=== PATIENT | male | born 1950 | race Caucasian/White ===

== ENCOUNTER → 2017-01-29 | Outpatient (CLI) | payer MEDICARE, OTHER ==
[~2017-01-29] MED LIST: AMOX1TAB10 PO; ASPI325T32 PO; ATOR80TA75 PO; DOCU-144 PO; GLIP-95 PO; HYDR-3498 PO; HYDR-906 PO; IBUP-1542 PO; LANT3I SC; LEVEM SC; LISI40TA9 PO; METF1000 PO; METF500T4 PO; NOVO3I SC
== END | disposition home or self-care (01) ==
LOC: DIB 10:57 → MERGE 10:57
PROVIDERS: ATTEND Family Medicine
DX: Z02.9 Encounter for administrative examinations, unspecified (principal)

== ENCOUNTER 2017-02-08 16:17 | Emergency (ER) | payer MEDICARE, OTHER ==
[~2017-02-08] VITALS: Wt 69.0 kg
[~2017-02-08 16:17] MED LIST changes: -AMOX1TAB10 PO; -HYDR-906 PO; -IBUP-1542 PO; -LEVEM SC
--- NOTE | 2017-02-08 17:06 | ERA ---
ER Documentation Chief Complaint Date/Time DATE: 02/08/17 TIME: 17:05 Chief Complaint PT HAVING PROBLEM SWALLOWING, SENT PER PMD FOR EVAL FOR ANGIOEDEMA, -SOB HPI The patient is a 66-year-old male, presenting to the ER because of sore throat after vomiting around 1 PM, initially food then mucus. He was sent to the ER by his physician because of swollen uvula. He was well prior to this incident. He denies fever, syncope, near syncope, neck pain, chest pain, dyspnea, abdominal pain, vomiting, dysuria, diarrhea. He does not smoke, drink Past medical history: Diabetes mellitus, hypertension, dyslipidemia, history of cerebellar infarct Past surgical history: Left shoulder arthroscopy, left great toe amputation ROS All systems reviewed and are negative except as per history of present illness. Medications Home Meds Active Scripts Hydrocodone/Acetaminophen (Printer 5-325 Tablet) 1 Each Tablet, 1 TAB PO Q6H Y for PAIN, #10 TAB Prov:JOSE GIL MD 02/08/17 Ibuprofen* (Motrin*) 600 Mg Tab, 600 MG PO Q6H Y for PAIN AND OR ELEVATED TEMP, #30 TAB Prov:JOSE GIL MD 02/08/17 Amoxicillin/Potassium Clav (Amox-Clav 875-125 mg Tablet) 875-125 mg Tab, 1 TAB PO BID for 10 Days, #20 TAB Prov:JOSE GIL MD 02/08/17 Atorvastatin* (Atorvastatin*) 80 Mg Tablet, 80 MG PO HS, #60 TAB 1 Refill Prov:KEVIN HAAS 01/09/17 Lisinopril* (Lisinopril*) 40 Mg Tablet, 40 MG PO DAILY, #60 TAB Prov:KEVIN HAAS 01/09/17 Reported Medications Metformin* (Glucophage*) 500 Mg Tab, 500 MG PO WITH BREAKFAST, #30 TAB 02/08/17 Insulin Detemir (Levemir) 100 Unit/1 Ml Vial, 15 UNIT SC QPM, VIAL 02/08/17 Discontinued Reported Medications Glipizide* (Glipizide*) 10 Mg Tablet, 10 MG PO BID, TAB 06/21/15 Metformin* (Glucophage*) 500 Mg Tab, 500 MG PO BID, TAB 06/21/15 Discontinued Scripts Aspirin (Aspir-Tia) 325 Mg Tablet.dr, 325 MG PO DAILY, #90 3 Refills Prov:KEVIN HAAS 01/09/17 Insulin Glargine* (Lantus*) 100 Unit/Ml Soln, 14 UNIT SC DAILY@20, #1 VIAL 1 Refill Prov:KEVIN HAAS 01/09/17 Insulin Aspart* (Novolog Insulin Pen*) 100 Unit/Ml Soln, 7 UNIT SC WITH MEALS, # 1 VIAL 1 Refill Prov:KEVIN HAAS 01/09/17 Metformin Hcl* (Metformin Hcl*) 1,000 Mg Tablet, 1000 MG PO WITH BREAKFAST DINNE , #60 TAB 3 Refills Prov:KEVIN HAAS 01/09/17 Hydrocodone Bit-Acetaminophen* (Printer*) 5-325 Mg Tab, 1 TAB PO Q4H Y for PAIN LEVEL 6-10 for 7 Days, TAB Prov:MYNOR RANGEL MD 06/26/15 Docusate Sodium* (Colace*) 100 Mg Cap, 100 MG PO BID Y for CONSTIPATION for 30 Days, TAB Prov:MYNOR RANGEL MD 06/26/15 Allergies Allergies: Coded Allergies: No Known Allergy (Unverified , 02/08/17) PMhx/Soc History of Surgery: Yes (LEFT SHOULDER SURGERY 50 YEARS AGO) Anesthesia Reaction: No Hx Neurological Disorder: No Hx Respiratory Disorders: No Hx Cardiac Disorders: Yes (htn) Hx Psychiatric Problems: No Hx Miscellaneous Medical Probl: Yes (DM2, HTN, dyslipidemia. ) Hx Alcohol Use: No Hx Substance Use: No Hx Tobacco Use: No Physical Exam Vitals Vital Signs Date Time Temp Pulse Resp B/P Pulse Ox O2 Delivery O2 Flow Rate FiO2 02/08/17 16:21 96.7 81 17 176/84 98 Physical Exam Const: No acute distress. Head: Atraumatic. Eyes: Normal Conjunctiva. ENT: Normal External Ears, Nose and Mouth. Edematous uvula, no exudate Neck: Full range of motion. No meningismus. Resp: Clear to auscultation bilaterally. Cardio: Regular rate and rhythm, no murmurs. Abd: Soft, non distended, normal bowel sounds, non tender. Skin: No petechiae or rashes. Back: No midline or flank tenderness. Ext: No cyanosis, or edema. Neur: Awake and alert. No focal deficit Psych: Normal Mood and Affect. Result Diagram: 02/08/17 1737 02/08/17 1737 Results 24 hrs Laboratory Tests Test 02/08/17 17:37 White Blood Count 8.010^3/ul Red Blood Count 4.2610^6/ul Hemoglobin 13.1g/dl Hematocrit 38.3% Mean Corpuscular Volume 89.9fl Mean Corpuscular Hemoglobin 30.8pg Mean Corpuscular Hemoglobin Concent 34.2g/dl Red Cell Distribution Width 12.2% Platelet Count 38853^3/UL Mean Platelet Volume 10.4fl Neutrophils % 70.2% Lymphocytes % 21.0% Monocytes % 6.8% Eosinophils % 1.4% Basophils % 0.5% Nucleated Red Blood Cells % 0.0/100WBC Neutrophils # 5.610^3/ul Lymphocytes # 1.710^3/ul Monocytes # 0.510^3/ul Eosinophils # 0.110^3/ul Basophils # 0.010^3/ul Nucleated Red Blood Cells # 0.010^3/ul Prothrombin Time 13.1Sec Prothrombin Time Ratio 1.0 INR International Normalized Ratio 0.99 Activated Partial Thromboplast Time 34.7Sec Sodium Level 137mmol/L Potassium Level 4.5mmol/L Chloride Level 102mmol/L Carbon Dioxide Level 28mmol/L Anion Gap 12 Blood Urea Nitrogen 23mg/dl Creatinine 0.97mg/dl Glucose Level 165mg/dl Calcium Level 9.4mg/dl Current Medications Medications (Trade) Dose Ordered Sig/Agustin Route PRN Reason Start Time Stop Time Status Last Admin Dose Admin Morphine Sulfate (morphine) 2 mg ONCE ONCE IV 02/08/17 18:00 02/08/17 18:01 DC 02/08/17 17:52 Ondansetron HCl (Zofran Inj) 4 mg ONCE STAT IV 02/08/17 17:38 02/08/17 17:39 DC 02/08/17 17:52 IV Flush 10 ml 10 ml STK-MED ONCE .ROUTE 02/08/17 18:39 02/08/17 18:40 DC 02/08/17 18:55 Sodium Chloride (NS) 100 ml @ ud STK-MED ONCE .ROUTE 02/08/17 18:39 02/08/17 18:40 DC 02/08/17 18:55 Iohexol (Omnipaque 300mg/ ml) 150 ml STK-MED ONCE .ROUTE 02/08/17 18:40 02/08/17 18:41 DC 02/08/17 18:55 Procedures/MDM [place] [id number] Radiology Main Line: [phone] DIAGNOSTIC IMAGING REPORT Patient: ITALO BILLY : 1950 Age: 66 Sex: M MR #: [id number] DOS: 02/08/17 172 Ordering MD: JOSE GIL MD Location: E/R Room/Bed: PROCEDURE: Soft tissue of the neck CLINICAL INDICATION: Rule out epiglottitis/uvulitis TECHNIQUE: AP and lateral soft tissue views of the neck were performed. COMPARISON: None FINDINGS: The epiglottis is unremarkable. There is appearance of mild prominence of the uvula/pharyngeal tonsils. The visualized soft tissues of the neck are otherwise unremarkable. Degenerative disk space narrowing and vertebral body osteophyte formation at C5-6. IMPRESSION: Mild prominence of the uvula/pharyngeal tonsils. RPTAT: HJES .Alfred Aaron MD, MD Date Time Electronically viewed and signed by .Alfred Aaron MD, MD on 02/08/2017 19:25 .S/ CC: JOSE GIL MD [place] [id number] Radiology Main Line: [phone] DIAGNOSTIC IMAGING REPORT Patient: ITALO BILLY : 1950 Age: 66 Sex: M MR #: [id number] DOS: 02/08/171725 Ordering MD: JOSE GIL MD Location: E/R Room/Bed: PROCEDURE: CT soft tissue neck with contrast. CLINICAL INDICATION: Uveitis / epiglottitis. TECHNIQUE: The study was performed utilizing a high-resolution multidetector CT scanner. Direct thin section helically acquired axial sections were obtained through the neck after the uneventful intravenous administration of 80 cc of Omnipaque-300. Coronal and sagittal reformations were obtained. The images were reviewed on a PACS workstation. The total CTDIvol is 8.69 mGy and the DLP is 212 mGy-cm. One or more of the following dose reduction techniques were used: - Automated exposure control. - Adjustment of the mA and/or kV according to patient size. Use of iterative reconstruction technique. COMPARISON: No prior studies are available for comparison. FINDINGS: The visible portions of the globes are unremarkable. The visible portions of the brain parenchyma are normal. The mastoid air cells and internal auditory canals are normal. The mandible is normal. There are degenerative osteophytes in the cervical spine. No acute bony fracture or bone metastasis is identified. The pulmonary vasculature and lung jerez are normal. No enlarged superior mediastinal or supraclavicular lymph nodes are identified. The thyroid gland trachea are normal. The vocal cords are normal. The piriform sinuses, epiglottis and glossoepiglottic folds are normal. The intrinsic musculature of the tongue is normal. The submandibular glands are unremarkable. There are small submandibular lymph nodes. The uvula is unremarkable. No enlarged cervical lymph nodes are identified. The nasal turbinates and nasal septum are normal. The pterygoid plates are normal. The great vessels of the superior mediastinum are normal. There is a dominant left vertebral artery and nondominant right vertebral artery. The common carotid arteries, internal and external branches of the common carotid arteries are normal except for some calcific plaquing along the medial wall of the right carotid bulb. IMPRESSION: 1. Atherosclerotic plaquing along the medial wall of the right carotid bulb. 2. No evidence of inflammation of the uvula or epiglottis. 3. Osteoarthritis of the cervical spine. 3. No soft tissue abscess is identified. RPTAT:AAJJ Physician Kaila Date Time Electronically viewed and signed by Physician Kaila on 02/08/2017 19:34 JM/ CC: JOSE GIL MD MEDICAL MAKING DECISION: The patient is a 66-year-old male, presenting to the ER because of acute uvulitis. He was treated with morphine 2 mg IV for pain, Zofran 4 mg IV for nausea with good response. The differential diagnoses considered include but are not limited to tonsillitis , pharyngeal abscess, pharyngeal cellulitis, epiglottitis, angioedema Departure Diagnosis: Primary Impression: Uvulitis Additional Impression: Anemia Condition: Good Comments He was discharged with Augmentin, Printer, Motrin I discussed the findings with the patient. I advised the patient to follow-up with the primary physician in about 1-2 days, sooner if needed and return if any concern. JOSE GIL MD February 08, 2017 17:06
[2017-02-08] MEDS ORDERED: ONDANSETRON 4 MG INJ IV STA (17:38)
[2017-02-08 17:49] LABS: ADD SCAN DIFF NO
[2017-02-08 17:51] LABS: BASOPHILS % 0.5 % (0.0-2.0); EOSINOPHILS # 0.1 10^3/ul (0.0-0.5); EOSINOPHILS % 1.4 % (0.0-7.0); HEMATOCRIT 38.3 % (42.0-52.0); HEMOGLOBIN 13.1 g/dl (14.0-18.0); LYMPHOCYTES # 1.7 10^3/ul (0.8-2.9); MEAN CORPUSCULAR HEMOGLOBIN 30.8 pg (29.0-33.0); MEAN CORPUSCULAR HGB CONC 34.2 g/dl (32.0-37.0); MEAN CORPUSCULAR VOLUME 89.9 fl (82.0-101.0); MEAN PLATELET VOLUME 10.4 fl (7.4-10.4); MONOCYTE # 0.5 10^3/ul (0.3-0.9); MONOCYTES % 6.8 % (0.0-11.0); NEUTROPHIL # 5.6 10^3/ul (1.6-7.5); NEUTROPHILS % 70.2 % (39.0-77.0); PLATELET COUNT 275 10^3/UL (140-415); RED BLOOD COUNT 4.26 10^6/ul (4.70-6.10); RED CELL DISTRIBUTION WIDTH 12.2 % (11.5-14.5)
[2017-02-08] MEDS ORDERED: morphine 2 MG INJ IV ONE (18:00)
[2017-02-08 18:07] LABS: INR 0.99; PROTIME 13.1 Sec (12.2-14.2)
[2017-02-08 18:08] LABS: PARTIAL THROMBOPLASTIN TIME 34.7 Sec (25.0-35.0)
[2017-02-08 18:11] LABS: CALCIUM 9.4 mg/dl (8.4-10.2); CREATININE 0.97 mg/dl (0.61-1.24); POTASSIUM 4.5 mmol/L (3.5-5.1)
[2017-02-08] MEDS ORDERED: LEVEM SC (18:39)
[2017-02-08] MEDS ORDERED: SOD CHLORIDE 0.9% 100 ML ONE (18:39)
[2017-02-08] MEDS ORDERED: IOHEXOL 300MG/ML 150 ML BTL ONE (18:40)
[2017-02-08] MEDS ORDERED: METF500T4 PO (18:41)
--- NOTE | 2017-02-08 19:26 | RADRPT ---
PROCEDURE: Soft tissue of the neck CLINICAL INDICATION: Rule out epiglottitis/uvulitis TECHNIQUE: AP and lateral soft tissue views of the neck were performed. COMPARISON: None FINDINGS: The epiglottis is unremarkable. There is appearance of mild prominence of the uvula/pharyngeal tons ils. The visualized soft tissues of the neck are otherwise unremarkable. Degenerative disk space na rrowing and vertebral body osteophyte formation at C5-6. IMPRESSION: Mild prominence of the uvula/pharyngeal tonsils. RPTAT: HJES .Alfred Aaron MD, MD Date Time Electronically viewed and signed by .Alfred Aaron MD, on 02/08/2017 19:25 .S/
--- NOTE | 2017-02-08 19:35 | RADRPT ---
PROCEDURE: CT soft tissue neck with contrast. CLINICAL INDICATION: Uveitis / epiglottitis. TECHNIQUE: The study was performed utilizing a high-resolution multidetector CT scanner. Direct th in section helically acquired axial sections were obtained through the neck after the uneventful int ravenous administration of 80 cc of Omnipaque-300. Coronal and sagittal reformations were obtained. The images were reviewed on a PACS workstation. The total CTDIvol is 8.69 mGy and the DLP is 212 mGy -cm. One or more of the following dose reduction techniques were used: - Automated exposure control. - Adjustment of the mA and/or kV according to patient size. Use of iterative reconstruction technique. COMPARISON: No prior studies are available for comparison. FINDINGS: The visible portions of the globes are unremarkable. The visible portions of the brain parenchyma a re normal. The mastoid air cells and internal auditory canals are normal. The mandible is normal. There are degenerative osteophytes in the cervical spine. No acute bony fracture or bone metastasi s is identified. The pulmonary vasculature and lung jerez are normal. No enlarged superior mediastinal or supraclav icular lymph nodes are identified. The thyroid gland trachea are normal. The vocal cords are normal. The piriform sinuses, epiglottis and glossoepiglottic folds are normal. The intrinsic musculature of the tongue is normal. The submandibular glands are unremarkable. There are small submandibular lymph nodes. The uvula is unremarkable. No enlarged cervical lymph nodes are identified. The nasal turbinates and nasal septum are normal. The pterygoid plates are normal. The great vessels of the superior mediastinum are normal. There is a dominant left vertebral artery and nondominant right vertebral artery. The common carotid arteries, internal and external branche s of the common carotid arteries are normal except for some calcific plaquing along the medial wall of the right carotid bulb. IMPRESSION: 1. Atherosclerotic plaquing along the medial wall of the right carotid bulb. 2. No evidence of inflammation of the uvula or epiglottis. 3. Osteoarthritis of the cervical spine. 3. No soft tissue abscess is identified. RPTAT:AAJJ Rudolph Francia, Physician Date Time Electronically viewed and signed by Rudolph Feldman Physician on 02/08/2017 19:34 JM/
[2017-02-08] MEDS ORDERED: AMOX1TAB10 PO (19:57)
[2017-02-08] MEDS ORDERED: HYDR-906 PO (19:58)
[2017-02-08] MEDS ORDERED: IBUP-1542 PO (19:58)
[2017-02-08 20:13] VITALS: BP 166/75; PULSE 72; RESP 17; TEMP 98
== END 2017-02-08 20:15 | disposition home or self-care (01) ==
LOC: E/R 16:17
DX: K12.2 Cellulitis and abscess of mouth (principal); D64.9 Anemia, unspecified; E11.9 Type 2 diabetes mellitus without complications; I10 Essential (primary) hypertension; Z79.4 Long term (current) use of insulin; Z79.82 Long term (current) use of aspirin; Z79.84 Long term (current) use of oral hypoglycemic drugs
CPT/HCPCS: 36415; 70360; 70491; 80048; 85025; 85610; 85730; 96374; 96375; 99285; J2270; J2405; Q9967

== ENCOUNTER 2018-01-06 23:39 | Inpatient (IN) | END 2018-01-15 17:40 | disposition home or self-care (01) | DRG 854 ==

== ENCOUNTER 2018-02-12 09:32 | Day surgery (SDC) | END 2018-02-12 17:43 | disposition home or self-care (01) ==

== ENCOUNTER 2018-02-13 05:24 | Day surgery (SDC) | END 2018-02-13 10:15 | disposition home or self-care (01) ==

== ENCOUNTER → 2018-11-10 | Outpatient (CLI) | payer MEDICARE, OTHER ==
[~2018-11-10] MED LIST changes: +AMLO5TAB4 PO; -ASPI325T32 PO; -ATOR80TA75 PO; -DOCU-144 PO; -GLIP-95 PO; -HYDR-3498 PO; +INSU100I27 SQ; -LANT3I SC; +LEVO500T48 PO; -LISI40TA9 PO; -METF1000 PO; -METF500T4 PO; -NOVO3I SC
== END | disposition home or self-care (01) ==
LOC: U/S 14:51
PROVIDERS: ATTEND Internal Medicine
DX: N28.9 Disorder of kidney and ureter, unspecified (principal)
CPT/HCPCS: 76775

== ENCOUNTER 2019-01-29 07:50 | Inpatient (IN) | payer MEDICARE, OTHER ==
[~2019-01-29] VITALS: Ht 170.2 cm; Wt 68.0 kg
[2019-01-29] VITALS (9 sets, daily range): BP systolic 149–220; BP diastolic 66–107; PULSE 72–88; RESP 16–22; Ht 170.2 cm; Wt 68.0 kg
[2019-01-29] MEDS ORDERED: SOD CHLORIDE 0.9% 1,000 ML IV STA (08:12)
[2019-01-29] MEDS ORDERED: ONDANSETRON 4 MG INJ IV STA (08:12)
[2019-01-29] MEDS ORDERED: LIDOCAINE/MYLANTA 40 ML BTL PO STA (08:25)
[2019-01-29] MEDS ORDERED: BELLADONNA/PHENOBARBITAL TAB PO STA (08:25)
[2019-01-29] MEDS ORDERED: ASPIRIN 325 MG TAB PO STA (09:23)
[2019-01-29] MEDS ORDERED: ONDANSETRON 4 MG INJ IV PRN ×2 (09:30→14:00)
[2019-01-29] MEDS ORDERED: ACETAMINOPHEN 325 MG TAB PO PRN ×2 (09:30→13:30)
--- NOTE | 2019-01-29 10:52 | ERD ---
ER Documentation Chief Complaint Chief Complaint PROGRESSIVE LOSS OF APPETITE AND DIFFICULTY SWALLOWING. HPI This is a 68-year-old male with history of hypertension, insulin-dependent diabetes mellitus and difficulty swallowing. The patient indicates that the difficulty swelling has been present for over 6 months. He has been seen by his primary care physician who prescribed glycopyrrolate 1 mg tablet. However he indicated this did not improve his symptoms. Therefore his primary care physician Dr. tMz referred him to an ENT specialist to put him on clotrimazole 10 mg tablets. The patient indicates however that this has not improved his symptoms. He complains of a mild retrosternal burning pain. Is worse at night when he lies down. He also complains of pain in his right calf. The pain in his right calf is been present for several months. Vascular studies were performed by his primary care physician and found to be negative for deep vein thrombosis. The patient denies any chest pain or pressure. He has no shortness of breath at rest or exertion. He also has a known history of chronic kidney disease not on dialysis. ROS All systems reviewed and are negative except as per history of present illness. Medications Home Meds Reported Medications Levofloxacin* (Levaquin*) 500 Mg Tablet, 500 MG PO DAILY, TAB STARTED 02-04-18 FOR 10 DAYS 02/12/18 Amlodipine Besylate* (Norvasc*) 5 Mg Tablet, 5 MG PO DAILY, TAB 02/12/18 Insulin Detemir (Levemir Flextouch) 100 Unit/1 Ml Insuln.pen, 0 SQ QAM SLIDING SCALE 02/12/18 Allergies Allergies: Coded Allergies: No Known Allergy (Unverified , 02/12/18) PMhx/Soc History of Surgery: Yes (L ELBOW ORIF, 5TH METATARSAL R FOOT AMPUTATION, ATERIOGRAM R LEG) Anesthesia Reaction: No Hx Neurological Disorder: No Hx Respiratory Disorders: No Hx Cardiac Disorders: Yes (HTN,PVD) Hx Psychiatric Problems: No Hx Miscellaneous Medical Probl: No Hx Alcohol Use: No Hx Substance Use: No Hx Tobacco Use: No Smoking Status: Former smoker Physical Exam Vitals Vital Signs Date Temp Pulse Resp B/P (MAP) Pulse Ox O2 O2 Flow FiO2 Time Delivery Rate 01/29/19 Nasal 2 08:35 Cannula 01/29/19 97.5 89 17 196/118 99 08:08 (144) Physical Exam Constitutional:Well-developed. Well-nourished. HEENT:Normocephalic. Atraumatic.Pupils were equal round reactive to light. Moist mucous membranes.No tonsillar exudates. Neck: No nuchal rigidity. No lymphadenopathy. No posterior cervical spine tenderness or step-offs. Respiratory: Not using accessory muscles of respiration.Lungs were clear to auscultation bilaterally. No rhonchi. No rales. No wheezing. Cardiovascular: Regular rate regular rhythm.No murmurs. No rubs were appreciated.S1, S2 normal. Distal pulses are palpable 2+ bilaterally. GI: Abdomen was soft. Nontender. Non Distended. No pulsatile abdominal masses or bruits. No rebound. No guarding. Bowel sounds were present and normal. Muscle skeletal: Full range of motion of both the upper and lower extremities bilaterally.Normal muscle tone.tenderness of the right calf with negative Homans sign. No asymmetrical swelling of the bilateral calves. Skin: No petechia, no purpura. No lesions on the palms or the soles of the feet. No maculopapular rash. NEURO: Patient was alert, awake, orientated x3.No facial droop. Gait observed and normal with no ataxia.Speech had regular rate and rhythm. No focal ne urological deficits. Result Diagram: 01/29/19 0834 01/29/19 0834 Results 24 hrs Laboratory Tests Test 01/29/19 08:33 01/29/19 08:34 Prothrombin Time 13.7 Sec Prothrombin Time Ratio 1.1 INR International Normalized Ratio 1.04 Activated Partial Thromboplast Time 40.0 Sec White Blood Count 7.9 10^3/ul Red Blood Count 3.79 10^6/ul Hemoglobin 11.5 g/dl Hematocrit 33.6 % Mean Corpuscular Volume 88.7 fl Mean Corpuscular Hemoglobin 30.3 pg Mean Corpuscular Hemoglobin Concent 34.2 g/dl Red Cell Distribution Width 12.1 % Platelet Count 386 10^3/UL Mean Platelet Volume 9.6 fl Immature Granulocytes % 1.000 % Neutrophils % 67.1 % Lymphocytes % 19.2 % Monocytes % 8.0 % Eosinophils % 4.1 % Basophils % 0.6 % Nucleated Red Blood Cells % 0.0 /100WBC Immature Granulocytes # 0.080 10^3/ul Neutrophils # 5.3 10^3/ul Lymphocytes # 1.5 10^3/ul Monocytes # 0.6 10^3/ul Eosinophils # 0.3 10^3/ul Basophils # 0.1 10^3/ul Nucleated Red Blood Cells # 0.0 10^3/ul Sodium Level 138 mmol/L Potassium Level 4.8 mmol/L Chloride Level 106 mmol/L Carbon Dioxide Level 22 mmol/L Anion Gap 10 Blood Urea Nitrogen 42 mg/dl Creatinine 3.25 mg/dl Est Glomerular Filtrat Rate mL/min 19 mL/min Glucose Level 179 mg/dl Calcium Level 9.5 mg/dl Total Bilirubin 0.4 mg/dl Direct Bilirubin 0.00 mg/dl Indirect Bilirubin 0.4 mg/dl Aspartate Amino Transf (AST/SGOT) 15 IU/L Alanine Aminotransferase (ALT/SGPT) < 6 IU/L Alkaline Phosphatase 95 IU/L Creatine Kinase 58 IU/L Creatine Kinase Index 1.7 Creatinine Kinase MB (Mass) 0.96 ng/ml Troponin I 0.370 ng/ml B-Type Natriuretic Peptide 2650 PG/ML Total Protein 7.6 g/dl Albumin 3.8 g/dl Globulin 3.80 g/dl Albumin/Globulin Ratio 1.00 Lipase 97 U/L Current Medications Medications Dose Sig/Agustin Start Time Status Last (Trade) Ordered Route PRN Stop Time Admin Dose Reason Admin Sodium 1,000 ml @ Q1H STAT 01/29/19 DC 01/29/19 Chloride 1,000 mls/hr IV 08:12 08:40 01/29/19 09:11 Ondansetron 4 mg ONCE STAT 01/29/19 DC 01/29/19 HCl (Zofran IV 08:12 08:40 Inj) 01/29/19 08:13 40 ml ONCE STAT 01/29/19 DC 01/29/19 Miscellaneous PO 08:25 08:40 Medication 01/29/19 08:28 (Gi Cocktail (2)) Belladonna/ 2 tab ONCE STAT 01/29/19 DC 01/29/19 Phenobarbital PO 08:25 08:40 () 01/29/19 08:28 Aspirin 325 mg ONCE STAT 01/29/19 DC 01/29/19 (Aspirin) PO 09:23 09:29 01/29/19 09:24 Ondansetron 4 mg ER BRIDGE 01/29/19 HCl (Zofran PRN IV 09:30 Inj) NAUSEA/VOMITI 01/30/19 09:29 NG 650 mg ER BRIDGE 01/29/19 Acetaminophen PRN PO 09:30 (Tylenol .MILD PAIN 01/30/19 09:29 Tab) 1-3 OR TEMP Procedures/MDM This is 68-year-old male that presented to the emergency department difficulty swallowing decreased appetite for the past 4 days. He did show signs of clinical dehydration therefore was placed on a digital sales planner and given IV normal saline. The patient's troponin was elevated. The patient however has acute on chronic kidney injury. The patient will be admitted to the hospital to undergo serial twelve-lead EKG tracings and cardiac enzymes. He was given aspirin in the emergency department. Dr. Richard, kindly stated he will evaluate the patient. I have ordered an echocardiogram. I spoke with his PCP Dr. Mtz who will be the admitting physician. 12 Lead EKG tracing ordered and reviewed by myself showed: Normal sinus rhythm of 89 bpm and no arrhythmia. OH interval normal. QRS duration normal. No ST segment elevation No ST segment depression. No changes consistent with acute ischemia. Regarding the patient's difficulty in swallowing, the patient had no focal n eurological deficits. There is no saliva present within the oropharynx or pooling of secretions within the oropharynx. No stridor. This is been present for over 6 months. Chest radiograph reviewed by myself showed no cardiomegaly there is no evidence of tracheal deviation. Departure Diagnosis: Primary Impression: Non-STEMI (non-ST elevated myocardial infarction) Additional Impression: Kidney injury Encounter type: subsequent encounter Laterality: unspecified laterality Qualified Codes: S37.009D - Unspecified injury of unspecified kidney, subsequent encounter Condition: Serious WANDY SANTIAGO MD January 29, 2019 10:52
[2019-01-29] MEDS ORDERED: DULA1.5P SQ (10:54)
[2019-01-29] MEDS ORDERED: ATOR40TA68 PO (10:55)
[2019-01-29] MEDS ORDERED: ERGO500013 PO (10:55)
[2019-01-29] MEDS ORDERED: METO-336 PO (10:56)
[2019-01-29] MEDS ORDERED: AMLO5TAB4 PO (10:56)
[2019-01-29] MEDS ORDERED: RANI150T5 PO (10:57)
[2019-01-29] MEDS ORDERED: GLYC1TAB PO (10:57)
[2019-01-29] MEDS ORDERED: METOPROLOL (XL) 100 MG TAB PO SCH ×2 (13:00→21:00)
[2019-01-29] MEDS ORDERED: NON-FORMULARY/PATIENT OWN MED (Dulaglutide (Trulicity) 1.5 MG) SQ SCH (13:00)
[2019-01-29] MEDS ORDERED: AMLODIPINE 5 MG TAB PO SCH (13:00)
[2019-01-29] MEDS ORDERED: GLUCOSE GEL 15 GRAM TUBE BUCCAL PRN (13:30)
[2019-01-29] MEDS ORDERED: GLUCAGON 1 MG INJ IM PRN (13:30)
[2019-01-29] MEDS ORDERED: NACL 0.9% 3 ML SYG IV SCH ×3 (13:30)
[2019-01-29] MEDS ORDERED: DEXTROSE 50% 50 ML SYRINGE IV PRN ×2 (13:30)
[2019-01-29] MEDS ORDERED: GLUCOSE GEL 15 GRAM TUBE PO PRN ×2 (13:30)
--- NOTE | 2019-01-29 13:46 | HP ---
Date/Time of Note Date/Time of Note DATE: 01/29/19 TIME: 13:33 Assessment/Plan VTE Prophylaxis SCD applied (from Nsg): Yes Pharmacological prophylaxis: heparin Lines/Catheters IV Catheter Type (from Nrsg): Saline Lock Assessment/Plan Problems: (1) Non-STEMI (non-ST elevated myocardial infarction) Status: Acute Comment: Likely elevated due to CKD but pt. may have small, subendocardial leak due to dehydration. Defer to cardiology consult. (2) Disturbance of salivary secretion Status: Chronic Comment: Suspect this is in response to nausea. Will give protonix 40 mg bid, reglan 5 mg qac, and ondansetron 4 mg IV prn. Monitor. Pt. reassured he has no evidence of a salivary problem found by either myself or ENT. (3) Pain of right leg Status: Acute Comment: Check arterial duplex BLE. May need to return to vascular surgery service. (4) Type 2 diabetes mellitus with diabetic chronic kidney disease Status: Chronic Comment: Pt. on trulicity 1.5 mg weekly. Will cont. this but may be causing pt.'s nausea and other symptoms. Check glucose qac/qhs and give correctional insulin as needed. (5) Kidney injury Status: Acute Comment: Cr slightly above baseline. Will hydrate w/ 75 mL/hr NS and monitor. Qualifiers: Encounter type: subsequent encounter Laterality: unspecified laterality Qualified Codes: S37.009D - Unspecified injury of unspecified kidney, subsequent encounter (6) Chronic kidney disease, stage IV (severe) Status: Chronic Comment: Baseline Cr 2.5-3.0 (7) Hyperlipidemia Status: Chronic Comment: Has been started on atorvastatin for outpt. LDL 189. However, not on his med list. Will initiate 40 mg daily here. (8) Essential (primary) hypertension Status: Chronic Comment: BP elevated. Resume home meds of metoprolol and amlodipine and monitor. (9) Vitamin D deficiency Status: Chronic Comment: Cont. VitD 50,000 units weekly Result Diagram: 01/29/19 0834 01/29/19 0834 Results 24hrs Laboratory Tests Test 01/29/19 08:33 01/29/19 08:34 01/29/19 12:50 Prothrombin Time 13.7 Prothrombin Time Ratio 1.1 INR International Normalized Ratio 1.04 Activated Partial Thromboplast Time 40.0 H White Blood Count 7.9 Red Blood Count 3.79 L Hemoglobin 11.5 L Hematocrit 33.6 L Mean Corpuscular Volume 88.7 Mean Corpuscular Hemoglobin 30.3 Mean Corpuscular Hemoglobin Concent 34.2 Red Cell Distribution Width 12.1 Platelet Count 386 Mean Platelet Volume 9.6 Immature Granulocytes % 1.000 H Neutrophils % 67.1 Lymphocytes % 19.2 Monocytes % 8.0 Eosinophils % 4.1 Basophils % 0.6 Nucleated Red Blood Cells % 0.0 Immature Granulocytes # 0.080 H Neutrophils # 5.3 Lymphocytes # 1.5 Monocytes # 0.6 Eosinophils # 0.3 Basophils # 0.1 Nucleated Red Blood Cells # 0.0 Sodium Level 138 Potassium Level 4.8 Chloride Level 106 Carbon Dioxide Level 22 Anion Gap 10 Blood Urea Nitrogen 42 H Creatinine 3.25 H Est Glomerular Filtrat Rate mL/min 19 L Glucose Level 179 Calcium Level 9.5 Total Bilirubin 0.4 Direct Bilirubin 0.00 Indirect Bilirubin 0.4 Aspartate Amino Transf (AST/SGOT) 15 Alanine Aminotransferase (ALT/SGPT) < 6 L Alkaline Phosphatase 95 Creatine Kinase 58 Creatine Kinase Index 1.7 Creatinine Kinase MB (Mass) 0.96 Troponin I 0.370 *H B-Type Natriuretic Peptide 2650 H Total Protein 7.6 Albumin 3.8 Globulin 3.80 H Albumin/Globulin Ratio 1.00 Lipase 97 Bedside Glucose 99 HPI/ROS Admit Date/Time Admit Date/Time January 29, 2019 at 10:16 Hx of Present Illness 68 y/o H M relatively new to my practice for last 4 m. Pt. w/ h/o T2DM, PVD s/p toe amputations, HTN, recently discovered to have later-stage CKD, and hyperlipidemia. Pt. w/ chronic complaints of increased salivary production. Has been given trial of glycopyrrolate which was not effective and referred to ENT who treated w/ clotrimazole lozenges which was marginally effective. Pt. reports that for last 3 days has been unable to sleep due to increased salivary production which he associates w/ nausea and vomiting of stomach acid. No appetite. Pt. also c/o RLE pain although had already been ruled out for DVT. Came to ER early this am due to 3rd night of no sleep due to his symptoms. In ER had elevated BP but was found to have elevated troponin at 0.37. Admitted for r/o NSTEMI. ROS Constitutional: no complaints, nausea Eyes: no complaints ENT: other (increased salivary production) Respiratory: no complaints Cardiovascular: no complaints Gastrointestinal: decreased appetite, nausea, vomiting Genitourinary: no complaints Musculoskeletal: bone/joint pain (R calf) Neurologic: no complaints PMH/Family/Social Past Medical History Medical History: diabetes, high cholesterol, hypertension, renal disease, other (PVD) Medications Current Medications Amlodipine Besylate (Norvasc) 5 mg DAILY PO ; Start 01/29/19 at 13:00 Atorvastatin Calcium (Lipitor) 40 mg QHS PO ; Start 01/29/19 at 21:00 Ergocalciferol (Drisdol) 50,000 unit We@0900 PO ; Start 02/04/19 at 09:00 Glycopyrrolate (Robinul) 1 mg BID PO ; Start 01/29/19 at 13:00 Metoprolol Succinate (Toprol Xl) 100 mg DAILY PO ; Start 01/29/19 at 13:00 Ranitidine HCl (Zantac) 150 mg Q12 PO ; Start 01/29/19 at 21:00 Miscellaneous Information 1.5 mg Q SUN SQ ; Start 01/29/19 at 13:00; Status UNV IV Flush (NS 3 ml) 3 ml PER PROTOCOL IV ; Start 01/29/19 at 13:30 Acetaminophen (Tylenol Tab) 650 mg Q6H PRN PO .PAIN 1-3 OR TEMP; Start 01/29/19 at 13:30 Heparin Sodium (Porcine) (Heparin (5000 Units/1ml)) 5,000 unit Q12 SC ; Start 01/29/19 at 21:00 Insulin Aspart (Novolog Insulin Pen) NOVOLOG *MILD* ALGORITHM WITH MEALS BEDTIME SC ; Start 01/29/19 at 17:55 Sodium Chloride 1,000 ml @ 75 mls/hr [id number] IV ; Start 01/29/19 at 13:30 Miscellaneous Information 1 ea NOTE XX ; Start 01/29/19 at 13:30 Glucose (Glutose) 15 gm Q15M PRN PO DECREASED GLUCOSE; Start 01/29/19 at 13:30 Glucose (Glutose) 22.5 gm Q15M PRN PO DECREASED GLUCOSE; Start 01/29/19 at 13:30 Dextrose (D50w Syringe) 25 ml Q15M PRN IV DECREASED GLUCOSE; Start 01/29/19 at 13:30 Dextrose (D50w Syringe) 50 ml Q15M PRN IV DECREASED GLUCOSE; Start 01/29/19 at 13:30 Glucagon (Glucagen) 1 mg Q15M PRN IM DECREASED GLUCOSE; Start 01/29/19 at 13:30 Glucose (Glutose) 15 gm Q15M PRN BUCCAL DECREASED GLUCOSE; Start 01/29/19 at 13:30 Coded Allergies: No Known Allergy (Unverified , 01/29/19) Past Surgical History Past Surgical Hx: other (toe amp, R forearm ORIF) Family History Significant Family History: cancer (pharynx), diabetes (brother), other (PUD in mother) Social History b. 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 ago) Drug Use: none Exam/Review of Systems Vital Signs Vitals VS - Last 72 Hours, by Label Date Temp Pulse Resp B/P (MAP) Pulse Ox O2 O2 Flow FiO2 Time Delivery Rate 01/29/19 85 12:03 01/29/19 97.8 88 18 198/95 96 Room Air 11:50 (129) 01/29/19 84 18 178/76 100 Room Air 10:51 (110) 01/29/19 Nasal 2 08:35 Cannula 01/29/19 97.5 89 17 196/118 99 08:08 (144) Vital Signs Date Temp Pulse Resp B/P (MAP) Pulse Ox O2 O2 Flow FiO2 Time Delivery Rate 01/29/19 85 12:03 01/29/19 97.8 18 198/95 96 Room Air 11:50 (129) 01/29/19 2 08:35 Exam Constitutional: alert, oriented, well developed Psych: no complaints, nl mood/affect Eyes: nl conjunctiva, EOMI, nl lids, nl sclera, PERRL ENMT: nl external ears & nose, mucosa pink and moist Neck: supple, non-tender; No bruits, No masses, No thyromegaly Respiratory: clear to auscultation, normal air movement Cardiovascular: regular rate and rhythm, nl pulses; No edema, No murmurs/extra sounds, No rub Gastrointestinal: soft, nl liver, spleen, non-tender, bowel sounds; No mass, No rebound or guarding Musculoskeletal: nl extremities to inspection Extremities: normal pulses; No cyanosis, No clubbing, No edema Neurological: HAND SOLE SEWER II-XII intact, nl mental status, nl speech, nl strength JOSE PARRY MD January 29, 2019 13:44
[2019-01-29] MEDS: GLYCOPYRROLATE 1 MG TAB PO SCH ×2 (14:24→21:06)
[2019-01-29] MEDS: SOD CHLORIDE 0.9% 1,000 ML IV SCH (14:27)
--- NOTE | 2019-01-29 14:58 | RADRPT ---
Echocardiogram Report Patient Name: Wilda BEARnt ID: [id number] : [id number] (68y 9m)Study Date: 01/29/2019 10:51:10 AM Gender: Carmelocession #: [id number] Tech: LE Location: [facility] Ref.Physician: WANDY SANTIAGO Height(Cm): BSA: Weight(Kg): Quality: GoodOrder Physician: WANDY SANTIAGO Account #: Procedures: Echocardiographic Report: Transthoracic echocardiogram with complete 2D, M-Mode, and doppler examination. Indications: NSTEMI. Measurements: 2D/M Mode Doppler Measurement Value Normal Range Measurement Value Normal Range LVIDd 2D 4.1 [ 4.2 - 5.8 ] cm AV Mean Vicente 0.7 [ 70.0 - 90.0 ] cm/sec LVIDs 2D 2.8 [ 2.5 - 4.0 ] cm AV Mean PG 2.0 [ 2.0 - 4.0 ] mmHg LVPWd 2D 1.1 [ 0.6 - 1.0 ] cm AV Peak Vicente 1.0 [ 100.0 - 170.0 ] cm/sec IVSd 2D 1.1 [ 0.6 - 1.0 ] cm AV Peak PG 4.0 [ 2.0 - 9.0 ] mmHg EDV 2D 73.8 [ 62.0 - 150.0 ] ml AV VTI 21.3 cm ESV 2D 29.8 [ 21.0 - 61.0 ] ml AI Peak PG 61.0 mmHg EF 2D 59.6 [ 52.0 - 72.0 ] percent AI Peak Vicente 3.9 cm/sec LVOT Diam 2.0 [ 2.3 - 2.9 ] cm AI PHT 310.0 msec LVOT Peak Vicente 0.8 [ 70.0 - 110.0 ] cm/sec LVOT Peak PG 3.0 [ 2.0 - 6.0 ] mmHg MV E Peak Vicente 0.7 [ 60.0 - 130.0 ] cm/sec MV A Peak Vicente 1.2 [ 100.0 - 120.0 ] cm/sec MV E/A 0.6 [ 0.8 - 1.5 ] ratio MV Decel Time 261 [ 104 - 258 ] msec Lat E` Vicente 0.1 [ 10.0 - 15.0 ] cm/sec Lateral E/E` 13.9 [ 1.0 - 2.0 ] ratio Med E` Vicente 0.0 cm/sec MV E/A 0.6 [ 0.8 - 1.5 ] ratio TR Peak Vicente 2.6 [ 100.0 - 280.0 ] cm/sec TR Peak PG 27.0 mmHg PV Peak Vicente 0.9 [ 40.0 - 80.0 ] cm/sec PV Peak PG 3.0 mmHg Findings: Left Ventricle: Normal left ventricular systolic function. Normal left ventricular cavity size. Mild concentric left ventricular hypertrophy. Ejection fraction is visually estimated at 60 %. Tissue Doppler/Mitral Doppler indices are consistent with impaired relaxation (Stage I diastolic dysfunction). Right Ventricle: Normal right ventricular size. Normal right ventricular systolic function. Left Atrium: The left atrium is normal in size. Right Atrium: The right atrium is normal in size. Mitral Valve: Mild mitral annular calcification. Mild mitral valve regurgitation. Aortic Valve: Normal appearance of the aortic valve. No hemodynamically significant aortic stenosis by doppler. Mild aortic valve regurgitation. Tricuspid Valve: Normal appearance of the tricuspid valve. Estimated peak PA systolic pressure 30 mmHg. There is mild tricuspid regurgitation. Pulmonic Valve: Pulmonic valve not well visualized. No evidence of pulmonic regurgitation. Pericardium: Normal pericardium with no significant pericardial effusion. Aorta: Normal aortic root. IVC: Normal size and normal respiratory collapse consistent with normal right atrial pressure. Conclusions: Normal left ventricular systolic function. Normal left ventricular cavity size. Mild concentric left ventricular hypertrophy. Ejection fraction is visually estimated at 60 %. Tissue Doppler/Mitral Doppler indices are consistent with impaired relaxation (Stage I diastolic dysfunction). Normal right ventricular size. Normal right ventricular systolic function. The left atrium is normal in size. The right atrium is normal in size. Mild mitral valve regurgitation. No hemodynamically significant aortic stenosis by doppler. Mild aortic valve regurgitation. There is mild tricuspid regurgitation. Normal pericardium with no significant pericardial effusion. Electronically Signed By: Michele Richard 2019-01-29 14:57:29 PDT
--- NOTE | 2019-01-29 16:04 | CONS ---
Assessment/Plan Assessment/Plan Hospital Course (Demo Recall) Hypertension urgency Mildly elevated troponin Acute kidney injury with history of chronic kidney disease Preserved left ventricular ejection fraction Mitral, aortic and tricuspid valve regurgitation Diabetes Peripheral arterial disease Patient presented with symptoms of increased saliva production over the past few months and incidentally found to have elevated blood pressure and elevated t roponin. Blood pressure in the emergency was above 190 systolic, current blood pressure is 216 systolic Denies any symptoms of chest pain or shortness of breath. Elevated troponin likely secondary to hypertension urgency as well as poor renal function/clearance Echocardiogram with preserved left ventricular ejection fraction. Will check serial cardiac enzymes Agree with IV fluid hydration Norvasc has been increased to twice daily. Change Toprol-XL to carvedilol for better blood pressure control. Would add hydralazine as needed. Would add aspirin, continue statin therapy Consultation Date/Type/Reason Admit Date/Time January 29, 2019 at 10:16 Type of Consult Cardiology Reason for Consultation Elevated troponin Date/Time of Note DATE: 01/29/19 TIME: 15:55 Hx of Present Illness This is a 68-year-old male with past medical history of diabetes, hypertension, peripheral arterial disease, chronic kidney disease who presents emergency room with symptoms of increased salivary production. This has been going on for a number of months now and etiology still unclear. On routine laboratory studies, patient found to have elevated troponin and for this reason cardiology c onsultation was requested. Patient denies any symptoms of chest pain, shortness of breath, palpitations or dizziness. Complains of decreased p.o. intake because of his salivary problems. Also for discussion, he does tell me his blood pressure has not been well controlled. Blood pressure in the emergency room was 196/118, current blood pressure while I am examining him is systolic of 216. Denies any abdominal pain currently, cough. 12 point review of systems was performed with all pertinent positives and negatives mentioned above and all else is negative Past Medical History Peripheral arterial disease Medical History: diabetes, hypertension, renal disease Home Meds Reported Medications Glycopyrrolate* (Glycopyrrolate*) 1 Mg Tablet, 1 MG PO BID, TAB 01/29/19 Ranitidine Hcl* (Ranitidine Hcl*) 150 Mg Tablet, 150 MG PO Q12, #60 TAB 01/29/19 Amlodipine Besylate* (Norvasc*) 5 Mg Tablet, 5 MG PO DAILY, TAB 01/29/19 Metoprolol Succinate* (Toprol XL*) 100 Mg Tab.sr.24h, 100 MG PO DAILY, #30 TAB 01/29/19 Ergocalciferol (Vitamin D2) (VITAMIN D2) 50,000 Unit Capsule, 95583 UNIT PO Q FRI, CAP 01/29/19 Atorvastatin* (Atorvastatin*) 40 Mg Tablet, 40 MG PO QHS, #30 TAB 01/29/19 Dulaglutide (Trulicity) 1.5 Mg/0.5 Ml Pen.injctr, 1.5 MG SQ Q SUN 01/29/19 Discontinued Reported Medications Levofloxacin* (Levaquin*) 500 Mg Tablet, 500 MG PO DAILY, TAB STARTED 02-04-18 FOR 10 DAYS 02/12/18 Amlodipine Besylate* (Norvasc*) 5 Mg Tablet, 5 MG PO DAILY, TAB 02/12/18 Insulin Detemir (Levemir Flextouch) 100 Unit/1 Ml Insuln.pen, 0 SQ QAM SLIDING SCALE 02/12/18 Medications Current Medications Atorvastatin Calcium (Lipitor) 40 mg QHS PO ; Start 01/29/19 at 21:00 Ergocalciferol (Drisdol) 50,000 unit We@0900 PO ; Start 02/04/19 at 09:00 Glycopyrrolate (Robinul) 1 mg BID PO Last administered on 01/29/19at 14:24; Admin Dose 1 MG; Start 01/29/19 at 13:00 Ranitidine HCl (Zantac) 150 mg Q12 PO ; Start 01/29/19 at 21:00 Miscellaneous Information 1.5 mg Q SUN SQ ; Start 01/29/19 at 13:00; Status UNV IV Flush (NS 3 ml) 3 ml PER PROTOCOL IV ; Start 01/29/19 at 13:30 Acetaminophen (Tylenol Tab) 650 mg Q6H PRN PO .PAIN 1-3 OR TEMP; Start 01/29/19 at 13:30 Heparin Sodium (Porcine) (Heparin (5000 Units/1ml)) 5,000 unit Q12 SC ; Start 01/29/19 at 21:00 Insulin Aspart (Novolog Insulin Pen) NOVOLOG *MILD* ALGORITHM WITH MEALS BEDTIME SC ; Start 01/29/19 at 17:55 Sodium Chloride 1,000 ml @ 75 mls/hr [id number] IV Last administered on 01/29/19at 14:27; Admin Dose 75 MLS/HR; Start 01/29/19 at 13:30 Miscellaneous Information 1 ea NOTE XX ; Start 01/29/19 at 13:30 Glucose (Glutose) 15 gm Q15M PRN PO DECREASED GLUCOSE; Start 01/29/19 at 13:30 Glucose (Glutose) 22.5 gm Q15M PRN PO DECREASED GLUCOSE; Start 01/29/19 at 13:30 Dextrose (D50w Syringe) 25 ml Q15M PRN IV DECREASED GLUCOSE; Start 01/29/19 at 13:30 Dextrose (D50w Syringe) 50 ml Q15M PRN IV DECREASED GLUCOSE; Start 01/29/19 at 13:30 Glucagon (Glucagen) 1 mg Q15M PRN IM DECREASED GLUCOSE; Start 01/29/19 at 13:30 Glucose (Glutose) 15 gm Q15M PRN BUCCAL DECREASED GLUCOSE; Start 01/29/19 at 13:30 Metoclopramide HCl (Reglan) 5 mg AC BREAKFAST DINNER PO ; Start 01/29/19 at 17:25 Ondansetron HCl (Zofran Inj) 4 mg Q4H PRN IV NAUSEA AND/OR VOMITING; Start 01/29/19 at 14:00 Pantoprazole (Protonix Tab) 40 mg BID@06,18 PO ; Start 01/29/19 at 18:00 Atorvastatin Calcium (Lipitor) 40 mg HS PO ; Start 01/29/19 at 21:00 Amlodipine Besylate (Norvasc) 5 mg BID PO ; Start 01/29/19 at 21:00 Metoprolol Succinate (Toprol Xl) 50 mg BID PO ; Start 01/29/19 at 21:00 Allergies: Coded Allergies: No Known Allergy (Unverified , 01/29/19) Past Surgical History Past Surgical Hx: other (toe amp, R forearm ORIF) Family History Significant Family History: no pertinent family hx Social History 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 ago) Drug Use: none Exam/Review of Systems Vital Signs Vitals Vital Signs Date Temp Pulse Resp B/P (MAP) Pulse Ox O2 O2 Flow FiO2 Time Delivery Rate 01/29/19 98.0 78 22 96 Room Air 15:13 01/29/19 2 08:35 Exam Constitutional: alert, oriented (No apparent distress, no dyspnea with speaking, family at bedside) Head: normocephalic Respiratory: other (Coarse breath sounds bilaterally, no wheezing) Cardiovascular: regular rate and rhythm, systolic murmur (S1-S2 heard) Gastrointestinal: soft, non-tender, bowel sounds Extremities: other (No significant edema) Labs Result Diagram: 01/29/19 0834 01/29/19 0834 Results 24hrs Laboratory Tests Test 01/29/19 08:33 01/29/19 08:34 01/29/19 12:50 Prothrombin Time 13.7 Prothrombin Time Ratio 1.1 INR International Normalized Ratio 1.04 Activated Partial Thromboplast Time 40.0 H White Blood Count 7.9 Red Blood Count 3.79 L Hemoglobin 11.5 L Hematocrit 33.6 L Mean Corpuscular Volume 88.7 Mean Corpuscular Hemoglobin 30.3 Mean Corpuscular Hemoglobin Concent 34.2 Red Cell Distribution Width 12.1 Platelet Count 386 Mean Platelet Volume 9.6 Immature Granulocytes % 1.000 H Neutrophils % 67.1 Lymphocytes % 19.2 Monocytes % 8.0 Eosinophils % 4.1 Basophils % 0.6 Nucleated Red Blood Cells % 0.0 Immature Granulocytes # 0.080 H Neutrophils # 5.3 Lymphocytes # 1.5 Monocytes # 0.6 Eosinophils # 0.3 Basophils # 0.1 Nucleated Red Blood Cells # 0.0 Sodium Level 138 Potassium Level 4.8 Chloride Level 106 Carbon Dioxide Level 22 Anion Gap 10 Blood Urea Nitrogen 42 H Creatinine 3.25 H Est Glomerular Filtrat Rate mL/min 19 L Glucose Level 179 Calcium Level 9.5 Total Bilirubin 0.4 Direct Bilirubin 0.00 Indirect Bilirubin 0.4 Aspartate Amino Transf (AST/SGOT) 15 Alanine Aminotransferase (ALT/SGPT) < 6 L Alkaline Phosphatase 95 Creatine Kinase 58 Creatine Kinase Index 1.7 Creatinine Kinase MB (Mass) 0.96 Troponin I 0.370 *H B-Type Natriuretic Peptide 2650 H Total Protein 7.6 Albumin 3.8 Globulin 3.80 H Albumin/Globulin Ratio 1.00 Lipase 97 Bedside Glucose 99 Imaging Imaging ECG sinus rhythm, normal QRS duration, nonspecific ST abnormalities Medications Medications Current Medications Atorvastatin Calcium (Lipitor) 40 mg QHS PO ; Start 01/29/19 at 21:00 Ergocalciferol (Drisdol) 50,000 unit We@0900 PO ; Start 02/04/19 at 09:00 Glycopyrrolate (Robinul) 1 mg BID PO Last administered on 01/29/19at 14:24; Admin Dose 1 MG; Start 01/29/19 at 13:00 Ranitidine HCl (Zantac) 150 mg Q12 PO ; Start 01/29/19 at 21:00 Miscellaneous Information 1.5 mg Q SUN SQ ; Start 01/29/19 at 13:00; Status UNV IV Flush (NS 3 ml) 3 ml PER PROTOCOL IV ; Start 01/29/19 at 13:30 Acetaminophen (Tylenol Tab) 650 mg Q6H PRN PO .PAIN 1-3 OR TEMP; Start 01/29/19 at 13:30 Heparin Sodium (Porcine) (Heparin (5000 Units/1ml)) 5,000 unit Q12 SC ; Start 01/29/19 at 21:00 Insulin Aspart (Novolog Insulin Pen) NOVOLOG *MILD* ALGORITHM WITH MEALS BEDTIME SC ; Start 01/29/19 at 17:55 Sodium Chloride 1,000 ml @ 75 mls/hr [id number] IV Last administered on 01/29/19at 14:27; Admin Dose 75 MLS/HR; Start 01/29/19 at 13:30 Miscellaneous Information 1 ea NOTE XX ; Start 01/29/19 at 13:30 Glucose (Glutose) 15 gm Q15M PRN PO DECREASED GLUCOSE; Start 01/29/19 at 13:30 Glucose (Glutose) 22.5 gm Q15M PRN PO DECREASED GLUCOSE; Start 01/29/19 at 13:30 Dextrose (D50w Syringe) 25 ml Q15M PRN IV DECREASED GLUCOSE; Start 01/29/19 at 13:30 Dextrose (D50w Syringe) 50 ml Q15M PRN IV DECREASED GLUCOSE; Start 01/29/19 at 13:30 Glucagon (Glucagen) 1 mg Q15M PRN IM DECREASED GLUCOSE; Start 01/29/19 at 13:30 Glucose (Glutose) 15 gm Q15M PRN BUCCAL DECREASED GLUCOSE; Start 01/29/19 at 13:30 Metoclopramide HCl (Reglan) 5 mg AC BREAKFAST DINNER PO ; Start 01/29/19 at 17:25 Ondansetron HCl (Zofran Inj) 4 mg Q4H PRN IV NAUSEA AND/OR VOMITING; Start 01/29/19 at 14:00 Pantoprazole (Protonix Tab) 40 mg BID@06,18 PO ; Start 01/29/19 at 18:00 Atorvastatin Calcium (Lipitor) 40 mg HS PO ; Start 01/29/19 at 21:00 Amlodipine Besylate (Norvasc) 5 mg BID PO ; Start 01/29/19 at 21:00 Metoprolol Succinate (Toprol Xl) 50 mg BID PO ; Start 01/29/19 at 21:00 Michele Richard DO January 29, 2019 16:04
[2019-01-29] MEDS ORDERED: hydrALAzine 20 MG INJ IV PRN ×2 (16:30→19:00)
[2019-01-29] MEDS: INSULIN ASPART [NOVOLOG] 3 ML PEN SC SCH ×2 (17:02→21:00)
[2019-01-29] MEDS: PANTOPRAZOLE (EC) 40 MG TAB PO SCH (17:32)
[2019-01-29] MEDS: METOCLOPRAMIDE 5 MG TAB PO SCH (17:32)
[2019-01-29] MEDS ORDERED: hydrALAzine 20 MG INJ IV ONE (19:00)
--- NOTE | 2019-01-29 19:42 | CONS ---
DATE OF ADMISSION: 01/29/2019 DATE OF CONSULTATION: 01/29/2019 Thank you very much for allowing me to evaluate this 68-year-old male admitted to the hospital with n ausea, increased salivation, reduced appetite, known chronic renal insufficiency and elevated troponi n. HISTORICAL EVENTS: As you well know, this patient was admitted via the ER when he presented with dif ficulty swallowing with the accumulation of marked saliva in his mouth, inability to eat "normally" f or the last several days, dry heaving and nausea. Accompanying the latter was an elevated troponin a nd because of this, hospitalization was thought needed. It was noted that his renal function had mil dly worsened in addition. Closer questioning reveals no substernal chest pain, orthopnea, PND, radia ting neck, arm or jaw discomfort. He denies any abdominal pain. He has no symptoms of GI bleeding. Denies dysuria, hematuria, difficulty starting his urinary stream. He also complains of significant cramping involving the right leg when attempting to walk. PAST MEDICAL HISTORY: Includes: 1. Known chronic renal insufficiency with baseline creatinine ranging between 2.7 and 3. I evaluate d him in October of this year, at which time on 11/10/2018, his creatinine was 2.96, both renal ultr asound and postvoid bladder ultrasound revealed no abnormalities. His protein to creatinine ratio wa s 7.55, all consistent with diabetic glomerulosclerosis. 2. Hypertension. 3. History of diabetes. 4. Prior toe amputations and evidence of vascular disease with reduced blood flow to the left lower extremity. 5. Hyperlipidemia. MEDICATIONS: Prior to admission: 1. Amlodipine 5 mg per day. 2. Atorvastatin 40 per day. 3. Ergocalciferol 50,000 units a week. 4. Robinul 1 mg b.i.d. 5. Toprol 100 mg per day. 6. Zantac 150 q.12. 7. Heparin 5000 units q.12. ALLERGIES: NONE. FAMILY HISTORY: Positive for pharyngeal cancer, peptic ulcer disease and diabetes. SOCIAL HISTORY: Former smoker, history of prior large quantity alcohol intake. PHYSICAL EXAMINATION: VITAL SIGNS: BP 178/76, pulse was 100, respirations were 18. He was afebrile. EYES: Extraocular muscles were full. NOSE, MOUTH, AND THROAT: Normal. NECK: Supple. There was no jugular venous distention, thyroid enlargement or adenopathy. Carotids 2+, no bruits. LUNGS: Clear. HEART: Rhythm regular, no murmur. No third or fourth sound. ABDOMEN: Nontender. Liver and spleen were not palpable. No mass or tenderness were noted. EXTREMITIES: No edema. Reduced pulses involving the left lower extremity. Popliteal and dorsalis p aylin were present on the right. LABORATORY AND DIAGNOSTIC STUDIES: Hematocrit 33.6, white count was normal, and platelet count was n ormal on admission. Sodium 138, potassium 4.8, chloride 106, CO2 22, BUN 42, creatinine 3.25. Tropo taylor was 0.375. IMPRESSION: 1. Known chronic renal insufficiency secondary to diabetic glomerulosclerosis with now acute renal f ailure, mild, secondary to volume contraction. 2. Increased salivation, nausea and reduced appetite. Suggest possible reflux and/or peptic ulcer d isease. Doubt atypical presentation of coronary insufficiency. 3. By exam, reduced blood flow to the left lower extremity, although he is symptomatic involving the right, you are obtaining vascular eval. 4. Diabetes of longstanding duration, on insulin. Volume expansion has already been started with is otonic saline. We will follow with you. Dictated By: DOT ASHLEY MD MR/VIOLET Conf#: [id number] DID#: [id number] CC: JOSE PARRY MD;*End*
[2019-01-29] MEDS ORDERED: ATORVASTATIN 40 MG TAB PO SCH (21:00)
[2019-01-29] MEDS: ATORVASTATIN 40 MG TAB PO SCH (21:06)
[2019-01-29] MEDS: AMLODIPINE 5 MG TAB PO SCH (21:07)
[2019-01-29] MEDS: HEPARIN 5,000 UNIT/1 ML VIAL SC SCH (21:09)
[2019-01-29] MEDS: RANITIDINE 150 MG TAB PO SCH (21:11)
[2019-01-30] VITALS (11 sets, daily range): BP systolic 102–162; BP diastolic 55–86; PULSE 72–80; RESP 18–22
[2019-01-30] MEDS: SOD CHLORIDE 0.9% 1,000 ML IV SCH ×2 (02:50→20:57)
[2019-01-30] MEDS: PANTOPRAZOLE (EC) 40 MG TAB PO SCH ×2 (06:35→17:25)
[2019-01-30] MEDS: INSULIN ASPART [NOVOLOG] 3 ML PEN SC SCH ×4 (07:55→21:00)
[2019-01-30] MEDS: METOCLOPRAMIDE 5 MG TAB PO SCH ×2 (07:59→17:24)
--- NOTE | 2019-01-30 08:23 | CONS ---
Assessment/Plan Assessment/Plan Assessment/Plan 1. Mild acute renal failure prob sec to ATN (marked fluctuations in BP), will still gently vol expand. 2. Increased proteinuria despite reduced gfr is curious, still prob sec to diabetic glomerulosclerosis but will pursue other causes. 3. Path gi sxs improved, modify protonix and H2 jillian, consider endoscopy. 4. BP controlled, cardiol comments reviewed. 5. Vasc studies noted, will need vascular follow up. Consultation Date/Type/Reason Admit Date/Time January 29, 2019 at 10:16 Type of Consult Nephrology Date/Time of Note DATE: 01/30/19 TIME: 08:16 Respiratory: No cough, No shortness of breath Cardiovascular: No no complaints, No chest pain Gastrointestinal: other ("increased saliva" is now better); No pain, No decreased appetite, No vomiting Genitourinary: no complaints Musculoskeletal: no complaints Exam/Review of Systems Vital Signs Vitals Vital Signs Date Temp Pulse Resp B/P (MAP) Pulse Ox O2 O2 Flow FiO2 Time Delivery Rate 01/30/19 76 08:04 01/30/19 98.4 22 129/86 96 Nasal 07:32 (100) Cannula 01/30/19 2.0 04:30 Intake and Output 01/29/19 01/29/19 01/30/19 1515:00 23:00 07:00 IntakeIntake Total 620 ml 400 ml BalanceBalance 620 ml 400 ml Exam Neck: No jvd Respiratory: clear to auscultation Cardiovascular: regular rate and rhythm Gastrointestinal: soft Extremities: No edema Labs Result Diagram: 01/30/19 0549 01/30/19 0549 Results 24hrs Laboratory Tests Test 01/29/19 08:33 01/29/19 08:34 01/29/19 12:50 01/29/19 15:29 Prothrombin Time 13.7 Prothrombin Time 1.1 Ratio INR International 1.04 Normalized Ratio Activated 40.0 H Partial Thromboplast Time White Blood Count 7.9 Red Blood Count 3.79 L Hemoglobin 11.5 L Hematocrit 33.6 L Mean Corpuscular 88.7 Volume Mean Corpuscular 30.3 Hemoglobin Mean Corpuscular 34.2 Hemoglobin Concent Red Cell 12.1 Distribution Width Platelet Count 386 Mean Platelet Volume 9.6 Immature 1.000 H Granulocytes % Neutrophils % 67.1 Lymphocytes % 19.2 Monocytes % 8.0 Eosinophils % 4.1 Basophils % 0.6 Nucleated Red Blood 0.0 Cells % Immature 0.080 H Granulocytes # Neutrophils # 5.3 Lymphocytes # 1.5 Monocytes # 0.6 Eosinophils # 0.3 Basophils # 0.1 Nucleated Red Blood 0.0 Cells # Sodium Level 138 Potassium Level 4.8 Chloride Level 106 Carbon Dioxide Level 22 Anion Gap 10 Blood Urea Nitrogen 42 H Creatinine 3.25 H Est Glomerular 19 L Filtrat Rate mL/min Glucose Level 179 Calcium Level 9.5 Total Bilirubin 0.4 Direct Bilirubin 0.00 Indirect Bilirubin 0.4 Aspartate Amino 15 Transf (AST/SGOT) Alanine < 6 L Aminotransferase (AL T/SGPT) Alkaline Phosphatase 95 Creatine Kinase 58 50 Creatine Kinase 1.7 1.7 Index Creatinine Kinase MB 0.96 0.84 (Mass) Troponin I 0.370 *H 0.263 *H B-Type Natriuretic 2650 H Peptide Total Protein 7.6 Albumin 3.8 Globulin 3.80 H Albumin/Globulin 1.00 Ratio Lipase 97 Bedside Glucose 99 Test 01/29/19 16:30 01/29/19 17:01 01/29/19 21:05 01/30/19 05:49 Urine Color STRAW Urine Clarity CLEAR Urine pH 7.0 Urine Specific 1.010 [place] Urine Ketones NEGATIVE Urine Nitrite NEGATIVE Urine Bilirubin NEGATIVE Urine Urobilinogen NEGATIVE Urine Leukocyte NEGATIVE Esterase Urine Microscopic 11 H RBC Urine Microscopic 1 WBC Urine Hemoglobin NEGATIVE Urine Random 35.44 Creatinine Urine 15.63 Protein/Creatinine Ratio Urine Glucose 1+ H Urine Total Protein 554.0 H Bedside Glucose 118 146 White Blood Count 7.3 Red Blood Count 3.22 L Hemoglobin 9.8 L Hematocrit 29.2 L Mean Corpuscular 90.7 Volume Mean Corpuscular 30.4 Hemoglobin Mean Corpuscular 33.6 Hemoglobin Concent Red Cell 12.2 Distribution Width Platelet Count 329 Mean Platelet Volume 9.6 Immature 0.800 H Granulocytes % Neutrophils % 56.5 Lymphocytes % 25.2 Monocytes % 10.6 Eosinophils % 6.3 Basophils % 0.6 Nucleated Red Blood 0.0 Cells % Immature 0.060 H Granulocytes # Neutrophils # 4.1 Lymphocytes # 1.8 Monocytes # 0.8 Eosinophils # 0.5 Basophils # 0.0 Nucleated Red Blood 0.0 Cells # Sodium Level 137 Potassium Level 5.4 H Chloride Level 110 Carbon Dioxide Level 23 Anion Gap 4 L Blood Urea Nitrogen 50 H Creatinine 3.57 H Est Glomerular 17 L Filtrat Rate mL/min Glucose Level 95 # Hemoglobin A1c 6.0 H Calcium Level 8.6 Phosphorus Level 5.7 H Magnesium Level 2.4 Total Bilirubin 0.2 Direct Bilirubin 0.00 Indirect Bilirubin 0.2 Aspartate Amino 13 L Transf (AST/SGOT) Alanine 14 Aminotransferase (AL T/SGPT) Alkaline Phosphatase 77 Total Protein 6.1 # Albumin 2.9 L Globulin 3.20 Albumin/Globulin 0.90 Ratio Test 01/30/19 07:58 Bedside Glucose 94 Medications Medications Current Medications Ergocalciferol (Drisdol) 50,000 unit We@0900 PO ; Start 02/04/19 at 09:00 Glycopyrrolate (Robinul) 1 mg BID PO Last administered on 01/29/19at 21:06; Admin Dose 1 MG; Start 01/29/19 at 13:00 Ranitidine HCl (Zantac) 150 mg Q12 PO Last administered on 01/29/19at 21:11; Ad min Dose 150 MG; Start 01/29/19 at 21:00 Miscellaneous Information 1.5 mg Q SUN SQ ; Start 01/29/19 at 13:00; Status UNV IV Flush (NS 3 ml) 3 ml PER PROTOCOL IV ; Start 01/29/19 at 13:30 Acetaminophen (Tylenol Tab) 650 mg Q6H PRN PO .PAIN 1-3 OR TEMP; Start 01/29/19 at 13:30 Heparin Sodium (Porcine) (Heparin (5000 Units/1ml)) 5,000 unit Q12 SC Last administered on 01/29/19at 21:09; Admin Dose 5,000 UNIT; Start 01/29/19 at 21:00 Insulin Aspart (Novolog Insulin Pen) NOVOLOG *MILD* ALGORITHM WITH MEALS BEDTIME SC ; Start 01/29/19 at 17:55 Sodium Chloride 1,000 ml @ 75 mls/hr [id number] IV Last administered on 01/29/19at 14:27; Admin Dose 75 MLS/HR; Start 01/29/19 at 13:30 Miscellaneous Information 1 ea NOTE XX ; Start 01/29/19 at 13:30 Glucose (Glutose) 15 gm Q15M PRN PO DECREASED GLUCOSE; Start 01/29/19 at 13:30 Glucose (Glutose) 22.5 gm Q15M PRN PO DECREASED GLUCOSE; Start 01/29/19 at 13:30 Dextrose (D50w Syringe) 25 ml Q15M PRN IV DECREASED GLUCOSE; Start 01/29/19 at 13:30 Dextrose (D50w Syringe) 50 ml Q15M PRN IV DECREASED GLUCOSE; Start 01/29/19 at 13:30 Glucagon (Glucagen) 1 mg Q15M PRN IM DECREASED GLUCOSE; Start 01/29/19 at 13:30 Glucose (Glutose) 15 gm Q15M PRN BUCCAL DECREASED GLUCOSE; Start 01/29/19 at 13:30 Metoclopramide HCl (Reglan) 5 mg AC BREAKFAST DINNER PO Last administered on 01/30/19at 07:59; Admin Dose 5 MG; Start 01/29/19 at 17:25 Ondansetron HCl (Zofran Inj) 4 mg Q4H PRN IV NAUSEA AND/OR VOMITING; Start 01/29/19 at 14:00 Pantoprazole (Protonix Tab) 40 mg BID@,18 PO Last administered on 01/30/19at 06:35; Admin Dose 40 MG; Start 01/29/19 at 18:00 Atorvastatin Calcium (Lipitor) 40 mg HS PO Last administered on 01/29/19at 21:06; Admin Dose 40 MG; Start 01/29/19 at 21:00 Amlodipine Besylate (Norvasc) 5 mg BID PO Last administered on 01/29/19at 21:07; Admin Dose 5 MG; Start 01/29/19 at 21:00 Carvedilol (Coreg) 6.25 mg BID PO Last administered on 01/29/19at 21:07; Admin Dose 6.25 MG; Start 01/29/19 at 21:00 Aspirin (Aspirin) 81 mg DAILY PO ; Start 01/30/19 at 09:00 Hydralazine HCl (Apresoline) 20 mg Q6 PRN IV SBP>170; Start 01/29/19 at 19:00 DOT ASHLEY MD January 30, 2019 08:23
[2019-01-30] MEDS: RANITIDINE 150 MG TAB PO SCH ×2 (08:25→20:57)
[2019-01-30] MEDS: ASPIRIN 81 MG TAB PO SCH (08:25)
[2019-01-30] MEDS: GLYCOPYRROLATE 1 MG TAB PO SCH ×2 (08:25→20:57)
[2019-01-30] MEDS: AMLODIPINE 5 MG TAB PO SCH ×2 (08:25→20:57)
[2019-01-30] MEDS: HEPARIN 5,000 UNIT/1 ML VIAL SC SCH ×2 (08:40→21:05)
--- NOTE | 2019-01-30 11:56 | CONS ---
Assessment/Plan Assessment/Plan Hospital Course (Demo Recall) Hypertension urgency-resolved Mildly elevated troponin-trending down Acute kidney injury with history of chronic kidney disease Preserved left ventricular ejection fraction Mitral, aortic and tricuspid valve regurgitation Diabetes Peripheral arterial disease Patient presented with symptoms of increased saliva production over the past few months and incidentally found to have elevated blood pressure and elevated troponin. Blood pressure in the emergency was above 190 systolic and on the t elemetry floor systolic 216. Denies any symptoms of chest pain or shortness of breath. Elevated troponin likely secondary to hypertension urgency as well as poor renal function/clearance, and troponins are trending down Echocardiogram with preserved left ventricular ejection fraction. Blood pressure trend overall improved on current medication regimen. Patient required IV hydralazine only once yesterday. Continue aspirin and statin therapy if no contraindication No further inpatient cardiac work-up needed at the current time Consultation Date/Type/Reason Admit Date/Time January 29, 2019 at 10:16 Initial Consult Date Type of Consult Cardiology Date/Time of Note DATE: 01/30/19 TIME: 11:54 24 HR Interval Summary Free Text/Dictation Feels much better. Denies any symptoms of chest pain, shortness of breath or dizziness Exam/Review of Systems Vital Signs Vitals Vital Signs Date Temp Pulse Resp B/P (MAP) Pulse Ox O2 O2 Flow FiO2 Time Delivery Rate 01/30/19 98.0 76 22 132/64 96 Nasal 11:45 (86) Cannula 01/30/19 2.0 09:56 Intake and Output 01/29/19 01/29/19 01/30/19 1515:00 23:00 07:00 IntakeIntake Total 620 ml 400 ml BalanceBalance 620 ml 400 ml Exam Constitutional: alert, oriented (No apparent distress) Head: normocephalic Respiratory: other (Coarse breath sounds bilaterally, no wheezing) Cardiovascular: regular rate and rhythm (S1-S2 heard) Gastrointestinal: soft, non-tender, bowel sounds Extremities: edema (Trace) Labs Result Diagram: 01/30/19 0549 01/30/19 0549 Results 24hrs Laboratory Tests Test 01/29/19 12:50 01/29/19 15:29 01/29/19 16:30 01/29/19 17:01 Bedside Glucose 99 118 Creatine Kinase 50 Creatine Kinase 1.7 Index Creatinine Kinase MB 0.84 (Mass) Troponin I 0.263 *H Urine Color STRAW Urine Clarity CLEAR Urine pH 7.0 Urine Specific 1.010 [place] Urine Ketones NEGATIVE Urine Nitrite NEGATIVE Urine Bilirubin NEGATIVE Urine Urobilinogen NEGATIVE Urine Leukocyte NEGATIVE Esterase Urine Microscopic 11 H RBC Urine Microscopic 1 WBC Urine Hemoglobin NEGATIVE Urine Random 35.44 Creatinine Urine 15.63 Protein/Creatinine Ratio Urine Glucose 1+ H Urine Total Protein 554.0 H Test 01/29/19 21:05 01/30/19 05:49 01/30/19 07:58 Bedside Glucose 146 94 White Blood Count 7.3 Red Blood Count 3.22 L Hemoglobin 9.8 L Hematocrit 29.2 L Mean Corpuscular 90.7 Volume Mean Corpuscular 30.4 Hemoglobin Mean Corpuscular 33.6 Hemoglobin Concent Red Cell 12.2 Distribution Width Platelet Count 329 Mean Platelet Volume 9.6 Immature 0.800 H Granulocytes % Neutrophils % 56.5 Lymphocytes % 25.2 Monocytes % 10.6 Eosinophils % 6.3 Basophils % 0.6 Nucleated Red Blood 0.0 Cells % Immature 0.060 H Granulocytes # Neutrophils # 4.1 Lymphocytes # 1.8 Monocytes # 0.8 Eosinophils # 0.5 Basophils # 0.0 Nucleated Red Blood 0.0 Cells # Sodium Level 137 Potassium Level 5.4 H Chloride Level 110 Carbon Dioxide Level 23 Anion Gap 4 L Blood Urea Nitrogen 50 H Creatinine 3.57 H Est Glomerular 17 L Filtrat Rate mL/min Glucose Level 95 # Hemoglobin A1c 6.0 H Calcium Level 8.6 Phosphorus Level 5.7 H Magnesium Level 2.4 Total Bilirubin 0.2 Direct Bilirubin 0.00 Indirect Bilirubin 0.2 Aspartate Amino 13 L Transf (AST/SGOT) Alanine 14 Aminotransferase (AL T/SGPT) Alkaline Phosphatase 77 Total Protein 6.1 # Albumin 2.9 L Globulin 3.20 Albumin/Globulin 0.90 Ratio Medications Medications Current Medications Ergocalciferol (Drisdol) 50,000 unit We@0900 PO ; Start 02/04/19 at 09:00 Glycopyrrolate (Robinul) 1 mg BID PO Last administered on 01/30/19at 08:25; Admin Dose 1 MG; Start 01/29/19 at 13:00 Ranitidine HCl (Zantac) 150 mg Q12 PO Last administered on 01/30/19at 08:25; Admin Dose 150 MG; Start 01/29/19 at 21:00 Miscellaneous Information 1.5 mg Q SUN SQ ; Start 01/29/19 at 13:00; Status UNV IV Flush (NS 3 ml) 3 ml PER PROTOCOL IV ; Start 01/29/19 at 13:30 Acetaminophen (Tylenol Tab) 650 mg Q6H PRN PO .PAIN 1-3 OR TEMP; Start 01/29/19 at 13:30 Heparin Sodium (Porcine) (Heparin (5000 Units/1ml)) 5,000 unit Q12 SC Last administered on 01/30/19at 08:40; Admin Dose 5,000 UNIT; Start 01/29/19 at 21:00 Insulin Aspart (Novolog Insulin Pen) NOVOLOG *MILD* ALGORITHM WITH MEALS BEDTIME SC ; Start 01/29/19 at 17:55 Sodium Chloride 1,000 ml @ 50 mls/hr Q20H IV Last administered on 01/29/19at 14:27; Admin Dose 75 MLS/HR; Start 01/29/19 at 13:30 Miscellaneous Information 1 ea NOTE XX ; Start 01/29/19 at 13:30 Glucose (Glutose) 15 gm Q15M PRN PO DECREASED GLUCOSE; Start 01/29/19 at 13:30 Glucose (Glutose) 22.5 gm Q15M PRN PO DECREASED GLUCOSE; Start 01/29/19 at 13:30 Dextrose (D50w Syringe) 25 ml Q15M PRN IV DECREASED GLUCOSE; Start 01/29/19 at 13:30 Dextrose (D50w Syringe) 50 ml Q15M PRN IV DECREASED GLUCOSE; Start 01/29/19 at 13:30 Glucagon (Glucagen) 1 mg Q15M PRN IM DECREASED GLUCOSE; Start 01/29/19 at 13:30 Glucose (Glutose) 15 gm Q15M PRN BUCCAL DECREASED GLUCOSE; Start 01/29/19 at 13 :30 Metoclopramide HCl (Reglan) 5 mg AC BREAKFAST DINNER PO Last administered on 01/30/19at 07:59; Admin Dose 5 MG; Start 01/29/19 at 17:25 Ondansetron HCl (Zofran Inj) 4 mg Q4H PRN IV NAUSEA AND/OR VOMITING; Start 01/29/19 at 14:00 Pantoprazole (Protonix Tab) 40 mg BID@06,18 PO Last administered on 01/30/19at 06:35; Admin Dose 40 MG; Start 01/29/19 at 18:00 Atorvastatin Calcium (Lipitor) 40 mg HS PO Last administered on 01/29/19at 21:06; Admin Dose 40 MG; Start 01/29/19 at 21:00 Amlodipine Besylate (Norvasc) 5 mg BID PO Last administered on 01/30/19at 08:25; Admin Dose 5 MG; Start 01/29/19 at 21:00 Carvedilol (Coreg) 6.25 mg BID PO Last administered on 01/30/19at 08:25; Admin Dose 6.25 MG; Start 01/29/19 at 21:00 Aspirin (Aspirin) 81 mg DAILY PO Last administered on 01/30/19at 08:25; Admin Dose 81 MG; Start 01/30/19 at 09:00 Hydralazine HCl (Apresoline) 20 mg Q6 PRN IV SBP>170; Start 01/29/19 at 19:00 Michele Richard DO January 30, 2019 11:56
--- NOTE | 2019-01-30 14:30 | RADRPT ---
Vent Rate: 89 bpm RR Interval: 0 msec [place] Interval: 164 msec QRS Duration: 84 msec QT Interval: 366 msec QTC Interval: 445 msec P-R-T [place]: 77 - 80 - 92 degrees Normal sinus rhythm Normal ECG Electronically Signed By: [facility]
--- NOTE | 2019-01-30 15:09 | CONS ---
DATE OF ADMISSION: 01/29/2019 DATE OF CONSULTATION: 01/30/2019 TYPE OF CONSULTATION: Vascular. REFERRING PHYSICIAN: Michele Mtz MD REASON FOR CONSULTATION: Right calf fairly severe claudication. HISTORY OF PRESENT ILLNESS: This is a 68-year-old long-term diabetic gentleman. He has fairly sever e chronic kidney disease. Baseline creatinine is in the 3 to 4 range. He has a long history of doreen pheral arterial disease. I did a right popliteal angioplasty several years ago. He had gangrene of the foot. He ended up having an amputation of the 4th and 5th toes, remains well healed. I saw him back 3 or 4 months ago. He had surveillance arterial duplex study at that time and he had a severe s tenosis in the popliteal, recurrent stenosis. He was not symptomatic and I did actually talk to him about doing re-angioplasty of it, but his creatinine had bumped up to the 3 to 4 range and he was not symptomatic, so I decided not to proceed. He was admitted last few days ago basically with hyper-sa livation and maybe some chest pain, but mainly came in because he was salivating and coughing up mucu s and has strange current nonspecific complaints. He also told Dr. Mtz that he is having trouble walking. He says about 2 weeks ago he developed severe calf pain in the right leg which is acute in onset and fairly severe and constant. It has gone away. The calf pain is resolved at least at rest , but he now has about 1/2 block claudication. He is not able to walk any further than half a block. He has no rest pain in the foot. He has normal sensation. He has chronically decreased sensation, maybe a little bit of numbness. It is not clear if it is neuropathy or ischemia, but he can move al l the toes and he can feel it when you touch him. He has been evaluated while he is here for cardiac issues. Dr. Richard saw him and his blood pressure is better controlled. He has been cleared basica lly from a cardiac standpoint for any type of acute event. Dr. Ashley saw him and his kidney functio n is stable, although poor. PAST MEDICAL HISTORY: Significant for diabetes, hypertension, chronic kidney disease, peripheral art erial disease. He had bilateral foot surgeries. He had 1st toe amputated on the left and 4th and 5t h on the right. He has claudication on the right at 1/2 block much further distances. MEDICATIONS: Consist of: 1. Norvasc. 2. Lipitor. 3. Drisdol. 4. Robinul. 5. Toprol-XL. 6. Zantac. 7. Tylenol. 8. Subcutaneous heparin. 9. NovoLog. ALLERGIES: HE HAS NO KNOWN DRUG ALLERGIES. SOCIAL HISTORY: He is a former smoker. He quit about 25 years ago. He is a previous heavy drinker. He stopped many years ago. He is originally from [place]. 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 He is marri ed. His lives with him. He has 3 children. REVIEW OF SYSTEMS: He denies any chest pain or shortness of breath. No nausea, vomiting, diarrhea. His main complaint when he came in was hyper-salivation and coughing up mucus. It seems to have imp roved but not resolved. He also complains 1/2 block right calf claudication. No rest pain in the fo ot. PHYSICAL EXAMINATION: GENERAL: He is an elderly gentleman. He is in no acute distress. VITAL SIGNS: He has been afebrile. His blood pressure is 132/64, heart rate 76, respiratory rate is 22. He is 96% sat on 2-liter nasal cannula. PERIPHERAL VASCULAR: He has 2+ radial and carotid and brachial pulses bilaterally. LUNGS: Clear. HEART: Regular rate and rhythm. ABDOMEN: Soft, nontender, nondistended. EXTREMITIES: He has 2+ femoral pulses bilaterally. I cannot feel popliteal pulses in either lower e xtremity. There is no DP or PT pulse on the right. There is no palpable pedal pulse on the left eit her. The feet are cool, but they are not discolored or mottled. The amputation sites in both feet a re well healed. DIAGNOSTIC DATA: He had arterial and venous studies done when he came in. The venous study shows no DVT. Arterial study shows pretty severe ischemia in both lower extremities with the right popliteal artery occlusion and monophasic tibial flow on the left. The popliteal artery is very low velocity and transitions from biphasic to monophasic in the tibials, suggesting there is severe left distal SF A or popliteal stenosis or occlusion as well. When I last saw him several months ago, the right popl iteal artery had a severe stenosis, but it was not occluded, so he has gone on to occlude a right pop liteal artery since I last saw him. LABORATORY DATA: Again, his renal function is impaired. His creatinine is 3.6 today, but it has bee n between 3 and 4 over the last 6 months or so. IMPRESSION: Right leg severe claudication with recent popliteal artery occlusion. He does not have limb threatening ischemia at present although his claudication is fairly severe. He denies any rest pain and his previous amputation site remains well healed. I had a long talk with him. His kidney f unction is poor, so I recommended doing CO2 angiogram to see if there is something I can do percutane ously that might benefit him and if not, potentially might need a bypass. I discussed that with him. I have him scheduled for a CO2 angiogram first thing Saturday morning 7:30. It could be done as an o utpatient if he is discharged over the weekend. That is fine and I gave him my card and told him to come see him in the office on Saturday if goes home over the weekend. Dictated By: WALTER RICHTER/VIOLET Conf#: [id number] DID#: [id number] CC: MICHELE MTZ MD; DOT ASHLEY MD; MICHELE RICHARD DO;*[facility]*
--- NOTE | 2019-01-30 18:16 | PN ---
Date/Time of Note Date/Time of Note DATE: 01/30/19 TIME: 18:08 Assessment/Plan VTE Prophylaxis Risk score (from Ns)>0 risk: 3 SCD applied (from Ns): Yes Pharmacological prophylaxis: heparin Lines/Catheters IV Catheter Type [facility]from [facility] Saline Lock Assessment/Plan Problems: (1) Non-STEMI (non-ST elevated myocardial infarction) Status: Resolved Comment: Per cardiology, trop elevation due to hypertensive urgency w/ poor renal clearance. EF NL. No further cardiac intervention (2) Kidney injury Status: Acute Comment: Slightly worse today. Nephrology following. Gentle hydration. Try to optimize renal function before CO2 angiogram next week. Qualifiers: Encounter type: subsequent encounter Laterality: unspecified laterality Q ualified Codes: S37.009D - Unspecified injury of unspecified kidney, subsequent encounter (3) Essential (primary) hypertension Status: Chronic Comment: Controlled w/ med adjustment. BP now NL. Cont. amlodipine 5 mg bid, carvedilol 6.25 mg bid. Hydralazine prn and monitor BP. (4) Pain of right leg Status: Acute Comment: Per vascular surgery due to complete occlusion of R popliteal artery. (5) Peripheral vascular disease of lower extremity Status: Chronic Comment: Per vascular surgery, CO2 angiogram in 72 hours. May need further intervention. (6) Disturbance of salivary secretion Status: Chronic Comment: Improved w/ addition of reglan and protonix. (7) Chronic kidney disease, stage IV (severe) Status: Chronic Comment: Less than optimal. Defer to nephrology to attempt to return creatinine to pt.'s baseline. (8) Type 2 diabetes mellitus with diabetic peripheral angiopathy without gangrene Status: Chronic Comment: Excellent glycemic control. Cont. trulicity weekly. Qualifiers: Diabetes mellitus prison insulin use: without prison use Qualified Codes: E11.51 - Type 2 diabetes mellitus with diabetic peripheral angiopathy without gangrene (9) Hyperlipidemia Status: Chronic Comment: Cont. statin. Result Diagram: 01/30/19 0549 01/30/19 1250 Results 24hrs Laboratory Tests Test 01/29/19 21:05 01/30/19 05:49 01/30/19 07:58 01/30/19 11:58 Bedside Glucose 146 94 124 White Blood Count 7.3 Red Blood Count 3.22 L Hemoglobin 9.8 L Hematocrit 29.2 L Mean Corpuscular 90.7 Volume Mean Corpuscular 30.4 Hemoglobin Mean Corpuscular 33.6 Hemoglobin Concent Red Cell 12.2 Distribution Width Platelet Count 329 Mean Platelet Volume 9.6 Immature 0.800 H Granulocytes % Neutrophils % 56.5 Lymphocytes % 25.2 Monocytes % 10.6 Eosinophils % 6.3 Basophils % 0.6 Nucleated Red Blood 0.0 Cells % Immature 0.060 H Granulocytes # Neutrophils # 4.1 Lymphocytes # 1.8 Monocytes # 0.8 Eosinophils # 0.5 Basophils # 0.0 Nucleated Red Blood 0.0 Cells # Sodium Level 137 Potassium Level 5.4 H Chloride Level 110 Carbon Dioxide Level 23 Anion Gap 4 L Blood Urea Nitrogen 50 H Creatinine 3.57 H Est Glomerular 17 L Filtrat Rate mL/min Glucose Level 95 # Hemoglobin A1c 6.0 H Calcium Level 8.6 Phosphorus Level 5.7 H Magnesium Level 2.4 Total Bilirubin 0.2 Direct Bilirubin 0.00 Indirect Bilirubin 0.2 Aspartate Amino 13 L Transf (AST/SGOT) Alanine 14 Aminotransferase (AL T/SGPT) Alkaline Phosphatase 77 Total Protein 6.1 # Albumin 2.9 L Globulin 3.20 Albumin/Globulin 0.90 Ratio Test 01/30/19 12:50 01/30/19 17:18 01/30/19 17:27 Potassium Level 4.6 Urine Random Sodium 21 L Bedside Glucose 107 Subjective 24 Hr Interval Summary Constitutional: no complaints, improved (feels much better; able to sleep last night, able to eat today) ENT: No other (increased salivary production has stopped) Respiratory: no complaints Cardiovascular: no complaints Gastrointestinal: no complaints; No decreased appetite, No nausea, No vomiting Genitourinary: no complaints Musculoskeletal: bone/joint pain (RLE pain, managed) Neurologic: no complaints Exam/Review of Systems Exam Vitals VS - Last 72 Hours, by Label Date Temp Pulse Resp B/P (MAP) Pulse Ox O2 O2 Flow FiO2 Time Delivery Rate 01/30/19 80 16:11 01/30/19 98.6 79 20 119/57 96 Room Air 15:23 (77) 01/30/19 76 12:02 01/30/19 98.0 76 22 132/64 96 Nasal 11:45 (86) Cannula 01/30/19 Nasal 2.0 09:56 Cannula 01/30/19 76 08:04 01/30/19 98.4 78 22 129/86 96 Nasal 07:32 (100) Cannula 01/30/19 98.2 75 18 133/66 98 Nasal 2.0 04:30 (88) Cannula 01/30/19 73 04:00 01/30/19 75 00:00 01/30/19 98.5 72 18 102/55 98 00:00 (71) 01/29/19 97.5 79 20 149/66 100 20:00 (93) 01/29/19 80 20:00 01/29/19 Nasal 2.0 20:00 Cannula 01/29/19 78 182/86 19:00 (118) 01/29/19 76 16 176/85 Nasal 2.0 18:19 (115) Cannula 01/29/19 73 220/107 17:26 (144) 01/29/19 72 217/100 17:15 (139) 01/29/19 74 16:10 01/29/19 98.0 78 22 219/98 96 Room Air 15:13 (138) 01/29/19 85 12:03 01/29/19 97.8 88 18 198/95 96 Room Air 11:50 (129) 01/29/19 84 18 178/76 100 Room Air 10:51 (110) 01/29/19 Nasal 2 08:35 Cannula 01/29/19 97.5 89 17 196/118 99 08:08 (144) VS - Last 72 Hours, by Label Date Temp Pulse Resp B/P (MAP) Pulse Ox O2 O2 Flow FiO2 Time Delivery Rate 01/30/19 80 16:11 01/30/19 98.6 79 20 119/57 96 Room Air 15:23 (77) 01/30/19 76 12:02 01/30/19 98.0 76 22 132/64 96 Nasal 11:45 (86) Cannula 01/30/19 Nasal 2.0 09:56 Cannula 01/30/19 76 08:04 01/30/19 98.4 78 22 129/86 96 Nasal 07:32 (100) Cannula 01/30/19 98.2 75 18 133/66 98 Nasal 2.0 04:30 (88) Cannula 01/30/19 73 04:00 01/30/19 75 00:00 01/30/19 98.5 72 18 102/55 98 00:00 (71) 01/29/19 97.5 79 20 149/66 100 20:00 (93) 01/29/19 80 20:00 01/29/19 Nasal 2.0 20:00 Cannula 01/29/19 78 182/86 19:00 (118) 01/29/19 76 16 176/85 Nasal 2.0 18:19 (115) Cannula 01/29/19 73 220/107 17:26 (144) 01/29/19 72 217/100 17:15 (139) 01/29/19 74 16:10 01/29/19 98.0 78 22 219/98 96 Room Air 15:13 (138) 01/29/19 85 12:03 01/29/19 97.8 88 18 198/95 96 Room Air 11:50 (129) 01/29/19 84 18 178/76 100 Room Air 10:51 (110) 01/29/19 Nasal 2 08:35 Cannula 01/29/19 97.5 89 17 196/118 99 08:08 (144) Vital Signs Date Temp Pulse Resp B/P (MAP) Pulse Ox O2 O2 Flow FiO2 Time Delivery Rate 01/30/19 80 16:11 01/30/19 98.6 20 119/57 96 Room Air 15:23 (77) 01/30/19 2.0 09:56 Intake and Output 01/29/19 01/29/19 01/30/19 1414:59 22:59 06:59 IntakeIntake Total 620 ml 400 ml BalanceBalance 620 ml 400 ml Constitutional: alert, oriented, well developed Psych: no complaints, nl mood/affect Respiratory: clear to auscultation, normal air movement Cardiovascular: regular rate and rhythm; No edema, No murmurs/extra sounds, No rub Gastrointestinal: soft, nl liver, spleen, non-tender, bowel sounds; No mass, No rebound or guarding Musculoskeletal: nl extremities to inspection Extremities: No cyanosis, No clubbing, No edema Neurological: GOLF CADDIE II-XII intact, nl mental status, nl speech, nl strength Additional Comments Bedside Glucose - 72 Hours Test 01/29/19 12:50 01/29/19 17:01 01/29/19 21:05 01/30/19 07:58 Bedside 99 118 146 94 Glucose mg/dL (70-220) mg/dL (70-220) mg/dL (70-220) mg/dL (70-220) Test 01/30/19 11:58 01/30/19 17:27 Bedside 124 107 Glucose mg/dL (70-220) mg/dL (70-220) Results Results 24hrs Laboratory Tests Test 01/29/19 21:05 01/30/19 05:49 01/30/19 07:58 01/30/19 11:58 Bedside Glucose 146 94 124 White Blood Count 7.3 Red Blood Count 3.22 L Hemoglobin 9.8 L Hematocrit 29.2 L Mean Corpuscular 90.7 Volume Mean Corpuscular 30.4 Hemoglobin Mean Corpuscular 33.6 Hemoglobin Concent Red Cell 12.2 Distribution Width Platelet Count 329 Mean Platelet Volume 9.6 Immature 0.800 H Granulocytes % Neutrophils % 56.5 Lymphocytes % 25.2 Monocytes % 10.6 Eosinophils % 6.3 Basophils % 0.6 Nucleated Red Blood 0.0 Cells % Immature 0.060 H Granulocytes # Neutrophils # 4.1 Lymphocytes # 1.8 Monocytes # 0.8 Eosinophils # 0.5 Basophils # 0.0 Nucleated Red Blood 0.0 Cells # Sodium Level 137 Potassium Level 5.4 H Chloride Level 110 Carbon Dioxide Level 23 Anion Gap 4 L Blood Urea Nitrogen 50 H Creatinine 3.57 H Est Glomerular 17 L Filtrat Rate mL/min Glucose Level 95 # Hemoglobin A1c 6.0 H Calcium Level 8.6 Phosphorus Level 5.7 H Magnesium Level 2.4 Total Bilirubin 0.2 Direct Bilirubin 0.00 Indirect Bilirubin 0.2 Aspartate Amino 13 L Transf (AST/SGOT) Alanine 14 Aminotransferase (AL T/SGPT) Alkaline Phosphatase 77 Total Protein 6.1 # Albumin 2.9 L Globulin 3.20 Albumin/Globulin 0.90 Ratio Test 01/30/19 12:50 01/30/19 17:18 01/30/19 17:27 Potassium Level 4.6 Urine Random Sodium 21 L Bedside Glucose 107 Medications Medication Current Medications Ergocalciferol (Drisdol) 50,000 unit We@0900 PO ; Start 02/04/19 at 09:00 Glycopyrrolate (Robinul) 1 mg BID PO Last administered on 01/30/19at 08:25; Admin Dose 1 MG; Start 01/29/19 at 13:00 Ranitidine HCl (Zantac) 150 mg Q12 PO Last administered on 01/30/19at 08:25; Admin Dose 150 MG; Start 01/29/19 at 21:00 Miscellaneous Information 1.5 mg Q SUN SQ ; Start 01/29/19 at 13:00; Status UNV IV Flush (NS 3 ml) 3 ml PER PROTOCOL IV ; Start 01/29/19 at 13:30 Acetaminophen (Tylenol Tab) 650 mg Q6H PRN PO .PAIN 1-3 OR TEMP; Start 01/29/19 at 13:30 Heparin Sodium (Porcine) (Heparin (5000 Units/1ml)) 5,000 unit Q12 SC Last administered on 01/30/19at 08:40; Admin Dose 5,000 UNIT; Start 01/29/19 at 21:00 Insulin Aspart (Novolog Insulin Pen) NOVOLOG *MILD* ALGORITHM WITH MEALS BEDTIME SC ; Start 01/29/19 at 17:55 Sodium Chloride 1,000 ml @ 50 mls/hr Q20H IV Last administered on 01/29/19at 14:27; Admin Dose 75 MLS/HR; Start 01/29/19 at 13:30 Miscellaneous Information 1 ea NOTE XX ; Start 01/29/19 at 13:30 Glucose (Glutose) 15 gm Q15M PRN PO DECREASED GLUCOSE; Start 01/29/19 at 13:30 Glucose (Glutose) 22.5 gm Q15M PRN PO DECREASED GLUCOSE; Start 01/29/19 at 13:30 Dextrose (D50w Syringe) 25 ml Q15M PRN IV DECREASED GLUCOSE; Start 01/29/19 at 13:30 Dextrose (D50w Syringe) 50 ml Q15M PRN IV DECREASED GLUCOSE; Start 01/29/19 at 13:30 Glucagon (Glucagen) 1 mg Q15M PRN IM DECREASED GLUCOSE; Start 01/29/19 at 13:30 Glucose (Glutose) 15 gm Q15M PRN BUCCAL DECREASED GLUCOSE; Start 01/29/19 at 13:30 Metoclopramide HCl (Reglan) 5 mg AC BREAKFAST DINNER PO Last administered on 01/30/19at 17:24; Admin Dose 5 MG; Start 01/29/19 at 17:25 Ondansetron HCl (Zofran Inj) 4 mg Q4H PRN IV NAUSEA AND/OR VOMITING; Start 01/29/19 at 14:00 Pantoprazole (Protonix Tab) 40 mg BID@06,18 PO Last administered on 01/30/19 17:25; Admin Dose 40 MG; Start 01/29/19 at 18:00 Atorvastatin Calcium (Lipitor) 40 mg HS PO Last administered on 01/29/19at 21:06; Admin Dose 40 MG; Start 01/29/19 at 21:00 Amlodipine Besylate (Norvasc) 5 mg BID PO Last administered on 01/30/19 08:25; Admin Dose 5 MG; Start 01/29/19 at 21:00 Carvedilol (Coreg) 6.25 mg BID PO Last administered on 01/30/19 08:25; Admin Dose 6.25 MG; Start 01/29/19 at 21:00 Aspirin (Aspirin) 81 mg DAILY PO Last administered on 01/30/19 08:25; Admin Dose 81 MG; Start 01/30/19 at 09:00 Hydralazine HCl (Apresoline) 20 mg Q6 PRN IV SBP>170; Start 01/29/19 at 19:00 JOSE PARRY MD January 30, 2019 18:16
[2019-01-30] MEDS: [UNRECOGNIZED DRUG - OTHER] XX SCH (19:00)
[2019-01-30] MEDS: ATORVASTATIN 40 MG TAB PO SCH (20:57)
[2019-01-31] VITALS (10 sets, daily range): BP systolic 122–160; BP diastolic 59–87; PULSE 72–102; RESP 18–20
[2019-01-31] MEDS: [UNRECOGNIZED DRUG - OTHER] XX SCH ×3 (03:00→18:05)
[2019-01-31] MEDS: PANTOPRAZOLE (EC) 40 MG TAB PO SCH (05:52)
[2019-01-31] MEDS: INSULIN ASPART [NOVOLOG] 3 ML PEN SC SCH ×4 (07:55→21:00)
[2019-01-31] MEDS: ASPIRIN 81 MG TAB PO SCH (09:17)
[2019-01-31] MEDS: GLYCOPYRROLATE 1 MG TAB PO SCH ×2 (09:17→21:18)
[2019-01-31] MEDS: AMLODIPINE 5 MG TAB PO SCH (09:18)
[2019-01-31] MEDS: RANITIDINE 150 MG TAB PO SCH ×2 (09:19→21:18)
[2019-01-31] MEDS: METOCLOPRAMIDE 5 MG TAB PO SCH ×2 (09:20→18:00)
[2019-01-31] MEDS: HEPARIN 5,000 UNIT/1 ML VIAL SC SCH ×2 (09:31→21:25)
--- NOTE | 2019-01-31 10:06 | PN ---
Date/Time of Note Date/Time of Note DATE: 01/31/19 TIME: 10:03 Assessment/Plan VTE Prophylaxis Risk score (from Nsg)>0 risk: 3 SCD applied (from Ns): Yes SCD contraindicated: low risk/ambulating Pharmacological prophylaxis: heparin Lines/Catheters IV Catheter Type (from Nrsg): Saline Lock Assessment/Plan Problems: (1) Peripheral vascular disease of lower extremity Status: Chronic Comment: Patient will be taken for angiography in approximately 48 hours. We will do our best to get a medically optimized (2) Disturbance of salivary secretion Status: Chronic Comment: Improved. This is most likely to been a variant presentation of nausea. 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 I will check a postvoid residual to make sure there is not a contribution of obstructive uropathy. 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 Result Diagram: 01/31/19 0739 01/31/19 0740 Results 24hrs Laboratory Tests Test 01/30/19 11:58 01/30/19 12:50 01/30/19 17:18 01/30/19 17:27 Bedside Glucose 124 107 Potassium Level 4.6 Urine Random Sodium 21 L Test 01/30/19 20:55 01/31/19 07:38 01/31/19 07:39 01/31/19 07:40 Bedside Glucose 113 92 White Blood Count 6.9 Red Blood Count 3.11 L Hemoglobin 9.4 L Hematocrit 27.8 L Mean Corpuscular 89.4 Volume Mean Corpuscular 30.2 Hemoglobin Mean Corpuscular 33.8 Hemoglobin Concent Red Cell 12.3 Distribution Width Platelet Count 332 Mean Platelet Volume 9.8 Immature 0.600 H Granulocytes % Neutrophils % 55.7 Lymphocytes % 28.3 Monocytes % 8.0 Eosinophils % 6.4 Basophils % 1.0 Nucleated Red Blood 0.0 Cells % Immature 0.040 H Granulocytes # Neutrophils # 3.9 Lymphocytes # 2.0 Monocytes # 0.6 Eosinophils # 0.4 Basophils # 0.1 Nucleated Red Blood 0.0 Cells # Iron Level 98 Total Iron Binding 222 L Capacity Percent Iron 44 Saturation Sodium Level 136 Potassium Level 4.7 Chloride Level 111 H Carbon Dioxide Level 22 Anion Gap 3 L Blood Urea Nitrogen 50 H Creatinine 3.89 H Est Glomerular 15 L Filtrat Rate mL/min Glucose Level 90 Calcium Level 8.4 Phosphorus Level 5.0 H Magnesium Level 2.4 Ferritin 47.2 Vitamin B12 Level 675 Test 01/31/19 07:42 Complement C3 88 Complement C4 33 Subjective 24 Hr Interval Summary Free Text/Dictation She reports that the hypersalivation symptoms have stopped. He reports he is getting some right leg pain but only if he ambulates. Constitutional: no complaints ENT: other (Excess elevation is discontinued) Respiratory: no complaints Cardiovascular: no complaints Gastrointestinal: no complaints Genitourinary: no complaints Exam/Review of Systems Exam Vitals Vital Signs Date Temp Pulse Resp B/P (MAP) Pulse Ox O2 O2 Flow FiO2 Time Delivery Rate 01/31/19 82 08:08 01/31/19 98.1 19 160/70 100 07:31 (100) 01/30/19 Nasal 20:00 Cannula 01/30/19 2.0 09:56 Intake and Output 01/30/19 01/30/19 01/31/19 1515:00 23:00 07:00 IntakeIntake Total 900 ml 980 ml BalanceBalance 900 ml 980 ml Constitutional: alert, oriented Neck: supple, non-tender Respiratory: clear to auscultation, normal air movement Cardiovascular: regular rate and rhythm, nl pulses Results Results 24hrs Laboratory Tests Test 01/30/19 11:58 01/30/19 12:50 01/30/19 17:18 01/30/19 17:27 Bedside Glucose 124 107 Potassium Level 4.6 Urine Random Sodium 21 L Test 01/30/19 20:55 01/31/19 07:38 01/31/19 07:39 01/31/19 07:40 Bedside Glucose 113 92 White Blood Count 6.9 Red Blood Count 3.11 L Hemoglobin 9.4 L Hematocrit 27.8 L Mean Corpuscular 89.4 Volume Mean Corpuscular 30.2 Hemoglobin Mean Corpuscular 33.8 Hemoglobin Concent Red Cell 12.3 Distribution Width Platelet Count 332 Mean Platelet Volume 9.8 Immature 0.600 H Granulocytes % Neutrophils % 55.7 Lymphocytes % 28.3 Monocytes % 8.0 Eosinophils % 6.4 Basophils % 1.0 Nucleated Red Blood 0.0 Cells % Immature 0.040 H Granulocytes # Neutrophils # 3.9 Lymphocytes # 2.0 Monocytes # 0.6 Eosinophils # 0.4 Basophils # 0.1 Nucleated Red Blood 0.0 Cells # Iron Level 98 Total Iron Binding 222 L Capacity Percent Iron 44 Saturation Sodium Level 136 Potassium Level 4.7 Chloride Level 111 H Carbon Dioxide Level 22 Anion Gap 3 L Blood Urea Nitrogen 50 H Creatinine 3.89 H Est Glomerular 15 L Filtrat Rate mL/min Glucose Level 90 Calcium Level 8.4 Phosphorus Level 5.0 H Magnesium Level 2.4 Ferritin 47.2 Vitamin B12 Level 675 Test 01/31/19 07:42 Complement C3 88 Complement C4 33 Medications Medication Current Medications Ergocalciferol (Drisdol) 50,000 unit We@0900 PO ; Start 02/04/19 at 09:00 Glycopyrrolate (Robinul) 1 mg BID PO Last administered on 01/31/19at 09:17; Admin Dose 1 MG; Start 01/29/19 at 13:00 Ranitidine HCl (Zantac) 150 mg Q12 PO Last administered on 01/31/19at 09:19; Admin Dose 150 MG; Start 01/29/19 at 21:00 Miscellaneous Information 1.5 mg Q SUN SQ ; Start 01/29/19 at 13:00; Status UNV IV Flush (NS 3 ml) 3 ml PER PROTOCOL IV ; Start 01/29/19 at 13:30 Acetaminophen (Tylenol Tab) 650 mg Q6H PRN PO .PAIN 1-3 OR TEMP; Start 01/29/19 at 13:30 Heparin Sodium (Porcine) (Heparin (5000 Units/1ml)) 5,000 unit Q12 SC Last administered on 01/31/19at 09:31; Admin Dose 5,000 UNIT; Start 01/29/19 at 21:00 Insulin Aspart (Novolog Insulin Pen) NOVOLOG *MILD* ALGORITHM WITH MEALS BEDTIME SC ; Start 01/29/19 at 17:55 Sodium Chloride 1,000 ml @ 50 mls/hr Q20H IV Last administered on 01/30/19at 20:57; Admin Dose 50 MLS/HR; Start 01/29/19 at 13:30 Miscellaneous Information 1 ea NOTE XX ; Start 01/29/19 at 13:30 Glucose (Glutose) 15 gm Q15M PRN PO DECREASED GLUCOSE; Start 01/29/19 at 13:30 Glucose (Glutose) 22.5 gm Q15M PRN PO DECREASED GLUCOSE; Start 01/29/19 at 13:30 Dextrose (D50w Syringe) 25 ml Q15M PRN IV DECREASED GLUCOSE; Start 01/29/19 at 13:30 Dextrose (D50w Syringe) 50 ml Q15M PRN IV DECREASED GLUCOSE; Start 01/29/19 at 13:30 Glucagon (Glucagen) 1 mg Q15M PRN IM DECREASED GLUCOSE; Start 01/29/19 at 13:30 Glucose (Glutose) 15 gm Q15M PRN BUCCAL DECREASED GLUCOSE; Start 01/29/19 at 13:30 Metoclopramide HCl (Reglan) 5 mg AC BREAKFAST DINNER PO Last administered on 01/31/19at 09:20; Admin Dose 5 MG; Start 01/29/19 at 17:25 Ondansetron HCl (Zofran Inj) 4 mg Q4H PRN IV NAUSEA AND/OR VOMITING; Start 01/29/19 at 14:00 Pantoprazole (Protonix Tab) 40 mg BID@06,18 PO Last administered on 01/31/19at 05:52; Admin Dose 40 MG; Start 01/29/19 at 18:00 Atorvastatin Calcium (Lipitor) 40 mg HS PO Last administered on 01/30/19at 20:57; Admin Dose 40 MG; Start 01/29/19 at 21:00 Aspirin (Aspirin) 81 mg DAILY PO Last administered on 01/31/19at 09:17; Admin Dose 81 MG; Start 01/30/19 at 09:00 Hydralazine HCl (Apresoline) 20 mg Q6 PRN IV SBP>170; Start 01/29/19 at 19:00 Miscellaneous Information (*Order Clarification Bulletin) TRULICITY IS NON FORMULARY ITEM...PLE... Q8H XX ; Start 01/30/19 at 19:00 Carvedilol (Coreg) 12.5 mg BID PO ; Start 01/31/19 at 21:00 Acetylcysteine (Nac) 1,200 mg BID PO ; Start 01/31/19 at 11:00; Stop 02/04/19 at 10:59 Amlodipine Besylate (Norvasc) 2.5 mg BID PO ; Start 01/31/19 at 21:00; Status KYLEE RODRIGUEZ MD January 31, 2019 10:06
[2019-01-31] MEDS: ACETYLCYSTEINE 600 MG CAP PO SCH ×2 (12:05→21:18)
[2019-01-31] MEDS: SOD CHLORIDE 0.9% 1,000 ML IV SCH ×2 (16:07→18:46)
--- NOTE | 2019-01-31 16:22 | CONS ---
Assessment/Plan Assessment/Plan Assessment/Plan (Daily) * Hypertension urgency-resolved: Bp stable with amlodipine, coreg and hydralazine. will get renal doppler r/o frances * Mildly elevated troponin-trending down: suspect myocardial strain related to above . monitor per cards * Acute kidney injury with history of chronic kidney disease: renal function cont to detriorate. 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 related to htn) vs others. serological w/u in progress. recent corey unexplained and may be related to htn uregency/ ATN. cont to monitor, gentle ivf since appears cliically dry. dc PPI * Mitral, aortic and tricuspid valve regurgitation: clically compensated with no overt CHF * Diabetes: cont meds/ iss * Peripheral arterial disease: with severe claudication and prior h/o angioplasty. for co2 angio on saturday. will request Renal a doppler * anemia in ckd 4: check iron sats and ferritin. epogen if iron replete Consultation Date/Type/Reason Admit Date/Time January 29, 2019 at 10:16 Initial Consult Date Date/Time of Note DATE: 01/31/19 TIME: 16:11 24 HR Interval Summary Free Text/Dictation feels well. has no complaints. scheduled for co2 angio saturday Exam/Review of Systems Exam Vitals Vital Signs Date Temp Pulse Resp B/P (MAP) Pulse Ox O2 O2 Flow FiO2 Time Delivery Rate 01/31/19 72 16:07 01/31/19 97.9 20 137/65 98 Room Air 15:16 (89) 01/31/19 2.0 08:00 Intake and Output 01/30/19 01/30/19 01/31/19 1414:59 22:59 06:59 IntakeIntake Total 900 ml 980 ml BalanceBalance 900 ml 980 ml Constitutional: alert, oriented, well developed Psych: no complaints Eyes: nl conjunctiva Neck: supple, non-tender Respiratory: clear to auscultation Cardiovascular: regular rate and rhythm, edema Gastrointestinal: soft Results Result Diagram: 01/31/19 0739 01/31/19 0740 Results 24hrs Laboratory Tests Test 01/30/19 17:18 01/30/19 17:27 01/30/19 20:55 01/31/19 07:38 Urine Random Sodium 21 L Bedside Glucose 107 113 92 Test 01/31/19 07:39 01/31/19 07:40 01/31/19 07:42 01/31/19 12:41 White Blood Count 6.9 Red Blood Count 3.11 L Hemoglobin 9.4 L Hematocrit 27.8 L Mean Corpuscular 89.4 Volume Mean Corpuscular 30.2 Hemoglobin Mean Corpuscular 33.8 Hemoglobin Concent Red Cell 12.3 Distribution Width Platelet Count 332 Mean Platelet Volume 9.8 Immature 0.600 H Granulocytes % Neutrophils % 55.7 Lymphocytes % 28.3 Monocytes % 8.0 Eosinophils % 6.4 Basophils % 1.0 Nucleated Red Blood 0.0 Cells % Immature 0.040 H Granulocytes # Neutrophils # 3.9 Lymphocytes # 2.0 Monocytes # 0.6 Eosinophils # 0.4 Basophils # 0.1 Nucleated Red Blood 0.0 Cells # Iron Level 98 Total Iron Binding 222 L Capacity Percent Iron 44 Saturation Sodium Level 136 Potassium Level 4.7 Chloride Level 111 H Carbon Dioxide Level 22 Anion Gap 3 L Blood Urea Nitrogen 50 H Creatinine 3.89 H Est Glomerular 15 L Filtrat Rate mL/min Glucose Level 90 Calcium Level 8.4 Phosphorus Level 5.0 H Magnesium Level 2.4 Ferritin 47.2 Vitamin B12 Level 675 Complement C3 88 Complement C4 33 Bedside Glucose 110 Medications Medication Current Medications Ergocalciferol (Drisdol) 50,000 unit We@0900 PO ; Start 02/04/19 at 09:00 Glycopyrrolate (Robinul) 1 mg BID PO Last administered on 01/31/19at 09:17; Admin Dose 1 MG; Start 01/29/19 at 13:00 Ranitidine HCl (Zantac) 150 mg Q12 PO Last administered on 01/31/19at 09:19; Admin Dose 150 MG; Start 01/29/19 at 21:00 Miscellaneous Information 1.5 mg Q SUN SQ ; Start 01/29/19 at 13:00; Status UNV IV Flush (NS 3 ml) 3 ml PER PROTOCOL IV ; Start 01/29/19 at 13:30 Acetaminophen (Tylenol Tab) 650 mg Q6H PRN PO .PAIN 1-3 OR TEMP; Start 01/29/19 at 13:30 Heparin Sodium (Porcine) (Heparin (5000 Units/1ml)) 5,000 unit Q12 SC Last administered on 01/31/19at 09:31; Admin Dose 5,000 UNIT; Start 01/29/19 at 21:00 Insulin Aspart (Novolog Insulin Pen) NOVOLOG *MILD* ALGORITHM WITH MEALS BEDTIME SC ; Start 01/29/19 at 17:55 Sodium Chloride 1,000 ml @ 50 mls/hr Q20H IV Last administered on 01/30/19at 20 :57; Admin Dose 50 MLS/HR; Start 01/29/19 at 13:30 Miscellaneous Information 1 ea NOTE XX ; Start 01/29/19 at 13:30 Glucose (Glutose) 15 gm Q15M PRN PO DECREASED GLUCOSE; Start 01/29/19 at 13:30 Glucose (Glutose) 22.5 gm Q15M PRN PO DECREASED GLUCOSE; Start 01/29/19 at 13:30 Dextrose (D50w Syringe) 25 ml Q15M PRN IV DECREASED GLUCOSE; Start 01/29/19 at 13:30 Dextrose (D50w Syringe) 50 ml Q15M PRN IV DECREASED GLUCOSE; Start 01/29/19 at 13:30 Glucagon (Glucagen) 1 mg Q15M PRN IM DECREASED GLUCOSE; Start 01/29/19 at 13:30 Glucose (Glutose) 15 gm Q15M PRN BUCCAL DECREASED GLUCOSE; Start 01/29/19 at 13:30 Metoclopramide HCl (Reglan) 5 mg AC BREAKFAST DINNER PO Last administered on 01/31/19at 09:20; Admin Dose 5 MG; Start 01/29/19 at 17:25 Ondansetron HCl (Zofran Inj) 4 mg Q4H PRN IV NAUSEA AND/OR VOMITING; Start 01/29/19 at 14:00 Pantoprazole (Protonix Tab) 40 mg BID@06,18 PO Last administered on 01/31/19at 05:52; Admin Dose 40 MG; Start 01/29/19 at 18:00 Atorvastatin Calcium (Lipitor) 40 mg HS PO Last administered on 01/30/19at 20:57; Admin Dose 40 MG; Start 01/29/19 at 21:00 Aspirin (Aspirin) 81 mg DAILY PO Last administered on 01/31/19at 09:17; Admin Dose 81 MG; Start 01/30/19 at 09:00 Hydralazine HCl (Apresoline) 20 mg Q6 PRN IV SBP>170; Start 01/29/19 at 19:00 Miscellaneous Information (*Order Clarification Bulletin) TRULICITY IS NON FORMULARY ITEM...PLE... Q8H XX ; Start 01/30/19 at 19:00 Carvedilol (Coreg) 12.5 mg BID PO ; Start 01/31/19 at 21:00 Acetylcysteine (Nac) 1,200 mg BID PO Last administered on 01/31/19at 12:05; Admin Dose 1,200 MG; Start 01/31/19 at 11:00; Stop 02/04/19 at 10:59 Amlodipine Besylate (Norvasc) 2.5 mg BID PO ; Start 01/31/19 at 21:00 BRENDA GRANDE MD January 31, 2019 16:21
[2019-01-31] MEDS ORDERED: AMLODIPINE 5 MG TAB PO SCH (21:00)
[2019-01-31] MEDS: ATORVASTATIN 40 MG TAB PO SCH (21:18)
[2019-01-31] MEDS ORDERED: ALFUZOSIN (SR) 10 MG TAB PO ONE (21:30)
[2019-02-01] VITALS (12 sets, daily range): BP systolic 135–182; BP diastolic 67–82; PULSE 67–87; RESP 18–20
[2019-02-01] MEDS: [UNRECOGNIZED DRUG - OTHER] XX SCH ×3 (02:11→19:00)
[2019-02-01] MEDS: INSULIN ASPART [NOVOLOG] 3 ML PEN SC SCH ×4 (07:33→21:00)
[2019-02-01] MEDS: RANITIDINE 150 MG TAB PO SCH ×2 (08:39→21:40)
[2019-02-01] MEDS: ACETYLCYSTEINE 600 MG CAP PO SCH ×2 (08:39→21:40)
[2019-02-01] MEDS: ASPIRIN 81 MG TAB PO SCH (08:39)
[2019-02-01] MEDS: GLYCOPYRROLATE 1 MG TAB PO SCH ×2 (08:39→21:40)
[2019-02-01] MEDS: METOCLOPRAMIDE 5 MG TAB PO SCH ×2 (08:40→17:09)
[2019-02-01] MEDS: HEPARIN 5,000 UNIT/1 ML VIAL SC SCH ×2 (09:36→21:52)
--- NOTE | 2019-02-01 10:34 | PN ---
Date/Time of Note Date/Time of Note DATE: 02/01/19 TIME: 10:31 Assessment/Plan VTE Prophylaxis Risk score (from Ns)>0 risk: 3 SCD applied (from [facility] [place]): Yes SCD contraindicated: low risk/ambulating Pharmacological prophylaxis: heparin Pharm contraindication: low risk/ambulating Lines/Catheters IV C[facility]from [facility] Saline Lock Assessment/Plan Problems: (1) Peripheral vascular disease of lower extremity Status: Chronic Comment: Patient is ready for angiography tomorrow by Dr. Monaco (2) Chronic kidney disease, stage IV (severe) Status: Chronic Comment: Appreciate input from nephrology. Please note the this is going to be a multifactorial issue and a portion of it is due to an obstructive uropathy. Patient is on medications to assist with that now although I do not know how much will get back. (3) Benign prostatic hyperplasia with urinary obstruction Status: Chronic Comment: Now on alpha blockade successfully (4) Type 2 diabetes mellitus with diabetic peripheral angiopathy without gangrene Status: Chronic Comment: Adequate glycemic control. Further work-up with Dr. Monaco Qualifiers: Diabetes mellitus alf insulin use: without alf use Qualified Codes: E11.51 - Type 2 diabetes mellitus with diabetic peripheral angiopathy without gangrene (5) Disturbance of salivary secretion Status: Chronic Comment: Wound we will see how he does after dose of Trulicity if this recurs then this is nausea due to medications. (6) Vitamin D deficiency Status: Chronic Comment: Stable. (7) Essential (primary) hypertension Status: Chronic Comment: Adequate control. Result Diagram: 02/01/19 0608 02/01/19 0608 Results 24hrs Laboratory Tests Test 01/31/19 12:41 01/31/19 17:59 01/31/19 19:20 01/31/19 21:21 Bedside Glucose 110 110 108 Urine Random 27.93 Creatinine Urine Total Protein 259.0 H Test 02/01/19 06:08 02/01/19 07:32 White Blood Count 7.3 Red Blood Count 3.11 L Hemoglobin 9.5 L Hematocrit 27.7 L Mean Corpuscular 89.1 Volume Mean Corpuscular 30.5 Hemoglobin Mean Corpuscular 34.3 Hemoglobin Concent Red Cell 12.3 Distribution Width Platelet Count 309 Mean Platelet Volume 9.7 Immature 0.500 H Granulocytes % Neutrophils % 58.2 Lymphocytes % 24.8 Monocytes % 8.6 Eosinophils % 7.1 H Basophils % 0.8 Nucleated Red Blood 0.0 Cells % Immature 0.040 H Granulocytes # Neutrophils # 4.3 Lymphocytes # 1.8 Monocytes # 0.6 Eosinophils # 0.5 Basophils # 0.1 Nucleated Red Blood 0.0 Cells # Sodium Level 138 Potassium Level 5.0 Chloride Level 112 H Carbon Dioxide Level 21 Anion Gap 5 Blood Urea Nitrogen 50 H Creatinine 3.72 H Est Glomerular 16 L Filtrat Rate mL/min Glucose Level 92 Calcium Level 8.1 L Phosphorus Level 4.7 Magnesium Level 2.4 Iron Level 88 Total Iron Binding 216 L Capacity Percent Iron 41 Saturation Ferritin 48.8 Total Bilirubin 0.3 Direct Bilirubin 0.00 Indirect Bilirubin 0.3 Aspartate Amino 17 Transf (AST/SGOT) Alanine 23 Aminotransferase (AL T/SGPT) Alkaline Phosphatase 78 Total Protein 6.0 L Albumin 2.9 L Globulin 3.10 Albumin/Globulin 0.93 Ratio Bedside Glucose 93 Subjective 24 Hr Interval Summary Free Text/Dictation Patient reports he had some salivation overnight. Otherwise he reports he is doing well Constitutional: no complaints (No fevers chills or sweats) Respiratory: no complaints (Cough no wheezing) Cardiovascular: no complaints (Chest pain no palpitations), other (Claudication with short distance walking) Gastrointestinal: other (Some excess elevation) Genitourinary: no complaints Neurologic: no complaints Exam/Review of Systems Exam Vitals Vital Signs Date Temp Pulse Resp B/P (MAP) Pulse Ox O2 O2 Flow FiO2 Time Delivery Rate 02/01/19 79 08:00 02/01/19 98.2 18 141/67 98 07:36 (91) 01/31/19 Room Air 15:16 01/31/19 2.0 08:00 Intake and Output 01/31/19 01/31/19 02/01/19 1515:00 23:00 07:00 IntakeIntake Total 1100 ml 1300 ml 700 ml BalanceBalance 1100 ml 1300 ml 700 ml Constitutional: alert, oriented Neck: supple, non-tender Respiratory: clear to auscultation, normal air movement Cardiovascular: regular rate and rhythm, nl pulses Results Results 24hrs Laboratory Tests Test 01/31/19 12:41 01/31/19 17:59 01/31/19 19:20 01/31/19 21:21 Bedside Glucose 110 110 108 Urine Random 27.93 Creatinine Urine Total Protein 259.0 H Test 02/01/19 06:08 02/01/19 07:32 White Blood Count 7.3 Red Blood Count 3.11 L Hemoglobin 9.5 L Hematocrit 27.7 L Mean Corpuscular 89.1 Volume Mean Corpuscular 30.5 Hemoglobin Mean Corpuscular 34.3 Hemoglobin Concent Red Cell 12.3 Distribution Width Platelet Count 309 Mean Platelet Volume 9.7 Immature 0.500 H Granulocytes % Neutrophils % 58.2 Lymphocytes % 24.8 Monocytes % 8.6 Eosinophils % 7.1 H Basophils % 0.8 Nucleated Red Blood 0.0 Cells % Immature 0.040 H Granulocytes # Neutrophils # 4.3 Lymphocytes # 1.8 Monocytes # 0.6 Eosinophils # 0.5 Basophils # 0.1 Nucleated Red Blood 0.0 Cells # Sodium Level 138 Potassium Level 5.0 Chloride Level 112 H Carbon Dioxide Level 21 Anion Gap 5 Blood Urea Nitrogen 50 H Creatinine 3.72 H Est Glomerular 16 L Filtrat Rate mL/min Glucose Level 92 Calcium Level 8.1 L Phosphorus Level 4.7 Magnesium Level 2.4 Iron Level 88 Total Iron Binding 216 L Capacity Percent Iron 41 Saturation Ferritin 48.8 Total Bilirubin 0.3 Direct Bilirubin 0.00 Indirect Bilirubin 0.3 Aspartate Amino 17 Transf (AST/SGOT) Alanine 23 Aminotransferase (AL T/SGPT) Alkaline Phosphatase 78 Total Protein 6.0 L Albumin 2.9 L Globulin 3.10 Albumin/Globulin 0.93 Ratio Bedside Glucose 93 Medications Medication Current Medications Ergocalciferol (Drisdol) 50,000 unit We@0900 PO ; Start 02/04/19 at 09:00 Glycopyrrolate (Robinul) 1 mg BID PO Last administered on 02/01/19at 08:39; Admin Dose 1 MG; Start 01/29/19 at 13:00 Ranitidine HCl (Zantac) 150 mg Q12 PO Last administered on 02/01/19at 08:39; Admin Dose 150 MG; Start 01/29/19 at 21:00 Miscellaneous Information 1.5 mg Q SUN SQ ; Start 01/29/19 at 13:00; Status UNV IV Flush (NS 3 ml) 3 ml PER PROTOCOL IV ; Start 01/29/19 at 13:30 Acetaminophen (Tylenol Tab) 650 mg Q6H PRN PO .PAIN 1-3 OR TEMP; Start 01/29/19 at 13:30 Heparin Sodium (Porcine) (Heparin (5000 Units/1ml)) 5,000 unit Q12 SC Last administered on 02/01/19at 09:36; Admin Dose 5,000 UNIT; Start 01/29/19 at 21:00 Insulin Aspart (Novolog Insulin Pen) NOVOLOG *MILD* ALGORITHM WITH MEALS BEDTIME SC ; Start 01/29/19 at 17:55 Sodium Chloride 1,000 ml @ 75 mls/hr [id number] IV Last administered on 01/31/19at 18:46; Admin Dose 75 MLS/HR; Start 01/29/19 at 13:30 Miscellaneous Information 1 ea NOTE XX ; Start 01/29/19 at 13:30 Glucose (Glutose) 15 gm Q15M PRN PO DECREASED GLUCOSE; Start 01/29/19 at 13:30 Glucose (Glutose) 22.5 gm Q15M PRN PO DECREASED GLUCOSE; Start 01/29/19 at 13:30 Dextrose (D50w Syringe) 25 ml Q15M PRN IV DECREASED GLUCOSE; Start 01/29/19 at 13:30 Dextrose (D50w Syringe) 50 ml Q15M PRN IV DECREASED GLUCOSE; Start 01/29/19 at 13:30 Glucagon (Glucagen) 1 mg Q15M PRN IM DECREASED GLUCOSE; Start 01/29/19 at 13:30 Glucose (Glutose) 15 gm Q15M PRN BUCCAL DECREASED GLUCOSE; Start 01/29/19 at 13:30 Metoclopramide HCl (Reglan) 5 mg AC BREAKFAST DINNER PO Last administered on 02/01/19at 08:40; Admin Dose 5 MG; Start 01/29/19 at 17:25 Ondansetron HCl (Zofran Inj) 4 mg Q4H PRN IV NAUSEA AND/OR VOMITING; Start 01/29/19 at 14:00 Atorvastatin Calcium (Lipitor) 40 mg HS PO Last administered on 01/31/19at 21:18; Admin Dose 40 MG; Start 01/29/19 at 21:00 Aspirin (Aspirin) 81 mg DAILY PO Last administered on 02/01/19at 08:39; Admin Dose 81 MG; Start 01/30/19 at 09:00 Hydralazine HCl (Apresoline) 20 mg Q6 PRN IV SBP>170; Start 01/29/19 at 19:00 Miscellaneous Information (*Order Clarification Bulletin) TRULICITY IS NON FORMULARY ITEM...PLE... Q8H XX ; Start 01/30/19 at 19:00 Carvedilol (Coreg) 12.5 mg BID PO Last administered on 02/01/19at 08:39; Admin Dose 12.5 MG; Start 01/31/19 at 21:00 Acetylcysteine (Nac) 1,200 mg BID PO Last administered on 02/01/19at 08:39; Admin Dose 1,200 MG; Start 01/31/19 at 11:00; Stop 02/04/19 at 10:59 Amlodipine Besylate (Norvasc) 2.5 mg QHS PO ; Start 02/01/19 at 21:00 Alfuzosin HCl (Uroxatral) 10 mg HS PO ; Start 02/01/19 at 21:00 KYLEE POE MD February 01, 2019 10:34
--- NOTE | 2019-02-01 14:38 | CONS ---
Assessment/Plan Assessment/Plan Hospital Course (Demo Recall) Hypertension urgency-resolved Mildly elevated troponin-trending down Acute kidney injury with history of chronic kidney disease Preserved left ventricular ejection fraction Mitral, aortic and tricuspid valve regurgitation Diabetes Peripheral arterial disease Patient presented with symptoms of increased saliva production over the past few months and incidentally found to have elevated blood pressure and elevated troponin. Blood pressure in the emergency was above 190 systolic and on the t elemetry floor systolic 216. Denies any symptoms of chest pain or shortness of breath. Elevated troponin likely secondary to hypertension urgency as well as poor renal function/clearance, and troponins are trending down Echocardiogram with preserved left ventricular ejection fraction. Blood pressure trend overall improved, titrate meds as needed Continue aspirin and statin therapy if no contraindication Consultation Date/Type/Reason Admit Date/Time January 29, 2019 at 10:16 Initial Consult Date Type of Consult Cardiology Date/Time of Note DATE: 02/01/19 TIME: 14:36 24 HR Interval Summary Free Text/Dictation feels better, no cp,palp,sob Exam/Review of Systems Vital Signs Vitals Vital Signs Date Temp Pulse Resp B/P (MAP) Pulse Ox O2 O2 Flow FiO2 Time Delivery Rate 02/01/19 78 12:00 02/01/19 98.0 20 139/71 98 11:52 (93) 01/31/19 Room Air 15:16 01/31/19 2.0 08:00 Intake and Output 01/31/19 01/31/19 02/01/19 1515:00 23:00 07:00 IntakeIntake Total 1100 ml 1300 ml 700 ml BalanceBalance 1100 ml 1300 ml 700 ml Exam Constitutional: alert, oriented (nad) Head: normocephalic Respiratory: other (course bs,no wheeze) Cardiovascular: regular rate and rhythm (s1s2) Gastrointestinal: soft, non-tender, bowel sounds Extremities: edema (trace) Labs Result Diagram: 02/01/19 0608 02/01/19 0608 Results 24hrs Laboratory Tests Test 01/31/19 17:59 01/31/19 19:20 01/31/19 21:21 02/01/19 06:08 Bedside Glucose 110 108 Urine Random 27.93 Creatinine Urine Total Protein 259.0 H White Blood Count 7.3 Red Blood Count 3.11 L Hemoglobin 9.5 L Hematocrit 27.7 L Mean Corpuscular 89.1 Volume Mean Corpuscular 30.5 Hemoglobin Mean Corpuscular 34.3 Hemoglobin Concent Red Cell 12.3 Distribution Width Platelet Count 309 Mean Platelet Volume 9.7 Immature 0.500 H Granulocytes % Neutrophils % 58.2 Lymphocytes % 24.8 Monocytes % 8.6 Eosinophils % 7.1 H Basophils % 0.8 Nucleated Red Blood 0.0 Cells % Immature 0.040 H Granulocytes # Neutrophils # 4.3 Lymphocytes # 1.8 Monocytes # 0.6 Eosinophils # 0.5 Basophils # 0.1 Nucleated Red Blood 0.0 Cells # Sodium Level 138 Potassium Level 5.0 Chloride Level 112 H Carbon Dioxide Level 21 Anion Gap 5 Blood Urea Nitrogen 50 H Creatinine 3.72 H Est Glomerular 16 L Filtrat Rate mL/min Glucose Level 92 Calcium Level 8.1 L Phosphorus Level 4.7 Magnesium Level 2.4 Iron Level 88 Total Iron Binding 216 L Capacity Percent Iron 41 Saturation Ferritin 48.8 Total Bilirubin 0.3 Direct Bilirubin 0.00 Indirect Bilirubin 0.3 Aspartate Amino 17 Transf (AST/SGOT) Alanine 23 Aminotransferase (AL T/SGPT) Alkaline Phosphatase 78 Total Protein 6.0 L Albumin 2.9 L Globulin 3.10 Albumin/Globulin 0.93 Ratio Test 02/01/19 07:32 02/01/19 11:33 Bedside Glucose 93 98 Medications Medications Current Medications Ergocalciferol (Drisdol) 50,000 unit We@0900 PO ; Start 02/04/19 at 09:00 Glycopyrrolate (Robinul) 1 mg BID PO Last administered on 02/01/19at 08:39; Admin Dose 1 MG; Start 01/29/19 at 13:00 Ranitidine HCl (Zantac) 150 mg Q12 PO Last administered on 02/01/19at 08:39; Admin Dose 150 MG; Start 01/29/19 at 21:00 Miscellaneous Information 1.5 mg Q SUN SQ ; Start 01/29/19 at 13:00; Status UNV IV Flush (NS 3 ml) 3 ml PER PROTOCOL IV ; Start 01/29/19 at 13:30 Acetaminophen (Tylenol Tab) 650 mg Q6H PRN PO .PAIN 1-3 OR TEMP; Start 01/29/19 at 13:30 Heparin Sodium (Porcine) (Heparin (5000 Units/1ml)) 5,000 unit Q12 SC Last administered on 02/01/19at 09:36; Admin Dose 5,000 UNIT; Start 01/29/19 at 21:00 Insulin Aspart (Novolog Insulin Pen) NOVOLOG *MILD* ALGORITHM WITH MEALS BEDTIME SC ; Start 01/29/19 at 17:55 Miscellaneous Information 1 ea NOTE XX ; Start 01/29/19 at 13:30 Glucose (Glutose) 15 gm Q15M PRN PO DECREASED GLUCOSE; Start 01/29/19 at 13:30 Glucose (Glutose) 22.5 gm Q15M PRN PO DECREASED GLUCOSE; Start 01/29/19 at 13:30 Dextrose (D50w Syringe) 25 ml Q15M PRN IV DECREASED GLUCOSE; Start 01/29/19 at 13:30 Dextrose (D50w Syringe) 50 ml Q15M PRN IV DECREASED GLUCOSE; Start 01/29/19 at 13:30 Glucagon (Glucagen) 1 mg Q15M PRN IM DECREASED GLUCOSE; Start 01/29/19 at 13:30 Glucose (Glutose) 15 gm Q15M PRN BUCCAL DECREASED GLUCOSE; Start 01/29/19 at 1 3:30 Metoclopramide HCl (Reglan) 5 mg AC BREAKFAST DINNER PO Last administered on 02/01/19at 08:40; Admin Dose 5 MG; Start 01/29/19 at 17:25 Ondansetron HCl (Zofran Inj) 4 mg Q4H PRN IV NAUSEA AND/OR VOMITING; Start 01/29/19 at 14:00 Atorvastatin Calcium (Lipitor) 40 mg HS PO Last administered on 01/31/19at 21:18; Admin Dose 40 MG; Start 01/29/19 at 21:00 Aspirin (Aspirin) 81 mg DAILY PO Last administered on 02/01/19at 08:39; Admin Dose 81 MG; Start 01/30/19 at 09:00 Hydralazine HCl (Apresoline) 20 mg Q6 PRN IV SBP>170; Start 01/29/19 at 19:00 Miscellaneous Information (*Order Clarification Bulletin) TRULICITY IS NON FORMULARY ITEM...PLE... Q8H XX ; Start 01/30/19 at 19:00 Carvedilol (Coreg) 12.5 mg BID PO Last administered on 02/01/19at 08:39; Admin Dose 12.5 MG; Start 01/31/19 at 21:00 Acetylcysteine (Nac) 1,200 mg BID PO Last administered on 02/01/19at 08:39; Admin Dose 1,200 MG; Start 01/31/19 at 11:00; Stop 02/04/19 at 10:59 Amlodipine Besylate (Norvasc) 2.5 mg QHS PO ; Start 02/01/19 at 21:00 Alfuzosin HCl (Uroxatral) 10 mg HS PO ; Start 02/01/19 at 21:00 Michele Richard DO February 01, 2019 14:37
--- NOTE | 2019-02-01 16:37 | CONS ---
Assessment/Plan Assessment/Plan Assessment/Plan (Daily) * Hypertension urgency-resolved: Bp stable with amlodipine, coreg and hydralazine. will get renal doppler r/o frances/ result -pending * Mildly elevated troponin-trending down: suspect myocardial strain related to above . monitor per cards * Acute kidney injury with history of chronic kidney disease: renal function mildly better today. 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 related to htn) vs others. serological w/u in progress. recent corey unexplained and may be related to htn uregency/ ATN. cont to monitor, gentle ivf since appears cliically dry. dc PPI * Mitral, aortic and tricuspid valve regurgitation: clinically compensated with no overt CHF * Diabetes: cont meds/ iss * Peripheral arterial disease: with severe claudication and prior h/o angioplasty. for co2 angio on saturday. renal doppler ordered and pending * anemia in ckd 4: check iron sats and ferritin. epogen if iron replete Consultation Date/Type/Reason Admit Date/Time January 29, 2019 at 10:16 Initial Consult Date Date/Time of Note DATE: 02/01/19 TIME: 16:36 24 HR Interval Summary Free Text/Dictation feels well. for co2 angio in am Exam/Review of Systems Exam Vitals Vital Signs Date Temp Pulse Resp B/P (MAP) Pulse Ox O2 O2 Flow FiO2 Time Delivery Rate 02/01/19 98.0 73 18 135/73 98 16:21 (93) 01/31/19 Room Air 15:16 01/31/19 2.0 08:00 Intake and Output 01/31/19 01/31/19 02/01/19 1515:00 23:00 07:00 IntakeIntake Total 1100 ml 1300 ml 700 ml BalanceBalance 1100 ml 1300 ml 700 ml Constitutional: alert, oriented Psych: no complaints Head: normocephalic Neck: supple Respiratory: clear to auscultation Cardiovascular: regular rate and rhythm, edema Results Result Diagram: 02/01/19 0608 02/01/19 0608 Results 24hrs Laboratory Tests Test 01/31/19 17:59 01/31/19 19:20 01/31/19 21:21 02/01/19 06:08 Bedside Glucose 110 108 Urine Random 27.93 Creatinine Urine Total Protein 259.0 H White Blood Count 7.3 Red Blood Count 3.11 L Hemoglobin 9.5 L Hematocrit 27.7 L Mean Corpuscular 89.1 Volume Mean Corpuscular 30.5 Hemoglobin Mean Corpuscular 34.3 Hemoglobin Concent Red Cell 12.3 Distribution Width Platelet Count 309 Mean Platelet Volume 9.7 Immature 0.500 H Granulocytes % Neutrophils % 58.2 Lymphocytes % 24.8 Monocytes % 8.6 Eosinophils % 7.1 H Basophils % 0.8 Nucleated Red Blood 0.0 Cells % Immature 0.040 H Granulocytes # Neutrophils # 4.3 Lymphocytes # 1.8 Monocytes # 0.6 Eosinophils # 0.5 Basophils # 0.1 Nucleated Red Blood 0.0 Cells # Sodium Level 138 Potassium Level 5.0 Chloride Level 112 H Carbon Dioxide Level 21 Anion Gap 5 Blood Urea Nitrogen 50 H Creatinine 3.72 H Est Glomerular 16 L Filtrat Rate mL/min Glucose Level 92 Calcium Level 8.1 L Phosphorus Level 4.7 Magnesium Level 2.4 Iron Level 88 Total Iron Binding 216 L Capacity Percent Iron 41 Saturation Ferritin 48.8 Total Bilirubin 0.3 Direct Bilirubin 0.00 Indirect Bilirubin 0.3 Aspartate Amino 17 Transf (AST/SGOT) Alanine 23 Aminotransferase (AL T/SGPT) Alkaline Phosphatase 78 Total Protein 6.0 L Albumin 2.9 L Globulin 3.10 Albumin/Globulin 0.93 Ratio Test 02/01/19 07:32 02/01/19 11:33 Bedside Glucose 93 98 Medications Medication Current Medications Ergocalciferol (Drisdol) 50,000 unit We@0900 PO ; Start 02/04/19 at 09:00 Glycopyrrolate (Robinul) 1 mg BID PO Last administered on 02/01/19at 08:39; Admin Dose 1 MG; Start 01/29/19 at 13:00 Ranitidine HCl (Zantac) 150 mg Q12 PO Last administered on 02/01/19at 08:39; Admin Dose 150 MG; Start 01/29/19 at 21:00 Miscellaneous Information 1.5 mg Q SUN SQ ; Start 01/29/19 at 13:00; Status UNV IV Flush (NS 3 ml) 3 ml PER PROTOCOL IV ; Start 01/29/19 at 13:30 Acetaminophen (Tylenol Tab) 650 mg Q6H PRN PO .PAIN 1-3 OR TEMP; Start 01/29/19 at 13:30 Heparin Sodium (Porcine) (Heparin (5000 Units/1ml)) 5,000 unit Q12 SC Last administered on 02/01/19at 09:36; Admin Dose 5,000 UNIT; Start 01/29/19 at 21:00 Insulin Aspart (Novolog Insulin Pen) NOVOLOG *MILD* ALGORITHM WITH MEALS BEDTIME SC ; Start 01/29/19 at 17:55 Miscellaneous Information 1 ea NOTE XX ; Start 01/29/19 at 13:30 Glucose (Glutose) 15 gm Q15M PRN PO DECREASED GLUCOSE; Start 01/29/19 at 13:30 Glucose (Glutose) 22.5 gm Q15M PRN PO DECREASED GLUCOSE; Start 01/29/19 at 13:30 Dextrose (D50w Syringe) 25 ml Q15M PRN IV DECREASED GLUCOSE; Start 01/29/19 at 13:30 Dextrose (D50w Syringe) 50 ml Q15M PRN IV DECREASED GLUCOSE; Start 01/29/19 at 13:30 Glucagon (Glucagen) 1 mg Q15M PRN IM DECREASED GLUCOSE; Start 01/29/19 at 13:30 Glucose (Glutose) 15 gm Q15M PRN BUCCAL DECREASED GLUCOSE; Start 01/29/19 at 13:30 Metoclopramide HCl (Reglan) 5 mg AC BREAKFAST DINNER PO Last administered on 02/01/19at 08:40; Admin Dose 5 MG; Start 01/29/19 at 17:25 Ondansetron HCl (Zofran Inj) 4 mg Q4H PRN IV NAUSEA AND/OR VOMITING; Start 01/29/19 at 14:00 Atorvastatin Calcium (Lipitor) 40 mg HS PO Last administered on 01/31/19at 21:18; Admin Dose 40 MG; Start 01/29/19 at 21:00 Aspirin (Aspirin) 81 mg DAILY PO Last administered on 02/01/19at 08:39; Admin Dose 81 MG; Start 01/30/19 at 09:00 Hydralazine HCl (Apresoline) 20 mg Q6 PRN IV SBP>170; Start 01/29/19 at 19:00 Miscellaneous Information (*Order Clarification Bulletin) TRULICITY IS NON FO RMULARY ITEM...PLE... Q8H XX ; Start 01/30/19 at 19:00 Carvedilol (Coreg) 12.5 mg BID PO Last administered on 02/01/19at 08:39; Admin Dose 12.5 MG; Start 01/31/19 at 21:00 Acetylcysteine (Nac) 1,200 mg BID PO Last administered on 02/01/19at 08:39; Admin Dose 1,200 MG; Start 01/31/19 at 11:00; Stop 02/04/19 at 10:59 Amlodipine Besylate (Norvasc) 2.5 mg QHS PO ; Start 02/01/19 at 21:00 Alfuzosin HCl (Uroxatral) 10 mg HS PO ; Start 02/01/19 at 21:00 BRENDA GRANDE MD February 01, 2019 16:37
[2019-02-01] MEDS ORDERED: ALFUZOSIN (SR) 10 MG TAB PO SCH (21:00)
[2019-02-01] MEDS ORDERED: AMLODIPINE 5 MG TAB PO SCH (21:00)
[2019-02-01] MEDS: ATORVASTATIN 40 MG TAB PO SCH (21:40)
[2019-02-02] VITALS (18 sets, daily range): BP systolic 140–167; BP diastolic 65–85; PULSE 64–81; RESP 11–22
[2019-02-02] MEDS: [UNRECOGNIZED DRUG - OTHER] XX SCH ×2 (03:00→11:00)
[2019-02-02] MEDS ORDERED: MIDAZOLAM 1 MG/ML 2 ML INJ ONE (07:08)
[2019-02-02] MEDS ORDERED: FENTAnyl 50 MCG/ML VIAL ONE (07:08)
[2019-02-02] MEDS ORDERED: LIDOCAINE 1% (MDV) 20 ML INJ ONE (07:08)
[2019-02-02] MEDS ORDERED: HEPARIN 1000 UNITS/ML 10 ML INJ ONE (07:11)
[2019-02-02] MEDS ORDERED: HEPARIN 1000 UNITS/NS (A-LINE) 1,000 ML ONE (07:11)
[2019-02-02] MEDS: METOCLOPRAMIDE 5 MG TAB PO SCH ×2 (07:25→16:57)
[2019-02-02] MEDS: INSULIN ASPART [NOVOLOG] 3 ML PEN SC SCH ×3 (07:55→16:58)
--- NOTE | 2019-02-02 08:09 | CONS ---
Assessment/Plan Assessment/Plan Assessment/Plan 1. 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 Euvolemic 3. Now in soap slabber pursuing PVD, lower extremities 4. Elev K, will give Kayexelate 5. Anemia, will start Epogen, iron studies noted 6. I reduced dose of Zantac for reduced GFR Consultation Date/Type/Reason Admit Date/Time January 29, 2019 at 10:16 Type of Consult Nephrology Date/Time of Note DATE: 02/02/19 TIME: 08:07 Respiratory: No shortness of breath Cardiovascular: No chest pain Gastrointestinal: no complaints Genitourinary: no complaints Exam/Review of Systems Vital Signs Vitals Vital Signs Date Temp Pulse Resp B/P (MAP) Pulse Ox O2 O2 Flow FiO2 Time Delivery Rate 02/02/19 08:02 02/02/19 98.9 18 141/65 96 04:00 (90) 02/01/19 Nasal 2.0 20:00 Cannula Intake and Output 02/01/19 02/01/19 02/02/19 1414:59 22:59 06:59 IntakeIntake Total 1150 ml 550 ml BalanceBalance 1150 ml 550 ml Labs Result Diagram: 02/02/19 0531 02/02/19 0531 Results 24hrs Laboratory Tests Test 02/01/19 11:33 02/01/19 17:08 02/01/19 21:38 02/02/19 05:31 Bedside Glucose 98 107 83 White Blood Count 6.8 Red Blood Count 2.95 L Hemoglobin 9.0 L Hematocrit 26.5 L Mean Corpuscular 89.8 Volume Mean Corpuscular 30.5 Hemoglobin Mean Corpuscular 34.0 Hemoglobin Concent Red Cell 12.3 Distribution Width Platelet Count 307 Mean Platelet Volume 10.0 Immature 0.400 Granulocytes % Neutrophils % 59.7 Lymphocytes % 24.6 Monocytes % 8.1 Eosinophils % 6.3 Basophils % 0.9 Nucleated Red Blood 0.0 Cells % Immature 0.030 Granulocytes # Neutrophils # 4.1 Lymphocytes # 1.7 Monocytes # 0.6 Eosinophils # 0.4 Basophils # 0.1 Nucleated Red Blood 0.0 Cells # Sodium Level 137 Potassium Level 5.4 H Chloride Level 111 H Carbon Dioxide Level 20 L Anion Gap 6 Blood Urea Nitrogen 53 H Creatinine 3.98 H Est Glomerular 15 L Filtrat Rate mL/min Glucose Level 100 Calcium Level 8.5 Phosphorus Level 4.9 Magnesium Level 2.4 Total Bilirubin 0.3 Direct Bilirubin 0.00 Indirect Bilirubin 0.3 Aspartate Amino 14 L Transf (AST/SGOT) Alanine 14 Aminotransferase (AL T/SGPT) Alkaline Phosphatase 74 Total Protein 5.7 L Albumin 2.9 L Globulin 2.80 Albumin/Globulin 1.03 Ratio Test 02/02/19 06:05 Bedside Glucose 95 Medications Medications Current Medications Ergocalciferol (Drisdol) 50,000 unit We@0900 PO ; Start 02/04/19 at 09:00 Glycopyrrolate (Robinul) 1 mg BID PO Last administered on 02/01/19at 21:40; Admin Dose 1 MG; Start 01/29/19 at 13:00 Ranitidine HCl (Zantac) 150 mg Q12 PO Last administered on 02/01/19at 21:40; A dmin Dose 150 MG; Start 01/29/19 at 21:00 Miscellaneous Information 1.5 mg Q SUN SQ ; Start 01/29/19 at 13:00; Status UNV IV Flush (NS 3 ml) 3 ml PER PROTOCOL IV ; Start 01/29/19 at 13:30 Acetaminophen (Tylenol Tab) 650 mg Q6H PRN PO .PAIN 1-3 OR TEMP; Start 01/29/19 at 13:30 Heparin Sodium (Porcine) (Heparin (5000 Units/1ml)) 5,000 unit Q12 SC Last administered on 02/01/19at 21:52; Admin Dose 5,000 UNIT; Start 01/29/19 at 21:00 Insulin Aspart (Novolog Insulin Pen) NOVOLOG *MILD* ALGORITHM WITH MEALS BEDTIME SC ; Start 01/29/19 at 17:55 Miscellaneous Information 1 ea NOTE XX ; Start 01/29/19 at 13:30 Glucose (Glutose) 15 gm Q15M PRN PO DECREASED GLUCOSE; Start 01/29/19 at 13:30 Glucose (Glutose) 22.5 gm Q15M PRN PO DECREASED GLUCOSE; Start 01/29/19 at 13:30 Dextrose (D50w Syringe) 25 ml Q15M PRN IV DECREASED GLUCOSE; Start 01/29/19 at 13:30 Dextrose (D50w Syringe) 50 ml Q15M PRN IV DECREASED GLUCOSE; Start 01/29/19 at 13:30 Glucagon (Glucagen) 1 mg Q15M PRN IM DECREASED GLUCOSE; Start 01/29/19 at 13:30 Glucose (Glutose) 15 gm Q15M PRN BUCCAL DECREASED GLUCOSE; Start 01/29/19 at 13:30 Metoclopramide HCl (Reglan) 5 mg AC BREAKFAST DINNER PO Last administered on 02/01/19 17:09; Admin Dose 5 MG; Start 01/29/19 at 17:25 Ondansetron HCl (Zofran Inj) 4 mg Q4H PRN IV NAUSEA AND/OR VOMITING; Start 01/29/19 at 14:00 Atorvastatin Calcium (Lipitor) 40 mg HS PO Last administered on 02/01/19 21:40; Admin Dose 40 MG; Start 01/29/19 at 21:00 Aspirin (Aspirin) 81 mg DAILY PO Last administered on 02/01/19 08:39; Admin Dose 81 MG; Start 01/30/19 at 09:00 Hydralazine HCl (Apresoline) 20 mg Q6 PRN IV SBP>170; Start 01/29/19 at 19:00 Miscellaneous Information (*Order Clarification Bulletin) TRULICITY IS NON FORMULARY ITEM...PLE... Q8H XX ; Start 01/30/19 at 19:00 Carvedilol (Coreg) 12.5 mg BID PO Last administered on 02/01/19 21:41; Admin Dose 12.5 MG; Start 01/31/19 at 21:00 Acetylcysteine (Nac) 1,200 mg BID PO Last administered on 02/01/19 21:40; Admin Dose 1,200 MG; Start 01/31/19 at 11:00; Stop 02/04/19 at 10:59 Amlodipine Besylate (Norvasc) 2.5 mg QHS PO Last administered on 02/01/19 21:41; Admin Dose 2.5 MG; Start 02/01/19 at 21:00 Alfuzosin HCl (Uroxatral) 10 mg HS PO Last administered on 02/01/19 21:40; Admin Dose 10 MG; Start 02/01/19 at 21:00 DOT ASHLEY MD February 02, 2019 08:09
[2019-02-02] MEDS ORDERED: IODIXANOL LOCM 50 ML BTL ONE (08:11)
--- NOTE | 2019-02-02 08:21 | SIPON ---
Date/Time of Note Date/Time of Note DATE: 02/02/19 TIME: 08:20 Operative Report Preoperative Diagnosis R calf claudication Postoperative Diagnosis same Operation/Procedure Performed aortogram, right LE runoff - R pop occlusion at the knee with reconstitution in the upper calf and single vessel peroneal runoff Surgeon see signature line distribution center assistant none Anesthesia: other Estimated blood loss: none Transfusion Required none Specimen none Grafts/Implants none Complications none WALTER LOWERY MD February 02, 2019 08:21
[2019-02-02] MEDS: HEPARIN 5,000 UNIT/1 ML VIAL SC SCH (09:00)
[2019-02-02] MEDS ORDERED: RANITIDINE 150 MG TAB PO SCH (09:00)
[2019-02-02] MEDS ORDERED: SODIUM POLYSTYRENE 15 GM KIT (POWDER + SORBITOL) PO SCH (09:00)
--- NOTE | 2019-02-02 09:16 | OPR ---
DATE OF OPERATION: 02/02/2019 PREOPERATIVE DIAGNOSIS: Severe right calf claudication. POSTOPERATIVE DIAGNOSIS: Severe right calf claudication. PROCEDURE PERFORMED: Abdominal aortogram and right lower extremity runoff using CO2. He has a 5 mL total of iodine contrast. SURGEON: Walter Monaco M.D. ANESTHESIA: Local anesthesia. ESTIMATED BLOOD LOSS: Minimal. COMPLICATIONS: No intraprocedural complications. INDICATIONS: This is a 68-year-old diabetic hypertensive gentleman with severe stage IV/V chronic ki dney disease. He has a creatinine of 3 to 4. He has had bilateral lower extremity arterial interven tions in the past. He has had the left first toe amputated. The right fifth toe amputated. These r emain well healed. About 2 weeks ago, he had essentially rest pain in the right leg that has now imp roved, now he just has severe calf claudication. He had a duplex done recently that shows a right po pliteal artery is now occluded, previously it was just stenotic. I brought him in today for an angio gram and possible intervention. His creatinine is just about 4. It has been there for the last few days. I want to give as little contrast as possible. I used CO2 to get adequate visualization of th e occluded segment. I did give him about 5 mL of contrast just to get a decent image because there i s a little runoff below the knee. PROCEDURE: The patient was brought to the laboratory engineer, placed on the table in supine position. Left gr oin was prepped and draped in the usual sterile fashion. I began by infiltrating over the left commo n femoral artery using 10 mL of 1% Xylocaine. Using micropuncture needle to enter the artery under u ltrasound guidance. An 0.018 wire was inserted through the needle into the artery, then a micropunct ure sheath was advanced over the wire into the artery. I then advanced an 0.035 Bentson wire from th e abdominal aorta, exchanged the micropuncture sheath for a 5-Tai[place]ese sheath over a wire. I then adva nced a rim catheter over the wire and into the infrarenal aorta and did infrarenal aortogram. I adva nced the catheter up and over the bifurcation using the Bentson wire for support. I advanced a wire into the mid SFA and then did runoff down the right lower extremity. FINDINGS OF ANGIOGRAPHY: The infrarenal aorta; both common and external iliac arteries are widely pa tent. The internal iliac arteries are diffusely diseased. Both common femoral arteries are widely p atent. The right superficial and profunda femoral arteries are widely patent. The right popliteal a rtery is patent without any disease and then right at the knee is complete occlusion and there is a l arge geniculate collateral that crosses that comes around the area of occlusion, refills the below kn ee pop. The length of the occlusion is probably only 2 to 3 cm in length, below knee pop is patent. There is a huge caliber difference between the above and below knee pop. It is like twice as big ab ove the knee than below and then there is a single vessel runoff below the knee via the peroneal. Th e posterior tibial and anterior tibial arteries are both occluded. I could not really visualize the foot with CO2 and I did want to give him any more dye, so with CO2 I could see filling down to the an kle. It was very poorly visualized in the foot itself, but the peroneal, the below knee pop and sarah va are patent down to the distal calf. I did not think this would be a good candidate for percutan eous intervention given the occlusion right at the knee and we most likely need a stent and I would e nd up having to give him at least a fair amount of dye to get good visualizations as the CO2 just was not adequate for the visualizing below the knee so I did not proceed any further. We then removed a ll the catheter sheaths and wires and held pressure on the left groin, so there was good hemostasis. He tolerated the procedure well without any complications, transferred to recovery room in stable co ndition. He will be on bed rest for 4 hours. He can be discharged home later. He does not have res t pain. He has severe claudication. All discussed with him in the office. We will monitor him clos mckenna over the next few weeks. If he is not able to get around and just cannot tolerate the pain with walking, then I think a fem-pop bypass would be a better option for him and anything percutaneous as this area, I intervened on several times in the past and he has had recurrent stenosis and now it has gone on to occlude. Dictated By: WALTER RICHTER/VIOLET Conf#: [id number] DID#: [id number] CC: DOT ASHLEY MD; JOSE PARRY MD; JOSE HAYES DO;*End*
[2019-02-02] MEDS ORDERED: NA POLYST SULFON 15 GM/60 ML BTL PO ONE (09:30)
[2019-02-02] MEDS: GLYCOPYRROLATE 1 MG TAB PO SCH (10:23)
[2019-02-02] MEDS: ASPIRIN 81 MG TAB PO SCH (10:24)
[2019-02-02] MEDS: ACETYLCYSTEINE 600 MG CAP PO SCH (12:02)
--- NOTE | 2019-02-02 12:07 | CONS ---
Assessment/Plan Assessment/Plan Hospital Course (Demo Recall) Hypertension urgency-resolved Mildly elevated troponin-trending down Acute kidney injury with history of chronic kidney disease Preserved left ventricular ejection fraction Mitral, aortic and tricuspid valve regurgitation Diabetes Peripheral arterial disease Patient presented with symptoms of increased saliva production over the past few months and incidentally found to have elevated blood pressure and elevated troponin. Blood pressure in the emergency was above 190 systolic and on the t elemetry floor systolic 216. Denies any symptoms of chest pain or shortness of breath. Elevated troponin likely secondary to hypertension urgency as well as poor renal function/clearance, and troponins are trending down Blood pressure trend overall improved, titrate meds as needed Peripheral angiogram with occlusion of lower extremity. Given worsening anemia, I am hesitant of adding Plavix. Given normal left ventricular ejection fraction, we could use a trial of cilostazol Consultation Date/Type/Reason Admit Date/Time January 29, 2019 at 10:16 Initial Consult Date Type of Consult Cardiology Date/Time of Note DATE: 02/02/19 TIME: 12:03 24 HR Interval Summary Free Text/Dictation No chest pain, shortness of breath Exam/Review of Systems Vital Signs Vitals Vital Signs Date Temp Pulse Resp B/P (MAP) Pulse Ox O2 O2 Flow FiO2 Time Delivery Rate 02/02/19 76 12:02 02/02/19 98.1 20 143/66 97 11:01 (91) 02/02/19 Room Air 09:29 02/01/19 2.0 20:00 Intake and Output 02/01/19 02/01/19 02/02/19 1515:00 23:00 07:00 IntakeIntake Total 1150 ml 550 ml BalanceBalance 1150 ml 550 ml Exam Constitutional: alert, oriented (No apparent distress) Head: normocephalic Respiratory: other (Coarse breath sounds bilaterally, no wheezing) Cardiovascular: regular rate and rhythm (S1-S2 heard) Gastrointestinal: soft, non-tender, bowel sounds Extremities: edema (Trace) Labs Result Diagram: 02/02/19 0531 02/02/1931 Results 24hrs Laboratory Tests Test 02/01/19 17:08 02/01/19 21:38 02/02/19 05:31 02/02/19 06:05 Bedside Glucose 107 83 95 White Blood Count 6.8 Red Blood Count 2.95 L Hemoglobin 9.0 L Hematocrit 26.5 L Mean Corpuscular 89.8 Volume Mean Corpuscular 30.5 Hemoglobin Mean Corpuscular 34.0 Hemoglobin Concent Red Cell 12.3 Distribution Width Platelet Count 307 Mean Platelet Volume 10.0 Immature 0.400 Granulocytes % Neutrophils % 59.7 Lymphocytes % 24.6 Monocytes % 8.1 Eosinophils % 6.3 Basophils % 0.9 Nucleated Red Blood 0.0 Cells % Immature 0.030 Granulocytes # Neutrophils # 4.1 Lymphocytes # 1.7 Monocytes # 0.6 Eosinophils # 0.4 Basophils # 0.1 Nucleated Red Blood 0.0 Cells # Sodium Level 137 Potassium Level 5.4 H Chloride Level 111 H Carbon Dioxide Level 20 L Anion Gap 6 Blood Urea Nitrogen 53 H Creatinine 3.98 H Est Glomerular 15 L Filtrat Rate mL/min Glucose Level 100 Calcium Level 8.5 Phosphorus Level 4.9 Magnesium Level 2.4 Total Bilirubin 0.3 Direct Bilirubin 0.00 Indirect Bilirubin 0.3 Aspartate Amino 14 L Transf (AST/SGOT) Alanine 14 Aminotransferase (AL T/SGPT) Alkaline Phosphatase 74 Total Protein 5.7 L Albumin 2.9 L Globulin 2.80 Albumin/Globulin 1.03 Ratio Test 02/02/19 10:21 02/02/19 11:55 Bedside Glucose 170 153 Medications Medications Current Medications Ergocalciferol (Drisdol) 50,000 unit We@0900 PO ; Start 02/04/19 at 09:00 Glycopyrrolate (Robinul) 1 mg BID PO Last administered on 02/02/19at 10:23; Admin Dose 1 MG; Start 01/29/19 at 13:00 Miscellaneous Information 1.5 mg Q SUN SQ ; Start 01/29/19 at 13:00; Status UNV IV Flush (NS 3 ml) 3 ml PER PROTOCOL IV ; Start 01/29/19 at 13:30 Acetaminophen (Tylenol Tab) 650 mg Q6H PRN PO .PAIN 1-3 OR TEMP; Start 01/29/19 at 13:30 Heparin Sodium (Porcine) (Heparin (5000 Units/1ml)) 5,000 unit Q12 SC Last administered on 02/01/19at 21:52; Admin Dose 5,000 UNIT; Start 01/29/19 at 21:00 Insulin Aspart (Novolog Insulin Pen) NOVOLOG *MILD* ALGORITHM WITH MEALS BEDTIME SC ; Start 01/29/19 at 17:55 Miscellaneous Information 1 ea NOTE XX ; Start 01/29/19 at 13:30 Glucose (Glutose) 15 gm Q15M PRN PO DECREASED GLUCOSE; Start 01/29/19 at 13:30 Glucose (Glutose) 22.5 gm Q15M PRN PO DECREASED GLUCOSE; Start 01/29/19 at 13:30 Dextrose (D50w Syringe) 25 ml Q15M PRN IV DECREASED GLUCOSE; Start 01/29/19 at 13:30 Dextrose (D50w Syringe) 50 ml Q15M PRN IV DECREASED GLUCOSE; Start 01/29/19 at 13:30 Glucagon (Glucagen) 1 mg Q15M PRN IM DECREASED GLUCOSE; Start 01/29/19 at 13:30 Glucose (Glutose) 15 gm Q15M PRN BUCCAL DECREASED GLUCOSE; Start 01/29/19 at 13:30 Metoclopramide HCl (Reglan) 5 mg AC BREAKFAST DINNER PO Last administered on 02/01/19at 17:09; Admin Dose 5 MG; Start 01/29/19 at 17:25 Ondansetron HCl (Zofran Inj) 4 mg Q4H PRN IV NAUSEA AND/OR VOMITING; Start 01/29/19 at 14:00 Atorvastatin Calcium (Lipitor) 40 mg HS PO Last administered on 02/01/19at 21:40; Admin Dose 40 MG; Start 01/29/19 at 21:00 Aspirin (Aspirin) 81 mg DAILY PO Last administered on 02/02/19at 10:24; Admin Dose 81 MG; Start 01/30/19 at 09:00 Hydralazine HCl (Apresoline) 20 mg Q6 PRN IV SBP>170; Start 01/29/19 at 19:00 Miscellaneous Information (*Order Clarification Bulletin) TRULICITY IS NON FORMULARY ITEM...PLE... Q8H XX ; Start 01/30/19 at 19:00 Carvedilol (Coreg) 12.5 mg BID PO Last administered on 02/02/19at 10:24; Admin Dose 12.5 MG; Start 01/31/19 at 21:00 Acetylcysteine (Nac) 1,200 mg BID PO Last administered on 02/01/19at 21:40; Admin Dose 1,200 MG; Start 01/31/19 at 11:00; Stop 02/04/19 at 10:59 Amlodipine Besylate (Norvasc) 2.5 mg QHS PO Last administered on 02/01/19at 21:41; Admin Dose 2.5 MG; Start 02/01/19 at 21:00 Alfuzosin HCl (Uroxatral) 10 mg HS PO Last administered on 02/01/19at 21:40; Admin Dose 10 MG; Start 02/01/19 at 21:00 Ranitidine HCl (Zantac) 150 mg DAILY PO Last administered on 02/02/19at 10:23; Admin Dose 150 MG; Start 02/02/19 at 09:00 Epoetin Joseph-epbx (Retacrit (Esrd)) 10,000 unit MoWeFr@1700 SC ; Start 02/02/19 at 17:00 Michele Richard DO February 02, 2019 12:06
[2019-02-02] MEDS ORDERED: CILOSTAZOL 100 MG TAB PO SCH (13:30)
--- NOTE | 2019-02-02 13:46 | DS ---
Date/Time of Note Date/Time of Note DATE: 02/02/19 TIME: 13:36 Discharge Summary Admission/Discharge Info Admit Date/Time January 29, 2019 at 10:16 Discharge Date/Time 02/02/2019 @ 1500 Discharge Diagnosis Elevated troponin, severe peripheral vascular disease Patient Condition: Fair Consults Bernice, nephrology; Jose Manuel, cardiology; Carlos Enrique, vascular surgery Procedures ECHOcardiogram: Normal left ventricular systolic function. Normal left ventric ular cavity size. Mild concentric left ventricular hypertrophy. Ejection fraction is visually estimated at 60 %. Tissue Doppler/Mitral Doppler indices are consistent with impaired relaxation (Stage I diastolic dysfunction). Normal right ventricular size. Normal right ventricular systolic function. The left atrium is normal in size. The right atrium is normal in size. Mild mi tral valve regurgitation. No hemodynamically significant aortic stenosis by doppler. Mild aortic valve regurgitation. There is mild tricuspid regurgitation. Normal pericardium with no significant pericardial effusion. BLE venous duplex: No sonographic evidence for deep venous thrombosis. BLE arterial duplex: 1. Occluded right popliteal artery with collateral flow distally. 2. Monophasic waveforms in the left posterior tibial artery and dorsalis pedis artery consistent with a significant left infrapopliteal stenosis. 3. Severely reduced bilateral lower extremity ABIs. Renal ultrasound: Slightly echogenic kidneys, consistent with medical renal disease. No evidence of hydronephrosis. CO2 angiogram BLE: The infrarenal aorta; both common and external iliac arteries are widely patent. The internal iliac arteries are diffusely diseased. Both common femoral arteries are widely patent. The right superficial and profunda femoral arteries are widely patent. The right popliteal artery is patent without any disease and then right at the knee is complete occlusion and there is a large geniculate collateral that cr osses that comes around the area of occlusion, refills the below knee pop. The length of the occlusion is probably only 2 to 3 cm in length, below knee pop is patent. There is a huge caliber difference between the above and below knee pop. It is like twice as big above the knee than below and then there is a single vessel runoff below the knee via the peroneal. The posterior tibial and anterior tibial arteries are both occluded. I could not really visualize the foot with CO2 and I did want to give him any more dye, so with CO2 I could see filling down to the ankle. It was very poorly visualized in the foot itself, but the peroneal, the below knee pop and peroneal are patent down to the distal calf. Hx of Present Illness 68 y/o H M relatively new to my practice for last 4 m. Pt. w/ h/o T2DM, PVD s/p toe amputations, HTN, recently discovered to have later-stage CKD, and hyperlipidemia. Pt. w/ chronic complaints of increased salivary production. Has been given trial of glycopyrrolate which was not effective and referred to ENT who treated w/ clotrimazole lozenges which was marginally effective. Pt. reports that for last 3 days has been unable to sleep due to increased salivary production which he associates w/ nausea and vomiting of stomach acid. No appetite. Pt. also c/o RLE pain although had already been ruled out for DVT. Came to ER early this am due to 3rd night of no sleep due to his symptoms. In ER had elevated BP but was found to have elevated troponin at 0.37. Admitted f or r/o NSTEMI. Hospital Course Pt. admitted and evaluated by nephrology and cardiology. Had ECHO that did not show any significant disease. Troponin elevation was felt to be due to hypertensive urgency in the setting of CKD. Pt. placed on PPI plus reglan which alleviated his salivary issues. Pt. had vascular eval of lower extremities which showed occluded R popliteal artery. Had eval by vascular surgery and CO2 angiogram today confirming this. Pt. has reached new baseline on serum creatinine and will need to follow-up with nephrology. Will see vascular surgery in their offices and try conservative management for PVD. If ineffective, however, will likely need Fem-Pop bypass grafting in the future. Home Meds Reported Medications Glycopyrrolate* (Glycopyrrolate*) 1 Mg Tablet, 1 MG PO BID, TAB 01/29/19 Ranitidine Hcl* (Ranitidine Hcl*) 150 Mg Tablet, 150 MG PO Q12, #60 TAB 01/29/19 Amlodipine Besylate* (Norvasc*) 5 Mg Tablet, 5 MG PO DAILY, TAB 01/29/19 Metoprolol Succinate* (Toprol XL*) 100 Mg Tab.sr.24h, 100 MG PO DAILY, #30 TAB 01/29/19 Ergocalciferol (Vitamin D2) (VITAMIN D2) 50,000 Unit Capsule, 21818 UNIT PO Q FRI, CAP 01/29/19 Atorvastatin* (Atorvastatin*) 40 Mg Tablet, 40 MG PO QHS, #30 TAB 01/29/19 Dulaglutide (Trulicity) 1.5 Mg/0.5 Ml Pen.injctr, 1.5 MG SQ Q SUN 01/29/19 Discontinued Reported Medications Levofloxacin* (Levaquin*) 500 Mg Tablet, 500 MG PO DAILY, TAB STARTED 02-04-18 FOR 10 DAYS 02/12/18 Amlodipine Besylate* (Norvasc*) 5 Mg Tablet, 5 MG PO DAILY, TAB 02/12/18 Insulin Detemir (Levemir Flextouch) 100 Unit/1 Ml Insuln.pen, 0 SQ QAM SLIDING SCALE 02/12/18 Follow-up Plan f/u w/ Dr. Monaco in 2 days; f/u w/ Dr. Queen in 1 week; f/u w/ Dr. Mtz as scheduled or sooner prn. Primary Care Provider Michele Mtz MD Time spent on discharge: > 30 minutes Pending Labs Laboratory Tests Test 02/01/19 17:08 02/01/19 21:38 02/02/19 05:31 02/02/19 06:05 Bedside 107 83 95 Glucose mg/dL (70-220) mg/dL (70-220) mg/dL (70-220) White Blood 6.8 Count 10^3/ul (4.8-1 0.8) Red Blood 2.95 Count 10^6/ul (4.70- 6.10) Hemoglobin 9.0 g/dl (14.0-18. 0) Hematocrit 26.5 % (42.0-52.0) Mean 89.8 Corpuscular fl (82.0-101.0 Volume ) Mean 30.5 Corpuscular pg (29.0-33.0) Hemoglobin Mean 34.0 Corpuscular g/dl (32.0-37. Hemoglobin Conc 0) ent Red Cell 12.3 Distribution % (11.5-14.5) Width Platelet Count 307 10^3/UL (140-4 15) Mean Platelet 10.0 Volume fl (7.4-10.4) Immature 0.400 Granulocytes % % (0.001-0.429 ) Neutrophils % 59.7 % (39.0-77.0) Lymphocytes % 24.6 % (15.0-51.0) Monocytes % 8.1 % (0.0-11.0) Eosinophils % 6.3 % (0.0-7.0) Basophils % 0.9 % (0.0-2.0) Nucleated Red 0.0 Blood Cells % /100WBC (0.0-0 .0) Immature 0.030 Granulocytes # 10^3/ul (0.0-0 .031) Neutrophils # 4.1 10^3/ul (1.6-7 .5) Lymphocytes # 1.7 10^3/ul (0.8-2 .9) Monocytes # 0.6 10^3/ul (0.3-0 .9) Eosinophils # 0.4 10^3/ul (0.0-0 .5) Basophils # 0.1 10^3/ul (0.0-0 .1) Nucleated Red 0.0 Blood Cells # 10^3/ul (0.0-0 .0) Sodium Level 137 mmol/L (135-14 4) Potassium 5.4 Level mmol/L (3.5-5. 1) Chloride Level 111 mmol/L (97-110 ) Carbon Dioxide 20 Level mmol/L (21-31) Anion Gap 6 (5-13) Blood Urea 53 Nitrogen mg/dl (7-20) Creatinine 3.98 mg/dl (0.61-1. 24) Est Glomerular 15 Filtrat mL/min (>60) Rate mL/min Glucose Level 100 mg/dl (70-220) Calcium Level 8.5 mg/dl (8.4-10. 2) Phosphorus 4.9 Level mg/dl (2.5-4.9 ) Magnesium 2.4 Level mg/dl (1.7-2.5 ) Total 0.3 Bilirubin mg/dl (0.2-1.3 ) Direct 0.00 Bilirubin mg/dl (0.00-0. 20) Indirect 0.3 Bilirubin mg/dl (0-1.1) Aspartate Amino 14 Transf (AST/SGO IU/L (15-46) T) Alanine 14 Aminotransferas IU/L (13-69) e (ALT/SGPT) Alkaline 74 Phosphatase IU/L (42-121) Total Protein 5.7 g/dl (6.1-8.1) Albumin 2.9 g/dl (3.3-4.9) Globulin 2.80 g/dl (1.3-3.2) Albumin/Globuli 1.03 n Ratio Test 02/02/19 10:21 02/02/19 11:55 Bedside 170 153 Glucose mg/dL (70-220) mg/dL (70-220) MICHELE MTZ MD February 02, 2019 13:46
--- NOTE | 2019-02-02 13:47 | PDOCDIS ---
Discharge Instructions DIAGNOSIS Discharge Diagnosis Elevated troponin, severe peripheral vascular disease CONDITION [id number] Patient Condition: Gmmip4s Fair HOME CARE INSTRUCTIONS: [id number] Diet Instructions: [id number] carb-controlled, renal diet ACTIVITY: [id number] Activity Restrictions: [id number] No Restrictions [id number] Bathing Restrictions: [id number] Shower FOLLOW UP/APPOINTMENTS Follow-up Plan f/u w/ Dr. Monaco in 2 days; f/u w/ Dr. Queen in 1 week; f/u w/ Dr. Mtz as scheduled or sooner prn. JOSE MTZ MD February 02, 2019 13:47
[2019-02-02] MEDS ORDERED: CILO100T PO (13:52)
[2019-02-02] MEDS ORDERED: CARV12.579 PO (13:52)
[2019-02-02] MEDS ORDERED: RANI150T5 PO (13:52)
[2019-02-02] MEDS ORDERED: METO5TAB2 PO (13:52)
[2019-02-02] MEDS ORDERED: ALFU10TA2 PO (13:52)
[2019-02-02] MEDS ORDERED: EPOETIN ALFA-EPBX (ESRD) 10,000 UNIT/ML VIAL SC SCH (17:00)
[2019-02-04] MEDS ORDERED: ERGOCALCIFEROL 50,000 UNIT CAP PO SCH (09:00)
== END 2019-02-02 17:49 | disposition home or self-care (01) | DRG 280 ==
LOC: E/R 07:50 → EDBEDREQSVC 09:42 → TEL 10:16
PROVIDERS: ADMIT Internal Medicine; ATTEND Internal Medicine
PROC: B410YZZ Fluoroscopy of Abdominal Aorta using Other Contrast (ICD-10-PCS; principal; 2019-02-02 07:30)
PROC: B41FYZZ Fluoroscopy of Right Lower Extremity Arteries using Other Contrast (ICD-10-PCS; 2019-02-02 07:30)
DX: E11.51 Type 2 diabetes mellitus with diabetic peripheral angiopathy without gangrene (principal); I21.4 Non-ST elevation (NSTEMI) myocardial infarction; N17.0 Acute kidney failure with tubular necrosis; N18.4 Chronic kidney disease, stage 4 (severe); I70.211 Atherosclerosis of native arteries of extremities with intermittent claudication, right leg; I16.0 Hypertensive urgency; I12.9 Hypertensive chronic kidney disease with stage 1 through stage 4 chronic kidney disease, or unspecified chronic kidney disease; E11.22 Type 2 diabetes mellitus with diabetic chronic kidney disease; K11.7 Disturbances of salivary secretion; E78.5 Hyperlipidemia, unspecified; E55.9 Vitamin D deficiency, unspecified; E78.00 Pure hypercholesterolemia, unspecified; I08.3 Combined rheumatic disorders of mitral, aortic and tricuspid valves; D63.1 Anemia in chronic kidney disease; Z79.4 Long term (current) use of insulin; Z87.891 Personal history of nicotine dependence; Z89.421 Acquired absence of other right toe(s); Z89.412 Acquired absence of left great toe
CPT/HCPCS: 36246; 71045; 75630; 75710; 76775; 80048; 80053; 81001; 81003; 82550; 82553; 82570; 82607; 82728; 82962; 83036; 83540; 83690; 83735; 83880; 84100; 84132; 84155; 84300; 84484; 85025; 85610; 85730; 86021; 86038; 86160; 86162; 86320; 86325; 93005; 93306; 93922; 93970; 93976; 96374; C1887; C1894; J0360; J1644; J1815; J2250; J2405; J3010; J7030; Q5105; Q9967

== ENCOUNTER 2019-03-14 18:16 | Inpatient (IN) | payer MEDICARE, OTHER ==
[~2019-03-14] VITALS: Ht 167.6 cm; Wt 67.0 kg
[~2019-03-14 18:16] MED LIST changes: +ALFU10TA2 PO; +ATOR40TA68 PO; +CARV12.579 PO; +CILO100T PO; +DULA1.5P SQ; +ERGO500013 PO; +GLYC1TAB PO; -INSU100I27 SQ; -LEVO500T48 PO; +METO5TAB2 PO; +RANI150T5 PO
[2019-03-14] MEDS ORDERED: SODIUM CHLORIDE 0.9% 1L BAG IV* STA (19:55)
[2019-03-14] MEDS ORDERED: CEFEPIME 2GM/50 ML (PMX) 50 ML IVPB STA (19:55)
[2019-03-14] MEDS ORDERED: VANCOMYCIN 1 GM (PMX) 250 ML IVPB ONE (20:00)
[2019-03-14] MEDS ORDERED: morphine 10 MG INJ IV ONE (21:00)
[2019-03-14] MEDS ORDERED: ONDANSETRON 4 MG INJ IV STA (22:05)
[2019-03-14] MEDS ORDERED: ONDANSETRON 4 MG INJ IV PRN (22:30)
[2019-03-14] MEDS ORDERED: ACETAMINOPHEN 325 MG TAB PO PRN (22:30)
[2019-03-14] MEDS ORDERED: ONDANSETRON 4 MG TAB PO PRN (23:00)
[2019-03-14] MEDS ORDERED: NACL 0.9% 3 ML SYG IV SCH (23:00)
[2019-03-14] MEDS ORDERED: ERGOCALCIFEROL 50,000 UNIT CAP PO SCH (23:00)
[2019-03-14] MEDS ORDERED: MAGNESIUM HYDROXIDE 30ML CUP PO PRN (23:00)
[2019-03-14] MEDS ORDERED: DOCUSATE SODIUM 100 MG CAP PO PRN (23:00)
[2019-03-14] MEDS ORDERED: HYDROCODONE/APAP (5/325) TAB PO PRN (23:00)
[2019-03-14] MEDS ORDERED: ZOLPIDEM 5 MG TAB PO PRN (23:00)
[2019-03-14] MEDS ORDERED: NA PHOSPHATE/BIPHOS 133 ML ENEMA PR PRN (23:00)
--- NOTE | 2019-03-14 23:17 | ERD ---
ER Documentation Chief Complaint Chief Complaint diabetic foot ulcer more painful now, also c/o excessive salivation HPI 68-year-old male with a history of diabetes presenting with right foot pain. He states that 2 weeks ago he is toe on an object. He had a wound there that seems to have gotten infected. With the last day, he has had severely worsening pain in his right foot with associated fevers and chills. He was seen by his primary care doctor a few days ago but stated at that time he did not have any signs of infection and did not need antibiotics. He has known history of peripheral arterial disease and has seen vascular surgeon, Dr. Monaco, and arterial bypass was recommended. He was supposed to follow-up next week with the vascular surgeon. He is denying any chest pain or shortness of breath. He has right fo ot pain that is a 10 out of 10, throbbing and aching, with no alleviating factors. Exacerbated by touch and walking. ROS All systems reviewed and are negative except as per history of present illness. Medications Home Meds Active Scripts Ranitidine Hcl* (Ranitidine Hcl*) 150 Mg Tablet, 150 MG PO DAILY for 30 Days, #30 TAB 5 Refills Prov:JOSE PARRY MD 02/02/19 Metoclopramide Hcl* (Metoclopramide Hcl*) 5 Mg Tablet, 5 MG PO AC MEALS for 30 Days, #90 TAB 5 Refills Prov:JOSE PARRY MD 02/02/19 Carvedilol* (Carvedilol*) 12.5 Mg Tablet, 12.5 MG PO BID for 30 Days, #60 TAB 5 Refills Prov:JOSE PARRY MD 02/02/19 Cilostazol* (Cilostazol*) 100 Mg Tablet, 50 MG PO BID for 30 Days, #30 TAB 5 Refills Prov:JOSE PARRY MD 02/02/19 Alfuzosin Hcl* (Alfuzosin Hcl*) 10 Mg Tab.er.24h, 10 MG PO HS for 30 Days, #30 TAB 5 Refills Prov:JOSE PARRY MD 02/02/19 Reported Medications Glycopyrrolate* (Glycopyrrolate*) 1 Mg Tablet, 1 MG PO BID, TAB 01/29/19 Amlodipine Besylate* (Norvasc*) 5 Mg Tablet, 5 MG PO DAILY, TAB 01/29/19 Ergocalciferol (Vitamin D2) (VITAMIN D2) 50,000 Unit Capsule, 96614 UNIT PO Q FRI, CAP 01/29/19 Atorvastatin* (Atorvastatin*) 40 Mg Tablet, 40 MG PO QHS, #30 TAB 01/29/19 Dulaglutide (Trulicity) 1.5 Mg/0.5 Ml Pen.injctr, 1.5 MG SQ Q SUN 01/29/19 Allergies Allergies: Coded Allergies: No Known Allergy (Unverified , 01/29/19) PMhx/Soc History of Surgery: Yes (amputation toe right and left feet) Anesthesia Reaction: No Hx Neurological Disorder: No Hx Respiratory Disorders: No Hx Cardiac Disorders: Yes (htn) Hx Psychiatric Problems: No Hx Miscellaneous Medical Probl: Yes (Diabetes) Hx Alcohol Use: No Hx Substance Use: No Hx Tobacco Use: No Smoking Status: Never smoker FmHx Family History: diabetes Physical Exam Vitals Vital Signs Date Temp Pulse Resp B/P (MAP) Pulse Ox O2 O2 Flow FiO2 Time Delivery Rate 03/14/19 99 15 153/80 93 Room Air 23:30 (104) 03/14/19 101 17 158/78 94 Room Air 23:00 (104) 03/14/19 99.5 99 13 145/68 93 Room Air 22:30 (93) 03/14/19 103 17 156/74 99 Room Air 22:00 (101) 03/14/19 98 15 149/75 96 Room Air 21:30 (99) 03/14/19 100 14 152/74 98 Room Air 21:00 (100) 03/14/19 102 20 180/81 99 Room Air 20:30 (114) 03/14/19 96 12 192/87 98 Room Air 20:15 (122) 03/14/19 Nasal 19:57 Cannula 03/14/19 100.8 105 19:47 03/14/19 100.0 100 18 153/75 98 18:26 (101) Physical Exam Const: No acute distress, nontoxic Head: Atraumatic Eyes: Normal Conjunctiva ENT: Normal External Ears, Nose and Mouth. Neck: Full range of motion. No meningismus. Resp: Clear to auscultation bilaterally Cardio: Regular rate and rhythm, no murmurs Abd: Soft, non tender, non distended. Normal bowel sounds Skin: No petechiae or rashes Back: No midline or flank tenderness Ext: Left lower extremity without edema, cyanosis, or evidence of wounds. Toe amputation noted. Right lower extremity with dusky discoloration and both dry and wet gangrene of the first, second, and third toes extending to the forefoot. Tenderness to palpation with light touch of the right forefoot. Mild erythema of the dorsum of the foot. Faint DP and PT pulses bilaterally. Neur: Awake and alert Psych: Normal Mood and Affect Result Diagram: 03/14/19199903/14/191999 Results 24 hrs Laboratory Tests Test 03/14/19 19:12 03/14/19 20:00 03/14/19 20:02 03/14/19 22:10 Bedside Glucose 136 mg/dL White Blood Count 18.9 10^3/ul Red Blood Count 3.14 10^6/ul Hemoglobin 9.4 g/dl Hematocrit 27.3 % Mean Corpuscular 86.9 fl Volume Mean Corpuscular 29.9 pg Hemoglobin Mean Corpuscular 34.4 g/dl Hemoglobin Concent Red Cell 11.9 % Distribution Width Platelet Count 462 10^3/UL Mean Platelet 9.5 fl Volume Immature 0.800 % Granulocytes % Neutrophils % 80.4 % Lymphocytes % 10.3 % Monocytes % 7.8 % Eosinophils % 0.4 % Basophils % 0.3 % Nucleated Red Blood 0.0 /100WBC Cells % Immature 0.150 10^3/ul Granulocytes # Neutrophils # 15.2 10^3/ul Lymphocytes # 2.0 10^3/ul Monocytes # 1.5 10^3/ul Eosinophils # 0.1 10^3/ul Basophils # 0.1 10^3/ul Nucleated Red Blood 0.0 10^3/ul Cells # Prothrombin Time 15.1 Sec Prothrombin Time 1.2 Ratio INR International 1.18 Normalized Ratio Activated 48.0 Sec Partial Thromboplas t Time Sodium Level 134 mmol/L Potassium Level 4.6 mmol/L Chloride Level 101 mmol/L Carbon Dioxide 22 mmol/L Level Anion Gap 11 Blood Urea Nitrogen 44 mg/dl Creatinine 4.38 mg/dl Est Glomerular 13 mL/min Filtrat Rate mL/min Glucose Level 130 mg/dl Calcium Level 8.5 mg/dl Total Bilirubin 0.3 mg/dl Direct Bilirubin 0.00 mg/dl Indirect Bilirubin 0.3 mg/dl Aspartate Amino 19 IU/L Transf (AST/SGOT) Alanine 6 IU/L Aminotransferase (A LT/SGPT) Alkaline 92 IU/L Phosphatase Troponin I 0.052 ng/ml Total Protein 7.0 g/dl Albumin 3.4 g/dl Globulin 3.60 g/dl Albumin/Globulin 0.94 Ratio POC Venous Lactate 1.1 mmol/L Lactic Acid Level 1.2 mmol/L Test 03/14/19 23:58 Lactic Acid Level 1.1 mmol/L Current Medications Medications Dose Sig/Agustin Start Time Status Last (Trade) Ordered Route PRN Stop Time Admin Dose Reason Admin Sodium 2,010 ml BOLUS OVER 2 03/14/19 DC 03/14/19 Chloride HOURS STAT 19:55 20:15 (NS) IV* 03/14/19 19:57 Cefepime HCl 50 ml @ ONCE STAT 03/14/19 DC 03/14/19 100 mls/hr IVPB 19:55 20:20 03/14/19 20:24 Vancomycin 250 ml @ ONCE ONCE 03/14/19 DC 03/14/19 HCl 125 mls/hr IVPB 20:00 20:58 03/14/19 21:59 Morphine 6 mg ONCE ONCE 03/14/19 DC 03/14/19 Sulfate IV 21:00 20:54 (morphine) 03/14/19 21:01 Ondansetron 4 mg ONCE STAT 03/14/19 DC 03/14/19 HCl (Zofran IV 22:05 22:21 Inj) 03/14/19 22:06 Ondansetron 4 mg BRIDGE ORDER 03/14/19 HCl (Zofran PRN IV 22:30 Inj) NAUSEA/VOMITI 03/15/19 22:29 NG 650 mg ER BRIDGE 03/14/19 Acetaminophen PRN PO 22:30 (Tylenol .MILD PAIN 03/15/19 22:29 Tab) 1-3 OR TEMP IV Flush 3 ml PER 03/14/19 (NS 3 ml) PROTOCOL IV 23:00 Ondansetron 4 mg Q6H PRN 03/14/19 HCl (Zofran PO 23:00 Tab) NAUSEA/VOMITI NG 1 tab Q6H PRN 03/14/19 Acetaminophen PO .MOD PAIN 23:00 / 4-6 Hydrocodone Bitart ([place] (5/325)) 2 tab Q6H PRN 03/14/19 03/15/19 Acetaminophen PO .SEVERE 23:00 00:09 / PAIN 7-10 Hydrocodone Bitart ([place] (5/325)) Docusate 100 mg Q12H PRN 03/14/19 Sodium PO 23:00 (Colace) .CONSTIPATION Magnesium 30 ml DAILY PRN 03/14/19 Hydroxide PO 23:00 (Milk Of Mag) .CONSTIPATION Sodium 133 ml DAILY PRN 03/14/19 Biphosphate/ DE 23:00 Sodium .CONSTIPATION Phosphate (Fleet Enema) Zolpidem 5 mg QHS PRN 03/14/19 Tartrate PO .INSOMNIA 23:00 (Ambien) Famotidine 20 mg DAILY PO 03/15/19 (Pepcid) 09:00 Enoxaparin 40 mg DAILY SC 03/15/19 Sodium 09:00 (Lovenox) Alfuzosin 10 mg HS PO 03/15/19 HCl 21:00 (Uroxatral) Amlodipine 5 mg DAILY PO 03/15/19 Besylate 09:00 (Norvasc) 40 mg QHS PO 03/15/19 Atorvastatin 21:00 Calcium (Lipitor) Carvedilol 12.5 mg BID PO 03/15/19 (Coreg) 09:00 Cilostazol 50 mg BID PO 03/15/19 (Pletal) 09:00 50,000 unit ONCE PO 03/14/19 03/15/19 Ergocalcifero 23:00 01:06 l (Drisdol) 03/15/19 04:00 1 mg BID PO 03/15/19 Glycopyrrolat 09:00 e (Robinul) 5 mg AC MEALS 03/15/19 Metoclopramid PO 07:00 e HCl (Reglan) Linagliptin 5 mg DAILY PO 03/15/19 (Tradjenta) 09:00 Diagnostic 1 ea AC MEALS AND 03/15/19 Test (Pha) BEDTIME XX 07:00 (Accu-Chek) Vancomycin VANCOMYCIN PER 03/14/19 HCl (Vanco PER PHARMACY PROTOCOL XX 23:30 Iv Per Pharmacy) Piperacillin 100 ml @ Q8 IVPB 03/15/19 DC Sod/ 200 mls/hr 06:00 Tazobactam 03/15/19 06:00 Sod Piperacillin 50 ml @ Q12H IVPB 03/15/19 Sod/ 100 mls/hr 06:00 Tazobactam Sod Vancomycin 100 ml @ ONCE ONCE 03/15/19 DC HCl 100 mls/hr IVPB 00:00 03/15/19 00:59 VANCO 0500 ONCE 03/16/19 Miscellaneous RANDOM XX 05:00 03/16/19 05:01 Information (*Rx Drug Level Order Reminder*) Procedures/MDM EMERGENT LABS AND DIAGNOSTIC STUDIES: Lab Results above were reviewed and interpreted by me. CBC: Leukocytosis, concerning for infection with thrombocytosis. Mild anemia CMP: Elevated BUN and creatinine, consistent with chronic kidney disease. No e/o clinically significant electrolyte abnormality severe acidosis, alkalosis, diabetic ketoacidosis Troponin within normal limits, not indicative of cardiac ischemia Lactate within normal limits without evidence of sepsis or tissue hypoperfusion 12-lead EKG was interpreted by Marzena Waldron MD: Normal Sinus Rhythm with ventricular rate of 96 beats per minute Normal axis Normal intervals No acute ST or T wave changes suggestive of acute ischemia or STEMI. Radiology Results as interpreted by Radiology below were reviewed by Miil Waldron MD: Chest x-ray shows no acute abnormalities Initial Nursing notes reviewed. Previous Medical Records requested via the Electronic Health Record. EMERGENCY DEPARTMENT COURSE / MEDICAL DECISION MAKING: Admit MDM: Patient presenting with right foot infection and both dry and wet gangrene. Sepsis work-up was initiated and broad-spectrum antibiotics given. Patient's infectious symptoms have not stabilized, and the patient is at risk of rapid decompensation. The patient will be admitted for careful hydration, antibiotic therapy, and infectious source control. Severe Sepsis criteria: Infectious source: Right foot infection End organ damage indicated by: [employer] L[employer] > 2.0 Sepsis Management: Time of recognition of severe sepsis: 19:555 Within 3 hours of recognition: Blood cultures x 2 before broad-spectrum antibiotics: Yes 30 ml/kg NS bolus Completed Initial lactate normal Repeat lactate normal Septic Shock Assessment: Any lactic acid > 4.0 no Persistent hypotension (SBP < 90 or 40 mmHg drop, MAP < 65) despite 30 mL/kg IV fluid bolus No Accepting Care Team Current data and ongoing care discussed. Admitting Physician: Dr. Cope Internship(s): Outstanding Data: Cultures Critical Care Time: 35 minutes Treatments/Evaluations: Close monitoring and treatment of unstable vital signs, cardiorespiratory, and neurologic status, while maintaining tight balance of fluid, respiratory, and cardiac interventions. This includes the administration of emergency fluid management while maintaining close respiratory support as well as the provision of immediate and broad-spectrum antibiotic therapy, while performing a simultaneous assessment for possible sources in order to direct targeted therapy. This time includes discussing the case with the patient and the patients family.This time also includes the consideration for invasive and chemical support to prevent cardiopulmonary collapse. This time does not include all procedures stated elsewhere in this record. This time also includes reviewing old records, labs and radiological studies. This time includes examining and reexamining the patient. Additionally, this time also includes arranging care with admitting and consulting physicians. Departure Diagnosis: Primary Impression: Sepsis Sepsis type: sepsis due to unspecified organism Qualified Codes: A41.9 - Sepsis, unspecified organism Additional Impressions: Gangrene of toe of right foot Cellulitis of right foot Vascular insufficiency of extremity Chronic kidney disease, stage IV (severe) Condition: Serious BENI WALDRON MD Mar 14, 2019 23:17
[2019-03-14] MEDS ORDERED: VANCOMYCIN IV PER PHARMACY XX SCH (23:30)
[2019-03-15] MEDS ORDERED: VANCOMYCIN 500 MG (PMX) 100 ML IVPB ONE
[2019-03-15] MEDS: HYDROCODONE/APAP (5/325) TAB PO PRN (00:09)
[2019-03-15 03:14] VITALS: Ht 167.6 cm; Wt 67.0 kg
[2019-03-15 04:00] VITALS: BP 147/69; PULSE 96; RESP 18
[2019-03-15] MEDS ORDERED: PIPER-TAZO 3.375 GM IV (PMX) 100 ML IVPB SCH (06:00)
[2019-03-15] MEDS: PIPER-TAZO 2.25 GM/NS 50 ML IVPB SCH ×2 (06:18→17:34)
[2019-03-15] MEDS: ACCU-CHEK XX SCH ×4 (07:00→21:00)
[2019-03-15 07:54] VITALS: BP 158/73; PULSE 89; RESP 18
[2019-03-15] MEDS: CILOSTAZOL 100 MG TAB PO SCH ×2 (10:33→22:25)
[2019-03-15] MEDS: GLYCOPYRROLATE 1 MG TAB PO SCH ×2 (10:33→22:24)
[2019-03-15] MEDS: METOCLOPRAMIDE 5 MG TAB PO SCH ×3 (10:33→17:34)
[2019-03-15] MEDS: AMLODIPINE 5 MG TAB PO SCH (10:34)
[2019-03-15] MEDS: LINAGLIPTIN 5 MG TABLET PO SCH (10:34)
[2019-03-15] MEDS: FAMOTIDINE 20 MG TAB PO SCH (10:34)
[2019-03-15] MEDS: ENOXAPARIN 40 MG/0.4 ML SYG SC SCH (11:02)
[2019-03-15 14:51] VITALS: BP 113/57; PULSE 81; RESP 17
--- NOTE | 2019-03-15 15:12 | HP ---
Date/Time of Note Date/Time of Note DATE: 03/15/19 TIME: 14:33 Assessment/Plan VTE Prophylaxis Risk score (from Ns)>0 risk: 4 SCD applied (from [facility]): No SCD contraindicated: other Pharmacological prophylaxis: heparin Lines/Catheters IV Catheter Type (from [facility]): Saline Lock Central line still needed: No Urinary Cath still in place: No Assessment/Plan Problems: (1) Gangrene of toe of right foot Status: Acute Comment: Vascular and Podiatry consults: Contact Dr. Monaco and Dr. Caal. Pain management and antibiotic therapy. Wound care consult. (2) Vascular insufficiency of extremity Status: Acute Comment: Possible bypass graft to be determined by Dr. Monaco (3) Peripheral vascular disease of lower extremity Status: Chronic Comment: Possible bypass graft to be determined by Dr. Monaco (4) Diabetes, polyneuropathy Status: Chronic Comment: Decent glycemic control. No GLP1 available on formulary so will change to DPP4 inhibitor. (5) Essential (primary) hypertension Status: Chronic Comment: Fair control. Will monitor (6) Disturbance of salivary secretion Status: Chronic Comment: perhaps related to alfuzosin. Will further investigate. (7) Chronic kidney disease, stage IV (severe) Status: Chronic (8) Hyperlipidemia Status: Chronic Comment: continue lipid lowering agent (9) Anemia Status: Chronic Comment: May be of chronic nature or acute on chronic. Given potential for surgical intervention will type and cross and hold pending decision to take patient to surgery. Result Diagram: 03/15/19 0453 03/15/19 0453 Results 24hrs Laboratory Tests Test 03/14/19 19:12 03/14/19 20:00 03/14/19 20:02 03/14/19 22:10 Bedside Glucose 136 White Blood Count 18.9 #H Red Blood Count 3.14 L Hemoglobin 9.4 L Hematocrit 27.3 L Mean Corpuscular 86.9 Volume Mean Corpuscular 29.9 Hemoglobin Mean Corpuscular 34.4 Hemoglobin Concent Red Cell 11.9 Distribution Width Platelet Count 462 #H Mean Platelet Volume 9.5 Immature 0.800 H Granulocytes % Neutrophils % 80.4 H Lymphocytes % 10.3 L Monocytes % 7.8 Eosinophils % 0.4 Basophils % 0.3 Nucleated Red Blood 0.0 Cells % Immature 0.150 H Granulocytes # Neutrophils # 15.2 H Lymphocytes # 2.0 Monocytes # 1.5 H Eosinophils # 0.1 Basophils # 0.1 Nucleated Red Blood 0.0 Cells # Prothrombin Time 15.1 H Prothrombin Time 1.2 Ratio INR International 1.18 Normalized Ratio Activated 48.0 H Partial Thromboplast Time Sodium Level 134 L Potassium Level 4.6 Chloride Level 101 Carbon Dioxide Level 22 Anion Gap 11 Blood Urea Nitrogen 44 H Creatinine 4.38 H Est Glomerular 13 L Filtrat Rate mL/min Glucose Level 130 Calcium Level 8.5 Total Bilirubin 0.3 Direct Bilirubin 0.00 Indirect Bilirubin 0.3 Aspartate Amino 19 Transf (AST/SGOT) Alanine 6 L Aminotransferase (AL T/SGPT) Alkaline Phosphatase 92 Troponin I 0.052 Total Protein 7.0 Albumin 3.4 Globulin 3.60 H Albumin/Globulin 0.94 Ratio POC Venous Lactate 1.1 Lactic Acid Level 1.2 Test 03/14/19 23:58 03/15/19 01:17 03/15/19 04:53 03/15/19 08:03 Lactic Acid Level 1.1 Urine Color YELLOW Urine Clarity CLEAR Urine pH 6.0 Urine Specific 1.011 [place] Urine Ketones TRACE A Urine Nitrite NEGATIVE Urine Bilirubin NEGATIVE Urine Urobilinogen NEGATIVE Urine Leukocyte NEGATIVE Esterase Urine Microscopic 4 RBC Urine Microscopic 1 WBC Urine Bacteria FEW A Urine Hemoglobin 1+ H Urine Glucose 1+ H Urine Total Protein 3+ H White Blood Count 14.0 #H Red Blood Count 2.57 L Hemoglobin 7.7 L Hematocrit 22.8 L Mean Corpuscular 88.7 Volume Mean Corpuscular 30.0 Hemoglobin Mean Corpuscular 33.8 Hemoglobin Concent Red Cell 12.0 Distribution Width Platelet Count 370 Mean Platelet Volume 9.8 Immature 0.600 H Granulocytes % Neutrophils % 81.2 H Lymphocytes % 10.1 L Monocytes % 7.5 Eosinophils % 0.3 Basophils % 0.3 Nucleated Red Blood 0.0 Cells % Immature 0.090 H Granulocytes # Neutrophils # 11.4 H Lymphocytes # 1.4 Monocytes # 1.1 H Eosinophils # 0.0 Basophils # 0.0 Nucleated Red Blood 0.0 Cells # Sodium Level 137 Potassium Level 4.3 Chloride Level 106 Carbon Dioxide Level 20 L Anion Gap 11 Blood Urea Nitrogen 40 H Creatinine 3.85 H Est Glomerular 16 L Filtrat Rate mL/min Glucose Level 96 Hemoglobin A1c 5.7 Calcium Level 7.5 L Phosphorus Level 5.1 H Magnesium Level 2.0 Bedside Glucose 86 Test 03/15/19 12:24 Bedside Glucose 112 HPI/ROS Admit Date/Time Admit Date/Time Mar 14, 2019 at 22:19 Hx of Present Illness 68 year old man with multiple medical issues presents to the [facility] with complaint of severe pain right foot. States injured his foot a few weeks ago and noted a small pinpoint laceration which he thought would heal, but after about a week noted swelling and discoloration. He has been in contact with his marketing operations assistant and vascular surgeon, and he was scheduled for an intervention/procedure tomorrow SaturdayMarch 16 but came to the [facility] last night with excruciating pain in the foot and noted that the second and third toes where fused. He also complains of hypersialorrhea that has been ongoing for 6 months and has been affecting his po intake and causing weight loss. Workup that has included EGD and scope by ENT has been negative to date. Admitted for pain management, antibiotic therapy and probable debridement and bypass or possible amputation. We will also address the hypersialorrhea. 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 Medical History: coronary artery disease, diabetes, high cholesterol, hypertension, renal disease (CKD), other (Peripheral vascular disease, ) Medications Current Medications Ondansetron HCl (Zofran Inj) 4 mg BRIDGE ORDER PRN IV NAUSEA/VOMITING; Start 03/14/19 at 22:30; Stop 03/15/19 at 22:29 Acetaminophen (Tylenol Tab) 650 mg ER BRIDGE PRN PO .MILD PAIN 1-3 OR TEMP; Start 03/14/19 at 22:30; Stop 03/15/19 at 22:29 IV Flush (NS 3 ml) 3 ml PER PROTOCOL IV ; Start 03/14/19 at 23:00 Ondansetron HCl (Zofran Tab) 4 mg Q6H PRN PO NAUSEA/VOMITING; Start 03/14/19 at 23:00 Acetaminophen/ Hydrocodone Bitart ([place] (5/325)) 1 tab Q6H PRN PO .MOD PAIN 4- 6; Start 03/14/19 at 23:00 Acetaminophen/ Hydrocodone Bitart ([place] (5/325)) 2 tab Q6H PRN PO .SEVERE PAIN 7-10 Last administered on 03/15/19at 00:09; Admin Dose 2 TAB; Start 03/14/19 at 23:00 Docusate Sodium (Colace) 100 mg Q12H PRN PO .CONSTIPATION; Start 03/14/19 at 23:00 Magnesium Hydroxide (Milk Of Mag) 30 ml DAILY PRN PO .CONSTIPATION; Start 03/14/19 at 23:00 Sodium Biphosphate/ Sodium Phosphate (Fleet Enema) 133 ml DAILY PRN [place] .CONSTIPATION; Start 03/14/19 at 23:00 Zolpidem Tartrate (Ambien) 5 mg QHS PRN PO .INSOMNIA; Start 03/14/19 at 23:00 Famotidine (Pepcid) 20 mg DAILY PO Last administered on 03/15/19at 10:34; Admin Dose 20 MG; Start 03/15/19 at 09:00 Enoxaparin Sodium (Lovenox) 40 mg DAILY SC Last administered on 03/15/19at 11:02; Admin Dose 40 MG; Start 03/15/19 at 09:00 Alfuzosin HCl (Uroxatral) 10 mg HS PO ; Start 03/15/19 at 21:00 Amlodipine Besylate (Norvasc) 5 mg DAILY PO Last administered on 03/15/19at 10:34; Admin Dose 5 MG; Start 03/15/19 at 09:00 Atorvastatin Calcium (Lipitor) 40 mg QHS PO ; Start 03/15/19 at 21:00 Cilostazol (Pletal) 50 mg BID PO Last administered on 03/15/19 10:33; Admin Dose 50 MG; Start 03/15/19 at 09:00 Glycopyrrolate (Robinul) 1 mg BID PO Last administered on 03/15/19 10:33; Admin Dose 1 MG; Start 03/15/19 at 09:00 Metoclopramide HCl (Reglan) 5 mg AC MEALS PO Last administered on 03/15/19at 12:23; Admin Dose 5 MG; Start 03/15/19 at 07:00 Linagliptin (Tradjenta) 5 mg DAILY PO Last administered on 03/15/19at 10:34; Admin Dose 5 MG; Start 03/15/19 at 09:00 Diagnostic Test (Pha) (Accu-Chek) 1 ea AC MEALS AND BEDTIME XX ; Start 03/15/19 at 07:00 Vancomycin HCl (Vanco Iv Per Pharmacy) VANCOMYCIN PER PHARMACY PER PROTOCOL XX ; Start 03/14/19 at 23:30 Piperacillin Sod/ Tazobactam Sod 50 ml @ 100 mls/hr Q12H IVPB Last administered on 03/15/19at 06:18; Admin Dose 100 MLS/HR; Start 03/15/19 at 06:00 Miscellaneous Information (*Rx Drug Level Order Reminder*) VANCO RANDOM 0500 ONCE XX ; Start 03/16/19 at 05:00; Stop 03/16/19 at 05:01 Carvedilol (Coreg) 12.5 mg BID PO Last administered on 03/15/19at 10:35; Admin Dose 12.5 MG; Start 03/15/19 at 09:00 Coded Allergies: No Known Allergy (Unverified , 01/29/19) Past Surgical History Past Surgical Hx: other (Left GT amputation) Family History Significant Family History: cancer, diabetes Social History Alcohol Use: none Smoking Status: Former smoker Drug Use: none Exam/Review of Systems Vital Signs Vitals Vital Signs Date Temp Pulse Resp B/P (MAP) Pulse Ox O2 O2 Flow FiO2 Time Delivery Rate 03/15/19 98.0 89 18 158/73 99 07:54 (101) 03/15/19 Room Air 02:06 Intake and Output 03/14/19 03/14/19 03/15/19 1515:00 23:00 07:00 IntakeIntake Total 2060 ml 400 ml BalanceBalance 2060 ml 400 ml Exam Constitutional: alert, oriented Psych: nl mood/affect Head: normocephalic Eyes: EOMI, PERRL ENMT: mucosa pink and moist Neck: supple Respiratory: clear to auscultation Cardiovascular: regular rate and rhythm Gastrointestinal: soft Musculoskeletal: other (Left GT disarticulation, Right GT, 2nd and 3rd toes blackened that radiates to the tarsal/pedal region.with eschar of 2nd and 3rd toe and dorsal aspect of GT) Extremities: other (pulses decreased bilateral lower extremities and cold to touch) Neurological: nl mental status (normal), nl speech (fluid), other (decreased sensation to light touch) Additional Comments Labs and POC reviewed OLIVIA FAN MD Mar 15, 2019 14:46
[2019-03-15 19:35] VITALS: BP 141/65; PULSE 86; RESP 18
[2019-03-15] MEDS: ATORVASTATIN 40 MG TAB PO SCH (22:23)
[2019-03-15] MEDS: ALFUZOSIN (SR) 10 MG TAB PO SCH (22:24)
[2019-03-16 01:20] VITALS: BP 128/61; PULSE 83; RESP 18
[2019-03-16] MEDS: METOCLOPRAMIDE 5 MG TAB PO SCH ×3 (06:05→17:50)
[2019-03-16] MEDS: PIPER-TAZO 2.25 GM/NS 50 ML IVPB SCH ×3 (06:05→21:58)
[2019-03-16] MEDS: ACCU-CHEK XX SCH ×4 (07:00→21:00)
[2019-03-16 07:35] VITALS: BP 120/59; PULSE 80; RESP 18
--- NOTE | 2019-03-16 08:50 | CONS ---
DATE OF ADMISSION: 03/14/2019 DATE OF CONSULTATION: 03/16/2019 REFERRING PHYSICIAN: Dr. Olivia Lorenz. REASON FOR CONSULTATION: Right foot gangrene. HISTORY OF PRESENT ILLNESS: This is a 68-year-old gentleman with diabetes, hypertension, and chronic kidney disease. I saw him last about 6 weeks ago when he was in the hospital with problems swallowing. He complained of severe right calf claudication. I have seen him for years and he has had some gangrene in the foot before and did a percutaneous intervention a couple years ago. The fifth toe was amputated, that is all healed up, but then he developed severe claudication. I did a CO2 angiogram. His creatinine was 4 and this was on 02/02/2019, which showed an acute popliteal occlusion with collaterals. At that time, he had no rest pain amd did not have any wounds. His claudication was severe enough, I recommended doing a bypass as he was not a good candidate for percutaneous intervention based on the anatomy of the lesion as well as the fact that his creatinine was 4. He did not follow up with me. We tried to call him and have him come and see me for followup. He just never did. He has been, since I last saw him 6 weeks ago, he had gone to see another executive producer promos who called me last and told me he was having problems with his right foot, and this doctor was Dr. Hernandez in [place], and he had convinced him to make an appointment and to come see me in the office today, but apparently over the weekend he came in to the emergency room. Since I last saw him about a month ago, he bumped his right first and second toe on the stair and now has progressed to gangrene. His second toe has fixed cyanosis and it is basically . The first toe has a patch of necrotic tissue at the tip and base of the toe looks very ischemic as well. The third and fourth toes are viable and fifth toe has previously been amputated. I came in, his white count was elevated. He must have developed some infection in there as well. Dr. Dodd has been consulted to see him. He has been following him for years as well. PAST MEDICAL HISTORY: Significant for poorly controlled diabetes, chronic kidney disease. His baseline creatinine now is in [address] Romoff is following him for this. He has peripheral arterial disease, coronary artery disease, hypercholesterolemia. MEDICATIONS: Consist of Pepcid, subq Lovenox, Uroxatral, Norvasc, Lipitor, Pletal, Robinul, Reglan, Tragenta, vancomycin, Zosyn, and Coreg. ALLERGIES: NO KNOWN DRUG ALLERGIES. PAST SURGICAL HISTORY: Had a left first toe amputated after an intervention several years ago and in the right fifth toe was amputated more recently, that was a year and half ago. He has had percutaneous arterial interventions in both legs, none recently. The most recent angiogram he had was back in January and it was a CO2 angiogram. FAMILY HISTORY: Significant for cancer and diabetes. SOCIAL HISTORY: He is a former smoker. He does not drink or use any illicit drugs. 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 REVIEW OF SYSTEMS: He currently denies any chest pain or shortness of breath. He has no nausea, vomiting, diarrhea. Does have pain in the right foot. He has not been walking much. His claudication has resolved. No abdominal or back pain. No fevers or chills. No recent weight gain or weight loss. PHYSICAL EXAMINATION: VITAL SIGNS: He has been afebrile. His blood pressure is 120/59, heart rate is 80, respiratory rate is 18, 96% sat on room air. NECK: 2+ carotid, radial and brachial pulses bilaterally. He is not edematous. LUNGS: Clear. HEART: Regular rate and rhythm. ABDOMEN: Soft, nontender, nondistended. EXTREMITIES: He has 2+ femoral pulses bilaterally. Popliteal, DP and PT pulses are not palpable in either foot. No wounds on the left foot and on the right. As previously described the second toe has thick cyanosis and that is all the way down to the base. It just has not demarcated yet. The first toe has a necrotic eschar at the tip. It is dry. The rest of the toe has thick cyanosis as well as, and looked like the first and second toes are salvageable. The clinic. There are . The third and fourth toes are viable. There is no breakdown of the third toe where the second toe was rubbing against it. There is no progression onto the plantar or dorsal aspect of the foot. LABORATORY DATA: Shows white count was 18 when he came in it came down to 14. Creatinine is 4.3 when he came and is now 3.85. It is still in the same range had been in 6 weeks ago. His platelet counts high elevated, but not abnormally low. Coags are normal. 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 He had a CO2 angiogram back in January that showed acute occlusion of the popliteal artery right at the knee with patent below knee popliteal and perineal only runoff. I recommended back then even bypass, the fem-pop and then follow up with me now he needs even it more. He is given a cardiac clearance. He has been counseled already that he will consult to optimize his kidney function. Because of the holiday I am going to be away the rest of the week. Saturday, we would probably be going to get him scheduled for bypass early next week. Dictated By: WALTER RICHTER/VIOLET Conf#: [id number] DID#: [id number] CC: CJ DODD DPM; OLIVIA LORENZ MD; JOSE PARRY MD; DOT ASHLEY MD;*EndCC* MTDD
[2019-03-16] MEDS: FAMOTIDINE 20 MG TAB PO SCH (10:01)
[2019-03-16] MEDS: GLYCOPYRROLATE 1 MG TAB PO SCH ×2 (10:01→20:58)
[2019-03-16] MEDS: CILOSTAZOL 100 MG TAB PO SCH ×2 (10:02→20:58)
[2019-03-16] MEDS: AMLODIPINE 5 MG TAB PO SCH (10:02)
[2019-03-16] MEDS: LINAGLIPTIN 5 MG TABLET PO SCH (10:03)
[2019-03-16] MEDS: ENOXAPARIN 40 MG/0.4 ML SYG SC SCH (10:04)
[2019-03-16] MEDS ORDERED: VANCOMYCIN 1 GM 250 ML IVPB SCH (10:30)
[2019-03-16 14:34] VITALS: BP 132/60; PULSE 83; RESP 20
[2019-03-16] MEDS: HYDROCODONE/APAP (5/325) TAB PO PRN (16:02)
--- NOTE | 2019-03-16 18:43 | PN ---
Date/Time of Note Date/Time of Note DATE: 03/16/19 TIME: 18:35 Assessment/Plan VTE Prophylaxis Risk score (from Ns)>0 risk: 4 SCD applied (from Ns): No SCD contraindicated: low risk/ambulating Pharmacological prophylaxis: heparin Lines/Catheters IV Catheter Type (from Nrs): Saline Lock Urinary Cath still in place: No Assessment/Plan Problems: (1) Gangrene of toe of right foot Status: Acute Comment: Per vascular surgery needs vascular intervention on RLE next week w/ likely R TMTA to follow. Once stable, would plan d/c w/ readmit next week. (2) Vascular insufficiency of extremity Status: Acute Comment: Per vascular surgery needs vascular intervention on RLE next week w/ likely R TMTA to follow. Once stable, would plan d/c w/ readmit next week. (3) Cellulitis of right foot Status: Acute Comment: On zosyn and vanco w/ improvement in WBC. Would like to see this normalize prior to d/c (4) Sepsis Status: Acute Comment: Cont. zosyn and vanco and monitor WBC Qualifiers: Sepsis type: sepsis due to unspecified organism Qualified Codes: A41.9 - Sepsis, unspecified organism (5) Anemia Status: Chronic Comment: Acutely worse. Epogen and FeSO4. (6) Type 2 diabetes mellitus with diabetic peripheral angiopathy without gangrene Status: Chronic Comment: Good control at this time. Cont. linagliptin and monitor. (7) Essential (primary) hypertension Status: Chronic Comment: Good control. Cont. amlodipine and carvedilol (8) Hyperlipidemia Status: Chronic Comment: Cont. statin (9) Benign prostatic hyperplasia with urinary obstruction Status: Chronic Comment: Cont. alfuzosin (10) Chronic kidney disease, stage IV (severe) Status: Chronic Comment: Stable; will monitor renal function. Result Diagram: 03/15/19 0453 03/15/19 0453 Results 24hrs Laboratory Tests Test 03/15/19 22:27 03/16/19 04:58 03/16/19 08:06 03/16/19 12:46 Bedside Glucose 116 107 147 Random Vancomycin Level 12.2 Test 03/16/19 17:04 Bedside Glucose 124 Subjective 24 Hr Interval Summary Constitutional: no complaints Respiratory: no complaints Cardiovascular: no complaints Gastrointestinal: no complaints Genitourinary: no complaints Musculoskeletal: bone/joint pain (controlled but concerned about gangrenous changes R foot) Neurologic: no complaints Exam/Review of Systems Exam Vitals VS - Last 72 Hours, by Label Date Temp Pulse Resp B/P (MAP) Pulse Ox O2 O2 Flow FiO2 Time Delivery Rate 03/16/19 98.2 83 20 132/60 96 Room Air 14:34 (84) 03/16/19 98.6 80 18 120/59 96 Room Air 07:35 (79) 03/16/19 98.6 83 18 128/61 96 01:20 (83) 03/15/19 98.6 86 18 141/65 95 19:35 (90) 03/15/19 98.4 81 17 113/57 97 14:51 (75) 03/15/19 98.0 89 18 158/73 99 07:54 (101) 03/15/19 98.1 96 18 147/69 94 04:00 (95) 03/15/19 98.9 93 18 131/68 98 Room Air 02:06 (89) 03/15/19 96 18 157/76 95 Room Air 01:30 (103) 03/15/19 96 18 140/66 92 Room Air 01:00 (90) 03/15/19 99 16 145/72 90 Room Air 00:30 (96) 03/15/19 101 20 166/79 98 Room Air 00:00 (108) 03/14/19 99 15 153/80 93 Room Air 23:30 (104) 03/14/19 101 17 158/78 94 Room Air 23:00 (104) 03/14/19 99.5 99 13 145/68 93 Room Air 22:30 (93) 03/14/19 103 17 156/74 99 Room Air 22:00 (101) 03/14/19 98 15 149/75 96 Room Air 21:30 (99) 03/14/19 100 14 152/74 98 Room Air 21:00 (100) 03/14/19 102 20 180/81 99 Room Air 20:30 (114) 03/14/19 96 12 192/87 98 Room Air 20:15 (122) 03/14/19 Nasal 19:57 Cannula 03/14/19 100.8 105 19:47 03/14/19 100.0 100 18 153/75 98 18:26 (101) Vital Signs Date Temp Pulse Resp B/P (MAP) Pulse Ox O2 O2 Flow FiO2 Time Delivery Rate 03/16/19 98.2 83 20 132/60 96 Room Air 14:34 (84) Intake and Output 03/15/19 03/15/19 03/16/19 1515:00 23:00 07:00 IntakeIntake Total 1000 ml 530 ml 530 ml BalanceBalance 1000 ml 530 ml 530 ml Constitutional: alert, oriented, well developed Psych: no complaints, nl mood/affect Respiratory: clear to auscultation, normal air movement Cardiovascular: regular rate and rhythm; No nl pulses, No edema, No murmurs/extra sounds, No rub Gastrointestinal: soft, nl liver, spleen, non-tender, bowel sounds; No mass, No rebound or guarding Musculoskeletal: No nl extremities to inspection (R 1st and 2nd toes gangrenous) Extremities: No normal pulses, No cyanosis, No clubbing, No edema Neurological: FINAL FINISHER II-XII intact, nl mental status, nl speech, nl strength Additional Comments Bedside Glucose - 72 Hours Test 03/14/19 19:12 03/15/19 08:03 03/15/19 12:24 03/15/19 17:38 Bedside 136 86 112 96 Glucose mg/dL (70-220) mg/dL (70-220) mg/dL (70-220) mg/dL (70-220) Test 03/15/19 22:27 03/16/19 08:06 03/16/19 12:46 03/16/19 17:04 Bedside 116 107 147 124 Glucose mg/dL (70-220) mg/dL (70-220) mg/dL (70-220) mg/dL (70-220) Results Results 24hrs Laboratory Tests Test 03/15/19 22:27 03/16/19 04:58 03/16/19 08:06 03/16/19 12:46 Bedside Glucose 116 107 147 Random Vancomycin Level 12.2 Test 03/16/19 17:04 Bedside Glucose 124 Medications Medication Current Medications IV Flush (NS 3 ml) 3 ml PER PROTOCOL IV ; Start 03/14/19 at 23:00 Ondansetron HCl (Zofran Tab) 4 mg Q6H PRN PO NAUSEA/VOMITING; Start 03/14/19 at 23:00 Acetaminophen/ Hydrocodone Bitart ([place] (5/325)) 1 tab Q6H PRN PO .MOD PAIN 4- 6; Start 03/14/19 at 23:00 Acetaminophen/ Hydrocodone Bitart ([place] (5/325)) 2 tab Q6H PRN PO .SEVERE PAIN 7-10 Last administered on 03/16/19 16:02; Admin Dose 2 TAB; Start 03/14/19 at 23:00 Docusate Sodium (Colace) 100 mg Q12H PRN PO .CONSTIPATION; Start 03/14/19 at 23:00 Magnesium Hydroxide (Milk Of Mag) 30 ml DAILY PRN PO .CONSTIPATION; Start 03/14/19 at 23:00 Sodium Biphosphate/ Sodium Phosphate (Fleet Enema) 133 ml DAILY PRN [place] .CONSTIPATION; Start 03/14/19 at 23:00 Zolpidem Tartrate (Ambien) 5 mg QHS PRN PO .INSOMNIA; Start 03/14/19 at 23:00 Famotidine (Pepcid) 20 mg DAILY PO Last administered on 03/16/19 10:01; Admin Dose 20 MG; Start 03/15/19 at 09:00 Alfuzosin HCl (Uroxatral) 10 mg HS PO Last administered on 03/15/19 22:24; Admin Dose 10 MG; Start 03/15/19 at 21:00 Amlodipine Besylate (Norvasc) 5 mg DAILY PO Last administered on 03/16/19 10:02; Admin Dose 5 MG; Start 03/15/19 at 09:00 Atorvastatin Calcium (Lipitor) 40 mg QHS PO Last administered on 03/15/19 22:23; Admin Dose 40 MG; Start 03/15/19 at 21:00 Cilostazol (Pletal) 50 mg BID PO Last administered on 03/16/19 10:02; Admin Dose 50 MG; Start 03/15/19 at 09:00 Glycopyrrolate (Robinul) 1 mg BID PO Last administered on 03/16/19 10:01; Admin Dose 1 MG; Start 03/15/19 at 09:00 Metoclopramide HCl (Reglan) 5 mg AC MEALS PO Last administered on 03/16/19 17:50; Admin Dose 5 MG; Start 03/15/19 at 07:00 Linagliptin (Tradjenta) 5 mg DAILY PO Last administered on 03/16/19at 10:03; Adm in Dose 5 MG; Start 03/15/19 at 09:00 Diagnostic Test (Pha) (Accu-Chek) 1 ea AC MEALS AND BEDTIME XX Last administered on 03/15/19at 21:00; Admin Dose 1 EA; Start 03/15/19 at 07:00 Vancomycin HCl (Vanco Iv Per Pharmacy) VANCOMYCIN PER PHARMACY PER PROTOCOL XX ; Start 03/14/19 at 23:30 Carvedilol (Coreg) 12.5 mg BID PO Last administered on 03/16/19at 10:02; Admin Dose 12.5 MG; Start 03/15/19 at 09:00 Vancomycin HCl 250 ml @ 125 mls/hr ONCE IVPB Last administered on 03/16/19at 10:09; Admin Dose 125 MLS/HR; Start 03/16/19 at 10:30; Stop 03/16/19 at 19:00 Piperacillin Sod/ Tazobactam Sod 50 ml @ 100 mls/hr Q8 IVPB Last administered on 03/16/19at 16:02; Admin Dose 100 MLS/HR; Start 03/16/19 at 14:00 Enoxaparin Sodium (Lovenox) 30 mg DAILY SC ; Start 03/17/19 at 09:00 JOSE PRARY MD Mar 16, 2019 18:43
[2019-03-16 19:46] VITALS: BP 148/70; PULSE 79; RESP 18
[2019-03-16] MEDS: ALFUZOSIN (SR) 10 MG TAB PO SCH (20:58)
[2019-03-16] MEDS: FERROUS SULFATE (EC) 325 MG TAB PO SCH (20:58)
[2019-03-16] MEDS: ATORVASTATIN 40 MG TAB PO SCH (20:58)
[2019-03-16] MEDS: HEPARIN 5,000 UNIT/1 ML VIAL SC SCH (20:59)
[2019-03-16 21:00] VITALS: BP 123/60; PULSE 82
[2019-03-17 01:38] VITALS: BP 146/69; PULSE 84; RESP 18
[2019-03-17] MEDS: PIPER-TAZO 2.25 GM/NS 50 ML IVPB SCH ×3 (05:14→21:06)
[2019-03-17] MEDS: METOCLOPRAMIDE 5 MG TAB PO SCH ×3 (07:00→17:43)
[2019-03-17] MEDS: ACCU-CHEK XX SCH ×4 (07:00→21:00)
[2019-03-17 07:45] VITALS: BP 148/67; PULSE 84; RESP 18
[2019-03-17] MEDS: FERROUS SULFATE (EC) 325 MG TAB PO SCH ×3 (08:35→21:08)
[2019-03-17] MEDS: FAMOTIDINE 20 MG TAB PO SCH (08:35)
[2019-03-17] MEDS: LINAGLIPTIN 5 MG TABLET PO SCH (08:35)
[2019-03-17] MEDS: GLYCOPYRROLATE 1 MG TAB PO SCH ×2 (08:35→21:08)
[2019-03-17] MEDS: AMLODIPINE 5 MG TAB PO SCH (08:37)
[2019-03-17] MEDS: CILOSTAZOL 100 MG TAB PO SCH ×2 (08:38→21:07)
[2019-03-17] MEDS: HEPARIN 5,000 UNIT/1 ML VIAL SC SCH ×2 (08:39→21:42)
[2019-03-17] MEDS ORDERED: ENOXAPARIN 30 MG/0.3 ML SYG SC SCH (09:00)
[2019-03-17 14:09] VITALS: BP 142/64; PULSE 91; RESP 18
[2019-03-17] MEDS ORDERED: EPOETIN ALFA-EPBX (NON-ESRD 10,000 UNIT/ML VIAL SC SCH (17:00)
--- NOTE | 2019-03-17 17:45 | PN ---
Date/Time of Note Date/Time of Note DATE: 03/17/19 TIME: 17:39 Assessment/Plan VTE Prophylaxis Risk score (from Ns)>0 risk: 4 SCD applied (from [facility] [place] No SCD contraindicated: low risk/ambulating Pharmacological prophylaxis: heparin Lines/Catheters IV Catheter Type (from [facility]): [place] Urinary Cath still in place: No Assessment/Plan Problems: (1) Sepsis Status: Resolved Comment: WBC normal. Cultures negative. Cont. current antibiotic regimen for now and plan d/c on augmentin pending surgery next week. Qualifiers: Sepsis type: sepsis due to unspecified organism Qualified Codes: A41.9 - Sepsis, unspecified organism (2) Cellulitis of right foot Status: Resolved Comment: WBC normal. Cultures negative. Cont. current antibiotic regimen for now and plan d/c on augmentin pending surgery next week. (3) Vascular insufficiency of extremity Status: Acute Comment: Needs PVD procedure next week (4) Gangrene of toe of right foot Status: Acute Comment: Will need TMTA after PVD procedure next week. (5) Anemia Status: Chronic Comment: H/H stable; needs EPO, Fe. (6) Chronic kidney disease, stage IV (severe) Status: Chronic Comment: acutely worse today. Possibly due to vanco. Will start NS 85 mL/hr and call nephrology before d/c. (7) Type 2 diabetes mellitus with diabetic peripheral angiopathy without gangrene Status: Chronic Comment: Good glycemic control. Cont. current regimen. (8) Hyperlipidemia Status: Chronic Comment: Cont. statin. (9) Essential (primary) hypertension Status: Chronic Comment: BP control fair. Cont. current regimen (10) Disturbance of salivary secretion Status: Chronic Comment: Possibly due to alfuzosin. Will hold and monitor. (11) Benign prostatic hyperplasia with urinary obstruction Status: Chronic Comment: Hold alfuzosin and monitor symptoms. Result Diagram: 03/17/19 0455 03/17/19 0455 Results 24hrs Laboratory Tests Test 03/16/19 19:53 03/17/19 04:55 03/17/19 07:50 03/17/19 12:17 Bedside Glucose 121 103 154 White Blood Count 9.4 # Red Blood Count 2.69 L Hemoglobin 8.0 L Hematocrit 23.0 L Mean Corpuscular Volume 85.5 Mean Corpuscular 29.7 Hemoglobin Mean Corpuscular 34.8 Hemoglobin Concent Red Cell Distribution 11.9 Width Platelet Count 382 Mean Platelet Volume 9.8 Immature Granulocytes % 0.500 H Neutrophils % 76.3 Lymphocytes % 10.6 L Monocytes % 9.2 Eosinophils % 3.0 Basophils % 0.4 Nucleated Red Blood 0.0 Cells % Immature Granulocytes # 0.050 H Neutrophils # 7.1 Lymphocytes # 1.0 Monocytes # 0.9 Eosinophils # 0.3 Basophils # 0.0 Nucleated Red Blood 0.0 Cells # Sodium Level 134 L Potassium Level 4.2 Chloride Level 105 Carbon Dioxide Level 20 L Anion Gap 9 Blood Urea Nitrogen 38 H Creatinine 4.46 H Est Glomerular Filtrat 13 L Rate mL/min Glucose Level 93 Calcium Level 7.7 L Test 03/17/19 17:21 Bedside Glucose 135 Subjective 24 Hr Interval Summary Constitutional: no complaints, improved ENT: other (perceived sialorrhea) Respiratory: no complaints Cardiovascular: no complaints Gastrointestinal: no complaints Genitourinary: no complaints Musculoskeletal: No bone/joint pain Neurologic: no complaints Exam/Review of Systems Exam Vitals VS - Last 72 Hours, by Label Date Temp Pulse Resp B/P (MAP) Pulse Ox O2 O2 Flow FiO2 Time Delivery Rate 03/17/19 98.8 91 18 142/64 95 14:09 (90) 03/17/19 98.3 84 18 148/67 96 07:45 (94) 03/17/19 98.2 84 18 146/69 97 01:38 (94) 03/16/19 82 123/60 21:00 (81) 03/16/19 98.0 79 18 148/70 98 19:46 (96) 03/16/19 98.2 83 20 132/60 96 Room Air 14:34 (84) 03/16/19 98.6 80 18 120/59 96 Room Air 07:35 (79) 03/16/19 98.6 83 18 128/61 96 01:20 (83) 03/15/19 98.6 86 18 141/65 95 19:35 (90) 03/15/19 98.4 81 17 113/57 97 14:51 (75) 03/15/19 98.0 89 18 158/73 99 07:54 (101) 03/15/19 98.1 96 18 147/69 94 04:00 (95) 03/15/19 98.9 93 18 131/68 98 Room Air 02:06 (89) 03/15/19 96 18 157/76 95 Room Air 01:30 (103) 03/15/19 96 18 140/66 92 Room Air 01:00 (90) 03/15/19 99 16 145/72 90 Room Air 00:30 (96) 03/15/19 101 20 166/79 98 Room Air 00:00 (108) 03/14/19 99 15 153/80 93 Room Air 23:30 (104) 03/14/19 101 17 158/78 94 Room Air 23:00 (104) 03/14/19 99.5 99 13 145/68 93 Room Air 22:30 (93) 03/14/19 103 17 156/74 99 Room Air 22:00 (101) 03/14/19 98 15 149/75 96 Room Air 21:30 (99) 03/14/19 100 14 152/74 98 Room Air 21:00 (100) 03/14/19 102 20 180/81 99 Room Air 20:30 (114) 03/14/19 96 12 192/87 98 Room Air 20:15 (122) 03/14/19 Nasal 19:57 Cannula 03/14/19 100.8 105 19:47 03/14/19 100.0 100 18 153/75 98 18:26 (101) Vital Signs Date Temp Pulse Resp B/P (MAP) Pulse Ox O2 O2 Flow FiO2 Time Delivery Rate 03/17/19 98.8 91 18 142/64 95 14:09 (90) 03/16/19 Room Air 14:34 Intake and Output 03/16/19 03/16/19 03/17/19 1515:00 23:00 07:00 IntakeIntake Total 600 ml 470 ml 50 ml OutputOutput Total 300 ml 450 ml BalanceBalance 600 ml 170 ml -400 ml Constitutional: alert, oriented, well developed Respiratory: clear to auscultation, normal air movement Cardiovascular: regular rate and rhythm; No edema, No murmurs/extra sounds, No rub Gastrointestinal: soft, nl liver, spleen, non-tender, bowel sounds; No mass, No rebound or guarding Musculoskeletal: No nl extremities to inspection (R foot gangrenous) Extremities: No cyanosis, No clubbing, No edema Neurological: [employer] II-XII intact, nl mental status, nl speech, nl strength Additional Comments Bedside Glucose - 72 Hours Test 03/14/19 19:12 03/15/19 08:03 03/15/19 12:24 03/15/19 17:38 Bedside 136 86 112 96 Glucose mg/dL (70-220) mg/dL (70-220) mg/dL (70-220) mg/dL (70-220) Test 03/15/19 22:27 03/16/19 08:06 03/16/19 12:46 03/16/19 17:04 Bedside 116 107 147 124 Glucose mg/dL (70-220) mg/dL (70-220) mg/dL (70-220) mg/dL (70-220) Test 03/16/19 19:53 03/17/19 07:50 03/17/19 12:17 03/17/19 17:21 Bedside 121 103 154 135 Glucose mg/dL (70-220) mg/dL (70-220) mg/dL (70-220) mg/dL (70-220) Results Results 24hrs Laboratory Tests Test 03/16/19 19:53 03/17/19 04:55 03/17/19 07:50 03/17/19 12:17 Bedside Glucose 121 103 154 White Blood Count 9.4 # Red Blood Count 2.69 L Hemoglobin 8.0 L Hematocrit 23.0 L Mean Corpuscular Volume 85.5 Mean Corpuscular 29.7 Hemoglobin Mean Corpuscular 34.8 Hemoglobin Concent Red Cell Distribution 11.9 Width Platelet Count 382 Mean Platelet Volume 9.8 Immature Granulocytes % 0.500 H Neutrophils % 76.3 Lymphocytes % 10.6 L Monocytes % 9.2 Eosinophils % 3.0 Basophils % 0.4 Nucleated Red Blood 0.0 Cells % Immature Granulocytes # 0.050 H Neutrophils # 7.1 Lymphocytes # 1.0 Monocytes # 0.9 Eosinophils # 0.3 Basophils # 0.0 Nucleated Red Blood 0.0 Cells # Sodium Level 134 L Potassium Level 4.2 Chloride Level 105 Carbon Dioxide Level 20 L Anion Gap 9 Blood Urea Nitrogen 38 H Creatinine 4.46 H Est Glomerular Filtrat 13 L Rate mL/min Glucose Level 93 Calcium Level 7.7 L Test 03/17/19 17:21 Bedside Glucose 135 Medications Medication Current Medications IV Flush (NS 3 ml) 3 ml PER PROTOCOL IV ; Start 03/14/19 at 23:00 Ondansetron HCl (Zofran Tab) 4 mg Q6H PRN PO NAUSEA/VOMITING Last administered on 03/17/19 08:44; Admin Dose 4 MG; Start 03/14/19 at 23:00 Acetaminophen/ Hydrocodone Bitart ([place] (5/325)) 1 tab Q6H PRN PO .MOD PAIN 4- 6; Start 03/14/19 at 23:00 Acetaminophen/ Hydrocodone Bitart ([place] (5/325)) 2 tab Q6H PRN PO .SEVERE PAIN 7-10 Last administered on 03/16/19 16:02; Admin Dose 2 TAB; Start 03/14/19 at 23:00 Docusate Sodium (Colace) 100 mg Q12H PRN PO .CONSTIPATION; Start 03/14/19 at 23:00 Magnesium Hydroxide (Milk Of Mag) 30 ml DAILY PRN PO .CONSTIPATION; Start 03/14/19 at 23:00 Sodium Biphosphate/ Sodium Phosphate (Fleet Enema) 133 ml DAILY PRN [place] .CONSTIPATION; Start 03/14/19 at 23:00 Zolpidem Tartrate (Ambien) 5 mg QHS PRN PO .INSOMNIA; Start 03/14/19 at 23:00 Famotidine (Pepcid) 20 mg DAILY PO Last administered on 03/17/19 08:35; Admin Dose 20 MG; Start 03/15/19 at 09:00 Alfuzosin HCl (Uroxatral) 10 mg HS PO Last administered on 03/16/19 20:58; Admin Dose 10 MG; Start 03/15/19 at 21:00 Amlodipine Besylate (Norvasc) 5 mg DAILY PO Last administered on 03/17/19 08:37; Admin Dose 5 MG; Start 03/15/19 at 09:00 Atorvastatin Calcium (Lipitor) 40 mg QHS PO Last administered on 03/16/19 20:58; Admin Dose 40 MG; Start 03/15/19 at 21:00 Cilostazol (Pletal) 50 mg BID PO Last administered on 03/17/19 08:38; Admin Dose 50 MG; Start 03/15/19 at 09:00 Glycopyrrolate (Robinul) 1 mg BID PO Last administered on 03/17/19 08:35; Admin Dose 1 MG; Start 03/15/19 at 09:00 Metoclopramide HCl (Reglan) 5 mg AC MEALS PO Last administered on 03/17/19 10:51; Admin Dose 5 MG; Start 03/15/19 at 07:00 Linagliptin (Tradjenta) 5 mg DAILY PO Last administered on 03/17/19 08:35; Admin Dose 5 MG; Start 03/15/19 at 09:00 Diagnostic Test (Pha) (Accu-Chek) 1 ea AC MEALS AND BEDTIME XX Last administered on 03/15/19 21:00; Admin Dose 1 EA; Start 03/15/19 at 07:00 Vancomycin HCl (Vanco Iv Per Pharmacy) VANCOMYCIN PER PHARMACY PER PROTOCOL XX ; Start 03/14/19 at 23:30 Carvedilol (Coreg) 12.5 mg BID PO Last administered on 03/17/19 08:36; Admin Dose 12.5 MG; Start 03/15/19 at 09:00 Piperacillin Sod/ Tazobactam Sod 50 ml @ 100 mls/hr Q8 IVPB Last administered on 03/17/19 13:06; Admin Dose 100 MLS/HR; Start 03/16/19 at 14:00 Heparin Sodium (Porcine) (Heparin (5000 Units/1ml)) 5,000 unit BID SC Last administered on 03/17/19 08:39; Admin Dose 5,000 UNIT; Start 03/16/19 at 21:00 Epoetin Joseph-epbx (Retacrit (Non-Esrd)) 10,000 unit TuThSa@1700 SC ; Start 03/17/19 at 17:00 Ferrous Sulfate (Ferrous Sulfate (Ec)) 325 mg TID PO Last administered on 03/17/19 13:06; Admin Dose 325 MG; Start 03/16/19 at 21:00 JOSE PARRY MD Mar 17, 2019 17:45
[2019-03-17] MEDS: SOD CHLORIDE 0.9% 1,000 ML IV SCH (18:34)
[2019-03-17 19:35] VITALS: BP 136/63; PULSE 90; RESP 18
[2019-03-17] MEDS: ATORVASTATIN 40 MG TAB PO SCH (21:08)
--- NOTE | 2019-03-17 23:49 | CONS ---
Consultation Date/Type/Reason Admit Date/Time Mar 14, 2019 at 22:19 Date/Time of Note DATE: 03/17/19 TIME: 23:49 Past Medical History Medical History: coronary artery disease, diabetes, high cholesterol, hyperten taras, renal disease (CKD), other (Peripheral vascular disease, ) Home Meds Active Scripts Ranitidine Hcl* (Ranitidine Hcl*) 150 Mg Tablet, 150 MG PO DAILY for 30 Days, #30 TAB 5 Refills Prov:JOSE PARRY MD 02/02/19 Metoclopramide Hcl* (Metoclopramide Hcl*) 5 Mg Tablet, 5 MG PO AC MEALS for 30 Days, #90 TAB 5 Refills Prov:JOSE PARRY MD 02/02/19 Carvedilol* (Carvedilol*) 12.5 Mg Tablet, 12.5 MG PO BID for 30 Days, #60 TAB 5 Refills Prov:JOSE PARRY MD 02/02/19 Cilostazol* (Cilostazol*) 100 Mg Tablet, 50 MG PO BID for 30 Days, #30 TAB 5 Refills Prov:JOSE PARRY MD 02/02/19 Alfuzosin Hcl* (Alfuzosin Hcl*) 10 Mg Tab.er.24h, 10 MG PO HS for 30 Days, #30 TAB 5 Refills Prov:JOSE PARRY MD 02/02/19 Reported Medications Glycopyrrolate* (Glycopyrrolate*) 1 Mg Tablet, 1 MG PO BID, TAB 01/29/19 Amlodipine Besylate* (Norvasc*) 5 Mg Tablet, 5 MG PO DAILY, TAB 01/29/19 Ergocalciferol (Vitamin D2) (VITAMIN D2) 50,000 Unit Capsule, 41082 UNIT PO Q FRI, CAP 01/29/19 Atorvastatin* (Atorvastatin*) 40 Mg Tablet, 40 MG PO QHS, #30 TAB 01/29/19 Dulaglutide (Trulicity) 1.5 Mg/0.5 Ml Pen.injctr, 1.5 MG SQ Q SUN 01/29/19 Medications Current Medications IV Flush (NS 3 ml) 3 ml PER PROTOCOL IV ; Start 03/14/19 at 23:00 Ondansetron HCl (Zofran Tab) 4 mg Q6H PRN PO NAUSEA/VOMITING Last administered on 7/2/19at 08:44; Admin Dose 4 MG; Start 03/14/19 at 23:00 Acetaminophen/ Hydrocodone Bitart ([place] (5/325)) 1 tab Q6H PRN PO .MOD PAIN 4- 6; Start 03/14/19 at 23:00 Acetaminophen/ Hydrocodone Bitart ([place] (5/325)) 2 tab Q6H PRN PO .SEVERE PAIN 7-10 Last administered on 03/16/19 16:02; Admin Dose 2 TAB; Start 03/14/19 at 23:00 Docusate Sodium (Colace) 100 mg Q12H PRN PO .CONSTIPATION; Start 03/14/19 at 23:00 Magnesium Hydroxide (Milk Of Mag) 30 ml DAILY PRN PO .CONSTIPATION; Start 03/14/19 at 23:00 Sodium Biphosphate/ Sodium Phosphate (Fleet Enema) 133 ml DAILY PRN [place] .CONSTIPATION; Start 03/14/19 at 23:00 Zolpidem Tartrate (Ambien) 5 mg QHS PRN PO .INSOMNIA; Start 03/14/19 at 23:00 Famotidine (Pepcid) 20 mg DAILY PO Last administered on 03/17/19 08:35; Admin Dose 20 MG; Start 03/15/19 at 09:00 Amlodipine Besylate (Norvasc) 5 mg DAILY PO Last administered on 03/17/19 08:37; Admin Dose 5 MG; Start 03/15/19 at 09:00 Atorvastatin Calcium (Lipitor) 40 mg QHS PO Last administered on 03/17/19 21:0 8; Admin Dose 40 MG; Start 03/15/19 at 21:00 Cilostazol (Pletal) 50 mg BID PO Last administered on 03/17/19 21:07; Admin Dose 50 MG; Start 03/15/19 at 09:00 Glycopyrrolate (Robinul) 1 mg BID PO Last administered on 03/17/19 21:08; Admin Dose 1 MG; Start 03/15/19 at 09:00 Metoclopramide HCl (Reglan) 5 mg AC MEALS PO Last administered on 03/17/19 17:43; Admin Dose 5 MG; Start 03/15/19 at 07:00 Linagliptin (Tradjenta) 5 mg DAILY PO Last administered on 03/17/19 08:35; Admin Dose 5 MG; Start 03/15/19 at 09:00 Diagnostic Test (Pha) (Accu-Chek) 1 ea AC MEALS AND BEDTIME XX Last administered on 03/15/19at 21:00; Admin Dose 1 EA; Start 03/15/19 at 07:00 Vancomycin HCl (Vanco Iv Per Pharmacy) VANCOMYCIN PER PHARMACY PER PROTOCOL XX ; Start 03/14/19 at 23:30 Carvedilol (Coreg) 12.5 mg BID PO Last administered on 03/17/19 21:09; Admin Dose 12.5 MG; Start 03/15/19 at 09:00 Piperacillin Sod/ Tazobactam Sod 50 ml @ 100 mls/hr Q8 IVPB Last administered on 03/17/19 21:06; Admin Dose 100 MLS/HR; Start 03/16/19 at 14:00 Heparin Sodium (Porcine) (Heparin (5000 Units/1ml)) 5,000 unit BID SC Last administered on 03/17/19 21:42; Admin Dose 5,000 UNIT; Start 03/16/19 at 21:00 Epoetin Joseph-epbx (Retacrit (Non-Esrd)) 10,000 unit TuThSa@1700 SC Last administered on 03/17/19 18:35; Admin Dose 10,000 UNIT; Start 03/17/19 at 17:00 Ferrous Sulfate (Ferrous Sulfate (Ec)) 325 mg TID PO Last administered on 03/17/19 21:08; Admin Dose 325 MG; Start 03/16/19 at 21:00 Sodium Chloride 1,000 ml @ 80 mls/hr [id number] IV Last administered on 03/17/19 18:34; Admin Dose 80 MLS/HR; Start 03/17/19 at 18:00 Allergies: Coded Allergies: No Known Allergy (Unverified , 01/29/19) Past Surgical History Past Surgical Hx: other (Left GT amputation) Social History Alcohol Use: none Smoking Status: Former smoker Drug Use: none Exam/Review of Systems Exam Vitals Vital Signs Date Temp Pulse Resp B/P (MAP) Pulse Ox O2 O2 Flow FiO2 Time Delivery Rate 03/17/19 98.5 90 18 136/63 96 19:35 (87) 03/16/19 Room Air 14:34 Intake and Output 03/16/19 03/16/19 03/17/19 1515:00 23:00 07:00 IntakeIntake Total 600 ml 470 ml 50 ml OutputOutput Total 300 ml 450 ml BalanceBalance 600 ml 170 ml -400 ml Results Result Diagram: 03/17/19 0455 03/17/19 0455 Results 24hrs Laboratory Tests Test 03/17/19 04:55 03/17/19 07:50 03/17/19 12:17 03/17/19 17:21 White Blood Count 9.4 # Red Blood Count 2.69 L Hemoglobin 8.0 L Hematocrit 23.0 L Mean Corpuscular Volume 85.5 Mean Corpuscular 29.7 Hemoglobin Mean Corpuscular 34.8 Hemoglobin Concent Red Cell Distribution 11.9 Width Platelet Count 382 Mean Platelet Volume 9.8 Immature Granulocytes % 0.500 H Neutrophils % 76.3 Lymphocytes % 10.6 L Monocytes % 9.2 Eosinophils % 3.0 Basophils % 0.4 Nucleated Red Blood 0.0 Cells % Immature Granulocytes # 0.050 H Neutrophils # 7.1 Lymphocytes # 1.0 Monocytes # 0.9 Eosinophils # 0.3 Basophils # 0.0 Nucleated Red Blood 0.0 Cells # Sodium Level 134 L Potassium Level 4.2 Chloride Level 105 Carbon Dioxide Level 20 L Anion Gap 9 Blood Urea Nitrogen 38 H Creatinine 4.46 H Est Glomerular Filtrat 13 L Rate mL/min Glucose Level 93 Calcium Level 7.7 L Bedside Glucose 103 154 135 Test 03/17/19 21:05 Bedside Glucose 127 Medications Medication Current Medications IV Flush (NS 3 ml) 3 ml PER PROTOCOL IV ; Start 03/14/19 at 23:00 Ondansetron HCl (Zofran Tab) 4 mg Q6H PRN PO NAUSEA/VOMITING Last administered on 03/17/19at 08:44; Admin Dose 4 MG; Start 03/14/19 at 23:00 Acetaminophen/ Hydrocodone Bitart ([place] (5/325)) 1 tab Q6H PRN PO .MOD PAIN 4- 6; Start 03/14/19 at 23:00 Acetaminophen/ Hydrocodone Bitart ([place] (5/325)) 2 tab Q6H PRN PO .SEVERE PAIN 7-10 Last administered on 03/16/19at 16:02; Admin Dose 2 TAB; Start 03/14/19 at 23:00 Docusate Sodium (Colace) 100 mg Q12H PRN PO .CONSTIPATION; Start 03/14/19 at 23:00 Magnesium Hydroxide (Milk Of Mag) 30 ml DAILY PRN PO .CONSTIPATION; Start 03/14/19 at 23:00 Sodium Biphosphate/ Sodium Phosphate (Fleet Enema) 133 ml DAILY PRN [place] .CONSTIPATION; Start 03/14/19 at 23:00 Zolpidem Tartrate (Ambien) 5 mg QHS PRN PO .INSOMNIA; Start 03/14/19 at 23:00 Famotidine (Pepcid) 20 mg DAILY PO Last administered on 03/17/19 08:35; Admin Dose 20 MG; Start 03/15/19 at 09:00 Amlodipine Besylate (Norvasc) 5 mg DAILY PO Last administered on 03/17/19 08:37; Admin Dose 5 MG; Start 03/15/19 at 09:00 Atorvastatin Calcium (Lipitor) 40 mg QHS PO Last administered on 03/17/19 21:08; Admin Dose 40 MG; Start 03/15/19 at 21:00 Cilostazol (Pletal) 50 mg BID PO Last administered on 03/17/19 21:07; Admin Dose 50 MG; Start 03/15/19 at 09:00 Glycopyrrolate (Robinul) 1 mg BID PO Last administered on 03/17/19 21:08; Admin Dose 1 MG; Start 03/15/19 at 09:00 Metoclopramide HCl (Reglan) 5 mg AC MEALS PO Last administered on 03/17/19 17:43; Admin Dose 5 MG; Start 03/15/19 at 07:00 Linagliptin (Tradjenta) 5 mg DAILY PO Last administered on 03/17/19 08:35; Admin Dose 5 MG; Start 03/15/19 at 09:00 Diagnostic Test (Pha) (Accu-Chek) 1 ea AC MEALS AND BEDTIME XX Last administered on 03/15/19 21:00; Admin Dose 1 EA; Start 03/15/19 at 07:00 Vancomycin HCl (Vanco Iv Per Pharmacy) VANCOMYCIN PER PHARMACY PER PROTOCOL XX ; Start 03/14/19 at 23:30 Carvedilol (Coreg) 12.5 mg BID PO Last administered on 03/17/19 21:09; Admin Dose 12.5 MG; Start 03/15/19 at 09:00 Piperacillin Sod/ Tazobactam Sod 50 ml @ 100 mls/hr Q8 IVPB Last administered on 03/17/19at 21:06; Admin Dose 100 MLS/HR; Start 03/16/19 at 14:00 Heparin Sodium (Porcine) (Heparin (5000 Units/1ml)) 5,000 unit BID SC Last administered on 03/17/19at 21:42; Admin Dose 5,000 UNIT; Start 03/16/19 at 21:00 Epoetin Joseph-epbx (Retacrit (Non-Esrd)) 10,000 unit TuThSa@1700 SC Last administered on 03/17/19 18:35; Admin Dose 10,000 UNIT; Start 03/17/19 at 17:00 Ferrous Sulfate (Ferrous Sulfate (Ec)) 325 mg TID PO Last administered on 03/17/19 21:08; Admin Dose 325 MG; Start 03/16/19 at 21:00 Sodium Chloride 1,000 ml @ 80 mls/hr [id number] IV Last administered on 03/17/19at 18:34; Admin Dose 80 MLS/HR; Start 03/17/19 at 18:00 CJ DODD DPNhi Mar 17, 2019 23:49
[2019-03-18 01:26] VITALS: BP 137/69; PULSE 84; RESP 18
[2019-03-18] MEDS: PIPER-TAZO 2.25 GM/NS 50 ML IVPB SCH ×3 (05:55→21:06)
[2019-03-18] MEDS: SOD CHLORIDE 0.9% 1,000 ML IV SCH (06:48)
[2019-03-18] MEDS: METOCLOPRAMIDE 5 MG TAB PO SCH ×3 (06:48→18:30)
[2019-03-18] MEDS: ACCU-CHEK XX SCH ×4 (07:00→21:00)
[2019-03-18 08:01] VITALS: BP 143/65; PULSE 88; RESP 19
--- NOTE | 2019-03-18 08:01 | CONS ---
Assessment/Plan Assessment/Plan Assessment/Plan Renal consult dict 1-Ad with gangrene right foot, abx noted, will need vasc intervention followed by toe amputation 2-CKD sec diabetic glomerulosclerosis with mild worsening of renal fx sec to changes in intravasc volume given improvement in renal fx with IV's, doubt related to vanco. 3-Anemia, stool ob ordered, receiving iron, consider transfusion prior to dc. 4-DM, long standing 5-PVD Consultation Date/Type/Reason Admit Date/Time Mar 14, 2019 at 22:19 Type of Consult Nephrology Date/Time of Note DATE: 03/18/19 TIME: 07:58 Past Medical History Home Meds Active Scripts Ranitidine Hcl* (Ranitidine Hcl*) 150 Mg Tablet, 150 MG PO DAILY for 30 Days, #30 TAB 5 Refills Prov:JOSE PARRY MD 02/02/19 Metoclopramide Hcl* (Metoclopramide Hcl*) 5 Mg Tablet, 5 MG PO AC MEALS for 30 Days, #90 TAB 5 Refills Prov:JOSE PARRY MD 02/02/19 Carvedilol* (Carvedilol*) 12.5 Mg Tablet, 12.5 MG PO BID for 30 Days, #60 TAB 5 Refills Prov:JOSE PARRY MD 02/02/19 Cilostazol* (Cilostazol*) 100 Mg Tablet, 50 MG PO BID for 30 Days, #30 TAB 5 Refills Prov:JOSE PARRY MD 02/02/19 Alfuzosin Hcl* (Alfuzosin Hcl*) 10 Mg Tab.er.24h, 10 MG PO HS for 30 Days, #30 TAB 5 Refills Prov:JOSE PARRY MD 02/02/19 Reported Medications Glycopyrrolate* (Glycopyrrolate*) 1 Mg Tablet, 1 MG PO BID, TAB 01/29/19 Amlodipine Besylate* (Norvasc*) 5 Mg Tablet, 5 MG PO DAILY, TAB 01/29/19 Ergocalciferol (Vitamin D2) (VITAMIN D2) 50,000 Unit Capsule, 49765 UNIT PO Q FRI, CAP 01/29/19 Atorvastatin* (Atorvastatin*) 40 Mg Tablet, 40 MG PO QHS, #30 TAB 01/29/19 Dulaglutide (Trulicity) 1.5 Mg/0.5 Ml Pen.injctr, 1.5 MG SQ Q SUN 01/29/19 Medications Current Medications IV Flush (NS 3 ml) 3 ml PER PROTOCOL IV ; Start 03/14/19 at 23:00 Ondansetron HCl (Zofran Tab) 4 mg Q6H PRN PO NAUSEA/VOMITING Last administered on 03/17/19 08:44; Admin Dose 4 MG; Start 03/14/19 at 23:00 Acetaminophen/ Hydrocodone Bitart ([place] (5/325)) 1 tab Q6H PRN PO .MOD PAIN 4- 6; Start 03/14/19 at 23:00 Acetaminophen/ Hydrocodone Bitart ([place] (5/325)) 2 tab Q6H PRN PO .SEVERE PAIN 7-10 Last administered on 03/16/19 16:02; Admin Dose 2 TAB; Start 03/14/19 at 23:00 Docusate Sodium (Colace) 100 mg Q12H PRN PO .CONSTIPATION; Start 03/14/19 at 23:00 Magnesium Hydroxide (Milk Of Mag) 30 ml DAILY PRN PO .CONSTIPATION; Start 03/14/19 at 23:00 Sodium Biphosphate/ Sodium Phosphate (Fleet Enema) 133 ml DAILY PRN MD .CONSTIPATION; Start 03/14/19 at 23:00 Zolpidem Tartrate (Ambien) 5 mg QHS PRN PO .INSOMNIA; Start 03/14/19 at 23:00 Famotidine (Pepcid) 20 mg DAILY PO Last administered on 03/17/19 08:35; Admin Dose 20 MG; Start 03/15/19 at 09:00 Amlodipine Besylate (Norvasc) 5 mg DAILY PO Last administered on 03/17/19 08:37; Admin Dose 5 MG; Start 03/15/19 at 09:00 Atorvastatin Calcium (Lipitor) 40 mg QHS PO Last administered on 03/17/19 21:08; Admin Dose 40 MG; Start 03/15/19 at 21:00 Cilostazol (Pletal) 50 mg BID PO Last administered on 03/17/19 21:07; Admin Dose 50 MG; Start 03/15/19 at 09:00 Glycopyrrolate (Robinul) 1 mg BID PO Last administered on 03/17/19 21:08; Admin Dose 1 MG; Start 03/15/19 at 09:00 Metoclopramide HCl (Reglan) 5 mg AC MEALS PO Last administered on 03/18/19 06:48; Admin Dose 5 MG; Start 03/15/19 at 07:00 Linagliptin (Tradjenta) 5 mg DAILY PO Last administered on 03/17/19 08:35; Admin Dose 5 MG; Start 03/15/19 at 09:00 Diagnostic Test (Pha) (Accu-Chek) 1 ea AC MEALS AND BEDTIME XX Last administered on 03/15/19 21:00; Admin Dose 1 EA; Start 03/15/19 at 07:00 Vancomycin HCl (Vanco Iv Per Pharmacy) VANCOMYCIN PER PHARMACY PER PROTOCOL XX ; Start 03/14/19 at 23:30 Carvedilol (Coreg) 12.5 mg BID PO Last administered on 03/17/19 21:09; Admin Dose 12.5 MG; Start 03/15/19 at 09:00 Piperacillin Sod/ Tazobactam Sod 50 ml @ 100 mls/hr Q8 IVPB Last administered on 03/18/19 05:55; Admin Dose 100 MLS/HR; Start 03/16/19 at 14:00 Heparin Sodium (Porcine) (Heparin (5000 Units/1ml)) 5,000 unit BID SC Last administered on 03/17/19 21:42; Admin Dose 5,000 UNIT; Start 03/16/19 at 21:00 Epoetin Joseph-epbx (Retacrit (Non-Esrd)) 10,000 unit TuThSa@1700 SC Last administered on 03/17/19 18:35; Admin Dose 10,000 UNIT; Start 03/17/19 at 17:00 Ferrous Sulfate (Ferrous Sulfate (Ec)) 325 mg TID PO Last administered on 03/17/19 21:08; Admin Dose 325 MG; Start 03/16/19 at 21:00 Sodium Chloride 1,000 ml @ 80 mls/hr [id number] IV Last administered on 03/18/19 06:48; Admin Dose 80 MLS/HR; Start 03/17/19 at 18:00 Ferric Sodium Gluconate Complex 125 mg/Sodium Chloride 110 ml @ 110 mls/hr DAILY@1300 IVPB ; Start 03/18/19 at 13:00; Stop 03/22/19 at 13:59; Status UNV Allergies: Coded Allergies: No Known Allergy (Unverified , 01/29/19) Past Surgical History Past Surgical Hx: other (Left GT amputation) Social History Alcohol Use: none Smoking Status: Former smoker Drug Use: none Exam/Review of Systems Vital Signs Vitals Vital Signs Date Temp Pulse Resp B/P (MAP) Pulse Ox O2 O2 Flow FiO2 Time Delivery Rate 03/18/19 98.4 84 18 137/69 96 01:26 (91) 03/16/19 Room Air 14:34 Intake and Output 03/17/19 03/17/19 03/18/19 1515:00 23:00 07:00 IntakeIntake Total 290 ml 350 ml 1050 ml OutputOutput Total 300 ml 650 ml BalanceBalance -10 ml 350 ml 400 ml Labs Result Diagram: 03/18/19 0503/18/19 0521 Results 24hrs Laboratory Tests Test 03/17/19 12:17 03/17/19 17:21 03/17/19 21:05 03/18/19 05:21 Bedside Glucose 154 135 127 White Blood Count 10.4 Red Blood Count 2.56 L Hemoglobin 7.8 L Hematocrit 21.9 L Mean Corpuscular Volume 85.5 Mean Corpuscular 30.5 Hemoglobin Mean Corpuscular 35.6 Hemoglobin Concent Red Cell Distribution 11.9 Width Platelet Count 377 Mean Platelet Volume 9.7 Immature Granulocytes % 0.700 H Neutrophils % 77.3 H Lymphocytes % 10.7 L Monocytes % 8.9 Eosinophils % 2.0 Basophils % 0.4 Nucleated Red Blood 0.0 Cells % Immature Granulocytes # 0.070 H Neutrophils # 8.0 H Lymphocytes # 1.1 Monocytes # 0.9 Eosinophils # 0.2 Basophils # 0.0 Nucleated Red Blood 0.0 Cells # Sodium Level 136 Potassium Level 4.2 Chloride Level 107 Carbon Dioxide Level 20 L Anion Gap 9 Blood Urea Nitrogen 33 H Creatinine 4.29 H Est Glomerular Filtrat 14 L Rate mL/min Glucose Level 98 Calcium Level 7.9 L Iron Level 21 L Total Iron Binding 138 L Capacity Percent Iron Saturation 15 L Ferritin 239.0 Vitamin B12 Level 840 Medications Medications Current Medications IV Flush (NS 3 ml) 3 ml PER PROTOCOL IV ; Start 03/14/19 at 23:00 Ondansetron HCl (Zofran Tab) 4 mg Q6H PRN PO NAUSEA/VOMITING Last administered on 03/17/19 08:44; Admin Dose 4 MG; Start 03/14/19 at 23:00 Acetaminophen/ Hydrocodone Bitart ([place] (5/325)) 1 tab Q6H PRN PO .MOD PAIN 4- 6; Start 03/14/19 at 23:00 Acetaminophen/ Hydrocodone Bitart ([place] (5/325)) 2 tab Q6H PRN PO .SEVERE PAIN 7-10 Last administered on 03/16/19 16:02; Admin Dose 2 TAB; Start 03/14/19 at 23:00 Docusate Sodium (Colace) 100 mg Q12H PRN PO .CONSTIPATION; Start 03/14/19 at 23:00 Magnesium Hydroxide (Milk Of Mag) 30 ml DAILY PRN PO .CONSTIPATION; Start 03/14/19 at 23:00 Sodium Biphosphate/ Sodium Phosphate (Fleet Enema) 133 ml DAILY PRN MD .CONSTIPATION; Start 03/14/19 at 23:00 Zolpidem Tartrate (Ambien) 5 mg QHS PRN PO .INSOMNIA; Start 03/14/19 at 23:00 Famotidine (Pepcid) 20 mg DAILY PO Last administered on 03/17/19 08:35; Admin Dose 20 MG; Start 03/15/19 at 09:00 Amlodipine Besylate (Norvasc) 5 mg DAILY PO Last administered on 03/17/19 08:37; Admin Dose 5 MG; Start 03/15/19 at 09:00 Atorvastatin Calcium (Lipitor) 40 mg QHS PO Last administered on 03/17/19 21:08; Admin Dose 40 MG; Start 03/15/19 at 21:00 Cilostazol (Pletal) 50 mg BID PO Last administered on 03/17/19 21:07; Admin Dose 50 MG; Start 03/15/19 at 09:00 Glycopyrrolate (Robinul) 1 mg BID PO Last administered on 03/17/19 21:08; Admin Dose 1 MG; Start 03/15/19 at 09:00 Metoclopramide HCl (Reglan) 5 mg AC MEALS PO Last administered on 03/18/19 06:48; Admin Dose 5 MG; Start 03/15/19 at 07:00 Linagliptin (Tradjenta) 5 mg DAILY PO Last administered on 03/17/19 08:35; Admin Dose 5 MG; Start 03/15/19 at 09:00 Diagnostic Test (Pha) (Accu-Chek) 1 ea AC MEALS AND BEDTIME XX Last adminis tered on 03/15/19at 21:00; Admin Dose 1 EA; Start 03/15/19 at 07:00 Vancomycin HCl (Vanco Iv Per Pharmacy) VANCOMYCIN PER PHARMACY PER PROTOCOL XX ; Start 03/14/19 at 23:30 Carvedilol (Coreg) 12.5 mg BID PO Last administered on 03/17/19 21:09; Admin Dose 12.5 MG; Start 03/15/19 at 09:00 Piperacillin Sod/ Tazobactam Sod 50 ml @ 100 mls/hr Q8 IVPB Last administered on 03/18/19 05:55; Admin Dose 100 MLS/HR; Start 03/16/19 at 14:00 Heparin Sodium (Porcine) (Heparin (5000 Units/1ml)) 5,000 unit BID SC Last administered on 03/17/19at 21:42; Admin Dose 5,000 UNIT; Start 03/16/19 at 21:00 Epoetin Joseph-epbx (Retacrit (Non-Esrd)) 10,000 unit TuThSa@1700 SC Last administered on 03/17/19 18:35; Admin Dose 10,000 UNIT; Start 03/17/19 at 17:00 Ferrous Sulfate (Ferrous Sulfate (Ec)) 325 mg TID PO Last administered on 03/17/19 21:08; Admin Dose 325 MG; Start 03/16/19 at 21:00 Sodium Chloride 1,000 ml @ 80 mls/hr [id number] IV Last administered on 03/18/19 06:48; Admin Dose 80 MLS/HR; Start 03/17/19 at 18:00 Ferric Sodium Gluconate Complex 125 mg/Sodium Chloride 110 ml @ 110 mls/hr DAILY@1300 IVPB ; Start 03/18/19 at 13:00; Stop 03/22/19 at 13:59; Status DOT RODRIGUEZ MD Mar 18, 2019 08:01
[2019-03-18] MEDS: AMLODIPINE 5 MG TAB PO SCH (08:34)
[2019-03-18] MEDS: LINAGLIPTIN 5 MG TABLET PO SCH (08:35)
[2019-03-18] MEDS: FERROUS SULFATE (EC) 325 MG TAB PO SCH ×3 (08:35→21:04)
[2019-03-18] MEDS: FAMOTIDINE 20 MG TAB PO SCH (08:35)
[2019-03-18] MEDS: GLYCOPYRROLATE 1 MG TAB PO SCH ×2 (08:35→21:04)
[2019-03-18] MEDS: CILOSTAZOL 100 MG TAB PO SCH ×2 (08:35→21:05)
[2019-03-18] MEDS ORDERED: SOD CHLORIDE 0.9% 250 ML IV* ONE (08:41)
[2019-03-18] MEDS: HEPARIN 5,000 UNIT/1 ML VIAL SC SCH ×2 (09:03→21:10)
--- NOTE | 2019-03-18 09:26 | CONS ---
DATE OF ADMISSION: 03/14/2019 DATE OF CONSULTATION: 03/18/2019 TYPE OF CONSULTATION: Renal consultative note to Dr. Michele Mtz. Thank you very much for allowing me to evaluate the above patient, admitted on the above date with si gns and symptoms of gangrene involving the first and second toe with known chronic renal insufficienc y. HISTORICAL EVENTS: With respect to his renal insufficiency, he does have known chronic impairment se condary to diabetic glomerulosclerosis. As you well know, he was admitted here in mid January of this ye ar with increased elevation, the cause of which was unclear, and at that time, had a renal ultrasound that revealed no obstruction. His serum creatinine ranged between 3.25 and 3.98. His protein creat inine ratio was 15.63. Both the serum and immunoelectrophoresis was unrevealing. KOJO and ANCA was n egative as well. At that time, he did have evidence of a right popliteal artery occlusion. He was a dmitted here on the with right foot pain and evidence of gangrene involving the toes of his righ t foot. He was seen by vascular surgery and podiatry. Antibiotics were instituted and butler is vascul ar intervention followed by an amputation of his toes. He requested consultation because of mild wor sening of his renal insufficiency. He presently denies shortness of breath, chest pain, nausea, vomi ting, abdominal pain, diarrhea. Has no difficulty initiating his urinary stream. Denies dysuria or hematuria. PAST MEDICAL HISTORY: Well known to includes longstanding diabetes, hypertension, and chronic renal insufficiency along with peripheral vascular disease, having had prior toe amputations. FAMILY HISTORY: Significant for diabetes and cancer. 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 PRESENT MEDICATIONS: Include: 1. Epogen. 2. Iron tablets. 3. Lipitor. 4. Pepcid 20 mg per day. 5. Amlodipine 5 mg per day. 6. Pletal 50 mg b.i.d. 7. Robinul 1 mg b.i.d. 8. Tradjenta 5 mg per day. 9. Coreg 12.5 mg per day. 10. Reglan 5 mg a.c. meals. 11. Docusate sodium. 12. Ambien 5 mg at bedtime. PHYSICAL EXAMINATION: VITAL SIGNS: Blood pressure 136/78, pulse 72, respirations were 18. He was afebrile. EYES: Extraocular muscles were full. NOSE, MOUTH, AND THROAT: Normal. NECK: Supple without jugular venous distention, thyroid enlargement or adenopathy. LUNGS: Clear. HEART: Rhythm regular, I/ systolic murmur. No third or fourth sound. ABDOMEN: Nontender. Liver and spleen were not palpable. There was no tenderness or masses. EXTREMITIES: Reduced pulses. The right foot was bandaged. LABORATORY AND DIAGNOSTIC STUDIES: On March 14, his creatinine was 4.38. On March 15 is 3.85, yes terday was 4.46, and today of 4.29. His hematocrit on admission was 27.3 and today it was 21.9, whit e count and platelet count were normal. His electrolytes were normal. Iron sats were 15%, ferritin is pending. Mag and phosphorus pending as well. IMPRESSION: 1. Chronic renal insufficiency secondary to diabetic glomerulosclerosis, now improvement in his seru m creatinine to a slight rise. I doubt it was related to vancomycin given the short course of the sa me. It may be simply functional related to changes in intravascular volume, having received normal s robb and having achieved a positive fluid balance. 2. Peripheral vascular disease. Will require both vascular intervention as well as ultimate amputat ion. 3. Gangrene involving the toes of his right foot. 4. Severe anemia. We will consider transfusing him prior to discharge. Stool for OB was ordered. He is already on iron. We will follow with you. Dictated By: DOT ASHLEY MD MR/NTS Conf#: [id number] DID#: [id number] CC: OLIVIA FAN MD; WALTER LOWERY MD;*End*
[2019-03-18] MEDS ORDERED: SOD FERRIC GLUC COMPLX 125 MG in SOD CHLORIDE 0.9% 100 ML IVPB SCH (13:00)
[2019-03-18 13:47] VITALS: BP 142/68; PULSE 84; RESP 17
--- NOTE | 2019-03-18 14:39 | PN ---
Date/Time of Note Date/Time of Note DATE: 03/18/19 TIME: 14:38 Assessment/Plan Lines/Catheters IV Catheter Type (from [facility]): Peripheral IV River in Place (from [facility]): No Assessment/Plan Assessment/Plan R foot gangrene, anemia, CKD, PAD - scheduled for R fem-PT bypass Saturday 7:30 AM Subjective 24 Hr Interval Summary No new c/o. Exam/Review of Systems Vital Signs Vitals Vital Signs Date Temp Pulse Resp B/P (MAP) Pulse Ox O2 O2 Flow FiO2 Time Delivery Rate 03/18/19 97.4 84 17 142/68 95 Room Air 13:47 (92) Intake and Output 03/17/19 03/17/19 03/18/19 1414:59 22:59 06:59 IntakeIntake Total 290 ml 350 ml 1050 ml OutputOutput Total 300 ml 650 ml BalanceBalance -10 ml 350 ml 400 ml Exam Free Text/Dictation R foot gangrene - toes are wrapped, no staining Results Result Diagram: 03/18/19 0521 03/18/19 0521 WALTER LOWERY MD Mar 18, 2019 14:39
--- NOTE | 2019-03-18 18:49 | PDOCDIS ---
Discharge Instructions DIAGNOSIS Discharge Diagnosis R 1st and second toe gangrene CONDITION [id number] Patient Condition: [id number] Serious HOME CARE INSTRUCTIONS: [id number] Diet Instructions: [id number] low carb, renal ACTIVITY: [id number] Activity Restrictions: [id number] Partial Weight Bearing (R foot) [id number] Bathing Restrictions: [id number] Shower FOLLOW UP/APPOINTMENTS Follow-up Plan return to hospital early am 03/23/19 for vascular procedure w/ Dr. Monaco. Recommend call [phone] on 03/20/19 for instructions. JOSE PARRY MD Mar 18, 2019 18:49
[2019-03-18] MEDS ORDERED: AMOX1TAB10 PO (18:52)
[2019-03-18] MEDS ORDERED: HYDR-3601 PO (18:52)
[2019-03-18] MEDS ORDERED: LINA5TAB PO (18:52)
[2019-03-18] MEDS ORDERED: FER325 PO (18:52)
--- NOTE | 2019-03-18 19:00 | DS ---
Date/Time of Note Date/Time of Note DATE: 03/18/19 TIME: 18:56 Discharge Summary Admission/Discharge Info Admit Date/Time Mar 14, 2019 at 22:19 Discharge Date/Time 03/19/2019 @ 0800 Discharge Diagnosis R 1st and second toe gangrene Patient Condition: Serious Consults Carlos Enrique: vascular surgery; Romoff: nephrology; Kosari: podiatry Procedures None Hx of Present Illness 68 year old man with multiple medical issues presents to the [facility] with complaint of severe pain right foot. States injured his foot a few weeks ago and noted a small pinpoint laceration which he thought would heal, but after about a week noted swelling and discoloration. He has been in contact with his physician primary care sports medicine and vascular surgeon, and he was scheduled for an intervention/procedure tomorrow SaturdayMarch 16 but came to the [facility] last night with excruciating pain in the foot and noted that the second and third toes where fused. Hospital Course Started IV vanco/zosyn w/ normalization of WBC and pain well-controlled easily. Pt. scheduled for vascular procedure for next week. W/ creatinine elevated nephrology evaluated patient. Suggested PRBC transfusion might help stabilize creatinine. 1 unit PRBC given. Pt. stable. Infection controlled. Plan for bypass next week w/ likely TMTA to follow. Pt. ok to go home when he finishes PRBC transfusion (which should finish tonight; he can go home in am) w/ plan to return next week for his procedure. Home Meds Active Scripts Amoxicillin/Potassium Clav (Amox-Clav 875-125 mg Tablet) 875-125 mg Tab, 1 TAB PO BID for 5 Days, #10 TAB 0 Refills Prov:JOSE PARRY MD 03/18/19 Linagliptin (TRADJENTA) 5 Mg Tablet, 5 MG PO DAILY for 30 Days, #30 TAB 3 Refills Prov:JOSE PARRY MD 03/18/19 Ferrous Sulfate* (Ferrous Sulfate*) 325 Mg Tabec, 325 MG PO TID for 30 Days, #90 TAB 2 Refills Prov:JOSE PARRY MD 03/18/19 Ranitidine Hcl* (Ranitidine Hcl*) 150 Mg Tablet, 150 MG PO DAILY for 30 Days, #30 TAB 5 Refills Prov:JOSE PARRY MD 02/02/19 Metoclopramide Hcl* (Metoclopramide Hcl*) 5 Mg Tablet, 5 MG PO AC MEALS for 30 Days, #90 TAB 5 Refills Prov:JOSE PARRY MD 02/02/19 Carvedilol* (Carvedilol*) 12.5 Mg Tablet, 12.5 MG PO BID for 30 Days, #60 TAB 5 Refills Prov:JOSE PARRY MD 02/02/19 Cilostazol* (Cilostazol*) 100 Mg Tablet, 50 MG PO BID for 30 Days, #30 TAB 5 Refills Prov:JOSE PARRY MD 02/02/19 Alfuzosin Hcl* (Alfuzosin Hcl*) 10 Mg Tab.er.24h, 10 MG PO HS for 30 Days, #30 TAB 5 Refills Prov:JOSE PARRY MD 02/02/19 Reported Medications Glycopyrrolate* (Glycopyrrolate*) 1 Mg Tablet, 1 MG PO BID, TAB 01/29/19 Amlodipine Besylate* (Norvasc*) 5 Mg Tablet, 5 MG PO DAILY, TAB 01/29/19 Ergocalciferol (Vitamin D2) (VITAMIN D2) 50,000 Unit Capsule, 48013 UNIT PO Q FRI, CAP 01/29/19 Atorvastatin* (Atorvastatin*) 40 Mg Tablet, 40 MG PO QHS, #30 TAB 01/29/19 Dulaglutide (Trulicity) 1.5 Mg/0.5 Ml Pen.injctr, 1.5 MG SQ Q SUN 01/29/19 Follow-up Plan return to hospital early am 03/23/19 for vascular procedure w/ Dr. Monaco. Recommend call [phone] on 03/20/19 for instructions. Primary Care Provider Not On Staff Doctor Time spent on discharge: > 30 minutes Pending Labs Laboratory Tests Test 03/17/19 21:05 03/18/19 05:21 03/18/19 08:32 03/18/19 09:52 Bedside 127 95 Glucose mg/dL (70-220) mg/dL (70-220) White Blood 10.4 Count 10^3/ul (4.8-1 0.8) Red Blood 2.56 Count 10^6/ul (4.70- 6.10) Hemoglobin 7.8 g/dl (14.0-18. 0) Hematocrit 21.9 % (42.0-52.0) Mean 85.5 Corpuscular fl (82.0-101.0 Volume ) Mean 30.5 Corpuscular pg (29.0-33.0) Hemoglobin Mean 35.6 Corpuscular g/dl (32.0-37. Hemoglobin Conc 0) ent Red Cell 11.9 Distribution % (11.5-14.5) Width Platelet Count 377 10^3/UL (140-4 15) Mean Platelet 9.7 Volume fl (7.4-10.4) Immature 0.700 Granulocytes % % (0.001-0.429 ) Neutrophils % 77.3 % (39.0-77.0) Lymphocytes % 10.7 % (15.0-51.0) Monocytes % 8.9 % (0.0-11.0) Eosinophils % 2.0 % (0.0-7.0) Basophils % 0.4 % (0.0-2.0) Nucleated Red 0.0 Blood Cells % /100WBC (0.0-0 .0) Immature 0.070 Granulocytes # 10^3/ul (0.0-0 .031) Neutrophils # 8.0 10^3/ul (1.6-7 .5) Lymphocytes # 1.1 10^3/ul (0.8-2 .9) Monocytes # 0.9 10^3/ul (0.3-0 .9) Eosinophils # 0.2 10^3/ul (0.0-0 .5) Basophils # 0.0 10^3/ul (0.0-0 .1) Nucleated Red 0.0 Blood Cells # 10^3/ul (0.0-0 .0) Sodium Level 136 mmol/L (135-14 4) Potassium 4.2 Level mmol/L (3.5-5. 1) Chloride Level 107 mmol/L (97-110 ) Carbon Dioxide 20 Level mmol/L (21-31) Anion Gap 9 (5-13) Blood Urea 33 Nitrogen mg/dl (7-20) Creatinine 4.29 mg/dl (0.61-1. 24) Est Glomerular 14 Filtrat mL/min (>60) Rate mL/min Glucose Level 98 mg/dl (70-220) Calcium Level 7.9 mg/dl (8.4-10. 2) Iron Level 21 ug/dl (35-150) Total Iron 138 Binding ug/dl (241-421 Capacity ) Percent Iron 15 % Saturation SAT (22-52) Ferritin 239.0 ng/ml (11.1-26 4.0) Vitamin B12 840 Level pg/ml (239-931 ) Urine Random 63.58 Creatinine mg/dl (20-370) Urine Random 53 Sodium mmol/L (30-90) Urine 6.02 RATIO Protein/Creatin ine Ratio Urine Total 383.0 Protein mg/dl (0.0-11. 9) Test 03/18/19 12:55 03/18/19 17:25 Bedside 105 118 Glucose mg/dL (70-220) mg/dL (70-220) JOSE PARRY MD Mar 18, 2019 19:00
[2019-03-18 20:00] VITALS: BP 140/75; PULSE 92; RESP 19
[2019-03-18] MEDS: ATORVASTATIN 40 MG TAB PO SCH (21:04)
[2019-03-19 02:00] VITALS: BP 118/67; PULSE 90; RESP 17
[2019-03-19] MEDS: SOD CHLORIDE 0.9% 1,000 ML IV SCH ×2 (02:28→07:30)
[2019-03-19] MEDS: PIPER-TAZO 2.25 GM/NS 50 ML IVPB SCH (05:33)
[2019-03-19] MEDS: METOCLOPRAMIDE 5 MG TAB PO SCH (06:24)
[2019-03-19] MEDS: ACCU-CHEK XX SCH (08:18)
[2019-03-19] MEDS: CILOSTAZOL 100 MG TAB PO SCH (08:19)
[2019-03-19] MEDS: FAMOTIDINE 20 MG TAB PO SCH (08:20)
[2019-03-19] MEDS: LINAGLIPTIN 5 MG TABLET PO SCH (08:21)
[2019-03-19] MEDS: FERROUS SULFATE (EC) 325 MG TAB PO SCH (08:21)
[2019-03-19] MEDS: AMLODIPINE 5 MG TAB PO SCH (08:21)
[2019-03-19] MEDS: GLYCOPYRROLATE 1 MG TAB PO SCH (08:21)
[2019-03-19] MEDS: HEPARIN 5,000 UNIT/1 ML VIAL SC SCH (08:25)
[2019-03-19 08:30] VITALS: BP 124/60; PULSE 90; RESP 17
[2019-03-19] MEDS ORDERED: VANCOMYCIN 1 GM 250 ML IVPB SCH (10:00)
--- NOTE | 2019-03-23 07:14 | PREAC ---
Date/Time of Note Date/Time of Note DATE: 03/23/19 TIME: 07:11 Anesthesia Eval and Record Evaluation Time Pre-Procedure Interview DATE: 03/23/19 TIME: 07:11 Age 68 Sex male NPO: 8 hrs Preoperative diagnosis right popliteal occlusion Planned procedure right femoral to tibial artery bypass Past Medical History Past Medical History: Includes Cardio: HTN, Dyslipidemia, CAD Endo: Diabetes Renal: CKD Heme: Anemia Surgery & Anesthesia Issues No known issue Meds Anticoagulation: No Beta Sweta within 24 hr: Yes Active Scripts Amoxicillin/Potassium Clav (Amox-Clav 875-125 mg Tablet) 875-125 mg Tab, 1 TAB PO BID for 5 Days, #10 TAB 0 Refills Prov:JOSE PARRY MD 03/18/19 Linagliptin (TRADJENTA) 5 Mg Tablet, 5 MG PO DAILY for 30 Days, #30 TAB 3 Refills Prov:JOSE PARRY MD 03/18/19 Hydrocodone Bit-Acetaminophen (Hydrocodone Bit-APAP) 5-325MG Tablet, 1 TAB PO Q6H PRN for .MOD PAIN 4-6 for 5 Days, #20 TAB 0 Refills Prov:JOSE PARRY MD 03/18/19 Ferrous Sulfate* (Ferrous Sulfate*) 325 Mg Tabec, 325 MG PO TID for 30 Days, #90 TAB 2 Refills Prov:JOSE PARRY MD 03/18/19 Ranitidine Hcl* (Ranitidine Hcl*) 150 Mg Tablet, 150 MG PO DAILY for 30 Days, #30 TAB 5 Refills Prov:JOSE PARRY MD 02/02/19 Metoclopramide Hcl* (Metoclopramide Hcl*) 5 Mg Tablet, 5 MG PO AC MEALS for 30 Days, #90 TAB 5 Refills Prov:JOSE PARRY MD 02/02/19 Carvedilol* (Carvedilol*) 12.5 Mg Tablet, 12.5 MG PO BID for 30 Days, #60 TAB 5 Refills Prov:JOSE PARRY MD 02/02/19 Cilostazol* (Cilostazol*) 100 Mg Tablet, 50 MG PO BID for 30 Days, #30 TAB 5 Refills Prov:JOSE PARRY MD 02/02/19 Reported Medications Glycopyrrolate* (Glycopyrrolate*) 1 Mg Tablet, 1 MG PO BID, TAB 01/29/19 Amlodipine Besylate* (Norvasc*) 5 Mg Tablet, 5 MG PO DAILY, TAB 01/29/19 Ergocalciferol (Vitamin D2) (VITAMIN D2) 50,000 Unit Capsule, 72964 UNIT PO Q FRI, CAP 01/29/19 Atorvastatin* (Atorvastatin*) 40 Mg Tablet, 40 MG PO QHS, #30 TAB 01/29/19 Discontinued Reported Medications Dulaglutide (Trulicity) 1.5 Mg/0.5 Ml Pen.injctr, 1.5 MG SQ Q SUN 01/29/19 Discontinued Scripts Alfuzosin Hcl* (Alfuzosin Hcl*) 10 Mg Tab.er.24h, 10 MG PO HS for 30 Days, #30 TAB 5 Refills Prov:JOSE PARRY MD 02/02/19 Meds reviewed: Yes Allergies Coded Allergies: No Known Allergy (Unverified , 03/23/19) Allergies Reviewed: Yes Labs/Studies Labs Reviewed: Reviewed by anesthesiologist Result Diagram: 03/19/19 0502 03/19/19 0502 test: N/A Studies: ECG, CXR Pre-procedure Exam Last vitals Vital Signs Date Temp Pulse Resp B/P (MAP) Pulse Ox O2 O2 Flow FiO2 Time Delivery Rate 03/19/19 98.1 90 17 124/60 96 Room Air 08:30 (81) Airway: Adequate mouth opening, Adequate thyromental dist Mallampati: Mallampati II Teeth: Normal Lung: Normal Heart: Normal ASA Physical Status ASA physical status: 3 Emergency: None Planned Anesthetic General/MAC: ETT, A Line Planned Pain Management Parenteral pain med Pre-operative Attestations Prior to commencing anesthesia and surgery, the patient was re-evaluated, there was verification of: *The patient's identity *The results of appropriate recent lab work and preoperative vital signs *The above evaluation not changing prior to induction *Anesthetic plan, risk benefits, alternative and complications discussed with patient/family; questions answered; patient/family understands, accepts and wishes to proceed. NATHAN PARMAR Mar 23, 2019 07:14
[2019-03-23] MEDS ORDERED: GELATIN SIZE 100 SPONGE TOP ONE (07:15)
[2019-03-23] MEDS ORDERED: HEPARIN 1000 UNITS/ML 10 ML INJ IRR ONE (07:15)
[2019-03-23] MEDS ORDERED: THROMBIN 5000 UNIT VIAL TOP ONE (08:56)
--- NOTE | 2019-03-23 11:27 | PAC ---
Date/Time of Note Date/Time of Note DATE: 03/23/19 TIME: 11:27 Post-Anesthesia Notes Post-Anesthesia Note Last documented vital signs Vital Signs Date Temp Pulse Resp B/P (MAP) Pulse Ox O2 O2 Flow FiO2 Time Delivery Rate 03/19/19 98.1 90 17 124/60 96 Room Air 1125 (81) Activity: WNL Respiratory function: WNL Cardiovascular function: WNL Mental status: Baseline Pain reasonably controlled: Yes Hydration appropriate: Yes Nausea/Vomiting absent: Yes NATHAN PARMAR Mar 23, 2019 11:27
== END 2019-03-19 11:45 | disposition home or self-care (01) | DRG 872 ==
LOC: E/R 18:16 → 2NE 22:19
PROVIDERS: ADMIT Internal Medicine; ATTEND Internal Medicine
PROC: 30233N1 Transfusion of Nonautologous Red Blood Cells into Peripheral Vein, Percutaneous Approach (ICD-10-PCS; principal; 2019-03-18)
DX: A41.9 Sepsis, unspecified organism (principal); E11.52 Type 2 diabetes mellitus with diabetic peripheral angiopathy with gangrene; N18.4 Chronic kidney disease, stage 4 (severe); I96 Gangrene, not elsewhere classified; L03.115 Cellulitis of right lower limb; E11.22 Type 2 diabetes mellitus with diabetic chronic kidney disease; I12.9 Hypertensive chronic kidney disease with stage 1 through stage 4 chronic kidney disease, or unspecified chronic kidney disease; I99.8 Other disorder of circulatory system; E11.42 Type 2 diabetes mellitus with diabetic polyneuropathy; K11.7 Disturbances of salivary secretion; E78.5 Hyperlipidemia, unspecified; D64.9 Anemia, unspecified; I25.10 Atherosclerotic heart disease of native coronary artery without angina pectoris; N40.1 Benign prostatic hyperplasia with lower urinary tract symptoms; Z87.891 Personal history of nicotine dependence; Z79.4 Long term (current) use of insulin; Z89.422 Acquired absence of other left toe(s); Z89.421 Acquired absence of other right toe(s)
CPT/HCPCS: 36430; 71045; 80048; 80053; 80202; 81001; 81003; 82270; 82570; 82607; 82728; 82962; 83036; 83540; 83605; 83735; 84100; 84300; 84484; 85025; 85610; 85730; 86850; 86900; 86901; 86920; 87086; 93005; 96365; 96367; 96375; J0692; J1644; J1650; J2270; J2405; J2543; J3370; J7030; J7040; P9016; Q5106

== ENCOUNTER 2019-03-23 06:13 | Inpatient (IN) | payer MEDICARE, OTHER ==
[~2019-03-23] VITALS: Ht 154.9 cm; Wt 68.7 kg
[2019-03-23] VITALS (51 sets, daily range): BP systolic 116–186; BP diastolic 43–85; PULSE 63–101; RESP 8–20; Ht 154.9 cm; Wt 68.7 kg
[~2019-03-23 06:13] MED LIST changes: -ALFU10TA2 PO; +AMOX1TAB10 PO; +ASPI-831 PO; +CARV25TA79 PO; -DULA1.5P SQ; +EPOETIN ALFA EPBX SC; +FER325 PO; +HYDR-3601 PO; +Insulin Glargine SC; +LINA5TAB PO; +LOSA25TA2 PO; +NEPH PO
[2019-03-23] MEDS ORDERED: GELATIN SIZE 100 SPONGE ONE (06:53)
[2019-03-23] MEDS ORDERED: HEPARIN 1000 UNITS/ML 10 ML INJ ONE (06:53)
[2019-03-23] MEDS ORDERED: THROMBIN 5000 UNIT (RECOTHROM) VIAL ONE (06:53)
--- NOTE | 2019-03-23 06:59 | HPN ---
Date/Time of Note Date/Time of Note DATE: 03/23/19 TIME: 06:59 Interval H&P Admission Note Pt. seen H&P reviewed: No system changes WALTER LOWERY MD Mar 23, 2019 06:59
[2019-03-23] MEDS ORDERED: HEPARIN 1000 UNITS/ML 10 ML INJ IRR ONE (07:15)
[2019-03-23] MEDS ORDERED: ONDANSETRON 4 MG INJ ONE ×2 (07:30→11:51)
[2019-03-23] MEDS ORDERED: DEXAMETHASONE 4 MG/ML 5 ML INJ ONE (07:30)
[2019-03-23] MEDS ORDERED: SEVOFLURANE 15 MIN ONE (07:30)
[2019-03-23] MEDS ORDERED: PROPOFOL 0 ML ONE (07:31)
[2019-03-23] MEDS ORDERED: LIDOCAINE 2% (SDV) 5 ML INJ ONE (07:31)
[2019-03-23] MEDS ORDERED: ROCURONIUM 50 MG INJ ONE ×2 (07:32→10:49)
[2019-03-23] MEDS ORDERED: GELATIN SIZE 100 SPONGE TOP ONE (08:15)
[2019-03-23] MEDS ORDERED: THROMBIN 5000 UNIT (RECOTHROM) VIAL TOP ONE (10:27)
[2019-03-23] MEDS ORDERED: PROPOFOL 20 ML ONE (10:49)
[2019-03-23] MEDS ORDERED: CEFAZOLIN 1 GM INJ ONE (10:49)
[2019-03-23] MEDS ORDERED: GLYCOPYRROLATE 0.4 MG INJ ONE (10:54)
[2019-03-23] MEDS ORDERED: NEOSTIGMINE 3 MG/3 ML SYRINGE ONE (10:54)
[2019-03-23] MEDS ORDERED: LABETALOL HCL 20MG INJ ONE (11:01)
--- NOTE | 2019-03-23 11:13 | SIPON ---
Date/Time of Note Date/Time of Note DATE: 03/23/19 TIME: 11:10 Operative Report Preoperative Diagnosis R foot gangrene Postoperative Diagnosis same Operation/Procedure Performed R fem-PT bypass with in-situ GSV Surgeon see signature line team assistant TANYA Zamudio Anesthesia: general Estimated blood loss: 100 - 150 ml's Transfusion Required none Specimen femoral artery plaque Grafts/Implants none Complications none WALTER LOWERY MD Mar 23, 2019 11:13
--- NOTE | 2019-03-23 11:26 | PAC ---
Date/Time of Note Date/Time of Note DATE: 03/23/19 TIME: 11:25 Post-Anesthesia Notes Post-Anesthesia Note Last documented vital signs Vital Signs Date Temp Pulse Resp B/P (MAP) Pulse Ox O2 O2 Flow FiO2 Time Delivery Rate 03/23/19 98.8 101 19 186/85 97 Room Air 1125 (118) Activity: WNL Respiratory function: WNL Cardiovascular function: WNL Mental status: Baseline Pain reasonably controlled: Yes Hydration appropriate: Yes Nausea/Vomiting absent: Yes NATHAN PARMAR Mar 23, 2019 11:26
[2019-03-23] MEDS ORDERED: LABETALOL HCL 20MG INJ IV PRN (11:30)
[2019-03-23] MEDS ORDERED: MEPERIDINE 25 MG INJ IV PRN (11:30)
[2019-03-23] MEDS ORDERED: MIDAZOLAM 1 MG/ML 2 ML INJ IV PRN (11:30)
[2019-03-23] MEDS ORDERED: EPHEDrine 25 MG/5 ML SYG IV PRN (11:30)
[2019-03-23] MEDS ORDERED: ASPIRIN 81 MG TAB PO ONE (11:30)
[2019-03-23] MEDS ORDERED: HYDROmorphONE 0.5 MG/0.5 ML SYG IV PRN ×2 (11:30)
[2019-03-23] MEDS ORDERED: DIPHENHYDRAMINE 50 MG INJ IV PRN (11:30)
[2019-03-23] MEDS ORDERED: ALBUTEROL 0.083% (NEB) 2.5 MG/3 ML AMP HHN PRN (11:30)
[2019-03-23] MEDS ORDERED: niCARdipine 50 MG in SOD CHLORIDE 0.9% 480 ML IV SCH (11:30)
--- NOTE | 2019-03-23 11:31 | PREAC ---
Date/Time of Note Date/Time of Note DATE: 03/23/19 TIME: 11:28 Anesthesia Eval and Record Evaluation Time Pre-Procedure Interview DATE: 03/23/19 TIME: 07:14 Age 68 Sex male NPO: 8 hrs Preoperative diagnosis right popliteal artery occlusion Planned procedure right femoral to tibial bypass Past Medical History Past Medical History: Includes Cardio: HTN, Dyslipidemia, CAD Endo: Diabetes Renal: CKD Heme: Anemia Surgery & Anesthesia Issues No known issue Meds Anticoagulation: No Beta Sweta within 24 hr: Yes Active Scripts Amoxicillin/Potassium Clav (Amox-Clav 875-125 mg Tablet) 875-125 mg Tab, 1 TAB PO BID for 5 Days, #10 TAB 0 Refills Prov:JOSE PARRY MD 03/18/19 Linagliptin (TRADJENTA) 5 Mg Tablet, 5 MG PO DAILY for 30 Days, #30 TAB 3 Refills Prov:JOSE PARRY MD 03/18/19 Hydrocodone Bit-Acetaminophen (Hydrocodone Bit-APAP) 5-325MG Tablet, 1 TAB PO Q6H PRN for .MOD PAIN 4-6 for 5 Days, #20 TAB 0 Refills Prov:JOSE PARRY MD 03/18/19 Ferrous Sulfate* (Ferrous Sulfate*) 325 Mg Tabec, 325 MG PO TID for 30 Days, #90 TAB 2 Refills Prov:JOSE PARRY MD 03/18/19 Ranitidine Hcl* (Ranitidine Hcl*) 150 Mg Tablet, 150 MG PO DAILY for 30 Days, #30 TAB 5 Refills Prov:JOSE PARRY MD 02/02/19 Metoclopramide Hcl* (Metoclopramide Hcl*) 5 Mg Tablet, 5 MG PO AC MEALS for 30 Days, #90 TAB 5 Refills Prov:JOSE PARRY MD 02/02/19 Carvedilol* (Carvedilol*) 12.5 Mg Tablet, 12.5 MG PO BID for 30 Days, #60 TAB 5 Refills Prov:JOSE PARRY MD 02/02/19 Cilostazol* (Cilostazol*) 100 Mg Tablet, 50 MG PO BID for 30 Days, #30 TAB 5 Refills Prov:JOSE PARRY MD 02/02/19 Reported Medications Glycopyrrolate* (Glycopyrrolate*) 1 Mg Tablet, 1 MG PO BID, TAB 01/29/19 Amlodipine Besylate* (Norvasc*) 5 Mg Tablet, 5 MG PO DAILY, TAB 01/29/19 Ergocalciferol (Vitamin D2) (VITAMIN D2) 50,000 Unit Capsule, 14531 UNIT PO Q FRI, CAP 01/29/19 Atorvastatin* (Atorvastatin*) 40 Mg Tablet, 40 MG PO QHS, #30 TAB 01/29/19 Discontinued Reported Medications Dulaglutide (Trulicity) 1.5 Mg/0.5 Ml Pen.injctr, 1.5 MG SQ Q SUN 01/29/19 Discontinued Scripts Alfuzosin Hcl* (Alfuzosin Hcl*) 10 Mg Tab.er.24h, 10 MG PO HS for 30 Days, #30 TAB 5 Refills Prov:JOSE PARRY MD 02/02/19 Current Medications Hydromorphone HCl (Dilaudid) 0.2 mg ICU RECOVERY PRN IV MILD PAIN LEVEL 1-3; Start 03/23/19 at 11:30; Status UNV Hydromorphone HCl (Dilaudid) 0.4 mg ICU RECOVERY PRN IV MODERATE PAIN LEVEL 4-6; Start 03/23/19 at 11:30; Status UNV Hydromorphone HCl (Dilaudid) 0.6 mg ICU RECOVERY PRN IV SEVERE PAIN LEVEL 7-10; Start 03/23/19 at 11:30; Status UNV Ondansetron HCl (Zofran Inj) 4 mg ICU RECOVERY PRN IV NAUSEA/VOMITING; Start 03/23/19 at 11:30; Status UNV Labetalol HCl (Labetalol) 5 mg ICU RECOVERY PRN IV HIGH BLOOD PRESSURE; Start 03/23/19 at 11:30; Status UNV Hydralazine HCl (Apresoline) 5 mg ICU RECOVERY PRN IV HIGH BLOOD PRESSURE; Start 03/23/19 at 11:30; Status UNV Ephedrine Sulfate 5 mg PACU ORDER PRN IV BLOOD PRESSURRE SUPPORT; Start 03/23/19 at 11:30; Status UNV Albuterol (Proventil 0.083% (Neb)) 2.5 mg ICU RECOVERY PRN HHN .WHEEZING; Start 03/23/19 at 11:30; Status UNV Meperidine HCl (Demerol) 25 mg ICU RECOVERY PRN IV .RIGORS; Start 03/23/19 at 11:30; Status UNV Diphenhydramine HCl (Benadryl) 25 mg ICU RECOVERY PRN IV .PRURITUS; Start 9 at 11:30; Status UNV Midazolam HCl (Versed) 0.5 mg ICU RECOVERY PRN IV .ANXIETY; Start 03/23/19 at 11:30; Status UNV Nicardipine HCl 50 mg/Sodium Chloride 500 ml @ 50 mls/hr TITRATE IV ; Start 03/23/19 at 11:30; Status UNV Aspirin (Aspirin) 81 mg ONCE ONCE PO ; Start 03/23/19 at 11:30; Stop 03/23/19 at 11:31; Status UNV Aspirin (Aspirin) 325 mg DAILY PO ; Start 03/24/19 at 09:00; Status UNV Meds reviewed: Yes Allergies Coded Allergies: No Known Allergy (Unverified , 03/23/19) Allergies Reviewed: Yes Labs/Studies Labs Reviewed: Reviewed by anesthesiologist Result Diagram: 03/23/19 0705 Laboratory Tests 03/23/19 07:05 Blood Bank Test 03/23/19 07:05 Antibody Screen NEGATIVE Blood Type O POSITIVE test: N/A Studies: ECG, CXR Pre-procedure Exam Last vitals Vital Signs Date Temp Pulse Resp B/P (MAP) Pulse Ox O2 O2 Flow FiO2 Time Delivery Rate 03/23/19 98.8 101 19 186/85 97 Room Air 07:38 (118) Airway: Adequate mouth opening, Adequate thyromental dist Mallampati: Mallampati II Teeth: Normal Lung: Normal Heart: Normal ASA Physical Status ASA physical status: 3 Emergency: None Planned Anesthetic General/MAC: LMA, A Line Planned Pain Management Parenteral pain med Pre-operative Attestations Prior to commencing anesthesia and surgery, the patient was re-evaluated, there was verification of: *The patient's identity *The results of appropriate recent lab work and preoperative vital signs *The above evaluation not changing prior to induction *Anesthetic plan, risk benefits, alternative and complications discussed with patient/family; questions answered; patient/family understands, accepts and wishes to proceed. NATHAN PARMAR Mar 23, 2019 11:31
[2019-03-23] MEDS ORDERED: HYDROmorphONE 1 MG/ML SYG ONE (11:51)
--- NOTE | 2019-03-23 11:56 | OPR ---
DATE OF OPERATION: 03/23/2019 PREOPERATIVE DIAGNOSIS: Right foot gangrene. POSTOPERATIVE DIAGNOSIS: Right foot gangrene. PROCEDURE PERFORMED: Right SFA to posterior tibial bypass using in situ greater saphenous vein from the right thigh and calf. SURGEON: Walter Monaco M.D. TOBACCO STRIPPING MACHINE OPERATOR: TANYA Zamudio. ANESTHESIA: General endotracheal anesthesia. ESTIMATED BLOOD LOSS: 150 to 200 mL. COMPLICATIONS: There were no intraprocedural complications. INDICATIONS: A 68-year-old diabetic hypertensive gentleman. He has severe chronic kidney disease. 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 He bumped it and developed gangrene of several toes. Basically, the first and second toes are necrotic. The fifth toes have been amputated. The third and fourth toes are viable. They may need to be amputated with the TMA is well. I did a CO2 angiogram on him about 6 weeks ago. His popliteal artery occludes right at the knee but everything is patent above that. There is patent below-knee pop very small, but the main runoff is via the posterior tibial artery and it reconstitutes in the upper calf. He had a good great saphenous vein on vein mapping, so I brought him in today for right SFA to popliteal bypass using in situ greater saphenous vein. PROCEDURE: The patient was brought to the operating room and placed on the table in supine position. I mapped the great saphenous vein on the skin with him standing. I mapped the great saphenous vein on the skin once he was intubated, and we then prepped and draped the right leg in the usual sterile fashion. I began by exposing the posterior tibial artery in the mid-calf. I made an incision over the mid-calf up to the knee and carefully dissected out the great saphenous vein. There were 2 branches of the great saphenous vein. I took the one that was more in line with the incision. There was another branch that went very anterior. I dissected it out. I ligated all the side branches with 3-0 silk ties and divided them. Once I had the vein completely skeletonized from the mid-calf up to the knee. I then cut the fascia overlying the medial calf muscles. I retracted the calf muscles posteriorly. I then Bovied right along the back the posterior aspect of the tibia and so I entered the posterior tibial compartment, where the posterior tibial neurovascular bundle lies. I dissected the posterior tibial artery away from the posterior tibial vein, dissected it out for more proximally until I got to the TP trunk. TP trunk was soft, a little bit bigger vessel. I decided to start in the TP trunk and extend down into the posterior tibial, which was soft and healthy. Once the artery was well exposed at the distal target I went up to the mid- thigh. I made an incision over the great saphenous vein in the mid-thigh. I carefully dissected it out. It was a nice sized vein good and good caliber. I ligated all the side branches with 3-0 silk ties and divided them. Once I had it fully exposed, I cut the fascia overlying the medial thigh muscles and entered the plane where I could feel that the superficial femoral and popliteal pulse. I dissected right up to where to the adductor, there is a very soft area there. I cut the adductor muscles exposing the superficial femoral artery a little better. It was nice and soft and had good pulse. I decided to anastomose to the SFA in the mid- thigh. Then, I gave the patient 6000 units of heparin intravenously. I ligated the saphenous vein in the upper portion of the mid-thigh with a 2-0 silk tie to tie and divided it. I cut the first valve under direct vision. I then spatulated it and then clamped the superficial femoral artery proximally and distally in the mid-thigh level and brought to the popliteal distally. I then made a long longitudinal arteriotomy about 1 cm in length. I spatulated the upper end of the great saphenous vein to fit the arteriotomy and I anastomosed the upper end of the vein to the side of the artery using 6-0 Prolene suture in a running standard vascular surgical fashion. I removed the clamps. After flushing and there was good pulse in the graft for 5 cm and there was an obviously competent valve. I then went down to the mid-calf where I ligated the saphenous vein distally there with a 2-0 silk tie and divided it. I then passed the LeMaitre valvulotome twice from below and cut all the valves. There was one area where the valvulotome neck and a small hole in the vein, I put a 6-0 Prolene suture with good hemostasis. After that there was good outflow through the vein actually excellent flow. I then proceeded to the distal anastomosis. I clamped the TP trunk proximally and the posterior tibial, distally with a bulldog clamps. I then made about 1 cm long anterior arteriotomy, especially the distal end of the vein to fit the arteriotomy and anastomosed the distal end of vein to the side of the artery using 6-0 Prolene suture in a running standard vascular surgical fashion. There was good hemostasis. I then checked for any side branches and incompetent valve, so I listened with the Doppler and found this would branches throughout the whole segment that I had not been opened before, so I put another couple of clips on those side branches but essentially the incision went from the mid-calf to the mid-thigh about the time I was done. I then listened with the Doppler. There was a triphasic posterior tibial signal at the ankle, which became monophasic when I clamped the graft. I was happy with the result. I then made a little tunnel for the graft to lie in. It was very superficial, especially from around the knee down. I cut some of the subcutaneous fat and then made a plane of the graft to lie in. I then closed all the skin incisions in 2 layers using an inner layer of 3-0 Vicryl and an outer layer of surgical jessenia. Sterile dressing was applied. The patient was then extubated in the operating room and transferred to the ICU in stable condition. He tolerated the procedure well without any complications. Dictated By: WALTER RICHTER/VIOLET Conf#: [id number] DID#: [id number] CC: JOSE PARRY MD; DOT ASHLEY MD;*LakhwinderCC* MTDShauna
[2019-03-23] MEDS ORDERED: HEPARIN 1000 UNITS/ML 10 ML INJ IV SCH (12:00)
[2019-03-23] MEDS: HYDROmorphONE 0.5 MG/0.5 ML SYG IV PRN ×3 (12:02→15:44)
[2019-03-23] MEDS: ONDANSETRON 4 MG INJ IV PRN ×3 (12:02→20:03)
[2019-03-23] MEDS: hydrALAzine 20 MG INJ IV PRN ×2 (12:22→13:35)
[2019-03-23] MEDS ORDERED: HEPARIN 25000 UNITS/250 ML 250 ML IV SCH (12:30)
[2019-03-23] MEDS ORDERED: LACTATED RINGER'S 500 ML IV SCH (13:00)
[2019-03-23] MEDS: FERROUS SULFATE (EC) 325 MG TAB PO SCH ×2 (13:24→21:25)
[2019-03-23] MEDS: METOCLOPRAMIDE 5 MG TAB PO SCH (17:05)
--- NOTE | 2019-03-23 18:24 | CONS ---
DATE OF ADMISSION: 03/23/2019 DATE OF CONSULTATION: 03/23/2019 Thank you so much, Dr. Lowery and Dr. Mtz, for allowing me to continue in the evaluation of the ab estrada patient who was admitted today for needed right lower extremity vascular bypass. HISTORICAL EVENTS: As you well know, this patient was admitted to [facility] on 03/14/2019 when he presented with gangrenous changes involving his right lower extremity. It was felt at that t [facility] that vascular intervention would be needed followed by toe amputation. It was earlier today that the patient underwent a right SFA to posterior tibial bypass that was uncomplicated. The patient pr esently is complaining of some mild right lower extremity pain. He denies cough, wheezing, shortness of breath, nausea or vomiting and denies abdominal or chest pain. PAST MEDICAL HISTORY: 1. Longstanding diabetes. 2. Hypertension. 3. Chronic renal insufficiency with serum creatinines ranging between 3.5 and 4.4 with substantial p roteinuria as high as 15 grams for 24 hours. Serologies including immunoelectrophoresis of the blood and urine, ANCA and KOJO were all negative. FAMILY HISTORY: Positive for diabetes and cancer. SOCIAL HISTORY: He is a former smoker. 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 MEDICATIONS: Prior to admission include: 1. Pepcid 20 per day. 2. Amlodipine 5 per day. 3. Pletal 50 mg b.i.d. 4. Tradjenta 5 mg per day. 5. Coreg 12.5 b.i.d. 6. Reglan 5 mg a.c. meals. 7. Ambien 5 mg at bedtime. PHYSICAL EXAMINATION: GENERAL: Chronically ill male in no acute distress. VITAL SIGNS: BP 128/76, pulse 72, respirations were 18. He was afebrile. EYES: Extraocular muscles were full. NOSE, MOUTH, AND THROAT: Normal. NECK: Supple. There was no jugular venous distention, thyroid enlargement or adenopathy. LUNGS: Clear. HEART: Rhythm regular, I/ systolic murmur. No third or fourth sound. ABDOMEN: Nontender. Liver and spleen were not palpable. No mass or tenderness were noted. EXTREMITIES: No edema. Reduced pulses. The right foot was in a bandage. LABORATORY AND DIAGNOSTIC STUDIES: Include electrolytes that were normal. BUN 44, creatinine 4.42, calcium 8.5. Sugar 121. IMPRESSION: 1. Having undergone a revascularization of the right lower extremity without untoward problems. 2. 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 3. Hypertension that is well controlled. 4. Not mentioned above, severe anemia with his hematocrit approximately 21 during his last admit. S tool was negative for occult blood. He received 2 units of packed cells and was ultimately discharge d. We will follow with you. Dictated By: DOT ASHLEY MD MR/NTS Conf#: [id number] DID#: [id number] CC: JOSE MTZ MD; WALTER LOWERY MD;*End*
[2019-03-23] MEDS ORDERED: GLUCAGON 1 MG INJ IM PRN (18:30)
[2019-03-23] MEDS ORDERED: GLUCOSE GEL 15 GRAM TUBE PO PRN ×2 (18:30)
[2019-03-23] MEDS ORDERED: GLUCOSE GEL 15 GRAM TUBE BUCCAL PRN (18:30)
[2019-03-23] MEDS ORDERED: DEXTROSE 50% 50 ML SYRINGE IV PRN ×2 (18:30)
[2019-03-23] MEDS: SOD CHLORIDE 0.9% 1,000 ML IV SCH (18:49)
[2019-03-23] MEDS: METOCLOPRAMIDE 10 MG INJ IV PRN (20:03)
[2019-03-23] MEDS: INSULIN ASPART [NOVOLOG] 3 ML PEN SC SCH (21:00)
[2019-03-23] MEDS: ACCU-CHEK XX SCH (21:00)
[2019-03-23] MEDS ORDERED: CILOSTAZOL 100 MG TAB PO SCH (21:00)
[2019-03-23] MEDS: ATORVASTATIN 40 MG TAB PO SCH (21:25)
[2019-03-23] MEDS: GLYCOPYRROLATE 1 MG TAB PO SCH (21:25)
--- NOTE | 2019-03-23 22:38 | HP ---
Date/Time of Note Date/Time of Note DATE: 03/23/19 TIME: 22:25 Assessment/Plan VTE Prophylaxis Risk score (from Nsg)>0 risk: 7 SCD applied (from Nsg): Yes Pharmacological prophylaxis: heparin Lines/Catheters IV Catheter Type (from Nrsg): A Line Urinary Cath still in place: Yes Reason Cath still needed: urinary retention Assessment/Plan Problems: (1) Type 2 diabetes mellitus with diabetic peripheral angiopathy with gangrene Status: Acute Comment: Pt. has been revascularized. Likely will need amputation. Possibly TMTA. Defer to podiatry. Post-op care for revascularization per vasc. surgery. Will follow w/ you. Good glycemic control. Cont. linagliptin and monitor. (2) Gangrene of toe of right foot Status: Acute Comment: Likely amputation pending. Defer to podiatry. (3) Peripheral vascular disease of lower extremity Status: Chronic Comment: Revascularized RLE today (4) Essential (primary) hypertension Status: Chronic Comment: Cont. home antihypertensive regimen. If not better by tomorrow may adjust (5) Hyperlipidemia Status: Chronic Comment: Cont. statin (6) Benign prostatic hyperplasia with urinary obstruction Status: Chronic Comment: Possible that treatment was contributing to siallorrhea. Will monitor for now. (7) Chronic kidney disease, stage IV (severe) Status: Chronic Comment: Nephrology to monitor function. (8) Anemia Status: Chronic Comment: s/p PRBC transfusion last week. Will monitor. Result Diagram: 03/23/19 1805 03/23/19 0705 Results 24hrs Laboratory Tests Test 03/23/19 07:05 03/23/19 07:19 03/23/19 14:29 03/23/19 18:05 Sodium Level 137 Potassium Level 4.6 Chloride Level 109 Carbon Dioxide Level 22 Anion Gap 6 Blood Urea Nitrogen 44 H Creatinine 4.42 H Est Glomerular Filtrat 13 L Rate mL/min Glucose Level 121 Calcium Level 8.5 Bedside Glucose 117 129 White Blood Count 19.7 #H Red Blood Count 3.16 L Hemoglobin 9.3 L Hematocrit 27.5 L Mean Corpuscular Volume 87.0 Mean Corpuscular 29.4 Hemoglobin Mean Corpuscular 33.8 Hemoglobin Concent Red Cell Distribution 13.2 Width Platelet Count 488 #H Mean Platelet Volume 9.5 Immature Granulocytes % 0.800 H Neutrophils % 89.0 H Lymphocytes % 2.9 L Monocytes % 6.7 Eosinophils % 0.3 Basophils % 0.3 Nucleated Red Blood 0.0 Cells % Immature Granulocytes # 0.150 H Neutrophils # 17.6 H Lymphocytes # 0.6 L Monocytes # 1.3 H Eosinophils # 0.1 Basophils # 0.1 Nucleated Red Blood 0.0 Cells # Test 03/23/19 21:32 Bedside Glucose 141 HPI/ROS Admit Date/Time Admit Date/Time Mar 23, 2019 at 06:13 Hx of Present Illness 68 y/o H M w/ h/o T2DM, PVD s/p toe amputations, HTN, CKD stage 4, p/w new gangrenous changes R great and 2nd toes 1 week ago. Local cellulitis effectively treated w/ antibiotics. Now returns for scheduled revascularization of RLE. S/p R fem-posterior tibialis bypass graft, POD#0. C/o pain and nausea but o/w doing well. ROS Constitutional: no complaints Eyes: no complaints ENT: no complaints Respiratory: no complaints Cardiovascular: no complaints Gastrointestinal: nausea, vomiting Genitourinary: no complaints Musculoskeletal: bone/joint pain (RLE) Neurologic: no complaints PMH/Family/Social Past Medical History Medical History: diabetes, high cholesterol, hypertension, renal disease, other (PVD, BPH) Medications Current Medications Albuterol (Proventil 0.083% (Neb)) 2.5 mg ICU RECOVERY PRN HHN .WHEEZING; Start 03/23/19 at 11:30 Nicardipine HCl 50 mg/Sodium Chloride 500 ml @ 50 mls/hr TITRATE IV ; Start 03/23/19 at 11:30 Aspirin (Aspirin) 325 mg DAILY PO ; Start 03/24/19 at 09:00 Amlodipine Besylate (Norvasc) 5 mg DAILY PO ; Start 03/24/19 at 09:00 Atorvastatin Calcium (Lipitor) 40 mg QHS PO Last administered on 03/23/19at 21:25; Admin Dose 40 MG; Start 03/23/19 at 21:00 Carvedilol (Coreg) 12.5 mg BID PO Last administered on 03/23/19at 21:25; Admin Dose 12.5 MG; Start 03/23/19 at 21:00 Ferrous Sulfate (Ferrous Sulfate (Ec)) 325 mg TID PO Last administered on 03/23/19 21:25; Admin Dose 325 MG; Start 03/23/19 at 13:00 Linagliptin (Tradjenta) 5 mg DAILY PO ; Start 03/24/19 at 09:00 Metoclopramide HCl (Reglan) 5 mg AC MEALS PO ; Start 03/23/19 at 17:05 Ranitidine HCl (Zantac) 150 mg DAILY PO ; Start 03/24/19 at 09:00 Heparin Sodium (Porcine) 250 ml @ 5 mls/hr IV INFUSION IV Last administered on 03/23/19at 12:57; Admin Dose 5 MLS/HR; Start 03/23/19 at 12:30; Stop 03/24/19 at 06:00 Sodium Chloride 1,000 ml @ 75 mls/hr [id number] IV Last administered on 03/23/19 18:49; Admin Dose 75 MLS/HR; Start 03/23/19 at 18:00 Ondansetron HCl (Zofran Inj) 4 mg Q4H PRN IV NAUSEA AND/OR VOMITING Last administered on 03/23/19at 20:03; Admin Dose 4 MG; Start 03/23/19 at 18:00 Metoclopramide HCl (Reglan) 10 mg Q6H PRN IV NAUSEA Last administered on 03/23/19 20:03; Admin Dose 10 MG; Start 03/23/19 at 18:00 Diagnostic Test (Pha) (Accu-Chek) 1 ea Q4 XX ; Start 03/23/19 at 21:00 Insulin Aspart (Novolog Insulin Pen) NOVOLOG *MILD* ALGORITHM WITH MEALS BEDTIME SC ; Start 03/23/19 at 21:00 Hydromorphone HCl (Dilaudid) 2 mg Q4H PRN IV SEVERE PAIN LEVEL 7-10; Start 03/23/19 at 18:00 Glycopyrrolate (Robinul) 1 mg BID PO Last administered on 03/23/19 21:25; Admin Dose 1 MG; Start 03/23/19 at 21:00 Miscellaneous Information 1 ea NOTE XX ; Start 03/23/19 at 18:30 Glucose (Glutose) 15 gm Q15M PRN PO DECREASED GLUCOSE; Start 03/23/19 at 18:30 Glucose (Glutose) 22.5 gm Q15M PRN PO DECREASED GLUCOSE; Start 03/23/19 at 18:30 Dextrose (D50w Syringe) 25 ml Q15M PRN IV DECREASED GLUCOSE; Start 03/23/19 at 18:30 Dextrose (D50w Syringe) 50 ml Q15M PRN IV DECREASED GLUCOSE; Start 03/23/19 at 18:30 Glucagon (Glucagen) 1 mg Q15M PRN IM DECREASED GLUCOSE; Start 03/23/19 at 18:30 Glucose (Glutose) 15 gm Q15M PRN BUCCAL DECREASED GLUCOSE; Start 03/23/19 at 18:30 Coded Allergies: No Known Allergy (Unverified , 03/23/19) Past Surgical History Past Surgical Hx: other (toe amp, R forearm ORIF) Family History Significant Family History: cancer (pharyngeal), diabetes, other (PUD in mother) Social History b. 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 ago) Drug Use: none Exam/Review of Systems Vital Signs Vitals VS - Last 72 Hours, by Label Date Temp Pulse Resp B/P (MAP) Pulse Ox O2 O2 Flow FiO2 Time Delivery Rate 03/23/19 98 20:00 03/23/19 99 13 156/51 97 18:30 (86) 03/23/19 96 13 139/72 97 18:00 (94) 03/23/19 95 20 159/50 97 17:45 (86) 03/23/19 95 12 171/56 98 17:30 (94) 03/23/19 93 8 184/63 97 17:15 (103) 03/23/19 94 11 155/71 98 17:00 (99) 03/23/19 93 11 163/48 98 16:45 (86) 03/23/19 92 11 163/48 97 16:30 (86) 03/23/19 95 12 165/48 97 16:15 (87) 03/23/19 97.6 92 13 155/75 93 Nasal 3.0 16:00 (101) Cannula 03/23/19 92 16:00 03/23/19 89 8 168/54 97 15:45 (92) 03/23/19 93 16 173/62 98 15:30 (99) 03/23/19 89 14 164/55 99 15:15 (91) 03/23/19 89 14 138/69 100 15:00 (92) 03/23/19 87 17 156/51 99 14:45 (86) 03/23/19 86 9 169/58 100 14:30 (95) 03/23/19 80 14 161/54 100 14:15 (89) 03/23/19 81 12 134/70 100 14:00 (91) 03/23/19 78 16 158/56 100 13:45 (90) 03/23/19 76 17 182/66 100 13:30 (104) 03/23/19 79 9 160/56 100 13:15 (90) 03/23/19 76 11 155/53 100 13:10 (87) 03/23/19 75 9 155/53 100 13:05 (87) 03/23/19 74 10 116/62 95 Mask 6.0 13:00 (80) 03/23/19 73 13 144/48 95 12:55 (80) 03/23/19 72 15 146/43 94 12:50 (77) 03/23/19 71 9 143/48 93 12:45 (79) 03/23/19 71 11 144/49 94 12:40 (80) 03/23/19 68 11 186/57 97 12:35 (100) 03/23/19 65 12 163/53 100 Mask 6.0 12:30 (89) 03/23/19 65 13 179/66 100 12:25 (103) 03/23/19 66 12 181/66 100 12:20 (104) 03/23/19 63 11 154/74 100 12:10 (100) 03/23/19 64 10 176/66 100 12:05 (102) 03/23/19 97.8 65 12 175/66 100 Mask 6.0 12:00 (102) 03/23/19 65 12:00 03/23/19 Simple 12:00 Mask 03/23/19 97.6 11:59 03/23/19 66 14 185/71 100 11:55 (109) 03/23/19 67 16 178/70 100 11:50 (106) 03/23/19 68 13 185/73 100 11:45 (110) 03/23/19 68 10 182/73 100 11:40 (109) 03/23/19 69 13 182/73 100 11:35 (109) 03/23/19 97.6 69 9 178/72 100 Mask 6.0 11:30 (107) 03/23/19 69 11:22 03/23/19 98.8 101 19 186/85 97 Room Air 07:38 (118) Vital Signs Date Temp Pulse Resp B/P (MAP) Pulse Ox O2 O2 Flow FiO2 Time Delivery Rate 03/23/19 98 20:00 03/23/19 13 156/51 97 18:30 (86) 03/23/19 97.6 Nasal 3.0 16:00 Cannula Exam Constitutional: alert, oriented, well developed Psych: no complaints, nl mood/affect Eyes: nl conjunctiva, EOMI, nl lids, nl sclera, PERRL ENMT: nl external ears & nose, mucosa pink and moist Neck: supple, non-tender; No bruits, No masses, No thyromegaly Respiratory: clear to auscultation, normal air movement Cardiovascular: regular rate and rhythm, nl pulses; No edema, No murmurs/extra sounds, No rub Gastrointestinal: soft, nl liver, spleen, non-tender, bowel sounds; No mass, No rebound or guarding Musculoskeletal: No nl extremities to inspection (RLE dressed) Extremities: No cyanosis, No clubbing, No edema Neurological: CANAL BOAT CAPTAIN II-XII intact, nl mental status, nl speech, nl strength Additional Comments Bedside Glucose - 72 Hours Test 03/23/19 07:19 03/23/19 14:29 03/23/19 21:32 Bedside Glucose 117 mg/dL (70-220) 129 mg/dL (70-220) 141 mg/dL (70-220) JOSE PARRY MD Mar 23, 2019 22:37
[2019-03-24] VITALS (28 sets, daily range): BP systolic 118–156; BP diastolic 48–79; PULSE 76–93; RESP 7–18
[2019-03-24] MEDS: ACCU-CHEK XX SCH ×6 (01:10→20:25)
[2019-03-24] MEDS: ONDANSETRON 4 MG INJ IV PRN ×2 (04:22→13:45)
[2019-03-24] MEDS: HYDROmorphONE 2 MG/ML SYG IV PRN ×3 (04:23→17:14)
[2019-03-24] MEDS: METOCLOPRAMIDE 5 MG TAB PO SCH ×3 (06:05→17:09)
--- NOTE | 2019-03-24 06:42 | PN ---
Date/Time of Note Date/Time of Note DATE: 03/24/19 TIME: 06:39 Assessment/Plan Lines/Catheters IV Catheter Type (from Nrsg): A Line [place] in Place (from Nrsg): Yes Assessment/Plan Assessment/Plan Doing well s/p R fem-PT bypass Stop heparin drip, ASA 325 daily OOBTC, OK to ambulate with PT R TMA vs toe amp per Dr. Afua Pickard I left him a message yesterday OK to tx to tele floor Subjective 24 Hr Interval Summary No new c/o. Mild incisional pain. Exam/Review of Systems Vital Signs Vitals Vital Signs Date Temp Pulse Resp B/P (MAP) Pulse Ox O2 O2 Flow FiO2 Time Delivery Rate 03/24/19 83 15 130/48 100 05:30 (75) 03/24/19 Nasal 3.0 05:00 Cannula 03/24/19 97.8 04:00 Intake and Output 03/23/19 03/23/19 03/24/19 1515:00 23:00 07:00 IntakeIntake Total 1515 ml 885 ml 560 ml OutputOutput Total 470 ml 360 ml 285 ml BalanceBalance 1045 ml 525 ml 275 ml Exam Free Text/Dictation R leg incisions CDI, no bleeding or hematoma R foot warm and hyperemic with (3+) triphasic PT signal, toes with dry gangrene unchanged Results Result Diagram: 03/24/190 03/24/19 0430 WALTER LOWERY MD Mar 24, 2019 06:42
[2019-03-24] MEDS: SOD CHLORIDE 0.9% 1,000 ML IV SCH (07:20)
[2019-03-24] MEDS: INSULIN ASPART [NOVOLOG] 3 ML PEN SC SCH ×4 (07:35→20:23)
--- NOTE | 2019-03-24 08:14 | CONS ---
Assessment/Plan Assessment/Plan Assessment/Plan 1. Post op vascular intervention right lower extrem, stable 2. Anemia sec ckd and surgery, epo and iron started 3. CKD, stable 4. BP controlled Consultation Date/Type/Reason Admit Date/Time Mar 23, 2019 at 06:13 Type of Consult Nephrology Date/Time of Note DATE: 03/24/19 TIME: 08:13 Respiratory: No cough, No shortness of breath Cardiovascular: No chest pain Gastrointestinal: no complaints Genitourinary: other (short in place) Exam/Review of Systems Vital Signs Vitals Vital Signs Date Temp Pulse Resp B/P (MAP) Pulse Ox O2 O2 Flow FiO2 Time Delivery Rate 03/24/19 99 2.5 06:51 03/24/19 83 15 130/48 05:30 (75) 03/24/19 Nasal 05:00 Cannula 03/24/19 97.8 04:00 Intake and Output 03/23/19 03/23/19 03/24/19 1515:00 23:00 07:00 IntakeIntake Total 1515 ml 885 ml 560 ml OutputOutput Total 470 ml 360 ml 285 ml BalanceBalance 1045 ml 525 ml 275 ml Exam Neck: No jvd Respiratory: clear to auscultation Cardiovascular: regular rate and rhythm Gastrointestinal: soft Extremities: No edema Labs Result Diagram: 03/24/19 0430 03/24/19 0430 Results 24hrs Laboratory Tests Test 03/23/19 14:29 03/23/19 18:05 03/23/19 21:32 03/24/19 01:07 Bedside Glucose 129 141 107 White Blood Count 19.7 #H Red Blood Count 3.16 L Hemoglobin 9.3 L Hematocrit 27.5 L Mean Corpuscular Volume 87.0 Mean Corpuscular 29.4 Hemoglobin Mean Corpuscular 33.8 Hemoglobin Concent Red Cell Distribution 13.2 Width Platelet Count 488 #H Mean Platelet Volume 9.5 Immature Granulocytes % 0.800 H Neutrophils % 89.0 H Lymphocytes % 2.9 L Monocytes % 6.7 Eosinophils % 0.3 Basophils % 0.3 Nucleated Red Blood 0.0 Cells % Immature Granulocytes # 0.150 H Neutrophils # 17.6 H Lymphocytes # 0.6 L Monocytes # 1.3 H Eosinophils # 0.1 Basophils # 0.1 Nucleated Red Blood 0.0 Cells # Test 03/24/19 04:30 03/24/19 04:57 White Blood Count 13.6 #H Red Blood Count 2.65 L Hemoglobin 7.9 L Hematocrit 23.6 L Mean Corpuscular Volume 89.1 Mean Corpuscular 29.8 Hemoglobin Mean Corpuscular 33.5 Hemoglobin Concent Red Cell Distribution 13.3 Width Platelet Count 468 H Mean Platelet Volume 10.1 Immature Granulocytes % 1.100 H Neutrophils % 79.6 H Lymphocytes % 9.0 L Monocytes % 9.9 Eosinophils % 0.1 Basophils % 0.3 Nucleated Red Blood 0.0 Cells % Immature Granulocytes # 0.150 H Neutrophils # 10.8 H Lymphocytes # 1.2 Monocytes # 1.4 H Eosinophils # 0.0 Basophils # 0.0 Nucleated Red Blood 0.0 Cells # Sodium Level 138 Potassium Level 4.8 Chloride Level 112 H Carbon Dioxide Level 17 L Anion Gap 9 Blood Urea Nitrogen 42 H Creatinine 4.20 H Est Glomerular Filtrat 14 L Rate mL/min Glucose Level 95 Calcium Level 7.9 L Phosphorus Level 5.4 H Magnesium Level 2.2 Iron Level 24 L Total Iron Binding 145 L Capacity Percent Iron Saturation 17 L Ferritin 218.0 Total Bilirubin 0.2 Direct Bilirubin 0.00 Indirect Bilirubin 0.2 Aspartate Amino 22 Transf (AST/SGOT) Alanine 23 Aminotransferase (ALT/SG PT) Alkaline Phosphatase 72 Total Protein 5.8 L Albumin 2.5 L Globulin 3.30 H Albumin/Globulin Ratio 0.75 Bedside Glucose 107 Medications Medications Current Medications Albuterol (Proventil 0.083% (Neb)) 2.5 mg ICU RECOVERY PRN HHN .WHEEZING; Start 03/23/19 at 11:30 Nicardipine HCl 50 mg/Sodium Chloride 500 ml @ 50 mls/hr TITRATE IV ; Start 03/23/19 at 11:30 Aspirin (Aspirin) 325 mg DAILY PO ; Start 03/24/19 at 09:00 Amlodipine Besylate (Norvasc) 5 mg DAILY PO ; Start 03/24/19 at 09:00 Atorvastatin Calcium (Lipitor) 40 mg QHS PO Last administered on 03/23/19at 21:25; Admin Dose 40 MG; Start 03/23/19 at 21:00 Carvedilol (Coreg) 12.5 mg BID PO Last administered on 03/23/19at 21:25; Admin Dose 12.5 MG; Start 03/23/19 at 21:00 Ferrous Sulfate (Ferrous Sulfate (Ec)) 325 mg TID PO Last administered on 03/23/19 21:25; Admin Dose 325 MG; Start 03/23/19 at 13:00 Linagliptin (Tradjenta) 5 mg DAILY PO ; Start 03/24/19 at 09:00 Metoclopramide HCl (Reglan) 5 mg AC MEALS PO Last administered on 03/24/19 06:05; Admin Dose 5 MG; Start 03/23/19 at 17:05 Ranitidine HCl (Zantac) 150 mg DAILY PO ; Start 03/24/19 at 09:00 Sodium Chloride 1,000 ml @ 75 mls/hr [id number] IV Last administered on 03/23/19 18:49; Admin Dose 75 MLS/HR; Start 03/23/19 at 18:00 Ondansetron HCl (Zofran Inj) 4 mg Q4H PRN IV NAUSEA AND/OR VOMITING Last administered on 03/24/19 04:22; Admin Dose 4 MG; Start 03/23/19 at 18:00 Metoclopramide HCl (Reglan) 10 mg Q6H PRN IV NAUSEA Last administered on 03/23/19 20:03; Admin Dose 10 MG; Start 03/23/19 at 18:00 Diagnostic Test (Pha) (Accu-Chek) 1 ea Q4 XX Last administered on 03/24/19at 05:20; Admin Dose 1 EA; Start 03/23/19 at 21:00 Insulin Aspart (Novolog Insulin Pen) NOVOLOG *MILD* ALGORITHM WITH MEALS BEDTIME SC ; Start 03/23/19 at 21:00 Hydromorphone HCl (Dilaudid) 2 mg Q4H PRN IV SEVERE PAIN LEVEL 7-10 Last administered on 03/24/19 04:23; Admin Dose 2 MG; Start 03/23/19 at 18:00 Glycopyrrolate (Robinul) 1 mg BID PO Last administered on 03/23/19 21:25; Admin Dose 1 MG; Start 03/23/19 at 21:00 Miscellaneous Information 1 ea NOTE XX ; Start 03/23/19 at 18:30 Glucose (Glutose) 15 gm Q15M PRN PO DECREASED GLUCOSE; Start 03/23/19 at 18:30 Glucose (Glutose) 22.5 gm Q15M PRN PO DECREASED GLUCOSE; Start 03/23/19 at 18:30 Dextrose (D50w Syringe) 25 ml Q15M PRN IV DECREASED GLUCOSE; Start 03/23/19 at 18:30 Dextrose (D50w Syringe) 50 ml Q15M PRN IV DECREASED GLUCOSE; Start 03/23/19 at 18:30 Glucagon (Glucagen) 1 mg Q15M PRN IM DECREASED GLUCOSE; Start 03/23/19 at 18:30 Glucose (Glutose) 15 gm Q15M PRN BUCCAL DECREASED GLUCOSE; Start 03/23/19 at 18:30 Epoetin Joseph-epbx (Retacrit (Esrd)) 10,000 unit TuThSa@1700 SC ; Start 03/24/19 at 17:00 DOT ASHLEY MD Mar 24, 2019 08:14
[2019-03-24] MEDS: FERROUS SULFATE (EC) 325 MG TAB PO SCH ×3 (08:27→20:23)
[2019-03-24] MEDS: RANITIDINE 150 MG TAB PO SCH (08:28)
[2019-03-24] MEDS: ASPIRIN 325 MG TAB PO SCH (08:28)
[2019-03-24] MEDS: GLYCOPYRROLATE 1 MG TAB PO SCH ×2 (08:28→20:23)
[2019-03-24] MEDS: LINAGLIPTIN 5 MG TABLET PO SCH (08:28)
--- NOTE | 2019-03-24 08:57 | CONS ---
Assessment/Plan Assessment/Plan Problems: (1) Gangrene of toe of right foot Status: Resolved (2) Peripheral vascular disease of lower extremity Status: Chronic (3) Acquired absence of left great toe Status: Chronic (4) Alcohol abuse, in remission Status: Chronic (5) Personal history of nicotine dependence Status: Chronic (6) Type 2 diabetes mellitus with diabetic peripheral angiopathy with gangrene Status: Resolved Qualifiers: Qualified Codes: E11.52 - Type 2 diabetes mellitus with diabetic peripheral angiopathy with gangrene; Z79.4 - longterm (current) use of insulin Assessment/Plan (Daily) Pending vascular surgery plan for right LE arterial supply. Will plan for amputation of right foot (TMA) after vascular surgery intervention. Thank you again for involving me in the care of this patient. If you have any questions regarding this case, please feel free to contact me at pager: [phone] or reach me at mobile: [phone]. Consultation Date/Type/Reason Admit Date/Time Mar 23, 2019 at 06:13 Date of Consultation: Mar 21, 2019 Type of Consult Foot and ankle surgery Reason for Consultation Right forefoot gangrene Date/Time of Note DATE: 03/24/19 TIME: 08:54 Hx of Present Illness Thank you very much for your kind consultation. As you now this is a 58-year-o ld male patient who is readmitted to the hospital with gangrenous changes involving the right forefoot. Patient is under care of Dr. Cullen Monaco, vascular surgery. I was consulted for evaluation for possible transmetatarsal amputation of the right foot. As per history of present illness. Past Medical History Medical History: diabetes, high cholesterol, hypertension, renal disease, other (PVD, BPH) Home Meds Active Scripts Carvedilol* (Carvedilol*) 25 Mg Tablet, 25 MG PO BID for 30 Days, #60 TAB 5 Refills Prov:JOSE PARRY MD 04/13/19 Multivit/Ca Carb/B Cmplx/Fa* (Gilda-Jennifer*) 1 Tab Tab, 1 TAB PO DAILY for 30 Days, #30 TAB 5 Refills Prov:JOSE PARRY MD 04/13/19 [Insulin Glargine] 100 UNITS/ML SOLN No Conflict Check, 5 UNITS SC DAILY@1999 for 30 Days, #1 SYR 5 Refills Prov:JOSE PARRY MD 04/13/19 Aspirin (Aspirin) 81 Mg Chew, 81 MG PO DAILY for 30 Days, #30 TAB 5 Refills Prov:JOSE PARRY MD 04/13/19 Losartan Potassium* (Cozaar*) 25 Mg Tablet, 25 MG PO BID for 30 Days, #60 TAB 5 Refills Prov:JOSE PARRY MD 04/13/19 [Epoetin Joseph-Epbx (Esrd)] 32883 UNIT/1 ML SOLUTION No Conflict Check, 41810 UNIT SC TuThSa@1700 for 30 Days, #12 SYR 5 Refills Patient will receive this at hemodialysis. No prescription necessary. Prov:JOSE PARRY MD 04/13/19 Linagliptin (TRADJENTA) 5 Mg Tablet, 5 MG PO DAILY for 30 Days, #30 TAB 3 Refills Prov:JOSE PARRY MD 03/18/19 Ferrous Sulfate* (Ferrous Sulfate*) 325 Mg Tabec, 325 MG PO TID for 30 Days, #90 TAB 2 Refills Prov:JOSE PARRY MD 03/18/19 Cilostazol* (Cilostazol*) 100 Mg Tablet, 50 MG PO BID for 30 Days, #30 TAB 5 Refills Prov:JOSE PARRY MD 02/02/19 Reported Medications Ergocalciferol (Vitamin D2) (VITAMIN D2) 50,000 Unit Capsule, 73952 UNIT PO Q SAT, CAP 01/29/19 Atorvastatin* (Atorvastatin*) 40 Mg Tablet, 40 MG PO QHS, #30 TAB 01/29/19 Medications Current Medications Albuterol (Proventil 0.083% (Neb)) 2.5 mg ICU RECOVERY PRN HHN .WHEEZING; Start 03/23/19 at 11:30 Nicardipine HCl 50 mg/Sodium Chloride 500 ml @ 50 mls/hr TITRATE IV ; Start 03/23/19 at 11:30 Aspirin (Aspirin) 325 mg DAILY PO Last administered on 03/24/19at 08:28; Admin Dose 325 MG; Start 03/24/19 at 09:00 Amlodipine Besylate (Norvasc) 5 mg DAILY PO ; Start 03/24/19 at 09:00 Atorvastatin Calcium (Lipitor) 40 mg QHS PO Last administered on 7/8/19at 21:25; Admin Dose 40 MG; Start 03/23/19 at 21:00 Carvedilol (Coreg) 12.5 mg BID PO Last administered on 03/24/19 08:28; Admin Dose 12.5 MG; Start 03/23/19 at 21:00 Ferrous Sulfate (Ferrous Sulfate (Ec)) 325 mg TID PO Last administered on 9at 08:27; Admin Dose 325 MG; Start 03/23/19 at 13:00 Linagliptin (Tradjenta) 5 mg DAILY PO Last administered on 03/24/19 08:28; Admin Dose 5 MG; Start 03/24/19 at 09:00 Metoclopramide HCl (Reglan) 5 mg AC MEALS PO Last administered on 03/24/19 06:05; Admin Dose 5 MG; Start 03/23/19 at 17:05 Ranitidine HCl (Zantac) 150 mg DAILY PO Last administered on 03/24/19 08:28; Admin Dose 150 MG; Start 03/24/19 at 09:00 Sodium Chloride 1,000 ml @ 30 mls/hr Q24H IV Last administered on 03/24/19 07:20; Admin Dose 30 MLS/HR; Start 03/23/19 at 18:00 Ondansetron HCl (Zofran Inj) 4 mg Q4H PRN IV NAUSEA AND/OR VOMITING Last administered on 03/24/19 04:22; Admin Dose 4 MG; Start 03/23/19 at 18:00 Metoclopramide HCl (Reglan) 10 mg Q6H PRN IV NAUSEA Last administered on 03/23/19 20:03; Admin Dose 10 MG; Start 03/23/19 at 18:00 Diagnostic Test (Pha) (Accu-Chek) 1 ea Q4 XX Last administered on 03/24/19 05:20; Admin Dose 1 EA; Start 03/23/19 at 21:00 Insulin Aspart (Novolog Insulin Pen) NOVOLOG *MILD* ALGORITHM WITH MEALS BEDTIME SC ; Start 03/23/19 at 21:00 Hydromorphone HCl (Dilaudid) 2 mg Q4H PRN IV SEVERE PAIN LEVEL 7-10 Last administered on 03/24/19 04:23; Admin Dose 2 MG; Start 03/23/19 at 18:00 Glycopyrrolate (Robinul) 1 mg BID PO Last administered on 03/24/19at 08:28; Admin Dose 1 MG; Start 03/23/19 at 21:00 Miscellaneous Information 1 ea NOTE XX ; Start 03/23/19 at 18:30 Glucose (Glutose) 15 gm Q15M PRN PO DECREASED GLUCOSE; Start 03/23/19 at 18:30 Glucose (Glutose) 22.5 gm Q15M PRN PO DECREASED GLUCOSE; Start 03/23/19 at 18:30 Dextrose (D50w Syringe) 25 ml Q15M PRN IV DECREASED GLUCOSE; Start 03/23/19 at 18:30 Dextrose (D50w Syringe) 50 ml Q15M PRN IV DECREASED GLUCOSE; Start 03/23/19 at 18:30 Glucagon (Glucagen) 1 mg Q15M PRN IM DECREASED GLUCOSE; Start 03/23/19 at 18:30 Glucose (Glutose) 15 gm Q15M PRN BUCCAL DECREASED GLUCOSE; Start 03/23/19 at 18:30 Epoetin Joseph-epbx (Retacrit (Esrd)) 10,000 unit TuThSa@1700 SC ; Start 03/24/19 at 17:00 Ferric Sodium Gluconate Complex 125 mg/Sodium Chloride 110 ml @ 110 mls/hr DAILY@1300 IVPB ; Start 03/24/19 at 13:00; Stop 03/28/19 at 13:59 Allergies: Coded Allergies: No Known Allergy (Unverified , 04/04/19) Past Surgical History Past Surgical Hx: other (toe amp, R forearm ORIF) Social History 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 ago) Drug Use: none Exam/Review of Systems Exam Vitals Vital Signs Date Temp Pulse Resp B/P (MAP) Pulse Ox O2 O2 Flow FiO2 Time Delivery Rate 03/24/19 99 2.5 06:51 03/24/19 83 15 130/48 05:30 (75) 03/24/19 Nasal 05:00 Cannula 03/24/19 97.8 04:00 Intake and Output 03/23/19 03/23/19 03/24/19 1515:00 23:00 07:00 IntakeIntake Total 1515 ml 885 ml 560 ml OutputOutput Total 470 ml 360 ml 285 ml BalanceBalance 1045 ml 525 ml 275 ml Exam Patient is in no acute distress. Gangrene of the right forefoot noted. Increase in temperature gradient of the right lower extremity noted. Tender to palpation. No pus and no sign of infection. No open wound on the left foot. Labs reviewed. Imaging reviewed. Results Result Diagram: 03/24/19 0430 03/24/19 0430 Results 24hrs Laboratory Tests Test 03/23/19 14:29 03/23/19 18:05 03/23/19 21:32 03/24/19 01:07 Bedside Glucose 129 141 107 White Blood Count 19.7 #H Red Blood Count 3.16 L Hemoglobin 9.3 L Hematocrit 27.5 L Mean Corpuscular Volume 87.0 Mean Corpuscular 29.4 Hemoglobin Mean Corpuscular 33.8 Hemoglobin Concent Red Cell Distribution 13.2 Width Platelet Count 488 #H Mean Platelet Volume 9.5 Immature Granulocytes % 0.800 H Neutrophils % 89.0 H Lymphocytes % 2.9 L Monocytes % 6.7 Eosinophils % 0.3 Basophils % 0.3 Nucleated Red Blood 0.0 Cells % Immature Granulocytes # 0.150 H Neutrophils # 17.6 H Lymphocytes # 0.6 L Monocytes # 1.3 H Eosinophils # 0.1 Basophils # 0.1 Nucleated Red Blood 0.0 Cells # Test 03/24/19 04:30 03/24/19 04:57 White Blood Count 13.6 #H Red Blood Count 2.65 L Hemoglobin 7.9 L Hematocrit 23.6 L Mean Corpuscular Volume 89.1 Mean Corpuscular 29.8 Hemoglobin Mean Corpuscular 33.5 Hemoglobin Concent Red Cell Distribution 13.3 Width Platelet Count 468 H Mean Platelet Volume 10.1 Immature Granulocytes % 1.100 H Neutrophils % 79.6 H Lymphocytes % 9.0 L Monocytes % 9.9 Eosinophils % 0.1 Basophils % 0.3 Nucleated Red Blood 0.0 Cells % Immature Granulocytes # 0.150 H Neutrophils # 10.8 H Lymphocytes # 1.2 Monocytes # 1.4 H Eosinophils # 0.0 Basophils # 0.0 Nucleated Red Blood 0.0 Cells # Sodium Level 138 Potassium Level 4.8 Chloride Level 112 H Carbon Dioxide Level 17 L Anion Gap 9 Blood Urea Nitrogen 42 H Creatinine 4.20 H Est Glomerular Filtrat 14 L Rate mL/min Glucose Level 95 Calcium Level 7.9 L Phosphorus Level 5.4 H Magnesium Level 2.2 Iron Level 24 L Total Iron Binding 145 L Capacity Percent Iron Saturation 17 L Ferritin 218.0 Total Bilirubin 0.2 Direct Bilirubin 0.00 Indirect Bilirubin 0.2 Aspartate Amino 22 Transf (AST/SGOT) Alanine 23 Aminotransferase (ALT/SG PT) Alkaline Phosphatase 72 Total Protein 5.8 L Albumin 2.5 L Globulin 3.30 H Albumin/Globulin Ratio 0.75 Bedside Glucose 107 Medications Medication Current Medications Albuterol (Proventil 0.083% (Neb)) 2.5 mg ICU RECOVERY PRN HHN .WHEEZING; Start 03/23/19 at 11:30 Nicardipine HCl 50 mg/Sodium Chloride 500 ml @ 50 mls/hr TITRATE IV ; Start 03/23/19 at 11:30 Aspirin (Aspirin) 325 mg DAILY PO Last administered on 03/24/19 08:28; Admin Dose 325 MG; Start 03/24/19 at 09:00 Amlodipine Besylate (Norvasc) 5 mg DAILY PO ; Start 03/24/19 at 09:00 Atorvastatin Calcium (Lipitor) 40 mg QHS PO Last administered on 03/23/19 21:25; Admin Dose 40 MG; Start 03/23/19 at 21:00 Carvedilol (Coreg) 12.5 mg BID PO Last administered on 03/24/19 08:28; Admin Dose 12.5 MG; Start 03/23/19 at 21:00 Ferrous Sulfate (Ferrous Sulfate (Ec)) 325 mg TID PO Last administered on 03/24/19 08:27; Admin Dose 325 MG; Start 03/23/19 at 13:00 Linagliptin (Tradjenta) 5 mg DAILY PO Last administered on 03/24/19 08:28; Adm in Dose 5 MG; Start 03/24/19 at 09:00 Metoclopramide HCl (Reglan) 5 mg AC MEALS PO Last administered on 03/24/19 06:05; Admin Dose 5 MG; Start 03/23/19 at 17:05 Ranitidine HCl (Zantac) 150 mg DAILY PO Last administered on 03/24/19 08:28; Admin Dose 150 MG; Start 03/24/19 at 09:00 Sodium Chloride 1,000 ml @ 30 mls/hr Q24H IV Last administered on 03/24/19 07:20; Admin Dose 30 MLS/HR; Start 03/23/19 at 18:00 Ondansetron HCl (Zofran Inj) 4 mg Q4H PRN IV NAUSEA AND/OR VOMITING Last administered on 03/24/19 04:22; Admin Dose 4 MG; Start 03/23/19 at 18:00 Metoclopramide HCl (Reglan) 10 mg Q6H PRN IV NAUSEA Last administered on 03/23/19 20:03; Admin Dose 10 MG; Start 03/23/19 at 18:00 Diagnostic Test (Pha) (Accu-Chek) 1 ea Q4 XX Last administered on 03/24/19 05:20; Admin Dose 1 EA; Start 03/23/19 at 21:00 Insulin Aspart (Novolog Insulin Pen) NOVOLOG *MILD* ALGORITHM WITH MEALS BEDTIME SC ; Start 03/23/19 at 21:00 Hydromorphone HCl (Dilaudid) 2 mg Q4H PRN IV SEVERE PAIN LEVEL 7-10 Last admini stered on 03/24/19 04:23; Admin Dose 2 MG; Start 03/23/19 at 18:00 Glycopyrrolate (Robinul) 1 mg BID PO Last administered on 03/24/19 08:28; Admin Dose 1 MG; Start 03/23/19 at 21:00 Miscellaneous Information 1 ea NOTE XX ; Start 03/23/19 at 18:30 Glucose (Glutose) 15 gm Q15M PRN PO DECREASED GLUCOSE; Start 03/23/19 at 18:30 Glucose (Glutose) 22.5 gm Q15M PRN PO DECREASED GLUCOSE; Start 03/23/19 at 18:30 Dextrose (D50w Syringe) 25 ml Q15M PRN IV DECREASED GLUCOSE; Start 03/23/19 at 18:30 Dextrose (D50w Syringe) 50 ml Q15M PRN IV DECREASED GLUCOSE; Start 03/23/19 at 18:30 Glucagon (Glucagen) 1 mg Q15M PRN IM DECREASED GLUCOSE; Start 03/23/19 at 18:30 Glucose (Glutose) 15 gm Q15M PRN BUCCAL DECREASED GLUCOSE; Start 03/23/19 at 18:30 Epoetin Joseph-epbx (Retacrit (Esrd)) 10,000 unit TuThSa@1700 SC ; Start 03/24/19 at 17:00 Ferric Sodium Gluconate Complex 125 mg/Sodium Chloride 110 ml @ 110 mls/hr DAILY@1300 IVPB ; Start 03/24/19 at 13:00; Stop 03/28/19 at 13:59 CJ DODD DPM Mar 24, 2019 08:57
--- NOTE | 2019-03-24 08:58 | PN ---
Date/Time of Note Date/Time of Note DATE: 03/24/19 TIME: 08:57 Assessment/Plan Lines/Catheters IV Catheter Type (from Nrs): A Line River in Place (from Nrs): Yes Assessment/Plan Problems: (1) Gangrene of toe of right foot Status: Resolved Comment: Transmetatarsal amputation of right foot will be planned this week. Discussed with Dr. Monaco and patient in detail. Patient will be followed. (2) Acquired absence of left great toe Status: Chronic (3) Personal history of nicotine dependence Status: Chronic (4) Alcohol abuse, in remission Status: Chronic (5) Peripheral vascular disease of lower extremity Status: Chronic (6) Type 2 diabetes mellitus with diabetic peripheral angiopathy with gangrene Status: Resolved Qualifiers: Diabetes mellitus group home insulin use: with ferry terminal agent use Qualified Codes: E11.52 - Type 2 diabetes mellitus with diabetic peripheral angiopathy with gangrene; Z79.4 - ferry terminal agent (current) use of insulin Subjective 24 Hr Interval Summary Patient was seen at bedside. Patient is in no acute distress. Denies overnight adverse events. Denies fever, chills, nausea or vomiting. Denies recent trauma. S/P right LE arterial bypass. Constitutional: no complaints Pain Control: well controlled Exam/Review of Systems Vital Signs Vitals Exam Free Text/Dictation Patient is in no acute distress laying supine in bed. Right lower extremity temperature gradient is increased and pedal pulses are not palpable. Forefoot gangrene continues and is well demarcated. Tender to palpation. No other changes on examination. CJ DODD DPM Mar 24, 2019 08:58
[2019-03-24] MEDS: AMLODIPINE 5 MG TAB PO SCH (13:45)
--- NOTE | 2019-03-24 13:49 | PN ---
Date/Time of Note Date/Time of Note DATE: 03/24/19 TIME: 13:41 Assessment/Plan VTE Prophylaxis Risk score (from Nsg)>0 risk: 10 SCD applied (from Ns): Yes Pharmacological prophylaxis: heparin Lines/Catheters IV Catheter Type (from Nrsg): A Line Urinary Cath still in place: Yes Reason Cath still needed: urinary retention Assessment/Plan Problems: (1) Type 2 diabetes mellitus with diabetic peripheral angiopathy with gangrene Status: Acute Comment: BG control has been good. Pt. s/p revascularization RLE POD#1 and doing well. Pt. to have TMTA later in the week by podiatry. Will follow. (2) Gangrene of toe of right foot Status: Acute Comment: TMTA later in the week per podiatry (3) Essential (primary) hypertension Status: Chronic Comment: BP fair. Mildly elevated. Will monitor on current med doses. Expect improvement once pain controlled. (4) Hyperlipidemia Status: Chronic Comment: Cont. statin (5) Benign prostatic hyperplasia with urinary obstruction Status: Chronic Comment: Off alfuzosin to see if salivary symptoms improve. (6) Chronic kidney disease, stage IV (severe) Status: Chronic Comment: Stable. Defer to nephrology. (7) Anemia Status: Chronic Comment: Hgb decreased postoperatively. Will make sure pt. is on EPO and Fe. May need blood transfusion. Will monitor. Result Diagram: 03/24/19 0430 03/24/19 0430 Results 24hrs Laboratory Tests Test 03/23/19 14:29 03/23/19 18:05 03/23/19 21:32 03/24/19 01:07 Bedside Glucose 129 141 107 White Blood Count 19.7 #H Red Blood Count 3.16 L Hemoglobin 9.3 L Hematocrit 27.5 L Mean Corpuscular Volume 87.0 Mean Corpuscular 29.4 Hemoglobin Mean Corpuscular 33.8 Hemoglobin Concent Red Cell Distribution 13.2 Width Platelet Count 488 #H Mean Platelet Volume 9.5 Immature Granulocytes % 0.800 H Neutrophils % 89.0 H Lymphocytes % 2.9 L Monocytes % 6.7 Eosinophils % 0.3 Basophils % 0.3 Nucleated Red Blood 0.0 Cells % Immature Granulocytes # 0.150 H Neutrophils # 17.6 H Lymphocytes # 0.6 L Monocytes # 1.3 H Eosinophils # 0.1 Basophils # 0.1 Nucleated Red Blood 0.0 Cells # Test 03/24/19 04:30 03/24/19 04:57 03/24/19 08:29 03/24/19 09:05 White Blood Count 13.6 #H Red Blood Count 2.65 L Hemoglobin 7.9 L Hematocrit 23.6 L Mean Corpuscular Volume 89.1 Mean Corpuscular 29.8 Hemoglobin Mean Corpuscular 33.5 Hemoglobin Concent Red Cell Distribution 13.3 Width Platelet Count 468 H Mean Platelet Volume 10.1 Immature Granulocytes % 1.100 H Neutrophils % 79.6 H Lymphocytes % 9.0 L Monocytes % 9.9 Eosinophils % 0.1 Basophils % 0.3 Nucleated Red Blood 0.0 Cells % Immature Granulocytes # 0.150 H Neutrophils # 10.8 H Lymphocytes # 1.2 Monocytes # 1.4 H Eosinophils # 0.0 Basophils # 0.0 Nucleated Red Blood 0.0 Cells # Sodium Level 138 Potassium Level 4.8 Chloride Level 112 H Carbon Dioxide Level 17 L Anion Gap 9 Blood Urea Nitrogen 42 H Creatinine 4.20 H Est Glomerular Filtrat 14 L Rate mL/min Glucose Level 95 Calcium Level 7.9 L Phosphorus Level 5.4 H Magnesium Level 2.2 Iron Level 24 L Total Iron Binding 145 L Capacity Percent Iron Saturation 17 L Ferritin 218.0 Total Bilirubin 0.2 Direct Bilirubin 0.00 Indirect Bilirubin 0.2 Aspartate Amino 22 Transf (AST/SGOT) Alanine 23 Aminotransferase (ALT/SG PT) Alkaline Phosphatase 72 Total Protein 5.8 L Albumin 2.5 L Globulin 3.30 H Albumin/Globulin Ratio 0.75 Bedside Glucose 107 93 Prothrombin Time 16.0 H Prothrombin Time Ratio 1.3 INR International 1.27 Normalized Ratio Activated 51.5 H Partial Thromboplast Time Test 03/24/19 12:04 Bedside Glucose 90 Subjective 24 Hr Interval Summary Constitutional: no complaints, improved Respiratory: no complaints Cardiovascular: no complaints Gastrointestinal: no complaints Genitourinary: no complaints Musculoskeletal: bone/joint pain ((+) pain RLE) Neurologic: no complaints Exam/Review of Systems Exam Vitals VS - Last 72 Hours, by Label Date Temp Pulse Resp B/P (MAP) Pulse Ox O2 O2 Flow FiO2 Time Delivery Rate 03/24/19 98.0 84 11 151/71 100 Nasal 12:00 (97) Cannula 03/24/19 83 12:00 03/24/19 84 18 141/73 100 Nasal 11:00 (95) Cannula 03/24/19 82 11 137/71 97 Nasal 10:00 (93) Cannula 03/24/19 83 9 151/70 99 Nasal 09:00 (97) Cannula 03/24/19 Nasal 3.0 08:00 Cannula 03/24/19 82 08:00 03/24/19 83 8 143/69 100 Nasal 08:00 (93) Cannula 03/24/19 81 7 128/69 95 Nasal 07:00 (88) Cannula 03/24/19 99 2.5 06:51 03/24/19 83 15 130/48 100 05:30 (75) 03/24/19 84 9 127/69 98 Nasal 3.0 05:00 (88) Cannula 03/24/19 85 9 131/48 94 04:30 (75) 03/24/19 97.8 89 16 142/73 98 Nasal 3.0 04:00 (96) Cannula 03/24/19 88 04:00 03/24/19 85 13 155/54 100 03:30 (87) 03/24/19 85 14 134/70 100 Nasal 3.0 03:00 (91) Cannula 03/24/19 87 13 152/54 100 02:30 (86) 03/24/19 88 13 129/67 95 Nasal 3.0 02:00 (87) Cannula 03/24/19 90 13 152/54 100 01:30 (86) 03/24/19 91 13 132/71 100 Nasal 3.0 01:00 (91) Cannula 03/24/19 92 13 151/53 99 00:30 (85) 03/24/19 98.5 93 14 136/72 99 Nasal 3.0 00:00 (93) Cannula 03/24/19 93 00:00 03/24/19 Nasal 3.0 00:00 Cannula 03/23/19 94 19 149/50 99 23:30 (83) 03/23/19 98 2.5 23:27 03/23/19 95 14 144/77 99 Nasal 23:00 (99) Cannula 03/23/19 96 13 152/49 100 22:30 (83) 03/23/19 97 12 141/73 99 Nasal 22:00 (95) Cannula 03/23/19 99 10 162/53 100 21:30 (89) 03/23/19 98 12 141/69 97 Nasal 21:00 (93) Cannula 03/23/19 97 10 156/49 99 20:30 (84) 03/23/19 Nasal 3.0 20:00 Cannula 03/23/19 98 20:00 03/23/19 99.1 99 14 142/69 96 Nasal 20:00 (93) Cannula 03/23/19 99 13 156/51 97 18:30 (86) 03/23/19 96 13 139/72 97 18:00 (94) 03/23/19 95 20 159/50 97 17:45 (86) 03/23/19 95 12 171/56 98 17:30 (94) 03/23/19 93 8 184/63 97 17:15 (103) 03/23/19 94 11 155/71 98 17:00 (99) 03/23/19 93 11 163/48 98 16:45 (86) 03/23/19 92 11 163/48 97 16:30 (86) 03/23/19 95 12 165/48 97 16:15 (87) 03/23/19 97.6 92 13 155/75 93 Nasal 3.0 16:00 (101) Cannula 03/23/19 92 16:00 03/23/19 89 8 168/54 97 15:45 (92) 03/23/19 93 16 173/62 98 15:30 (99) 03/23/19 89 14 164/55 99 15:15 (91) 03/23/19 89 14 138/69 100 15:00 (92) 03/23/19 87 17 156/51 99 14:45 (86) 03/23/19 86 9 169/58 100 14:30 (95) 03/23/19 80 14 161/54 100 14:15 (89) 03/23/19 81 12 134/70 100 14:00 (91) 03/23/19 78 16 158/56 100 13:45 (90) 03/23/19 76 17 182/66 100 13:30 (104) 03/23/19 79 9 160/56 100 13:15 (90) 03/23/19 76 11 155/53 100 13:10 (87) 03/23/19 75 9 155/53 100 13:05 (87) 03/23/19 74 10 116/62 95 Mask 6.0 13:00 (80) 03/23/19 73 13 144/48 95 12:55 (80) 03/23/19 72 15 146/43 94 12:50 (77) 03/23/19 71 9 143/48 93 12:45 (79) 03/23/19 71 11 144/49 94 12:40 (80) 03/23/19 68 11 186/57 97 12:35 (100) 03/23/19 65 12 163/53 100 Mask 6.0 12:30 (89) 03/23/19 65 13 179/66 100 12:25 (103) 03/23/19 66 12 181/66 100 12:20 (104) 03/23/19 63 11 154/74 100 12:10 (100) 03/23/19 64 10 176/66 100 12:05 (102) 03/23/19 97.8 65 12 175/66 100 Mask 6.0 12:00 (102) 03/23/19 65 12:00 03/23/19 Simple 12:00 Mask 03/23/19 97.6 11:59 03/23/19 66 14 185/71 100 11:55 (109) 03/23/19 67 16 178/70 100 11:50 (106) 03/23/19 68 13 185/73 100 11:45 (110) 03/23/19 68 10 182/73 100 11:40 (109) 03/23/19 69 13 182/73 100 11:35 (109) 03/23/19 97.6 69 9 178/72 100 Mask 6.0 11:30 (107) 03/23/19 69 11:22 03/23/19 98.8 101 19 186/85 97 Room Air 07:38 (118) Vital Signs Date Temp Pulse Resp B/P (MAP) Pulse Ox O2 O2 Flow FiO2 Time Delivery Rate 03/24/19 98.0 84 11 151/71 100 Nasal 12:00 (97) Cannula 03/24/19 3.0 08:00 Intake and Output 03/23/19 03/23/19 03/24/19 1515:00 23:00 07:00 IntakeIntake Total 1515 ml 885 ml 560 ml OutputOutput Total 470 ml 360 ml 285 ml BalanceBalance 1045 ml 525 ml 275 ml Constitutional: alert, oriented, well developed Psych: no complaints, nl mood/affect Respiratory: clear to auscultation, normal air movement Cardiovascular: regular rate and rhythm; No edema, No murmurs/extra sounds, No rub Gastrointestinal: soft, nl liver, spleen, non-tender, bowel sounds; No mass, No rebound or guarding Musculoskeletal: No nl extremities to inspection (RLE wrapped and warm to touch) Extremities: No cyanosis, No clubbing, No edema Neurological: WINE PASTEURIZER II-XII intact, nl mental status, nl speech, nl strength Additional Comments Bedside Glucose - 72 Hours Test 03/23/19 07:19 03/23/19 14:29 03/23/19 21:32 03/24/19 01:07 Bedside 117 129 141 107 Glucose mg/dL (70-220) mg/dL (70-220) mg/dL (70-220) mg/dL (70-220) Test 03/24/19 04:57 03/24/19 09:05 03/24/19 12:04 Bedside 107 93 90 Glucose mg/dL (70-220) mg/dL (70-220) mg/dL (70-220) Results Results 24hrs Laboratory Tests Test 03/23/19 14:29 03/23/19 18:05 03/23/19 21:32 03/24/19 01:07 Bedside Glucose 129 141 107 White Blood Count 19.7 #H Red Blood Count 3.16 L Hemoglobin 9.3 L Hematocrit 27.5 L Mean Corpuscular Volume 87.0 Mean Corpuscular 29.4 Hemoglobin Mean Corpuscular 33.8 Hemoglobin Concent Red Cell Distribution 13.2 Width Platelet Count 488 #H Mean Platelet Volume 9.5 Immature Granulocytes % 0.800 H Neutrophils % 89.0 H Lymphocytes % 2.9 L Monocytes % 6.7 Eosinophils % 0.3 Basophils % 0.3 Nucleated Red Blood 0.0 Cells % Immature Granulocytes # 0.150 H Neutrophils # 17.6 H Lymphocytes # 0.6 L Monocytes # 1.3 H Eosinophils # 0.1 Basophils # 0.1 Nucleated Red Blood 0.0 Cells # Test 03/24/19 04:30 03/24/19 04:57 03/24/19 08:29 03/24/19 09:05 White Blood Count 13.6 #H Red Blood Count 2.65 L Hemoglobin 7.9 L Hematocrit 23.6 L Mean Corpuscular Volume 89.1 Mean Corpuscular 29.8 Hemoglobin Mean Corpuscular 33.5 Hemoglobin Concent Red Cell Distribution 13.3 Width Platelet Count 468 H Mean Platelet Volume 10.1 Immature Granulocytes % 1.100 H Neutrophils % 79.6 H Lymphocytes % 9.0 L Monocytes % 9.9 Eosinophils % 0.1 Basophils % 0.3 Nucleated Red Blood 0.0 Cells % Immature Granulocytes # 0.150 H Neutrophils # 10.8 H Lymphocytes # 1.2 Monocytes # 1.4 H Eosinophils # 0.0 Basophils # 0.0 Nucleated Red Blood 0.0 Cells # Sodium Level 138 Potassium Level 4.8 Chloride Level 112 H Carbon Dioxide Level 17 L Anion Gap 9 Blood Urea Nitrogen 42 H Creatinine 4.20 H Est Glomerular Filtrat 14 L Rate mL/min Glucose Level 95 Calcium Level 7.9 L Phosphorus Level 5.4 H Magnesium Level 2.2 Iron Level 24 L Total Iron Binding 145 L Capacity Percent Iron Saturation 17 L Ferritin 218.0 Total Bilirubin 0.2 Direct Bilirubin 0.00 Indirect Bilirubin 0.2 Aspartate Amino 22 Transf (AST/SGOT) Alanine 23 Aminotransferase (ALT/SG PT) Alkaline Phosphatase 72 Total Protein 5.8 L Albumin 2.5 L Globulin 3.30 H Albumin/Globulin Ratio 0.75 Bedside Glucose 107 93 Prothrombin Time 16.0 H Prothrombin Time Ratio 1.3 INR International 1.27 Normalized Ratio Activated 51.5 H Partial Thromboplast Time Test 03/24/19 12:04 Bedside Glucose 90 Medications Medication Current Medications Albuterol (Proventil 0.083% (Neb)) 2.5 mg ICU RECOVERY PRN HHN .WHEEZING; Start 03/23/19 at 11:30 Nicardipine HCl 50 mg/Sodium Chloride 500 ml @ 50 mls/hr TITRATE IV ; Start 03/23/19 at 11:30 Aspirin (Aspirin) 325 mg DAILY PO Last administered on 03/24/19at 08:28; Admin Dose 325 MG; Start 03/24/19 at 09:00 Amlodipine Besylate (Norvasc) 5 mg DAILY PO ; Start 03/24/19 at 09:00 Atorvastatin Calcium (Lipitor) 40 mg QHS PO Last administered on 03/23/19at 21:25; Admin Dose 40 MG; Start 03/23/19 at 21:00 Carvedilol (Coreg) 12.5 mg BID PO Last administered on 03/24/19 08:28; Admin Dose 12.5 MG; Start 03/23/19 at 21:00 Ferrous Sulfate (Ferrous Sulfate (Ec)) 325 mg TID PO Last administered on 03/24/19 08:27; Admin Dose 325 MG; Start 03/23/19 at 13:00 Linagliptin (Tradjenta) 5 mg DAILY PO Last administered on 03/24/19 08:28; Admin Dose 5 MG; Start 03/24/19 at 09:00 Metoclopramide HCl (Reglan) 5 mg AC MEALS PO Last administered on 03/24/19 06:05; Admin Dose 5 MG; Start 03/23/19 at 17:05 Ranitidine HCl (Zantac) 150 mg DAILY PO Last administered on 03/24/19 08:28; Admin Dose 150 MG; Start 03/24/19 at 09:00 Sodium Chloride 1,000 ml @ 30 mls/hr Q24H IV Last administered on 03/24/19 07:20; Admin Dose 30 MLS/HR; Start 03/23/19 at 18:00 Ondansetron HCl (Zofran Inj) 4 mg Q4H PRN IV NAUSEA AND/OR VOMITING Last administered on 03/24/19 04:22; Admin Dose 4 MG; Start 03/23/19 at 18:00 Metoclopramide HCl (Reglan) 10 mg Q6H PRN IV NAUSEA Last administered on 03/23/19 20:03; Admin Dose 10 MG; Start 03/23/19 at 18:00 Diagnostic Test (Pha) (Accu-Chek) 1 ea Q4 XX Last administered on 03/24/19 12:11; Admin Dose 1 EA; Start 03/23/19 at 21:00 Insulin Aspart (Novolog Insulin Pen) NOVOLOG *MILD* ALGORITHM WITH MEALS BEDTIME SC ; Start 03/23/19 at 21:00 Hydromorphone HCl (Dilaudid) 2 mg Q4H PRN IV SEVERE PAIN LEVEL 7-10 Last administered on 03/24/19 04:23; Admin Dose 2 MG; Start 03/23/19 at 18:00 Glycopyrrolate (Robinul) 1 mg BID PO Last administered on 03/24/19 08:28; Admin Dose 1 MG; Start 03/23/19 at 21:00 Miscellaneous Information 1 ea NOTE XX ; Start 03/23/19 at 18:30 Glucose (Glutose) 15 gm Q15M PRN PO DECREASED GLUCOSE; Start 03/23/19 at 18:30 Glucose (Glutose) 22.5 gm Q15M PRN PO DECREASED GLUCOSE; Start 03/23/19 at 18:30 Dextrose (D50w Syringe) 25 ml Q15M PRN IV DECREASED GLUCOSE; Start 03/23/19 at 18:30 Dextrose (D50w Syringe) 50 ml Q15M PRN IV DECREASED GLUCOSE; Start 03/23/19 at 18:30 Glucagon (Glucagen) 1 mg Q15M PRN IM DECREASED GLUCOSE; Start 03/23/19 at 18:30 Glucose (Glutose) 15 gm Q15M PRN BUCCAL DECREASED GLUCOSE; Start 03/23/19 at 18:30 Epoetin Joseph-epbx (Retacrit (Esrd)) 10,000 unit TuThSa@1700 SC ; Start 03/24/19 at 17:00 Ferric Sodium Gluconate Complex 125 mg/Sodium Chloride 110 ml @ 110 mls/hr ANGEL Y@1300 IVPB ; Start 03/24/19 at 13:00; Stop 03/28/19 at 13:59 JOSE PARRY MD Mar 24, 2019 13:49
[2019-03-24] MEDS: SOD FERRIC GLUC COMPLX 125 MG in SOD CHLORIDE 0.9% 100 ML IVPB SCH (16:52)
[2019-03-24] MEDS ORDERED: EPOETIN ALFA-EPBX (ESRD) 10,000 UNIT/ML VIAL SC SCH (17:00)
[2019-03-24] MEDS: EPOETIN ALFA-EPBX (ESRD) 10,000 UNIT/ML VIAL SC SCH (17:13)
[2019-03-24] MEDS: ATORVASTATIN 40 MG TAB PO SCH (20:23)
[2019-03-25] MEDS: HYDROCODONE/APAP (5/325) TAB PO PRN ×3 (00:01→14:33)
[2019-03-25 00:25] VITALS: BP 147/66; PULSE 98; RESP 17
[2019-03-25] MEDS: ACCU-CHEK XX SCH ×6 (01:30→21:15)
[2019-03-25 04:00] VITALS: BP 102/59; PULSE 83; RESP 17
[2019-03-25] MEDS: METOCLOPRAMIDE 5 MG TAB PO SCH ×3 (07:04→17:09)
[2019-03-25] MEDS: SOD CHLORIDE 0.9% 1,000 ML IV SCH (07:20)
[2019-03-25 07:45] VITALS: BP 124/59; PULSE 87; RESP 16
[2019-03-25] MEDS: INSULIN ASPART [NOVOLOG] 3 ML PEN SC SCH ×4 (07:47→21:00)
--- NOTE | 2019-03-25 08:49 | CONS ---
Assessment/Plan Assessment/Plan Assessment/Plan (Daily) 1. CKD, min rise in Scr, just observe, I thin euvolemic to sl expanded 2. Anemia, reasonable to transfuse if planned surgery, receiving iv iron and epo 3. BP is controlled 4. DC Short ? and mobilize 5. CHO control is acceptable 6. Urine cult obtained, surveillance Consultation Date/Type/Reason Admit Date/Time Mar 23, 2019 at 06:13 Initial Consult Date 03/21/19 Date/Time of Note DATE: 03/25/19 TIME: 08:46 Detailed Summary Respiratory: No shortness of breath Cardiovascular: No chest pain Gastrointestinal: no complaints Genitourinary: other (short in place) Musculoskeletal: other (less pain right lower extrem) Exam/Review of Systems Exam Vitals Vital Signs Date Temp Pulse Resp B/P (MAP) Pulse Ox O2 O2 Flow FiO2 Time Delivery Rate 03/25/19 98.7 87 16 124/59 93 07:45 (80) 03/25/19 4.0 07:23 03/25/19 Nasal 03:51 Cannula Intake and Output 03/24/19 03/24/19 03/25/19 1515:00 23:00 07:00 IntakeIntake Total 290 ml 600 ml 30 ml OutputOutput Total 210 ml 160 ml 300 ml BalanceBalance 80 ml 440 ml -270 ml Neck: No jvd Respiratory: clear to auscultation Cardiovascular: regular rate and rhythm Gastrointestinal: soft Extremities: edema (trace sacral) Results Result Diagram: 03/25/19 0514 03/25/19 0514 Results 24hrs Laboratory Tests Test 03/24/19 09:05 03/24/19 12:04 03/24/19 16:58 03/24/19 20:22 Bedside Glucose 93 90 159 169 Test 03/25/19 01:27 03/25/19 05:14 03/25/19 05:40 03/25/19 07:31 Bedside Glucose 158 134 119 White Blood Count 20.2 #H Red Blood Count 2.52 L Hemoglobin 7.7 L Hematocrit 22.4 L Mean Corpuscular 88.9 Volume Mean Corpuscular 30.6 Hemoglobin Mean Corpuscular 34.4 Hemoglobin Concent Red Cell 13.3 Distribution Width Platelet Count 452 H Mean Platelet Volume 9.7 Immature 0.700 H Granulocytes % Neutrophils % 92.7 H Lymphocytes % 2.7 L Monocytes % 3.7 Eosinophils % 0.0 Basophils % 0.2 Nucleated Red Blood 0.0 Cells % Immature 0.140 H Granulocytes # Neutrophils # 18.7 H Lymphocytes # 0.5 L Monocytes # 0.8 Eosinophils # 0.0 Basophils # 0.0 Nucleated Red Blood 0.0 Cells # Sodium Level 137 Potassium Level 5.1 Chloride Level 110 Carbon Dioxide Level 14 L Anion Gap 13 Blood Urea Nitrogen 46 H Creatinine 4.45 H Est Glomerular 13 L Filtrat Rate mL/min Glucose Level 125 Calcium Level 7.7 L Phosphorus Level 5.4 H Magnesium Level 2.3 Medications Medication Current Medications Albuterol (Proventil 0.083% (Neb)) 2.5 mg ICU RECOVERY PRN HHN .WHEEZING; Start 03/23/19 at 11:30 Aspirin (Aspirin) 325 mg DAILY PO Last administered on 03/24/19 08:28; Admin Dose 325 MG; Start 03/24/19 at 09:00 Amlodipine Besylate (Norvasc) 5 mg DAILY PO Last administered on 03/24/19 13:45; Admin Dose 5 MG; Start 03/24/19 at 09:00 Atorvastatin Calcium (Lipitor) 40 mg QHS PO Last administered on 03/24/19 2 0:23; Admin Dose 40 MG; Start 03/23/19 at 21:00 Carvedilol (Coreg) 12.5 mg BID PO Last administered on 03/24/19 20:23; Admin Dose 12.5 MG; Start 03/23/19 at 21:00 Ferrous Sulfate (Ferrous Sulfate (Ec)) 325 mg TID PO Last administered on 03/24/19 20:23; Admin Dose 325 MG; Start 03/23/19 at 13:00 Linagliptin (Tradjenta) 5 mg DAILY PO Last administered on 03/24/19 08:28; Admin Dose 5 MG; Start 03/24/19 at 09:00 Metoclopramide HCl (Reglan) 5 mg AC MEALS PO Last administered on 03/25/19 07:04; Admin Dose 5 MG; Start 03/23/19 at 17:05 Ranitidine HCl (Zantac) 150 mg DAILY PO Last administered on 03/24/19 08:28; Admin Dose 150 MG; Start 03/24/19 at 09:00 Sodium Chloride 1,000 ml @ 30 mls/hr Q24H IV Last administered on 03/24/19 07:20; Admin Dose 30 MLS/HR; Start 03/23/19 at 18:00 Ondansetron HCl (Zofran Inj) 4 mg Q4H PRN IV NAUSEA AND/OR VOMITING Last administered on 03/24/19 13:45; Admin Dose 4 MG; Start 03/23/19 at 18:00 Metoclopramide HCl (Reglan) 10 mg Q6H PRN IV NAUSEA Last administered on 03/23/19 20:03; Admin Dose 10 MG; Start 03/23/19 at 18:00 Diagnostic Test (Pha) (Accu-Chek) 1 ea Q4 XX Last administered on 03/25/19 08:38; Admin Dose 1 EA; Start 03/23/19 at 21:00 Insulin Aspart (Novolog Insulin Pen) NOVOLOG *MILD* ALGORITHM WITH MEALS BEDTIME SC Last administered on 03/24/19 17:11; Admin Dose 1 UNIT; Start 03/23/19 at 21:00 Hydromorphone HCl (Dilaudid) 2 mg Q4H PRN IV SEVERE PAIN LEVEL 7-10 Last administered on 03/24/19 17:14; Admin Dose 2 MG; Start 03/23/19 at 18:00 Glycopyrrolate (Robinul) 1 mg BID PO Last administered on 03/24/19 20:23; Admin Dose 1 MG; Start 03/23/19 at 21:00 Miscellaneous Information 1 ea NOTE XX ; Start 03/23/19 at 18:30 Glucose (Glutose) 15 gm Q15M PRN PO DECREASED GLUCOSE; Start 03/23/19 at 18:30 Glucose (Glutose) 22.5 gm Q15M PRN PO DECREASED GLUCOSE; Start 03/23/19 at 18:30 Dextrose (D50w Syringe) 25 ml Q15M PRN IV DECREASED GLUCOSE; Start 03/23/19 at 18:30 Dextrose (D50w Syringe) 50 ml Q15M PRN IV DECREASED GLUCOSE; Start 03/23/19 at 18:30 Glucagon (Glucagen) 1 mg Q15M PRN IM DECREASED GLUCOSE; Start 03/23/19 at 18:30 Glucose (Glutose) 15 gm Q15M PRN BUCCAL DECREASED GLUCOSE; Start 03/23/19 at 18:30 Epoetin Joseph-epbx (Retacrit (Esrd)) 10,000 unit TuThSa@1700 SC Last administered on 03/24/19at 17:13; Admin Dose 10,000 UNIT; Start 03/24/19 at 17:00 Ferric Sodium Gluconate Complex 125 mg/Sodium Chloride 110 ml @ 110 mls/hr DAILY@1300 IVPB Last administered on 03/24/19at 16:52; Admin Dose 110 MLS/HR; Start 03/24/19 at 13:00; Stop 03/28/19 at 13:59 Acetaminophen/ Hydrocodone Bitart ([place] (5/325)) 1 tab Q6H PRN PO .MOD PAIN 4- 6 Last administered on 03/25/19at 05:24; Admin Dose 1 TAB; Start 03/24/19 at 22:30 DOT ASHLEY MD Mar 25, 2019 08:49
[2019-03-25] MEDS: ASPIRIN 325 MG TAB PO SCH (08:55)
[2019-03-25] MEDS: GLYCOPYRROLATE 1 MG TAB PO SCH ×2 (08:55→19:58)
[2019-03-25] MEDS: LINAGLIPTIN 5 MG TABLET PO SCH (08:56)
[2019-03-25] MEDS: RANITIDINE 150 MG TAB PO SCH (08:56)
[2019-03-25] MEDS: AMLODIPINE 5 MG TAB PO SCH (08:56)
[2019-03-25 11:26] VITALS: BP 119/58; PULSE 77; RESP 16
--- NOTE | 2019-03-25 12:12 | PN ---
Date/Time of Note Date/Time of Note DATE: 03/25/19 TIME: 12:11 Assessment/Plan Lines/Catheters IV Catheter Type (from Nrsg): Peripheral IV River in Place (from Nrsg): Yes Assessment/Plan Assessment/Plan Doing well s/p R fem-PT bypass For R TMA per Dr. Caal this week - cleared from my standpoint Subjective 24 Hr Interval Summary No pain. Eating well. River out and voiding OK. Exam/Review of Systems Vital Signs Vitals Vital Signs Date Temp Pulse Resp B/P (MAP) Pulse Ox O2 O2 Flow FiO2 Time Delivery Rate 03/25/19 98.0 77 16 119/58 95 11:26 (78) 03/25/19 Nasal 2.0 07:45 Cannula Intake and Output 03/24/19 03/24/19 03/25/19 1515:00 23:00 07:00 IntakeIntake Total 290 ml 600 ml 30 ml OutputOutput Total 210 ml 160 ml 300 ml BalanceBalance 80 ml 440 ml -270 ml Exam Free Text/Dictation R leg incisions CDI R foot warm and hyperemic, gangrenous changes stable Results Result Diagram: 03/25/19 0514 03/25/19 0514 WALTER LOWERY MD Mar 25, 2019 12:12
[2019-03-25] MEDS: SOD FERRIC GLUC COMPLX 125 MG in SOD CHLORIDE 0.9% 100 ML IVPB SCH (12:25)
[2019-03-25] MEDS ORDERED: VANCOMYCIN IV PER PHARMACY XX SCH (14:30)
[2019-03-25] MEDS: PIPER-TAZO 2.25 GM (PMX) 50 ML IVPB SCH ×2 (14:33→21:14)
[2019-03-25 15:32] VITALS: BP 93/54; PULSE 73; RESP 16
[2019-03-25] MEDS ORDERED: VANCOMYCIN HCL 1.5 GM in SOD CHLORIDE 0.9% 250 ML IVPB SCH (17:00)
--- NOTE | 2019-03-25 17:39 | PN ---
Date/Time of Note Date/Time of Note DATE: 03/25/19 TIME: 17:33 Assessment/Plan VTE Prophylaxis Risk score (from Nsg)>0 risk: 8 SCD applied (from Nsg): Yes Pharmacological prophylaxis: heparin Lines/Catheters IV Catheter Type (from Nrsg): Peripheral IV Urinary Cath still in place: Yes Reason Cath still needed: urinary retention Assessment/Plan Problems: (1) Leukocytosis Status: Acute Comment: WBC was decreasing but now increased back up to 20K. Possible circulating pathogen post-revascularization. Will restart vanco/zosyn now to contain any infection. Should be safe to stop following TMTA. Will monitor WBC (2) Type 2 diabetes mellitus with diabetic peripheral angiopathy with gangrene Status: Acute Comment: S/p revascularization, POD#2. Awaiting TMTA. Cont. pain control. Glucose levels in excellent control. Cont. linagliptin. (3) Gangrene of toe of right foot Status: Acute Comment: Awaiting TMTA (4) Peripheral vascular disease of lower extremity Status: Chronic Comment: Improved blood flow following revascularization. (5) Essential (primary) hypertension Status: Chronic Comment: Good BP control. Cont. current regimen. (6) Hyperlipidemia Status: Chronic Comment: Cont. statin (7) Chronic kidney disease, stage IV (severe) Status: Chronic Comment: Stable. Nephrology monitoring. (8) Anemia Status: Chronic Comment: Hgb stable. Cont. EPO and Fe. (9) Benign prostatic hyperplasia with urinary obstruction Status: Chronic Comment: Currently w/ short. Off alfuzosin. Will monitor symptoms once short comes out. (10) Disturbance of salivary secretion Status: Resolved Comment: As theorized by Dr. Lorenz, this has improved w/ discontinuation of alfuzosin. Will monitor for recurrence. Result Diagram: 03/25/19 0514 03/25/19 0514 Results 24hrs Laboratory Tests Test 03/24/19 20:22 03/25/19 01:27 03/25/19 05:14 03/25/19 05:40 Bedside Glucose 169 158 134 White Blood Count 20.2 #H Red Blood Count 2.52 L Hemoglobin 7.7 L Hematocrit 22.4 L Mean Corpuscular 88.9 Volume Mean Corpuscular 30.6 Hemoglobin Mean Corpuscular 34.4 Hemoglobin Concent Red Cell 13.3 Distribution Width Platelet Count 452 H Mean Platelet Volume 9.7 Immature 0.700 H Granulocytes % Neutrophils % 92.7 H Lymphocytes % 2.7 L Monocytes % 3.7 Eosinophils % 0.0 Basophils % 0.2 Nucleated Red Blood 0.0 Cells % Immature 0.140 H Granulocytes # Neutrophils # 18.7 H Lymphocytes # 0.5 L Monocytes # 0.8 Eosinophils # 0.0 Basophils # 0.0 Nucleated Red Blood 0.0 Cells # Sodium Level 137 Potassium Level 5.1 Chloride Level 110 Carbon Dioxide Level 14 L Anion Gap 13 Blood Urea Nitrogen 46 H Creatinine 4.45 H Est Glomerular 13 L Filtrat Rate mL/min Glucose Level 125 Calcium Level 7.7 L Phosphorus Level 5.4 H Magnesium Level 2.3 Test 03/25/19 07:31 03/25/19 09:00 03/25/19 09:31 03/25/19 12:04 Bedside Glucose 119 139 Urine Color YELLOW Urine Clarity CLOUDY A Urine pH 5.0 Urine Specific 1.016 [place] Urine Ketones TRACE A Urine Nitrite NEGATIVE Urine Bilirubin NEGATIVE Urine Urobilinogen NEGATIVE Urine Leukocyte NEGATIVE Esterase Urine Microscopic 12 H RBC Urine Microscopic 4 WBC Urine Bacteria FEW A Urine Hemoglobin 2+ H Urine Random Sodium < 13 L Urine Glucose 1+ H Urine Total Protein 3+ H Activated 68.3 H Partial Thromboplast Time Mix PTT Normal 50.2 Plasma Immediate Test 03/25/19 17:09 Bedside Glucose 117 Subjective 24 Hr Interval Summary Constitutional: no complaints, improved ENT: No discharge (siallorrhea resolved) Respiratory: no complaints Cardiovascular: no complaints Gastrointestinal: no complaints Genitourinary: no complaints Musculoskeletal: bone/joint pain (RLE) Neurologic: no complaints Exam/Review of Systems Exam Vitals VS - Last 72 Hours, by Label Date Temp Pulse Resp B/P (MAP) Pulse Ox O2 O2 Flow FiO2 Time Delivery Rate 03/25/19 97.7 73 16 93/54 (67) 92 15:32 03/25/19 98.0 77 16 119/58 95 11:26 (78) 03/25/19 98.7 87 16 124/59 93 07:45 (80) 03/25/19 Nasal 2.0 07:45 Cannula 03/25/19 4.0 07:23 03/25/19 97.9 83 17 102/59 99 04:00 (73) 03/25/19 Nasal 3.0 03:51 Cannula 03/25/19 98.2 98 17 147/66 95 00:25 (93) 03/24/19 4.0 23:22 03/24/19 90 10 133/79 91 Nasal 3.0 22:00 (97) Cannula 03/24/19 84 8 127/69 99 Nasal 3.0 21:00 (88) Cannula 03/24/19 Nasal 3.0 20:00 Cannula 03/24/19 76 20:00 03/24/19 98.1 77 11 123/66 97 Nasal 3.0 20:00 (85) Cannula 03/24/19 79 14 129/66 94 Nasal 3.0 19:00 (87) Cannula 03/24/19 80 18 131/57 97 Nasal 18:00 (81) Cannula 03/24/19 97.9 79 8 128/67 99 Nasal 17:00 (87) Cannula 03/24/19 3.0 16:13 03/24/19 78 8 129/68 100 Nasal 16:00 (88) Cannula 03/24/19 78 16:00 03/24/19 78 8 118/68 99 Nasal 15:00 (85) Cannula 03/24/19 82 12 127/65 99 Nasal 14:00 (85) Cannula 03/24/19 89 15 156/54 99 Nasal 13:00 (88) Cannula 03/24/19 98.0 84 11 151/71 100 Nasal 12:00 (97) Cannula 03/24/19 83 12:00 03/24/19 84 18 141/73 100 Nasal 11:00 (95) Cannula 03/24/19 82 11 137/71 97 Nasal 10:00 (93) Cannula 03/24/19 83 9 151/70 99 Nasal 09:00 (97) Cannula 03/24/19 Nasal 3.0 08:00 Cannula 03/24/19 82 08:00 03/24/19 83 8 143/69 100 Nasal 08:00 (93) Cannula 03/24/19 81 7 128/69 95 Nasal 07:00 (88) Cannula 03/24/19 99 2.5 06:51 03/24/19 83 15 130/48 100 05:30 (75) 03/24/19 84 9 127/69 98 Nasal 3.0 05:00 (88) Cannula 03/24/19 85 9 131/48 94 04:30 (75) 03/24/19 97.8 89 16 142/73 98 Nasal 3.0 04:00 (96) Cannula 03/24/19 88 04:00 03/24/19 85 13 155/54 100 03:30 (87) 03/24/19 85 14 134/70 100 Nasal 3.0 03:00 (91) Cannula 03/24/19 87 13 152/54 100 02:30 (86) 03/24/19 88 13 129/67 95 Nasal 3.0 02:00 (87) Cannula 03/24/19 90 13 152/54 100 01:30 (86) 03/24/19 91 13 132/71 100 Nasal 3.0 01:00 (91) Cannula 03/24/19 92 13 151/53 99 00:30 (85) 03/24/19 98.5 93 14 136/72 99 Nasal 3.0 00:00 (93) Cannula 03/24/19 93 00:00 03/24/19 Nasal 3.0 00:00 Cannula 03/23/19 94 19 149/50 99 23:30 (83) 03/23/19 98 2.5 23:27 03/23/19 95 14 144/77 99 Nasal 23:00 (99) Cannula 03/23/19 96 13 152/49 100 22:30 (83) 03/23/19 97 12 141/73 99 Nasal 22:00 (95) Cannula 03/23/19 99 10 162/53 100 21:30 (89) 03/23/19 98 12 141/69 97 Nasal 21:00 (93) Cannula 03/23/19 97 10 156/49 99 20:30 (84) 03/23/19 Nasal 3.0 20:00 Cannula 03/23/19 98 20:00 03/23/19 99.1 99 14 142/69 96 Nasal 20:00 (93) Cannula 03/23/19 99 13 156/51 97 18:30 (86) 03/23/19 96 13 139/72 97 18:00 (94) 03/23/19 95 20 159/50 97 17:45 (86) 03/23/19 95 12 171/56 98 17:30 (94) 03/23/19 93 8 184/63 97 17:15 (103) 03/23/19 94 11 155/71 98 17:00 (99) 03/23/19 93 11 163/48 98 16:45 (86) 03/23/19 92 11 163/48 97 16:30 (86) 03/23/19 95 12 165/48 97 16:15 (87) 03/23/19 97.6 92 13 155/75 93 Nasal 3.0 16:00 (101) Cannula 03/23/19 92 16:00 03/23/19 89 8 168/54 97 15:45 (92) 03/23/19 93 16 173/62 98 15:30 (99) 03/23/19 89 14 164/55 99 15:15 (91) 03/23/19 89 14 138/69 100 15:00 (92) 03/23/19 87 17 156/51 99 14:45 (86) 03/23/19 86 9 169/58 100 14:30 (95) 03/23/19 80 14 161/54 100 14:15 (89) 03/23/19 81 12 134/70 100 14:00 (91) 03/23/19 78 16 158/56 100 13:45 (90) 03/23/19 76 17 182/66 100 13:30 (104) 03/23/19 79 9 160/56 100 13:15 (90) 03/23/19 76 11 155/53 100 13:10 (87) 03/23/19 75 9 155/53 100 13:05 (87) 03/23/19 74 10 116/62 95 Mask 6.0 13:00 (80) 03/23/19 73 13 144/48 95 12:55 (80) 03/23/19 72 15 146/43 94 12:50 (77) 03/23/19 71 9 143/48 93 12:45 (79) 03/23/19 71 11 144/49 94 12:40 (80) 03/23/19 68 11 186/57 97 12:35 (100) 03/23/19 65 12 163/53 100 Mask 6.0 12:30 (89) 03/23/19 65 13 179/66 100 12:25 (103) 03/23/19 66 12 181/66 100 12:20 (104) 03/23/19 63 11 154/74 100 12:10 (100) 03/23/19 64 10 176/66 100 12:05 (102) 03/23/19 97.8 65 12 175/66 100 Mask 6.0 12:00 (102) 03/23/19 65 12:00 03/23/19 Simple 12:00 Mask 03/23/19 97.6 11:59 03/23/19 66 14 185/71 100 11:55 (109) 03/23/19 67 16 178/70 100 11:50 (106) 03/23/19 68 13 185/73 100 11:45 (110) 03/23/19 68 10 182/73 100 11:40 (109) 03/23/19 69 13 182/73 100 11:35 (109) 03/23/19 97.6 69 9 178/72 100 Mask 6.0 11:30 (107) 03/23/19 69 11:22 03/23/19 98.8 101 19 186/85 97 Room Air 07:38 (118) Vital Signs Date Temp Pulse Resp B/P (MAP) Pulse Ox O2 O2 Flow FiO2 Time Delivery Rate 03/25/19 97.7 73 16 93/54 (67) 92 15:32 03/25/19 Nasal 2.0 07:45 Cannula Intake and Output 03/24/19 03/24/19 03/25/19 1515:00 23:00 07:00 IntakeIntake Total 290 ml 600 ml 30 ml OutputOutput Total 210 ml 160 ml 300 ml BalanceBalance 80 ml 440 ml -270 ml Constitutional: alert, oriented, well developed Psych: no complaints, nl mood/affect Respiratory: clear to auscultation, normal air movement Cardiovascular: regular rate and rhythm, nl pulses; No edema, No murmurs/extra sounds, No rub Gastrointestinal: soft, nl liver, spleen, non-tender, bowel sounds; No mass, No rebound or guarding Musculoskeletal: No nl extremities to inspection (RLE wrapped) Extremities: No cyanosis, No clubbing, No edema Neurological: [employer] II-XII intact, nl mental status, nl speech, nl strength Additional Comments Bedside Glucose - 72 Hours Test 03/23/19 07:19 03/23/19 14:29 03/23/19 21:32 03/24/19 01:07 Bedside 117 129 141 107 Glucose mg/dL (70-220) mg/dL (70-220) mg/dL (70-220) mg/dL (70-220) Test 03/24/19 04:57 03/24/19 09:05 03/24/19 12:04 03/24/19 16:58 Bedside 107 93 90 159 Glucose mg/dL (70-220) mg/dL (70-220) mg/dL (70-220) mg/dL (70-220) Test 03/24/19 20:22 03/25/19 01:27 03/25/19 05:40 03/25/19 07:31 Bedside 169 158 134 119 Glucose mg/dL (70-220) mg/dL (70-220) mg/dL (70-220) mg/dL (70-220) Test 03/25/19 12:04 03/25/19 17:09 Bedside 139 117 Glucose mg/dL (70-220) mg/dL (70-220) Results Results 24hrs Laboratory Tests Test 03/24/19 20:22 03/25/19 01:27 03/25/19 05:14 03/25/19 05:40 Bedside Glucose 169 158 134 White Blood Count 20.2 #H Red Blood Count 2.52 L Hemoglobin 7.7 L Hematocrit 22.4 L Mean Corpuscular 88.9 Volume Mean Corpuscular 30.6 Hemoglobin Mean Corpuscular 34.4 Hemoglobin Concent Red Cell 13.3 Distribution Width Platelet Count 452 H Mean Platelet Volume 9.7 Immature 0.700 H Granulocytes % Neutrophils % 92.7 H Lymphocytes % 2.7 L Monocytes % 3.7 Eosinophils % 0.0 Basophils % 0.2 Nucleated Red Blood 0.0 Cells % Immature 0.140 H Granulocytes # Neutrophils # 18.7 H Lymphocytes # 0.5 L Monocytes # 0.8 Eosinophils # 0.0 Basophils # 0.0 Nucleated Red Blood 0.0 Cells # Sodium Level 137 Potassium Level 5.1 Chloride Level 110 Carbon Dioxide Level 14 L Anion Gap 13 Blood Urea Nitrogen 46 H Creatinine 4.45 H Est Glomerular 13 L Filtrat Rate mL/min Glucose Level 125 Calcium Level 7.7 L Phosphorus Level 5.4 H Magnesium Level 2.3 Test 03/25/19 07:31 03/25/19 09:00 03/25/19 09:31 03/25/19 12:04 Bedside Glucose 119 139 Urine Color YELLOW Urine Clarity CLOUDY A Urine pH 5.0 Urine Specific 1.016 [place] Urine Ketones TRACE A Urine Nitrite NEGATIVE Urine Bilirubin NEGATIVE Urine Urobilinogen NEGATIVE Urine Leukocyte NEGATIVE Esterase Urine Microscopic 12 H RBC Urine Microscopic 4 WBC Urine Bacteria FEW A Urine Hemoglobin 2+ H Urine Random Sodium < 13 L Urine Glucose 1+ H Urine Total Protein 3+ H Activated 68.3 H Partial Thromboplast Time Mix PTT Normal 50.2 Plasma Immediate Test 03/25/19 17:09 Bedside Glucose 117 Medications Medication Current Medications Albuterol (Proventil 0.083% (Neb)) 2.5 mg ICU RECOVERY PRN HHN .WHEEZING; Start 03/23/19 at 11:30 Aspirin (Aspirin) 325 mg DAILY PO Last administered on 03/25/19 08:55; Admin Dose 325 MG; Start 03/24/19 at 09:00 Amlodipine Besylate (Norvasc) 5 mg DAILY PO Last administered on 03/25/19 08:56; Admin Dose 5 MG; Start 03/24/19 at 09:00 Atorvastatin Calcium (Lipitor) 40 mg QHS PO Last administered on 03/24/19 20:23; Admin Dose 40 MG; Start 03/23/19 at 21:00 Carvedilol (Coreg) 12.5 mg BID PO Last administered on 03/25/19 08:56; Admin Dose 12.5 MG; Start 03/23/19 at 21:00 Linagliptin (Tradjenta) 5 mg DAILY PO Last administered on 03/25/19 08:56; Ad min Dose 5 MG; Start 03/24/19 at 09:00 Metoclopramide HCl (Reglan) 5 mg AC MEALS PO Last administered on 03/25/19 17:09; Admin Dose 5 MG; Start 03/23/19 at 17:05 Ranitidine HCl (Zantac) 150 mg DAILY PO Last administered on 03/25/19 08:56; Admin Dose 150 MG; Start 03/24/19 at 09:00 Sodium Chloride 1,000 ml @ 30 mls/hr Q24H IV Last administered on 03/24/19 07:20; Admin Dose 30 MLS/HR; Start 03/23/19 at 18:00 Ondansetron HCl (Zofran Inj) 4 mg Q4H PRN IV NAUSEA AND/OR VOMITING Last administered on 03/24/19 13:45; Admin Dose 4 MG; Start 03/23/19 at 18:00 Metoclopramide HCl (Reglan) 10 mg Q6H PRN IV NAUSEA Last administered on 03/23/19at 20:03; Admin Dose 10 MG; Start 03/23/19 at 18:00 Diagnostic Test (Pha) (Accu-Chek) 1 ea Q4 XX Last administered on 03/25/19at 17:08; Admin Dose 1 EA; Start 03/23/19 at 21:00 Insulin Aspart (Novolog Insulin Pen) NOVOLOG *MILD* ALGORITHM WITH MEALS BEDTIME SC Last administered on 03/24/19at 17:11; Admin Dose 1 UNIT; Start 03/23/19 at 21:00 Hydromorphone HCl (Dilaudid) 2 mg Q4H PRN IV SEVERE PAIN LEVEL 7-10 Last administered on 03/24/19at 17:14; Admin Dose 2 MG; Start 03/23/19 at 18:00 Glycopyrrolate (Robinul) 1 mg BID PO Last administered on 03/25/19at 08:55; Admin Dose 1 MG; Start 03/23/19 at 21:00 Miscellaneous Information 1 ea NOTE XX ; Start 03/23/19 at 18:30 Glucose (Glutose) 15 gm Q15M PRN PO DECREASED GLUCOSE; Start 03/23/19 at 18:30 Glucose (Glutose) 22.5 gm Q15M PRN PO DECREASED GLUCOSE; Start 03/23/19 at 18:30 Dextrose (D50w Syringe) 25 ml Q15M PRN IV DECREASED GLUCOSE; Start 03/23/19 at 18:30 Dextrose (D50w Syringe) 50 ml Q15M PRN IV DECREASED GLUCOSE; Start 03/23/19 at 18:30 Glucagon (Glucagen) 1 mg Q15M PRN IM DECREASED GLUCOSE; Start 03/23/19 at 18:30 Glucose (Glutose) 15 gm Q15M PRN BUCCAL DECREASED GLUCOSE; Start 03/23/19 at 18:30 Epoetin Joseph-epbx (Retacrit (Esrd)) 10,000 unit TuThSa@1700 SC Last administered on 03/24/19at 17:13; Admin Dose 10,000 UNIT; Start 03/24/19 at 17:00 Ferric Sodium Gluconate Complex 125 mg/Sodium Chloride 110 ml @ 110 mls/hr DAILY@1300 IVPB Last administered on 03/25/19at 12:25; Admin Dose 110 MLS/HR; Start 03/24/19 at 13:00; Stop 03/28/19 at 13:59 Acetaminophen/ Hydrocodone Bitart ([place] (5/325)) 1 tab Q6H PRN PO .MOD PAIN 4- 6 Last administered on 03/25/19at 14:33; Admin Dose 1 TAB; Start 03/24/19 at 22:30 Vancomycin HCl (Vanco Iv Per Pharmacy) VANCOMYCIN PER PHARMACY PER PROTOCOL XX ; Start 03/25/19 at 14:30 Piperacillin Sod/ Tazobactam Sod 50 ml @ 100 mls/hr Q8 IVPB Last administered on 03/25/19at 14:33; Admin Dose 100 MLS/HR; Start 03/25/19 at 15:00 Vancomycin HCl 1.5 gm/Sodium Chloride 250 ml @ 83.333 mls/ hr ONCE IVPB ; Start 03/25/19 at 17:00; Stop 03/25/19 at 19:59 JOSE PARRY MD Mar 25, 2019 17:39
[2019-03-25] MEDS: ATORVASTATIN 40 MG TAB PO SCH (19:59)
[2019-03-25 20:00] VITALS: BP 103/59; PULSE 69; RESP 17
[2019-03-26] VITALS: BP 114/60; PULSE 60; RESP 17
[2019-03-26] MEDS: ACCU-CHEK XX SCH ×6 (01:06→20:31)
[2019-03-26] MEDS: ONDANSETRON 4 MG INJ IV PRN ×3 (02:11→20:35)
[2019-03-26 04:00] VITALS: BP 122/62; PULSE 72; RESP 17
[2019-03-26] MEDS: HYDROmorphONE 2 MG/ML SYG IV PRN ×2 (04:47→21:43)
[2019-03-26] MEDS: SOD CHLORIDE 0.9% 1,000 ML IV SCH ×3 (06:41→22:32)
[2019-03-26] MEDS: METOCLOPRAMIDE 5 MG TAB PO SCH ×3 (06:41→17:07)
[2019-03-26] MEDS: PIPER-TAZO 2.25 GM (PMX) 50 ML IVPB SCH ×3 (06:41→21:47)
[2019-03-26 07:40] VITALS: BP 117/59; PULSE 77; RESP 19
[2019-03-26] MEDS: INSULIN ASPART [NOVOLOG] 3 ML PEN SC SCH ×4 (07:48→20:31)
--- NOTE | 2019-03-26 08:16 | CONS ---
Assessment/Plan Assessment/Plan Assessment/Plan (Daily) 1. CKD with now ARF without sustained hypotension and no nephrotoxin identified, Vanco resumed (too soon for injury) with pt unable to void and residual noted by scanner of approx 100+ cc, short replaced despite low volume. Will order pelvic us to be certain short placed correctly. Doubt vol contraction with v or diarrhea, will gently vol expand, if trend continues will need to start HD. 2. Edema (sacral) sec to low albumin as not clinically in chf, await cxr and BNP. 3. Favor transfusion per Endo. 4. K+ is sl inc, will repeat later today Consultation Date/Type/Reason Admit Date/Time Mar 23, 2019 at 06:13 Initial Consult Date 03/21/19 Date/Time of Note DATE: 03/26/19 TIME: 08:12 Detailed Summary Respiratory: No shortness of breath Cardiovascular: No chest pain Gastrointestinal: no complaints Genitourinary: other (short is in place) Musculoskeletal: no complaints Exam/Review of Systems Exam Vitals Vital Signs Date Temp Pulse Resp B/P (MAP) Pulse Ox O2 O2 Flow FiO2 Time Delivery Rate 03/26/19 97.5 77 19 117/59 94 Nasal 07:40 (78) Cannula 03/26/19 2.0 02:32 Intake and Output 03/25/19 03/25/19 03/26/19 1515:00 23:00 07:00 IntakeIntake Total 110 ml 2050 ml 60 ml OutputOutput Total 75 ml 150 ml BalanceBalance 35 ml 2050 ml -90 ml Neck: No jvd Respiratory: clear to auscultation Cardiovascular: regular rate and rhythm; No S3 Gastrointestinal: soft Extremities: No edema (sacral edema 2+) Results Result Diagram: 03/26/19 0525 03/26/19 0525 Results 24hrs Laboratory Tests Test 03/25/19 09:00 03/25/19 09:31 03/25/19 12:04 03/25/19 17:09 Urine Color YELLOW Urine Clarity CLOUDY A Urine pH 5.0 Urine Specific 1.016 [place] Urine Ketones TRACE A Urine Nitrite NEGATIVE Urine Bilirubin NEGATIVE Urine Urobilinogen NEGATIVE Urine Leukocyte NEGATIVE Esterase Urine Microscopic 12 H RBC Urine Microscopic 4 WBC Urine Bacteria FEW A Urine Hemoglobin 2+ H Urine Random Sodium < 13 L Urine Glucose 1+ H Urine Total Protein 3+ H Activated 68.3 H Partial Thromboplast Time Mix PTT Normal 50.2 Plasma Immediate Bedside Glucose 139 117 Test 03/25/19 21:15 03/26/19 01:04 03/26/19 05:25 03/26/19 06:29 Bedside Glucose 135 120 114 White Blood Count 11.2 #H Red Blood Count 2.37 L Hemoglobin 7.0 L Hematocrit 21.2 L Mean Corpuscular 89.5 Volume Mean Corpuscular 29.5 Hemoglobin Mean Corpuscular 33.0 Hemoglobin Concent Red Cell 13.6 Distribution Width Platelet Count 409 Mean Platelet Volume 9.8 Immature 1.200 H Granulocytes % Neutrophils % 78.1 H Lymphocytes % 10.2 L Monocytes % 7.2 Eosinophils % 2.9 Basophils % 0.4 Nucleated Red Blood 0.3 H Cells % Immature 0.140 H Granulocytes # Neutrophils # 8.8 H Lymphocytes # 1.2 Monocytes # 0.8 Eosinophils # 0.3 Basophils # 0.0 Nucleated Red Blood 0.0 Cells # Sodium Level 135 Potassium Level 5.2 H Chloride Level 107 Carbon Dioxide Level 18 L Anion Gap 10 Blood Urea Nitrogen 52 H Creatinine 5.58 H Est Glomerular 10 L Filtrat Rate mL/min Glucose Level 114 Calcium Level 8.0 L Phosphorus Level 6.0 H Magnesium Level 2.4 Test 03/26/19 07:47 Bedside Glucose 118 Medications Medication Current Medications Albuterol (Proventil 0.083% (Neb)) 2.5 mg ICU RECOVERY PRN HHN .WHEEZING; Start 03/23/19 at 11:30 Aspirin (Aspirin) 325 mg DAILY PO Last administered on 03/25/19at 08:55; Admin Dose 325 MG; Start 03/24/19 at 09:00 Amlodipine Besylate (Norvasc) 5 mg DAILY PO Last administered on 03/25/19at 08:56; Admin Dose 5 MG; Start 03/24/19 at 09:00 Atorvastatin Calcium (Lipitor) 40 mg QHS PO Last administered on 03/25/19at 19:59; Admin Dose 40 MG; Start 03/23/19 at 21:00 Carvedilol (Coreg) 12.5 mg BID PO Last administered on 03/25/19at 19:59; Admin Dose 12.5 MG; Start 03/23/19 at 21:00 Linagliptin (Tradjenta) 5 mg DAILY PO Last administered on 03/25/19 08:56; Admin Dose 5 MG; Start 03/24/19 at 09:00 Metoclopramide HCl (Reglan) 5 mg AC MEALS PO Last administered on 03/26/19 06:41; Admin Dose 5 MG; Start 03/23/19 at 17:05 Ranitidine HCl (Zantac) 150 mg DAILY PO Last administered on 03/25/19 08:56; Admin Dose 150 MG; Start 03/24/19 at 09:00 Sodium Chloride 1,000 ml @ 30 mls/hr Q24H IV Last administered on 03/26/19 06:41; Admin Dose 30 MLS/HR; Start 03/23/19 at 18:00 Ondansetron HCl (Zofran Inj) 4 mg Q4H PRN IV NAUSEA AND/OR VOMITING Last administered on 03/26/19 02:11; Admin Dose 4 MG; Start 03/23/19 at 18:00 Metoclopramide HCl (Reglan) 10 mg Q6H PRN IV NAUSEA Last administered on 03/23/19 20:03; Admin Dose 10 MG; Start 03/23/19 at 18:00 Diagnostic Test (Pha) (Accu-Chek) 1 ea Q4 XX Last administered on 03/26/19 06: 32; Admin Dose 1 EA; Start 03/23/19 at 21:00 Insulin Aspart (Novolog Insulin Pen) NOVOLOG *MILD* ALGORITHM WITH MEALS BEDTIME SC Last administered on 03/24/19 17:11; Admin Dose 1 UNIT; Start 03/23/19 at 21:00 Hydromorphone HCl (Dilaudid) 2 mg Q4H PRN IV SEVERE PAIN LEVEL 7-10 Last administered on 03/26/19 04:47; Admin Dose 2 MG; Start 03/23/19 at 18:00 Glycopyrrolate (Robinul) 1 mg BID PO Last administered on 03/25/19 19:58; Admin Dose 1 MG; Start 03/23/19 at 21:00 Miscellaneous Information 1 ea NOTE XX ; Start 03/23/19 at 18:30 Glucose (Glutose) 15 gm Q15M PRN PO DECREASED GLUCOSE; Start 03/23/19 at 18:30 Glucose (Glutose) 22.5 gm Q15M PRN PO DECREASED GLUCOSE; Start 03/23/19 at 18:30 Dextrose (D50w Syringe) 25 ml Q15M PRN IV DECREASED GLUCOSE; Start 03/23/19 at 18:30 Dextrose (D50w Syringe) 50 ml Q15M PRN IV DECREASED GLUCOSE; Start 03/23/19 at 18:30 Glucagon (Glucagen) 1 mg Q15M PRN IM DECREASED GLUCOSE; Start 03/23/19 at 18:30 Glucose (Glutose) 15 gm Q15M PRN BUCCAL DECREASED GLUCOSE; Start 03/23/19 at 18:30 Epoetin Joseph-epbx (Retacrit (Esrd)) 10,000 unit TuThSa@1700 SC Last ad ministered on 03/24/19at 17:13; Admin Dose 10,000 UNIT; Start 03/24/19 at 17:00 Ferric Sodium Gluconate Complex 125 mg/Sodium Chloride 110 ml @ 110 mls/hr DAILY@1300 IVPB Last administered on 03/25/19at 12:25; Admin Dose 110 MLS/HR; Start 03/24/19 at 13:00; Stop 03/28/19 at 13:59 Acetaminophen/ Hydrocodone Bitart ([place] (5/325)) 1 tab Q6H PRN PO .MOD PAIN 4- 6 Last administered on 03/25/19at 14:33; Admin Dose 1 TAB; Start 03/24/19 at 22:30 Vancomycin HCl (Vanco Iv Per Pharmacy) VANCOMYCIN PER PHARMACY PER PROTOCOL XX ; Start 03/25/19 at 14:30 Piperacillin Sod/ Tazobactam Sod 50 ml @ 100 mls/hr Q8 IVPB Last administered on 03/26/19at 06:41; Admin Dose 100 MLS/HR; Start 03/25/19 at 15:00 DOT ASHLEY MD Mar 26, 2019 08:16
[2019-03-26] MEDS: ASPIRIN 325 MG TAB PO SCH (09:11)
[2019-03-26] MEDS: RANITIDINE 150 MG TAB PO SCH (09:11)
[2019-03-26] MEDS: AMLODIPINE 5 MG TAB PO SCH (09:12)
[2019-03-26] MEDS: LINAGLIPTIN 5 MG TABLET PO SCH (09:12)
--- NOTE | 2019-03-26 09:53 | QN ---
Documentation Comment No c/o. AFVSS R leg incisions CDI, foot is warm and hyperemic with demarcation of the 1-3 toes - WBC down to 11, Cr up to 5 and decr UO - awaiting TMA with Dr. Caal, foot is well perfused s/p fem-PT bypass WALTER LOWERY MD Mar 26, 2019 09:53
[2019-03-26 11:30] VITALS: BP 128/63; PULSE 82; RESP 18
[2019-03-26] MEDS: CALCIUM ACETATE 667 MG CAP PO SCH ×2 (11:59→17:07)
[2019-03-26] MEDS: SOD FERRIC GLUC COMPLX 125 MG in SOD CHLORIDE 0.9% 100 ML IVPB SCH (12:26)
[2019-03-26] MEDS ORDERED: NA POLYST SULFON 15 GM/60 ML BTL PO ONE (16:30)
--- NOTE | 2019-03-26 17:04 | PREAC ---
Date/Time of Note Date/Time of Note DATE: 03/26/19 TIME: 17:03 Anesthesia Eval and Record Evaluation Time Pre-Procedure Interview DATE: 03/26/19 TIME: 17:03 Age 68 Sex male NPO: 8 hrs Preoperative diagnosis Gangrene of toe of right foot Planned procedure RIGHT FOOT TRANSMETATARSAL AMPUTATION Past Medical History Past Medical History: Includes Cardio: HTN, Dyslipidemia, CAD Endo: Diabetes Renal: CKD Heme: Anemia Surgery & Anesthesia Issues No known issue Meds Anticoagulation: No Beta Sweta within 24 hr: No Reason Beta Sweta not given: Pt. not on B-Sweta Active Scripts Amoxicillin/Potassium Clav (Amox-Clav 875-125 mg Tablet) 875-125 mg Tab, 1 TAB PO BID for 5 Days, #10 TAB 0 Refills Prov:JOSE PARRY MD 03/18/19 Linagliptin (TRADJENTA) 5 Mg Tablet, 5 MG PO DAILY for 30 Days, #30 TAB 3 Refills Prov:JOSE PARRY MD 03/18/19 Hydrocodone Bit-Acetaminophen (Hydrocodone Bit-APAP) 5-325MG Tablet, 1 TAB PO Q6H PRN for .MOD PAIN 4-6 for 5 Days, #20 TAB 0 Refills Prov:JOSE PARRY MD 03/18/19 Ferrous Sulfate* (Ferrous Sulfate*) 325 Mg Tabec, 325 MG PO TID for 30 Days, #90 TAB 2 Refills Prov:JOSE PARRY MD 03/18/19 Ranitidine Hcl* (Ranitidine Hcl*) 150 Mg Tablet, 150 MG PO DAILY for 30 Days, #30 TAB 5 Refills Prov:JOSE PARRY MD 02/02/19 Metoclopramide Hcl* (Metoclopramide Hcl*) 5 Mg Tablet, 5 MG PO AC MEALS for 30 Days, #90 TAB 5 Refills Prov:JOSE PARRY MD 02/02/19 Carvedilol* (Carvedilol*) 12.5 Mg Tablet, 12.5 MG PO BID for 30 Days, #60 TAB 5 Refills Prov:JOSE PARRY MD 02/02/19 Cilostazol* (Cilostazol*) 100 Mg Tablet, 50 MG PO BID for 30 Days, #30 TAB 5 Refills Prov:JOSE PARRY MD 02/02/19 Reported Medications Glycopyrrolate* (Glycopyrrolate*) 1 Mg Tablet, 1 MG PO BID, TAB 01/29/19 Amlodipine Besylate* (Norvasc*) 5 Mg Tablet, 5 MG PO DAILY, TAB 01/29/19 Ergocalciferol (Vitamin D2) (VITAMIN D2) 50,000 Unit Capsule, 31598 UNIT PO Q FRI, CAP 01/29/19 Atorvastatin* (Atorvastatin*) 40 Mg Tablet, 40 MG PO QHS, #30 TAB 01/29/19 Current Medications Albuterol (Proventil 0.083% (Neb)) 2.5 mg ICU RECOVERY PRN HHN .WHEEZING; Start 03/23/19 at 11:30 Aspirin (Aspirin) 325 mg DAILY PO Last administered on 03/26/19at 09:11; Admin Dose 325 MG; Start 03/24/19 at 09:00 Amlodipine Besylate (Norvasc) 5 mg DAILY PO Last administered on 03/26/19 09:12; Admin Dose 5 MG; Start 03/24/19 at 09:00 Atorvastatin Calcium (Lipitor) 40 mg QHS PO Last administered on 03/25/19 19:59; Admin Dose 40 MG; Start 03/23/19 at 21:00 Carvedilol (Coreg) 12.5 mg BID PO Last administered on 03/26/19 09:12; Admin Dose 12.5 MG; Start 03/23/19 at 21:00 Linagliptin (Tradjenta) 5 mg DAILY PO Last administered on 03/26/19 09:12; Admin Dose 5 MG; Start 03/24/19 at 09:00 Metoclopramide HCl (Reglan) 5 mg AC MEALS PO Last administered on 03/26/19 11:59; Admin Dose 5 MG; Start 03/23/19 at 17:05 Ranitidine HCl (Zantac) 150 mg DAILY PO Last administered on 03/26/19 09:11; Admin Dose 150 MG; Start 03/24/19 at 09:00 Ondansetron HCl (Zofran Inj) 4 mg Q4H PRN IV NAUSEA AND/OR VOMITING Last administered on 03/26/19at 12:33; Admin Dose 4 MG; Start 03/23/19 at 18:00 Metoclopramide HCl (Reglan) 10 mg Q6H PRN IV NAUSEA Last administered on 03/23/19 20:03; Admin Dose 10 MG; Start 03/23/19 at 18:00 Diagnostic Test (Pha) (Accu-Chek) 1 ea Q4 XX Last administered on 03/26/19at 12:26; Admin Dose 1 EA; Start 03/23/19 at 21:00 Insulin Aspart (Novolog Insulin Pen) NOVOLOG *MILD* ALGORITHM WITH MEALS BEDTIME SC Last administered on 03/24/19at 17:11; Admin Dose 1 UNIT; Start 03/23/19 at 21:00 Hydromorphone HCl (Dilaudid) 2 mg Q4H PRN IV SEVERE PAIN LEVEL 7-10 Last administered on 03/26/19 04:47; Admin Dose 2 MG; Start 03/23/19 at 18:00 Miscellaneous Information 1 ea NOTE XX ; Start 03/23/19 at 18:30 Glucose (Glutose) 15 gm Q15M PRN PO DECREASED GLUCOSE; Start 03/23/19 at 18:30 Glucose (Glutose) 22.5 gm Q15M PRN PO DECREASED GLUCOSE; Start 03/23/19 at 18:30 Dextrose (D50w Syringe) 25 ml Q15M PRN IV DECREASED GLUCOSE; Start 03/23/19 at 18:30 Dextrose (D50w Syringe) 50 ml Q15M PRN IV DECREASED GLUCOSE; Start 03/23/19 at 18:30 Glucagon (Glucagen) 1 mg Q15M PRN IM DECREASED GLUCOSE; Start 03/23/19 at 18:30 Glucose (Glutose) 15 gm Q15M PRN BUCCAL DECREASED GLUCOSE; Start 03/23/19 at 18:30 Epoetin Joseph-epbx (Retacrit (Esrd)) 10,000 unit TuThSa@1700 SC Last administ ered on 03/24/19at 17:13; Admin Dose 10,000 UNIT; Start 03/24/19 at 17:00 Ferric Sodium Gluconate Complex 125 mg/Sodium Chloride 110 ml @ 110 mls/hr DAILY@1300 IVPB Last administered on 03/26/19 12:26; Admin Dose 110 MLS/HR; Start 03/24/19 at 13:00; Stop 03/28/19 at 13:59 Acetaminophen/ Hydrocodone Bitart ([place] (5/325)) 1 tab Q6H PRN PO .MOD PAIN 4- 6 Last administered on 03/25/19at 14:33; Admin Dose 1 TAB; Start 03/24/19 at 22:30 Vancomycin HCl (Vanco Iv Per Pharmacy) VANCOMYCIN PER PHARMACY PER PROTOCOL XX ; Start 03/25/19 at 14:30 Piperacillin Sod/ Tazobactam Sod 50 ml @ 100 mls/hr Q8 IVPB Last administered on 03/26/19at 14:14; Admin Dose 100 MLS/HR; Start 03/25/19 at 15:00 Calcium Acetate (Phoslo) 667 mg WITH MEALS PO Last administered on 03/26/19at 11:59; Admin Dose 667 MG; Start 03/26/19 at 12:00 Sodium Chloride 1,000 ml @ 70 mls/hr [id number] IV Last administered on 03/26/19at 09:12; Admin Dose 70 MLS/HR; Start 03/26/19 at 08:30 Miscellaneous Information (*Rx Drug Level Order Reminder*) RANDOM VANCO W/ AM LABS... 0500 ONCE XX ; Start 03/27/19 at 05:00; Stop 03/27/19 at 05:01 Meds reviewed: Yes Allergies Coded Allergies: No Known Allergy (Unverified , 03/23/19) Allergies Reviewed: Yes Labs/Studies Labs Reviewed: Reviewed by anesthesiologist Result Diagram: 03/26/19 0525 03/26/19 1413 Laboratory Tests 03/26/19 05:25 03/26/19 14:13 test: N/A Studies: ECG (SR), CXR (Right upper and lower lung infiltrates, highly concerning for pneumonia in the appropriate clinical setting. Findings are new since prior exam.), 2D Echo (EF 60%) Pre-procedure Exam Last vitals Vital Signs Date Temp Pulse Resp B/P (MAP) Pulse Ox O2 O2 Flow FiO2 Time Delivery Rate 03/26/19 97.6 82 18 128/63 100 Room Air 11:30 (84) 03/26/19 2.0 11:20 Airway: Adequate mouth opening Mallampati: Mallampati II Teeth: Normal Lung: Normal Heart: Normal ASA Physical Status ASA physical status: 3 Emergency: None Planned Anesthetic General/MAC: ETT Pre-operative Attestations Prior to commencing anesthesia and surgery, the patient was re-evaluated, there was verification of: *The patient's identity *The results of appropriate recent lab work and preoperative vital signs *The above evaluation not changing prior to induction *Anesthetic plan, risk benefits, alternative and complications discussed with patient/family; questions answered; patient/family understands, accepts and wishes to proceed. AMINA BRADLEY Mar 26, 2019 17:04
[2019-03-26] MEDS: EPOETIN ALFA-EPBX (ESRD) 10,000 UNIT/ML VIAL SC SCH (17:07)
[2019-03-26] MEDS ORDERED: SOD CHLORIDE 0.9% 250 ML IV* ONE (17:33)
[2019-03-26 19:29] VITALS: BP 121/60; PULSE 79; RESP 20
--- NOTE | 2019-03-26 20:27 | PN ---
Date/Time of Note Date/Time of Note DATE: 03/26/19 TIME: 20:16 Assessment/Plan VTE Prophylaxis Risk score (from Ns)>0 risk: 6 SCD applied (from Ns): Yes Pharmacological prophylaxis: heparin Lines/Catheters [facility]from [facility] Peripheral IV Urinary Cath still in place: Yes Reason Cath still needed: urinary retention Assessment/Plan Problems: (1) Acute on chronic renal failure Status: Acute Comment: Cr increased by > 1 point overnight. K upper limits of normal. Etiology unclear. ? blood loss, low BP. Unlikely due to initiation of vanco. Will transfuse. Nephrology monitoring. May need to initiate dialysis. (2) Leukocytosis Status: Acute Comment: Improved today since starting antibiotics. Will continue until after amputation. Expect improvement in WBC after TMTA tomorrow. (3) Anemia Status: Chronic Comment: Markedly worse today. Will transfuse 2 units PRBC tonight in advance of surgery tomorrow. (4) Type 2 diabetes mellitus with diabetic peripheral angiopathy with gangrene Status: Acute Comment: S/p revascularization. Plan TMTA tomorrow. Excellent glycemic control. Cont. linagliptin. (5) Essential (primary) hypertension Status: Chronic Comment: Excellent BP control. Cont. current regimen. (6) Hyperlipidemia Status: Chronic Comment: Cont. statin (7) Benign prostatic hyperplasia with urinary obstruction Status: Chronic Comment: River in place. Monitor. Result Diagram: 03/26/19 0525 03/26/19 1413 Results 24hrs Laboratory Tests Test 03/25/19 21:15 03/26/19 01:04 03/26/19 05:25 03/26/19 06:29 Bedside Glucose 135 120 114 White Blood Count 11.2 #H Red Blood Count 2.37 L Hemoglobin 7.0 L Hematocrit 21.2 L Mean Corpuscular 89.5 Volume Mean Corpuscular 29.5 Hemoglobin Mean Corpuscular 33.0 Hemoglobin Concent Red Cell 13.6 Distribution Width Platelet Count 409 Mean Platelet Volume 9.8 Immature 1.200 H Granulocytes % Neutrophils % 78.1 H Lymphocytes % 10.2 L Monocytes % 7.2 Eosinophils % 2.9 Basophils % 0.4 Nucleated Red Blood 0.3 H Cells % Immature 0.140 H Granulocytes # Neutrophils # 8.8 H Lymphocytes # 1.2 Monocytes # 0.8 Eosinophils # 0.3 Basophils # 0.0 Nucleated Red Blood 0.0 Cells # Sodium Level 135 Potassium Level 5.2 H Chloride Level 107 Carbon Dioxide Level 18 L Anion Gap 10 Blood Urea Nitrogen 52 H Creatinine 5.58 H Est Glomerular 10 L Filtrat Rate mL/min Glucose Level 114 Calcium Level 8.0 L Phosphorus Level 6.0 H Magnesium Level 2.4 B-Type Natriuretic 69782 H Peptide Test 03/26/19 07:47 03/26/19 12:03 03/26/19 12:30 03/26/19 14:13 Bedside Glucose 118 118 Urine Random Sodium < 13 L Potassium Level 5.3 H Test 03/26/19 17:19 Bedside Glucose 122 Subjective 24 Hr Interval Summary Constitutional: no complaints Respiratory: no complaints Cardiovascular: no complaints Gastrointestinal: constipation Musculoskeletal: bone/joint pain (RLE but controlled) Neurologic: no complaints Exam/Review of Systems Exam Vitals VS - Last 72 Hours, by Label Date Temp Pulse Resp B/P (MAP) Pulse Ox O2 O2 Flow FiO2 Time Delivery Rate 03/26/19 98.0 79 20 121/60 90 19:29 (80) 03/26/19 2.0 17:48 03/26/19 97.6 82 18 128/63 100 Room Air 11:30 (84) 03/26/19 Nasal 2.0 11:20 Cannula 03/26/19 97.5 77 19 117/59 94 Nasal 07:40 (78) Cannula 03/26/19 97.6 72 17 122/62 93 04:00 (82) 03/26/19 2.0 02:32 03/26/19 98.0 60 17 114/60 94 00:00 (78) 03/25/19 2.0 23:00 03/25/19 98.2 69 17 103/59 94 20:00 (74) 03/25/19 Nasal 2.0 19:55 Cannula 03/25/19 97.7 73 16 93/54 (67) 92 15:32 03/25/19 98.0 77 16 119/58 95 11:26 (78) 03/25/19 98.7 87 16 124/59 93 07:45 (80) 03/25/19 Nasal 2.0 07:45 Cannula 03/25/19 4.0 07:23 03/25/19 97.9 83 17 102/59 99 04:00 (73) 03/25/19 Nasal 3.0 03:51 Cannula 03/25/19 98.2 98 17 147/66 95 00:25 (93) 03/24/19 4.0 23:22 03/24/19 90 10 133/79 91 Nasal 3.0 22:00 (97) Cannula 03/24/19 84 8 127/69 99 Nasal 3.0 21:00 (88) Cannula 03/24/19 Nasal 3.0 20:00 Cannula 03/24/19 76 20:00 03/24/19 98.1 77 11 123/66 97 Nasal 3.0 20:00 (85) Cannula 03/24/19 79 14 129/66 94 Nasal 3.0 19:00 (87) Cannula 03/24/19 80 18 131/57 97 Nasal 18:00 (81) Cannula 03/24/19 97.9 79 8 128/67 99 Nasal 17:00 (87) Cannula 03/24/19 3.0 16:13 03/24/19 78 8 129/68 100 Nasal 16:00 (88) Cannula 03/24/19 78 16:00 03/24/19 78 8 118/68 99 Nasal 15:00 (85) Cannula 03/24/19 82 12 127/65 99 Nasal 14:00 (85) Cannula 03/24/19 89 15 156/54 99 Nasal 13:00 (88) Cannula 03/24/19 98.0 84 11 151/71 100 Nasal 12:00 (97) Cannula 03/24/19 83 12:00 03/24/19 84 18 141/73 100 Nasal 11:00 (95) Cannula 03/24/19 82 11 137/71 97 Nasal 10:00 (93) Cannula 03/24/19 83 9 151/70 99 Nasal 09:00 (97) Cannula 03/24/19 Nasal 3.0 08:00 Cannula 03/24/19 82 08:00 03/24/19 83 8 143/69 100 Nasal 08:00 (93) Cannula 03/24/19 81 7 128/69 95 Nasal 07:00 (88) Cannula 03/24/19 99 2.5 06:51 03/24/19 83 15 130/48 100 05:30 (75) 03/24/19 84 9 127/69 98 Nasal 3.0 05:00 (88) Cannula 03/24/19 85 9 131/48 94 04:30 (75) 03/24/19 97.8 89 16 142/73 98 Nasal 3.0 04:00 (96) Cannula 03/24/19 88 04:00 03/24/19 85 13 155/54 100 03:30 (87) 03/24/19 85 14 134/70 100 Nasal 3.0 03:00 (91) Cannula 03/24/19 87 13 152/54 100 02:30 (86) 03/24/19 88 13 129/67 95 Nasal 3.0 02:00 (87) Cannula 03/24/19 90 13 152/54 100 01:30 (86) 03/24/19 91 13 132/71 100 Nasal 3.0 01:00 (91) Cannula 03/24/19 92 13 151/53 99 00:30 (85) 03/24/19 98.5 93 14 136/72 99 Nasal 3.0 00:00 (93) Cannula 03/24/19 93 00:00 03/24/19 Nasal 3.0 00:00 Cannula 03/23/19 94 19 149/50 99 23:30 (83) 03/23/19 98 2.5 23:27 03/23/19 95 14 144/77 99 Nasal 23:00 (99) Cannula 03/23/19 96 13 152/49 100 22:30 (83) 03/23/19 97 12 141/73 99 Nasal 22:00 (95) Cannula 03/23/19 99 10 162/53 100 21:30 (89) 03/23/19 98 12 141/69 97 Nasal 21:00 (93) Cannula 03/23/19 97 10 156/49 99 20:30 (84) Vital Signs Date Temp Pulse Resp B/P (MAP) Pulse Ox O2 O2 Flow FiO2 Time Delivery Rate 03/26/19 98.0 79 20 121/60 90 19:29 (80) 03/26/19 2.0 17:48 03/26/19 Room Air 11:30 Intake and Output 03/25/19 03/25/19 03/26/19 1515:00 23:00 07:00 IntakeIntake Total 110 ml 2050 ml 60 ml OutputOutput Total 75 ml 150 ml BalanceBalance 35 ml 2050 ml -90 ml Constitutional: alert, oriented, well developed Respiratory: clear to auscultation, normal air movement Cardiovascular: regular rate and rhythm; No edema, No murmurs/extra sounds, No rub Gastrointestinal: soft, nl liver, spleen, non-tender, bowel sounds; No mass, No rebound or guarding Musculoskeletal: No nl extremities to inspection (R foot wrapped) Extremities: No cyanosis, No clubbing, No edema 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, nl mental status, nl speech, nl strength Additional Comments Bedside Glucose - 72 Hours Test 03/23/19 21:32 03/24/19 01:07 03/24/19 04:57 03/24/19 09:05 Bedside 141 107 107 93 Glucose mg/dL (70-220) mg/dL (70-220) mg/dL (70-220) mg/dL (70-220) Test 03/24/19 12:04 03/24/19 16:58 03/24/19 20:22 03/25/19 01:27 Bedside 90 159 169 158 Glucose mg/dL (70-220) mg/dL (70-220) mg/dL (70-220) mg/dL (70-220) Test 03/25/19 05:40 03/25/19 07:31 03/25/19 12:04 03/25/19 17:09 Bedside 134 119 139 117 Glucose mg/dL (70-220) mg/dL (70-220) mg/dL (70-220) mg/dL (70-220) Test 03/25/19 21:15 03/26/19 01:04 03/26/19 06:29 03/26/19 07:47 Bedside 135 120 114 118 Glucose mg/dL (70-220) mg/dL (70-220) mg/dL (70-220) mg/dL (70-220) Test 03/26/19 12:03 03/26/19 17:19 Bedside 118 122 Glucose mg/dL (70-220) mg/dL (70-220) Results Results 24hrs Laboratory Tests Test 03/25/19 21:15 03/26/19 01:04 03/26/19 05:25 03/26/19 06:29 Bedside Glucose 135 120 114 White Blood Count 11.2 #H Red Blood Count 2.37 L Hemoglobin 7.0 L Hematocrit 21.2 L Mean Corpuscular 89.5 Volume Mean Corpuscular 29.5 Hemoglobin Mean Corpuscular 33.0 Hemoglobin Concent Red Cell 13.6 Distribution Width Platelet Count 409 Mean Platelet Volume 9.8 Immature 1.200 H Granulocytes % Neutrophils % 78.1 H Lymphocytes % 10.2 L Monocytes % 7.2 Eosinophils % 2.9 Basophils % 0.4 Nucleated Red Blood 0.3 H Cells % Immature 0.140 H Granulocytes # Neutrophils # 8.8 H Lymphocytes # 1.2 Monocytes # 0.8 Eosinophils # 0.3 Basophils # 0.0 Nucleated Red Blood 0.0 Cells # Sodium Level 135 Potassium Level 5.2 H Chloride Level 107 Carbon Dioxide Level 18 L Anion Gap 10 Blood Urea Nitrogen 52 H Creatinine 5.58 H Est Glomerular 10 L Filtrat Rate mL/min Glucose Level 114 Calcium Level 8.0 L Phosphorus Level 6.0 H Magnesium Level 2.4 B-Type Natriuretic 84707 H Peptide Test 03/26/19 07:47 03/26/19 12:03 03/26/19 12:30 03/26/19 14:13 Bedside Glucose 118 118 Urine Random Sodium < 13 L Potassium Level 5.3 H Test 03/26/19 17:19 Bedside Glucose 122 Medications Medication Current Medications Albuterol (Proventil 0.083% (Neb)) 2.5 mg ICU RECOVERY PRN HHN .WHEEZING; Start 03/23/19 at 11:30 Aspirin (Aspirin) 325 mg DAILY PO Last administered on 03/26/19at 09:11; Admin Dose 325 MG; Start 03/24/19 at 09:00 Amlodipine Besylate (Norvasc) 5 mg DAILY PO Last administered on 03/26/19at 09:12; Admin Dose 5 MG; Start 03/24/19 at 09:00 Atorvastatin Calcium (Lipitor) 40 mg QHS PO Last administered on 03/25/19at 19:59; Admin Dose 40 MG; Start 03/23/19 at 21:00 Carvedilol (Coreg) 12.5 mg BID PO Last administered on 03/26/19 09:12; Admin Dose 12.5 MG; Start 03/23/19 at 21:00 Linagliptin (Tradjenta) 5 mg DAILY PO Last administered on 03/26/19 09:12; Admin Dose 5 MG; Start 03/24/19 at 09:00 Metoclopramide HCl (Reglan) 5 mg AC MEALS PO Last administered on 03/26/19 17:07; Admin Dose 5 MG; Start 03/23/19 at 17:05 Ranitidine HCl (Zantac) 150 mg DAILY PO Last administered on 03/26/19 09:11; Admin Dose 150 MG; Start 03/24/19 at 09:00 Ondansetron HCl (Zofran Inj) 4 mg Q4H PRN IV NAUSEA AND/OR VOMITING Last admin istered on 03/26/19 12:33; Admin Dose 4 MG; Start 03/23/19 at 18:00 Metoclopramide HCl (Reglan) 10 mg Q6H PRN IV NAUSEA Last administered on 03/23/19 20:03; Admin Dose 10 MG; Start 03/23/19 at 18:00 Diagnostic Test (Pha) (Accu-Chek) 1 ea Q4 XX Last administered on 03/26/19 17:03; Admin Dose 1 EA; Start 03/23/19 at 21:00 Insulin Aspart (Novolog Insulin Pen) NOVOLOG *MILD* ALGORITHM WITH MEALS BED TIME SC Last administered on 03/24/19 17:11; Admin Dose 1 UNIT; Start 03/23/19 at 21:00 Hydromorphone HCl (Dilaudid) 2 mg Q4H PRN IV SEVERE PAIN LEVEL 7-10 Last administered on 03/26/19 04:47; Admin Dose 2 MG; Start 03/23/19 at 18:00 Miscellaneous Information 1 ea NOTE XX ; Start 03/23/19 at 18:30 Glucose (Glutose) 15 gm Q15M PRN PO DECREASED GLUCOSE; Start 03/23/19 at 18:30 Glucose (Glutose) 22.5 gm Q15M PRN PO DECREASED GLUCOSE; Start 03/23/19 at 18:30 Dextrose (D50w Syringe) 25 ml Q15M PRN IV DECREASED GLUCOSE; Start 03/23/19 at 18:30 Dextrose (D50w Syringe) 50 ml Q15M PRN IV DECREASED GLUCOSE; Start 03/23/19 at 18:30 Glucagon (Glucagen) 1 mg Q15M PRN IM DECREASED GLUCOSE; Start 03/23/19 at 18:30 Glucose (Glutose) 15 gm Q15M PRN BUCCAL DECREASED GLUCOSE; Start 03/23/19 at 18:30 Epoetin Joseph-epbx (Retacrit (Esrd)) 10,000 unit TuThSa@1700 SC Last administered on 03/26/19 17:07; Admin Dose 10,000 UNIT; Start 03/24/19 at 17:00 Ferric Sodium Gluconate Complex 125 mg/Sodium Chloride 110 ml @ 110 mls/hr DAILY@1300 IVPB Last administered on 03/26/19 12:26; Admin Dose 110 MLS/HR; Start 03/24/19 at 13:00; Stop 03/28/19 at 13:59 Acetaminophen/ Hydrocodone Bitart ([place] (5/325)) 1 tab Q6H PRN PO .MOD PAIN 4- 6 Last administered on 03/25/19 14:33; Admin Dose 1 TAB; Start 03/24/19 at 22:30 Vancomycin HCl (Vanco Iv Per Pharmacy) VANCOMYCIN PER PHARMACY PER PROTOCOL XX ; Start 03/25/19 at 14:30 Piperacillin Sod/ Tazobactam Sod 50 ml @ 100 mls/hr Q8 IVPB Last administered on 03/26/19at 14:14; Admin Dose 100 MLS/HR; Start 03/25/19 at 15:00 Calcium Acetate (Phoslo) 667 mg WITH MEALS PO Last administered on 03/26/19 17:07; Admin Dose 667 MG; Start 03/26/19 at 12:00 Sodium Chloride 1,000 ml @ 70 mls/hr [id number] IV Last administered on 03/26/19 09:12; Admin Dose 70 MLS/HR; Start 03/26/19 at 08:30 Miscellaneous Information (*Rx Drug Level Order Reminder*) RANDOM VANCO W/ AM LABS... 0500 ONCE XX ; Start 03/27/19 at 05:00; Stop 03/27/19 at 05:01 JOSE PARRY MD Mar 26, 2019 20:26
[2019-03-26] MEDS: ATORVASTATIN 40 MG TAB PO SCH (20:28)
[2019-03-26 23:32] VITALS: BP 128/66; PULSE 76; RESP 18
[2019-03-27] VITALS (34 sets, daily range): BP systolic 122–168; BP diastolic 61–89; PULSE 75–101; RESP 18–41
[2019-03-27] MEDS: ACCU-CHEK XX SCH ×6 (00:38→21:00)
[2019-03-27] MEDS: HYDROmorphONE 2 MG/ML SYG IV PRN ×2 (03:09→14:52)
[2019-03-27] MEDS: ONDANSETRON 4 MG INJ IV PRN ×3 (03:09→14:10)
[2019-03-27] MEDS: PIPER-TAZO 2.25 GM (PMX) 50 ML IVPB SCH ×3 (05:48→21:50)
[2019-03-27] MEDS: METOCLOPRAMIDE 5 MG TAB PO SCH ×2 (06:25→19:45)
[2019-03-27] MEDS: CALCIUM ACETATE 667 MG CAP PO SCH ×3 (08:00→19:46)
[2019-03-27] MEDS: INSULIN ASPART [NOVOLOG] 3 ML PEN SC SCH ×4 (08:00→21:00)
--- NOTE | 2019-03-27 08:14 | PN ---
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 Subjective 24 Hr Interval Summary Patient was seen at bedside. Patient is in no acute distress. Denies overnight adverse events. Denies fever, chills, nausea or vomiting. Denies recent t rauma. Constitutional: no complaints Pain Control: well controlled Exam/Review of Systems Vital Signs Vitals Exam Free Text/Dictation Patient continues to have gangrenous changes of the right forefoot with increase in temperature gradient improved since after his arterial intervention. The foot feels warm. There is no erythema and no pus or active bleeding. No other changes noted on examination. CJ DODD DPM Mar 27, 2019 08:14
[2019-03-27] MEDS: METOCLOPRAMIDE 10 MG INJ IV PRN (08:40)
[2019-03-27] MEDS: AMLODIPINE 5 MG TAB PO SCH (08:41)
[2019-03-27] MEDS: LINAGLIPTIN 5 MG TABLET PO SCH (08:42)
--- NOTE | 2019-03-27 08:43 | CONS ---
Assessment/Plan Assessment/Plan Assessment/Plan (Daily) 1. Acute renal failure, await labs, probably related to transient hypotension without evid obstruction. 2. Dry heaving, ? nasuea, in part sec to 1. 3. Pul infiltrate, will repeat cxr today. 4. Suspect coagulopathy, ? inhibitor as PTT did not correct with plasma 5. Given all the above would reasonable to postpone surgery, pending labs 6. Anemia in part sec to ckd, transfused last night. Consultation Date/Type/Reason Admit Date/Time Mar 23, 2019 at 06:13 Initial Consult Date 03/21/19 Date/Time of Note DATE: 03/27/19 TIME: 08:38 Detailed Summary Respiratory: No cough, No pleuritic pain, No shortness of breath Cardiovascular: chest pain Gastrointestinal: other (nausea and again much saliva resulting in coughing) Genitourinary: other (short in place) Exam/Review of Systems Exam Vitals Vital Signs Date Temp Pulse Resp B/P (MAP) Pulse Ox O2 O2 Flow FiO2 Time Delivery Rate 03/27/19 98.3 78 18 122/61 98 08:14 (81) 03/26/19 Nasal 2.0 20:00 Cannula Intake and Output 03/26/19 03/26/19 03/27/19 1515:00 23:00 07:00 IntakeIntake Total 100 ml 700 ml 600 ml OutputOutput Total 250 ml BalanceBalance 100 ml 700 ml 350 ml Neck: jvd (is present) Cardiovascular: regular rate and rhythm; No S3 Gastrointestinal: distended (without tenderness); No hepatomegaly, No splenomegaly Extremities: edema (sacral edema 2+) Results Result Diagram: 03/26/19 0525 03/26/19 1413 Results 24hrs Laboratory Tests Test 03/26/19 12:03 03/26/19 12:30 03/26/19 14:13 03/26/19 17:19 Bedside Glucose 118 122 Urine Random < 13 L Sodium Potassium Level 5.3 H Test 03/26/19 20:30 03/27/19 00:32 03/27/19 03:01 03/27/19 05:12 Bedside Glucose 156 127 130 130 Test 03/27/19 06:05 03/27/19 07:58 03/27/19 08:02 Lab Scanned BLOOD TRANSFUSIO Report N White Blood Count Pending Red Blood Count Pending Hemoglobin Pending Hematocrit Pending Mean Corpuscular Pending Volume Mean Corpuscular Pending Hemoglobin Mean Corpuscular Pending Hemoglobin Concen t Red Cell Pending Distribution Width Platelet Count Pending Mean Platelet Pending Volume Bedside Glucose 136 Medications Medication Current Medications Albuterol (Proventil 0.083% (Neb)) 2.5 mg ICU RECOVERY PRN HHN .WHEEZING; Start 03/23/19 at 11:30 Aspirin (Aspirin) 325 mg DAILY PO Last administered on 03/26/19 09:11; Admin Dose 325 MG; Start 03/24/19 at 09:00 Amlodipine Besylate (Norvasc) 5 mg DAILY PO Last administered on 03/26/19 09:12; Admin Dose 5 MG; Start 03/24/19 at 09:00 Atorvastatin Calcium (Lipitor) 40 mg QHS PO Last administered on 03/26/19 20:28; Admin Dose 40 MG; Start 03/23/19 at 21:00 Carvedilol (Coreg) 12.5 mg BID PO Last administered on 03/26/19 20:28; Admin Dose 12.5 MG; Start 03/23/19 at 21:00 Linagliptin (Tradjenta) 5 mg DAILY PO Last administered on 03/26/19 09:12; Admin Dose 5 MG; Start 03/24/19 at 09:00 Metoclopramide HCl (Reglan) 5 mg AC MEALS PO Last administered on 03/26/19 17:07; Admin Dose 5 MG; Start 03/23/19 at 17:05 Ranitidine HCl (Zantac) 150 mg DAILY PO Last administered on 03/26/19 09:11; Admin Dose 150 MG; Start 03/24/19 at 09:00 Ondansetron HCl (Zofran Inj) 4 mg Q4H PRN IV NAUSEA AND/OR VOMITING Last administered on 03/27/19 03:09; Admin Dose 4 MG; Start 03/23/19 at 18:00 Metoclopramide HCl (Reglan) 10 mg Q6H PRN IV NAUSEA Last administered on 03/23/19 20:03; Admin Dose 10 MG; Start 03/23/19 at 18:00 Diagnostic Test (Pha) (Accu-Chek) 1 ea Q4 XX Last administered on 7/12/19at 05:14; Admin Dose 1 EA; Start 03/23/19 at 21:00 Insulin Aspart (Novolog Insulin Pen) NOVOLOG *MILD* ALGORITHM WITH MEALS BEDTIME SC Last administered on 03/24/19at 17:11; Admin Dose 1 UNIT; Start 03/23/19 at 21:00 Hydromorphone HCl (Dilaudid) 2 mg Q4H PRN IV SEVERE PAIN LEVEL 7-10 Last administered on 03/27/19at 03:09; Admin Dose 2 MG; Start 03/23/19 at 18:00 Miscellaneous Information 1 ea NOTE XX ; Start 03/23/19 at 18:30 Glucose (Glutose) 15 gm Q15M PRN PO DECREASED GLUCOSE; Start 03/23/19 at 18:30 Glucose (Glutose) 22.5 gm Q15M PRN PO DECREASED GLUCOSE; Start 03/23/19 at 18:30 Dextrose (D50w Syringe) 25 ml Q15M PRN IV DECREASED GLUCOSE; Start 03/23/19 at 18:30 Dextrose (D50w Syringe) 50 ml Q15M PRN IV DECREASED GLUCOSE; Start 03/23/19 at 18:30 Glucagon (Glucagen) 1 mg Q15M PRN IM DECREASED GLUCOSE; Start 03/23/19 at 18:30 Glucose (Glutose) 15 gm Q15M PRN BUCCAL DECREASED GLUCOSE; Start 03/23/19 at 18:30 Epoetin Joseph-epbx (Retacrit (Esrd)) 10,000 unit TuThSa@1700 SC Last administered on 03/26/19at 17:07; Admin Dose 10,000 UNIT; Start 03/24/19 at 17:00 Ferric Sodium Gluconate Complex 125 mg/Sodium Chloride 110 ml @ 110 mls/hr DAILY@1300 IVPB Last administered on 03/26/19at 12:26; Admin Dose 110 MLS/HR; Start 03/24/19 at 13:00; Stop 03/28/19 at 13:59 Acetaminophen/ Hydrocodone Bitart ([place] (5/325)) 1 tab Q6H PRN PO .MOD PAIN 4- 6 Last administered on 03/25/19at 14:33; Admin Dose 1 TAB; Start 03/24/19 at 22:30 Vancomycin HCl (Vanco Iv Per Pharmacy) VANCOMYCIN PER PHARMACY PER PROTOCOL XX ; Start 03/25/19 at 14:30 Piperacillin Sod/ Tazobactam Sod 50 ml @ 100 mls/hr Q8 IVPB Last administered on 03/26/19at 14:14; Admin Dose 100 MLS/HR; Start 03/25/19 at 15:00 Calcium Acetate (Phoslo) 667 mg WITH MEALS PO Last administered on 03/26/19at 17:07; Admin Dose 667 MG; Start 03/26/19 at 12:00 Sodium Chloride 1,000 ml @ 70 mls/hr [id number] IV Last administered on 03/26/19at 09:12; Admin Dose 70 MLS/HR; Start 03/26/19 at 08:30 DOT ASHLEY MD Mar 27, 2019 08:43
[2019-03-27] MEDS: ASPIRIN 325 MG TAB PO SCH (09:30)
[2019-03-27] MEDS: RANITIDINE 150 MG TAB PO SCH (09:30)
[2019-03-27] MEDS ORDERED: FUROSEMIDE 40 MG INJ ONE (11:05)
[2019-03-27] MEDS ORDERED: FUROSEMIDE 40 MG INJ IV ONE (11:30)
[2019-03-27] MEDS ORDERED: DEXTROSE 5% 1,000 ML IV SCH (11:30)
--- NOTE | 2019-03-27 11:45 | QN ---
Documentation Comment Labored breathing on BIPAP, UO has been minimal and Cr continues to climb. Transferred to ICU. He is edematous. R foot is warm and toes have dry gangrene which is stable - for L femoral Kalyan cath for urgent HD, d/w Bibi Boles and WALTER Olguin MD Mar 27, 2019 11:45
[2019-03-27] MEDS ORDERED: HEPARIN 1000 UNITS/ML 10 ML INJ ONE (11:47)
[2019-03-27] MEDS ORDERED: LIDOCAINE 1% (MDV) 20 ML INJ ONE (11:59)
--- NOTE | 2019-03-27 12:03 | SIPON ---
Date/Time of Note Date/Time of Note DATE: 03/27/19 TIME: 12:02 Operative Report Preoperative Diagnosis Acute renal failure Postoperative Diagnosis same Operation/Procedure Performed L femoral trialysis catheter placement Surgeon see signature line assisted living associate none Anesthesia: other Estimated blood loss: minimal Transfusion Required none Specimen none Grafts/Implants none Complications none WALTER LOWERY MD Mar 27, 2019 12:03
[2019-03-27] MEDS: SOD FERRIC GLUC COMPLX 125 MG in SOD CHLORIDE 0.9% 100 ML IVPB SCH (14:01)
[2019-03-27] MEDS ORDERED: HEPARIN 1000 UNITS/ML 10 ML INJ CATHETER ONE (14:30)
[2019-03-27] MEDS: ALBUMIN HUMAN 25% 100 ML IV PRN ×2 (14:44→16:25)
--- NOTE | 2019-03-27 15:00 | CONS ---
DATE OF ADMISSION: 03/23/2019 DATE OF CONSULTATION: 03/27/2019 REASON FOR CONSULTATION: Shortness of breath. Thank you, Dr. Mtz, for this consultation. HISTORY OF PRESENT ILLNESS: This is a pleasant 68-year-old gentleman with multiple medical problems including acute renal failure, diabetes mellitus, essential hypertension, hyperlipidemia, BPH and per ipheral vascular disease status post revascularization yesterday. He this morning had a new onset sh ortness of breath, orthopnea, PND. Chest x-ray shows increased right-sided infiltrate versus pulmona ry edema. Transferred to the intensive care unit for further monitoring. Initially placed on noninv asive positive pressure ventilation; however, this was discontinued secondary to vomiting and aspirat ion risk. An emergent hemodialysis catheter has been placed, and the patient is now being initiated on hemodialysis. X-rays as stated demonstrated a right-sided infiltrate versus pulmonary edema. PAST MEDICAL HISTORY: Renal failure. MEDICATIONS: Per chart. ALLERGIES: NONE. SOCIAL HISTORY: Nonsmoker, no alcohol, no history of drug use. FAMILY HISTORY: Noncontributory. SYSTEMS REVIEW: A 12-point review of systems was negative other than that mentioned above. PHYSICAL EXAMINATION: GENERAL: Well-nourished, well-developed gentleman, awake, alert, oriented, talking in full and compl ete sentences. VITAL SIGNS: Currently afebrile, pulse is 90, blood pressure 150/60, O2 sat 96%, FIO2, nonrebreather . NECK: Supple. No JVD or lymphadenopathy. CARDIAC: S1, S2, no added sounds or murmurs. CHEST: Diminished air entry bilaterally with rales. ABDOMEN: Soft, nontender. No guarding or rebound. EXTREMITIES: No cyanosis, clubbing. NEUROLOGIC: No focal deficits. LABORATORY DATA: White count 11.1, hemoglobin 9.7, platelets of 484, BUN 57, creatinine 6.21. ABG: pH 7.23, pCO2 of 31, pO2 of 128, bicarbonate 15.8. IMPRESSION AND PLAN: 1. Acute renal failure with severe hyperkalemia and volume overload and likely etiology of his chron ic hypoxemia. 2. Peripheral vascular disease, status post revascularization. 3. Possible healthcare-associated pneumonia. The patient will require: 1. Continue antibiotics. 2. Emergent hemodialysis with volume removal and correction of hyperkalemia. 3. High flow O2. Pending correction of electrolyte abnormality and volume overload. 4. Close ICU monitoring as patient is at risk of intubation and mechanical ventilation. Dictated By: DMITRI PAIGE MD SV/NTS Conf#: [id number] DID#: [id number] CC: WALTER LOWERY MD; JOSE MTZ MD;*End*
[2019-03-27] MEDS ORDERED: VANCOMYCIN 1 GM 250 ML IVPB ONE (16:00)
--- NOTE | 2019-03-27 17:34 | PN ---
Date/Time of Note Date/Time of Note DATE: 03/27/19 TIME: 17:26 Assessment/Plan VTE Prophylaxis Risk score (from Nsg)>0 risk: 5 SCD applied (from Nsg): Yes Pharmacological prophylaxis: heparin Lines/Catheters IV Catheter Type (from Nrsg): Peripheral IV Urinary Cath still in place: Yes Reason Cath still needed: urinary retention Assessment/Plan Problems: (1) Acute respiratory failure with hypoxia Status: Acute Comment: Pt. w/ CXR yesterday showing R sided infiltrate. Doubtful that this could be PNA w/ pt. being covered w/ broad-spectrum abx and minimal risk factors. This am pt. w/ worsening sCr and sudden onset of SOB. O2 sat 80's% on room air. Ordered BiPAP and lasix. Pt. transferred to ICU. Pulmonary consult ordered. Will also order ID consult to r/o PNA or decide if abx regimen should be changed. Pt. now on HD. Likely that respiratory failure and CXR findings are flash pulmonary edema and should improve w/ HD. Will also involve cardiology to monitor cardiac/coronary status. (2) Acute on chronic renal failure Status: Acute Comment: Pt. now on HD to hopefully resolve current acute issue. Appreciate vascular surgery placing catheter and nephrology for HD. (3) Leukocytosis Status: Acute Comment: Improved but persists. ID consulted. Cont. vanco/zosyn for now. (4) Anemia Status: Chronic Comment: Improved following blood transfusion. Monitor for now. (5) Type 2 diabetes mellitus with diabetic peripheral angiopathy with gangrene Status: Acute Comment: Surgery for gangrene to be delayed due to respiratory failure. PVD stable following revascularization. Cont. linagliptin for BG which is well- controlled. (6) Hyperlipidemia Status: Chronic Comment: Cont. statin. (7) Essential (primary) hypertension Status: Chronic Comment: BP somewhat elevated but will recheck following HD. (8) Benign prostatic hyperplasia with urinary obstruction Status: Chronic Comment: FC in place. Monitor once it is removed. Result Diagram: 03/27/19 0758 03/27/19 0758 Results 24hrs Laboratory Tests Test 03/26/19 20:30 03/27/19 00:32 03/27/19 03:01 03/27/19 05:12 Bedside Glucose 156 127 130 130 Test 03/27/19 06:05 03/27/19 07:58 03/27/19 08:02 03/27/19 12:29 Lab Scanned BLOOD TRANSFUSI Report ON White Blood 11.0 H Count Red Blood Count 3.28 #L Hemoglobin 9.7 #L Hematocrit 29.0 #L Mean Corpuscular 88.4 Volume Mean Corpuscular 29.6 Hemoglobin Mean Corpuscular 33.4 Hemoglobin Mally nt Red Cell 14.6 H Distribution Width Platelet Count 484 H Mean Platelet 9.6 Volume Immature 2.100 H Granulocytes % Neutrophils % 81.6 H Lymphocytes % 6.7 L Monocytes % 7.8 Eosinophils % 1.3 Basophils % 0.5 Nucleated Red 0.3 H Blood Cells % Immature 0.230 H Granulocytes # Neutrophils # 9.0 H Lymphocytes # 0.7 L Monocytes # 0.9 Eosinophils # 0.1 Basophils # 0.1 Nucleated Red 0.0 Blood Cells # Sodium Level 137 Potassium Level 5.3 H Chloride Level 107 Carbon Dioxide 18 L Level Anion Gap 12 Blood Urea 57 H Nitrogen Creatinine 6.21 H Est Glomerular 9 L Filtrat Rate mL/min Glucose Level 134 Calcium Level 8.2 L Random 16.5 Vancomycin Level Hepatitis B NEGATIVE Surface Antigen Bedside Glucose 136 Blood Gas Blood arterial Specimen Source Arterial Blood 03/27/2019 12:54 Date Drawn :55 PM Arterial Blood 7.320 L pH (Temp corrected) Arterial Blood 31.4 L pCO2 (Temp correct) Arterial Blood 128.9 H pO2 (Temp corrected) Arterial Blood 15.8 L HCO3 Arterial Blood -9.1 L Base Excess Arterial Blood 98.0 Oxygen Saturatio n Lyle Test ACCEPTAB Arterial Blood Right Brachial Gas Puncture Site Arterial 0.3 Blood Carboxyhem oglobin Arterial Blood 0.2 Methemoglobin Blood Gas A-a O2 552.7 H Differential Oxyhemoglobin 97.5 Percent Blood Gas 37.0 Temperature Blood Gas 16.0 Respiration Rate Blood Gas Actual 28 Respiration Rate Blood Gas MASK - BIPAP Modality FiO2 100.0 Blood Gas 10 Pressure Support Blood Gas 15/5 IPAP/EPAP Ratio Blood Gas TM Notified Whom Blood Gas 03/27/2019 1:03: Notified Time 15 PM Test 03/27/19 14:15 03/27/19 14:32 Bedside Glucose 134 Troponin I 0.096 Subjective 24 Hr Interval Summary Constitutional: requiring O2; No no complaints, No improved Respiratory: pain, shortness of breath Cardiovascular: chest pain Gastrointestinal: nausea Genitourinary: no complaints Musculoskeletal: no complaints Neurologic: no complaints Exam/Review of Systems Exam Vitals VS - Last 72 Hours, by Label Date Temp Pulse Resp B/P (MAP) Pulse Ox O2 O2 Flow FiO2 Time Delivery Rate 03/27/19 76 16:20 03/27/19 75 16:05 03/27/19 78 16:00 03/27/19 76 15:50 03/27/19 81 15:35 03/27/19 77 15:20 03/27/19 76 15:05 03/27/19 79 14:53 03/27/19 79 27 164/74 92 Non 14:20 (104) Rebreather 03/27/19 88 12:00 03/27/19 90 96 100 11:35 03/27/19 86 11:05 03/27/19 98.5 89 18 168/78 90 11:04 (108) 03/27/19 98.3 78 18 122/61 98 08:14 (81) 03/27/19 Nasal 2.0 08:00 Cannula 03/27/19 98.1 77 20 137/61 93 03:43 (86) 03/26/19 98.3 76 18 128/66 92 23:32 (86) 03/26/19 Nasal 2.0 20:00 Cannula 03/26/19 98.0 79 20 121/60 90 19:29 (80) 03/26/19 2.0 17:48 03/26/19 97.6 82 18 128/63 100 Room Air 11:30 (84) 03/26/19 Nasal 2.0 11:20 Cannula 03/26/19 97.5 77 19 117/59 94 Nasal 07:40 (78) Cannula 03/26/19 97.6 72 17 122/62 93 04:00 (82) 03/26/19 2.0 02:32 03/26/19 98.0 60 17 114/60 94 00:00 (78) 03/25/19 2.0 23:00 03/25/19 98.2 69 17 103/59 94 20:00 (74) 03/25/19 Nasal 2.0 19:55 Cannula 03/25/19 97.7 73 16 93/54 (67) 92 15:32 03/25/19 98.0 77 16 119/58 95 11:26 (78) 03/25/19 98.7 87 16 124/59 93 07:45 (80) 03/25/19 Nasal 2.0 07:45 Cannula 03/25/19 4.0 07:23 03/25/19 97.9 83 17 102/59 99 04:00 (73) 03/25/19 Nasal 3.0 03:51 Cannula 03/25/19 98.2 98 17 147/66 95 00:25 (93) 03/24/19 4.0 23:22 03/24/19 90 10 133/79 91 Nasal 3.0 22:00 (97) Cannula 03/24/19 84 8 127/69 99 Nasal 3.0 21:00 (88) Cannula 03/24/19 Nasal 3.0 20:00 Cannula 03/24/19 76 20:00 03/24/19 98.1 77 11 123/66 97 Nasal 3.0 20:00 (85) Cannula 03/24/19 79 14 129/66 94 Nasal 3.0 19:00 (87) Cannula 03/24/19 80 18 131/57 97 Nasal 18:00 (81) Cannula Vital Signs Date Temp Pulse Resp B/P (MAP) Pulse Ox O2 O2 Flow FiO2 Time Delivery Rate 03/27/19 76 16:20 03/27/19 27 164/74 92 Non 14:20 (104) Rebreather 03/27/19 100 11:35 03/27/19 98.5 11:04 03/27/19 2.0 08:00 Intake and Output 03/26/19 03/26/19 03/27/19 1515:00 23:00 07:00 IntakeIntake Total 100 ml 700 ml 600 ml OutputOutput Total 250 ml BalanceBalance 100 ml 700 ml 350 ml Constitutional: alert, oriented, well developed, distress (anxious and clearly SOB) Psych: anxiety Respiratory: crackles/rales (diffuse B) Cardiovascular: regular rate and rhythm, nl pulses, edema (1+ RLE); No murmurs/extra sounds, No rub Gastrointestinal: soft, nl liver, spleen, non-tender, bowel sounds; No mass, No rebound or guarding Musculoskeletal: No nl extremities to inspection (RLE wrapped) Extremities: No cyanosis, No clubbing, No edema Neurological: CLASS B [employer] II-XII intact, nl mental status, nl speech, nl strength Additional Comments Bedside Glucose - 72 Hours Test 03/24/19 20:22 03/25/19 01:27 03/25/19 05:40 03/25/19 07:31 Bedside 169 158 134 119 Glucose mg/dL (70-220) mg/dL (70-220) mg/dL (70-220) mg/dL (70-220) Test 03/25/19 12:04 03/25/19 17:09 03/25/19 21:15 03/26/19 01:04 Bedside 139 117 135 120 Glucose mg/dL (70-220) mg/dL (70-220) mg/dL (70-220) mg/dL (70-220) Test 03/26/19 06:29 03/26/19 07:47 03/26/19 12:03 03/26/19 17:19 Bedside 114 118 118 122 Glucose mg/dL (70-220) mg/dL (70-220) mg/dL (70-220) mg/dL (70-220) Test 03/26/19 20:30 03/27/19 00:32 03/27/19 03:01 03/27/19 05:12 Bedside 156 127 130 130 Glucose mg/dL (70-220) mg/dL (70-220) mg/dL (70-220) mg/dL (70-220) Test 03/27/19 08:02 03/27/19 14:15 Bedside 136 134 Glucose mg/dL (70-220) mg/dL (70-220) Results Results 24hrs Laboratory Tests Test 03/26/19 20:30 03/27/19 00:32 03/27/19 03:01 03/27/19 05:12 Bedside Glucose 156 127 130 130 Test 03/27/19 06:05 03/27/19 07:58 03/27/19 08:02 03/27/19 12:29 Lab Scanned BLOOD TRANSFUSI Report ON White Blood 11.0 H Count Red Blood Count 3.28 #L Hemoglobin 9.7 #L Hematocrit 29.0 #L Mean Corpuscular 88.4 Volume Mean Corpuscular 29.6 Hemoglobin Mean Corpuscular 33.4 Hemoglobin Mally nt Red Cell 14.6 H Distribution Width Platelet Count 484 H Mean Platelet 9.6 Volume Immature 2.100 H Granulocytes % Neutrophils % 81.6 H Lymphocytes % 6.7 L Monocytes % 7.8 Eosinophils % 1.3 Basophils % 0.5 Nucleated Red 0.3 H Blood Cells % Immature 0.230 H Granulocytes # Neutrophils # 9.0 H Lymphocytes # 0.7 L Monocytes # 0.9 Eosinophils # 0.1 Basophils # 0.1 Nucleated Red 0.0 Blood Cells # Sodium Level 137 Potassium Level 5.3 H Chloride Level 107 Carbon Dioxide 18 L Level Anion Gap 12 Blood Urea 57 H Nitrogen Creatinine 6.21 H Est Glomerular 9 L Filtrat Rate mL/min Glucose Level 134 Calcium Level 8.2 L Random 16.5 Vancomycin Level Hepatitis B NEGATIVE Surface Antigen Bedside Glucose 136 Blood Gas Blood arterial Specimen Source Arterial Blood 03/27/2019 12:54 Date Drawn :55 PM Arterial Blood 7.320 L pH (Temp corrected) Arterial Blood 31.4 L pCO2 (Temp correct) Arterial Blood 128.9 H pO2 (Temp corrected) Arterial Blood 15.8 L HCO3 Arterial Blood -9.1 L Base Excess Arterial Blood 98.0 Oxygen Saturatio n Lyle Test ACCEPTAB Arterial Blood Right Brachial Gas Puncture Site Arterial 0.3 Blood Carboxyhem oglobin Arterial Blood 0.2 Methemoglobin Blood Gas A-a O2 552.7 H Differential Oxyhemoglobin 97.5 Percent Blood Gas 37.0 Temperature Blood Gas 16.0 Respiration Rate Blood Gas Actual 28 Respiration Rate Blood Gas MASK - BIPAP Modality FiO2 100.0 Blood Gas 10 Pressure Support Blood Gas 15/5 IPAP/EPAP Ratio Blood Gas TM Notified Whom Blood Gas 03/27/2019 1:03: Notified Time 15 PM Test 03/27/19 14:15 03/27/19 14:32 Bedside Glucose 134 Troponin I 0.096 Medications Medication Current Medications Albuterol (Proventil 0.083% (Neb)) 2.5 mg ICU RECOVERY PRN HHN .WHEEZING; Start 03/23/19 at 11:30 Aspirin (Aspirin) 325 mg DAILY PO Last administered on 03/27/19at 09:30; Admin Dose 325 MG; Start 03/24/19 at 09:00 Amlodipine Besylate (Norvasc) 5 mg DAILY PO Last administered on 03/27/19at 08:41; Admin Dose 5 MG; Start 03/24/19 at 09:00 Atorvastatin Calcium (Lipitor) 40 mg QHS PO Last administered on 03/26/19 20:28; Admin Dose 40 MG; Start 03/23/19 at 21:00 Carvedilol (Coreg) 12.5 mg BID PO Last administered on 03/27/19 08:41; Admin Dose 12.5 MG; Start 03/23/19 at 21:00 Linagliptin (Tradjenta) 5 mg DAILY PO Last administered on 03/27/19 08:42; Admin Dose 5 MG; Start 03/24/19 at 09:00 Metoclopramide HCl (Reglan) 5 mg AC MEALS PO Last administered on 03/26/19 17:07; Admin Dose 5 MG; Start 03/23/19 at 17:05 Ranitidine HCl (Zantac) 150 mg DAILY PO Last administered on 03/27/19 09:30; Admin Dose 150 MG; Start 03/24/19 at 09:00 Ondansetron HCl (Zofran Inj) 4 mg Q4H PRN IV NAUSEA AND/OR VOMITING Last administered on 03/27/19 14:10; Admin Dose 4 MG; Start 03/23/19 at 18:00 Metoclopramide HCl (Reglan) 10 mg Q6H PRN IV NAUSEA Last administered on 03/27/19 08:40; Admin Dose 10 MG; Start 03/23/19 at 18:00 Diagnostic Test (Pha) (Accu-Chek) 1 ea Q4 XX Last administered on 03/27/19 13:00; Admin Dose 1 EA; Start 03/23/19 at 21:00 Insulin Aspart (Novolog Insulin Pen) NOVOLOG *MILD* ALGORITHM WITH MEALS BEDTIME SC Last administered on 03/24/19 17:11; Admin Dose 1 UNIT; Start 03/23/19 at 21:00 Hydromorphone HCl (Dilaudid) 2 mg Q4H PRN IV SEVERE PAIN LEVEL 7-10 Last administered on 03/27/19 14:52; Admin Dose 2 MG; Start 03/23/19 at 18:00 Miscellaneous Information 1 ea NOTE XX ; Start 03/23/19 at 18:30 Glucose (Glutose) 15 gm Q15M PRN PO DECREASED GLUCOSE; Start 03/23/19 at 18:30 Glucose (Glutose) 22.5 gm Q15M PRN PO DECREASED GLUCOSE; Start 03/23/19 at 18:30 Dextrose (D50w Syringe) 25 ml Q15M PRN IV DECREASED GLUCOSE; Start 03/23/19 at 18:30 Dextrose (D50w Syringe) 50 ml Q15M PRN IV DECREASED GLUCOSE; Start 03/23/19 at 18:30 Glucagon (Glucagen) 1 mg Q15M PRN IM DECREASED GLUCOSE; Start 03/23/19 at 18:30 Glucose (Glutose) 15 gm Q15M PRN BUCCAL DECREASED GLUCOSE; Start 03/23/19 at 18:30 Epoetin Joseph-epbx (Retacrit (Esrd)) 10,000 unit TuThSa@1700 SC Last administered on 03/26/19at 17:07; Admin Dose 10,000 UNIT; Start 03/24/19 at 17:00 Ferric Sodium Gluconate Complex 125 mg/Sodium Chloride 110 ml @ 110 mls/hr DAILY@1300 IVPB Last administered on 03/27/19at 14:01; Admin Dose 110 MLS/HR; Start 03/24/19 at 13:00; Stop 03/28/19 at 13:59 Acetaminophen/ Hydrocodone Bitart ([place] (5/325)) 1 tab Q6H PRN PO .MOD PAIN 4- 6 Last administered on 03/25/19at 14:33; Admin Dose 1 TAB; Start 03/24/19 at 22:30 Vancomycin HCl (Vanco Iv Per Pharmacy) VANCOMYCIN PER PHARMACY PER PROTOCOL XX ; Start 03/25/19 at 14:30 Piperacillin Sod/ Tazobactam Sod 50 ml @ 100 mls/hr Q8 IVPB Last administered on 03/26/19at 14:14; Admin Dose 100 MLS/HR; Start 03/25/19 at 15:00 Calcium Acetate (Phoslo) 667 mg WITH MEALS PO Last administered on 03/26/19at 17:07; Admin Dose 667 MG; Start 03/26/19 at 12:00 Albumin Human 100 ml @ 100 mls/hr WITH DIALYSIS PRN IV SBP <90 DURING DIALYSIS Last administered on 03/27/19at 16:25; Admin Dose 100 MLS/HR; Start 03/27/19 at 12:00 Vancomycin HCl 250 ml @ 125 mls/hr ONCE ONCE IVPB ; Start 03/27/19 at 16:00; Stop 03/27/19 at 17:59 JOSE PARRY MD Mar 27, 2019 17:34
[2019-03-27] MEDS: ATORVASTATIN 40 MG TAB PO SCH (21:18)
[2019-03-27] MEDS: ALBUTEROL/IPRATROPIUM (NEB) 3 ML AMP HHN SCH (21:23)
[2019-03-28] VITALS (38 sets, daily range): BP systolic 112–173; BP diastolic 51–83; PULSE 73–93; RESP 12–38
[2019-03-28] MEDS: ACCU-CHEK XX SCH ×6 (00:45→20:56)
[2019-03-28] MEDS: HYDROmorphONE 2 MG/ML SYG IV PRN ×2 (03:28→08:21)
[2019-03-28] MEDS: PIPER-TAZO 2.25 GM (PMX) 50 ML IVPB SCH ×3 (05:54→21:00)
[2019-03-28] MEDS: INSULIN ASPART [NOVOLOG] 3 ML PEN SC SCH ×4 (07:35→20:55)
[2019-03-28] MEDS: METOCLOPRAMIDE 5 MG TAB PO SCH ×3 (07:49→17:05)
[2019-03-28] MEDS: CALCIUM ACETATE 667 MG CAP PO SCH ×3 (07:49→17:35)
[2019-03-28] MEDS: ONDANSETRON 4 MG INJ IV PRN ×2 (08:20→20:28)
[2019-03-28] MEDS: ALBUTEROL/IPRATROPIUM (NEB) 3 ML AMP HHN SCH ×4 (08:48→20:21)
--- NOTE | 2019-03-28 08:59 | CONS ---
Assessment/Plan Assessment/Plan Problems: (1) Essential (primary) hypertension Status: Chronic Comment: controlled (2) Peripheral vascular disease of lower extremity Status: Chronic Comment: f/b Dr Monaco... s/p Rt FPBPG (3) Leukocytosis Status: Acute Comment: a bit worse.. on Vanco/Zosyn (4) Acute on chronic renal failure Status: Acute Comment: s/p HD w good UF yesterday.. about to start this am, with planned on further UF.. no CXR this am seen Consultation Date/Type/Reason Admit Date/Time Mar 23, 2019 at 06:13 Type of Consult Nephrology Date/Time of Note DATE: 03/28/19 TIME: 08:55 Hx of Present Illness On BiPap w good oxygenation.. about to start HD Exam/Review of Systems Vital Signs Vitals Vital Signs Date Temp Pulse Resp B/P (MAP) Pulse Ox O2 O2 Flow FiO2 Time Delivery Rate 03/28/19 75 97 70 08:48 03/28/19 Bag Valve 08:00 Mask 03/28/19 98.2 20 145/69 06:00 (94) 03/27/19 6.0 21:33 Intake and Output 03/27/19 03/27/19 03/28/19 1515:00 23:00 07:00 IntakeIntake Total 50 ml 50 ml 50 ml OutputOutput Total 350 ml 3990 ml 100 ml BalanceBalance -300 ml -3940 ml -50 ml Exam Constitutional: alert Eyes: nl conjunctiva Neck: supple Respiratory: clear to auscultation Cardiovascular: regular rate and rhythm Gastrointestinal: soft, nl liver, spleen Extremities: edema (1+ LLE...Rt w bandages in place) Labs Result Diagram: 03/28/19 0454 03/28/19 0454 Results 24hrs Laboratory Tests Test 03/27/19 12:29 03/27/19 14:15 03/27/19 14:32 03/27/19 18:30 Blood Gas Blood arterial Specimen Source Arterial Blood 03/27/2019 12:54 Date Drawn :55 PM Arterial Blood 7.320 L pH (Temp corrected ) Arterial Blood 31.4 L pCO2 (Temp correct) Arterial Blood 128.9 H pO2 (Temp corrected ) Arterial Blood 15.8 L HCO3 Arterial Blood -9.1 L Base Excess Arterial Blood 98.0 Oxygen Saturati on Lyle Test ACCEPTAB Arterial Blood Right Brachial Gas Puncture Site Arterial 0.3 Blood Carboxyhe moglobin Arterial Blood 0.2 Methemoglobin Blood Gas A-a 552.7 H O2 Differential Oxyhemoglobin 97.5 Percent Blood Gas 37.0 Temperature Blood Gas 16.0 Respiration Rate Blood Gas 28 Actual Respiration Rat e Blood Gas MASK - BIPAP Modality FiO2 100.0 Blood Gas 10 Pressure Support Blood Gas 28/01 IPAP/EPAP Ratio Blood Gas TM Notified Whom Blood Gas 03/27/2019 1:03: Notified Time 15 PM Bedside Glucose 134 Troponin I 0.096 0.097 Test 03/27/19 21:30 03/27/19 23:00 03/28/19 00:38 03/28/19 00:39 Blood Gas Blood arterial Blood arterial Specimen Source Arterial Blood 03/27/2019 9:15: 03/27/2019 11:19 Date Drawn 32 PM :53 PM Arterial Blood 7.322 L 7.303 L pH (Temp corrected ) Arterial Blood 35.0 34.3 L pCO2 (Temp correct) Arterial Blood 66.8 L 109.3 H pO2 (Temp corrected ) Arterial Blood 17.7 L 16.6 L HCO3 Arterial Blood -7.6 L -8.9 L Base Excess Arterial Blood 91.5 L 97.3 Oxygen Saturati on Lyle Test ACCEPTAB ACCEPTAB Arterial Blood Right Radial Right Radial Gas Puncture Site Arterial 0.3 0.3 Blood Carboxyhe moglobin Arterial Blood 0.1 0.1 Methemoglobin Blood Gas A-a 611.2 H 569.4 H O2 Differential Oxyhemoglobin 91.1 L 96.9 Percent Blood Gas 37.0 37.0 Temperature Blood Gas 34 28 Actual Respiration Rat e Blood Gas HFNC MASK - BIPAP Modality FiO2 100.0 100.0 Blood Gas KB MANUEL DURHAM Notified Whom Blood Gas 03/27/2019 9:26: 03/27/2019 11:31 Notified Time 57 PM :24 PM Bedside Glucose 109 118 Blood Gas 16.0 Respiration Rate Blood Gas 28/01 IPAP/EPAP Ratio Creatine Kinase 100 Creatine Kinase 1.8 Index Creatinine 1.78 Kinase MB (Mass) Troponin I 0.099 Test 03/28/19 04:54 03/28/19 05:43 03/28/19 07:00 03/28/19 08:08 White Blood 15.9 #H Count Red Blood Count 3.28 L Hemoglobin 9.6 L Hematocrit 30.0 L Mean 91.5 Corpuscular Volume Mean 29.3 Corpuscular Hemoglobin Mean 32.0 Corpuscular Hemoglobin Conc ent Red Cell 14.8 H Distribution Width Platelet Count 461 H Mean Platelet 9.6 Volume Immature 1.300 H Granulocytes % Neutrophils % 91.0 H Lymphocytes % 2.4 L Monocytes % 5.0 Eosinophils % 0.0 Basophils % 0.3 Nucleated Red 0.3 H Blood Cells % Immature 0.210 H Granulocytes # Neutrophils # 14.4 H Lymphocytes # 0.4 L Monocytes # 0.8 Eosinophils # 0.0 Basophils # 0.0 Nucleated Red 0.0 Blood Cells # Sodium Level 141 Potassium Level 5.0 Chloride Level 105 Carbon Dioxide 17 L Level Anion Gap 19 #H Blood Urea 50 H Nitrogen Creatinine 5.84 H Est Glomerular 10 L Filtrat Rate mL/min Glucose Level 128 Calcium Level 9.0 Phosphorus 7.9 H Level Creatine Kinase 97 Creatine Kinase 2.5 Index Creatinine 2.40 Kinase MB (Mass) Troponin I 0.119 Bedside Glucose 128 126 Blood Gas Blood Specimen arterial Source Arterial Blood 03/28/2019 8:30 Date Drawn :06 AM Arterial Blood 7.286 *L pH (Temp corrected ) Arterial Blood 32.4 L pCO2 (Temp correct) Arterial Blood 82.5 pO2 (Temp corrected ) Arterial Blood 15.1 L HCO3 Arterial Blood -10.5 L Base Excess Arterial Blood 95.2 Oxygen Saturati on Lyle Test ACCEPTAB Arterial Blood Right Radial Gas Puncture Site Arterial 0.3 Blood Carboxyhe moglobin Arterial Blood 0.2 Methemoglobin Blood Gas A-a 526.0 H O2 Differential Oxyhemoglobin 94.7 Percent Blood Gas 37.0 Temperature Blood Gas 16.0 Respiration Rate Blood Gas 24 Actual Respiration Rat e Blood Gas MASK - BIPAP Modality FiO2 90.0 Blood Gas 10 Pressure Support Blood Gas 15/5 IPAP/EPAP Ratio Blood Gas L XENIA HO Critical Value Read Back Blood Gas DT Notified Whom Blood Gas 03/28/2019 8:51 Notified Time :35 AM Medications Medications Current Medications Albuterol (Proventil 0.083% (Neb)) 2.5 mg ICU RECOVERY PRN HHN .WHEEZING; Start 03/23/19 at 11:30 Aspirin (Aspirin) 325 mg DAILY PO Last administered on 03/27/19 09:30; Admin Dose 325 MG; Start 03/24/19 at 09:00 Amlodipine Besylate (Norvasc) 5 mg DAILY PO Last administered on 03/27/19 08:41; Admin Dose 5 MG; Start 03/24/19 at 09:00 Atorvastatin Calcium (Lipitor) 40 mg QHS PO Last administered on 03/27/19 21:18; Admin Dose 40 MG; Start 03/23/19 at 21:00 Carvedilol (Coreg) 12.5 mg BID PO Last administered on 03/27/19 21:19; Admin Dose 12.5 MG; Start 03/23/19 at 21:00 Linagliptin (Tradjenta) 5 mg DAILY PO Last administered on 03/27/19 08:42; Admin Dose 5 MG; Start 03/24/19 at 09:00 Metoclopramide HCl (Reglan) 5 mg AC MEALS PO Last administered on 03/28/19 07:49; Admin Dose 5 MG; Start 03/23/19 at 17:05 Ranitidine HCl (Zantac) 150 mg DAILY PO Last administered on 03/27/19 09:30; Admin Dose 150 MG; Start 03/24/19 at 09:00 Ondansetron HCl (Zofran Inj) 4 mg Q4H PRN IV NAUSEA AND/OR VOMITING Last administered on 03/28/19 08:20; Admin Dose 4 MG; Start 03/23/19 at 18:00 Metoclopramide HCl (Reglan) 10 mg Q6H PRN IV NAUSEA Last administered on 03/27/19 08:40; Admin Dose 10 MG; Start 03/23/19 at 18:00 Diagnostic Test (Pha) (Accu-Chek) 1 ea Q4 XX Last administered on 03/27/19 17:00; Admin Dose 1 EA; Start 03/23/19 at 21:00 Insulin Aspart (Novolog Insulin Pen) NOVOLOG *MILD* ALGORITHM WITH MEALS BEDTIME SC Last administered on 03/24/19 17:11; Admin Dose 1 UNIT; Start 03/23 at 21:00 Hydromorphone HCl (Dilaudid) 2 mg Q4H PRN IV SEVERE PAIN LEVEL 7-10 Last administered on 7/13/19at 08:21; Admin Dose 2 MG; Start 03/23/19 at 18:00 Miscellaneous Information 1 ea NOTE XX ; Start 03/23/19 at 18:30 Glucose (Glutose) 15 gm Q15M PRN PO DECREASED GLUCOSE; Start 03/23/19 at 18:30 Glucose (Glutose) 22.5 gm Q15M PRN PO DECREASED GLUCOSE; Start 03/23/19 at 18:30 Dextrose (D50w Syringe) 25 ml Q15M PRN IV DECREASED GLUCOSE; Start 03/23/19 at 18:30 Dextrose (D50w Syringe) 50 ml Q15M PRN IV DECREASED GLUCOSE; Start 03/23/19 at 18:30 Glucagon (Glucagen) 1 mg Q15M PRN IM DECREASED GLUCOSE; Start 03/23/19 at 18:30 Glucose (Glutose) 15 gm Q15M PRN BUCCAL DECREASED GLUCOSE; Start 03/23/19 at 18:30 Epoetin Joseph-epbx (Retacrit (Esrd)) 10,000 unit TuThSa@1700 SC Last administered on 03/26/19at 17:07; Admin Dose 10,000 UNIT; Start 03/24/19 at 17:00 Ferric Sodium Gluconate Complex 125 mg/Sodium Chloride 110 ml @ 110 mls/hr DAILY@1300 IVPB Last administered on 03/27/19at 14:01; Admin Dose 110 MLS/HR; Start 03/24/19 at 13:00; Stop 03/28/19 at 13:59 Acetaminophen/ Hydrocodone Bitart ([place] (5/325)) 1 tab Q6H PRN PO .MOD PAIN 4- 6 Last administered on 03/25/19at 14:33; Admin Dose 1 TAB; Start 03/24/19 at 22:30 Vancomycin HCl (Vanco Iv Per Pharmacy) VANCOMYCIN PER PHARMACY PER PROTOCOL XX ; Start 03/25/19 at 14:30 Piperacillin Sod/ Tazobactam Sod 50 ml @ 100 mls/hr Q8 IVPB Last administered on 03/28/19at 05:54; Admin Dose 100 MLS/HR; Start 03/25/19 at 15:00 Calcium Acetate (Phoslo) 667 mg WITH MEALS PO Last administered on 03/28/19at 07:49; Admin Dose 667 MG; Start 03/26/19 at 12:00 Albumin Human 100 ml @ 100 mls/hr WITH DIALYSIS PRN IV SBP <90 DURING DIALYSIS Last administered on 03/27/19at 16:25; Admin Dose 100 MLS/HR; Start 03/27/19 at 12:00 Albuterol/ Ipratropium (Duoneb) 3 ml Q4HWA RESP THERAPY HHN Last administered on 03/28/19at 08:48; Admin Dose 3 ML; Start 03/27/19 at 21:00 RADHA BEAN MD Mar 28, 2019 08:59
--- NOTE | 2019-03-28 09:51 | QN ---
Documentation Comment On HD and BIPAP now, O2 coming down, feels better and hungry. Breathing co mfortably. AFVSS UO marginal R foot warm and hyperemic, 2+ graft pulse, toes are demarcated well, no odor or drainage - R foot well perfused, graft patent, paint the toes with betadine daily - per team - R TMA when stable - Dr. Afua LOWERY,WALTER Busby MD Mar 28, 2019 09:51
[2019-03-28] MEDS: HEPARIN 1000 UNITS/ML 10 ML INJ CATHETER SCH (12:00)
--- NOTE | 2019-03-28 12:03 | CONS ---
Assessment/Plan Assessment/Plan Assessment/Plan (Daily) Assessment 1) SOB 2) No dynamic EKG changes 3) Mild troponin increase which may be of nonspecific nature 4) ESRD 5) PVD 6) HTN 7) DM 8) HLP Plan: ASA Statin HD postop care consideration of cardiac blanchard eventually Consultation Date/Type/Reason Admit Date/Time Mar 23, 2019 at 06:13 Type of Consult Cardiology Date/Time of Note DATE: 03/28/19 TIME: 11:59 Hx of Present Illness sudden sob yesterday, now in ICU, has HD, no chest pain Constitutional: no complaints Respiratory: shortness of breath Cardiovascular: no complaints Musculoskeletal: no complaints Skin: no complaints Neurologic: no complaints Past Medical History Medical History: diabetes, high cholesterol, hypertension, renal disease Home Meds Active Scripts Amoxicillin/Potassium Clav (Amox-Clav 875-125 mg Tablet) 875-125 mg Tab, 1 TAB PO BID for 5 Days, #10 TAB 0 Refills Prov:JOSE PARRY MD 03/18/19 Linagliptin (TRADJENTA) 5 Mg Tablet, 5 MG PO DAILY for 30 Days, #30 TAB 3 Refills Prov:JOSE PARRY MD 03/18/19 Hydrocodone Bit-Acetaminophen (Hydrocodone Bit-APAP) 5-325MG Tablet, 1 TAB PO Q6H PRN for .MOD PAIN 4-6 for 5 Days, #20 TAB 0 Refills Prov:JOSE PARRY MD 03/18/19 Ferrous Sulfate* (Ferrous Sulfate*) 325 Mg Tabec, 325 MG PO TID for 30 Days, #90 TAB 2 Refills Prov:JOSE PARRY MD 03/18/19 Ranitidine Hcl* (Ranitidine Hcl*) 150 Mg Tablet, 150 MG PO DAILY for 30 Days, #30 TAB 5 Refills Prov:JOSE PARRY MD 02/02/19 Metoclopramide Hcl* (Metoclopramide Hcl*) 5 Mg Tablet, 5 MG PO AC MEALS for 30 Days, #90 TAB 5 Refills Prov:JOSE PARRY MD 02/02/19 Carvedilol* (Carvedilol*) 12.5 Mg Tablet, 12.5 MG PO BID for 30 Days, #60 TAB 5 Refills Prov:JOSE PARRY MD 02/02/19 Cilostazol* (Cilostazol*) 100 Mg Tablet, 50 MG PO BID for 30 Days, #30 TAB 5 R efills Prov:JOSE PARRY MD 02/02/19 Reported Medications Glycopyrrolate* (Glycopyrrolate*) 1 Mg Tablet, 1 MG PO BID, TAB 01/29/19 Amlodipine Besylate* (Norvasc*) 5 Mg Tablet, 5 MG PO DAILY, TAB 01/29/19 Ergocalciferol (Vitamin D2) (VITAMIN D2) 50,000 Unit Capsule, 48814 UNIT PO Q FRI, CAP 01/29/19 Atorvastatin* (Atorvastatin*) 40 Mg Tablet, 40 MG PO QHS, #30 TAB 01/29/19 Medications Current Medications Albuterol (Proventil 0.083% (Neb)) 2.5 mg ICU RECOVERY PRN HHN .WHEEZING; Start 03/23/19 at 11:30 Aspirin (Aspirin) 325 mg DAILY PO Last administered on 03/27/19 09:30; Admin Dose 325 MG; Start 03/24/19 at 09:00 Amlodipine Besylate (Norvasc) 5 mg DAILY PO Last administered on 03/27/19 08:41; Admin Dose 5 MG; Start 03/24/19 at 09:00 Atorvastatin Calcium (Lipitor) 40 mg QHS PO Last administered on 03/27/19 21:18; Admin Dose 40 MG; Start 03/23/19 at 21:00 Carvedilol (Coreg) 12.5 mg BID PO Last administered on 03/27/19 21:19; Admin Dose 12.5 MG; Start 03/23/19 at 21:00 Linagliptin (Tradjenta) 5 mg DAILY PO Last administered on 03/27/19 08:42; Admin Dose 5 MG; Start 03/24/19 at 09:00 Metoclopramide HCl (Reglan) 5 mg AC MEALS PO Last administered on 03/28/19 07:49; Admin Dose 5 MG; Start 03/23/19 at 17:05 Ranitidine HCl (Zantac) 150 mg DAILY PO Last administered on 03/27/19 09:30; Admin Dose 150 MG; Start 03/24/19 at 09:00 Ondansetron HCl (Zofran Inj) 4 mg Q4H PRN IV NAUSEA AND/OR VOMITING Last administered on 03/28/19 08:20; Admin Dose 4 MG; Start 03/23/19 at 18:00 Metoclopramide HCl (Reglan) 10 mg Q6H PRN IV NAUSEA Last administered on 03/27/19 08:40; Admin Dose 10 MG; Start 03/23/19 at 18:00 Diagnostic Test (Pha) (Accu-Chek) 1 ea Q4 XX Last administered on 03/28/19 09:22; Admin Dose 1 EA; Start 03/23/19 at 21:00 Insulin Aspart (Novolog Insulin Pen) NOVOLOG *MILD* ALGORITHM WITH MEALS BEDTIME SC Last administered on 03/24/19 17:11; Admin Dose 1 UNIT; Start 03/23/19 at 21:00 Hydromorphone HCl (Dilaudid) 2 mg Q4H PRN IV SEVERE PAIN LEVEL 7-10 Last administered on 03/28/19 08:21; Admin Dose 2 MG; Start 03/23/19 at 18:00 Miscellaneous Information 1 ea NOTE XX ; Start 03/23/19 at 18:30 Glucose (Glutose) 15 gm Q15M PRN PO DECREASED GLUCOSE; Start 03/23/19 at 18:30 Glucose (Glutose) 22.5 gm Q15M PRN PO DECREASED GLUCOSE; Start 03/23/19 at 18:30 Dextrose (D50w Syringe) 25 ml Q15M PRN IV DECREASED GLUCOSE; Start 03/23/19 at 18:30 Dextrose (D50w Syringe) 50 ml Q15M PRN IV DECREASED GLUCOSE; Start 03/23/19 at 18:30 Glucagon (Glucagen) 1 mg Q15M PRN IM DECREASED GLUCOSE; Start 03/23/19 at 18:30 Glucose (Glutose) 15 gm Q15M PRN BUCCAL DECREASED GLUCOSE; Start 03/23/19 at 18:30 Epoetin Joseph-epbx (Retacrit (Esrd)) 10,000 unit TuThSa@1700 SC Last administered on 03/26/19 17:07; Admin Dose 10,000 UNIT; Start 03/24/19 at 17:00 Ferric Sodium Gluconate Complex 125 mg/Sodium Chloride 110 ml @ 110 mls/hr DAILY@1300 IVPB Last administered on 03/27/19 14:01; Admin Dose 110 MLS/HR; Start 03/24/19 at 13:00; Stop 03/28/19 at 13:59 Acetaminophen/ Hydrocodone Bitart ([place] (5/325)) 1 tab Q6H PRN PO .MOD PAIN 4- 6 Last administered on 03/25/19at 14:33; Admin Dose 1 TAB; Start 03/24/19 at 22:30 Vancomycin HCl (Vanco Iv Per Pharmacy) VANCOMYCIN PER PHARMACY PER PROTOCOL XX ; Start 03/25/19 at 14:30 Piperacillin Sod/ Tazobactam Sod 50 ml @ 100 mls/hr Q8 IVPB Last administered on 03/28/19at 05:54; Admin Dose 100 MLS/HR; Start 03/25/19 at 15:00 Calcium Acetate (Phoslo) 667 mg WITH MEALS PO Last administered on 03/28/19at 07:49; Admin Dose 667 MG; Start 03/26/19 at 12:00 Albumin Human 100 ml @ 100 mls/hr WITH DIALYSIS PRN IV SBP <90 DURING DIALYSIS Last administered on 03/27/19at 16:25; Admin Dose 100 MLS/HR; Start 03/27/19 at 12:00 Albuterol/ Ipratropium (Duoneb) 3 ml Q4HWA RESP THERAPY HHN Last administered on 03/28/19 08:48; Admin Dose 3 ML; Start 03/27/19 at 21:00 Heparin Sodium (Porcine) (Heparin (1000 Units/ml)) 3,000 unit AFTER DIALYSIS CATHETER ; Start 03/28/19 at 09:30 Allergies: Coded Allergies: No Known Allergy (Unverified , 03/23/19) Past Surgical History Past Surgical Hx: other (toe amp, R forearm ORIF) Family History Significant Family History: hypertension Social History 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 ago) Drug Use: none Exam/Review of Systems Vital Signs Vitals Vital Signs Date Temp Pulse Resp B/P (MAP) Pulse Ox O2 O2 Flow FiO2 Time Delivery Rate 03/28/19 74 96 60 09:52 03/28/19 18 132/65 BIPAP 09:00 (87) 03/28/19 97.6 08:00 03/27/19 6.0 21:33 Intake and Output 03/27/19 03/27/19 03/28/19 1515:00 23:00 07:00 IntakeIntake Total 50 ml 50 ml 50 ml OutputOutput Total 350 ml 3990 ml 100 ml BalanceBalance -300 ml -3940 ml -50 ml Exam Constitutional: frail Head: normocephalic, atraumatic Neck: jvd Respiratory: clear to auscultation Cardiovascular: regular rate and rhythm Gastrointestinal: soft Musculoskeletal: muscle weakness Extremities: normal pulses Labs Result Diagram: 03/28/19 0454 03/28/19 0454 Results 24hrs Laboratory Tests Test 03/27/19 12:29 03/27/19 14:15 03/27/19 14:32 03/27/19 18:30 Blood Gas Blood arterial Specimen Source Arterial Blood 03/27/2019 12:54 Date Drawn :55 PM Arterial Blood 7.320 L pH (Temp corrected ) Arterial Blood 31.4 L pCO2 (Temp correct) Arterial Blood 128.9 H pO2 (Temp corrected ) Arterial Blood 15.8 L HCO3 Arterial Blood -9.1 L Base Excess Arterial Blood 98.0 Oxygen Saturati on Lyle Test ACCEPTAB Arterial Blood Right Brachial Gas Puncture Site Arterial 0.3 Blood Carboxyhe moglobin Arterial Blood 0.2 Methemoglobin Blood Gas A-a 552.7 H O2 Differential Oxyhemoglobin 97.5 Percent Blood Gas 37.0 Temperature Blood Gas 16.0 Respiration Rate Blood Gas 28 Actual Respiration Rat e Blood Gas MASK - BIPAP Modality FiO2 100.0 Blood Gas 10 Pressure Support Blood Gas 15/5 IPAP/EPAP Ratio Blood Gas TM Notified Whom Blood Gas 03/27/2019 1:03: Notified Time 15 PM Bedside Glucose 134 Troponin I 0.096 0.097 Test 03/27/19 21:30 03/27/19 23:00 03/28/19 00:38 03/28/19 00:39 Blood Gas Blood arterial Blood arterial Specimen Source Arterial Blood 03/27/2019 9:15: 03/27/2019 11:19 Date Drawn 32 PM :53 PM Arterial Blood 7.322 L 7.303 L pH (Temp corrected ) Arterial Blood 35.0 34.3 L pCO2 (Temp correct) Arterial Blood 66.8 L 109.3 H pO2 (Temp corrected ) Arterial Blood 17.7 L 16.6 L HCO3 Arterial Blood -7.6 L -8.9 L Base Excess Arterial Blood 91.5 L 97.3 Oxygen Saturati on Lyle Test ACCEPTAB ACCEPTAB Arterial Blood Right Radial Right Radial Gas Puncture Site Arterial 0.3 0.3 Blood Carboxyhe moglobin Arterial Blood 0.1 0.1 Methemoglobin Blood Gas A-a 611.2 H 569.4 H O2 Differential Oxyhemoglobin 91.1 L 96.9 Percent Blood Gas 37.0 37.0 Temperature Blood Gas 34 28 Actual Respiration Rat e Blood Gas HFNC MASK - BIPAP Modality FiO2 100.0 100.0 Blood Gas BRENDAN DURHAM RCP Notified Whom Blood Gas 03/27/2019 9:26: 03/27/2019 11:31 Notified Time 57 PM :24 PM Bedside Glucose 109 118 Blood Gas 16.0 Respiration Rate Blood Gas 15/5 IPAP/EPAP Ratio Creatine Kinase 100 Creatine Kinase 1.8 Index Creatinine 1.78 Kinase MB (Mass) Troponin I 0.099 Test 03/28/19 04:54 03/28/19 05:43 03/28/19 07:00 03/28/19 08:08 White Blood 15.9 #H Count Red Blood Count 3.28 L Hemoglobin 9.6 L Hematocrit 30.0 L Mean 91.5 Corpuscular Volume Mean 29.3 Corpuscular Hemoglobin Mean 32.0 Corpuscular Hemoglobin Conc ent Red Cell 14.8 H Distribution Width Platelet Count 461 H Mean Platelet 9.6 Volume Immature 1.300 H Granulocytes % Neutrophils % 91.0 H Lymphocytes % 2.4 L Monocytes % 5.0 Eosinophils % 0.0 Basophils % 0.3 Nucleated Red 0.3 H Blood Cells % Immature 0.210 H Granulocytes # Neutrophils # 14.4 H Lymphocytes # 0.4 L Monocytes # 0.8 Eosinophils # 0.0 Basophils # 0.0 Nucleated Red 0.0 Blood Cells # Sodium Level 141 Potassium Level 5.0 Chloride Level 105 Carbon Dioxide 17 L Level Anion Gap 19 #H Blood Urea 50 H Nitrogen Creatinine 5.84 H Est Glomerular 10 L Filtrat Rate mL/min Glucose Level 128 Calcium Level 9.0 Phosphorus 7.9 H Level Creatine Kinase 97 Creatine Kinase 2.5 Index Creatinine 2.40 Kinase MB (Mass) Troponin I 0.119 Bedside Glucose 128 126 Blood Gas Blood Specimen arterial Source Arterial Blood 03/28/2019 8:30 Date Drawn :06 AM Arterial Blood 7.286 *L pH (Temp corrected ) Arterial Blood 32.4 L pCO2 (Temp correct) Arterial Blood 82.5 pO2 (Temp corrected ) Arterial Blood 15.1 L HCO3 Arterial Blood -10.5 L Base Excess Arterial Blood 95.2 Oxygen Saturati on Lyle Test ACCEPTAB Arterial Blood Right Radial Gas Puncture Site Arterial 0.3 Blood Carboxyhe moglobin Arterial Blood 0.2 Methemoglobin Blood Gas A-a 526.0 H O2 Differential Oxyhemoglobin 94.7 Percent Blood Gas 37.0 Temperature Blood Gas 16.0 Respiration Rate Blood Gas 24 Actual Respiration Rat e Blood Gas MASK - BIPAP Modality FiO2 90.0 Blood Gas 10 Pressure Support Blood Gas 15/5 IPAP/EPAP Ratio Blood Gas L XENIA HO Critical Value Read Back Blood Gas DT Notified Whom Blood Gas 03/28/2019 8:51 Notified Time :35 AM Medications Medications Current Medications Albuterol (Proventil 0.083% (Neb)) 2.5 mg ICU RECOVERY PRN HHN .WHEEZING; Start 03/23/19 at 11:30 Aspirin (Aspirin) 325 mg DAILY PO Last administered on 03/27/19 09:30; Admin Dose 325 MG; Start 03/24/19 at 09:00 Amlodipine Besylate (Norvasc) 5 mg DAILY PO Last administered on 03/27/19 08:41; Admin Dose 5 MG; Start 03/24/19 at 09:00 Atorvastatin Calcium (Lipitor) 40 mg QHS PO Last administered on 03/27/19 21:18; Admin Dose 40 MG; Start 03/23/19 at 21:00 Carvedilol (Coreg) 12.5 mg BID PO Last administered on 03/27/19 21:19; Admin Dose 12.5 MG; Start 03/23/19 at 21:00 Linagliptin (Tradjenta) 5 mg DAILY PO Last administered on 03/27/19 08:42; Admin Dose 5 MG; Start 03/24/19 at 09:00 Metoclopramide HCl (Reglan) 5 mg AC MEALS PO Last administered on 03/28/19 07:49; Admin Dose 5 MG; Start 03/23/19 at 17:05 Ranitidine HCl (Zantac) 150 mg DAILY PO Last administered on 03/27/19 09:30; Admin Dose 150 MG; Start 03/24/19 at 09:00 Ondansetron HCl (Zofran Inj) 4 mg Q4H PRN IV NAUSEA AND/OR VOMITING Last administered on 03/28/19 08:20; Admin Dose 4 MG; Start 03/23/19 at 18:00 Metoclopramide HCl (Reglan) 10 mg Q6H PRN IV NAUSEA Last administered on 03/27/19 08:40; Admin Dose 10 MG; Start 03/23/19 at 18:00 Diagnostic Test (Pha) (Accu-Chek) 1 ea Q4 XX Last administered on 03/28/19 09:22; Admin Dose 1 EA; Start 03/23/19 at 21:00 Insulin Aspart (Novolog Insulin Pen) NOVOLOG *MILD* ALGORITHM WITH MEALS BEDTIME SC Last administered on 03/24/19 17:11; Admin Dose 1 UNIT; Start 03/23/19 at 21:00 Hydromorphone HCl (Dilaudid) 2 mg Q4H PRN IV SEVERE PAIN LEVEL 7-10 Last administered on 03/28/19 08:21; Admin Dose 2 MG; Start 03/23/19 at 18:00 Miscellaneous Information 1 ea NOTE XX ; Start 03/23/19 at 18:30 Glucose (Glutose) 15 gm Q15M PRN PO DECREASED GLUCOSE; Start 03/23/19 at 18:30 Glucose (Glutose) 22.5 gm Q15M PRN PO DECREASED GLUCOSE; Start 03/23/19 at 18:30 Dextrose (D50w Syringe) 25 ml Q15M PRN IV DECREASED GLUCOSE; Start 03/23/19 at 18:30 Dextrose (D50w Syringe) 50 ml Q15M PRN IV DECREASED GLUCOSE; Start 03/23/19 at 18:30 Glucagon (Glucagen) 1 mg Q15M PRN IM DECREASED GLUCOSE; Start 03/23/19 at 18:30 Glucose (Glutose) 15 gm Q15M PRN BUCCAL DECREASED GLUCOSE; Start 03/23/19 at 18:30 Epoetin Joseph-epbx (Retacrit (Esrd)) 10,000 unit TuThSa@1700 SC Last administered on 03/26/19 17:07; Admin Dose 10,000 UNIT; Start 03/24/19 at 17:00 Ferric Sodium Gluconate Complex 125 mg/Sodium Chloride 110 ml @ 110 mls/hr DAILY@1300 IVPB Last administered on 03/27/19 14:01; Admin Dose 110 MLS/HR; Start 03/24/19 at 13:00; Stop 03/28/19 at 13:59 Acetaminophen/ Hydrocodone Bitart ([place] (5/325)) 1 tab Q6H PRN PO .MOD PAIN 4- 6 Last administered on 03/25/19 14:33; Admin Dose 1 TAB; Start 03/24/19 at 22:30 Vancomycin HCl (Vanco Iv Per Pharmacy) VANCOMYCIN PER PHARMACY PER PROTOCOL XX ; Start 03/25/19 at 14:30 Piperacillin Sod/ Tazobactam Sod 50 ml @ 100 mls/hr Q8 IVPB Last administered on 03/28/19 05:54; Admin Dose 100 MLS/HR; Start 03/25/19 at 15:00 Calcium Acetate (Phoslo) 667 mg WITH MEALS PO Last administered on 03/28/19 07:49; Admin Dose 667 MG; Start 03/26/19 at 12:00 Albumin Human 100 ml @ 100 mls/hr WITH DIALYSIS PRN IV SBP <90 DURING DIALYSIS Last administered on 03/27/19 16:25; Admin Dose 100 MLS/HR; Start 03/27/19 at 12:00 Albuterol/ Ipratropium (Duoneb) 3 ml Q4HWA RESP THERAPY HHN Last administered on 03/28/19 08:48; Admin Dose 3 ML; Start 03/27/19 at 21:00 Heparin Sodium (Porcine) (Heparin (1000 Units/ml)) 3,000 unit AFTER DIALYSIS CATHETER ; Start 03/28/19 at 09:30 ANJELICA NOEL MD Mar 28, 2019 12:03
[2019-03-28] MEDS: LINAGLIPTIN 5 MG TABLET PO SCH (12:38)
[2019-03-28] MEDS: ASPIRIN 325 MG TAB PO SCH (12:38)
[2019-03-28] MEDS: RANITIDINE 150 MG TAB PO SCH (12:38)
[2019-03-28] MEDS: AMLODIPINE 5 MG TAB PO SCH (12:39)
[2019-03-28] MEDS: SOD FERRIC GLUC COMPLX 125 MG in SOD CHLORIDE 0.9% 100 ML IVPB SCH (13:06)
--- NOTE | 2019-03-28 14:18 | PN ---
DATE: 03/28/2019 SUBJECTIVE: Chart reviewed. Events noted. The patient was dialyzed yesterday with 2.6 liter of flu id removal. Today was dialyzed with 3 liter fluid removal. The patient remains on BiPAP saturating 99%. The patient is now down to 50% FIO2. The patient was seen by nephrology and cardiology earlier today as well. PHYSICAL EXAMINATION: VITAL SIGNS: Blood pressure 132/65, pulse 81, respiration 18, temperature afebrile. HEENT: Pupils are equal and react to light. BiPAP in place. NECK: Supple, no JVD noted, no cervical adenopathy noted. LUNGS: Decreased breath sounds at the bases. CARDIOVASCULAR: S1, S2 normal. ABDOMEN: Soft, nontender, no megaly or masses noted. EXTREMITIES: No clubbing or cyanosis noted. NEUROLOGICAL: Awake. LABORATORY DATA: WBC 15.9, hemoglobin 9.6, hematocrit 30, platelets 461. Sodium 141, potassium 5.0, chloride 105, CO2 17, BUN 50, creatinine 5.84, glucose 128. ABG earlier showed pH of 7.28, pCO2 of 32, pO2 of 83. IMAGING: No chest x-ray done today. IMPRESSION: 1. Acute hypoxemic respiratory failure requiring BiPAP support. 2. Acute on chronic renal failure with volume overload, responding well to hemodialysis. 3. Peripheral vascular disease, status post revascularization. 4. Possible healthcare-associated pneumonia. 5. Diabetes mellitus. 6. History of hypertension. 7. Benign prostatic hypertrophy. RECOMMENDATIONS: 1. Continue FIO2. 2. Will likely switch to O2 nasal cannula and obtain a followup ABG. 3. Hemodialysis and ultrafiltration as per nephrology. 4. Followup x-ray and labs. 5. Above was discussed with the staff in detail. Dictated By: RUTHIE KLEIN MD, MA/NTS Conf#: [id number] DID#: [id number] CC: WALTER LOWERY MD;*End*
--- NOTE | 2019-03-28 14:36 | CONS ---
Assessment/Plan Assessment/Plan Hospital Course (Demo Recall) assessment/impression - acute hypoxic resp failure, probably multifactorial: first, fluid overload. Pt's oxygenation improved after undergoing dialysis and so fluid overload is a significant factor. Second, I suspect aspiration pneumonia/pneumonitis. Pt reportedly was having spells of congested cough upon arrival at ICU. Pt has h/o "excessive saliva production" since 08/2018 according to Pt's family member. This increases a risk of aspiration pneumonia and/or pneumonitis. 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 will decide an appropriate duration - his account of "excessive saliva production" that is worse while lying down in bed is suspicious for GERD, and I recommended to Pt's daughter in law f/u with his PMD or GI specialist management d/w Pt's VIC Hardy, daughter in law. [place] Pt's background from Dr. Mtz too the critical time that I took to care for this Pt today was 45 min Consultation Date/Type/Reason Admit Date/Time Mar 23, 2019 at 06:13 Date of Consultation: Mar 28, 2019 Type of Consult ID Reason for Consultation possible pneumonia Requesting Provider: JOSE MTZ MD Date/Time of Note DATE: 03/28/19 TIME: 14:12 Hx of Present Illness This is a 68 male with DM, PVD and CKD. Pt is lethargic on the face mask and the history was taken from Pt's daughter in law, VIC Hardy who took care of him b efore and from EMR. Pt has long h/o PVD of RLE, had amputation of R 5th toe and percutaneous intervention in the past. In 01/2019 Pt developed claudication of RLE and was diagnosed with occluded R popliteal artery. After that he sustained a trauma to R 1st and 2nd toes, which progressed to become gangrenous. At the end of 02/2019 Pt was admitted at [facility] because Pt had pain of these toes. Pt received pip/tazo and IV vancomycin, and was discharged home with a short course of PO Augmentin. On 03/23/2019 Pt was readmitted after undergoing vascular bypass surgery: R SFA to posterior tibial bypass using in situ greater saphenous vein from R thigh and calf. Pt would get R TMA in the future. His WBC increased after the surgery to 19.7. It improved to 11.0 on 03/27/19. Pt has been on pip/tazo and IV vanc since 03/25/19. He remains afebrile and his HR is within normal limits. Post op, Pt was initially on the room-air. However on 03/27/19 Pt became dyspneic and developed acute hypoxic resp failure. He was initially on nasal cannula, which was escalated to high flow and finally to bipap in the even ing on 03/27/2019 (last night). Pt was transferred to the ICU. Earlier yesterday, Pt's Cr level reached at highest point of 6.21. Pt received a L femoral trialysis catheter. As he arrived at ICU he was having congested coughing spell according to RN Hayley. Pt was started on HD and 2.5L of fluid wa s removed. Today Pt had another HD and 3L of fluid was removed. around noon of 04/06/2019 Pt was on a nasal canula. As I waked in his room and asking him questions, he c/o dyspnea, mid-chest pain. He indeed desaturated and the nasal cannula was replaced by a face mask. There is question of whether his hypoxic resp failure is caused by infection and/or by non-infectious causes e.g. fluid overload. According to Pt's daughter in law, Pt was not having URI symptoms prior to the admission. He has had "excessive saliva" since 08/2018. Ht feels that he makes excessive amount of saliva, and it irritates the throat. The Sx is worse as he wakes up in the morning. Dr. Mtz requested ID consultation on this Pt. Constitutional: No febrile Eyes: no complaints ENT: congestion, other (excessive production of saliva) Respiratory: cough, shortness of breath, sputum Cardiovascular: chest pain (L sided) Gastrointestinal: constipation, nausea Genitourinary: other (testicular swelling) Musculoskeletal: restricted range of motion (due to R gangrenous toes) Skin: other (eschar/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 2nd toes) Neurologic: other (feels weak) Past Medical History Medical History: diabetes, high cholesterol, hypertension, renal disease, other (PVD, BPH) Home Meds Active Scripts Amoxicillin/Potassium Clav (Amox-Clav 875-125 mg Tablet) 875-125 mg Tab, 1 TAB PO BID for 5 Days, #10 TAB 0 Refills Prov:JOSE MTZ MD 03/18/19 Linagliptin (TRADJENTA) 5 Mg Tablet, 5 MG PO DAILY for 30 Days, #30 TAB 3 Refills Prov:JOSE MTZ MD 03/18/19 Hydrocodone Bit-Acetaminophen (Hydrocodone Bit-APAP) 5-325MG Tablet, 1 TAB PO Q6H PRN for .MOD PAIN 4-6 for 5 Days, #20 TAB 0 Refills Prov:JOSE MTZ MD 03/18/19 Ferrous Sulfate* (Ferrous Sulfate*) 325 Mg Tabec, 325 MG PO TID for 30 Days, #90 TAB 2 Refills Prov:JOSE MTZ MD 03/18/19 Ranitidine Hcl* (Ranitidine Hcl*) 150 Mg Tablet, 150 MG PO DAILY for 30 Days, #30 TAB 5 Refills Prov:JOSE MTZ MD 02/02/19 Metoclopramide Hcl* (Metoclopramide Hcl*) 5 Mg Tablet, 5 MG PO AC MEALS for 30 Days, #90 TAB 5 Refills Prov:JOSE MTZ MD 02/02/19 Carvedilol* (Carvedilol*) 12.5 Mg Tablet, 12.5 MG PO BID for 30 Days, #60 TAB 5 Refills Prov:JOSE MTZ MD 02/02/19 Cilostazol* (Cilostazol*) 100 Mg Tablet, 50 MG PO BID for 30 Days, #30 TAB 5 Refills Prov:JOSE MTZ MD 02/02/19 Reported Medications Glycopyrrolate* (Glycopyrrolate*) 1 Mg Tablet, 1 MG PO BID, TAB 01/29/19 Amlodipine Besylate* (Norvasc*) 5 Mg Tablet, 5 MG PO DAILY, TAB 01/29/19 Ergocalciferol (Vitamin D2) (VITAMIN D2) 50,000 Unit Capsule, 36791 UNIT PO Q FRI, CAP 01/29/19 Atorvastatin* (Atorvastatin*) 40 Mg Tablet, 40 MG PO QHS, #30 TAB 01/29/19 Medications Current Medications Albuterol (Proventil 0.083% (Neb)) 2.5 mg ICU RECOVERY PRN HHN .WHEEZING; Start 03/23/19 at 11:30 Aspirin (Aspirin) 325 mg DAILY PO Last administered on 03/28/19 12:38; Admin Dose 325 MG; Start 03/24/19 at 09:00 Amlodipine Besylate (Norvasc) 5 mg DAILY PO Last administered on 03/28/19 12:39; Admin Dose 5 MG; Start 03/24/19 at 09:00 Atorvastatin Calcium (Lipitor) 40 mg QHS PO Last administered on 03/27/19 21:18; Admin Dose 40 MG; Start 03/23/19 at 21:00 Carvedilol (Coreg) 12.5 mg BID PO Last administered on 03/28/19 12:38; Admin Dose 12.5 MG; Start 03/23/19 at 21:00 Linagliptin (Tradjenta) 5 mg DAILY PO Last administered on 03/28/19 12:38; Admin Dose 5 MG; Start 03/24/19 at 09:00 Metoclopramide HCl (Reglan) 5 mg AC MEALS PO Last administered on 03/28/19 12:39; Admin Dose 5 MG; Start 03/23/19 at 17:05 Ranitidine HCl (Zantac) 150 mg DAILY PO Last administered on 03/28/19 12:38; Admin Dose 150 MG; Start 03/24/19 at 09:00 Ondansetron HCl (Zofran Inj) 4 mg Q4H PRN IV NAUSEA AND/OR VOMITING Last administered on 03/28/19 08:20; Admin Dose 4 MG; Start 03/23/19 at 18:00 Metoclopramide HCl (Reglan) 10 mg Q6H PRN IV NAUSEA Last administered on 03/27/19 08:40; Admin Dose 10 MG; Start 03/23/19 at 18:00 Diagnostic Test (Pha) (Accu-Chek) 1 ea Q4 XX Last administered on 03/28/19 13:05; Admin Dose 1 EA; Start 03/23/19 at 21:00 Insulin Aspart (Novolog Insulin Pen) NOVOLOG *MILD* ALGORITHM WITH MEALS BEDTIME SC Last administered on 03/24/19at 17:11; Admin Dose 1 UNIT; Start 03/23/19 at 21:00 Hydromorphone HCl (Dilaudid) 2 mg Q4H PRN IV SEVERE PAIN LEVEL 7-10 Last administered on 03/28/19 08:21; Admin Dose 2 MG; Start 03/23/19 at 18:00 Miscellaneous Information 1 ea NOTE XX ; Start 03/23/19 at 18:30 Glucose (Glutose) 15 gm Q15M PRN PO DECREASED GLUCOSE; Start 03/23/19 at 18:30 Glucose (Glutose) 22.5 gm Q15M PRN PO DECREASED GLUCOSE; Start 03/23/19 at 18:30 Dextrose (D50w Syringe) 25 ml Q15M PRN IV DECREASED GLUCOSE; Start 03/23/19 at 18:30 Dextrose (D50w Syringe) 50 ml Q15M PRN IV DECREASED GLUCOSE; Start 03/23/19 at 18:30 Glucagon (Glucagen) 1 mg Q15M PRN IM DECREASED GLUCOSE; Start 03/23/19 at 18:30 Glucose (Glutose) 15 gm Q15M PRN BUCCAL DECREASED GLUCOSE; Start 03/23/19 at 18:30 Epoetin Joseph-epbx (Retacrit (Esrd)) 10,000 unit TuThSa@1700 SC Last administered on 03/26/19 17:07; Admin Dose 10,000 UNIT; Start 03/24/19 at 17:00 Acetaminophen/ Hydrocodone Bitart ([place] (5/325)) 1 tab Q6H PRN PO .MOD PAIN 4- 6 Last administered on 03/25/19at 14:33; Admin Dose 1 TAB; Start 03/24/19 at 22:30 Vancomycin HCl (Vanco Iv Per Pharmacy) VANCOMYCIN PER PHARMACY PER PROTOCOL XX ; Start 03/25/19 at 14:30 Piperacillin Sod/ Tazobactam Sod 50 ml @ 100 mls/hr Q8 IVPB Last administered on 03/28/19at 05:54; Admin Dose 100 MLS/HR; Start 03/25/19 at 15:00 Calcium Acetate (Phoslo) 667 mg WITH MEALS PO Last administered on 03/28/19at 12:38; Admin Dose 667 MG; Start 03/26/19 at 12:00 Albumin Human 100 ml @ 100 mls/hr WITH DIALYSIS PRN IV SBP <90 DURING DIALYSIS Last administered on 03/27/19 16:25; Admin Dose 100 MLS/HR; Start 03/27/19 at 12:00 Albuterol/ Ipratropium (Duoneb) 3 ml Q4HWA RESP THERAPY HHN Last administered on 03/28/19 08:48; Admin Dose 3 ML; Start 03/27/19 at 21:00 Heparin Sodium (Porcine) (Heparin (1000 Units/ml)) 3,000 unit AFTER DIALYSIS CATHETER Last administered on 03/28/19at 12:00; Admin Dose 3,000 UNIT; Start 03/28/19 at 09:30 Allergies: Coded Allergies: No Known Allergy (Unverified , 03/23/19) Past Surgical History Past Surgical Hx: other (toe amp, R forearm ORIF) Social History 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 ago) Drug Use: none Exam/Review of Systems Exam Vitals Vital Signs Date Temp Pulse Resp B/P (MAP) Pulse Ox O2 O2 Flow FiO2 Time Delivery Rate 03/28/19 8.0 13:25 03/28/19 92 17 152/70 91 Nasal 13:00 (97) Cannula 03/28/19 98.2 12:00 03/28/19 60 09:52 Intake and Output 03/27/19 03/27/19 03/28/19 1515:00 23:00 07:00 IntakeIntake Total 50 ml 50 ml 50 ml OutputOutput Total 350 ml 3990 ml 100 ml BalanceBalance -300 ml -3940 ml -50 ml Constitutional: frail Psych: confusion Head: normocephalic, atraumatic Eyes: nl conjunctiva, nl lids ENMT: nl external ears & nose, nl nasal mucosa & septum Neck: non-tender Respiratory: clear to auscultation Cardiovascular: regular rate and rhythm, nl pulses Gastrointestinal: soft, non-tender; No tender Musculoskeletal: other (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 2nd toes, s/p amputation of R 5th toe) Extremities: No edema Neurological: lethargic Skin: ecchymosis Results Result Diagram: 03/28/19 0454 03/28/19 0454 Results 24hrs Laboratory Tests Test 03/27/19 14:15 03/27/19 14:32 03/27/19 18:30 03/27/19 21:30 Bedside Glucose 134 109 Troponin I 0.096 0.097 Blood Gas Blood Specimen arterial Source Arterial Blood 03/27/2019 9:15 Date Drawn :32 PM Arterial Blood 7.322 L pH (Temp corrected ) Arterial Blood 35.0 pCO2 (Temp correct) Arterial Blood 66.8 L pO2 (Temp corrected ) Arterial Blood 17.7 L HCO3 Arterial Blood -7.6 L Base Excess Arterial Blood 91.5 L Oxygen Saturati on Lyle Test ACCEPTAB Arterial Blood Right Radial Gas Puncture Site Arterial 0.3 Blood Carboxyhe moglobin Arterial Blood 0.1 Methemoglobin Blood Gas A-a 611.2 H O2 Differential Oxyhemoglobin 91.1 L Percent Blood Gas 37.0 Temperature Blood Gas 34 Actual Respiration Rat e Blood Gas HFNC Modality FiO2 100.0 Blood Gas KB Notified Whom Blood Gas 03/27/2019 9:26 Notified Time :57 PM Test 03/27/19 23:00 03/28/19 00:38 03/28/19 00:39 03/28/19 04:54 Blood Gas Blood arterial Specimen Source Arterial Blood 03/27/2019 11:19 Date Drawn :53 PM Arterial Blood 7.303 L pH (Temp corrected ) Arterial Blood 34.3 L pCO2 (Temp correct) Arterial Blood 109.3 H pO2 (Temp corrected ) Arterial Blood 16.6 L HCO3 Arterial Blood -8.9 L Base Excess Arterial Blood 97.3 Oxygen Saturati on Lyle Test ACCEPTAB Arterial Blood Right Radial Gas Puncture Site Arterial 0.3 Blood Carboxyhe moglobin Arterial Blood 0.1 Methemoglobin Blood Gas A-a 569.4 H O2 Differential Oxyhemoglobin 96.9 Percent Blood Gas 37.0 Temperature Blood Gas 16.0 Respiration Rate Blood Gas 28 Actual Respiration Rat e Blood Gas MASK - BIPAP Modality FiO2 100.0 Blood Gas 15/5 IPAP/EPAP Ratio Blood Gas MANUEL DURHAM Notified Whom Blood Gas 03/27/2019 11:31 Notified Time :24 PM Creatine Kinase 100 97 Creatine Kinase 1.8 2.5 Index Creatinine 1.78 2.40 Kinase MB (Mass) Troponin I 0.099 0.119 Bedside Glucose 118 White Blood 15.9 #H Count Red Blood Count 3.28 L Hemoglobin 9.6 L Hematocrit 30.0 L Mean 91.5 Corpuscular Volume Mean 29.3 Corpuscular Hemoglobin Mean 32.0 Corpuscular Hemoglobin Conc ent Red Cell 14.8 H Distribution Width Platelet Count 461 H Mean Platelet 9.6 Volume Immature 1.300 H Granulocytes % Neutrophils % 91.0 H Lymphocytes % 2.4 L Monocytes % 5.0 Eosinophils % 0.0 Basophils % 0.3 Nucleated Red 0.3 H Blood Cells % Immature 0.210 H Granulocytes # Neutrophils # 14.4 H Lymphocytes # 0.4 L Monocytes # 0.8 Eosinophils # 0.0 Basophils # 0.0 Nucleated Red 0.0 Blood Cells # Sodium Level 141 Potassium Level 5.0 Chloride Level 105 Carbon Dioxide 17 L Level Anion Gap 19 #H Blood Urea 50 H Nitrogen Creatinine 5.84 H Est Glomerular 10 L Filtrat Rate mL/min Glucose Level 128 Calcium Level 9.0 Phosphorus 7.9 H Level Test 03/28/19 05:43 03/28/19 07:00 03/28/19 08:08 03/28/19 12:45 Bedside Glucose 128 126 90 Blood Gas Blood arterial Specimen Source Arterial Blood 03/28/2019 8:30: Date Drawn 06 AM Arterial Blood 7.286 *L pH (Temp corrected ) Arterial Blood 32.4 L pCO2 (Temp correct) Arterial Blood 82.5 pO2 (Temp corrected ) Arterial Blood 15.1 L HCO3 Arterial Blood -10.5 L Base Excess Arterial Blood 95.2 Oxygen Saturati on Lyle Test ACCEPTAB Arterial Blood Right Radial Gas Puncture Site Arterial 0.3 Blood Carboxyhe moglobin Arterial Blood 0.2 Methemoglobin Blood Gas A-a 526.0 H O2 Differential Oxyhemoglobin 94.7 Percent Blood Gas 37.0 Temperature Blood Gas 16.0 Respiration Rate Blood Gas 24 Actual Respiration Rat e Blood Gas MASK - BIPAP Modality FiO2 90.0 Blood Gas 10 Pressure Support Blood Gas 15/5 IPAP/EPAP Ratio Blood Gas L XENIA HO Critical Value Read Back Blood Gas DT Notified Whom Blood Gas 03/28/2019 8:51: Notified Time 35 AM Test 03/28/19 13:17 Lactic Acid 1.4 Level Medications Medication Current Medications Albuterol (Proventil 0.083% (Neb)) 2.5 mg ICU RECOVERY PRN HHN .WHEEZING; Start 03/23/19 at 11:30 Aspirin (Aspirin) 325 mg DAILY PO Last administered on 03/28/19 12:38; Admin Dose 325 MG; Start 03/24/19 at 09:00 Amlodipine Besylate (Norvasc) 5 mg DAILY PO Last administered on 03/28/19 12:39; Admin Dose 5 MG; Start 03/24/19 at 09:00 Atorvastatin Calcium (Lipitor) 40 mg QHS PO Last administered on 03/27/19 21:18; Admin Dose 40 MG; Start 03/23/19 at 21:00 Carvedilol (Coreg) 12.5 mg BID PO Last administered on 03/28/19 12:38; Admin Dose 12.5 MG; Start 03/23/19 at 21:00 Linagliptin (Tradjenta) 5 mg DAILY PO Last administered on 03/28/19 12:38; Admin Dose 5 MG; Start 03/24/19 at 09:00 Metoclopramide HCl (Reglan) 5 mg AC MEALS PO Last administered on 03/28/19 12:39; Admin Dose 5 MG; Start 03/23/19 at 17:05 Ranitidine HCl (Zantac) 150 mg DAILY PO Last administered on 03/28/19 12:38; Admin Dose 150 MG; Start 03/24/19 at 09:00 Ondansetron HCl (Zofran Inj) 4 mg Q4H PRN IV NAUSEA AND/OR VOMITING Last administered on 03/28/19 08:20; Admin Dose 4 MG; Start 03/23/19 at 18:00 Metoclopramide HCl (Reglan) 10 mg Q6H PRN IV NAUSEA Last administered on 03/27/19 08:40; Admin Dose 10 MG; Start 03/23/19 at 18:00 Diagnostic Test (Pha) (Accu-Chek) 1 ea Q4 XX Last administered on 03/28/19 13:05; Admin Dose 1 EA; Start 03/23/19 at 21:00 Insulin Aspart (Novolog Insulin Pen) NOVOLOG *MILD* ALGORITHM WITH MEALS BEDTIME SC Last administered on 03/24/19 17:11; Admin Dose 1 UNIT; Start 03/23/19 at 21:00 Hydromorphone HCl (Dilaudid) 2 mg Q4H PRN IV SEVERE PAIN LEVEL 7-10 Last admini stered on 03/28/19at 08:21; Admin Dose 2 MG; Start 03/23/19 at 18:00 Miscellaneous Information 1 ea NOTE XX ; Start 03/23/19 at 18:30 Glucose (Glutose) 15 gm Q15M PRN PO DECREASED GLUCOSE; Start 03/23/19 at 18:30 Glucose (Glutose) 22.5 gm Q15M PRN PO DECREASED GLUCOSE; Start 03/23/19 at 18:30 Dextrose (D50w Syringe) 25 ml Q15M PRN IV DECREASED GLUCOSE; Start 03/23/19 at 18:30 Dextrose (D50w Syringe) 50 ml Q15M PRN IV DECREASED GLUCOSE; Start 03/23/19 at 18:30 Glucagon (Glucagen) 1 mg Q15M PRN IM DECREASED GLUCOSE; Start 03/23/19 at 18:30 Glucose (Glutose) 15 gm Q15M PRN BUCCAL DECREASED GLUCOSE; Start 03/23/19 at 18:30 Epoetin Joseph-epbx (Retacrit (Esrd)) 10,000 unit TuThSa@1700 SC Last adminis tered on 03/26/19at 17:07; Admin Dose 10,000 UNIT; Start 03/24/19 at 17:00 Acetaminophen/ Hydrocodone Bitart ([place] (5/325)) 1 tab Q6H PRN PO .MOD PAIN 4- 6 Last administered on 03/25/19at 14:33; Admin Dose 1 TAB; Start 03/24/19 at 22:30 Vancomycin HCl (Vanco Iv Per Pharmacy) VANCOMYCIN PER PHARMACY PER PROTOCOL XX ; Start 03/25/19 at 14:30 Piperacillin Sod/ Tazobactam Sod 50 ml @ 100 mls/hr Q8 IVPB Last administered on 03/28/19 05:54; Admin Dose 100 MLS/HR; Start 03/25/19 at 15:00 Calcium Acetate (Phoslo) 667 mg WITH MEALS PO Last administered on 03/28/19 12:38; Admin Dose 667 MG; Start 03/26/19 at 12:00 Albumin Human 100 ml @ 100 mls/hr WITH DIALYSIS PRN IV SBP <90 DURING DIALYSIS Last administered on 03/27/19 16:25; Admin Dose 100 MLS/HR; Start 03/27/19 at 12:00 Albuterol/ Ipratropium (Duoneb) 3 ml Q4HWA RESP THERAPY HHN Last administered on 03/28/19 08:48; Admin Dose 3 ML; Start 03/27/19 at 21:00 Heparin Sodium (Porcine) (Heparin (1000 Units/ml)) 3,000 unit AFTER DIALYSIS CATHETER Last administered on 03/28/19 12:00; Admin Dose 3,000 UNIT; Start 03/28/19 at 09:30 LUDMILA ANTOINE M.D. Mar 28, 2019 14:27
--- NOTE | 2019-03-28 15:28 | PN ---
Date/Time of Note Date/Time of Note DATE: 03/28/19 TIME: 15:06 Assessment/Plan VTE Prophylaxis Risk score (from Ns)>0 risk: 9 [place] [facility] [place] contraindicated: other Pharmacological prophylaxis: other Lines/Catheters IV C[facility]ter Type (from [facility]): [place] Central line still needed: No Urinary Cath still in place: Yes Reason Cath still needed: urinary retention Assessment/Plan Problems: (1) Acute respiratory failure with hypoxia Status: Acute Comment: On high flow oxygen. CXR showing cardiomegaly and central pulmonary congestion with bilateral interstitial infiltrates/edema and bilateral pleural effusions. Also noted is a right perihilar mass-like consolidation and right lower lobe infiltrates. Although findings could represent pneumonia, cannot exclude malignancy. (2) Type 2 diabetes mellitus with diabetic peripheral angiopathy with gangrene Status: Acute Comment: Good glycemic control. S/P revascularization. Plan for transmetatarsal amputation once clinically stable. (3) Essential (primary) hypertension Status: Chronic Comment: Suboptimal control. (4) Chronic kidney disease, stage IV (severe) Status: Chronic Comment: Has had to consecutive days of HD (5) Disturbance of salivary secretion Status: Resolved Comment: improved (6) Constipation Status: Acute Comment: No BM since admission. KUB pending to rule out ileus. Will add MOM and Enema as options. (7) Nausea Status: Acute Comment: KUB pending to rule out ileus Result Diagram: 03/28/19 0454 03/28/19 0454 Results 24hrs Laboratory Tests Test 03/27/19 18:30 03/27/19 21:30 03/27/19 23:00 03/28/19 00:38 Troponin I 0.097 0.099 Blood Gas Blood arterial Blood arterial Specimen Source Arterial Blood 03/27/2019 9:15: 03/27/2019 11:19 Date Drawn 32 PM :53 PM Arterial Blood 7.322 L 7.303 L pH (Temp corrected ) Arterial Blood 35.0 34.3 L pCO2 (Temp correct) Arterial Blood 66.8 L 109.3 H pO2 (Temp corrected ) Arterial Blood 17.7 L 16.6 L HCO3 Arterial Blood -7.6 L -8.9 L Base Excess Arterial Blood 91.5 L 97.3 Oxygen Saturati on Lyle Test ACCEPTAB ACCEPTAB Arterial Blood Right Radial Right Radial Gas Puncture Site Arterial 0.3 0.3 Blood Carboxyhe moglobin Arterial Blood 0.1 0.1 Methemoglobin Blood Gas A-a 611.2 H 569.4 H O2 Differential Oxyhemoglobin 91.1 L 96.9 Percent Blood Gas 37.0 37.0 Temperature Blood Gas 34 28 Actual Respiration Rat e Blood Gas HFNC MASK - BIPAP Modality FiO2 100.0 100.0 Blood Gas BRENDAN DURHAM RCP Notified Whom Blood Gas 03/27/2019 9:26: 03/27/2019 11:31 Notified Time 57 PM :24 PM Bedside Glucose 109 Blood Gas 16.0 Respiration Rate Blood Gas 15 IPAP/EPAP Ratio Creatine Kinase 100 Creatine Kinase 1.8 Index Creatinine 1.78 Kinase MB (Mass) Test 03/28/19 00:39 03/28/19 04:54 03/28/19 05:43 03/28/19 07:00 Bedside Glucose 118 128 White Blood 15.9 #H Count Red Blood Count 3.28 L Hemoglobin 9.6 L Hematocrit 30.0 L Mean 91.5 Corpuscular Volume Mean 29.3 Corpuscular Hemoglobin Mean 32.0 Corpuscular Hemoglobin Conc ent Red Cell 14.8 H Distribution Width Platelet Count 461 H Mean Platelet 9.6 Volume Immature 1.300 H Granulocytes % Neutrophils % 91.0 H Lymphocytes % 2.4 L Monocytes % 5.0 Eosinophils % 0.0 Basophils % 0.3 Nucleated Red 0.3 H Blood Cells % Immature 0.210 H Granulocytes # Neutrophils # 14.4 H Lymphocytes # 0.4 L Monocytes # 0.8 Eosinophils # 0.0 Basophils # 0.0 Nucleated Red 0.0 Blood Cells # Sodium Level 141 Potassium Level 5.0 Chloride Level 105 Carbon Dioxide 17 L Level Anion Gap 19 #H Blood Urea 50 H Nitrogen Creatinine 5.84 H Est Glomerular 10 L Filtrat Rate mL/min Glucose Level 128 Calcium Level 9.0 Phosphorus 7.9 H Level Creatine Kinase 97 Creatine Kinase 2.5 Index Creatinine 2.40 Kinase MB (Mass) Troponin I 0.119 Blood Gas Blood Specimen arterial Source Arterial Blood 03/28/2019 8:30 Date Drawn :06 AM Arterial Blood 7.286 *L pH (Temp corrected ) Arterial Blood 32.4 L pCO2 (Temp correct) Arterial Blood 82.5 pO2 (Temp corrected ) Arterial Blood 15.1 L HCO3 Arterial Blood -10.5 L Base Excess Arterial Blood 95.2 Oxygen Saturati on Lyle Test ACCEPTAB Arterial Blood Right Radial Gas Puncture Site Arterial 0.3 Blood Carboxyhe moglobin Arterial Blood 0.2 Methemoglobin Blood Gas A-a 526.0 H O2 Differential Oxyhemoglobin 94.7 Percent Blood Gas 37.0 Temperature Blood Gas 16.0 Respiration Rate Blood Gas 24 Actual Respiration Rat e Blood Gas MASK - BIPAP Modality FiO2 90.0 Blood Gas 10 Pressure Support Blood Gas 15/5 IPAP/EPAP Ratio Blood Gas L XENIA HO Critical Value Read Back Blood Gas DT Notified Whom Blood Gas 03/28/2019 8:51 Notified Time :35 AM Test 03/28/19 08:08 03/28/19 12:45 03/28/19 13:17 Bedside Glucose 126 90 Lactic Acid 1.4 Level Procalcitonin 3.39 H Subjective 24 Hr Interval Summary Free Text/Dictation Breathing better. Less sialorrhea. Denies lower extremity pain. Current c/o nausea Exam/Review of Systems Exam Vitals Vital Signs Date Temp Pulse Resp B/P (MAP) Pulse Ox O2 O2 Flow FiO2 Time Delivery Rate 03/28/19 8.0 13:25 03/28/19 92 17 152/70 91 Nasal 13:00 (97) Cannula 03/28/19 98.2 12:00 03/28/19 60 09:52 Intake and Output 03/27/19 03/27/19 03/28/19 1515:00 23:00 07:00 IntakeIntake Total 50 ml 50 ml 50 ml OutputOutput Total 350 ml 3990 ml 100 ml BalanceBalance -300 ml -3940 ml -50 ml Constitutional: alert, oriented Neck: supple Respiratory: crackles/rales, diminished breath sounds, other (On high flow oxygen) Cardiovascular: regular rate and rhythm Gastrointestinal: soft, other (palpation provokes nausea) Musculoskeletal: other (bandage) Additional Comments POC glucose and labs reviewed Results Results 24hrs Laboratory Tests Test 03/27/19 18:30 03/27/19 21:30 03/27/19 23:00 03/28/19 00:38 Troponin I 0.097 0.099 Blood Gas Blood arterial Blood arterial Specimen Source Arterial Blood 03/27/2019 9:15: 03/27/2019 11:19 Date Drawn 32 PM :53 PM Arterial Blood 7.322 L 7.303 L pH (Temp corrected ) Arterial Blood 35.0 34.3 L pCO2 (Temp correct) Arterial Blood 66.8 L 109.3 H pO2 (Temp corrected ) Arterial Blood 17.7 L 16.6 L HCO3 Arterial Blood -7.6 L -8.9 L Base Excess Arterial Blood 91.5 L 97.3 Oxygen Saturati on Lyle Test ACCEPTAB ACCEPTAB Arterial Blood Right Radial Right Radial Gas Puncture Site Arterial 0.3 0.3 Blood Carboxyhe moglobin Arterial Blood 0.1 0.1 Methemoglobin Blood Gas A-a 611.2 H 569.4 H O2 Differential Oxyhemoglobin 91.1 L 96.9 Percent Blood Gas 37.0 37.0 Temperature Blood Gas 34 28 Actual Respiration Rat e Blood Gas HFNC MASK - BIPAP Modality FiO2 100.0 100.0 Blood Gas BRENDAN DURHAM RCP Notified Whom Blood Gas 03/27/2019 9:26: 03/27/2019 11:31 Notified Time 57 PM :24 PM Bedside Glucose 109 Blood Gas 16.0 Respiration Rate Blood Gas 15/5 IPAP/EPAP Ratio Creatine Kinase 100 Creatine Kinase 1.8 Index Creatinine 1.78 Kinase MB (Mass) Test 03/28/19 00:39 03/28/19 04:54 03/28/19 05:43 03/28/19 07:00 Bedside Glucose 118 128 White Blood 15.9 #H Count Red Blood Count 3.28 L Hemoglobin 9.6 L Hematocrit 30.0 L Mean 91.5 Corpuscular Volume Mean 29.3 Corpuscular Hemoglobin Mean 32.0 Corpuscular Hemoglobin Conc ent Red Cell 14.8 H Distribution Width Platelet Count 461 H Mean Platelet 9.6 Volume Immature 1.300 H Granulocytes % Neutrophils % 91.0 H Lymphocytes % 2.4 L Monocytes % 5.0 Eosinophils % 0.0 Basophils % 0.3 Nucleated Red 0.3 H Blood Cells % Immature 0.210 H Granulocytes # Neutrophils # 14.4 H Lymphocytes # 0.4 L Monocytes # 0.8 Eosinophils # 0.0 Basophils # 0.0 Nucleated Red 0.0 Blood Cells # Sodium Level 141 Potassium Level 5.0 Chloride Level 105 Carbon Dioxide 17 L Level Anion Gap 19 #H Blood Urea 50 H Nitrogen Creatinine 5.84 H Est Glomerular 10 L Filtrat Rate mL/min Glucose Level 128 Calcium Level 9.0 Phosphorus 7.9 H Level Creatine Kinase 97 Creatine Kinase 2.5 Index Creatinine 2.40 Kinase MB (Mass) Troponin I 0.119 Blood Gas Blood Specimen arterial Source Arterial Blood 03/28/2019 8:30 Date Drawn :06 AM Arterial Blood 7.286 *L pH (Temp corrected ) Arterial Blood 32.4 L pCO2 (Temp correct) Arterial Blood 82.5 pO2 (Temp corrected ) Arterial Blood 15.1 L HCO3 Arterial Blood -10.5 L Base Excess Arterial Blood 95.2 Oxygen Saturati on Lyle Test ACCEPTAB Arterial Blood Right Radial Gas Puncture Site Arterial 0.3 Blood Carboxyhe moglobin Arterial Blood 0.2 Methemoglobin Blood Gas A-a 526.0 H O2 Differential Oxyhemoglobin 94.7 Percent Blood Gas 37.0 Temperature Blood Gas 16.0 Respiration Rate Blood Gas 24 Actual Respiration Rat e Blood Gas MASK - BIPAP Modality FiO2 90.0 Blood Gas 10 Pressure Support Blood Gas 15/5 IPAP/EPAP Ratio Blood Gas L XENIA HO Critical Value Read Back Blood Gas DT Notified Whom Blood Gas 03/28/2019 8:51 Notified Time :35 AM Test 03/28/19 08:08 03/28/19 12:45 03/28/19 13:17 Bedside Glucose 126 90 Lactic Acid 1.4 Level Procalcitonin 3.39 H Medications Medication Current Medications Albuterol (Proventil 0.083% (Neb)) 2.5 mg ICU RECOVERY PRN HHN .WHEEZING; Start 03/23/19 at 11:30 Aspirin (Aspirin) 325 mg DAILY PO Last administered on 03/28/19 12:38; Admin Dose 325 MG; Start 03/24/19 at 09:00 Amlodipine Besylate (Norvasc) 5 mg DAILY PO Last administered on 03/28/19 12:39; Admin Dose 5 MG; Start 03/24/19 at 09:00 Atorvastatin Calcium (Lipitor) 40 mg QHS PO Last administered on 03/27/19 21:18; Admin Dose 40 MG; Start 03/23/19 at 21:00 Carvedilol (Coreg) 12.5 mg BID PO Last administered on 03/28/19 12:38; Admin Dose 12.5 MG; Start 03/23/19 at 21:00 Linagliptin (Tradjenta) 5 mg DAILY PO Last administered on 03/28/19 12:38; Admin Dose 5 MG; Start 03/24/19 at 09:00 Metoclopramide HCl (Reglan) 5 mg AC MEALS PO Last administered on 03/28/19 12:39; Admin Dose 5 MG; Start 03/23/19 at 17:05 Ranitidine HCl (Zantac) 150 mg DAILY PO Last administered on 03/28/19 12:38; Admin Dose 150 MG; Start 03/24/19 at 09:00 Ondansetron HCl (Zofran Inj) 4 mg Q4H PRN IV NAUSEA AND/OR VOMITING Last administered on 03/28/19 08:20; Admin Dose 4 MG; Start 03/23/19 at 18:00 Metoclopramide HCl (Reglan) 10 mg Q6H PRN IV NAUSEA Last administered on 03/27/19 08:40; Admin Dose 10 MG; Start 03/23/19 at 18:00 Diagnostic Test (Pha) (Accu-Chek) 1 ea Q4 XX Last administered on 03/28/19 13:05; Admin Dose 1 EA; Start 03/23/19 at 21:00 Insulin Aspart (Novolog Insulin Pen) NOVOLOG *MILD* ALGORITHM WITH MEALS BEDTIME SC Last administered on 03/24/19 17:11; Admin Dose 1 UNIT; Start 03/23/19 at 21:00 Hydromorphone HCl (Dilaudid) 2 mg Q4H PRN IV SEVERE PAIN LEVEL 7-10 Last administered on 03/28/19 08:21; Admin Dose 2 MG; Start 03/23/19 at 18:00 Miscellaneous Information 1 ea NOTE XX ; Start 03/23/19 at 18:30 Glucose (Glutose) 15 gm Q15M PRN PO DECREASED GLUCOSE; Start 03/23/19 at 18:30 Glucose (Glutose) 22.5 gm Q15M PRN PO DECREASED GLUCOSE; Start 03/23/19 at 18:30 Dextrose (D50w Syringe) 25 ml Q15M PRN IV DECREASED GLUCOSE; Start 03/23/19 at 18:30 Dextrose (D50w Syringe) 50 ml Q15M PRN IV DECREASED GLUCOSE; Start 03/23/19 at 18:30 Glucagon (Glucagen) 1 mg Q15M PRN IM DECREASED GLUCOSE; Start 03/23/19 at 18:30 Glucose (Glutose) 15 gm Q15M PRN BUCCAL DECREASED GLUCOSE; Start 03/23/19 at 18:30 Epoetin Joseph-epbx (Retacrit (Esrd)) 10,000 unit TuThSa@1700 SC Last administered on 03/26/19at 17:07; Admin Dose 10,000 UNIT; Start 03/24/19 at 17:00 Acetaminophen/ Hydrocodone Bitart ([place] (5/325)) 1 tab Q6H PRN PO .MOD PAIN 4- 6 Last administered on 03/25/19 14:33; Admin Dose 1 TAB; Start 03/24/19 at 22:30 Vancomycin HCl (Vanco Iv Per Pharmacy) VANCOMYCIN PER PHARMACY PER PROTOCOL XX ; Start 03/25/19 at 14:30 Piperacillin Sod/ Tazobactam Sod 50 ml @ 100 mls/hr Q8 IVPB Last administered on 03/28/19 05:54; Admin Dose 100 MLS/HR; Start 03/25/19 at 15:00 Calcium Acetate (Phoslo) 667 mg WITH MEALS PO Last administered on 03/28/19 12:38; Admin Dose 667 MG; Start 03/26/19 at 12:00 Albumin Human 100 ml @ 100 mls/hr WITH DIALYSIS PRN IV SBP <90 DURING DIALYSIS Last administered on 03/27/19 16:25; Admin Dose 100 MLS/HR; Start 03/27/19 at 12:00 Albuterol/ Ipratropium (Duoneb) 3 ml Q4HWA RESP THERAPY HHN Last administered on 03/28/19 08:48; Admin Dose 3 ML; Start 03/27/19 at 21:00 Heparin Sodium (Porcine) (Heparin (1000 Units/ml)) 3,000 unit AFTER DIALYSIS CATHETER Last administered on 03/28/19 12:00; Admin Dose 3,000 UNIT; Start 03/28/19 at 09:30 OLIVIA FAN MD Mar 28, 2019 15:19
[2019-03-28] MEDS ORDERED: MAGNESIUM HYDROXIDE 30ML CUP PO PRN (15:30)
[2019-03-28] MEDS ORDERED: NA PHOSPHATE/BIPHOS 133 ML ENEMA PR PRN (15:30)
--- NOTE | 2019-03-28 17:17 | RADRPT ---
Vent Rate: 79 bpm RR Interval: 760 msec NH Interval: 147 msec QRS Duration: 89 msec QT Interval: 404 msec QTC Interval: 463 msec P-R-T [place]: 63 - 74 - 51 degrees Sinus rhythm...normal P axis, V-rate 50- 99 Electronically Signed By: Cullen Rodriguez
[2019-03-28] MEDS: EPOETIN ALFA-EPBX (ESRD) 10,000 UNIT/ML VIAL SC SCH (18:14)
[2019-03-28] MEDS: ATORVASTATIN 40 MG TAB PO SCH (20:48)
[2019-03-28] MEDS ORDERED: BUMETANIDE 25 MG in DEXTROSE 5% 150 ML IV SCH (23:30)
[2019-03-28] MEDS ORDERED: FUROSEMIDE 250 MG in DEXTROSE 5% 225 ML IV SCH (23:30)
[2019-03-29] VITALS (50 sets, daily range): BP systolic 87–146; BP diastolic 40–72; PULSE 72–180; RESP 15–25
[2019-03-29] MEDS: ACCU-CHEK XX SCH ×6 (01:00→21:00)
[2019-03-29] MEDS: PIPER-TAZO 2.25 GM (PMX) 50 ML IVPB SCH ×2 (06:34→14:48)
[2019-03-29] MEDS: METOCLOPRAMIDE 5 MG TAB PO SCH (06:34)
[2019-03-29] MEDS: CALCIUM ACETATE 667 MG CAP PO SCH ×3 (07:35→17:35)
--- NOTE | 2019-03-29 07:55 | CONS ---
Assessment/Plan Assessment/Plan Problems: (1) Essential (primary) hypertension Status: Chronic Comment: controlled (2) Peripheral vascular disease of lower extremity Status: Chronic Comment: s/p FPBPG (3) Leukocytosis Status: Acute Comment: progressive, with elevation in PC as well... CXR yesterday looks worse to me, re: consolidation Rt chest (4) Acute respiratory failure with hypoxia Status: Acute Comment: on BiPaP.. progressive PNA.. will dialyze AGAIN today, on the chance fluid component as well (5) Acute on chronic renal failure Status: Acute Comment: for HD #3 today Consultation Date/Type/Reason Admit Date/Time Mar 23, 2019 at 06:13 Type of Consult Nephrology Date/Time of Note DATE: 03/29/19 TIME: 07:49 Hx of Present Illness worse overnight.. back on BiPap Exam/Review of Systems Vital Signs Vitals Vital Signs Date Temp Pulse Resp B/P (MAP) Pulse Ox O2 O2 Flow FiO2 Time Delivery Rate 03/29/19 81 21 120/58 98 BIPAP 06:00 (78) 03/29/19 100 05:30 03/29/19 98.6 04:00 03/28/19 8.0 13:25 Intake and Output 03/28/19 03/28/19 03/29/19 1515:00 23:00 07:00 IntakeIntake Total 290 ml 660 ml 60 ml OutputOutput Total 3640 ml 20 ml 30 ml BalanceBalance -3350 ml 640 ml 30 ml Exam Constitutional: other (lethargic, on BiPap) Neck: supple Respiratory: crackles/rales Cardiovascular: regular rate and rhythm Gastrointestinal: soft, nl liver, spleen Extremities: edema (none) Labs Result Diagram: 03/29/19 0450 03/29/19 0450 Results 24hrs Laboratory Tests Test 03/28/19 08:08 03/28/19 12:45 03/28/19 13:17 03/28/19 20:54 Bedside Glucose 126 90 120 Lactic Acid Level 1.4 Procalcitonin 3.39 H Test 03/28/19 23:37 03/29/19 04:50 Sodium Level 139 139 Potassium Level 4.0 3.8 Chloride Level 101 100 Carbon Dioxide Level 22 21 Anion Gap 16 H 18 H Blood Urea Nitrogen 41 H 44 H Creatinine 4.40 #H 5.00 H Est Glomerular 13 L 12 L Filtrat Rate mL/min Glucose Level 135 149 Calcium Level 8.6 8.5 White Blood Count 19.9 #H Red Blood Count 3.02 L Hemoglobin 8.8 L Hematocrit 27.3 L Mean Corpuscular 90.4 Volume Mean Corpuscular 29.1 Hemoglobin Mean Corpuscular 32.2 Hemoglobin Concent Red Cell 14.4 Distribution Width Platelet Count 400 Mean Platelet Volume 9.8 Immature 1.000 H Granulocytes % Neutrophils % 92.4 H Lymphocytes % 2.2 L Monocytes % 4.3 Eosinophils % 0.0 Basophils % 0.1 Nucleated Red Blood 0.3 H Cells % Immature 0.200 H Granulocytes # Neutrophils # 18.4 H Lymphocytes # 0.4 L Monocytes # 0.9 Eosinophils # 0.0 Basophils # 0.0 Nucleated Red Blood 0.1 H Cells # Total Bilirubin 0.3 Direct Bilirubin 0.00 Indirect Bilirubin 0.3 Aspartate Amino 44 Transf (AST/SGOT) Alanine 19 Aminotransferase (AL T/SGPT) Alkaline Phosphatase 97 Total Protein 6.1 Albumin 3.0 L Globulin 3.10 Albumin/Globulin 0.96 Ratio Procalcitonin 5.92 H Medications Medications Current Medications Albuterol (Proventil 0.083% (Neb)) 2.5 mg ICU RECOVERY PRN HHN .WHEEZING; Start 03/23/19 at 11:30 Aspirin (Aspirin) 325 mg DAILY PO Last administered on 03/28/19 12:38; Admin Dose 325 MG; Start 03/24/19 at 09:00 Amlodipine Besylate (Norvasc) 5 mg DAILY PO Last administered on 03/28/19 12:39; Admin Dose 5 MG; Start 03/24/19 at 09:00 Atorvastatin Calcium (Lipitor) 40 mg QHS PO Last administered on 03/28/19 20:48; Admin Dose 40 MG; Start 03/23/19 at 21:00 Carvedilol (Coreg) 12.5 mg BID PO Last administered on 03/28/19 20:48; Admin Dose 12.5 MG; Start 03/23/19 at 21:00 Linagliptin (Tradjenta) 5 mg DAILY PO Last administered on 03/28/19 12:38; Admin Dose 5 MG; Start 03/24/19 at 09:00 Metoclopramide HCl (Reglan) 5 mg AC MEALS PO Last administered on 03/28/19 12:39; Admin Dose 5 MG; Start 03/23/19 at 17:05 Ranitidine HCl (Zantac) 150 mg DAILY PO Last administered on 03/28/19 12:38; Admin Dose 150 MG; Start 03/24/19 at 09:00 Ondansetron HCl (Zofran Inj) 4 mg Q4H PRN IV NAUSEA AND/OR VOMITING Last administered on 03/28/19 20:28; Admin Dose 4 MG; Start 03/23/19 at 18:00 Metoclopramide HCl (Reglan) 10 mg Q6H PRN IV NAUSEA Last administered on 03/27/19 08:40; Admin Dose 10 MG; Start 03/23/19 at 18:00 Diagnostic Test (Pha) (Accu-Chek) 1 ea Q4 XX Last administered on 03/28/19 20:56; Admin Dose 1 EA; Start 03/23/19 at 21:00 Insulin Aspart (Novolog Insulin Pen) NOVOLOG *MILD* ALGORITHM WITH MEALS BEDTIM E SC Last administered on 03/24/19 17:11; Admin Dose 1 UNIT; Start 03/23/19 at 21:00 Hydromorphone HCl (Dilaudid) 2 mg Q4H PRN IV SEVERE PAIN LEVEL 7-10 Last administered on 03/28/19 08:21; Admin Dose 2 MG; Start 03/23/19 at 18:00 Miscellaneous Information 1 ea NOTE XX ; Start 03/23/19 at 18:30 Glucose (Glutose) 15 gm Q15M PRN PO DECREASED GLUCOSE; Start 03/23/19 at 18:30 Glucose (Glutose) 22.5 gm Q15M PRN PO DECREASED GLUCOSE; Start 03/23/19 at 18:30 Dextrose (D50w Syringe) 25 ml Q15M PRN IV DECREASED GLUCOSE; Start 03/23/19 at 18:30 Dextrose (D50w Syringe) 50 ml Q15M PRN IV DECREASED GLUCOSE; Start 03/23/19 at 18:30 Glucagon (Glucagen) 1 mg Q15M PRN IM DECREASED GLUCOSE; Start 03/23/19 at 18:30 Glucose (Glutose) 15 gm Q15M PRN BUCCAL DECREASED GLUCOSE; Start 03/23/19 at 18:30 Epoetin Joseph-epbx (Retacrit (Esrd)) 10,000 unit TuThSa@1700 SC Last administered on 03/28/19 18:14; Admin Dose 10,000 UNIT; Start 03/24/19 at 17:00 Acetaminophen/ Hydrocodone Bitart ([place] (5/325)) 1 tab Q6H PRN PO .MOD PAIN 4- 6 Last administered on 03/25/19 14:33; Admin Dose 1 TAB; Start 03/24/19 at 22:30 Vancomycin HCl (Vanco Iv Per Pharmacy) VANCOMYCIN PER PHARMACY PER PROTOCOL XX ; Start 03/25/19 at 14:30 Piperacillin Sod/ Tazobactam Sod 50 ml @ 100 mls/hr Q8 IVPB Last administered on 03/29/19 06:34; Admin Dose 100 MLS/HR; Start 03/25/19 at 15:00 Calcium Acetate (Phoslo) 667 mg WITH MEALS PO Last administered on 03/28/19 12:38; Admin Dose 667 MG; Start 03/26/19 at 12:00 Albumin Human 100 ml @ 100 mls/hr WITH DIALYSIS PRN IV SBP <90 DURING DIALYSIS Last administered on 03/27/19 16:25; Admin Dose 100 MLS/HR; Start 03/27/19 at 12:00 Albuterol/ Ipratropium (Duoneb) 3 ml Q4HWA RESP THERAPY HHN Last administered on 03/28/19 20:21; Admin Dose 3 ML; Start 03/27/19 at 21:00 Heparin Sodium (Porcine) (Heparin (1000 Units/ml)) 3,000 unit AFTER DIALYSIS CATHETER Last administered on 03/28/19 12:00; Admin Dose 3,000 UNIT; Start 03/28/19 at 09:30 Magnesium Hydroxide (Milk Of Mag) 30 ml DAILY PRN PO CONSTIPATION Last administered on 03/28/19 20:48; Admin Dose 30 ML; Start 03/28/19 at 15:30 Sodium Biphosphate/ Sodium Phosphate (Fleet Enema) 133 ml DAILY PRN [place] CONSTIPATION; Start 03/28/19 at 15:30 RADHA BEAN MD Mar 29, 2019 07:55
[2019-03-29] MEDS: ALBUTEROL/IPRATROPIUM (NEB) 3 ML AMP HHN SCH ×4 (08:02→21:03)
[2019-03-29] MEDS: LINAGLIPTIN 5 MG TABLET PO SCH (09:00)
[2019-03-29] MEDS: RANITIDINE 150 MG TAB PO SCH (09:00)
[2019-03-29] MEDS: AMLODIPINE 5 MG TAB PO SCH (09:00)
[2019-03-29] MEDS: ASPIRIN 325 MG TAB PO SCH (09:00)
[2019-03-29] MEDS: INSULIN ASPART [NOVOLOG] 3 ML PEN SC SCH ×4 (09:00→21:00)
[2019-03-29] MEDS: ALBUMIN HUMAN 25% 100 ML IV PRN (10:43)
[2019-03-29] MEDS ORDERED: ALTEPLASE (CATHFLO) 2 MG INJ CATHETER ONE (11:30)
--- NOTE | 2019-03-29 15:34 | CONS ---
Assessment/Plan Assessment/Plan Hospital Course (Demo Recall) Acute respiratory failure Acute kidney injury on hemodialysis Peripheral arterial disease status post bypass Hypertension Preserved left ventricular ejection fraction echocardiogram January 2019 Fluid management via hemodialysis as per nephrology Troponins minimally elevated but still in normal range with no significant ECG abnormalities Continue statin and aspirin therapy if able to take p.o. Consultation Date/Type/Reason Admit Date/Time Mar 23, 2019 at 06:13 Initial Consult Date 03/28/19 Type of Consult Cardiology Requesting Provider: JOSE PARRY MD Date/Time of Note DATE: 03/29/19 TIME: 15:32 24 HR Interval Summary Free Text/Dictation Denies chest pain, points to pain in abdomen Exam/Review of Systems Vital Signs Vitals Vital Signs Date Temp Pulse Resp B/P (MAP) Pulse Ox O2 O2 Flow FiO2 Time Delivery Rate 03/29/19 77 18 130/58 100 BIPAP 13:18 (82) 03/29/19 85 13:18 03/29/19 98.3 12:00 03/28/19 8.0 13:25 Intake and Output 03/28/19 03/28/19 03/29/19 1515:00 23:00 07:00 IntakeIntake Total 290 ml 660 ml 60 ml OutputOutput Total 3640 ml 20 ml 30 ml BalanceBalance -3350 ml 640 ml 30 ml Exam Constitutional: alert (On BiPAP, undergoing hemodialysis) Head: normocephalic Respiratory: other (Coarse breath sounds bilaterally, scattered rhonchi) Cardiovascular: regular rate and rhythm (S1-S2 heard) Gastrointestinal: soft, non-tender, bowel sounds Extremities: edema Labs Result Diagram: 03/29/19 0450 03/29/19 0450 Results 24hrs Laboratory Tests Test 03/28/19 18:10 03/28/19 20:54 03/28/19 23:37 03/29/19 04:50 Bedside Glucose 110 120 Sodium Level 139 139 Potassium Level 4.0 3.8 Chloride Level 101 100 Carbon Dioxide 22 21 Level Anion Gap 16 H 18 H Blood Urea 41 H 44 H Nitrogen Creatinine 4.40 #H 5.00 H Est Glomerular 13 L 12 L Filtrat Rate mL/min Glucose Level 135 149 Calcium Level 8.6 8.5 White Blood Count 19.9 #H Red Blood Count 3.02 L Hemoglobin 8.8 L Hematocrit 27.3 L Mean Corpuscular 90.4 Volume Mean Corpuscular 29.1 Hemoglobin Mean Corpuscular 32.2 Hemoglobin Concen t Red Cell 14.4 Distribution Width Platelet Count 400 Mean Platelet 9.8 Volume Immature 1.000 H Granulocytes % Neutrophils % 92.4 H Lymphocytes % 2.2 L Monocytes % 4.3 Eosinophils % 0.0 Basophils % 0.1 Nucleated Red 0.3 H Blood Cells % Immature 0.200 H Granulocytes # Neutrophils # 18.4 H Lymphocytes # 0.4 L Monocytes # 0.9 Eosinophils # 0.0 Basophils # 0.0 Nucleated Red 0.1 H Blood Cells # Total Bilirubin 0.3 Direct Bilirubin 0.00 Indirect 0.3 Bilirubin Aspartate Amino 44 Transf (AST/SGOT) Alanine 19 Aminotransferase (ALT/SGPT) Alkaline 97 Phosphatase Total Protein 6.1 Albumin 3.0 L Globulin 3.10 Albumin/Globulin 0.96 Ratio Procalcitonin 5.92 H Test 03/29/19 08:00 03/29/19 09:56 03/29/19 13:39 Blood Gas Blood arterial Specimen Source Arterial Blood 03/29/2019 8:30:2 Date Drawn 2 AM Arterial Blood pH 7.403 (Temp corrected) Arterial Blood 32.5 L pCO2 (Temp correct) Arterial Blood 76.7 L pO2 (Temp corrected) Arterial Blood 19.8 L HCO3 Arterial Blood -4.3 L Base Excess Arterial Blood 94.6 L Oxygen Saturation Lyle Test ACCEPTAB Arterial Blood Right Radial Gas Puncture Site Arterial 0.3 Blood Carboxyhemo globin Arterial Blood 0.2 Methemoglobin Blood Gas A-a O2 531.7 H Differential Oxyhemoglobin 94.1 Percent Blood Gas 37.0 Temperature Blood Gas 16.0 Respiration Rate Blood Gas Actual 18 Respiration Rate Blood Gas MASK - BIPAP Modality FiO2 90.0 Blood Gas 10 Pressure Support Blood Gas 15/5 IPAP/EPAP Ratio Blood Gas DT Notified Whom Blood Gas 03/29/2019 8:49:3 Notified Time 2 AM Bedside Glucose 142 116 Medications Medications Current Medications Albuterol (Proventil 0.083% (Neb)) 2.5 mg ICU RECOVERY PRN HHN .WHEEZING; Start 03/23/19 at 11:30 Aspirin (Aspirin) 325 mg DAILY PO Last administered on 03/28/19at 12:38; Admin Dose 325 MG; Start 03/24/19 at 09:00 Amlodipine Besylate (Norvasc) 5 mg DAILY PO Last administered on 03/28/19 12:39; Admin Dose 5 MG; Start 03/24/19 at 09:00 Atorvastatin Calcium (Lipitor) 40 mg QHS PO Last administered on 03/28/19 20:48; Admin Dose 40 MG; Start 03/23/19 at 21:00 Carvedilol (Coreg) 12.5 mg BID PO Last administered on 03/28/19 20:48; Admin Dose 12.5 MG; Start 03/23/19 at 21:00 Linagliptin (Tradjenta) 5 mg DAILY PO Last administered on 03/28/19 12:38; Admin Dose 5 MG; Start 03/24/19 at 09:00 Ranitidine HCl (Zantac) 150 mg DAILY PO Last administered on 03/28/19 12:38; Admin Dose 150 MG; Start 03/24/19 at 09:00 Ondansetron HCl (Zofran Inj) 4 mg Q4H PRN IV NAUSEA AND/OR VOMITING Last administered on 03/28/19 20:28; Admin Dose 4 MG; Start 03/23/19 at 18:00 Metoclopramide HCl (Reglan) 10 mg Q6H PRN IV NAUSEA Last administered on 03/27/19 08:40; Admin Dose 10 MG; Start 03/23/19 at 18:00 Diagnostic Test (Pha) (Accu-Chek) 1 ea Q4 XX Last administered on 03/29/19 13:00; Admin Dose 1 EA; Start 03/23/19 at 21:00 Hydromorphone HCl (Dilaudid) 2 mg Q4H PRN IV SEVERE PAIN LEVEL 7-10 Last administered on 03/28/19 08:21; Admin Dose 2 MG; Start 03/23/19 at 18:00 Miscellaneous Information 1 ea NOTE XX ; Start 03/23/19 at 18:30 Glucose (Glutose) 15 gm Q15M PRN PO DECREASED GLUCOSE; Start 03/23/19 at 18:30 Glucose (Glutose) 22.5 gm Q15M PRN PO DECREASED GLUCOSE; Start 03/23/19 at 18:30 Dextrose (D50w Syringe) 25 ml Q15M PRN IV DECREASED GLUCOSE; Start 03/23/19 at 18:30 Dextrose (D50w Syringe) 50 ml Q15M PRN IV DECREASED GLUCOSE; Start 03/23/19 at 18:30 Glucagon (Glucagen) 1 mg Q15M PRN IM DECREASED GLUCOSE; Start 03/23/19 at 18:30 Glucose (Glutose) 15 gm Q15M PRN BUCCAL DECREASED GLUCOSE; Start 03/23/19 at 18:30 Epoetin Joseph-epbx (Retacrit (Esrd)) 10,000 unit TuThSa@1700 SC Last administered on 03/28/19 18:14; Admin Dose 10,000 UNIT; Start 03/24/19 at 17:00 Acetaminophen/ Hydrocodone Bitart ([place] (5325)) 1 tab Q6H PRN PO .MOD PAIN 4- 6 Last administered on 03/25/19 14:33; Admin Dose 1 TAB; Start 03/24/19 at 22:30 Vancomycin HCl (Vanco Iv Per Pharmacy) VANCOMYCIN PER PHARMACY PER PROTOCOL XX ; Start 03/25/19 at 14:30 Piperacillin Sod/ Tazobactam Sod 50 ml @ 100 mls/hr Q8 IVPB Last administered on 03/29/19 14:48; Admin Dose 100 MLS/HR; Start 03/25/19 at 15:00 Calcium Acetate (Phoslo) 667 mg WITH MEALS PO Last administered on 03/28/19 12:38; Admin Dose 667 MG; Start 03/26/19 at 12:00 Albumin Human 100 ml @ 100 mls/hr WITH DIALYSIS PRN IV SBP <90 DURING DIALYSIS Last administered on 03/29/19 10:43; Admin Dose 100 MLS/HR; Start 03/27/19 at 12:00 Albuterol/ Ipratropium (Duoneb) 3 ml Q4HWA RESP THERAPY HHN Last administered on 03/29/19 13:24; Admin Dose 3 ML; Start 03/27/19 at 21:00 Heparin Sodium (Porcine) (Heparin (1000 Units/ml)) 3,000 unit AFTER DIALYSIS CATHETER Last administered on 03/28/19 12:00; Admin Dose 3,000 UNIT; Start 03/28/19 at 09:30 Magnesium Hydroxide (Milk Of Mag) 30 ml DAILY PRN PO CONSTIPATION Last administered on 03/28/19 20:48; Admin Dose 30 ML; Start 03/28/19 at 15:30 Sodium Biphosphate/ Sodium Phosphate (Fleet Enema) 133 ml DAILY PRN [place] CONSTIPATION Last administered on 03/29/19at 14:30; Admin Dose 133 ML; Start 03/28/19 at 15:30 Diagnostic Test (Pha) (Accu-Chek) 1 ea 02 XX ; Start 03/30/19 at 02:00 Insulin Aspart (Novolog Insulin Pen) NOVOLOG *MILD* ALGORI... Q4 SC ; Start 03/29/19 at 09:00 Heparin Sodium (Porcine) (Heparin (5000 Units/1ml)) 5,000 unit BID SC ; Start 03/29/19 at 21:00 Metoclopramide HCl (Reglan) 5 mg Q6 IV ; Start 03/29/19 at 18:00 Miscellaneous Information (*Rx Drug Level Order Reminder*) VANCO RANDOM @ 0,500 0500 ONCE XX ; Start 03/30/19 at 05:00; Stop 03/30/19 at 05:01 Jose Richard DO Mar 29, 2019 15:34
--- NOTE | 2019-03-29 15:48 | CONS ---
[facility] HCIS Consult Follow-up Patient Name: Cameron Neal Unit Number: [id number] Date of : 1950 Patient Status: Admitted Inpatient Attending Doctor: Cullen Monaco MD Edit: LUDMILA CARRILLO M.D. on 03/30/19 @ 16:54 Gerardo: I discussed the management with SHAMPOO PERSON Amanda and agree Assessment/Plan Assessment/Plan Hospital Course (Demo Recall) assessment/impression - acute hypoxic resp failure, probably multifactorial: first, fluid overload. Pt's oxygenation improved after undergoing dialysis and so fluid overload is a significant factor. Second, I suspect aspiration pneumonia/pneumonitis. Pt reportedly was having spells of congested cough upon arrival at ICU. Pt has h/o "excessive saliva production" since 08/2018 according to Pt's family member. This increases a risk of aspiration pneumonia and/or pneumonitis. 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 Carrillo recommended to Pt's daughter in law f/u with his PMD or GI specialist - Ordered procalcitonin for am. management d/w VIC Hardy, and with Dr. Carrillo. Total critical care time spent: 45 min. Consultation Date/Type/Reason Admit Date/Time Mar 23, 2019 at 06:13 Initial Consult Date 03/28/19 Type of Consult ID Requesting Provider: JOSE PARRY MD Date/Time of Note DATE: 03/29/19 TIME: 15:42 24 HR Interval Summary Free Text/Dictation Fio2 titrated from 100%, now at 75%. WBC increased 19.9. procalc increased 5.92. CXR showed worsening infiltrates R>L d/w VIC Hardy. Pt was disimpacted earlier with evacuation of some stool. HD this am removed 3.2 L Pt was mainly nonverbal during assessment. Exam/Review of Systems Exam Vitals Vital Signs Date Temp Pulse Resp B/P (MAP) Pulse Ox O2 O2 Flow FiO2 Time Delivery Rate 03/29/19 77 18 130/58 100 BIPAP 13:18 (82) 03/29/19 85 13:18 03/29/19 98.3 12:00 03/28/19 8.0 13:25 Allergies Coded Allergies No Known Allergy (Unverified03/23/19) Intake and Output 03/28/19 03/28/19 03/29/19 1515:00 23:00 07:00 IntakeIntake Total 290 ml 660 ml 60 ml OutputOutput Total 3640 ml 20 ml 30 ml BalanceBalance -3350 ml 640 ml 30 ml Constitutional: non-verbal, frail, other (sleeping, opened eyes, did not speak, follows simple commands ) Psych: other (patt) Head: normocephalic, atraumatic Eyes: nl conjunctiva, nl lids, nl sclera ENMT: nl external ears & nose, nl nasal mucosa & septum, other (op dry [bipap on]) Neck: supple, non-tender Respiratory: clear to auscultation, diminished breath sounds, other (on bipap fio2 75%); No wheezing Cardiovascular: regular rate and rhythm, nl pulses Gastrointestinal: soft, non-tender Musculoskeletal: nl extremities to inspection, other (gangrene R 1st and 2nd toes, s/p amputation of R 5th toe - reviewed nsg notes and pics - foot is wraped in a c/d/i kerlix dressing) Extremities: normal pulses, other (RLE thigh and calve dressings are c/d/i); No edema Neurological: lethargic Skin: ecchymosis Results Result Diagram: 03/29/19 0450 03/29/19 0450 Results 24hrs Laboratory Tests Test 03/28/19 18:10 03/28/19 20:54 03/28/19 23:37 03/29/19 04:50 Bedside Glucose 110 120 Sodium Level 139 139 Potassium Level 4.0 3.8 Chloride Level 101 100 Carbon Dioxide 22 21 Level Anion Gap 16 H 18 H Blood Urea 41 H 44 H Nitrogen Creatinine 4.40 #H 5.00 H Est Glomerular 13 L 12 L Filtrat Rate mL/min Glucose Level 135 149 Calcium Level 8.6 8.5 White Blood Count 19.9 #H Red Blood Count 3.02 L Hemoglobin 8.8 L Hematocrit 27.3 L Mean Corpuscular 90.4 Volume Mean Corpuscular 29.1 Hemoglobin Mean Corpuscular 32.2 Hemoglobin Concen t Red Cell 14.4 Distribution Width Platelet Count 400 Mean Platelet 9.8 Volume Immature 1.000 H Granulocytes % Neutrophils % 92.4 H Lymphocytes % 2.2 L Monocytes % 4.3 Eosinophils % 0.0 Basophils % 0.1 Nucleated Red 0.3 H Blood Cells % Immature 0.200 H Granulocytes # Neutrophils # 18.4 H Lymphocytes # 0.4 L Monocytes # 0.9 Eosinophils # 0.0 Basophils # 0.0 Nucleated Red 0.1 H Blood Cells # Total Bilirubin 0.3 Direct Bilirubin 0.00 Indirect 0.3 Bilirubin Aspartate Amino 44 Transf (AST/SGOT) Alanine 19 Aminotransferase (ALT/SGPT) Alkaline 97 Phosphatase Total Protein 6.1 Albumin 3.0 L Globulin 3.10 Albumin/Globulin 0.96 Ratio Procalcitonin 5.92 H Test 03/29/19 08:00 03/29/19 09:56 03/29/19 13:39 Blood Gas Blood arterial Specimen Source Arterial Blood 03/29/2019 8:30:2 Date Drawn 2 AM Arterial Blood pH 7.403 (Temp corrected) Arterial Blood 32.5 L pCO2 (Temp correct) Arterial Blood 76.7 L pO2 (Temp corrected) Arterial Blood 19.8 L HCO3 Arterial Blood -4.3 L Base Excess Arterial Blood 94.6 L Oxygen Saturation Lyle Test ACCEPTAB Arterial Blood Right Radial Gas Puncture Site Arterial 0.3 Blood Carboxyhemo globin Arterial Blood 0.2 Methemoglobin Blood Gas A-a O2 531.7 H Differential Oxyhemoglobin 94.1 Percent Blood Gas 37.0 Temperature Blood Gas 16.0 Respiration Rate Blood Gas Actual 18 Respiration Rate Blood Gas MASK - BIPAP Modality FiO2 90.0 Blood Gas 10 Pressure Support Blood Gas 15/5 IPAP/EPAP Ratio Blood Gas DT Notified Whom Blood Gas 03/29/2019 8:49:3 Notified Time 2 AM Bedside Glucose 142 116 Imaging Imaging CXR 03/29/19 IMPRESSION: Worsening bilateral perihilar alveolar infiltrates, right greater than left. Rule out progression pneumonia versus alveolar edema. Abd XR 03/28/19 IMPRESSION: 1. Amount of fecal debris in the colon confirms the clinical suspicion of constipation without evidence for acute intra-abdominal abnormality. 2. Left inguinal approach central venous access catheter is in satisfactory position. Repeat CXR 03/28/19 IMPRESSION: Mild interval improvement in pulmonary edema pattern involving the right greater than left lung compared to earlier the same day with stable small bilateral pleural effusions. Consider follow-up evaluation. Medications Medication Current Medications Albuterol (Proventil 0.083% (Neb)) 2.5 mg ICU RECOVERY PRN HHN .WHEEZING; Start 03/23/19 at 11:30 Aspirin (Aspirin) 325 mg DAILY PO Last administered on 03/28/19 12:38; Admin Dose 325 MG; Start 03/24/19 at 09:00 Amlodipine Besylate (Norvasc) 5 mg DAILY PO Last administered on 03/28/19 12:39; Admin Dose 5 MG; Start 03/24/19 at 09:00 Atorvastatin Calcium (Lipitor) 40 mg QHS PO Last administered on 03/28/19 20:48; Admin Dose 40 MG; Start 03/23/19 at 21:00 Carvedilol (Coreg) 12.5 mg BID PO Last administered on 03/28/19 20:48; Admin Dose 12.5 MG; Start 03/23/19 at 21:00 Linagliptin (Tradjenta) 5 mg DAILY PO Last administered on 03/28/19 12:38; Admin Dose 5 MG; Start 03/24/19 at 09:00 Ranitidine HCl (Zantac) 150 mg DAILY PO Last administered on 03/28/19 12:38; Admin Dose 150 MG; Start 03/24/19 at 09:00 Ondansetron HCl (Zofran Inj) 4 mg Q4H PRN IV NAUSEA AND/OR VOMITING Last administered on 03/28/19 20:28; Admin Dose 4 MG; Start 03/23/19 at 18:00 Metoclopramide HCl (Reglan) 10 mg Q6H PRN IV NAUSEA Last administered on 03/27/19 08:40; Admin Dose 10 MG; Start 03/23/19 at 18:00 Diagnostic Test (Pha) (Accu-Chek) 1 ea Q4 XX Last administered on 03/29/19 13:00; Admin Dose 1 EA; Start 03/23/19 at 21:00 Hydromorphone HCl (Dilaudid) 2 mg Q4H PRN IV SEVERE PAIN LEVEL 7-10 Last administered on 03/28/19 08:21; Admin Dose 2 MG; Start 03/23/19 at 18:00 Miscellaneous Information 1 ea NOTE XX ; Start 03/23/19 at 18:30 Glucose (Glutose) 15 gm Q15M PRN PO DECREASED GLUCOSE; Start 03/23/19 at 18:30 Glucose (Glutose) 22.5 gm Q15M PRN PO DECREASED GLUCOSE; Start 03/23/19 at 18:30 Dextrose (D50w Syringe) 25 ml Q15M PRN IV DECREASED GLUCOSE; Start 03/23/19 at 18:30 Dextrose (D50w Syringe) 50 ml Q15M PRN IV DECREASED GLUCOSE; Start 03/23/19 at 18:30 Glucagon (Glucagen) 1 mg Q15M PRN IM DECREASED GLUCOSE; Start 03/23/19 at 18:30 Glucose (Glutose) 15 gm Q15M PRN BUCCAL DECREASED GLUCOSE; Start 03/23/19 at 18:30 Epoetin Joseph-epbx (Retacrit (Esrd)) 10,000 unit TuThSa@1700 SC Last administered on 03/28/19 18:14; Admin Dose 10,000 UNIT; Start 03/24/19 at 17:00 Acetaminophen/ Hydrocodone Bitart ([place] (5/325)) 1 tab Q6H PRN PO .MOD PAIN 4- 6 Last administered on 03/25/19 14:33; Admin Dose 1 TAB; Start 03/24/19 at 22:30 Vancomycin HCl (Vanco Iv Per Pharmacy) VANCOMYCIN PER PHARMACY PER PROTOCOL XX ; Start 03/25/19 at 14:30 Piperacillin Sod/ Tazobactam Sod 50 ml @ 100 mls/hr Q8 IVPB Last administered on 03/29/19 14:48; Admin Dose 100 MLS/HR; Start 03/25/19 at 15:00 Calcium Acetate (Phoslo) 667 mg WITH MEALS PO Last administered on 03/28/19 12:38; Admin Dose 667 MG; Start 03/26/19 at 12:00 Albumin Human 100 ml @ 100 mls/hr WITH DIALYSIS PRN IV SBP <90 DURING DIALYSIS Last administered on 03/29/19 10:43; Admin Dose 100 MLS/HR; Start 03/27/19 at 12:00 Albuterol/ Ipratropium (Duoneb) 3 ml Q4HWA RESP THERAPY HHN Last administered on 03/29/19 13:24; Admin Dose 3 ML; Start 03/27/19 at 21:00 Heparin Sodium (Porcine) (Heparin (1000 Units/ml)) 3,000 unit AFTER DIALYSIS CATHETER Last administered on 03/28/19 12:00; Admin Dose 3,000 UNIT; Start 03/28/19 at 09:30 Magnesium Hydroxide (Milk Of Mag) 30 ml DAILY PRN PO CONSTIPATION Last administered on 03/28/19 20:48; Admin Dose 30 ML; Start 03/28/19 at 15:30 Sodium Biphosphate/ Sodium Phosphate (Fleet Enema) 133 ml DAILY PRN [place] CONSTIPATION Last administered on 03/29/19 14:30; Admin Dose 133 ML; Start 03/28/19 at 15:30 Diagnostic Test (Pha) (Accu-Chek) 1 ea 02 XX ; Start 03/30/19 at 02:00 Insulin Aspart (Novolog Insulin Pen) NOVOLOG *MILD* ALGORI... Q4 SC ; Start 03/29/19 at 09:00 Heparin Sodium (Porcine) (Heparin (5000 Units/1ml)) 5,000 unit BID SC ; Start 03/29/19 at 21:00 Metoclopramide HCl (Reglan) 5 mg Q6 IV ; Start 03/29/19 at 18:00 Miscellaneous Information (*Rx Drug Level Order Reminder*) VANCO RANDOM @ 0,500 0500 ONCE XX ; Start 03/30/19 at 05:00; Stop 03/30/19 at 05:01 MORRIS ALEXANDRA NP Mar 29, 2019 15:48
--- NOTE | 2019-03-29 15:52 | PN ---
Date/Time of Note Date/Time of Note DATE: 03/29/19 TIME: 15:38 Assessment/Plan VTE Prophylaxis Risk score (from [facility])>0 risk: 11 SCD applied (from [facility]): Yes Pharmacological prophylaxis: other Pharm contraindication: hemorrhagic infarct, other Lines/Catheters IV Catheter Type (from [facility] [place]): [place] Central line still needed: Yes Urinary Cath still in place: Yes Reason Cath still needed: urinary retention Assessment/Plan Problems: (1) Acute respiratory failure with hypoxia Status: Acute Comment: Worsening CXR findings, with increased leukocytosis suggestive of worsening PNA but overall picture not clear (2) Constipation Status: Acute Comment: KUB confirms constipation without ileus. Manual disimpaction (3) Nausea Status: Acute Comment: KUB no ileus. Antiemetic. Symptoms may resolve with disimpaction. (4) Peripheral vascular disease of lower extremity Status: Chronic Comment: s/p revascularization (5) Type 2 diabetes mellitus with diabetic peripheral angiopathy with gangrene Status: Acute Comment: Good glycemic control at this time. Awaiting TMTA (6) Acute on chronic renal failure Status: Acute Comment: HD day #3 Result Diagram: 03/29/19 0450 03/29/19 0450 Results 24hrs Laboratory Tests Test 03/28/19 18:10 03/28/19 20:54 03/28/19 23:37 03/29/19 04:50 Bedside Glucose 110 120 Sodium Level 139 139 Potassium Level 4.0 3.8 Chloride Level 101 100 Carbon Dioxide 22 21 Level Anion Gap 16 H 18 H Blood Urea 41 H 44 H Nitrogen Creatinine 4.40 #H 5.00 H Est Glomerular 13 L 12 L Filtrat Rate mL/min Glucose Level 135 149 Calcium Level 8.6 8.5 White Blood Count 19.9 #H Red Blood Count 3.02 L Hemoglobin 8.8 L Hematocrit 27.3 L Mean Corpuscular 90.4 Volume Mean Corpuscular 29.1 Hemoglobin Mean Corpuscular 32.2 Hemoglobin Concen t Red Cell 14.4 Distribution Width Platelet Count 400 Mean Platelet 9.8 Volume Immature 1.000 H Granulocytes % Neutrophils % 92.4 H Lymphocytes % 2.2 L Monocytes % 4.3 Eosinophils % 0.0 Basophils % 0.1 Nucleated Red 0.3 H Blood Cells % Immature 0.200 H Granulocytes # Neutrophils # 18.4 H Lymphocytes # 0.4 L Monocytes # 0.9 Eosinophils # 0.0 Basophils # 0.0 Nucleated Red 0.1 H Blood Cells # Total Bilirubin 0.3 Direct Bilirubin 0.00 Indirect 0.3 Bilirubin Aspartate Amino 44 Transf (AST/SGOT) Alanine 19 Aminotransferase (ALT/SGPT) Alkaline 97 Phosphatase Total Protein 6.1 Albumin 3.0 L Globulin 3.10 Albumin/Globulin 0.96 Ratio Procalcitonin 5.92 H Test 03/29/19 08:00 03/29/19 09:56 03/29/19 13:39 Blood Gas Blood arterial Specimen Source Arterial Blood 03/29/2019 8:30:2 Date Drawn 2 AM Arterial Blood pH 7.403 (Temp corrected) Arterial Blood 32.5 L pCO2 (Temp correct) Arterial Blood 76.7 L pO2 (Temp corrected) Arterial Blood 19.8 L HCO3 Arterial Blood -4.3 L Base Excess Arterial Blood 94.6 L Oxygen Saturation Lyle Test ACCEPTAB Arterial Blood Right Radial Gas Puncture Site Arterial 0.3 Blood Carboxyhemo globin Arterial Blood 0.2 Methemoglobin Blood Gas A-a O2 531.7 H Differential Oxyhemoglobin 94.1 Percent Blood Gas 37.0 Temperature Blood Gas 16.0 Respiration Rate Blood Gas Actual 18 Respiration Rate Blood Gas MASK - BIPAP Modality FiO2 90.0 Blood Gas 10 Pressure Support Blood Gas 15/5 IPAP/EPAP Ratio Blood Gas DT Notified Whom Blood Gas 03/29/2019 8:49:3 Notified Time 2 AM Bedside Glucose 142 116 Subjective 24 Hr Interval Summary Free Text/Dictation Per patient breathing a little better, nausea a little better. Exam/Review of Systems Exam Vitals Vital Signs Date Temp Pulse Resp B/P (MAP) Pulse Ox O2 O2 Flow FiO2 Time Delivery Rate 03/29/19 77 18 130/58 100 BIPAP 13:18 (82) 03/29/19 85 13:18 03/29/19 98.3 12:00 03/28/19 8.0 13:25 Intake and Output 03/28/19 03/28/19 03/29/19 1515:00 23:00 07:00 IntakeIntake Total 290 ml 660 ml 60 ml OutputOutput Total 3640 ml 20 ml 30 ml BalanceBalance -3350 ml 640 ml 30 ml Exam Family at bedside Constitutional: alert, oriented ENMT: other (BIPAP mask in place) Respiratory: crackles/rales (right greater than left. ), wheezing (none) Cardiovascular: regular rate and rhythm Gastrointestinal: distended Extremities: other (warm to touch, bandage right foot) Results Results 24hrs Laboratory Tests Test 03/28/19 18:10 03/28/19 20:54 03/28/19 23:37 03/29/19 04:50 Bedside Glucose 110 120 Sodium Level 139 139 Potassium Level 4.0 3.8 Chloride Level 101 100 Carbon Dioxide 22 21 Level Anion Gap 16 H 18 H Blood Urea 41 H 44 H Nitrogen Creatinine 4.40 #H 5.00 H Est Glomerular 13 L 12 L Filtrat Rate mL/min Glucose Level 135 149 Calcium Level 8.6 8.5 White Blood Count 19.9 #H Red Blood Count 3.02 L Hemoglobin 8.8 L Hematocrit 27.3 L Mean Corpuscular 90.4 Volume Mean Corpuscular 29.1 Hemoglobin Mean Corpuscular 32.2 Hemoglobin Concen t Red Cell 14.4 Distribution Width Platelet Count 400 Mean Platelet 9.8 Volume Immature 1.000 H Granulocytes % Neutrophils % 92.4 H Lymphocytes % 2.2 L Monocytes % 4.3 Eosinophils % 0.0 Basophils % 0.1 Nucleated Red 0.3 H Blood Cells % Immature 0.200 H Granulocytes # Neutrophils # 18.4 H Lymphocytes # 0.4 L Monocytes # 0.9 Eosinophils # 0.0 Basophils # 0.0 Nucleated Red 0.1 H Blood Cells # Total Bilirubin 0.3 Direct Bilirubin 0.00 Indirect 0.3 Bilirubin Aspartate Amino 44 Transf (AST/SGOT) Alanine 19 Aminotransferase (ALT/SGPT) Alkaline 97 Phosphatase Total Protein 6.1 Albumin 3.0 L Globulin 3.10 Albumin/Globulin 0.96 Ratio Procalcitonin 5.92 H Test 03/29/19 08:00 03/29/19 09:56 03/29/19 13:39 Blood Gas Blood arterial Specimen Source Arterial Blood 03/29/2019 8:30:2 Date Drawn 2 AM Arterial Blood pH 7.403 (Temp corrected) Arterial Blood 32.5 L pCO2 (Temp correct) Arterial Blood 76.7 L pO2 (Temp corrected) Arterial Blood 19.8 L HCO3 Arterial Blood -4.3 L Base Excess Arterial Blood 94.6 L Oxygen Saturation Lyle Test ACCEPTAB Arterial Blood Right Radial Gas Puncture Site Arterial 0.3 Blood Carboxyhemo globin Arterial Blood 0.2 Methemoglobin Blood Gas A-a O2 531.7 H Differential Oxyhemoglobin 94.1 Percent Blood Gas 37.0 Temperature Blood Gas 16.0 Respiration Rate Blood Gas Actual 18 Respiration Rate Blood Gas MASK - BIPAP Modality FiO2 90.0 Blood Gas 10 Pressure Support Blood Gas 15/5 IPAP/EPAP Ratio Blood Gas DT Notified Whom Blood Gas 03/29/2019 8:49:3 Notified Time 2 AM Bedside Glucose 142 116 Imaging Imaging CXR and KUB results reviewed Medications Medication Current Medications Albuterol (Proventil 0.083% (Neb)) 2.5 mg ICU RECOVERY PRN HHN .WHEEZING; Start 03/23/19 at 11:30 Aspirin (Aspirin) 325 mg DAILY PO Last administered on 03/28/19 12:38; Admin Dose 325 MG; Start 03/24/19 at 09:00 Amlodipine Besylate (Norvasc) 5 mg DAILY PO Last administered on 03/28/19 12:39; Admin Dose 5 MG; Start 03/24/19 at 09:00 Atorvastatin Calcium (Lipitor) 40 mg QHS PO Last administered on 03/28/19 20:48; Admin Dose 40 MG; Start 03/23/19 at 21:00 Carvedilol (Coreg) 12.5 mg BID PO Last administered on 03/28/19 20:48; Admin D ose 12.5 MG; Start 03/23/19 at 21:00 Linagliptin (Tradjenta) 5 mg DAILY PO Last administered on 03/28/19 12:38; Admin Dose 5 MG; Start 03/24/19 at 09:00 Ranitidine HCl (Zantac) 150 mg DAILY PO Last administered on 03/28/19 12:38; Admin Dose 150 MG; Start 03/24/19 at 09:00 Ondansetron HCl (Zofran Inj) 4 mg Q4H PRN IV NAUSEA AND/OR VOMITING Last administered on 03/28/19 20:28; Admin Dose 4 MG; Start 03/23/19 at 18:00 Metoclopramide HCl (Reglan) 10 mg Q6H PRN IV NAUSEA Last administered on 08:40; Admin Dose 10 MG; Start 03/23/19 at 18:00 Diagnostic Test (Pha) (Accu-Chek) 1 ea Q4 XX Last administered on 03/29/19at 13:00; Admin Dose 1 EA; Start 03/23/19 at 21:00 Hydromorphone HCl (Dilaudid) 2 mg Q4H PRN IV SEVERE PAIN LEVEL 7-10 Last administered on 03/28/19 08:21; Admin Dose 2 MG; Start 03/23/19 at 18:00 Miscellaneous Information 1 ea NOTE XX ; Start 03/23/19 at 18:30 Glucose (Glutose) 15 gm Q15M PRN PO DECREASED GLUCOSE; Start 03/23/19 at 18:30 Glucose (Glutose) 22.5 gm Q15M PRN PO DECREASED GLUCOSE; Start 03/23/19 at 18:30 Dextrose (D50w Syringe) 25 ml Q15M PRN IV DECREASED GLUCOSE; Start 03/23/19 at 18:30 Dextrose (D50w Syringe) 50 ml Q15M PRN IV DECREASED GLUCOSE; Start 03/23/19 at 18:30 Glucagon (Glucagen) 1 mg Q15M PRN IM DECREASED GLUCOSE; Start 03/23/19 at 18:30 Glucose (Glutose) 15 gm Q15M PRN BUCCAL DECREASED GLUCOSE; Start 03/23/19 at 18:30 Epoetin Joseph-epbx (Retacrit (Esrd)) 10,000 unit TuThSa@1700 SC Last administered on 03/28/19at 18:14; Admin Dose 10,000 UNIT; Start 03/24/19 at 17:00 Acetaminophen/ Hydrocodone Bitart ([place] (5/325)) 1 tab Q6H PRN PO .MOD PAIN 4- 6 Last administered on 03/25/19at 14:33; Admin Dose 1 TAB; Start 03/24/19 at 22:30 Vancomycin HCl (Vanco Iv Per Pharmacy) VANCOMYCIN PER PHARMACY PER PROTOCOL XX ; Start 03/25/19 at 14:30 Piperacillin Sod/ Tazobactam Sod 50 ml @ 100 mls/hr Q8 IVPB Last administered on 03/29/19at 14:48; Admin Dose 100 MLS/HR; Start 03/25/19 at 15:00 Calcium Acetate (Phoslo) 667 mg WITH MEALS PO Last administered on 03/28/19at 12:38; Admin Dose 667 MG; Start 03/26/19 at 12:00 Albumin Human 100 ml @ 100 mls/hr WITH DIALYSIS PRN IV SBP <90 DURING DIALYSIS Last administered on 03/29/19 10:43; Admin Dose 100 MLS/HR; Start 03/27/19 at 12:00 Albuterol/ Ipratropium (Duoneb) 3 ml Q4HWA RESP THERAPY HHN Last administered on 03/29/19 13:24; Admin Dose 3 ML; Start 03/27/19 at 21:00 Heparin Sodium (Porcine) (Heparin (1000 Units/ml)) 3,000 unit AFTER DIALYSIS CATHETER Last administered on 03/28/19 12:00; Admin Dose 3,000 UNIT; Start 03/28/19 at 09:30 Magnesium Hydroxide (Milk Of Mag) 30 ml DAILY PRN PO CONSTIPATION Last administered on 03/28/19at 20:48; Admin Dose 30 ML; Start 03/28/19 at 15:30 Sodium Biphosphate/ Sodium Phosphate (Fleet Enema) 133 ml DAILY PRN SD CONSTIPATION Last administered on 03/29/19 14:30; Admin Dose 133 ML; Start 03/28/19 at 15:30 Diagnostic Test (Pha) (Accu-Chek) 1 ea 02 XX ; Start 03/30/19 at 02:00 Insulin Aspart (Novolog Insulin Pen) NOVOLOG *MILD* ALGORI... Q4 SC ; Start 03/29/19 at 09:00 Heparin Sodium (Porcine) (Heparin (5000 Units/1ml)) 5,000 unit BID SC ; Start 03/29/19 at 21:00 Metoclopramide HCl (Reglan) 5 mg Q6 IV ; Start 03/29/19 at 18:00 Miscellaneous Information (*Rx Drug Level Order Reminder*) VANCO RANDOM @ 0,500 0500 ONCE XX ; Start 03/30/19 at 05:00; Stop 03/30/19 at 05:01 OLIVIA FAN MD Mar 29, 2019 15:49
--- NOTE | 2019-03-29 16:14 | PN ---
DATE: 03/29/2019 SUBJECTIVE: Chart reviewed. Events noted. The patient desaturated last night. Back on BiPAP. Cur rently, saturating 97%. Dialysis is initiated today. PHYSICAL EXAMINATION: VITAL SIGNS: Blood pressure 121/60, pulse 79, respiration 19, temperature 98.3. HEENT: Pupils are equal and reactive to light. BiPAP in place. NECK: Supple, no JVD noted, no cervical adenopathy noted. LUNGS: Decreased breath sounds at the bases and rales and rhonchi bilaterally. CARDIOVASCULAR: S1, S2 normal. ABDOMEN: Soft, nontender. No masses noted. EXTREMITIES: No clubbing or cyanosis noted. NEUROLOGIC: Responsive. LABORATORY DATA: WBC 19.9, hemoglobin 8.8, hematocrit 27.3, platelets 400. Sodium 139, potassium 3. 8, chloride 100, CO2 21, BUN 44, creatinine 5.0, glucose 149. ABG shows pH of 7.40, pCO2 of 33, pO2 of 77 on BiPAP. IMAGING: Chest x-ray shows worsening bilateral perihilar alveolar infiltrate. IMPRESSION: 1. Acute hypoxemic respiratory failure requiring BiPAP support. 2. Acute on chronic renal failure, now requiring dialysis. 3. Peripheral vascular disease, status post revascularization. 4. Likely aspiration pneumonia as well. 5. Diabetes mellitus. 6. History of hypertension. 7. Benign prostatic hypertrophy. RECOMMENDATIONS: 1. Continue BiPAP for now. 2. Increase EPAP. 3. Continue oxygen. 4. Hemodialysis per nephrology. 5. Once x-ray shows resolution of congestive heart failure, probably will need CT scan of the chest to further evaluate perihilar infiltrate. 6. Above discussed with the staff in detail. Dictated By: RUTHIE KLEIN MD, MA/VIOLET Conf#: [id number] DID#: [id number] CC: WALTER LOWERY MD;*EndCC*
[2019-03-29] MEDS: MEROPENEM 500MG/50 ML (PMX) 50 ML IVPB SCH (18:36)
[2019-03-29] MEDS: METOCLOPRAMIDE 10 MG INJ IV SCH (18:37)
[2019-03-29] MEDS: ATORVASTATIN 40 MG TAB PO SCH (21:00)
[2019-03-29] MEDS: HEPARIN 5,000 UNIT/1 ML VIAL SC SCH (21:23)
[2019-03-30] VITALS (44 sets, daily range): BP systolic 101–154; BP diastolic 46–102; PULSE 67–85; RESP 12–23
[2019-03-30] MEDS: METOCLOPRAMIDE 10 MG INJ IV SCH ×4 (00:03→18:05)
[2019-03-30] MEDS: HYDROmorphONE 2 MG/ML SYG IV PRN (00:42)
[2019-03-30] MEDS: INSULIN ASPART [NOVOLOG] 3 ML PEN SC SCH ×6 (01:00→21:00)
[2019-03-30] MEDS: ACCU-CHEK XX SCH ×7 (01:00→21:13)
--- NOTE | 2019-03-30 08:20 | CONS ---
Assessment/Plan Assessment/Plan Assessment/Plan 1. CKD with now ARF sec to hemodynamic insult, will HD today. 2. Extensive pul infiltrates, with ? component of chf (as above), CXR is pending 3. DM, sugars noted 4. Anemia, stable 5. Will place order for PT Consultation Date/Type/Reason Admit Date/Time Mar 23, 2019 at 06:13 Type of Consult Nephrology Date/Time of Note DATE: 03/30/19 TIME: 08:17 Respiratory: No shortness of breath Cardiovascular: No chest pain Gastrointestinal: no complaints Genitourinary: other (short in place) Exam/Review of Systems Vital Signs Vitals Vital Signs Date Temp Pulse Resp B/P (MAP) Pulse Ox O2 O2 Flow FiO2 Time Delivery Rate 03/30/19 74 12 128/58 100 BIPAP 06:00 (81) 03/30/19 75 05:27 03/30/19 97.9 04:00 03/28/19 8.0 13:25 Intake and Output 03/29/19 03/29/19 03/30/19 1515:00 23:00 07:00 IntakeIntake Total 150 ml 100 ml 0 ml OutputOutput Total 4018 ml 10 ml 15 ml BalanceBalance -3868 ml 90 ml -15 ml Exam Neck: jvd (HJR is present) Respiratory: diminished breath sounds; No crackles/rales Cardiovascular: regular rate and rhythm Gastrointestinal: soft Extremities: edema (sacral edema is less) Labs Result Diagram: 03/30/19 0415 03/30/19 0415 Results 24hrs Laboratory Tests Test 03/29/19 09:56 03/29/19 13:39 03/29/19 17:34 03/29/19 21:31 Bedside Glucose 142 116 130 124 Test 03/30/19 00:44 03/30/19 04:15 03/30/19 05:17 03/30/19 05:37 Bedside Glucose 121 113 White Blood Count 14.4 #H Red Blood Count 2.84 L Hemoglobin 8.3 L Hematocrit 26.1 L Mean Corpuscular 91.9 Volume Mean Corpuscular 29.2 Hemoglobin Mean Corpuscular 31.8 L Hemoglobin Concen t Red Cell 14.8 H Distribution Width Platelet Count 345 Mean Platelet 10.1 Volume Immature 0.800 H Granulocytes % Neutrophils % 85.6 H Lymphocytes % 6.4 L Monocytes % 6.5 Eosinophils % 0.6 Basophils % 0.1 Nucleated Red 0.3 H Blood Cells % Immature 0.110 H Granulocytes # Neutrophils # 12.3 H Lymphocytes # 0.9 Monocytes # 0.9 Eosinophils # 0.1 Basophils # 0.0 Nucleated Red 0.1 H Blood Cells # Sodium Level 141 Potassium Level 3.6 Chloride Level 101 Carbon Dioxide 27 Level Anion Gap 13 Blood Urea 49 H Nitrogen Creatinine 5.80 H Est Glomerular 10 L Filtrat Rate mL/min Glucose Level 109 # Calcium Level 8.5 Total Bilirubin 0.3 Direct Bilirubin 0.00 Indirect 0.3 Bilirubin Aspartate Amino 28 Transf (AST/SGOT) Alanine 24 Aminotransferase (ALT/SGPT) Alkaline 89 Phosphatase Total Protein 6.1 Albumin 3.1 L Globulin 3.00 Albumin/Globulin 1.03 Ratio Random Vancomycin 16.1 Level Lab Scanned BLOOD TRANSFUSIO Report N Medications Medications Current Medications Albuterol (Proventil 0.083% (Neb)) 2.5 mg ICU RECOVERY PRN HHN .WHEEZING; Start 03/23/19 at 11:30 Aspirin (Aspirin) 325 mg DAILY PO Last administered on 03/28/19 12:38; Admin Dose 325 MG; Start 03/24/19 at 09:00 Amlodipine Besylate (Norvasc) 5 mg DAILY PO Last administered on 03/28/19 12:39; Admin Dose 5 MG; Start 03/24/19 at 09:00 Atorvastatin Calcium (Lipitor) 40 mg QHS PO Last administered on 03/28/19 20:48; Admin Dose 40 MG; Start 03/23/19 at 21:00 Carvedilol (Coreg) 12.5 mg BID PO Last administered on 03/28/19 20:48; Admin Dose 12.5 MG; Start 03/23/19 at 21:00 Linagliptin (Tradjenta) 5 mg DAILY PO Last administered on 03/28/19 12:38; Admin Dose 5 MG; Start 03/24/19 at 09:00 Ranitidine HCl (Zantac) 150 mg DAILY PO Last administered on 03/28/19 12:38; Admin Dose 150 MG; Start 03/24/19 at 09:00 Ondansetron HCl (Zofran Inj) 4 mg Q4H PRN IV NAUSEA AND/OR VOMITING Last administered on 03/28/19 20:28; Admin Dose 4 MG; Start 03/23/19 at 18:00 Metoclopramide HCl (Reglan) 10 mg Q6H PRN IV NAUSEA Last administered on 03/27/19 08:40; Admin Dose 10 MG; Start 03/23/19 at 18:00 Diagnostic Test (Pha) (Accu-Chek) 1 ea Q4 XX Last administered on 03/29/19at 17:00; Admin Dose 1 EA; Start 03/23/19 at 21:00 Hydromorphone HCl (Dilaudid) 2 mg Q4H PRN IV SEVERE PAIN LEVEL 7-10 Last administered on 03/30/19 00:42; Admin Dose 2 MG; Start 03/23/19 at 18:00 Miscellaneous Information 1 ea NOTE XX ; Start 03/23/19 at 18:30 Glucose (Glutose) 15 gm Q15M PRN PO DECREASED GLUCOSE; Start 03/23/19 at 18:30 Glucose (Glutose) 22.5 gm Q15M PRN PO DECREASED GLUCOSE; Start 03/23/19 at 18:30 Dextrose (D50w Syringe) 25 ml Q15M PRN IV DECREASED GLUCOSE; Start 03/23/19 at 18:30 Dextrose (D50w Syringe) 50 ml Q15M PRN IV DECREASED GLUCOSE; Start 03/23/19 at 18:30 Glucagon (Glucagen) 1 mg Q15M PRN IM DECREASED GLUCOSE; Start 03/23/19 at 18:30 Glucose (Glutose) 15 gm Q15M PRN BUCCAL DECREASED GLUCOSE; Start 03/23/19 at 18:30 Epoetin Joseph-epbx (Retacrit (Esrd)) 10,000 unit TuThSa@1700 SC Last administered on 03/28/19at 18:14; Admin Dose 10,000 UNIT; Start 03/24/19 at 17:00 Acetaminophen/ Hydrocodone Bitart ([place] (5/325)) 1 tab Q6H PRN PO .MOD PAIN 4- 6 Last administered on 03/25/19at 14:33; Admin Dose 1 TAB; Start 03/24/19 at 22:30 Vancomycin HCl (Vanco Iv Per Pharmacy) VANCOMYCIN PER PHARMACY PER PROTOCOL XX ; Start 03/25/19 at 14:30 Calcium Acetate (Phoslo) 667 mg WITH MEALS PO Last administered on 03/28/19 12:38; Admin Dose 667 MG; Start 03/26/19 at 12:00 Albumin Human 100 ml @ 100 mls/hr WITH DIALYSIS PRN IV SBP <90 DURING DIALYSIS Last administered on 03/29/19 10:43; Admin Dose 100 MLS/HR; Start 03/27/19 at 12:00 Albuterol/ Ipratropium (Duoneb) 3 ml Q4HWA RESP THERAPY HHN Last administered on 03/29/19 21:03; Admin Dose 3 ML; Start 03/27/19 at 21:00 Heparin Sodium (Porcine) (Heparin (1000 Units/ml)) 3,000 unit AFTER DIALYSIS CATHETER Last administered on 03/28/19 12:00; Admin Dose 3,000 UNIT; Start 03/28/19 at 09:30 Magnesium Hydroxide (Milk Of Mag) 30 ml DAILY PRN PO CONSTIPATION Last administered on 03/28/19 20:48; Admin Dose 30 ML; Start 03/28/19 at 15:30 Sodium Biphosphate/ Sodium Phosphate (Fleet Enema) 133 ml DAILY PRN CO CONSTIPATION Last administered on 03/29/19 14:30; Admin Dose 133 ML; Start 03/28/19 at 15:30 Diagnostic Test (Pha) (Accu-Chek) 1 ea 02 XX ; Start 03/30/19 at 02:00 Insulin Aspart (Novolog Insulin Pen) NOVOLOG *MILD* ALGORI... Q4 SC ; Start 03/29/19 at 09:00 Heparin Sodium (Porcine) (Heparin (5000 Units/1ml)) 5,000 unit BID SC Last administered on 03/29/19 21:23; Admin Dose 5,000 UNIT; Start 03/29/19 at 21:00 Metoclopramide HCl (Reglan) 5 mg Q6 IV Last administered on 03/30/19 05:57; Admin Dose 5 MG; Start 03/29/19 at 18:00 Meropenem/Sodium Chloride 50 ml @ 100 mls/hr Q24H IVPB Last administered on 03/29/19 18:36; Admin Dose 100 MLS/HR; Start 03/29/19 at 18:00 DOT ASHLEY MD Mar 30, 2019 08:20
[2019-03-30] MEDS: ALBUTEROL/IPRATROPIUM (NEB) 3 ML AMP HHN SCH ×4 (09:15→20:46)
[2019-03-30] MEDS: HEPARIN 5,000 UNIT/1 ML VIAL SC SCH ×2 (09:59→21:05)
[2019-03-30] MEDS: CALCIUM ACETATE 667 MG CAP PO SCH ×3 (10:01→18:04)
[2019-03-30] MEDS: LINAGLIPTIN 5 MG TABLET PO SCH (10:01)
[2019-03-30] MEDS: RANITIDINE 150 MG TAB PO SCH (10:02)
[2019-03-30] MEDS: AMLODIPINE 5 MG TAB PO SCH (10:02)
[2019-03-30] MEDS: ASPIRIN 325 MG TAB PO SCH (10:02)
--- NOTE | 2019-03-30 10:53 | CONS ---
Consult Date/Type/Reason Admit Date/Time Mar 23, 2019 at 06:13 Initial Consult Date 03/28/19 Type of Consult Pulmonary Requesting Provider: JOSE PARRY MD Date/Time of Note DATE: 03/30/19 TIME: 10:52 Subjective Still has significant dyspnea requiring bilevel ventilation. Objective Vital Signs Date Temp Pulse Resp B/P (MAP) Pulse Ox O2 O2 Flow FiO2 Time Delivery Rate 03/30/19 98 75 10:39 03/30/19 75 08:17 03/30/19 97.3 17 144/69 BIPAP 08:00 (94) 03/28/19 8.0 13:25 Intake and Output 03/29/19 03/29/19 03/30/19 1515:00 23:00 07:00 IntakeIntake Total 150 ml 100 ml 0 ml OutputOutput Total 4018 ml 10 ml 15 ml BalanceBalance -3868 ml 90 ml -15 ml Exam GENERAL: VITAL SIGNS: per chart NECK: Supple. No JVD or lymphadenopathy. CARDIAC EXAM: S1, S2. No added sounds or murmurs. CHEST: Diminished air entry bilaterally ABDOMEN: Soft, nontender. No guarding or rebound. EXTREMITIES: No cyanosis, clubbing or edema. NEUROLOGIC: Generalized weakness. No focal deficits. Elderly appearing gentleman on bilevel ventilation Vent Setting Fraction of Inspired Oxygen pe: 75 Results/Medications Result Diagram: 03/30/19 0415 03/30/19 0415 Results 24 hrs Laboratory Tests Test 03/29/19 13:39 03/29/19 17:34 03/29/19 21:31 03/30/19 00:44 Bedside Glucose 116 130 124 121 Test 03/30/19 04:15 03/30/19 05:17 03/30/19 05:37 03/30/19 09:19 White Blood Count 14.4 #H Red Blood Count 2.84 L Hemoglobin 8.3 L Hematocrit 26.1 L Mean Corpuscular 91.9 Volume Mean Corpuscular 29.2 Hemoglobin Mean Corpuscular 31.8 L Hemoglobin Concen t Red Cell 14.8 H Distribution Width Platelet Count 345 Mean Platelet 10.1 Volume Immature 0.800 H Granulocytes % Neutrophils % 85.6 H Lymphocytes % 6.4 L Monocytes % 6.5 Eosinophils % 0.6 Basophils % 0.1 Nucleated Red 0.3 H Blood Cells % Immature 0.110 H Granulocytes # Neutrophils # 12.3 H Lymphocytes # 0.9 Monocytes # 0.9 Eosinophils # 0.1 Basophils # 0.0 Nucleated Red 0.1 H Blood Cells # Sodium Level 141 Potassium Level 3.6 Chloride Level 101 Carbon Dioxide 27 Level Anion Gap 13 Blood Urea 49 H Nitrogen Creatinine 5.80 H Est Glomerular 10 L Filtrat Rate mL/min Glucose Level 109 # Calcium Level 8.5 Total Bilirubin 0.3 Direct Bilirubin 0.00 Indirect 0.3 Bilirubin Aspartate Amino 28 Transf (AST/SGOT) Alanine 24 Aminotransferase (ALT/SGPT) Alkaline 89 Phosphatase Total Protein 6.1 Albumin 3.1 L Globulin 3.00 Albumin/Globulin 1.03 Ratio Random Vancomycin 16.1 Level Bedside Glucose 113 105 Lab Scanned BLOOD TRANSFUSIO Report N Medications Current Medications Albuterol (Proventil 0.083% (Neb)) 2.5 mg ICU RECOVERY PRN HHN .WHEEZING; Start 03/23/19 at 11:30 Aspirin (Aspirin) 325 mg DAILY PO Last administered on 03/30/19 10:02; Admin Dose 325 MG; Start 03/24/19 at 09:00 Amlodipine Besylate (Norvasc) 5 mg DAILY PO Last administered on 03/30/19 10:02; Admin Dose 5 MG; Start 03/24/19 at 09:00 Atorvastatin Calcium (Lipitor) 40 mg QHS PO Last administered on 03/28/19 20:48; Admin Dose 40 MG; Start 03/23/19 at 21:00 Carvedilol (Coreg) 12.5 mg BID PO Last administered on 03/30/19 10:02; Admin Dose 12.5 MG; Start 03/23/19 at 21:00 Linagliptin (Tradjenta) 5 mg DAILY PO Last administered on 03/28/19 12:38; Admin Dose 5 MG; Start 03/24/19 at 09:00 Ranitidine HCl (Zantac) 150 mg DAILY PO Last administered on 03/30/19 10:02; Admin Dose 150 MG; Start 03/24/19 at 09:00 Ondansetron HCl (Zofran Inj) 4 mg Q4H PRN IV NAUSEA AND/OR VOMITING Last administered on 03/28/19 20:28; Admin Dose 4 MG; Start 03/23/19 at 18:00 Metoclopramide HCl (Reglan) 10 mg Q6H PRN IV NAUSEA Last administered on 03/27/19 08:40; Admin Dose 10 MG; Start 03/23/19 at 18:00 Diagnostic Test (Pha) (Accu-Chek) 1 ea Q4 XX Last administered on 03/30/19 09 :30; Admin Dose 1 EA; Start 03/23/19 at 21:00 Hydromorphone HCl (Dilaudid) 2 mg Q4H PRN IV SEVERE PAIN LEVEL 7-10 Last administered on 03/30/19at 00:42; Admin Dose 2 MG; Start 03/23/19 at 18:00 Miscellaneous Information 1 ea NOTE XX ; Start 03/23/19 at 18:30 Glucose (Glutose) 15 gm Q15M PRN PO DECREASED GLUCOSE; Start 03/23/19 at 18:30 Glucose (Glutose) 22.5 gm Q15M PRN PO DECREASED GLUCOSE; Start 03/23/19 at 18:30 Dextrose (D50w Syringe) 25 ml Q15M PRN IV DECREASED GLUCOSE; Start 03/23/19 at 18:30 Dextrose (D50w Syringe) 50 ml Q15M PRN IV DECREASED GLUCOSE; Start 03/23/19 at 18:30 Glucagon (Glucagen) 1 mg Q15M PRN IM DECREASED GLUCOSE; Start 03/23/19 at 18:30 Glucose (Glutose) 15 gm Q15M PRN BUCCAL DECREASED GLUCOSE; Start 03/23/19 at 18:30 Epoetin Joseph-epbx (Retacrit (Esrd)) 10,000 unit TuThSa@1700 SC Last administered on 03/28/19at 18:14; Admin Dose 10,000 UNIT; Start 03/24/19 at 17:00 Acetaminophen/ Hydrocodone Bitart ([place] (5/325)) 1 tab Q6H PRN PO .MOD PAIN 4- 6 Last administered on 03/25/19at 14:33; Admin Dose 1 TAB; Start 03/24/19 at 22:30 Vancomycin HCl (Vanco Iv Per Pharmacy) VANCOMYCIN PER PHARMACY PER PROTOCOL XX ; Start 03/25/19 at 14:30 Calcium Acetate (Phoslo) 667 mg WITH MEALS PO Last administered on 03/30/19at 10:01; Admin Dose 667 MG; Start 03/26/19 at 12:00 Albumin Human 100 ml @ 100 mls/hr WITH DIALYSIS PRN IV SBP <90 DURING DIALYSIS Last administered on 03/29/19 10:43; Admin Dose 100 MLS/HR; Start 03/27/19 at 12:00 Albuterol/ Ipratropium (Duoneb) 3 ml Q4HWA RESP THERAPY HHN Last administered on 03/30/19 09:15; Admin Dose 3 ML; Start 03/27/19 at 21:00 Heparin Sodium (Porcine) (Heparin (1000 Units/ml)) 3,000 unit AFTER DIALYSIS CATHETER Last administered on 03/28/19 12:00; Admin Dose 3,000 UNIT; Start 03/28/19 at 09:30 Magnesium Hydroxide (Milk Of Mag) 30 ml DAILY PRN PO CONSTIPATION Last administered on 03/28/19 20:48; Admin Dose 30 ML; Start 03/28/19 at 15:30 Sodium Biphosphate/ Sodium Phosphate (Fleet Enema) 133 ml DAILY PRN [place] CONSTIPA TION Last administered on 03/29/19 14:30; Admin Dose 133 ML; Start 03/28/19 at 15:30 Diagnostic Test (Pha) (Accu-Chek) 1 ea 02 XX ; Start 03/30/19 at 02:00 Insulin Aspart (Novolog Insulin Pen) NOVOLOG *MILD* ALGORI... Q4 SC ; Start 03/29/19 at 09:00 Heparin Sodium (Porcine) (Heparin (5000 Units/1ml)) 5,000 unit BID SC Last administered on 03/30/19 09:59; Admin Dose 5,000 UNIT; Start 03/29/19 at 21:00 Metoclopramide HCl (Reglan) 5 mg Q6 IV Last administered on 03/30/19 05:57; Admin Dose 5 MG; Start 03/29/19 at 18:00 Meropenem/Sodium Chloride 50 ml @ 100 mls/hr Q24H IVPB Last administered on 03/29/19 18:36; Admin Dose 100 MLS/HR; Start 03/29/19 at 18:00 Assessment/Plan Hospital Course (Demo Recall) IMPRESSION: 1. Acute hypoxemic respiratory failure requiring BiPAP support. Chest x-ray demonstrates pulmonary edema 2. Acute on chronic renal failure, now requiring dialysis. 3. Peripheral vascular disease, status post revascularization. 4. Likely aspiration pneumonia as well. 5. Diabetes mellitus. 6. History of hypertension. 7. Benign prostatic hypertrophy. RECOMMENDATIONS: 1. Continue BiPAP for now. Trial of high flow O2 2. Aspiration precautions 3. CT chest noncontrast 4. Hemodialysis per nephrology. 5. We will consider empiric steroid trial after CT chest. Critical care time 40 minutes. DMITRI PAIGE MD, [facility] Mar 30, 2019 10:53
[2019-03-30] MEDS: HEPARIN 1000 UNITS/ML 10 ML INJ CATHETER SCH (15:52)
[2019-03-30] MEDS ORDERED: VANCOMYCIN 1 GM 250 ML IVPB ONE (17:00)
--- NOTE | 2019-03-30 17:33 | CONS ---
Assessment/Plan Assessment/Plan Hospital Course (Demo Recall) assessment/impression - acute hypoxic resp failure, probably multifactorial: first, fluid overload. Pt's oxygenation improved after undergoing dialysis and so fluid overload is a significant factor. Second, I suspect aspiration pneumonia/pneumonitis. Pt reportedly was having spells of congested cough upon arrival at ICU. Pt has h/o "excessive saliva production" since 08/2018 according to Pt's daughter in law. This increases a risk of aspiration pneumonia and/or pneumonitis. 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, Pt is scheduled to get R TMA once his acute illness resolves - s/p R SFA to posterior tibial bypass using in situ greater saphenous vein from R thigh and calf on 03/23/2019 - former smoker - constipation recommendations: - will review the result of chest CT - will repeat procalcitonin; it has been steadily rising but clinically, his resp status is improved; it may be a delayed response due to his renal failure - d/c IV vancomycin (03/25/19-03/30/19) - continue renally dosed meropenem (03/29/19-); meropenem replaced pip/tazo (03/25/19-03/28/19) - his account of "excessive saliva production" that is worse while lying down in bed is suspicious for GERD, and I recommended to Pt's daughter in law f/u with his PMD or GI specialist management d/w Pt and his RN Hayley the critical care time I took to care for this Pt today was from 1700 to 1730 Consultation Date/Type/Reason Admit Date/Time Mar 23, 2019 at 06:13 Initial Consult Date 03/28/19 Type of Consult ID Requesting Provider: JOSE PARRY MD Date/Time of Note DATE: 03/30/19 TIME: 17:32 24 HR Interval Summary Constitutional: improved Detailed Summary Eyes: no complaints ENT: no complaints Respiratory: sputum; No shortness of breath Cardiovascular: no complaints Gastrointestinal: no complaints Genitourinary: other (FC) Musculoskeletal: other (debility) Skin: no complaints Neurologic: no complaints Exam/Review of Systems Exam Vitals Vital Signs Date Temp Pulse Resp B/P (MAP) Pulse Ox O2 O2 Flow FiO2 Time Delivery Rate 03/30/19 73 22 132/60 100 High Flow 16:01 (84) 03/30/19 97.5 12:00 03/30/19 75 10:39 03/28/19 8.0 13:25 Intake and Output 03/29/19 03/29/19 03/30/19 1515:00 23:00 07:00 IntakeIntake Total 150 ml 100 ml 0 ml OutputOutput Total 4018 ml 10 ml 15 ml BalanceBalance -3868 ml 90 ml -15 ml Constitutional: other (more awake) Head: normocephalic, atraumatic Eyes: nl conjunctiva, nl lids ENMT: nl external ears & nose, nl nasal mucosa & septum, mucosa pink and moist Neck: supple Respiratory: crackles/rales Cardiovascular: regular rate and rhythm, nl pulses; No edema Gastrointestinal: soft, non-tender; No distended Genitourinary - Male: other (FC) Musculoskeletal: other (gangrene of R 1st-2nd toes) Extremities: No edema Neurological: nl mental status Skin: other (+bypass surgical sites are dresssed) Results Result Diagram: 03/30/19 0415 03/30/19 0415 Results 24hrs Laboratory Tests Test 03/29/19 17:34 03/29/19 21:31 03/30/19 00:44 03/30/19 04:15 Bedside Glucose 130 124 121 White Blood Count 14.4 #H Red Blood Count 2.84 L Hemoglobin 8.3 L Hematocrit 26.1 L Mean Corpuscular 91.9 Volume Mean Corpuscular 29.2 Hemoglobin Mean Corpuscular 31.8 L Hemoglobin Concen t Red Cell 14.8 H Distribution Width Platelet Count 345 Mean Platelet 10.1 Volume Immature 0.800 H Granulocytes % Neutrophils % 85.6 H Lymphocytes % 6.4 L Monocytes % 6.5 Eosinophils % 0.6 Basophils % 0.1 Nucleated Red 0.3 H Blood Cells % Immature 0.110 H Granulocytes # Neutrophils # 12.3 H Lymphocytes # 0.9 Monocytes # 0.9 Eosinophils # 0.1 Basophils # 0.0 Nucleated Red 0.1 H Blood Cells # Sodium Level 141 Potassium Level 3.6 Chloride Level 101 Carbon Dioxide 27 Level Anion Gap 13 Blood Urea 49 H Nitrogen Creatinine 5.80 H Est Glomerular 10 L Filtrat Rate mL/min Glucose Level 109 # Calcium Level 8.5 Total Bilirubin 0.3 Direct Bilirubin 0.00 Indirect 0.3 Bilirubin Aspartate Amino 28 Transf (AST/SGOT) Alanine 24 Aminotransferase (ALT/SGPT) Alkaline 89 Phosphatase Total Protein 6.1 Albumin 3.1 L Globulin 3.00 Albumin/Globulin 1.03 Ratio Procalcitonin 8.70 H Random Vancomycin 16.1 Level Test 03/30/19 05:17 03/30/19 05:37 03/30/19 09:19 03/30/19 13:21 Bedside Glucose 113 105 128 Lab Scanned BLOOD TRANSFUSIO Report N Test 03/30/19 17:26 Bedside Glucose 104 Medications Medication Current Medications Albuterol (Proventil 0.083% (Neb)) 2.5 mg ICU RECOVERY PRN HHN .WHEEZING; Start 03/23/19 at 11:30 Aspirin (Aspirin) 325 mg DAILY PO Last administered on 03/30/19 10:02; Admin Dose 325 MG; Start 03/24/19 at 09:00 Amlodipine Besylate (Norvasc) 5 mg DAILY PO Last administered on 03/30/19 10:02; Admin Dose 5 MG; Start 03/24/19 at 09:00 Atorvastatin Calcium (Lipitor) 40 mg QHS PO Last administered on 03/28/19 20:48; Admin Dose 40 MG; Start 03/23/19 at 21:00 Carvedilol (Coreg) 12.5 mg BID PO Last administered on 03/30/19 10:02; Admin Dose 12.5 MG; Start 03/23/19 at 21:00 Linagliptin (Tradjenta) 5 mg DAILY PO Last administered on 03/28/19 12:38; Admin Dose 5 MG; Start 03/24/19 at 09:00 Ranitidine HCl (Zantac) 150 mg DAILY PO Last administered on 03/30/19 10:02; Admin Dose 150 MG; Start 03/24/19 at 09:00 Ondansetron HCl (Zofran Inj) 4 mg Q4H PRN IV NAUSEA AND/OR VOMITING Last administered on 03/28/19 20:28; Admin Dose 4 MG; Start 03/23/19 at 18:00 Metoclopramide HCl (Reglan) 10 mg Q6H PRN IV NAUSEA Last administered on 03/27/19 08:40; Admin Dose 10 MG; Start 03/23/19 at 18:00 Diagnostic Test (Pha) (Accu-Chek) 1 ea Q4 XX Last administered on 03/30/19at 13:53; Admin Dose 1 EA; Start 03/23/19 at 21:00 Hydromorphone HCl (Dilaudid) 2 mg Q4H PRN IV SEVERE PAIN LEVEL 7-10 Last administered on 03/30/19 00:42; Admin Dose 2 MG; Start 03/23/19 at 18:00 Miscellaneous Information 1 ea NOTE XX ; Start 03/23/19 at 18:30 Glucose (Glutose) 15 gm Q15M PRN PO DECREASED GLUCOSE; Start 03/23/19 at 18:30 Glucose (Glutose) 22.5 gm Q15M PRN PO DECREASED GLUCOSE; Start 03/23/19 at 18:30 Dextrose (D50w Syringe) 25 ml Q15M PRN IV DECREASED GLUCOSE; Start 03/23/19 at 18:30 Dextrose (D50w Syringe) 50 ml Q15M PRN IV DECREASED GLUCOSE; Start 03/23/19 at 18:30 Glucagon (Glucagen) 1 mg Q15M PRN IM DECREASED GLUCOSE; Start 03/23/19 at 18:30 Glucose (Glutose) 15 gm Q15M PRN BUCCAL DECREASED GLUCOSE; Start 03/23/19 at 18:30 Epoetin Joseph-epbx (Retacrit (Esrd)) 10,000 unit TuThSa@1700 SC Last administere d on 03/28/19at 18:14; Admin Dose 10,000 UNIT; Start 03/24/19 at 17:00 Acetaminophen/ Hydrocodone Bitart ([place] (5/325)) 1 tab Q6H PRN PO .MOD PAIN 4- 6 Last administered on 03/25/19at 14:33; Admin Dose 1 TAB; Start 03/24/19 at 22:30 Vancomycin HCl (Vanco Iv Per Pharmacy) VANCOMYCIN PER PHARMACY PER PROTOCOL XX ; Start 03/25/19 at 14:30 Calcium Acetate (Phoslo) 667 mg WITH MEALS PO Last administered on 03/30/19 10:01; Admin Dose 667 MG; Start 03/26/19 at 12:00 Albumin Human 100 ml @ 100 mls/hr WITH DIALYSIS PRN IV SBP <90 DURING DIALYSIS Last administered on 03/29/19 10:43; Admin Dose 100 MLS/HR; Start 03/27/19 at 12:00 Albuterol/ Ipratropium (Duoneb) 3 ml Q4HWA RESP THERAPY HHN Last administered on 03/30/19 09:15; Admin Dose 3 ML; Start 03/27/19 at 21:00 Heparin Sodium (Porcine) (Heparin (1000 Units/ml)) 3,000 unit AFTER DIALYSIS CATHETER Last administered on 03/30/19 15:52; Admin Dose 3,000 UNIT; Start 03/28/19 at 09:30 Magnesium Hydroxide (Milk Of Mag) 30 ml DAILY PRN PO CONSTIPATION Last administered on 03/28/19 20:48; Admin Dose 30 ML; Start 03/28/19 at 15:30 Sodium Biphosphate/ Sodium Phosphate (Fleet Enema) 133 ml DAILY PRN [place] CONSTIPATION Last administered on 03/29/19 14:30; Admin Dose 133 ML; Start 03/28/19 at 15:30 Diagnostic Test (Pha) (Accu-Chek) 1 ea 02 XX ; Start 03/30/19 at 02:00 Insulin Aspart (Novolog Insulin Pen) NOVOLOG *MILD* ALGORI... Q4 SC ; Start 03/29/19 at 09:00 Heparin Sodium (Porcine) (Heparin (5000 Units/1ml)) 5,000 unit BID SC Last a dministered on 03/30/19 09:59; Admin Dose 5,000 UNIT; Start 03/29/19 at 21:00 Metoclopramide HCl (Reglan) 5 mg Q6 IV Last administered on 03/30/19 05:57; Admin Dose 5 MG; Start 03/29/19 at 18:00 Meropenem/Sodium Chloride 50 ml @ 100 mls/hr Q24H IVPB Last administered on 03/29/19 18:36; Admin Dose 100 MLS/HR; Start 03/29/19 at 18:00 Vancomycin HCl 250 ml @ 125 mls/hr ONCE ONCE IVPB ; Start 03/30/19 at 17:00; Stop 03/30/19 at 18:59 LUDMILA ANTOINE M.D. Mar 30, 2019 17:33
[2019-03-30] MEDS: MEROPENEM 500MG/50 ML (PMX) 50 ML IVPB SCH (18:05)
--- NOTE | 2019-03-30 19:56 | CONS ---
Assessment/Plan Assessment/Plan Hospital Course (Demo Recall) Acute respiratory failure Acute kidney injury on hemodialysis Peripheral arterial disease status post bypass Hypertension Preserved left ventricular ejection fraction echocardiogram January 2019 Fluid management via hemodialysis as per nephrology Troponins minimally elevated but still in normal range with no significant ECG abnormalities Continue statin and aspirin therapy if able to take p.o., if no contraindication, change asa to 81mg daily Consultation Date/Type/Reason Admit Date/Time Mar 23, 2019 at 06:13 Initial Consult Date 03/28/19 Type of Consult Cardiology Requesting Provider: JOSE PARRY MD Date/Time of Note DATE: 03/30/19 TIME: 19:54 24 HR Interval Summary Free Text/Dictation off bipap, no cp,sob Exam/Review of Systems Vital Signs Vitals Vital Signs Date Temp Pulse Resp B/P (MAP) Pulse Ox O2 O2 Flow FiO2 Time Delivery Rate 03/30/19 95 45 18:23 03/30/19 77 18 140/59 High Flow 18:00 (86) 03/30/19 97.5 16:00 03/28/19 8.0 13:25 Intake and Output 03/29/19 03/29/19 03/30/19 1515:00 23:00 07:00 IntakeIntake Total 150 ml 100 ml 0 ml OutputOutput Total 4018 ml 10 ml 15 ml BalanceBalance -3868 ml 90 ml -15 ml Exam Constitutional: alert, oriented (nad) Head: normocephalic Respiratory: other (course bs, no wheeze) Cardiovascular: regular rate and rhythm (s1s2) Gastrointestinal: soft, non-tender, bowel sounds Extremities: edema Labs Result Diagram: 03/30/19 0415 03/30/19 0415 Results 24hrs Laboratory Tests Test 03/29/19 21:31 03/30/19 00:44 03/30/19 04:15 03/30/19 05:17 Bedside Glucose 124 121 113 White Blood Count 14.4 #H Red Blood Count 2.84 L Hemoglobin 8.3 L Hematocrit 26.1 L Mean Corpuscular 91.9 Volume Mean Corpuscular 29.2 Hemoglobin Mean Corpuscular 31.8 L Hemoglobin Concen t Red Cell 14.8 H Distribution Width Platelet Count 345 Mean Platelet 10.1 Volume Immature 0.800 H Granulocytes % Neutrophils % 85.6 H Lymphocytes % 6.4 L Monocytes % 6.5 Eosinophils % 0.6 Basophils % 0.1 Nucleated Red 0.3 H Blood Cells % Immature 0.110 H Granulocytes # Neutrophils # 12.3 H Lymphocytes # 0.9 Monocytes # 0.9 Eosinophils # 0.1 Basophils # 0.0 Nucleated Red 0.1 H Blood Cells # Sodium Level 141 Potassium Level 3.6 Chloride Level 101 Carbon Dioxide 27 Level Anion Gap 13 Blood Urea 49 H Nitrogen Creatinine 5.80 H Est Glomerular 10 L Filtrat Rate mL/min Glucose Level 109 # Calcium Level 8.5 Total Bilirubin 0.3 Direct Bilirubin 0.00 Indirect 0.3 Bilirubin Aspartate Amino 28 Transf (AST/SGOT) Alanine 24 Aminotransferase (ALT/SGPT) Alkaline 89 Phosphatase Total Protein 6.1 Albumin 3.1 L Globulin 3.00 Albumin/Globulin 1.03 Ratio Procalcitonin 8.70 H Random Vancomycin 16.1 Level Test 03/30/19 05:37 03/30/19 09:19 03/30/19 13:21 03/30/19 17:26 Lab Scanned BLOOD TRANSFUSIO Report N Bedside Glucose 105 128 104 Medications Medications Current Medications Albuterol (Proventil 0.083% (Neb)) 2.5 mg ICU RECOVERY PRN HHN .WHEEZING; Start 03/23/19 at 11:30 Aspirin (Aspirin) 325 mg DAILY PO Last administered on 03/30/19 10:02; Admin Dose 325 MG; Start 03/24/19 at 09:00 Amlodipine Besylate (Norvasc) 5 mg DAILY PO Last administered on 03/30/19 10:02; Admin Dose 5 MG; Start 03/24/19 at 09:00 Atorvastatin Calcium (Lipitor) 40 mg QHS PO Last administered on 03/28/19 20:48; Admin Dose 40 MG; Start 03/23/19 at 21:00 Carvedilol (Coreg) 12.5 mg BID PO Last administered on 03/30/19 10:02; Admin Dose 12.5 MG; Start 03/23/19 at 21:00 Linagliptin (Tradjenta) 5 mg DAILY PO Last administered on 03/28/19 12:38; Admin Dose 5 MG; Start 03/24/19 at 09:00 Ranitidine HCl (Zantac) 150 mg DAILY PO Last administered on 03/30/19 10:02; Admin Dose 150 MG; Start 03/24/19 at 09:00 Ondansetron HCl (Zofran Inj) 4 mg Q4H PRN IV NAUSEA AND/OR VOMITING Last administered on 03/28/19 20:28; Admin Dose 4 MG; Start 03/23/19 at 18:00 Metoclopramide HCl (Reglan) 10 mg Q6H PRN IV NAUSEA Last administered on 03/27/19 08:40; Admin Dose 10 MG; Start 03/23/19 at 18:00 Diagnostic Test (Pha) (Accu-Chek) 1 ea Q4 XX Last administered on 03/30/19 17:00; Admin Dose 1 EA; Start 03/23/19 at 21:00 Hydromorphone HCl (Dilaudid) 2 mg Q4H PRN IV SEVERE PAIN LEVEL 7-10 Last administered on 03/30/19 00:42; Admin Dose 2 MG; Start 03/23/19 at 18:00 Miscellaneous Information 1 ea NOTE XX ; Start 03/23/19 at 18:30 Glucose (Glutose) 15 gm Q15M PRN PO DECREASED GLUCOSE; Start 03/23/19 at 18:30 Glucose (Glutose) 22.5 gm Q15M PRN PO DECREASED GLUCOSE; Start 03/23/19 at 18:30 Dextrose (D50w Syringe) 25 ml Q15M PRN IV DECREASED GLUCOSE; Start 03/23/19 at 18:30 Dextrose (D50w Syringe) 50 ml Q15M PRN IV DECREASED GLUCOSE; Start 03/23/19 at 18:30 Glucagon (Glucagen) 1 mg Q15M PRN IM DECREASED GLUCOSE; Start 03/23/19 at 18:30 Glucose (Glutose) 15 gm Q15M PRN BUCCAL DECREASED GLUCOSE; Start 03/23/19 at 18:30 Epoetin Joseph-epbx (Retacrit (Esrd)) 10,000 unit TuThSa@1700 SC Last administered on 03/28/19 18:14; Admin Dose 10,000 UNIT; Start 03/24/19 at 17:00 Acetaminophen/ Hydrocodone Bitart ([place] (5/325)) 1 tab Q6H PRN PO .MOD PAIN 4- 6 Last administered on 03/25/19 14:33; Admin Dose 1 TAB; Start 03/24/19 at 22:30 Calcium Acetate (Phoslo) 667 mg WITH MEALS PO Last administered on 03/30/19 18:04; Admin Dose 667 MG; Start 03/26/19 at 12:00 Albumin Human 100 ml @ 100 mls/hr WITH DIALYSIS PRN IV SBP <90 DURING DIALYSIS Last administered on 03/29/19 10:43; Admin Dose 100 MLS/HR; Start 03/27/19 at 12:00 Albuterol/ Ipratropium (Duoneb) 3 ml Q4HWA RESP THERAPY HHN Last administered on 03/30/19 17:40; Admin Dose 3 ML; Start 03/27/19 at 21:00 Heparin Sodium (Porcine) (Heparin (1000 Units/ml)) 3,000 unit AFTER DIALYSIS CATHETER Last administered on 03/30/19 15:52; Admin Dose 3,000 UNIT; Start 03/28/19 at 09:30 Magnesium Hydroxide (Milk Of Mag) 30 ml DAILY PRN PO CONSTIPATION Last administered on 03/28/19 20:48; Admin Dose 30 ML; Start 03/28/19 at 15:30 Sodium Biphosphate/ Sodium Phosphate (Fleet Enema) 133 ml DAILY PRN [place] CONSTIPATION Last administered on 03/29/19 14:30; Admin Dose 133 ML; Start 03/28/19 at 15:30 Diagnostic Test (Pha) (Accu-Chek) 1 ea 02 XX ; Start 03/30/19 at 02:00 Insulin Aspart (Novolog Insulin Pen) NOVOLOG *MILD* ALGORI... Q4 SC ; Start 03/29/19 at 09:00 Heparin Sodium (Porcine) (Heparin (5000 Units/1ml)) 5,000 unit BID SC Last administered on 03/30/19 09:59; Admin Dose 5,000 UNIT; Start 03/29/19 at 21:00 Metoclopramide HCl (Reglan) 5 mg Q6 IV Last administered on 03/30/19 18:05; Admin Dose 5 MG; Start 03/29/19 at 18:00 Meropenem/Sodium Chloride 50 ml @ 100 mls/hr Q24H IVPB Last administered on 03/30/19 18:05; Admin Dose 100 MLS/HR; Start 03/29/19 at 18:00 Jose Richard DO Mar 30, 2019 19:56
[2019-03-30] MEDS: ATORVASTATIN 40 MG TAB PO SCH (21:02)
--- NOTE | 2019-03-30 21:49 | PN ---
Date/Time of Note Date/Time of Note DATE: 03/30/19 TIME: 21:41 Assessment/Plan VTE Prophylaxis Risk score (from Ns)>0 risk: 11 [place]CD [place] [facility] [place] contraindicated: bilateral LE trauma Pharmacological prophylaxis: heparin Lines/Catheters IV Catheter Type (from [facility] [place] Urinary Cath still in place: Yes Reason Cath still needed: urinary retention Assessment/Plan Problems: (1) Acute respiratory failure with hypoxia Status: Acute Comment: Pt. has weaned from BiPAP back to high-flow nasal cannula. Stable for the time being. Continue to monitor in ICU setting. Cont. to dialyze per nephrology and treat pneumonia (2) Nosocomial pneumonia Status: Acute Comment: Confirmed by procalcitonin and CT chest. ID changed [email or web address] to [email or web address]. Appreciate their management. Pt. clinically improved. (3) Leukocytosis Status: Acute Comment: Remain elevated despite antibiotic change. Will follow (4) Acute on chronic renal failure Status: Acute Comment: dialysis per nephrology (5) Type 2 diabetes mellitus with diabetic peripheral angiopathy with gangrene Status: Acute Comment: Pt. s/p revascularization. Awaiting stability to have R foot TMTA. BG control good on linagliptin alone. Will continue. (6) Essential (primary) hypertension Status: Chronic Comment: Good BP control. Cont. amlodipine and carvedilol (7) Hyperlipidemia Status: Chronic Comment: Cont. statin (8) Anemia Status: Chronic Comment: H/H relatively stable. On Epogen. Will monitor. (9) Benign prostatic hyperplasia with urinary obstruction Status: Chronic Comment: off alfuzosin. Currently on short cath. Will d/c when more stable. Result Diagram: 03/30/19 0415 03/30/19 0415 Results 24hrs Laboratory Tests Test 03/30/19 00:44 03/30/19 04:15 03/30/19 05:17 03/30/19 05:37 Bedside Glucose 121 113 White Blood Count 14.4 #H Red Blood Count 2.84 L Hemoglobin 8.3 L Hematocrit 26.1 L Mean Corpuscular 91.9 Volume Mean Corpuscular 29.2 Hemoglobin Mean Corpuscular 31.8 L Hemoglobin Concen t Red Cell 14.8 H Distribution Width Platelet Count 345 Mean Platelet 10.1 Volume Immature 0.800 H Granulocytes % Neutrophils % 85.6 H Lymphocytes % 6.4 L Monocytes % 6.5 Eosinophils % 0.6 Basophils % 0.1 Nucleated Red 0.3 H Blood Cells % Immature 0.110 H Granulocytes # Neutrophils # 12.3 H Lymphocytes # 0.9 Monocytes # 0.9 Eosinophils # 0.1 Basophils # 0.0 Nucleated Red 0.1 H Blood Cells # Sodium Level 141 Potassium Level 3.6 Chloride Level 101 Carbon Dioxide 27 Level Anion Gap 13 Blood Urea 49 H Nitrogen Creatinine 5.80 H Est Glomerular 10 L Filtrat Rate mL/min Glucose Level 109 # Calcium Level 8.5 Total Bilirubin 0.3 Direct Bilirubin 0.00 Indirect 0.3 Bilirubin Aspartate Amino 28 Transf (AST/SGOT) Alanine 24 Aminotransferase (ALT/SGPT) Alkaline 89 Phosphatase Total Protein 6.1 Albumin 3.1 L Globulin 3.00 Albumin/Globulin 1.03 Ratio Procalcitonin 8.70 H Random Vancomycin 16.1 Level Lab Scanned BLOOD TRANSFUSIO Report N Test 03/30/19 09:19 03/30/19 13:21 03/30/19 17:26 03/30/19 21:11 Bedside Glucose 105 128 104 132 Subjective 24 Hr Interval Summary Constitutional: no complaints, improved, requiring O2 (via nasal cannula) Respiratory: shortness of breath (improved) Cardiovascular: no complaints Gastrointestinal: constipation (improved), nausea (improved); No decreased appetite (now hungry) Genitourinary: no complaints Musculoskeletal: no complaints Neurologic: no complaints Exam/Review of Systems Exam Vitals VS - Last 72 Hours, by Label Date Temp Pulse Resp B/P (MAP) Pulse Ox O2 O2 Flow FiO2 Time Delivery Rate 03/30/19 82 14 116/53 93 High Flow 21:00 (74) 03/30/19 85 22 94 100 20:11 03/30/19 94 45 20:10 03/30/19 97.9 82 14 121/52 91 High Flow 20:00 (75) 03/30/19 85 16 125/102 91 High Flow 19:00 (110) 03/30/19 95 45 18:23 03/30/19 77 18 140/59 94 High Flow 18:00 (86) 03/30/19 20 137/62 95 High Flow 17:00 (87) 03/30/19 73 22 132/60 100 High Flow 16:01 (84) 03/30/19 73 16:00 03/30/19 97.5 74 19 132/60 94 High Flow 16:00 (84) 03/30/19 69 15:55 03/30/19 69 15:40 03/30/19 69 15:25 03/30/19 69 15:10 03/30/19 71 23 154/62 98 High Flow 15:00 (92) 03/30/19 69 14:55 03/30/19 67 14:40 03/30/19 96 60 14:30 03/30/19 68 14:25 03/30/19 71 14:10 03/30/19 70 13 132/61 97 High Flow 14:00 (84) 03/30/19 70 13:55 03/30/19 72 13:40 03/30/19 71 13:25 03/30/19 73 13:10 03/30/19 71 14 124/62 94 High Flow 13:00 (82) 03/30/19 79 22 128/56 96 High Flow 12:55 (80) 03/30/19 75 12:55 03/30/19 80 12:00 03/30/19 97.5 81 18 128/56 96 High Flow 12:00 (80) 03/30/19 85 22 151/63 96 High Flow 11:00 (92) 03/30/19 98 75 10:39 03/30/19 79 18 126/57 96 BIPAP 10:00 (80) 03/30/19 69 16 117/50 88 BIPAP 09:00 (72) 03/30/19 75 100 75 08:17 03/30/19 97.3 77 17 144/69 100 BIPAP 08:00 (94) 03/30/19 79 08:00 03/30/19 67 12 114/54 99 BIPAP 07:00 (74) 03/30/19 74 12 128/58 100 BIPAP 06:00 (81) 03/30/19 69 100 75 05:27 03/30/19 73 13 125/55 99 BIPAP 05:00 (78) 03/30/19 97.9 69 16 109/49 100 BIPAP 04:00 (69) 03/30/19 68 04:00 03/30/19 71 100 75 03:07 03/30/19 67 19 102/51 98 BIPAP 03:00 (68) 03/30/19 68 16 103/46 99 BIPAP 02:00 (65) 03/30/19 73 100 75 01:05 03/30/19 72 22 101/48 100 BIPAP 01:00 (65) 03/30/19 77 00:00 03/30/19 98.2 76 16 125/55 100 BIPAP 00:00 (78) 03/29/19 180 23:38 03/29/19 75 100 75 23:33 03/29/19 75 17 115/51 100 BIPAP 23:00 (72) 03/29/19 75 16 110/49 93 BIPAP 22:00 (69) 03/29/19 75 100 75 21:03 03/29/19 78 17 130/57 98 BIPAP 21:00 (81) 03/29/19 78 20:00 03/29/19 98.4 79 18 125/54 98 BIPAP 20:00 (77) 03/29/19 76 100 75 19:18 03/29/19 77 15 122/56 97 BIPAP 19:00 (78) 03/29/19 76 22 123/54 86 BIPAP 18:00 (77) 03/29/19 78 100 75 17:35 03/29/19 80 19 134/59 98 BIPAP 17:00 (84) 03/29/19 77 16:00 03/29/19 98.3 78 16 132/60 100 BIPAP 16:00 (84) 03/29/19 79 100 75 15:52 03/29/19 77 16 127/61 100 BIPAP 15:00 (83) 03/29/19 79 20 130/56 100 BIPAP 14:00 (80) 03/29/19 77 18 130/58 100 BIPAP 13:18 (82) 03/29/19 77 100 85 13:18 03/29/19 77 17 126/60 98 BIPAP 13:00 (82) 03/29/19 74 12:55 03/29/19 75 12:40 03/29/19 75 12:25 03/29/19 78 12:10 03/29/19 79 12:00 03/29/19 98.3 79 19 121/60 97 BIPAP 12:00 (80) 03/29/19 78 11:55 03/29/19 79 11:35 03/29/19 80 98 85 11:33 03/29/19 81 11:20 03/29/19 81 11:05 03/29/19 80 19 114/62 93 BIPAP 11:00 (79) 03/29/19 90 10:54 03/29/19 76 10:50 03/29/19 76 10:35 03/29/19 76 10:20 03/29/19 80 10:05 03/29/19 80 20 125/58 96 BIPAP 10:00 (80) 03/29/19 80 09:50 03/29/19 82 18 126/65 97 BIPAP 09:50 (85) 03/29/19 81 99 80 09:20 03/29/19 82 16 129/58 98 BIPAP 09:00 (81) 03/29/19 82 100 90 08:05 03/29/19 84 08:00 03/29/19 98.5 82 19 127/64 99 BIPAP 08:00 (85) 03/29/19 82 17 122/59 100 BIPAP 07:00 (80) 03/29/19 81 21 120/58 98 BIPAP 06:00 (78) 03/29/19 82 98 100 05:30 03/29/19 81 19 130/58 97 BIPAP 05:00 (82) 03/29/19 80 04:00 03/29/19 98.6 80 17 134/58 98 BIPAP 04:00 (83) 03/29/19 72 99 100 03:35 03/29/19 72 15 105/52 99 BIPAP 03:00 (69) 03/29/19 77 19 123/63 96 BIPAP 02:00 (83) 03/29/19 80 96 100 01:05 03/29/19 79 24 146/66 92 BIPAP 01:00 (92) 03/29/19 79 00:00 03/29/19 98.8 80 25 143/72 96 BIPAP 00:00 (95) 03/28/19 79 95 100 23:30 03/28/19 81 22 142/71 92 BIPAP 23:00 (94) 03/28/19 79 20 140/69 94 BIPAP 22:00 (92) 03/28/19 91 26 170/74 91 BIPAP 21:00 (106) 03/28/19 84 94 100 21:00 03/28/19 87 22 92 100 20:21 03/28/19 92 100 20:21 03/28/19 87 20:00 03/28/19 98.1 83 38 129/64 91 20:00 (85) 03/28/19 100 19:30 03/28/19 87 24 136/68 92 19:00 (90) 03/28/19 96 90 17:49 03/28/19 76 15 112/58 92 17:00 (76) 03/28/19 80 16:00 03/28/19 99.1 80 12 121/67 99 16:00 (85) 03/28/19 87 27 139/69 97 15:00 (92) 03/28/19 93 26 162/77 86 14:00 (105) 03/28/19 99 100 13:30 03/28/19 8.0 13:25 03/28/19 92 17 152/70 91 Nasal 13:00 (97) Cannula 03/28/19 6.0 12:55 03/28/19 82 12:00 03/28/19 98.2 86 22 173/74 98 BIPAP 12:00 (107) 03/28/19 86 12:00 03/28/19 80 11:45 03/28/19 77 11:30 03/28/19 79 11:15 03/28/19 80 11:00 03/28/19 79 16 113/64 94 BIPAP 11:00 (80) 03/28/19 79 10:45 03/28/19 80 10:30 03/28/19 78 10:15 03/28/19 77 16 136/69 94 BIPAP 10:00 (91) 03/28/19 76 10:00 03/28/19 74 96 60 09:52 03/28/19 77 09:45 03/28/19 74 09:30 03/28/19 73 09:15 03/28/19 81 18 132/65 95 BIPAP 09:00 (87) 03/28/19 74 14 150/72 94 BIPAP 09:00 (98) 03/28/19 73 09:00 03/28/19 75 97 70 08:48 03/28/19 97.6 84 20 156/72 96 BIPAP 08:00 (100) 03/28/19 Bag Valve 08:00 Mask 03/28/19 87 08:00 03/28/19 79 20 141/71 97 BIPAP 07:00 (94) 03/28/19 98.2 82 20 145/69 98 BIPAP 06:00 (94) 03/28/19 97.9 81 16 141/83 97 BIPAP 05:00 (102) 03/28/19 83 98 90 04:54 03/28/19 97.9 79 22 127/76 97 BIPAP 04:00 (93) 03/28/19 89 04:00 03/28/19 82 98 90 03:30 03/28/19 98.2 83 20 145/77 97 BIPAP 03:00 (99) 03/28/19 98.0 85 32 143/71 95 BIPAP 02:00 (95) 03/28/19 81 97 90 01:20 03/28/19 97.5 90 20 134/74 96 BIPAP 01:00 (94) 03/28/19 92 00:00 03/28/19 97.2 93 32 147/72 97 BIPAP 00:00 (97) 03/27/19 90 99 100 23:42 03/27/19 23 153/88 98 BIPAP 23:00 (109) 03/27/19 97.7 92 22 154/77 92 BIPAP 22:00 (102) 03/27/19 41 92 BIPAP 21:50 Vital Signs Date Temp Pulse Resp B/P (MAP) Pulse Ox O2 O2 Flow FiO2 Time Delivery Rate 03/30/19 82 14 116/53 93 High Flow 21:00 (74) 03/30/19 100 20:11 03/30/19 97.9 20:00 03/28/19 8.0 13:25 Intake and Output 03/29/19 03/29/19 03/30/19 1414:59 22:59 06:59 IntakeIntake Total 150 ml 100 ml 0 ml OutputOutput Total 4018 ml 10 ml 15 ml BalanceBalance -3868 ml 90 ml -15 ml Constitutional: alert, oriented, well developed Psych: no complaints, nl mood/affect Respiratory: crackles/rales (B) Cardiovascular: regular rate and rhythm; No nl pulses, No edema, No murmurs/extra sounds, No rub Gastrointestinal: soft, nl liver, spleen, non-tender, bowel sounds; No mass, No rebound or guarding Musculoskeletal: No nl extremities to inspection (R foot dressed) Extremities: No normal pulses, No cyanosis, No clubbing, No edema Neurological: [employer] II-XII intact, nl mental status, nl speech, nl strength Additional Comments Bedside Glucose - 72 Hours Test 03/28/19 00:39 03/28/19 05:43 03/28/19 08:08 03/28/19 12:45 Bedside 118 128 126 90 Glucose mg/dL (70-220) mg/dL (70-220) mg/dL (70-220) mg/dL (70-220) Test 03/28/19 18:10 03/28/19 20:54 03/29/19 09:56 03/29/19 13:39 Bedside 110 120 142 116 Glucose mg/dL (70-220) mg/dL (70-220) mg/dL (70-220) mg/dL (70-220) Test 03/29/19 17:34 03/29/19 21:31 03/30/19 00:44 03/30/19 05:17 Bedside 130 124 121 113 Glucose mg/dL (70-220) mg/dL (70-220) mg/dL (70-220) mg/dL (70-220) Test 03/30/19 09:19 03/30/19 13:21 03/30/19 17:26 03/30/19 21:11 Bedside 105 128 104 132 Glucose mg/dL (70-220) mg/dL (70-220) mg/dL (70-220) mg/dL (70-220) Results Results 24hrs Laboratory Tests Test 03/30/19 00:44 03/30/19 04:15 03/30/19 05:17 03/30/19 05:37 Bedside Glucose 121 113 White Blood Count 14.4 #H Red Blood Count 2.84 L Hemoglobin 8.3 L Hematocrit 26.1 L Mean Corpuscular 91.9 Volume Mean Corpuscular 29.2 Hemoglobin Mean Corpuscular 31.8 L Hemoglobin Concen t Red Cell 14.8 H Distribution Width Platelet Count 345 Mean Platelet 10.1 Volume Immature 0.800 H Granulocytes % Neutrophils % 85.6 H Lymphocytes % 6.4 L Monocytes % 6.5 Eosinophils % 0.6 Basophils % 0.1 Nucleated Red 0.3 H Blood Cells % Immature 0.110 H Granulocytes # Neutrophils # 12.3 H Lymphocytes # 0.9 Monocytes # 0.9 Eosinophils # 0.1 Basophils # 0.0 Nucleated Red 0.1 H Blood Cells # Sodium Level 141 Potassium Level 3.6 Chloride Level 101 Carbon Dioxide 27 Level Anion Gap 13 Blood Urea 49 H Nitrogen Creatinine 5.80 H Est Glomerular 10 L Filtrat Rate mL/min Glucose Level 109 # Calcium Level 8.5 Total Bilirubin 0.3 Direct Bilirubin 0.00 Indirect 0.3 Bilirubin Aspartate Amino 28 Transf (AST/SGOT) Alanine 24 Aminotransferase (ALT/SGPT) Alkaline 89 Phosphatase Total Protein 6.1 Albumin 3.1 L Globulin 3.00 Albumin/Globulin 1.03 Ratio Procalcitonin 8.70 H Random Vancomycin 16.1 Level Lab Scanned BLOOD TRANSFUSIO Report N Test 03/30/19 09:19 03/30/19 13:21 03/30/19 17:26 03/30/19 21:11 Bedside Glucose 105 128 104 132 Medications Medication Current Medications Albuterol (Proventil 0.083% (Neb)) 2.5 mg ICU RECOVERY PRN HHN .WHEEZING; Start 03/23/19 at 11:30 Aspirin (Aspirin) 325 mg DAILY PO Last administered on 03/30/19 10:02; Admin Dose 325 MG; Start 03/24/19 at 09:00 Amlodipine Besylate (Norvasc) 5 mg DAILY PO Last administered on 03/30/19 10:02; Admin Dose 5 MG; Start 03/24/19 at 09:00 Atorvastatin Calcium (Lipitor) 40 mg QHS PO Last administered on 03/30/19 21:02; Admin Dose 40 MG; Start 03/23/19 at 21:00 Carvedilol (Coreg) 12.5 mg BID PO Last administered on 03/30/19 21:03; Admin Dose 12.5 MG; Start 03/23/19 at 21:00 Linagliptin (Tradjenta) 5 mg DAILY PO Last administered on 03/28/19 12:38; Admin Dose 5 MG; Start 03/24/19 at 09:00 Ranitidine HCl (Zantac) 150 mg DAILY PO Last administered on 03/30/19 10:02; Admin Dose 150 MG; Start 03/24/19 at 09:00 Ondansetron HCl (Zofran Inj) 4 mg Q4H PRN IV NAUSEA AND/OR VOMITING Last administered on 03/28/19 20:28; Admin Dose 4 MG; Start 03/23/19 at 18:00 Metoclopramide HCl (Reglan) 10 mg Q6H PRN IV NAUSEA Last administered on 03/27/19 08:40; Admin Dose 10 MG; Start 03/23/19 at 18:00 Diagnostic Test (Pha) (Accu-Chek) 1 ea Q4 XX Last administered on 03/30/19 21 :13; Admin Dose 1 EA; Start 03/23/19 at 21:00 Hydromorphone HCl (Dilaudid) 2 mg Q4H PRN IV SEVERE PAIN LEVEL 7-10 Last administered on 03/30/19 00:42; Admin Dose 2 MG; Start 03/23/19 at 18:00 Miscellaneous Information 1 ea NOTE XX ; Start 03/23/19 at 18:30 Glucose (Glutose) 15 gm Q15M PRN PO DECREASED GLUCOSE; Start 03/23/19 at 18:30 Glucose (Glutose) 22.5 gm Q15M PRN PO DECREASED GLUCOSE; Start 03/23/19 at 18:30 Dextrose (D50w Syringe) 25 ml Q15M PRN IV DECREASED GLUCOSE; Start 03/23/19 at 18:30 Dextrose (D50w Syringe) 50 ml Q15M PRN IV DECREASED GLUCOSE; Start 03/23/19 at 18:30 Glucagon (Glucagen) 1 mg Q15M PRN IM DECREASED GLUCOSE; Start 03/23/19 at 18:30 Glucose (Glutose) 15 gm Q15M PRN BUCCAL DECREASED GLUCOSE; Start 03/23/19 at 18:30 Epoetin Joseph-epbx (Retacrit (Esrd)) 10,000 unit TuThSa@1700 SC Last administered on 03/28/19 18:14; Admin Dose 10,000 UNIT; Start 03/24/19 at 17:00 Acetaminophen/ Hydrocodone Bitart ([place] (5/325)) 1 tab Q6H PRN PO .MOD PAIN 4- 6 Last administered on 03/25/19 14:33; Admin Dose 1 TAB; Start 03/24/19 at 22:30 Calcium Acetate (Phoslo) 667 mg WITH MEALS PO Last administered on 03/30/19 18:04; Admin Dose 667 MG; Start 03/26/19 at 12:00 Albumin Human 100 ml @ 100 mls/hr WITH DIALYSIS PRN IV SBP <90 DURING DIALYSIS Last administered on 03/29/19 10:43; Admin Dose 100 MLS/HR; Start 03/27/19 at 12:00 Albuterol/ Ipratropium (Duoneb) 3 ml Q4HWA RESP THERAPY HHN Last administered on 03/30/19 20:46; Admin Dose 3 ML; Start 03/27/19 at 21:00 Heparin Sodium (Porcine) (Heparin (1000 Units/ml)) 3,000 unit AFTER DIALYSIS CATHETER Last administered on 03/30/19 15:52; Admin Dose 3,000 UNIT; Start 03/28/19 at 09:30 Magnesium Hydroxide (Milk Of Mag) 30 ml DAILY PRN PO CONSTIPATION Last administered on 03/28/19 20:48; Admin Dose 30 ML; Start 03/28/19 at 15:30 Sodium Biphosphate/ Sodium Phosphate (Fleet Enema) 133 ml DAILY PRN [place] CONSTIPATION Last administered on 03/29/19 14:30; Admin Dose 133 ML; Start 03/28/19 at 15:30 Diagnostic Test (Pha) (Accu-Chek) 1 ea 02 XX ; Start 03/30/19 at 02:00 Insulin Aspart (Novolog Insulin Pen) NOVOLOG *MILD* ALGORI... Q4 SC ; Start 03/29/19 at 09:00 Heparin Sodium (Porcine) (Heparin (5000 Units/1ml)) 5,000 unit BID SC Last administered on 03/30/19 21:05; Admin Dose 5,000 UNIT; Start 03/29/19 at 21:00 Metoclopramide HCl (Reglan) 5 mg Q6 IV Last administered on 03/30/19 18:05; Admin Dose 5 MG; Start 03/29/19 at 18:00 Meropenem/Sodium Chloride 50 ml @ 100 mls/hr Q24H IVPB Last administered on 03/30/19 18:05; Admin Dose 100 MLS/HR; Start 03/29/19 at 18:00 JOSE PARRY MD Mar 30, 2019 21:49
[2019-03-31] VITALS (26 sets, daily range): BP systolic 103–138; BP diastolic 47–91; PULSE 67–78; RESP 11–27
[2019-03-31] MEDS: METOCLOPRAMIDE 10 MG INJ IV SCH ×4 (00:51→17:03)
[2019-03-31] MEDS: INSULIN ASPART [NOVOLOG] 3 ML PEN SC SCH ×5 (00:56→20:29)
[2019-03-31] MEDS: ACCU-CHEK XX SCH ×6 (00:57→17:14)
[2019-03-31] MEDS: ALBUTEROL/IPRATROPIUM (NEB) 3 ML AMP HHN SCH ×4 (07:54→20:49)
--- NOTE | 2019-03-31 08:28 | CONS ---
Assessment/Plan Assessment/Plan Assessment/Plan 1. ARF with known CKD, do not anticipate return to baseline (Scr 4-4.6) and will need perm access. 2. CHF has resolved with aggressive UF on HD, next HD tomm, cards noted rev 3. Extensive bilat infiltrates, ID noted rev and CT of the chest with now less oxygen requirements. 4. Will need surgical intervention toes right foot when stable. 5. Anemia is stable 6. Can dc short catheter once a bit more mobile (was in chair yesterday) 7. CHO's are acceptable Consultation Date/Type/Reason Admit Date/Time Mar 23, 2019 at 06:13 Type of Consult Nephrology Date/Time of Note DATE: 03/31/19 TIME: 08:24 Respiratory: cough (slight), shortness of breath (mild) Cardiovascular: No no complaints Gastrointestinal: no complaints Genitourinary: No other (short cath in place) Exam/Review of Systems Vital Signs Vitals Vital Signs Date Temp Pulse Resp B/P (MAP) Pulse Ox O2 O2 Flow FiO2 Time Delivery Rate 03/31/19 96 45 07:55 03/31/19 75 16 Nasal 07:55 Cannula 03/31/19 122/61 06:00 (81) 03/31/19 98.4 04:00 03/28/19 8.0 13:25 Intake and Output 03/30/19 03/30/19 03/31/19 1515:00 23:00 07:00 IntakeIntake Total 380 ml 510 ml 0 ml OutputOutput Total 0 ml 3210 ml 15 ml BalanceBalance 380 ml -2700 ml -15 ml Exam Neck: jvd (HJR is minimal) Respiratory: clear to auscultation, diminished breath sounds Cardiovascular: regular rate and rhythm; No S3 Gastrointestinal: soft; No hepatomegaly, No splenomegaly, No tender Extremities: edema (less sacral edema) Labs Result Diagram: 03/31/19 0425 03/30/19 0415 Results 24hrs Laboratory Tests Test 03/30/19 09:19 03/30/19 13:21 03/30/19 17:26 03/30/19 21:11 Bedside Glucose 105 128 104 132 Test 03/31/19 00:56 03/31/19 04:25 03/31/19 04:29 Bedside Glucose 112 109 White Blood Count 9.4 # Red Blood Count 2.78 L Hemoglobin 8.1 L Hematocrit 25.4 L Mean Corpuscular 91.4 Volume Mean Corpuscular 29.1 Hemoglobin Mean Corpuscular 31.9 L Hemoglobin Concent Red Cell 14.7 H Distribution Width Platelet Count 339 Mean Platelet Volume 9.9 Immature 0.700 H Granulocytes % Neutrophils % 77.1 H Lymphocytes % 10.7 L Monocytes % 6.8 Eosinophils % 4.4 Basophils % 0.3 Nucleated Red Blood 0.3 H Cells % Immature 0.070 H Granulocytes # Neutrophils # 7.2 Lymphocytes # 1.0 Monocytes # 0.6 Eosinophils # 0.4 Basophils # 0.0 Nucleated Red Blood 0.0 Cells # Phosphorus Level 3.7 Medications Medications Current Medications Albuterol (Proventil 0.083% (Neb)) 2.5 mg ICU RECOVERY PRN HHN .WHEEZING; Start 03/23/19 at 11:30 Aspirin (Aspirin) 325 mg DAILY PO Last administered on 03/30/19 10:02; Admin Dose 325 MG; Start 03/24/19 at 09:00 Amlodipine Besylate (Norvasc) 5 mg DAILY PO Last administered on 03/30/19 10:02; Admin Dose 5 MG; Start 03/24/19 at 09:00 Atorvastatin Calcium (Lipitor) 40 mg QHS PO Last administered on 03/30/19 21:02; Admin Dose 40 MG; Start 03/23/19 at 21:00 Carvedilol (Coreg) 12.5 mg BID PO Last administered on 03/30/19 21:03; Admin Dose 12.5 MG; Start 03/23/19 at 21:00 Linagliptin (Tradjenta) 5 mg DAILY PO Last administered on 03/28/19 12:38; Admin Dose 5 MG; Start 03/24/19 at 09:00 Ranitidine HCl (Zantac) 150 mg DAILY PO Last administered on 03/30/19 10:02; Admin Dose 150 MG; Start 03/24/19 at 09:00 Ondansetron HCl (Zofran Inj) 4 mg Q4H PRN IV NAUSEA AND/OR VOMITING Last administered on 03/28/19 20:28; Admin Dose 4 MG; Start 03/23/19 at 18:00 Metoclopramide HCl (Reglan) 10 mg Q6H PRN IV NAUSEA Last administered on 03/27/19 08:40; Admin Dose 10 MG; Start 03/23/19 at 18:00 Diagnostic Test (Pha) (Accu-Chek) 1 ea Q4 XX Last administered on 03/31/19 04:48; Admin Dose 1 EA; Start 03/23/19 at 21:00 Hydromorphone HCl (Dilaudid) 2 mg Q4H PRN IV SEVERE PAIN LEVEL 7-10 Last administered on 03/30/19 00:42; Admin Dose 2 MG; Start 03/23/19 at 18:00 Miscellaneous Information 1 ea NOTE XX ; Start 03/23/19 at 18:30 Glucose (Glutose) 15 gm Q15M PRN PO DECREASED GLUCOSE; Start 03/23/19 at 18:30 Glucose (Glutose) 22.5 gm Q15M PRN PO DECREASED GLUCOSE; Start 03/23/19 at 18:30 Dextrose (D50w Syringe) 25 ml Q15M PRN IV DECREASED GLUCOSE; Start 03/23/19 at 18:30 Dextrose (D50w Syringe) 50 ml Q15M PRN IV DECREASED GLUCOSE; Start 03/23/19 at 1 8:30 Glucagon (Glucagen) 1 mg Q15M PRN IM DECREASED GLUCOSE; Start 03/23/19 at 18:30 Glucose (Glutose) 15 gm Q15M PRN BUCCAL DECREASED GLUCOSE; Start 03/23/19 at 18:30 Epoetin Joseph-epbx (Retacrit (Esrd)) 10,000 unit TuThSa@1700 SC Last administered on 03/28/19 18:14; Admin Dose 10,000 UNIT; Start 03/24/19 at 17:00 Acetaminophen/ Hydrocodone Bitart ([place] (5/325)) 1 tab Q6H PRN PO .MOD PAIN 4- 6 Last administered on 03/25/19 14:33; Admin Dose 1 TAB; Start 03/24/19 at 22:30 Calcium Acetate (Phoslo) 667 mg WITH MEALS PO Last administered on 03/30/19 18:04; Admin Dose 667 MG; Start 03/26/19 at 12:00 Albumin Human 100 ml @ 100 mls/hr WITH DIALYSIS PRN IV SBP <90 DURING DIALYSIS Last administered on 03/29/19 10:43; Admin Dose 100 MLS/HR; Start 03/27/19 at 12:00 Albuterol/ Ipratropium (Duoneb) 3 ml Q4HWA RESP THERAPY HHN Last administered on 03/31/19at 07:54; Admin Dose 3 ML; Start 03/27/19 at 21:00 Heparin Sodium (Porcine) (Heparin (1000 Units/ml)) 3,000 unit AFTER DIALYSIS CATHETER Last administered on 03/30/19 15:52; Admin Dose 3,000 UNIT; Start 03/28/19 at 09:30 Magnesium Hydroxide (Milk Of Mag) 30 ml DAILY PRN PO CONSTIPATION Last administered on 03/28/19 20:48; Admin Dose 30 ML; Start 03/28/19 at 15:30 Sodium Biphosphate/ Sodium Phosphate (Fleet Enema) 133 ml DAILY PRN [place] CONSTIPATION Last administered on 03/29/19 14:30; Admin Dose 133 ML; Start 03/28/19 at 15:30 Heparin Sodium (Porcine) (Heparin (5000 Units/1ml)) 5,000 unit BID SC Last administered on 03/30/19at 21:05; Admin Dose 5,000 UNIT; Start 03/29/19 at 21:00 Metoclopramide HCl (Reglan) 5 mg Q6 IV Last administered on 03/31/19at 06:42; Admin Dose 5 MG; Start 03/29/19 at 18:00 Meropenem/Sodium Chloride 50 ml @ 100 mls/hr Q24H IVPB Last administered on 03/30/19at 18:05; Admin Dose 100 MLS/HR; Start 03/29/19 at 18:00 Miscellaneous Information (* Miscellaneous Pharmacy Order) Discontinue current oral sulfonylur... ONCE ONCE XX ; Start 03/31/19 at 08:00; Stop 03/31/19 at 08:01; Status UNV Diagnostic Test (Pha) (Accu-Chek) 1 XX ; Start 04/01/19 at 02:00 Miscellaneous Information (* Miscellaneous Pharmacy Order) HYPOGLYCEMIA PROTOCOL w... ONCE ONCE XX ; Start 03/31/19 at 08:00; Stop 03/31/19 at 08:01; Status UNV Insulin Aspart (Novolog Insulin Pen) NOVOLOG *MILD* ALGORITHM WITH MEALS BEDTIME SC ; Start 03/31/19 at 11:30; Status UNV Miscellaneous Information (* Miscellaneous Pharmacy Order) Discontinue all previ... ONCE ONCE XX ; Start 03/31/19 at 08:00; Stop 03/31/19 at 08:01; Status UNV DOT ASHLEY MD Mar 31, 2019 08:28
[2019-03-31] MEDS: ASPIRIN 325 MG TAB PO SCH (08:50)
[2019-03-31] MEDS: CALCIUM ACETATE 667 MG CAP PO SCH ×3 (08:50→17:53)
[2019-03-31] MEDS: AMLODIPINE 5 MG TAB PO SCH (08:50)
[2019-03-31] MEDS: RANITIDINE 150 MG TAB PO SCH (08:51)
[2019-03-31] MEDS: LINAGLIPTIN 5 MG TABLET PO SCH (08:51)
[2019-03-31] MEDS: HEPARIN 5,000 UNIT/1 ML VIAL SC SCH ×2 (08:54→20:25)
--- NOTE | 2019-03-31 10:03 | CONS ---
Consult Date/Type/Reason Admit Date/Time Mar 23, 2019 at 06:13 Initial Consult Date 03/28/19 Type of Consult Pulmonary Requesting Provider: JOSE PARRY MD Date/Time of Note DATE: 03/31/19 TIME: 10:00 Subjective Slight improvement today on high flow O2 at 45% 30 L/min. Awake alert. Objective Vital Signs Date Temp Pulse Resp B/P (MAP) Pulse Ox O2 O2 Flow FiO2 Time Delivery Rate 03/31/19 74 08:00 03/31/19 96 45 07:55 03/31/19 16 Nasal 07:55 Cannula 03/31/19 122/61 06:00 (81) 03/31/19 98.4 04:00 03/28/19 8.0 13:25 Intake and Output 03/30/19 03/30/19 03/31/19 1515:00 23:00 07:00 IntakeIntake Total 380 ml 510 ml 0 ml OutputOutput Total 0 ml 3210 ml 15 ml BalanceBalance 380 ml -2700 ml -15 ml Exam GENERAL: VITAL SIGNS: gentleman on high flow O2 NECK: Supple. No JVD or lymphadenopathy. CARDIAC EXAM: S1, S2. No added sounds or murmurs. CHEST: Diminished air entry bilaterally ABDOMEN: Soft, nontender. No guarding or rebound. EXTREMITIES: No cyanosis, clubbing or edema. NEUROLOGIC: Generalized weakness. No focal deficits. Vent Setting Fraction of Inspired Oxygen pe: 45 Results/Medications Result Diagram: 03/31/19 0425 03/31/19 0425 Results 24 hrs Laboratory Tests Test 03/30/19 13:21 03/30/19 17:26 03/30/19 21:11 03/31/19 00:56 Bedside Glucose 128 104 132 112 Test 03/31/19 04:25 03/31/19 04:29 03/31/19 08:27 White Blood Count 9.4 # Red Blood Count 2.78 L Hemoglobin 8.1 L Hematocrit 25.4 L Mean Corpuscular 91.4 Volume Mean Corpuscular 29.1 Hemoglobin Mean Corpuscular 31.9 L Hemoglobin Concent Red Cell 14.7 H Distribution Width Platelet Count 339 Mean Platelet Volume 9.9 Immature 0.700 H Granulocytes % Neutrophils % 77.1 H Lymphocytes % 10.7 L Monocytes % 6.8 Eosinophils % 4.4 Basophils % 0.3 Nucleated Red Blood 0.3 H Cells % Immature 0.070 H Granulocytes # Neutrophils # 7.2 Lymphocytes # 1.0 Monocytes # 0.6 Eosinophils # 0.4 Basophils # 0.0 Nucleated Red Blood 0.0 Cells # Sodium Level 138 Potassium Level 4.1 Chloride Level 100 Carbon Dioxide Level 28 Anion Gap 10 Blood Urea Nitrogen 42 H Creatinine 4.71 #H Est Glomerular 12 L Filtrat Rate mL/min Glucose Level 104 Calcium Level 8.4 Phosphorus Level 3.7 Total Bilirubin 0.3 Direct Bilirubin 0.00 Indirect Bilirubin 0.3 Aspartate Amino 57 #H Transf (AST/SGOT) Alanine 33 Aminotransferase (AL T/SGPT) Alkaline Phosphatase 140 #H Total Protein 6.0 L Albumin 2.9 L Globulin 3.10 Albumin/Globulin 0.93 Ratio Bedside Glucose 109 114 Medications Current Medications Albuterol (Proventil 0.083% (Neb)) 2.5 mg ICU RECOVERY PRN HHN .WHEEZING; Start 03/23/19 at 11:30 Aspirin (Aspirin) 325 mg DAILY PO Last administered on 03/31/19 08:50; Admin Dose 325 MG; Start 03/24/19 at 09:00 Amlodipine Besylate (Norvasc) 5 mg DAILY PO Last administered on 03/31/19 08:50; Admin Dose 5 MG; Start 03/24/19 at 09:00 Atorvastatin Calcium (Lipitor) 40 mg QHS PO Last administered on 03/30/19 21:02; Admin Dose 40 MG; Start 03/23/19 at 21:00 Carvedilol (Coreg) 12.5 mg BID PO Last administered on 03/31/19 08:51; Admin Dose 12.5 MG; Start 03/23/19 at 21:00 Linagliptin (Tradjenta) 5 mg DAILY PO Last administered on 03/31/19 08:51; Admin Dose 5 MG; Start 03/24/19 at 09:00 Ranitidine HCl (Zantac) 150 mg DAILY PO Last administered on 03/31/19 08:51; Admin Dose 150 MG; Start 03/24/19 at 09:00 Ondansetron HCl (Zofran Inj) 4 mg Q4H PRN IV NAUSEA AND/OR VOMITING Last administered on 03/28/19 20:28; Admin Dose 4 MG; Start 03/23/19 at 18:00 Metoclopramide HCl (Reglan) 10 mg Q6H PRN IV NAUSEA Last administered on 03/27/19 08:40; Admin Dose 10 MG; Start 03/23/19 at 18:00 Diagnostic Test (Pha) (Accu-Chek) 1 ea Q4 XX Last administered on 03/31/19at 08:55; Admin Dose 1 EA; Start 03/23/19 at 21:00 Hydromorphone HCl (Dilaudid) 2 mg Q4H PRN IV SEVERE PAIN LEVEL 7-10 Last administered on 03/30/19 00:42; Admin Dose 2 MG; Start 03/23/19 at 18:00 Miscellaneous Information 1 ea NOTE XX ; Start 03/23/19 at 18:30 Glucose (Glutose) 15 gm Q15M PRN PO DECREASED GLUCOSE; Start 03/23/19 at 18:30 Glucose (Glutose) 22.5 gm Q15M PRN PO DECREASED GLUCOSE; Start 03/23/19 at 18:30 Dextrose (D50w Syringe) 25 ml Q15M PRN IV DECREASED GLUCOSE; Start 03/23/19 at 18:30 Dextrose (D50w Syringe) 50 ml Q15M PRN IV DECREASED GLUCOSE; Start 03/23/19 at 18:30 Glucagon (Glucagen) 1 mg Q15M PRN IM DECREASED GLUCOSE; Start 03/23/19 at 18:30 Glucose (Glutose) 15 gm Q15M PRN BUCCAL DECREASED GLUCOSE; Start 03/23/19 at 18:30 Epoetin Joseph-epbx (Retacrit (Esrd)) 10,000 unit TuThSa@1700 SC Last administered on 03/28/19at 18:14; Admin Dose 10,000 UNIT; Start 03/24/19 at 17:00 Acetaminophen/ Hydrocodone Bitart ([place] (5/325)) 1 tab Q6H PRN PO .MOD PAIN 4- 6 Last administered on 03/25/19at 14:33; Admin Dose 1 TAB; Start 03/24/19 at 22:30 Calcium Acetate (Phoslo) 667 mg WITH MEALS PO Last administered on 03/31/19at 08:50; Admin Dose 667 MG; Start 03/26/19 at 12:00 Albumin Human 100 ml @ 100 mls/hr WITH DIALYSIS PRN IV SBP <90 DURING DIALYSIS Last administered on 03/29/19 10:43; Admin Dose 100 MLS/HR; Start 03/27/19 at 12:00 Albuterol/ Ipratropium (Duoneb) 3 ml Q4HWA RESP THERAPY HHN Last administered on 03/31/19 07:54; Admin Dose 3 ML; Start 03/27/19 at 21:00 Heparin Sodium (Porcine) (Heparin (1000 Units/ml)) 3,000 unit AFTER DIALYSIS CATHETER Last administered on 03/30/19 15:52; Admin Dose 3,000 UNIT; Start 03/28/19 at 09:30 Magnesium Hydroxide (Milk Of Mag) 30 ml DAILY PRN PO CONSTIPATION Last administered on 03/28/19 20:48; Admin Dose 30 ML; Start 03/28/19 at 15:30 Heparin Sodium (Porcine) (Heparin (5000 Units/1ml)) 5,000 unit BID SC Last administered on 03/31/19 08:54; Admin Dose 5,000 UNIT; Start 03/29/19 at 21:00 Metoclopramide HCl (Reglan) 5 mg Q6 IV Last administered on 03/31/19 06:42; Admin Dose 5 MG; Start 03/29/19 at 18:00 Meropenem/Sodium Chloride 50 ml @ 100 mls/hr Q24H IVPB Last administered on 03/30/19 18:05; Admin Dose 100 MLS/HR; Start 03/29/19 at 18:00 Diagnostic Test (Pha) (Accu-Chek) 1 ea 02 XX ; Start 04/01/19 at 02:00 Insulin Aspart (Novolog Insulin Pen) NOVOLOG *MILD* ALGORITHM WITH MEALS BEDTIME SC ; Start 03/31/19 at 11:30 Assessment/Plan Hospital Course (Demo Recall) IMPRESSION: 1. Acute hypoxemic respiratory failure requiring BiPAP support. Chest x-ray demonstrates pulmonary edema With small right effusion. 2. Acute on chronic renal failure, now requiring dialysis. 3. Peripheral vascular disease, status post revascularization. 4. Likely aspiration pneumonia as well. 5. Diabetes mellitus. 6. History of hypertension. 7. Benign prostatic hypertrophy. RECOMMENDATIONS: 1. Continue BiPAP for now. Trial of high flow O2 2. Aspiration precautions 3. Empiric trial of steroids possible cryptogenic organizing pneumonia. 4. Hemodialysis per nephrology. Critical care time 40 minutes. DMITRI PAIGE MD, [facility] Mar 31, 2019 10:03
[2019-03-31] MEDS: METHYLPREDNISOLONE 125 MG INJ IV SCH ×3 (12:36→22:21)
--- NOTE | 2019-03-31 13:16 | CONS ---
Assessment/Plan Assessment/Plan Hospital Course (Demo Recall) assessment/impression - acute hypoxic resp failure, probably multifactorial: first, fluid overload. Pt's oxygenation improved after undergoing dialysis and so fluid overload is a significant factor. Second, I suspect aspiration pneumonia/pneumonitis. Pt reportedly was having spells of congested cough upon arrival at ICU. Pt has h/o "excessive saliva production" since 08/2018 according to Pt's daughter in law. This increases a risk of aspiration pneumonia and/or pneumonitis. 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, Pt is scheduled to get R TMA once his acute illness resolves - s/p R SFA to posterior tibial bypass using in situ greater saphenous vein from R thigh and calf on 03/23/2019 - former smoker - constipation recommendations: - continue renally dosed meropenem (03/29/19-); Pt completed pip/tazo (03/25/19-03/28/19) and IV vancomycin (03/25/19-03/30/19) management d/w Pt, his family members, VIC [place] the critical care time I took to care for this Pt today was from 1300 to 1330 Consultation Date/Type/Reason Admit Date/Time Mar 23, 2019 at 06:13 Initial Consult Date 03/28/19 Type of Consult ID Requesting Provider: JOSE PARRY MD Date/Time of Note DATE: 03/31/19 TIME: 13:16 24 HR Interval Summary Constitutional: improved Detailed Summary Eyes: no complaints ENT: no complaints Respiratory: cough, shortness of breath, sputum; No pleuritic pain Cardiovascular: no complaints Gastrointestinal: no complaints Genitourinary: no complaints Musculoskeletal: no complaints Skin: no complaints Neurologic: No headache Exam/Review of Systems Exam Vitals Vital Signs Date Temp Pulse Resp B/P (MAP) Pulse Ox O2 O2 Flow FiO2 Time Delivery Rate 03/31/19 70 12:00 03/31/19 96 45 07:55 7/16/19 16 Nasal 07:55 Cannula 03/31/19 122/61 06:00 (81) 03/31/19 98.4 04:00 03/28/19 8.0 13:25 Intake and Output 03/30/19 03/30/19 03/31/19 1515:00 23:00 07:00 IntakeIntake Total 380 ml 510 ml 0 ml OutputOutput Total 0 ml 3210 ml 15 ml BalanceBalance 380 ml -2700 ml -15 ml Constitutional: non-verbal Psych: no complaints Head: normocephalic Eyes: nl conjunctiva ENMT: nl external ears & nose Neck: supple Respiratory: crackles/rales Cardiovascular: regular rate and rhythm, nl pulses, other (the bypass site of RLE is clean and covered) Gastrointestinal: soft, non-tender; No distended Musculoskeletal: other (gangrene of [id number] toes) Extremities: edema Neurological: other (more awake) Results Result Diagram: 03/31/19 0425 03/31/19 0425 Results 24hrs Laboratory Tests Test 03/30/19 13:21 03/30/19 17:26 03/30/19 21:11 03/31/19 00:56 Bedside Glucose 128 104 132 112 Test 03/31/19 04:25 03/31/19 04:29 03/31/19 08:27 03/31/19 12:31 White Blood Count 9.4 # Red Blood Count 2.78 L Hemoglobin 8.1 L Hematocrit 25.4 L Mean Corpuscular 91.4 Volume Mean Corpuscular 29.1 Hemoglobin Mean Corpuscular 31.9 L Hemoglobin Concent Red Cell 14.7 H Distribution Width Platelet Count 339 Mean Platelet Volume 9.9 Immature 0.700 H Granulocytes % Neutrophils % 77.1 H Lymphocytes % 10.7 L Monocytes % 6.8 Eosinophils % 4.4 Basophils % 0.3 Nucleated Red Blood 0.3 H Cells % Immature 0.070 H Granulocytes # Neutrophils # 7.2 Lymphocytes # 1.0 Monocytes # 0.6 Eosinophils # 0.4 Basophils # 0.0 Nucleated Red Blood 0.0 Cells # Sodium Level 138 Potassium Level 4.1 Chloride Level 100 Carbon Dioxide Level 28 Anion Gap 10 Blood Urea Nitrogen 42 H Creatinine 4.71 #H Est Glomerular 12 L Filtrat Rate mL/min Glucose Level 104 Calcium Level 8.4 Phosphorus Level 3.7 Total Bilirubin 0.3 Direct Bilirubin 0.00 Indirect Bilirubin 0.3 Aspartate Amino 57 #H Transf (AST/SGOT) Alanine 33 Aminotransferase (AL T/SGPT) Alkaline Phosphatase 140 #H Total Protein 6.0 L Albumin 2.9 L Globulin 3.10 Albumin/Globulin 0.93 Ratio Bedside Glucose 109 114 157 Medications Medication Current Medications Albuterol (Proventil 0.083% (Neb)) 2.5 mg ICU RECOVERY PRN HHN .WHEEZING; Start 03/23/19 at 11:30 Aspirin (Aspirin) 325 mg DAILY PO Last administered on 03/31/19 08:50; Admin Dose 325 MG; Start 03/24/19 at 09:00 Amlodipine Besylate (Norvasc) 5 mg DAILY PO Last administered on 03/31/19 08:50; Admin Dose 5 MG; Start 03/24/19 at 09:00 Atorvastatin Calcium (Lipitor) 40 mg QHS PO Last administered on 03/30/19 21:02; Admin Dose 40 MG; Start 03/23/19 at 21:00 Carvedilol (Coreg) 12.5 mg BID PO Last administered on 03/31/19 08:51; Admin Dose 12.5 MG; Start 03/23/19 at 21:00 Linagliptin (Tradjenta) 5 mg DAILY PO Last administered on 03/31/19 08:51; Ad min Dose 5 MG; Start 03/24/19 at 09:00 Ranitidine HCl (Zantac) 150 mg DAILY PO Last administered on 03/31/19 08:51; Admin Dose 150 MG; Start 03/24/19 at 09:00 Ondansetron HCl (Zofran Inj) 4 mg Q4H PRN IV NAUSEA AND/OR VOMITING Last administered on 03/28/19 20:28; Admin Dose 4 MG; Start 03/23/19 at 18:00 Metoclopramide HCl (Reglan) 10 mg Q6H PRN IV NAUSEA Last administered on 03/27/19 08:40; Admin Dose 10 MG; Start 03/23/19 at 18:00 Diagnostic Test (Pha) (Accu-Chek) 1 ea Q4 XX Last administered on 03/31/19 08:55; Admin Dose 1 EA; Start 03/23/19 at 21:00 Hydromorphone HCl (Dilaudid) 2 mg Q4H PRN IV SEVERE PAIN LEVEL 7-10 Last administered on 03/30/19at 00:42; Admin Dose 2 MG; Start 03/23/19 at 18:00 Miscellaneous Information 1 ea NOTE XX ; Start 03/23/19 at 18:30 Glucose (Glutose) 15 gm Q15M PRN PO DECREASED GLUCOSE; Start 03/23/19 at 18:30 Glucose (Glutose) 22.5 gm Q15M PRN PO DECREASED GLUCOSE; Start 03/23/19 at 18:30 Dextrose (D50w Syringe) 25 ml Q15M PRN IV DECREASED GLUCOSE; Start 03/23/19 at 18:30 Dextrose (D50w Syringe) 50 ml Q15M PRN IV DECREASED GLUCOSE; Start 03/23/19 at 18:30 Glucagon (Glucagen) 1 mg Q15M PRN IM DECREASED GLUCOSE; Start 03/23/19 at 18:30 Glucose (Glutose) 15 gm Q15M PRN BUCCAL DECREASED GLUCOSE; Start 03/23/19 at 18:30 Epoetin Joseph-epbx (Retacrit (Esrd)) 10,000 unit TuThSa@1700 SC Last administered on 03/28/19 18:14; Admin Dose 10,000 UNIT; Start 03/24/19 at 17:00 Acetaminophen/ Hydrocodone Bitart ([place] (5/325)) 1 tab Q6H PRN PO .MOD PAIN 4- 6 Last administered on 03/25/19at 14:33; Admin Dose 1 TAB; Start 03/24/19 at 22:30 Calcium Acetate (Phoslo) 667 mg WITH MEALS PO Last administered on 03/31/19at 12:35; Admin Dose 667 MG; Start 03/26/19 at 12:00 Albumin Human 100 ml @ 100 mls/hr WITH DIALYSIS PRN IV SBP <90 DURING DIALYSIS Last administered on 03/29/19at 10:43; Admin Dose 100 MLS/HR; Start 03/27/19 at 12:00 Albuterol/ Ipratropium (Duoneb) 3 ml Q4HWA RESP THERAPY HHN Last administered on 03/31/19 13:13; Admin Dose 3 ML; Start 03/27/19 at 21:00 Heparin Sodium (Porcine) (Heparin (1000 Units/ml)) 3,000 unit AFTER DIALYSIS CATHETER Last administered on 03/30/19 15:52; Admin Dose 3,000 UNIT; Start 03/28/19 at 09:30 Magnesium Hydroxide (Milk Of Mag) 30 ml DAILY PRN PO CONSTIPATION Last administered on 03/28/19 20:48; Admin Dose 30 ML; Start 03/28/19 at 15:30 Heparin Sodium (Porcine) (Heparin (5000 Units/1ml)) 5,000 unit BID SC Last administered on 03/31/19 08:54; Admin Dose 5,000 UNIT; Start 03/29/19 at 21:00 Metoclopramide HCl (Reglan) 5 mg Q6 IV Last administered on 03/31/19 12:35; Admin Dose 5 MG; Start 03/29/19 at 18:00 Meropenem/Sodium Chloride 50 ml @ 100 mls/hr Q24H IVPB Last administered on 03/30/19 18:05; Admin Dose 100 MLS/HR; Start 03/29/19 at 18:00 Diagnostic Test (Pha) (Accu-Chek) 1 ea 02 XX ; Start 04/01/19 at 02:00 Insulin Aspart (Novolog Insulin Pen) NOVOLOG *MILD* ALGORITHM WITH MEALS BEDTI ME SC Last administered on 03/31/19 12:57; Admin Dose 1 UNIT; Start 03/31/19 at 11:30 Methylprednisolone Sodium Succinate (Solu-Medrol) 60 mg Q8 IV Last administered on 03/31/19 12:36; Admin Dose 60 MG; Start 03/31/19 at 10:30 LUDMILA ANTOINE M.D. Mar 31, 2019 13:16
--- NOTE | 2019-03-31 15:50 | CONS ---
Assessment/Plan Assessment/Plan Hospital Course (Demo Recall) Acute respiratory failure Acute kidney injury on hemodialysis Peripheral arterial disease status post bypass Hypertension Preserved left ventricular ejection fraction echocardiogram January 2019 Fluid management via hemodialysis as per nephrology Currently on high flow oxygen and feeling less short of breath Continue statin and aspirin therapy if able to take p.o., if no contraindication, change asa to 81mg daily Consultation Date/Type/Reason Admit Date/Time Mar 23, 2019 at 06:13 Initial Consult Date 03/28/19 Type of Consult Cardiology Requesting Provider: JOSE PARRY MD Date/Time of Note DATE: 03/31/19 TIME: 15:49 24 HR Interval Summary Free Text/Dictation Shortness of breath is better. No chest pain, palpitations Exam/Review of Systems Vital Signs Vitals Vital Signs Date Temp Pulse Resp B/P (MAP) Pulse Ox O2 O2 Flow FiO2 Time Delivery Rate 03/31/19 70 15 116/59 91 High Flow 15:00 (78) 03/31/19 45 13:17 03/31/19 98.3 12:00 03/28/19 8.0 13:25 Intake and Output 03/30/19 03/30/19 03/31/19 1515:00 23:00 07:00 IntakeIntake Total 380 ml 510 ml 0 ml OutputOutput Total 0 ml 3210 ml 15 ml BalanceBalance 380 ml -2700 ml -15 ml Exam Constitutional: alert, oriented Head: normocephalic Respiratory: other (Coarse breath sounds bilaterally, scattered rhonchi) Cardiovascular: regular rate and rhythm (S1-S2 heard) Gastrointestinal: soft, non-tender, bowel sounds Extremities: edema Labs Result Diagram: 03/31/19 0425 03/31/19 0425 Results 24hrs Laboratory Tests Test 03/30/19 17:26 03/30/19 21:11 03/31/19 00:56 03/31/19 04:25 Bedside Glucose 104 132 112 White Blood Count 9.4 # Red Blood Count 2.78 L Hemoglobin 8.1 L Hematocrit 25.4 L Mean Corpuscular 91.4 Volume Mean Corpuscular 29.1 Hemoglobin Mean Corpuscular 31.9 L Hemoglobin Concent Red Cell 14.7 H Distribution Width Platelet Count 339 Mean Platelet Volume 9.9 Immature 0.700 H Granulocytes % Neutrophils % 77.1 H Lymphocytes % 10.7 L Monocytes % 6.8 Eosinophils % 4.4 Basophils % 0.3 Nucleated Red Blood 0.3 H Cells % Immature 0.070 H Granulocytes # Neutrophils # 7.2 Lymphocytes # 1.0 Monocytes # 0.6 Eosinophils # 0.4 Basophils # 0.0 Nucleated Red Blood 0.0 Cells # Sodium Level 138 Potassium Level 4.1 Chloride Level 100 Carbon Dioxide Level 28 Anion Gap 10 Blood Urea Nitrogen 42 H Creatinine 4.71 #H Est Glomerular 12 L Filtrat Rate mL/min Glucose Level 104 Calcium Level 8.4 Phosphorus Level 3.7 Total Bilirubin 0.3 Direct Bilirubin 0.00 Indirect Bilirubin 0.3 Aspartate Amino 57 #H Transf (AST/SGOT) Alanine 33 Aminotransferase (AL T/SGPT) Alkaline Phosphatase 140 #H Total Protein 6.0 L Albumin 2.9 L Globulin 3.10 Albumin/Globulin 0.93 Ratio Procalcitonin 7.10 H Test 03/31/19 04:29 03/31/19 08:27 03/31/19 12:31 Bedside Glucose 109 114 157 Medications Medications Current Medications Albuterol (Proventil 0.083% (Neb)) 2.5 mg ICU RECOVERY PRN HHN .WHEEZING; Start 03/23/19 at 11:30 Aspirin (Aspirin) 325 mg DAILY PO Last administered on 03/31/19 08:50; Admin Dose 325 MG; Start 03/24/19 at 09:00 Amlodipine Besylate (Norvasc) 5 mg DAILY PO Last administered on 03/31/19 08:50; Admin Dose 5 MG; Start 03/24/19 at 09:00 Atorvastatin Calcium (Lipitor) 40 mg QHS PO Last administered on 03/30/19 21:02; Admin Dose 40 MG; Start 03/23/19 at 21:00 Carvedilol (Coreg) 12.5 mg BID PO Last administered on 03/31/19 08:51; Admin Dose 12.5 MG; Start 03/23/19 at 21:00 Linagliptin (Tradjenta) 5 mg DAILY PO Last administered on 03/31/19 08:51; Admin Dose 5 MG; Start 03/24/19 at 09:00 Ranitidine HCl (Zantac) 150 mg DAILY PO Last administered on 03/31/19 08:51; Admin Dose 150 MG; Start 03/24/19 at 09:00 Ondansetron HCl (Zofran Inj) 4 mg Q4H PRN IV NAUSEA AND/OR VOMITING Last administered on 03/28/19 20:28; Admin Dose 4 MG; Start 03/23/19 at 18:00 Metoclopramide HCl (Reglan) 10 mg Q6H PRN IV NAUSEA Last administered on 03/27/19 08:40; Admin Dose 10 MG; Start 03/23/19 at 18:00 Diagnostic Test (Pha) (Accu-Chek) 1 ea Q4 XX Last administered on 03/31/19 08:55; Admin Dose 1 EA; Start 03/23/19 at 21:00 Hydromorphone HCl (Dilaudid) 2 mg Q4H PRN IV SEVERE PAIN LEVEL 7-10 Last administered on 03/30/19 00:42; Admin Dose 2 MG; Start 03/23/19 at 18:00 Miscellaneous Information 1 ea NOTE XX ; Start 03/23/19 at 18:30 Glucose (Glutose) 15 gm Q15M PRN PO DECREASED GLUCOSE; Start 03/23/19 at 18:30 Glucose (Glutose) 22.5 gm Q15M PRN PO DECREASED GLUCOSE; Start 03/23/19 at 18:30 Dextrose (D50w Syringe) 25 ml Q15M PRN IV DECREASED GLUCOSE; Start 03/23/19 at 18:30 Dextrose (D50w Syringe) 50 ml Q15M PRN IV DECREASED GLUCOSE; Start 03/23/19 at 18:30 Glucagon (Glucagen) 1 mg Q15M PRN IM DECREASED GLUCOSE; Start 03/23/19 at 18:30 Glucose (Glutose) 15 gm Q15M PRN BUCCAL DECREASED GLUCOSE; Start 03/23/19 at 18:30 Epoetin Joseph-epbx (Retacrit (Esrd)) 10,000 unit TuThSa@1700 SC Last administered on 03/28/19 18:14; Admin Dose 10,000 UNIT; Start 03/24/19 at 17:00 Acetaminophen/ Hydrocodone Bitart ([place] (5/325)) 1 tab Q6H PRN PO .MOD PAIN 4- 6 Last administered on 03/25/19 14:33; Admin Dose 1 TAB; Start 03/24/19 at 22:30 Calcium Acetate (Phoslo) 667 mg WITH MEALS PO Last administered on 03/31/19 12:35; Admin Dose 667 MG; Start 03/26/19 at 12:00 Albumin Human 100 ml @ 100 mls/hr WITH DIALYSIS PRN IV SBP <90 DURING DIALYSIS Last administered on 03/29/19 10:43; Admin Dose 100 MLS/HR; Start 03/27/19 at 12:00 Albuterol/ Ipratropium (Duoneb) 3 ml Q4HWA RESP THERAPY HHN Last administered on 03/31/19 13:13; Admin Dose 3 ML; Start 03/27/19 at 21:00 Heparin Sodium (Porcine) (Heparin (1000 Units/ml)) 3,000 unit AFTER DIALYSIS CATHETER Last administered on 03/30/19 15:52; Admin Dose 3,000 UNIT; Start 03/28/19 at 09:30 Magnesium Hydroxide (Milk Of Mag) 30 ml DAILY PRN PO CONSTIPATION Last administered on 03/28/19 20:48; Admin Dose 30 ML; Start 03/28/19 at 15:30 Heparin Sodium (Porcine) (Heparin (5000 Units/1ml)) 5,000 unit BID SC Last administered on 03/31/19 08:54; Admin Dose 5,000 UNIT; Start 03/29/19 at 21:00 Metoclopramide HCl (Reglan) 5 mg Q6 IV Last administered on 03/31/19 12:35; Admin Dose 5 MG; Start 03/29/19 at 18:00 Meropenem/Sodium Chloride 50 ml @ 100 mls/hr Q24H IVPB Last administered on 03/30/19 18:05; Admin Dose 100 MLS/HR; Start 03/29/19 at 18:00 Diagnostic Test (Pha) (Accu-Chek) 1 ea 02 XX ; Start 04/01/19 at 02:00 Insulin Aspart (Novolog Insulin Pen) NOVOLOG *MILD* ALGORITHM WITH MEALS BEDTIME SC Last administered on 03/31/19 12:57; Admin Dose 1 UNIT; Start 03/31/19 at 11:30 Methylprednisolone Sodium Succinate (Solu-Medrol) 60 mg Q8 IV Last administered on 03/31/19 12:36; Admin Dose 60 MG; Start 03/31/19 at 10:30 Jose Richard DO Mar 31, 2019 15:50
[2019-03-31] MEDS: HYDROmorphONE 2 MG/ML SYG IV PRN (17:00)
[2019-03-31] MEDS: MEROPENEM 500MG/50 ML (PMX) 50 ML IVPB SCH (17:54)
[2019-03-31] MEDS: EPOETIN ALFA-EPBX (ESRD) 10,000 UNIT/ML VIAL SC SCH (17:54)
--- NOTE | 2019-03-31 17:57 | PN ---
Date/Time of Note Date/Time of Note DATE: 03/31/19 TIME: 17:51 Assessment/Plan VTE Prophylaxis [place] [facility] [place]: 11 [place]CD applied [place] [facility] [place] SCD contraindicated: bilateral LE trauma Pharmacological prophylaxis: heparin Lines/Catheters IV [facility] Type [facility]from [facility] Kalyan Urinary Cath still in place: Yes Reason Cath still needed: urinary retention Assessment/Plan Problems: (1) Acute respiratory failure with hypoxia Status: Acute Comment: Improving. On less O2. Pulmonary initiated medrol. Cont. HD per nephrology and meropenem per ID. Will monitor. (2) Nosocomial pneumonia Status: Acute Comment: S/p 1 week vanco/zosyn. Cont. meropenem per ID (3) Acute on chronic renal failure Status: Acute Comment: Cont. HD per nephrology (4) Leukocytosis Status: Resolved (5) Type 2 diabetes mellitus with diabetic peripheral angiopathy without gangrene Status: Chronic Comment: BG slightly higher on medrol. Before initiating NPH low dose q8, will try simply increasing intensity of ISS. If ineffective and BG above goal consistently, will initiate NPH tomorrow. (6) Essential (primary) hypertension Status: Chronic Comment: Controlled. Cont. current regimen (7) Hyperlipidemia Status: Chronic Comment: Cont. statin (8) Benign prostatic hyperplasia with urinary obstruction Status: Chronic Comment: Cont. short cath. (9) Anemia Status: Chronic Comment: On EPO per nephrology Result Diagram: 03/31/19 0425 03/31/19 0425 Results 24hrs Laboratory Tests Test 03/30/19 21:11 03/31/19 00:56 03/31/19 04:25 03/31/19 04:29 Bedside Glucose 132 112 109 White Blood Count 9.4 # Red Blood Count 2.78 L Hemoglobin 8.1 L Hematocrit 25.4 L Mean Corpuscular 91.4 Volume Mean Corpuscular 29.1 Hemoglobin Mean Corpuscular 31.9 L Hemoglobin Concent Red Cell 14.7 H Distribution Width Platelet Count 339 Mean Platelet Volume 9.9 Immature 0.700 H Granulocytes % Neutrophils % 77.1 H Lymphocytes % 10.7 L Monocytes % 6.8 Eosinophils % 4.4 Basophils % 0.3 Nucleated Red Blood 0.3 H Cells % Immature 0.070 H Granulocytes # Neutrophils # 7.2 Lymphocytes # 1.0 Monocytes # 0.6 Eosinophils # 0.4 Basophils # 0.0 Nucleated Red Blood 0.0 Cells # Sodium Level 138 Potassium Level 4.1 Chloride Level 100 Carbon Dioxide Level 28 Anion Gap 10 Blood Urea Nitrogen 42 H Creatinine 4.71 #H Est Glomerular 12 L Filtrat Rate mL/min Glucose Level 104 Calcium Level 8.4 Phosphorus Level 3.7 Total Bilirubin 0.3 Direct Bilirubin 0.00 Indirect Bilirubin 0.3 Aspartate Amino 57 #H Transf (AST/SGOT) Alanine 33 Aminotransferase (AL T/SGPT) Alkaline Phosphatase 140 #H Total Protein 6.0 L Albumin 2.9 L Globulin 3.10 Albumin/Globulin 0.93 Ratio Procalcitonin 7.10 H Test 03/31/19 08:27 03/31/19 12:31 03/31/19 17:03 Bedside Glucose 114 157 193 Subjective 24 Hr Interval Summary Constitutional: no complaints, improved, requiring O2 Respiratory: cough (mild), sputum (blood-flecked); No shortness of breath Cardiovascular: no complaints Gastrointestinal: no complaints Genitourinary: no complaints Musculoskeletal: bone/joint pain (RLE ) Neurologic: no complaints Exam/Review of Systems Exam Vitals VS - Last 72 Hours, by Label Date Temp Pulse Resp B/P (MAP) Pulse Ox O2 O2 Flow FiO2 Time Delivery Rate 03/31/19 93 50 17:45 03/31/19 74 16 92 Nasal 45 16:04 Cannula 03/31/19 92 45 16:04 03/31/19 75 16:00 03/31/19 70 15 116/59 91 High Flow 15:00 (78) 03/31/19 70 16 117/59 94 High Flow 14:00 (78) 03/31/19 99 45 13:17 03/31/19 67 16 99 Nasal 45 13:14 Cannula 03/31/19 99 45 13:14 03/31/19 68 16 114/91 100 High Flow 13:00 (99) 03/31/19 70 12:00 03/31/19 98.3 69 20 108/52 99 High Flow 12:00 (70) 03/31/19 73 18 112/57 94 High Flow 11:00 (75) 03/31/19 76 14 113/57 93 High Flow 10:00 (75) 03/31/19 78 17 128/61 92 High Flow 09:00 (83) 03/31/19 74 08:00 03/31/19 98.3 74 11 119/61 93 High Flow 08:00 (80) 03/31/19 96 45 07:55 03/31/19 75 16 96 Nasal 45 07:55 Cannula 03/31/19 72 18 117/59 97 BIPAP 07:00 (78) 03/31/19 71 17 122/61 98 BIPAP 06:00 (81) 03/31/19 72 16 105/68 95 BIPAP 05:00 (80) 03/31/19 78 95 45 04:36 03/31/19 98.4 67 19 111/51 98 BIPAP 04:00 (71) 03/31/19 67 04:00 03/31/19 70 16 103/47 100 BIPAP 03:00 (65) 03/31/19 74 96 45 02:52 03/31/19 70 22 111/52 100 BIPAP 02:00 (71) 03/31/19 72 95 45 01:41 03/31/19 70 21 105/52 97 BIPAP 01:11 (69) 03/31/19 99.0 71 16 113/56 95 BIPAP 00:00 (75) 03/31/19 72 00:00 03/30/19 74 17 118/55 96 BIPAP 23:00 (76) 03/30/19 81 22:15 03/30/19 76 17 121/57 97 BIPAP 22:09 (78) 03/30/19 76 100 45 22:03 03/30/19 82 14 116/53 93 High Flow 21:00 (74) 03/30/19 85 22 94 100 20:11 03/30/19 94 45 20:10 03/30/19 Nasal 20:05 Cannula 03/30/19 97.9 82 14 121/52 91 High Flow 20:00 (75) 03/30/19 85 16 125/102 91 High Flow 19:00 (110) 03/30/19 95 45 18:23 03/30/19 77 18 140/59 94 High Flow 18:00 (86) 03/30/19 20 137/62 95 High Flow 17:00 (87) 03/30/19 73 22 132/60 100 High Flow 16:01 (84) 03/30/19 73 16:00 03/30/19 97.5 74 19 132/60 94 High Flow 16:00 (84) 03/30/19 69 15:55 03/30/19 69 15:40 03/30/19 69 15:25 03/30/19 69 15:10 03/30/19 71 23 154/62 98 High Flow 15:00 (92) 03/30/19 69 14:55 03/30/19 67 14:40 03/30/19 96 60 14:30 03/30/19 68 14:25 03/30/19 71 14:10 03/30/19 70 13 132/61 97 High Flow 14:00 (84) 03/30/19 70 13:55 03/30/19 72 13:40 03/30/19 71 13:25 03/30/19 73 13:10 03/30/19 71 14 124/62 94 High Flow 13:00 (82) 03/30/19 79 22 128/56 96 High Flow 12:55 (80) 03/30/19 75 12:55 03/30/19 80 12:00 03/30/19 97.5 81 18 128/56 96 High Flow 12:00 (80) 03/30/19 85 22 151/63 96 High Flow 11:00 (92) 03/30/19 98 75 10:39 03/30/19 79 18 126/57 96 BIPAP 10:00 (80) 03/30/19 69 16 117/50 88 BIPAP 09:00 (72) 03/30/19 75 100 75 08:17 03/30/19 97.3 77 17 144/69 100 BIPAP 08:00 (94) 03/30/19 79 08:00 03/30/19 67 12 114/54 99 BIPAP 07:00 (74) 03/30/19 74 12 128/58 100 BIPAP 06:00 (81) 03/30/19 69 100 75 05:27 03/30/19 73 13 125/55 99 BIPAP 05:00 (78) 03/30/19 97.9 69 16 109/49 100 BIPAP 04:00 (69) 03/30/19 68 04:00 03/30/19 71 100 75 03:07 03/30/19 67 19 102/51 98 BIPAP 03:00 (68) 03/30/19 68 16 103/46 99 BIPAP 02:00 (65) 03/30/19 73 100 75 01:05 03/30/19 72 22 101/48 100 BIPAP 01:00 (65) 03/30/19 77 00:00 03/30/19 98.2 76 16 125/55 100 BIPAP 00:00 (78) 03/29/19 180 23:38 03/29/19 75 100 75 23:33 03/29/19 75 17 115/51 100 BIPAP 23:00 (72) 03/29/19 75 16 110/49 93 BIPAP 22:00 (69) 03/29/19 75 100 75 21:03 03/29/19 78 17 130/57 98 BIPAP 21:00 (81) 03/29/19 78 20:00 03/29/19 98.4 79 18 125/54 98 BIPAP 20:00 (77) 03/29/19 76 100 75 19:18 03/29/19 77 15 122/56 97 BIPAP 19:00 (78) 03/29/19 76 22 123/54 86 BIPAP 18:00 (77) 03/29/19 78 100 75 17:35 03/29/19 80 19 134/59 98 BIPAP 17:00 (84) 03/29/19 77 16:00 03/29/19 98.3 78 16 132/60 100 BIPAP 16:00 (84) 03/29/19 79 100 75 15:52 03/29/19 77 16 127/61 100 BIPAP 15:00 (83) 03/29/19 79 20 130/56 100 BIPAP 14:00 (80) 03/29/19 77 18 130/58 100 BIPAP 13:18 (82) 03/29/19 77 100 85 13:18 03/29/19 77 17 126/60 98 BIPAP 13:00 (82) 03/29/19 74 12:55 03/29/19 75 12:40 03/29/19 75 12:25 03/29/19 78 12:10 03/29/19 79 12:00 03/29/19 98.3 79 19 121/60 97 BIPAP 12:00 (80) 03/29/19 78 11:55 03/29/19 79 11:35 03/29/19 80 98 85 11:33 03/29/19 81 11:20 03/29/19 81 11:05 03/29/19 80 19 114/62 93 BIPAP 11:00 (79) 03/29/19 90 10:54 03/29/19 76 10:50 03/29/19 76 10:35 03/29/19 76 10:20 03/29/19 80 10:05 03/29/19 80 20 125/58 96 BIPAP 10:00 (80) 03/29/19 80 09:50 03/29/19 82 18 126/65 97 BIPAP 09:50 (85) 03/29/19 81 99 80 09:20 03/29/19 82 16 129/58 98 BIPAP 09:00 (81) 03/29/19 82 100 90 08:05 03/29/19 84 08:00 03/29/19 98.5 82 19 127/64 99 BIPAP 08:00 (85) 03/29/19 82 17 122/59 100 BIPAP 07:00 (80) 03/29/19 81 21 120/58 98 BIPAP 06:00 (78) 03/29/19 82 98 100 05:30 03/29/19 81 19 130/58 97 BIPAP 05:00 (82) 03/29/19 80 04:00 03/29/19 98.6 80 17 134/58 98 BIPAP 04:00 (83) 03/29/19 72 99 100 03:35 03/29/19 72 15 105/52 99 BIPAP 03:00 (69) 03/29/19 77 19 123/63 96 BIPAP 02:00 (83) 03/29/19 80 96 100 01:05 03/29/19 79 24 146/66 92 BIPAP 01:00 (92) 03/29/19 79 00:00 03/29/19 98.8 80 25 143/72 96 BIPAP 00:00 (95) 03/28/19 79 95 100 23:30 03/28/19 81 22 142/71 92 BIPAP 23:00 (94) 03/28/19 79 20 140/69 94 BIPAP 22:00 (92) 03/28/19 91 26 170/74 91 BIPAP 21:00 (106) 03/28/19 84 94 100 21:00 03/28/19 87 22 92 100 20:21 03/28/19 92 100 20:21 03/28/19 87 20:00 03/28/19 98.1 83 38 129/64 91 20:00 (85) 03/28/19 100 19:30 03/28/19 87 24 136/68 92 19:00 (90) Vital Signs Date Temp Pulse Resp B/P (MAP) Pulse Ox O2 O2 Flow FiO2 Time Delivery Rate 03/31/19 93 50 17:45 03/31/19 74 16 Nasal 16:04 Cannula 03/31/19 116/59 15:00 (78) 03/31/19 98.3 12:00 03/28/19 8.0 13:25 Intake and Output 03/30/19 03/30/19 03/31/19 1515:00 23:00 07:00 IntakeIntake Total 380 ml 510 ml 0 ml OutputOutput Total 0 ml 3210 ml 15 ml BalanceBalance 380 ml -2700 ml -15 ml Constitutional: alert, oriented, well developed Respiratory: clear to auscultation, normal air movement Cardiovascular: regular rate and rhythm; No edema, No murmurs/extra sounds, No rub Gastrointestinal: soft, nl liver, spleen, non-tender, bowel sounds; No mass, No rebound or guarding Musculoskeletal: No nl extremities to inspection (RLE wrapped) Extremities: No cyanosis, No clubbing, No edema Neurological: TOP TRIMMER II-XII intact, nl mental status, nl speech, nl strength Additional Comments Bedside Glucose - 72 Hours Test 03/28/19 18:10 03/28/19 20:54 03/29/19 09:56 03/29/19 13:39 Bedside 110 120 142 116 Glucose mg/dL (70-220) mg/dL (70-220) mg/dL (70-220) mg/dL (70-220) Test 03/29/19 17:34 03/29/19 21:31 03/30/19 00:44 03/30/19 05:17 Bedside 130 124 121 113 Glucose mg/dL (70-220) mg/dL (70-220) mg/dL (70-220) mg/dL (70-220) Test 03/30/19 09:19 03/30/19 13:21 03/30/19 17:26 03/30/19 21:11 Bedside 105 128 104 132 Glucose mg/dL (70-220) mg/dL (70-220) mg/dL (70-220) mg/dL (70-220) Test 03/31/19 00:56 03/31/19 04:29 03/31/19 08:27 03/31/19 12:31 Bedside 112 109 114 157 Glucose mg/dL (70-220) mg/dL (70-220) mg/dL (70-220) mg/dL (70-220) Test 03/31/19 17:03 Bedside 193 Glucose mg/dL (70-220) Results Results 24hrs Laboratory Tests Test 03/30/19 21:11 03/31/19 00:56 03/31/19 04:25 03/31/19 04:29 Bedside Glucose 132 112 109 White Blood Count 9.4 # Red Blood Count 2.78 L Hemoglobin 8.1 L Hematocrit 25.4 L Mean Corpuscular 91.4 Volume Mean Corpuscular 29.1 Hemoglobin Mean Corpuscular 31.9 L Hemoglobin Concent Red Cell 14.7 H Distribution Width Platelet Count 339 Mean Platelet Volume 9.9 Immature 0.700 H Granulocytes % Neutrophils % 77.1 H Lymphocytes % 10.7 L Monocytes % 6.8 Eosinophils % 4.4 Basophils % 0.3 Nucleated Red Blood 0.3 H Cells % Immature 0.070 H Granulocytes # Neutrophils # 7.2 Lymphocytes # 1.0 Monocytes # 0.6 Eosinophils # 0.4 Basophils # 0.0 Nucleated Red Blood 0.0 Cells # Sodium Level 138 Potassium Level 4.1 Chloride Level 100 Carbon Dioxide Level 28 Anion Gap 10 Blood Urea Nitrogen 42 H Creatinine 4.71 #H Est Glomerular 12 L Filtrat Rate mL/min Glucose Level 104 Calcium Level 8.4 Phosphorus Level 3.7 Total Bilirubin 0.3 Direct Bilirubin 0.00 Indirect Bilirubin 0.3 Aspartate Amino 57 #H Transf (AST/SGOT) Alanine 33 Aminotransferase (AL T/SGPT) Alkaline Phosphatase 140 #H Total Protein 6.0 L Albumin 2.9 L Globulin 3.10 Albumin/Globulin 0.93 Ratio Procalcitonin 7.10 H Test 03/31/19 08:27 03/31/19 12:31 03/31/19 17:03 Bedside Glucose 114 157 193 Medications Medication Current Medications Albuterol (Proventil 0.083% (Neb)) 2.5 mg ICU RECOVERY PRN HHN .WHEEZING; Start 03/23/19 at 11:30 Aspirin (Aspirin) 325 mg DAILY PO Last administered on 03/31/19 08:50; Admin Dose 325 MG; Start 03/24/19 at 09:00 Amlodipine Besylate (Norvasc) 5 mg DAILY PO Last administered on 03/31/19 08:50; Admin Dose 5 MG; Start 03/24/19 at 09:00 Atorvastatin Calcium (Lipitor) 40 mg QHS PO Last administered on 03/30/19 21:02; Admin Dose 40 MG; Start 03/23/19 at 21:00 Carvedilol (Coreg) 12.5 mg BID PO Last administered on 03/31/19 08:51; Admin Dose 12.5 MG; Start 03/23/19 at 21:00 Linagliptin (Tradjenta) 5 mg DAILY PO Last administered on 03/31/19 08:51; A dmin Dose 5 MG; Start 03/24/19 at 09:00 Ranitidine HCl (Zantac) 150 mg DAILY PO Last administered on 03/31/19 08:51; Admin Dose 150 MG; Start 03/24/19 at 09:00 Ondansetron HCl (Zofran Inj) 4 mg Q4H PRN IV NAUSEA AND/OR VOMITING Last administered on 03/28/19 20:28; Admin Dose 4 MG; Start 03/23/19 at 18:00 Metoclopramide HCl (Reglan) 10 mg Q6H PRN IV NAUSEA Last administered on 03/27/19 08:40; Admin Dose 10 MG; Start 03/23/19 at 18:00 Diagnostic Test (Pha) (Accu-Chek) 1 ea Q4 XX Last administered on 03/31/19 17:14; Admin Dose 1 EA; Start 03/23/19 at 21:00 Hydromorphone HCl (Dilaudid) 2 mg Q4H PRN IV SEVERE PAIN LEVEL 7-10 Last administered on 03/31/19 17:00; Admin Dose 2 MG; Start 03/23/19 at 18:00 Miscellaneous Information 1 ea NOTE XX ; Start 03/23/19 at 18:30 Glucose (Glutose) 15 gm Q15M PRN PO DECREASED GLUCOSE; Start 03/23/19 at 18:30 Glucose (Glutose) 22.5 gm Q15M PRN PO DECREASED GLUCOSE; Start 03/23/19 at 18:30 Dextrose (D50w Syringe) 25 ml Q15M PRN IV DECREASED GLUCOSE; Start 03/23/19 at 18:30 Dextrose (D50w Syringe) 50 ml Q15M PRN IV DECREASED GLUCOSE; Start 03/23/19 at 18:30 Glucagon (Glucagen) 1 mg Q15M PRN IM DECREASED GLUCOSE; Start 03/23/19 at 18:30 Glucose (Glutose) 15 gm Q15M PRN BUCCAL DECREASED GLUCOSE; Start 03/23/19 at 18:30 Epoetin Joseph-epbx (Retacrit (Esrd)) 10,000 unit TuThSa@1700 SC Last administered on 03/28/19 18:14; Admin Dose 10,000 UNIT; Start 03/24/19 at 17:00 Acetaminophen/ Hydrocodone Bitart ([place] (5/325)) 1 tab Q6H PRN PO .MOD PAIN 4- 6 Last administered on 03/25/19 14:33; Admin Dose 1 TAB; Start 03/24/19 at 22:30 Calcium Acetate (Phoslo) 667 mg WITH MEALS PO Last administered on 03/31/19 12:35; Admin Dose 667 MG; Start 03/26/19 at 12:00 Albumin Human 100 ml @ 100 mls/hr WITH DIALYSIS PRN IV SBP <90 DURING DIALYSIS Last administered on 03/29/19 10:43; Admin Dose 100 MLS/HR; Start 03/27/19 at 12:00 Albuterol/ Ipratropium (Duoneb) 3 ml Q4HWA RESP THERAPY HHN Last administered on 03/31/19 16:04; Admin Dose 3 ML; Start 03/27/19 at 21:00 Heparin Sodium (Porcine) (Heparin (1000 Units/ml)) 3,000 unit AFTER DIALYSIS CATHETER Last administered on 03/30/19 15:52; Admin Dose 3,000 UNIT; Start 03/28/19 at 09:30 Magnesium Hydroxide (Milk Of Mag) 30 ml DAILY PRN PO CONSTIPATION Last administered on 03/28/19 20:48; Admin Dose 30 ML; Start 03/28/19 at 15:30 Heparin Sodium (Porcine) (Heparin (5000 Units/1ml)) 5,000 unit BID SC Last administered on 03/31/19at 08:54; Admin Dose 5,000 UNIT; Start 03/29/19 at 21:00 Metoclopramide HCl (Reglan) 5 mg Q6 IV Last administered on 03/31/19at 17:03; Admin Dose 5 MG; Start 03/29/19 at 18:00 Meropenem/Sodium Chloride 50 ml @ 100 mls/hr Q24H IVPB Last administered on 03/30/19at 18:05; Admin Dose 100 MLS/HR; Start 03/29/19 at 18:00 Diagnostic Test (Pha) (Accu-Chek) 1 ea 02 XX ; Start 04/01/19 at 02:00 Methylprednisolone Sodium Succinate (Solu-Medrol) 60 mg Q8 IV Last administered on 03/31/19at 17:03; Admin Dose 60 MG; Start 03/31/19 at 10:30 Insulin Aspart (Novolog Insulin Pen) NOVOLOG *MODERATE* ALGORITHM WITH MEALS BEDTIME SC ; Start 03/31/19 at 21:00; Status UNV Miscellaneous Information (* Miscellaneous Pharmacy Order) Discontinue all previ... ONCE ONCE XX ; Start 03/31/19 at 18:00; Stop 03/31/19 at 18:01; Status UNV JOSE PARRY MD Mar 31, 2019 17:57
[2019-03-31] MEDS: ATORVASTATIN 40 MG TAB PO SCH (20:23)
[2019-04-01] VITALS (36 sets, daily range): BP systolic 122–163; BP diastolic 65–98; PULSE 69–91; RESP 12–24
[2019-04-01] MEDS: ACCU-CHEK XX SCH (02:20)
[2019-04-01] MEDS: METOCLOPRAMIDE 10 MG INJ IV SCH ×4 (06:02→18:08)
[2019-04-01] MEDS: METHYLPREDNISOLONE 125 MG INJ IV SCH ×3 (06:02→21:37)
[2019-04-01] MEDS: INSULIN ASPART [NOVOLOG] 3 ML PEN SC SCH ×5 (07:35→21:44)
[2019-04-01] MEDS: ALBUTEROL/IPRATROPIUM (NEB) 3 ML AMP HHN SCH ×4 (08:17→20:17)
--- NOTE | 2019-04-01 08:20 | CONS ---
Assessment/Plan Assessment/Plan Assessment/Plan 1. CKD/ARF, now being HD, will plan on next Hd Fri, reviewed with vascular perm access will be needed. 2. Anemia, stable 3. Bilateral pul infiltrates, abx per id 4. Still mildly vol expanded given edema with reasonable albumin. 5. DM, control acceptable 6. Amputation when more stable 7. DC Short tomm ? Consultation Date/Type/Reason Admit Date/Time Mar 23, 2019 at 06:13 Type of Consult Nephrology Date/Time of Note DATE: 04/01/19 TIME: 08:17 Respiratory: cough (mild), shortness of breath (is less) Cardiovascular: No chest pain Gastrointestinal: no complaints Genitourinary: other (short is in place) Exam/Review of Systems Vital Signs Vitals Vital Signs Date Temp Pulse Resp B/P (MAP) Pulse Ox O2 O2 Flow FiO2 Time Delivery Rate 04/01/19 73 20 134/71 93 High Flow 07:25 (92) 04/01/19 60 05:43 04/01/19 97.9 00:00 03/28/19 8.0 13:25 Intake and Output 03/31/19 03/31/19 04/01/19 1515:00 23:00 07:00 IntakeIntake Total 900 ml 130 ml OutputOutput Total 0 ml 25 ml 30 ml BalanceBalance 900 ml 105 ml -30 ml Exam Neck: jvd (mild hjr) Respiratory: diminished breath sounds; No crackles/rales Cardiovascular: regular rate and rhythm; No S3 Gastrointestinal: soft Extremities: edema (sacral 1+) Labs Result Diagram: 04/01/19 0430 04/01/19 0430 Results 24hrs Laboratory Tests Test 03/31/19 08:27 03/31/19 12:31 03/31/19 17:03 03/31/19 20:27 Bedside Glucose 114 157 193 224 H Test 04/01/19 02:18 04/01/19 04:30 Bedside Glucose 197 White Blood Count 6.0 # Red Blood Count 3.41 #L Hemoglobin 10.1 #L Hematocrit 31.1 #L Mean Corpuscular 91.2 Volume Mean Corpuscular 29.6 Hemoglobin Mean Corpuscular 32.5 Hemoglobin Concent Red Cell 14.2 Distribution Width Platelet Count 320 Mean Platelet Volume 9.8 Immature 0.800 H Granulocytes % Neutrophils % Lymphocytes % Monocytes % Nucleated Red Blood 0.8 H Cells % Immature 0.050 H Granulocytes # Neutrophils # Lymphocytes # Monocytes # Sodium Level 133 L Potassium Level 4.8 Chloride Level 97 Carbon Dioxide Level 23 Anion Gap 13 Blood Urea Nitrogen 63 H Creatinine 6.38 H Est Glomerular 9 L Filtrat Rate mL/min Glucose Level 205 # Calcium Level 8.6 Phosphorus Level 4.6 Medications Medications Current Medications Albuterol (Proventil 0.083% (Neb)) 2.5 mg ICU RECOVERY PRN HHN .WHEEZING; Start 03/23/19 at 11:30 Aspirin (Aspirin) 325 mg DAILY PO Last administered on 03/31/19 08:50; Admin Dose 325 MG; Start 03/24/19 at 09:00 Amlodipine Besylate (Norvasc) 5 mg DAILY PO Last administered on 03/31/19 08:50; Admin Dose 5 MG; Start 03/24/19 at 09:00 Atorvastatin Calcium (Lipitor) 40 mg QHS PO Last administered on 03/31/19 20:23; Admin Dose 40 MG; Start 03/23/19 at 21:00 Carvedilol (Coreg) 12.5 mg BID PO Last administered on 03/31/19 20:23; Admin Dose 12.5 MG; Start 03/23/19 at 21:00 Linagliptin (Tradjenta) 5 mg DAILY PO Last administered on 03/31/19 08:51; Admin Dose 5 MG; Start 03/24/19 at 09:00 Ranitidine HCl (Zantac) 150 mg DAILY PO Last administered on 03/31/19 08:51; Admin Dose 150 MG; Start 03/24/19 at 09:00 Ondansetron HCl (Zofran Inj) 4 mg Q4H PRN IV NAUSEA AND/OR VOMITING Last administered on 03/28/19 20:28; Admin Dose 4 MG; Start 03/23/19 at 18:00 Metoclopramide HCl (Reglan) 10 mg Q6H PRN IV NAUSEA Last administered on 03/27/19 08:40; Admin Dose 10 MG; Start 03/23/19 at 18:00 Hydromorphone HCl (Dilaudid) 2 mg Q4H PRN IV SEVERE PAIN LEVEL 7-10 Last administered on 03/31/19 17:00; Admin Dose 2 MG; Start 03/23/19 at 18:00 Miscellaneous Information 1 ea NOTE XX ; Start 03/23/19 at 18:30 Glucose (Glutose) 15 gm Q15M PRN PO DECREASED GLUCOSE; Start 03/23/19 at 18:30 Glucose (Glutose) 22.5 gm Q15M PRN PO DECREASED GLUCOSE; Start 03/23/19 at 18:30 Dextrose (D50w Syringe) 25 ml Q15M PRN IV DECREASED GLUCOSE; Start 03/23/19 at 18:30 Dextrose (D50w Syringe) 50 ml Q15M PRN IV DECREASED GLUCOSE; Start 03/23/19 at 18:30 Glucagon (Glucagen) 1 mg Q15M PRN IM DECREASED GLUCOSE; Start 03/23/19 at 18:30 Glucose (Glutose) 15 gm Q15M PRN BUCCAL DECREASED GLUCOSE; Start 03/23/19 at 18:30 Epoetin Joseph-epbx (Retacrit (Esrd)) 10,000 unit TuThSa@1700 SC Last administered on 03/31/19 17:54; Admin Dose 10,000 UNIT; Start 03/24/19 at 17:00 Acetaminophen/ Hydrocodone Bitart ([place] (5/325)) 1 tab Q6H PRN PO .MOD PAIN 4- 6 Last administered on 03/25/19 14:33; Admin Dose 1 TAB; Start 03/24/19 at 22:30 Calcium Acetate (Phoslo) 667 mg WITH MEALS PO Last administered on 03/31/19 17:53; Admin Dose 667 MG; Start 03/26/19 at 12:00 Albumin Human 100 ml @ 100 mls/hr WITH DIALYSIS PRN IV SBP <90 DURING DIALYSIS Last administered on 03/29/19 10:43; Admin Dose 100 MLS/HR; Start 03/27/19 at 12:00 Albuterol/ Ipratropium (Duoneb) 3 ml Q4HWA RESP THERAPY HHN Last administered on 03/31/19 20:49; Admin Dose 3 ML; Start 03/27/19 at 21:00 Heparin Sodium (Porcine) (Heparin (1000 Units/ml)) 3,000 unit AFTER DIALYSIS CATHETER Last administered on 03/30/19 15:52; Admin Dose 3,000 UNIT; Start 03/28/19 at 09:30 Magnesium Hydroxide (Milk Of Mag) 30 ml DAILY PRN PO CONSTIPATION Last administered on 03/28/19 20:48; Admin Dose 30 ML; Start 03/28/19 at 15:30 Heparin Sodium (Porcine) (Heparin (5000 Units/1ml)) 5,000 unit BID SC Last administered on 03/31/19 20:25; Admin Dose 5,000 UNIT; Start 03/29/19 at 21:00 Metoclopramide HCl (Reglan) 5 mg Q6 IV Last administered on 04/01/19 06:02; A dmin Dose 5 MG; Start 03/29/19 at 18:00 Meropenem/Sodium Chloride 50 ml @ 100 mls/hr Q24H IVPB Last administered on 03/31/19 17:54; Admin Dose 100 MLS/HR; Start 03/29/19 at 18:00 Diagnostic Test (Pha) (Accu-Chek) 1 ea 02 XX Last administered on 04/01/19 02:20; Admin Dose 1 EA; Start 04/01/19 at 02:00 Methylprednisolone Sodium Succinate (Solu-Medrol) 60 mg Q8 IV Last administered on 04/01/19 06:02; Admin Dose 60 MG; Start 03/31/19 at 10:30 Insulin Aspart (Novolog Insulin Pen) NOVOLOG *MODERATE* ALGORITHM WITH MEALS BEDTIME SC Last administered on 03/31/19 20:29; Admin Dose 2 UNIT; Start 03/31/19 at 21:00 DOT ASHLEY MD Apr 01, 2019 08:20
[2019-04-01] MEDS: CALCIUM ACETATE 667 MG CAP PO SCH ×3 (09:11→18:08)
[2019-04-01] MEDS ORDERED: METOCLOPRAMIDE 10 MG INJ IV PRN (09:35)
[2019-04-01] MEDS: HEPARIN 1000 UNITS/ML 10 ML INJ CATHETER SCH (10:14)
[2019-04-01] MEDS: RANITIDINE 150 MG TAB PO SCH (11:17)
[2019-04-01] MEDS: ASPIRIN 325 MG TAB PO SCH (11:17)
[2019-04-01] MEDS: AMLODIPINE 5 MG TAB PO SCH ×2 (11:18→21:38)
[2019-04-01] MEDS: HEPARIN 5,000 UNIT/1 ML VIAL SC SCH ×2 (11:27→21:39)
[2019-04-01] MEDS: LINAGLIPTIN 5 MG TABLET PO SCH (11:28)
--- NOTE | 2019-04-01 11:35 | PN ---
Date/Time of Note Date/Time of Note DATE: 04/01/19 TIME: 11:33 Assessment/Plan Lines/Catheters IV Catheter Type (from Nrsg): Kalyan [place] in Place (from Nrsg): Yes Assessment/Plan Assessment/Plan R foot well perfused, bypass patent, OK for TMA when cleared medically ESRD, will need intermediate teacher HD - scheduled for permcath placement Saturday AM OK to tx to tele from my standpoint Subjective 24 Hr Interval Summary Breathing much better, no pain. Exam/Review of Systems Vital Signs Vitals Vital Signs Date Temp Pulse Resp B/P (MAP) Pulse Ox O2 O2 Flow FiO2 Time Delivery Rate 04/01/19 87 10:40 04/01/19 155/84 96 High Flow 10:00 (107) 04/01/19 98.0 18 09:00 04/01/19 60 08:17 03/28/19 8.0 13:25 Intake and Output 03/31/19 03/31/19 04/01/19 1515:00 23:00 07:00 IntakeIntake Total 900 ml 130 ml OutputOutput Total 0 ml 25 ml 230 ml BalanceBalance 900 ml 105 ml -230 ml Exam Free Text/Dictation R foot warm, hyperemic, toes are well demarcated, no odor 2+ graft pulse, incisions CDI Results Result Diagram: 04/01/1942904/01/19429 WALTER LOWERY MD Apr 01, 2019 11:35
--- NOTE | 2019-04-01 12:09 | CONS ---
Consult Date/Type/Reason Admit Date/Time Mar 23, 2019 at 06:13 Initial Consult Date 03/28/19 Type of Consult Pulmonary Requesting Provider: JOSE PARRY MD Date/Time of Note DATE: 04/01/19 TIME: 11:42 Subjective Awake alert on nasal cannula this morning high flow O2 at 60% having hemodialysis. Chest x-ray shows ongoing bilateral infiltrates with small right pleural effusion. Objective Vital Signs Date Temp Pulse Resp B/P (MAP) Pulse Ox O2 O2 Flow FiO2 Time Delivery Rate 04/01/19 87 10:40 04/01/19 155/84 96 High Flow 10:00 (107) 04/01/19 98.0 18 09:00 04/01/19 60 08:17 03/28/19 8.0 13:25 Intake and Output 03/31/19 03/31/19 04/01/19 1515:00 23:00 07:00 IntakeIntake Total 900 ml 130 ml OutputOutput Total 0 ml 25 ml 230 ml BalanceBalance 900 ml 105 ml -230 ml Exam GENERAL: VITAL SIGNS: gentleman on high flow O2 NECK: Supple. No JVD or lymphadenopathy. CARDIAC EXAM: S1, S2. No added sounds or murmurs. CHEST: Diminished air entry bilaterally ABDOMEN: Soft, nontender. No guarding or rebound. EXTREMITIES: No cyanosis, clubbing or edema. NEUROLOGIC: Generalized weakness. No focal deficits. Vent Setting Fraction of Inspired Oxygen pe: 60 Results/Medications Result Diagram: 04/01/19 0430 04/01/19 0430 Results 24 hrs Laboratory Tests Test 03/31/19 12:31 03/31/19 17:03 03/31/19 20:27 04/01/19 02:18 Bedside Glucose 157 193 224 H 197 Test 04/01/19 04:30 04/01/19 08:16 04/01/19 11:24 White Blood Count 6.0 # Red Blood Count 3.41 #L Hemoglobin 10.1 #L Hematocrit 31.1 #L Mean Corpuscular 91.2 Volume Mean Corpuscular 29.6 Hemoglobin Mean Corpuscular 32.5 Hemoglobin Concent Red Cell 14.2 Distribution Width Platelet Count 320 Mean Platelet Volume 9.8 Immature 0.800 H Granulocytes % Neutrophils % Segmented 90 H Neutrophils % (Manual) Band Neutrophils % 2 (Manual) Lymphocytes % Lymphocytes % 6 L (Manual) Monocytes % Monocytes % (Manual) 2 Nucleated Red Blood 2 H Cells % Immature 0.050 H Granulocytes # Neutrophils # Neutrophils # 5.4 (Manual) Band Neutrophils # 0.1 Lymphocytes (Manual) 0.3 L Lymphocytes # Monocytes # Monocytes # (Manual) 0.1 L Platelet Estimate NORMAL Giant Platelets 2 H Polychromasia 1+ Anisocytosis 1+ Macrocytosis 2+ Sodium Level 133 L Potassium Level 4.8 Chloride Level 97 Carbon Dioxide Level 23 Anion Gap 13 Blood Urea Nitrogen 63 H Creatinine 6.38 H Est Glomerular 9 L Filtrat Rate mL/min Glucose Level 205 # Calcium Level 8.6 Phosphorus Level 4.6 Bedside Glucose 137 147 Medications Current Medications Albuterol (Proventil 0.083% (Neb)) 2.5 mg ICU RECOVERY PRN HHN .WHEEZING; Start 03/23/19 at 11:30 Aspirin (Aspirin) 325 mg DAILY PO Last administered on 04/01/19 11:17; Admin Dose 325 MG; Start 03/24/19 at 09:00 Amlodipine Besylate (Norvasc) 5 mg DAILY PO Last administered on 04/01/19 11:18; Admin Dose 5 MG; Start 03/24/19 at 09:00 Atorvastatin Calcium (Lipitor) 40 mg QHS PO Last administered on 03/31/19 20:23; Admin Dose 40 MG; Start 03/23/19 at 21:00 Carvedilol (Coreg) 12.5 mg BID PO Last administered on 04/01/19 11:19; Admin Dose 12.5 MG; Start 03/23/19 at 21:00 Linagliptin (Tradjenta) 5 mg DAILY PO Last administered on 04/01/19 11:28; Admin Dose 5 MG; Start 03/24/19 at 09:00 Ranitidine HCl (Zantac) 150 mg DAILY PO Last administered on 04/01/19 11:17; Admin Dose 150 MG; Start 03/24/19 at 09:00 Ondansetron HCl (Zofran Inj) 4 mg Q4H PRN IV NAUSEA AND/OR VOMITING Last administered on 03/28/19 20:28; Admin Dose 4 MG; Start 03/23/19 at 18:00 Hydromorphone HCl (Dilaudid) 2 mg Q4H PRN IV SEVERE PAIN LEVEL 7-10 Last administered on 03/31/19at 17:00; Admin Dose 2 MG; Start 03/23/19 at 18:00 Miscellaneous Information 1 ea NOTE XX ; Start 03/23/19 at 18:30 Glucose (Glutose) 15 gm Q15M PRN PO DECREASED GLUCOSE; Start 03/23/19 at 18:30 Glucose (Glutose) 22.5 gm Q15M PRN PO DECREASED GLUCOSE; Start 03/23/19 at 18:30 Dextrose (D50w Syringe) 25 ml Q15M PRN IV DECREASED GLUCOSE; Start 03/23/19 at 18:30 Dextrose (D50w Syringe) 50 ml Q15M PRN IV DECREASED GLUCOSE; Start 03/23/19 at 18:30 Glucagon (Glucagen) 1 mg Q15M PRN IM DECREASED GLUCOSE; Start 03/23/19 at 18:30 Glucose (Glutose) 15 gm Q15M PRN BUCCAL DECREASED GLUCOSE; Start 03/23/19 at 18:30 Epoetin Joseph-epbx (Retacrit (Esrd)) 10,000 unit TuThSa@1700 SC Last administered on 03/31/19at 17:54; Admin Dose 10,000 UNIT; Start 03/24/19 at 17:00 Acetaminophen/ Hydrocodone Bitart ([place] (5/325)) 1 tab Q6H PRN PO .MOD PAIN 4- 6 Last administered on 03/25/19at 14:33; Admin Dose 1 TAB; Start 03/24/19 at 22:30 Calcium Acetate (Phoslo) 667 mg WITH MEALS PO Last administered on 04/01/19 11:28; Admin Dose 667 MG; Start 03/26/19 at 12:00 Albumin Human 100 ml @ 100 mls/hr WITH DIALYSIS PRN IV SBP <90 DURING DIALYSIS Last administered on 03/29/19at 10:43; Admin Dose 100 MLS/HR; Start 03/27/19 at 12:00 Albuterol/ Ipratropium (Duoneb) 3 ml Q4HWA RESP THERAPY HHN Last administered on 04/01/19at 08:17; Admin Dose 3 ML; Start 03/27/19 at 21:00 Heparin Sodium (Porcine) (Heparin (1000 Units/ml)) 3,000 unit AFTER DIALYSIS CATHETER Last administered on 04/01/19at 10:14; Admin Dose 3,000 UNIT; Start 03/28/19 at 09:30 Magnesium Hydroxide (Milk Of Mag) 30 ml DAILY PRN PO CONSTIPATION Last administered on 03/28/19at 20:48; Admin Dose 30 ML; Start 03/28/19 at 15:30 Heparin Sodium (Porcine) (Heparin (5000 Units/1ml)) 5,000 unit BID SC Last administered on 04/01/19 11:27; Admin Dose 5,000 UNIT; Start 03/29/19 at 21:00 Metoclopramide HCl (Reglan) 5 mg Q6 IV Last administered on 04/01/19 11:29; Admin Dose 5 MG; Start 03/29/19 at 18:00 Meropenem/Sodium Chloride 50 ml @ 100 mls/hr Q24H IVPB Last administered on 03/31/19at 17:54; Admin Dose 100 MLS/HR; Start 03/29/19 at 18:00 Diagnostic Test (Pha) (Accu-Chek) 1 ea 02 XX Last administered on 04/01/19at 02:20; Admin Dose 1 EA; Start 04/01/19 at 02:00 Methylprednisolone Sodium Succinate (Solu-Medrol) 60 mg Q8 IV Last administered on 04/01/19at 06:02; Admin Dose 60 MG; Start 03/31/19 at 10:30 Insulin Aspart (Novolog Insulin Pen) NOVOLOG *MODERATE* ALGORITHM WITH MEALS BEDTIME SC Last administered on 03/31/19 20:29; Admin Dose 2 UNIT; Start 03/31/19 at 21:00 Metoclopramide HCl (Reglan) 5 mg Q6H PRN IV NAUSEA; Start 04/01/19 at 09:35 Assessment/Plan Hospital Course (Demo Recall) IMPRESSION: 1. Acute hypoxemic respiratory failure requiring BiPAP support. Chest x-ray demonstrates pulmonary edema With small right effusion. 2. Acute on chronic renal failure, now requiring dialysis. 3. Peripheral vascular disease, status post revascularization. 4. Likely aspiration pneumonia as well. 5. Diabetes mellitus. 6. History of hypertension. 7. Benign prostatic hypertrophy. RECOMMENDATIONS: 1. Continue BiPAP for now. Trial of high flow O2 2. Aspiration precautions 3. Empiric trial of steroids possible cryptogenic organizing pneumonia. 4. Hemodialysis per nephrology. Critical care time 40 minutes. Keep in ICU until FiO2 less than 50%. DMITRI PAIGE MD, [facility] Apr 01, 2019 12:09
--- NOTE | 2019-04-01 15:24 | CONS ---
Assessment/Plan Assessment/Plan Hospital Course (Demo Recall) assessment/impression - acute hypoxic resp failure, probably multifactorial: first, fluid overload. Pt's oxygenation improved after undergoing dialysis and so fluid overload is a significant factor. Second, I suspect aspiration pneumonia/pneumonitis. Pt reportedly was having spells of congested cough upon arrival at ICU. Pt has h/o "excessive saliva production" since 08/2018 according to Pt's daughter in law. This increases a risk of aspiration pneumonia and/or pneumonitis. 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 management d/w Pt, his RN the critical care time I took to care for this Pt today was from 1415 to 1445 Consultation Date/Type/Reason Admit Date/Time Mar 23, 2019 at 06:13 Initial Consult Date 03/28/19 Type of Consult ID Requesting Provider: JOSE PARRY MD Date/Time of Note DATE: 04/01/19 TIME: 15:19 24 HR Interval Summary Constitutional: improved, requiring O2 Detailed Summary Eyes: no complaints ENT: no complaints Respiratory: cough, shortness of breath Cardiovascular: no complaints Gastrointestinal: no complaints Genitourinary: no complaints Musculoskeletal: other (intermittent pain of R foot/toes) Skin: no complaints Exam/Review of Systems Exam Vitals Vital Signs Date Temp Pulse Resp B/P (MAP) Pulse Ox O2 O2 Flow FiO2 Time Delivery Rate 04/01/19 83 16 98 Nasal 14:21 Cannula 04/01/19 45 14:21 04/01/19 160/76 14:00 (104) 04/01/19 98.2 12:00 03/28/19 8.0 13:25 Intake and Output 03/31/19 03/31/19 04/01/19 1515:00 23:00 07:00 IntakeIntake Total 900 ml 130 ml OutputOutput Total 0 ml 25 ml 230 ml BalanceBalance 900 ml 105 ml -230 ml Constitutional: alert, oriented, frail Psych: no complaints, nl mood/affect Head: normocephalic, atraumatic Eyes: nl conjunctiva, nl lids, nl sclera ENMT: nl external ears & nose, nl nasal mucosa & septum, mucosa pink and moist Neck: non-tender Respiratory: clear to auscultation, normal air movement Cardiovascular: regular rate and rhythm, nl pulses Gastrointestinal: soft, non-tender; No distended, No tender Musculoskeletal: other (s/p amputation of R 5th toe, 1st-2nd toes are necrotic) Extremities: edema, pitting pedal edema Neurological: nl mental status, nl speech Skin: No rash or lesions Results Result Diagram: 04/01/19 0430 04/01/19 0430 Results 24hrs Laboratory Tests Test 03/31/19 17:03 03/31/19 20:27 04/01/19 02:18 04/01/19 04:30 Bedside Glucose 193 224 H 197 White Blood Count 6.0 # Red Blood Count 3.41 #L Hemoglobin 10.1 #L Hematocrit 31.1 #L Mean Corpuscular 91.2 Volume Mean Corpuscular 29.6 Hemoglobin Mean Corpuscular 32.5 Hemoglobin Concent Red Cell 14.2 Distribution Width Platelet Count 320 Mean Platelet Volume 9.8 Immature 0.800 H Granulocytes % Neutrophils % Segmented 90 H Neutrophils % (Manual) Band Neutrophils % 2 (Manual) Lymphocytes % Lymphocytes % 6 L (Manual) Monocytes % Monocytes % (Manual) 2 Nucleated Red Blood 2 H Cells % Immature 0.050 H Granulocytes # Neutrophils # Neutrophils # 5.4 (Manual) Band Neutrophils # 0.1 Lymphocytes (Manual) 0.3 L Lymphocytes # Monocytes # Monocytes # (Manual) 0.1 L Platelet Estimate NORMAL Giant Platelets 2 H Polychromasia 1+ Anisocytosis 1+ Macrocytosis 2+ Sodium Level 133 L Potassium Level 4.8 Chloride Level 97 Carbon Dioxide Level 23 Anion Gap 13 Blood Urea Nitrogen 63 H Creatinine 6.38 H Est Glomerular 9 L Filtrat Rate mL/min Glucose Level 205 # Calcium Level 8.6 Phosphorus Level 4.6 Test 04/01/19 08:16 04/01/19 11:24 04/01/19 12:32 Bedside Glucose 137 147 163 Medications Medication Current Medications Albuterol (Proventil 0.083% (Neb)) 2.5 mg ICU RECOVERY PRN HHN .WHEEZING; Start 03/23/19 at 11:30 Aspirin (Aspirin) 325 mg DAILY PO Last administered on 04/01/19 11:17; Admin Dose 325 MG; Start 03/24/19 at 09:00 Amlodipine Besylate (Norvasc) 5 mg DAILY PO Last administered on 04/01/19 11:18; Admin Dose 5 MG; Start 03/24/19 at 09:00 Atorvastatin Calcium (Lipitor) 40 mg QHS PO Last administered on 03/31/19 20:23; Admin Dose 40 MG; Start 03/23/19 at 21:00 Carvedilol (Coreg) 12.5 mg BID PO Last administered on 04/01/19 11:19; Admin Dose 12.5 MG; Start 03/23/19 at 21:00 Linagliptin (Tradjenta) 5 mg DAILY PO Last administered on 04/01/19 11:28; Admin Dose 5 MG; Start 03/24/19 at 09:00 Ranitidine HCl (Zantac) 150 mg DAILY PO Last administered on 04/01/19 11:17; Admin Dose 150 MG; Start 03/24/19 at 09:00 Ondansetron HCl (Zofran Inj) 4 mg Q4H PRN IV NAUSEA AND/OR VOMITING Last administered on 03/28/19 20:28; Admin Dose 4 MG; Start 03/23/19 at 18:00 Hydromorphone HCl (Dilaudid) 2 mg Q4H PRN IV SEVERE PAIN LEVEL 7-10 Last administered on 03/31/19 17:00; Admin Dose 2 MG; Start 03/23/19 at 18:00 Miscellaneous Information 1 ea NOTE XX ; Start 03/23/19 at 18:30 Glucose (Glutose) 15 gm Q15M PRN PO DECREASED GLUCOSE; Start 03/23/19 at 18:30 Glucose (Glutose) 22.5 gm Q15M PRN PO DECREASED GLUCOSE; Start 03/23/19 at 18:30 Dextrose (D50w Syringe) 25 ml Q15M PRN IV DECREASED GLUCOSE; Start 03/23/19 at 18:30 Dextrose (D50w Syringe) 50 ml Q15M PRN IV DECREASED GLUCOSE; Start 03/23/19 at 18:30 Glucagon (Glucagen) 1 mg Q15M PRN IM DECREASED GLUCOSE; Start 03/23/19 at 18:30 Glucose (Glutose) 15 gm Q15M PRN BUCCAL DECREASED GLUCOSE; Start 03/23/19 at 18:30 Epoetin Joseph-epbx (Retacrit (Esrd)) 10,000 unit TuThSa@1700 SC Last administered on 03/31/19at 17:54; Admin Dose 10,000 UNIT; Start 03/24/19 at 17:00 Acetaminophen/ Hydrocodone Bitart ([place] (5/325)) 1 tab Q6H PRN PO .MOD PAIN 4- 6 Last administered on 03/25/19at 14:33; Admin Dose 1 TAB; Start 03/24/19 at 22:30 Calcium Acetate (Phoslo) 667 mg WITH MEALS PO Last administered on 04/01/19at 11:28; Admin Dose 667 MG; Start 03/26/19 at 12:00 Albumin Human 100 ml @ 100 mls/hr WITH DIALYSIS PRN IV SBP <90 DURING DIALYSIS Last administered on 03/29/19at 10:43; Admin Dose 100 MLS/HR; Start 03/27/19 at 12:00 Albuterol/ Ipratropium (Duoneb) 3 ml Q4HWA RESP THERAPY HHN Last administered on 04/01/19at 14:21; Admin Dose 3 ML; Start 03/27/19 at 21:00 Heparin Sodium (Porcine) (Heparin (1000 Units/ml)) 3,000 unit AFTER DIALYSIS CATHETER Last administered on 04/01/19at 10:14; Admin Dose 3,000 UNIT; Start 03/28/19 at 09:30 Magnesium Hydroxide (Milk Of Mag) 30 ml DAILY PRN PO CONSTIPATION Last administered on 03/28/19 20:48; Admin Dose 30 ML; Start 03/28/19 at 15:30 Heparin Sodium (Porcine) (Heparin (5000 Units/1ml)) 5,000 unit BID SC Last administered on 04/01/19 11:27; Admin Dose 5,000 UNIT; Start 03/29/19 at 21:00 Metoclopramide HCl (Reglan) 5 mg Q6 IV Last administered on 04/01/19 11:29; Admin Dose 5 MG; Start 03/29/19 at 18:00 Meropenem/Sodium Chloride 50 ml @ 100 mls/hr Q24H IVPB Last administered on 17:54; Admin Dose 100 MLS/HR; Start 03/29/19 at 18:00 Diagnostic Test (Pha) (Accu-Chek) 1 ea 02 XX Last administered on 04/01/19 02:20; Admin Dose 1 EA; Start 04/01/19 at 02:00 Methylprednisolone Sodium Succinate (Solu-Medrol) 60 mg Q8 IV Last administered on 04/01/19 06:02; Admin Dose 60 MG; Start 03/31/19 at 10:30 Insulin Aspart (Novolog Insulin Pen) NOVOLOG *MODERATE* ALGORITHM WITH MEALS BEDTIME SC Last administered on 04/01/19 12:37; Admin Dose 2 UNIT; Start 03/31/19 at 21:00 Metoclopramide HCl (Reglan) 5 mg Q6H PRN IV NAUSEA; Start 04/01/19 at 09:35 LUDMILA ANTOINE M.D. Apr 01, 2019 15:24
--- NOTE | 2019-04-01 17:30 | CONS ---
Assessment/Plan Assessment/Plan Hospital Course (Demo Recall) Acute respiratory failure Acute kidney injury on hemodialysis Peripheral arterial disease status post bypass Hypertension Preserved left ventricular ejection fraction echocardiogram January 2019 Fluid management via hemodialysis as per nephrology Currently on high flow oxygen and feeling less short of breath Continue statin and aspirin therapy if able to take p.o., if no contraindication, change asa to 81mg daily Given blood pressure on the higher side, would increase Norvasc to twice daily Consultation Date/Type/Reason Admit Date/Time Mar 23, 2019 at 06:13 Initial Consult Date 03/28/19 Type of Consult Cardiology Requesting Provider: JOSE PARRY MD Date/Time of Note DATE: 04/01/19 TIME: 17:28 24 HR Interval Summary Free Text/Dictation No shortness of breath, chest pain palpitations Exam/Review of Systems Vital Signs Vitals Vital Signs Date Temp Pulse Resp B/P (MAP) Pulse Ox O2 O2 Flow FiO2 Time Delivery Rate 04/01/19 80 16 96 Nasal 16:56 Cannula 04/01/19 45 16:56 04/01/19 160/76 14:00 (104) 04/01/19 98.2 12:00 03/28/19 8.0 13:25 Intake and Output 03/31/19 03/31/19 04/01/19 1515:00 23:00 07:00 IntakeIntake Total 900 ml 130 ml OutputOutput Total 0 ml 25 ml 230 ml BalanceBalance 900 ml 105 ml -230 ml Exam Constitutional: alert, oriented (Sitting in chair, no apparent distress) Head: normocephalic Respiratory: other (Coarse breath sounds bilaterally, no wheezing) Cardiovascular: regular rate and rhythm (S1-S2 heard) Gastrointestinal: soft, non-tender, bowel sounds Extremities: edema Labs Result Diagram: 04/01/19 0430 04/01/19 0430 Results 24hrs Laboratory Tests Test 03/31/19 20:27 04/01/19 02:18 04/01/19 04:30 04/01/19 08:16 Bedside Glucose 224 H 197 137 White Blood Count 6.0 # Red Blood Count 3.41 #L Hemoglobin 10.1 #L Hematocrit 31.1 #L Mean Corpuscular 91.2 Volume Mean Corpuscular 29.6 Hemoglobin Mean Corpuscular 32.5 Hemoglobin Concent Red Cell 14.2 Distribution Width Platelet Count 320 Mean Platelet Volume 9.8 Immature 0.800 H Granulocytes % Neutrophils % Segmented 90 H Neutrophils % (Manual) Band Neutrophils % 2 (Manual) Lymphocytes % Lymphocytes % 6 L (Manual) Monocytes % Monocytes % (Manual) 2 Nucleated Red Blood 2 H Cells % Immature 0.050 H Granulocytes # Neutrophils # Neutrophils # 5.4 (Manual) Band Neutrophils # 0.1 Lymphocytes (Manual) 0.3 L Lymphocytes # Monocytes # Monocytes # (Manual) 0.1 L Platelet Estimate NORMAL Giant Platelets 2 H Polychromasia 1+ Anisocytosis 1+ Macrocytosis 2+ Sodium Level 133 L Potassium Level 4.8 Chloride Level 97 Carbon Dioxide Level 23 Anion Gap 13 Blood Urea Nitrogen 63 H Creatinine 6.38 H Est Glomerular 9 L Filtrat Rate mL/min Glucose Level 205 # Calcium Level 8.6 Phosphorus Level 4.6 Test 04/01/19 11:24 04/01/19 12:32 Bedside Glucose 147 163 Medications Medications Current Medications Albuterol (Proventil 0.083% (Neb)) 2.5 mg ICU RECOVERY PRN HHN .WHEEZING; Start 03/23/19 at 11:30 Aspirin (Aspirin) 325 mg DAILY PO Last administered on 04/01/19 11:17; Admin Dose 325 MG; Start 03/24/19 at 09:00 Amlodipine Besylate (Norvasc) 5 mg DAILY PO Last administered on 04/01/19 11:18; Admin Dose 5 MG; Start 03/24/19 at 09:00 Atorvastatin Calcium (Lipitor) 40 mg QHS PO Last administered on 03/31/19at 20:23; Admin Dose 40 MG; Start 03/23/19 at 21:00 Carvedilol (Coreg) 12.5 mg BID PO Last administered on 04/01/19 11:19; Admin Dose 12.5 MG; Start 03/23/19 at 21:00 Linagliptin (Tradjenta) 5 mg DAILY PO Last administered on 04/01/19 11:28; Admin Dose 5 MG; Start 03/24/19 at 09:00 Ranitidine HCl (Zantac) 150 mg DAILY PO Last administered on 04/01/19 11:17; Admin Dose 150 MG; Start 03/24/19 at 09:00 Ondansetron HCl (Zofran Inj) 4 mg Q4H PRN IV NAUSEA AND/OR VOMITING Last administered on 03/28/19 20:28; Admin Dose 4 MG; Start 03/23/19 at 18:00 Hydromorphone HCl (Dilaudid) 2 mg Q4H PRN IV SEVERE PAIN LEVEL 7-10 Last administered on 03/31/19 17:00; Admin Dose 2 MG; Start 03/23/19 at 18:00 Miscellaneous Information 1 ea NOTE XX ; Start 03/23/19 at 18:30 Glucose (Glutose) 15 gm Q15M PRN PO DECREASED GLUCOSE; Start 03/23/19 at 18:30 Glucose (Glutose) 22.5 gm Q15M PRN PO DECREASED GLUCOSE; Start 03/23/19 at 18:30 Dextrose (D50w Syringe) 25 ml Q15M PRN IV DECREASED GLUCOSE; Start 03/23/19 at 18:30 Dextrose (D50w Syringe) 50 ml Q15M PRN IV DECREASED GLUCOSE; Start 03/23/19 at 18:30 Glucagon (Glucagen) 1 mg Q15M PRN IM DECREASED GLUCOSE; Start 03/23/19 at 18:30 Glucose (Glutose) 15 gm Q15M PRN BUCCAL DECREASED GLUCOSE; Start 03/23/19 at 18:30 Epoetin Joseph-epbx (Retacrit (Esrd)) 10,000 unit TuThSa@1700 SC Last administered on 03/31/19 17:54; Admin Dose 10,000 UNIT; Start 03/24/19 at 17:00 Acetaminophen/ Hydrocodone Bitart ([place] (5/325)) 1 tab Q6H PRN PO .MOD PAIN 4- 6 Last administered on 03/25/19 14:33; Admin Dose 1 TAB; Start 03/24/19 at 22:30 Calcium Acetate (Phoslo) 667 mg WITH MEALS PO Last administered on 04/01/19 11:28; Admin Dose 667 MG; Start 03/26/19 at 12:00 Albumin Human 100 ml @ 100 mls/hr WITH DIALYSIS PRN IV SBP <90 DURING DIALYSIS Last administered on 03/29/19 10:43; Admin Dose 100 MLS/HR; Start 03/27/19 at 12:00 Albuterol/ Ipratropium (Duoneb) 3 ml Q4HWA RESP THERAPY HHN Last administered on 04/01/19 16:55; Admin Dose 3 ML; Start 03/27/19 at 21:00 Heparin Sodium (Porcine) (Heparin (1000 Units/ml)) 3,000 unit AFTER DIALYSIS CATHETER Last administered on 04/01/19 10:14; Admin Dose 3,000 UNIT; Start 03/28/19 at 09:30 Magnesium Hydroxide (Milk Of Mag) 30 ml DAILY PRN PO CONSTIPATION Last administered on 03/28/19 20:48; Admin Dose 30 ML; Start 03/28/19 at 15:30 Heparin Sodium (Porcine) (Heparin (5000 Units/1ml)) 5,000 unit BID SC Last administered on 04/01/19 11:27; Admin Dose 5,000 UNIT; Start 03/29/19 at 21:00 Metoclopramide HCl (Reglan) 5 mg Q6 IV Last administered on 04/01/19 11:29; Admin Dose 5 MG; Start 03/29/19 at 18:00 Meropenem/Sodium Chloride 50 ml @ 100 mls/hr Q24H IVPB Last administered on 03/31/19 17:54; Admin Dose 100 MLS/HR; Start 03/29/19 at 18:00 Diagnostic Test (Pha) (Accu-Chek) 1 ea 02 XX Last administered on 04/01/19 02:20; Admin Dose 1 EA; Start 04/01/19 at 02:00 Methylprednisolone Sodium Succinate (Solu-Medrol) 60 mg Q8 IV Last administered on 04/01/19 15:20; Admin Dose 60 MG; Start 03/31/19 at 10:30 Insulin Aspart (Novolog Insulin Pen) NOVOLOG *MODERATE* ALGORITHM WITH MEALS BEDTIME SC Last administered on 04/01/19 12:37; Admin Dose 2 UNIT; Start 03/31/19 at 21:00 Metoclopramide HCl (Reglan) 5 mg Q6H PRN IV NAUSEA; Start 04/01/19 at 09:35 Jose Richard DO Apr 01, 2019 17:30
[2019-04-01] MEDS: MEROPENEM 500MG/50 ML (PMX) 50 ML IVPB SCH (18:08)
[2019-04-01] MEDS ORDERED: CHLORPROMAZINE 25 MG TAB PO PRN (20:00)
--- NOTE | 2019-04-01 20:03 | PN ---
Date/Time of Note Date/Time of Note DATE: 04/01/19 TIME: 19:55 Assessment/Plan VTE Prophylaxis Risk score (from Ns)>0 risk: 8 SCD applied (from [facility] [place]): No SCD contraindicated: bilateral LE trauma Pharmacological prophylaxis: heparin Lines/Catheters Urinary Cath still in place: Yes Reason Cath still needed: urinary retention Assessment/Plan Problems: (1) Acute respiratory failure with hypoxia Status: Acute Comment: Resp. status improving slowly. Cont. O2, steroids, meropenem. (2) Nosocomial pneumonia Status: Acute Comment: Cont. meropenem per ID. Pt. improving clinically w/ normalization of WBC and improvement of respiratory status (3) Acute on chronic renal failure Status: Acute Comment: Cont. HD per nephrology. Likely this is new steady state of ESRD (4) Type 2 diabetes mellitus with diabetic peripheral angiopathy with gangrene Status: Acute Comment: S/p RLE revascularization. Awaiting distal amputation R foot once more stable. BG higher now that he is on steroids. Will add lantus 8 units qhs and monitor. (5) Essential (primary) hypertension Status: Chronic Comment: BP has been above goal. Cardiology increasing amlodipine to 5 mg bid (6) Hyperlipidemia Status: Chronic Comment: Cont. statin (7) Benign prostatic hyperplasia with urinary obstruction Status: Chronic Comment: Off prostate agents. Currently w/ short cath. Will monitor after d/c. (8) Anemia Status: Chronic Comment: Improved today. Cont. EPO and monitor (9) Hiccups Status: Acute Comment: thorazaine 25 mg prn Result Diagram: 04/01/19 0430 04/01/19 0430 Results 24hrs Laboratory Tests Test 03/31/19 20:27 04/01/19 02:18 04/01/19 04:30 04/01/19 08:16 Bedside Glucose 224 H 197 137 White Blood Count 6.0 # Red Blood Count 3.41 #L Hemoglobin 10.1 #L Hematocrit 31.1 #L Mean Corpuscular 91.2 Volume Mean Corpuscular 29.6 Hemoglobin Mean Corpuscular 32.5 Hemoglobin Concent Red Cell 14.2 Distribution Width Platelet Count 320 Mean Platelet Volume 9.8 Immature 0.800 H Granulocytes % Neutrophils % Segmented 90 H Neutrophils % (Manual) Band Neutrophils % 2 (Manual) Lymphocytes % Lymphocytes % 6 L (Manual) Monocytes % Monocytes % (Manual) 2 Nucleated Red Blood 2 H Cells % Immature 0.050 H Granulocytes # Neutrophils # Neutrophils # 5.4 (Manual) Band Neutrophils # 0.1 Lymphocytes (Manual) 0.3 L Lymphocytes # Monocytes # Monocytes # (Manual) 0.1 L Platelet Estimate NORMAL Giant Platelets 2 H Polychromasia 1+ Anisocytosis 1+ Macrocytosis 2+ Sodium Level 133 L Potassium Level 4.8 Chloride Level 97 Carbon Dioxide Level 23 Anion Gap 13 Blood Urea Nitrogen 63 H Creatinine 6.38 H Est Glomerular 9 L Filtrat Rate mL/min Glucose Level 205 # Calcium Level 8.6 Phosphorus Level 4.6 Test 04/01/19 11:24 04/01/19 12:32 04/01/19 17:53 Bedside Glucose 147 163 202 Subjective 24 Hr Interval Summary Constitutional: no complaints, improved Respiratory: shortness of breath (controlled w/ O2 and feels better than yesterday) Cardiovascular: no complaints Gastrointestinal: nausea (yesterday when he was in severe pain. ), other (hiccups) Genitourinary: no complaints Musculoskeletal: bone/joint pain (severe yesterday) Neurologic: no complaints Exam/Review of Systems Exam Vitals VS - Last 72 Hours, by Label Date Temp Pulse Resp B/P (MAP) Pulse Ox O2 O2 Flow FiO2 Time Delivery Rate 04/01/19 84 17 138/71 95 High Flow 18:00 (93) 04/01/19 94 45 17:38 04/01/19 80 17 140/73 97 High Flow 17:00 (95) 04/01/19 80 16 96 Nasal 16:56 Cannula 04/01/19 96 45 16:56 04/01/19 98.4 81 24 144/85 94 High Flow 16:00 (104) 04/01/19 80 16:00 04/01/19 81 24 144/85 94 16:00 (104) 04/01/19 79 12 152/70 100 High Flow 15:00 (97) 04/01/19 83 16 98 Nasal 14:21 Cannula 04/01/19 98 45 14:21 04/01/19 91 19 160/76 100 High Flow 14:00 (104) 04/01/19 88 18 161/77 High Flow 13:00 (105) 04/01/19 98.2 88 147/76 95 High Flow 12:00 (99) 04/01/19 84 12:00 04/01/19 96 50 11:30 04/01/19 85 152/74 97 High Flow 11:00 (100) 04/01/19 87 10:40 04/01/19 81 10:15 04/01/19 80 155/84 96 High Flow 10:00 (107) 04/01/19 77 10:00 04/01/19 77 09:45 04/01/19 79 09:30 04/01/19 83 09:15 04/01/19 98.0 76 18 153/74 97 High Flow 09:00 (100) 04/01/19 72 09:00 04/01/19 75 08:45 04/01/19 75 08:30 04/01/19 79 16 96 Nasal 08:17 Cannula 04/01/19 96 60 08:17 04/01/19 75 08:15 04/01/19 73 08:00 04/01/19 73 18 146/72 93 High Flow 08:00 (96) 04/01/19 81 08:00 04/01/19 73 07:45 04/01/19 73 07:30 04/01/19 73 20 134/71 93 High Flow 07:25 (92) 04/01/19 74 07:15 04/01/19 79 141/67 92 High Flow 07:00 (91) 04/01/19 75 07:00 04/01/19 79 16 134/71 93 High Flow 06:00 (92) 04/01/19 94 60 05:43 04/01/19 76 18 139/71 93 High Flow 05:00 (93) 04/01/19 75 21 136/68 94 High Flow 04:00 (90) 04/01/19 76 04:00 04/01/19 72 20 136/74 93 High Flow 03:00 (94) 04/01/19 69 22 124/65 93 High Flow 02:00 (84) 04/01/19 96 60 01:52 04/01/19 20 141/68 95 High Flow 01:00 (92) 04/01/19 97.9 69 18 122/67 93 High Flow 00:00 (85) 04/01/19 69 00:00 03/31/19 73 23 130/71 95 High Flow 23:00 (90) 03/31/19 75 13 133/69 94 High Flow 22:00 (90) 03/31/19 95 60 21:45 03/31/19 75 27 138/68 92 High Flow 21:00 (91) Nasal Cannula 03/31/19 89 50 20:49 03/31/19 74 16 89 Nasal 50 20:49 Cannula 03/31/19 72 20:00 03/31/19 98.0 74 15 129/73 91 High Flow 20:00 (91) Nasal Cannula 03/31/19 74 20:00 03/31/19 77 15 135/67 90 High Flow 18:00 (89) 03/31/19 93 50 17:45 03/31/19 77 22 123/60 91 High Flow 17:00 (81) 03/31/19 74 16 92 Nasal 45 16:04 Cannula 03/31/19 92 45 16:04 03/31/19 98.6 74 15 119/61 92 High Flow 16:00 (80) 03/31/19 75 16:00 03/31/19 70 15 116/59 91 High Flow 15:00 (78) 03/31/19 70 16 117/59 94 High Flow 14:00 (78) 03/31/19 99 45 13:17 03/31/19 67 16 99 Nasal 45 13:14 Cannula 03/31/19 99 45 13:14 03/31/19 68 16 114/91 100 High Flow 13:00 (99) 03/31/19 70 12:00 03/31/19 98.3 69 20 108/52 99 High Flow 12:00 (70) 03/31/19 73 18 112/57 94 High Flow 11:00 (75) 03/31/19 76 14 113/57 93 High Flow 10:00 (75) 03/31/19 78 17 128/61 92 High Flow 09:00 (83) 03/31/19 74 08:00 03/31/19 98.3 74 11 119/61 93 High Flow 08:00 (80) 03/31/19 96 45 07:55 03/31/19 75 16 96 Nasal 45 07:55 Cannula 03/31/19 72 18 117/59 97 BIPAP 07:00 (78) 03/31/19 71 17 122/61 98 BIPAP 06:00 (81) 03/31/19 72 16 105/68 95 BIPAP 05:00 (80) 03/31/19 78 95 45 04:36 03/31/19 98.4 67 19 111/51 98 BIPAP 04:00 (71) 03/31/19 67 04:00 03/31/19 70 16 103/47 100 BIPAP 03:00 (65) 03/31/19 74 96 45 02:52 03/31/19 70 22 111/52 100 BIPAP 02:00 (71) 03/31/19 72 95 45 01:41 03/31/19 70 21 105/52 97 BIPAP 01:11 (69) 03/31/19 99.0 71 16 113/56 95 BIPAP 00:00 (75) 03/31/19 72 00:00 03/30/19 74 17 118/55 96 BIPAP 23:00 (76) 03/30/19 81 22:15 03/30/19 76 17 121/57 97 BIPAP 22:09 (78) 03/30/19 76 100 45 22:03 03/30/19 82 14 116/53 93 High Flow 21:00 (74) 03/30/19 85 22 94 100 20:11 03/30/19 94 45 20:10 03/30/19 Nasal 20:05 Cannula 03/30/19 97.9 82 14 121/52 91 High Flow 20:00 (75) 03/30/19 85 16 125/102 91 High Flow 19:00 (110) 03/30/19 95 45 18:23 03/30/19 77 18 140/59 94 High Flow 18:00 (86) 03/30/19 20 137/62 95 High Flow 17:00 (87) 03/30/19 73 22 132/60 100 High Flow 16:01 (84) 03/30/19 73 16:00 03/30/19 97.5 74 19 132/60 94 High Flow 16:00 (84) 03/30/19 69 15:55 03/30/19 69 15:40 03/30/19 69 15:25 03/30/19 69 15:10 03/30/19 71 23 154/62 98 High Flow 15:00 (92) 03/30/19 69 14:55 03/30/19 67 14:40 03/30/19 96 60 14:30 03/30/19 68 14:25 03/30/19 71 14:10 03/30/19 70 13 132/61 97 High Flow 14:00 (84) 03/30/19 70 13:55 03/30/19 72 13:40 03/30/19 71 13:25 03/30/19 73 13:10 03/30/19 71 14 124/62 94 High Flow 13:00 (82) 03/30/19 79 22 128/56 96 High Flow 12:55 (80) 03/30/19 75 12:55 03/30/19 80 12:00 03/30/19 97.5 81 18 128/56 96 High Flow 12:00 (80) 03/30/19 85 22 151/63 96 High Flow 11:00 (92) 03/30/19 98 75 10:39 03/30/19 79 18 126/57 96 BIPAP 10:00 (80) 03/30/19 69 16 117/50 88 BIPAP 09:00 (72) 03/30/19 75 100 75 08:17 03/30/19 97.3 77 17 144/69 100 BIPAP 08:00 (94) 03/30/19 79 08:00 03/30/19 67 12 114/54 99 BIPAP 07:00 (74) 03/30/19 74 12 128/58 100 BIPAP 06:00 (81) 03/30/19 69 100 75 05:27 03/30/19 73 13 125/55 99 BIPAP 05:00 (78) 03/30/19 97.9 69 16 109/49 100 BIPAP 04:00 (69) 03/30/19 68 04:00 03/30/19 71 100 75 03:07 03/30/19 67 19 102/51 98 BIPAP 03:00 (68) 03/30/19 68 16 103/46 99 BIPAP 02:00 (65) 03/30/19 73 100 75 01:05 03/30/19 72 22 101/48 100 BIPAP 01:00 (65) 03/30/19 77 00:00 03/30/19 98.2 76 16 125/55 100 BIPAP 00:00 (78) 03/29/19 180 23:38 03/29/19 75 100 75 23:33 03/29/19 75 17 115/51 100 BIPAP 23:00 (72) 03/29/19 75 16 110/49 93 BIPAP 22:00 (69) 03/29/19 75 100 75 21:03 03/29/19 78 17 130/57 98 BIPAP 21:00 (81) 03/29/19 78 20:00 03/29/19 98.4 79 18 125/54 98 BIPAP 20:00 (77) Vital Signs Date Temp Pulse Resp B/P (MAP) Pulse Ox O2 O2 Flow FiO2 Time Delivery Rate 04/01/19 84 17 138/71 95 High Flow 18:00 (93) 04/01/19 45 17:38 04/01/19 98.4 16:00 03/28/19 8.0 13:25 Intake and Output 03/31/19 03/31/19 04/01/19 1515:00 23:00 07:00 IntakeIntake Total 900 ml 130 ml OutputOutput Total 0 ml 25 ml 230 ml BalanceBalance 900 ml 105 ml -230 ml Constitutional: alert, oriented, well developed Psych: no complaints, nl mood/affect Respiratory: crackles/rales (expiratory) Cardiovascular: regular rate and rhythm; No edema, No murmurs/extra sounds, No rub Gastrointestinal: soft, nl liver, spleen, non-tender, bowel sounds; No mass, No rebound or guarding Musculoskeletal: No nl extremities to inspection (R distal foot wrapped) Extremities: No cyanosis, No clubbing, No edema Neurological: RN OTOLARYNGOLOGY II-XII intact, nl mental status, nl speech, nl strength Additional Comments Bedside Glucose - 72 Hours Test 03/29/19 21:31 03/30/19 00:44 03/30/19 05:17 03/30/19 09:19 Bedside 124 121 113 105 Glucose mg/dL (70-220) mg/dL (70-220) mg/dL (70-220) mg/dL (70-220) Test 03/30/19 13:21 03/30/19 17:26 03/30/19 21:11 03/31/19 00:56 Bedside 128 104 132 112 Glucose mg/dL (70-220) mg/dL (70-220) mg/dL (70-220) mg/dL (70-220) Test 03/31/19 04:29 03/31/19 08:27 03/31/19 12:31 03/31/19 17:03 Bedside 109 114 157 193 Glucose mg/dL (70-220) mg/dL (70-220) mg/dL (70-220) mg/dL (70-220) Test 03/31/19 20:27 04/01/19 02:18 04/01/19 08:16 04/01/19 11:24 Bedside 224 197 137 147 Glucose mg/dL (70-220) mg/dL (70-220) mg/dL (70-220) mg/dL (70-220) H Test 04/01/19 12:32 04/01/19 17:53 Bedside 163 202 Glucose mg/dL (70-220) mg/dL (70-220) Results Results 24hrs Laboratory Tests Test 03/31/19 20:27 04/01/19 02:18 04/01/19 04:30 04/01/19 08:16 Bedside Glucose 224 H 197 137 White Blood Count 6.0 # Red Blood Count 3.41 #L Hemoglobin 10.1 #L Hematocrit 31.1 #L Mean Corpuscular 91.2 Volume Mean Corpuscular 29.6 Hemoglobin Mean Corpuscular 32.5 Hemoglobin Concent Red Cell 14.2 Distribution Width Platelet Count 320 Mean Platelet Volume 9.8 Immature 0.800 H Granulocytes % Neutrophils % Segmented 90 H Neutrophils % (Manual) Band Neutrophils % 2 (Manual) Lymphocytes % Lymphocytes % 6 L (Manual) Monocytes % Monocytes % (Manual) 2 Nucleated Red Blood 2 H Cells % Immature 0.050 H Granulocytes # Neutrophils # Neutrophils # 5.4 (Manual) Band Neutrophils # 0.1 Lymphocytes (Manual) 0.3 L Lymphocytes # Monocytes # Monocytes # (Manual) 0.1 L Platelet Estimate NORMAL Giant Platelets 2 H Polychromasia 1+ Anisocytosis 1+ Macrocytosis 2+ Sodium Level 133 L Potassium Level 4.8 Chloride Level 97 Carbon Dioxide Level 23 Anion Gap 13 Blood Urea Nitrogen 63 H Creatinine 6.38 H Est Glomerular 9 L Filtrat Rate mL/min Glucose Level 205 # Calcium Level 8.6 Phosphorus Level 4.6 Test 04/01/19 11:24 04/01/19 12:32 04/01/19 17:53 Bedside Glucose 147 163 202 Medications Medication Current Medications Albuterol (Proventil 0.083% (Neb)) 2.5 mg ICU RECOVERY PRN HHN .WHEEZING; Start 03/23/19 at 11:30 Aspirin (Aspirin) 325 mg DAILY PO Last administered on 04/01/19 11:17; Admin Dose 325 MG; Start 03/24/19 at 09:00 Atorvastatin Calcium (Lipitor) 40 mg QHS PO Last administered on 03/31/19 20:23; Admin Dose 40 MG; Start 03/23/19 at 21:00 Carvedilol (Coreg) 12.5 mg BID PO Last administered on 04/01/19 11:19; Admin Dose 12.5 MG; Start 03/23/19 at 21:00 Linagliptin (Tradjenta) 5 mg DAILY PO Last administered on 04/01/19 11:28; Admin Dose 5 MG; Start 03/24/19 at 09:00 Ranitidine HCl (Zantac) 150 mg DAILY PO Last administered on 04/01/19 11:17; Admin Dose 150 MG; Start 03/24/19 at 09:00 Ondansetron HCl (Zofran Inj) 4 mg Q4H PRN IV NAUSEA AND/OR VOMITING Last administered on 03/28/19 20:28; Admin Dose 4 MG; Start 03/23/19 at 18:00 Hydromorphone HCl (Dilaudid) 2 mg Q4H PRN IV SEVERE PAIN LEVEL 7-10 Last administered on 03/31/19at 17:00; Admin Dose 2 MG; Start 03/23/19 at 18:00 Miscellaneous Information 1 ea NOTE XX ; Start 03/23/19 at 18:30 Glucose (Glutose) 15 gm Q15M PRN PO DECREASED GLUCOSE; Start 03/23/19 at 18:30 Glucose (Glutose) 22.5 gm Q15M PRN PO DECREASED GLUCOSE; Start 03/23/19 at 18:30 Dextrose (D50w Syringe) 25 ml Q15M PRN IV DECREASED GLUCOSE; Start 03/23/19 at 18:30 Dextrose (D50w Syringe) 50 ml Q15M PRN IV DECREASED GLUCOSE; Start 03/23/19 at 18:30 Glucagon (Glucagen) 1 mg Q15M PRN IM DECREASED GLUCOSE; Start 03/23/19 at 18:30 Glucose (Glutose) 15 gm Q15M PRN BUCCAL DECREASED GLUCOSE; Start 03/23/19 at 18:30 Epoetin Joseph-epbx (Retacrit (Esrd)) 10,000 unit TuThSa@1700 SC Last administered on 03/31/19 17:54; Admin Dose 10,000 UNIT; Start 03/24/19 at 17:00 Acetaminophen/ Hydrocodone Bitart ([place] (5/325)) 1 tab Q6H PRN PO .MOD PAIN 4- 6 Last administered on 03/25/19 14:33; Admin Dose 1 TAB; Start 03/24/19 at 22:30 Calcium Acetate (Phoslo) 667 mg WITH MEALS PO Last administered on 04/01/19 18:08; Admin Dose 667 MG; Start 03/26/19 at 12:00 Albumin Human 100 ml @ 100 mls/hr WITH DIALYSIS PRN IV SBP <90 DURING DIALYSIS Last administered on 03/29/19 10:43; Admin Dose 100 MLS/HR; Start 03/27/19 at 12:00 Albuterol/ Ipratropium (Duoneb) 3 ml Q4HWA RESP THERAPY HHN Last administered on 04/01/19 16:55; Admin Dose 3 ML; Start 03/27/19 at 21:00 Heparin Sodium (Porcine) (Heparin (1000 Units/ml)) 3,000 unit AFTER DIALYSIS CATHETER Last administered on 04/01/19 10:14; Admin Dose 3,000 UNIT; Start 03/28/19 at 09:30 Magnesium Hydroxide (Milk Of Mag) 30 ml DAILY PRN PO CONSTIPATION Last administered on 03/28/19 20:48; Admin Dose 30 ML; Start 03/28/19 at 15:30 Heparin Sodium (Porcine) (Heparin (5000 Units/1ml)) 5,000 unit BID SC Last administered on 04/01/19 11:27; Admin Dose 5,000 UNIT; Start 03/29/19 at 21:00 Metoclopramide HCl (Reglan) 5 mg Q6 IV Last administered on 04/01/19 18:08; Admin Dose 5 MG; Start 03/29/19 at 18:00 Meropenem/Sodium Chloride 50 ml @ 100 mls/hr Q24H IVPB Last administered on 04/01/19 18:08; Admin Dose 100 MLS/HR; Start 03/29/19 at 18:00 Diagnostic Test (Pha) (Accu-Chek) 1 ea 02 XX Last administered on 7/17/19at 0 2:20; Admin Dose 1 EA; Start 04/01/19 at 02:00 Methylprednisolone Sodium Succinate (Solu-Medrol) 60 mg Q8 IV Last administered on 04/01/19at 15:20; Admin Dose 60 MG; Start 03/31/19 at 10:30 Insulin Aspart (Novolog Insulin Pen) NOVOLOG *MODERATE* ALGORITHM WITH MEALS BEDTIME SC Last administered on 04/01/19at 18:18; Admin Dose 4 UNIT; Start 03/31/19 at 21:00 Metoclopramide HCl (Reglan) 5 mg Q6H PRN IV NAUSEA; Start 04/01/19 at 09:35 Amlodipine Besylate (Norvasc) 5 mg BID PO ; Start 04/01/19 at 21:00 Insulin Glargine (Lantus) 8 units DAILY@2000 SC ; Start 04/01/19 at 20:00 JOSE PARRY MD Apr 01, 2019 20:03
[2019-04-01] MEDS: ATORVASTATIN 40 MG TAB PO SCH (21:38)
[2019-04-01] MEDS: INSULIN GLARGINE [LANTus] (100 UNITS/ML) SYG SC SCH (21:48)
[2019-04-02] VITALS (35 sets, daily range): BP systolic 105–140; BP diastolic 59–79; PULSE 60–79; RESP 11–29
[2019-04-02] MEDS: METOCLOPRAMIDE 10 MG INJ IV SCH ×4 (00:07→16:37)
[2019-04-02] MEDS: ACCU-CHEK XX SCH (01:49)
[2019-04-02] MEDS: METHYLPREDNISOLONE 125 MG INJ IV SCH ×3 (05:32→22:04)
[2019-04-02] MEDS: ALBUTEROL/IPRATROPIUM (NEB) 3 ML AMP HHN SCH ×4 (07:57→20:30)
--- NOTE | 2019-04-02 08:21 | CONS ---
Assessment/Plan Assessment/Plan Assessment/Plan 1. CKD/ARF, to be HD tomm. 2. P is nl, will hold P binder 3. Will dc short cath, ua and cult obtained pre and monitor post 4. Anemia is stable 5. Clinically is improving re:pneumoia 6. BP is controlled Consultation Date/Type/Reason Admit Date/Time Mar 23, 2019 at 06:13 Type of Consult Nephrology Date/Time of Note DATE: 04/02/19 TIME: 08:19 Respiratory: cough (mild and sl sob) Cardiovascular: No chest pain Gastrointestinal: no complaints Genitourinary: other (short in place) Exam/Review of Systems Vital Signs Vitals Vital Signs Date Temp Pulse Resp B/P (MAP) Pulse Ox O2 O2 Flow FiO2 Time Delivery Rate 04/02/19 90 50 07:58 04/02/19 72 18 07:58 04/02/19 138/62 High Flow 06:00 (87) 04/02/19 98.0 04:00 Intake and Output 04/01/19 04/01/19 04/02/19 1515:00 23:00 07:00 IntakeIntake Total 120 ml 150 ml OutputOutput Total 2510 ml 25 ml 15 ml BalanceBalance -2510 ml 95 ml 135 ml Exam Neck: No jvd Respiratory: diminished breath sounds; No crackles/rales Cardiovascular: regular rate and rhythm Extremities: edema (trace sacral edema) Labs Result Diagram: 04/02/19 0440 04/02/19 0440 Results 24hrs Laboratory Tests Test 04/01/19 11:24 04/01/19 12:32 04/01/19 17:53 04/01/19 19:57 Bedside Glucose 147 163 202 243 H Test 04/01/19 21:40 04/02/19 01:45 04/02/19 01:46 04/02/19 04:40 Bedside Glucose 243 H 248 H 282 H White Blood Count 9.3 # Red Blood Count 3.20 L Hemoglobin 9.4 L Hematocrit 28.9 L Mean Corpuscular 90.3 Volume Mean Corpuscular 29.4 Hemoglobin Mean Corpuscular 32.5 Hemoglobin Concent Red Cell 14.2 Distribution Width Platelet Count 341 Mean Platelet Volume 10.1 Immature 1.400 H Granulocytes % Neutrophils % 89.5 H Lymphocytes % 4.6 L Monocytes % 4.4 Eosinophils % 0.0 Basophils % 0.1 Nucleated Red Blood 0.6 H Cells % Immature 0.130 H Granulocytes # Neutrophils # 8.3 H Lymphocytes # 0.4 L Monocytes # 0.4 Eosinophils # 0.0 Basophils # 0.0 Nucleated Red Blood 0.1 H Cells # Sodium Level 135 Potassium Level 4.9 Chloride Level 97 Carbon Dioxide Level 27 Anion Gap 11 Blood Urea Nitrogen 52 H Creatinine 4.21 #H Est Glomerular 14 L Filtrat Rate mL/min Glucose Level 229 H Calcium Level 8.4 Phosphorus Level 3.0 Medications Medications Current Medications Albuterol (Proventil 0.083% (Neb)) 2.5 mg ICU RECOVERY PRN HHN .WHEEZING; Start 03/23/19 at 11:30 Aspirin (Aspirin) 325 mg DAILY PO Last administered on 04/01/19 11:17; Admin Dose 325 MG; Start 03/24/19 at 09:00 Atorvastatin Calcium (Lipitor) 40 mg QHS PO Last administered on 04/01/19 21:38; Admin Dose 40 MG; Start 03/23/19 at 21:00 Carvedilol (Coreg) 12.5 mg BID PO Last administered on 04/01/19 21:38; Admin Dose 12.5 MG; Start 03/23/19 at 21:00 Linagliptin (Tradjenta) 5 mg DAILY PO Last administered on 04/01/19 11:28; Admin Dose 5 MG; Start 03/24/19 at 09:00 Ranitidine HCl (Zantac) 150 mg DAILY PO Last administered on 04/01/19 11:17; Admin Dose 150 MG; Start 03/24/19 at 09:00 Ondansetron HCl (Zofran Inj) 4 mg Q4H PRN IV NAUSEA AND/OR VOMITING Last administered on 03/28/19 20:28; Admin Dose 4 MG; Start 03/23/19 at 18:00 Hydromorphone HCl (Dilaudid) 2 mg Q4H PRN IV SEVERE PAIN LEVEL 7-10 Last administered on 03/31/19 17:00; Admin Dose 2 MG; Start 03/23/19 at 18:00 Miscellaneous Information 1 ea NOTE XX ; Start 03/23/19 at 18:30 Glucose (Glutose) 15 gm Q15M PRN PO DECREASED GLUCOSE; Start 03/23/19 at 18:30 Glucose (Glutose) 22.5 gm Q15M PRN PO DECREASED GLUCOSE; Start 03/23/19 at 18:30 Dextrose (D50w Syringe) 25 ml Q15M PRN IV DECREASED GLUCOSE; Start 03/23/19 at 18:30 Dextrose (D50w Syringe) 50 ml Q15M PRN IV DECREASED GLUCOSE; Start 03/23/19 at 18:30 Glucagon (Glucagen) 1 mg Q15M PRN IM DECREASED GLUCOSE; Start 03/23/19 at 18:30 Glucose (Glutose) 15 gm Q15M PRN BUCCAL DECREASED GLUCOSE; Start 03/23/19 at 18:30 Epoetin Joseph-epbx (Retacrit (Esrd)) 10,000 unit TuThSa@1700 SC Last administered on 03/31/19 17:54; Admin Dose 10,000 UNIT; Start 03/24/19 at 17:00 Acetaminophen/ Hydrocodone Bitart ([place] (5/325)) 1 tab Q6H PRN PO .MOD PAIN 4- 6 Last administered on 03/25/19 14:33; Admin Dose 1 TAB; Start 03/24/19 at 22:30 Calcium Acetate (Phoslo) 667 mg WITH MEALS PO Last administered on 04/01/19 18:08; Admin Dose 667 MG; Start 03/26/19 at 12:00 Albumin Human 100 ml @ 100 mls/hr WITH DIALYSIS PRN IV SBP <90 DURING DIALYSIS Last administered on 03/29/19at 10:43; Admin Dose 100 MLS/HR; Start 03/27/19 at 12:00 Albuterol/ Ipratropium (Duoneb) 3 ml Q4HWA RESP THERAPY HHN Last administered on 04/02/19 07:57; Admin Dose 3 ML; Start 03/27/19 at 21:00 Heparin Sodium (Porcine) (Heparin (1000 Units/ml)) 3,000 unit AFTER DIALYSIS CATHETER Last administered on 04/01/19 10:14; Admin Dose 3,000 UNIT; Start 03/28/19 at 09:30 Magnesium Hydroxide (Milk Of Mag) 30 ml DAILY PRN PO CONSTIPATION Last administered on 03/28/19 20:48; Admin Dose 30 ML; Start 03/28/19 at 15:30 Heparin Sodium (Porcine) (Heparin (5000 Units/1ml)) 5,000 unit BID SC Last administered on 04/01/19 21:39; Admin Dose 5,000 UNIT; Start 03/29/19 at 21:00 Metoclopramide HCl (Reglan) 5 mg Q6 IV Last administered on 04/02/19 05:31; Admin Dose 5 MG; Start 03/29/19 at 18:00 Meropenem/Sodium Chloride 50 ml @ 100 mls/hr Q24H IVPB Last administered on 04/01/19 18:08; Admin Dose 100 MLS/HR; Start 03/29/19 at 18:00 Diagnostic Test (Pha) (Accu-Chek) 1 ea 02 XX Last administered on 04/02/19 01:49; Admin Dose 1 EA; Start 04/01/19 at 02:00 Methylprednisolone Sodium Succinate (Solu-Medrol) 60 mg Q8 IV Last administered on 04/02/19 05:32; Admin Dose 60 MG; Start 03/31/19 at 10:30 Insulin Aspart (Novolog Insulin Pen) NOVOLOG *MODERATE* ALGORITHM WITH MEALS BEDTIME SC Last administered on 04/01/19 21:44; Admin Dose 2 UNIT; Start 03/31/19 at 21:00 Metoclopramide HCl (Reglan) 5 mg Q6H PRN IV NAUSEA; Start 04/01/19 at 09:35 Amlodipine Besylate (Norvasc) 5 mg BID PO Last administered on 04/01/19 21:38; Admin Dose 5 MG; Start 04/01/19 at 21:00 Insulin Glargine (Lantus) 8 units DAILY@2000 SC Last administered on 04/01/19 21:48; Admin Dose 8 UNITS; Start 04/01/19 at 20:00 Chlorpromazine (Thorazine) 25 mg BID PRN PO hiccups; Start 04/01/19 at 20:00 DOT ASHLEY MD Apr 02, 2019 08:21
[2019-04-02] MEDS: INSULIN ASPART [NOVOLOG] 3 ML PEN SC SCH ×4 (09:10→21:00)
[2019-04-02] MEDS: LINAGLIPTIN 5 MG TABLET PO SCH (09:18)
[2019-04-02] MEDS: RANITIDINE 150 MG TAB PO SCH ×2 (09:18→21:40)
[2019-04-02] MEDS: ASPIRIN 325 MG TAB PO SCH (09:18)
[2019-04-02] MEDS: AMLODIPINE 5 MG TAB PO SCH ×2 (09:19→21:26)
[2019-04-02] MEDS: HEPARIN 5,000 UNIT/1 ML VIAL SC SCH ×2 (09:23→21:29)
--- NOTE | 2019-04-02 11:06 | CONS ---
Consult Date/Type/Reason Admit Date/Time Mar 23, 2019 at 06:13 Initial Consult Date 03/28/19 Type of Consult Pulmonary Requesting Provider: JOSE PARRY MD Date/Time of Note DATE: 04/02/19 TIME: 11:04 Subjective Patient still requiring high flow O2 at 60% this morning. Mild exertional dyspnea but remains awake and alert. Chest x-ray shows ongoing central pulmonary edema. Objective Vital Signs Date Temp Pulse Resp B/P (MAP) Pulse Ox O2 O2 Flow FiO2 Time Delivery Rate 04/02/19 70 19 122/69 92 10:00 (86) 04/02/19 Vapotherm 08:00 04/02/19 97.8 08:00 04/02/19 50 07:58 Intake and Output 04/01/19 04/01/19 04/02/19 1515:00 23:00 07:00 IntakeIntake Total 120 ml 200 ml OutputOutput Total 2510 ml 25 ml 15 ml BalanceBalance -2510 ml 95 ml 185 ml Exam GENERAL: VITAL SIGNS: gentleman on high flow O2 NECK: Supple. No JVD or lymphadenopathy. CARDIAC EXAM: S1, S2. No added sounds or murmurs. CHEST: Diminished air entry bilaterally ABDOMEN: Soft, nontender. No guarding or rebound. EXTREMITIES: No cyanosis, clubbing or edema. NEUROLOGIC: Generalized weakness. No focal deficits Vent Setting Fraction of Inspired Oxygen pe: 50 Results/Medications Result Diagram: 04/02/19 0440 04/02/19 0440 Results 24 hrs Laboratory Tests Test 04/01/19 11:24 04/01/19 12:32 04/01/19 17:53 04/01/19 19:57 Bedside Glucose 147 163 202 243 H Test 04/01/19 21:40 04/02/19 01:45 04/02/19 01:46 04/02/19 04:40 Bedside Glucose 243 H 248 H 282 H White Blood Count 9.3 # Red Blood Count 3.20 L Hemoglobin 9.4 L Hematocrit 28.9 L Mean Corpuscular 90.3 Volume Mean Corpuscular 29.4 Hemoglobin Mean Corpuscular 32.5 Hemoglobin Concent Red Cell 14.2 Distribution Width Platelet Count 341 Mean Platelet Volume 10.1 Immature 1.400 H Granulocytes % Neutrophils % 89.5 H Lymphocytes % 4.6 L Monocytes % 4.4 Eosinophils % 0.0 Basophils % 0.1 Nucleated Red Blood 0.6 H Cells % Immature 0.130 H Granulocytes # Neutrophils # 8.3 H Lymphocytes # 0.4 L Monocytes # 0.4 Eosinophils # 0.0 Basophils # 0.0 Nucleated Red Blood 0.1 H Cells # Sodium Level 135 Potassium Level 4.9 Chloride Level 97 Carbon Dioxide Level 27 Anion Gap 11 Blood Urea Nitrogen 52 H Creatinine 4.21 #H Est Glomerular 14 L Filtrat Rate mL/min Glucose Level 229 H Calcium Level 8.4 Phosphorus Level 3.0 Test 04/02/19 09:05 Bedside Glucose 217 Medications Current Medications Albuterol (Proventil 0.083% (Neb)) 2.5 mg ICU RECOVERY PRN HHN .WHEEZING; Start 03/23/19 at 11:30 Aspirin (Aspirin) 325 mg DAILY PO Last administered on 04/02/19 09:18; Admin Dose 325 MG; Start 03/24/19 at 09:00 Atorvastatin Calcium (Lipitor) 40 mg QHS PO Last administered on 04/01/19at 21:38; Admin Dose 40 MG; Start 03/23/19 at 21:00 Carvedilol (Coreg) 12.5 mg BID PO Last administered on 04/02/19 09:19; Admin Dose 12.5 MG; Start 03/23/19 at 21:00 Linagliptin (Tradjenta) 5 mg DAILY PO Last administered on 04/02/19 09:18; Admin Dose 5 MG; Start 03/24/19 at 09:00 Ranitidine HCl (Zantac) 150 mg DAILY PO Last administered on 04/02/19 09:18; Admin Dose 150 MG; Start 03/24/19 at 09:00 Ondansetron HCl (Zofran Inj) 4 mg Q4H PRN IV NAUSEA AND/OR VOMITING Last administered on 03/28/19 20:28; Admin Dose 4 MG; Start 03/23/19 at 18:00 Hydromorphone HCl (Dilaudid) 2 mg Q4H PRN IV SEVERE PAIN LEVEL 7-10 Last administered on 03/31/19 17:00; Admin Dose 2 MG; Start 03/23/19 at 18:00 Miscellaneous Information 1 ea NOTE XX ; Start 03/23/19 at 18:30 Glucose (Glutose) 15 gm Q15M PRN PO DECREASED GLUCOSE; Start 03/23/19 at 18:30 Glucose (Glutose) 22.5 gm Q15M PRN PO DECREASED GLUCOSE; Start 03/23/19 at 18:30 Dextrose (D50w Syringe) 25 ml Q15M PRN IV DECREASED GLUCOSE; Start 03/23/19 at 18:30 Dextrose (D50w Syringe) 50 ml Q15M PRN IV DECREASED GLUCOSE; Start 03/23/19 at 18:30 Glucagon (Glucagen) 1 mg Q15M PRN IM DECREASED GLUCOSE; Start 03/23/19 at 18:30 Glucose (Glutose) 15 gm Q15M PRN BUCCAL DECREASED GLUCOSE; Start 03/23/19 at 18:30 Epoetin Joseph-epbx (Retacrit (Esrd)) 10,000 unit TuThSa@1700 SC Last administ ered on 03/31/19 17:54; Admin Dose 10,000 UNIT; Start 03/24/19 at 17:00 Acetaminophen/ Hydrocodone Bitart ([place] (5/325)) 1 tab Q6H PRN PO .MOD PAIN 4- 6 Last administered on 03/25/19 14:33; Admin Dose 1 TAB; Start 03/24/19 at 22:30 Albumin Human 100 ml @ 100 mls/hr WITH DIALYSIS PRN IV SBP <90 DURING DIALYSIS Last administered on 03/29/19 10:43; Admin Dose 100 MLS/HR; Start 03/27/19 at 12:00 Albuterol/ Ipratropium (Duoneb) 3 ml Q4HWA RESP THERAPY HHN Last administered on 04/02/19 07:57; Admin Dose 3 ML; Start 03/27/19 at 21:00 Heparin Sodium (Porcine) (Heparin (1000 Units/ml)) 3,000 unit AFTER DIALYSIS CATHETER Last administered on 04/01/19 10:14; Admin Dose 3,000 UNIT; Start 03/28/19 at 09:30 Magnesium Hydroxide (Milk Of Mag) 30 ml DAILY PRN PO CONSTIPATION Last administered on 03/28/19 20:48; Admin Dose 30 ML; Start 03/28/19 at 15:30 Heparin Sodium (Porcine) (Heparin (5000 Units/1ml)) 5,000 unit BID SC Last administered on 04/02/19 09:23; Admin Dose 5,000 UNIT; Start 03/29/19 at 21:00 Metoclopramide HCl (Reglan) 5 mg Q6 IV Last administered on 04/02/19at 05:31; Admin Dose 5 MG; Start 03/29/19 at 18:00 Meropenem/Sodium Chloride 50 ml @ 100 mls/hr Q24H IVPB Last administered on 04/01/19at 18:08; Admin Dose 100 MLS/HR; Start 03/29/19 at 18:00 Diagnostic Test (Pha) (Accu-Chek) 1 ea 02 XX Last administered on 04/02/19at 01:49; Admin Dose 1 EA; Start 04/01/19 at 02:00 Methylprednisolone Sodium Succinate (Solu-Medrol) 60 mg Q8 IV Last administered on 04/02/19 05:32; Admin Dose 60 MG; Start 03/31/19 at 10:30 Insulin Aspart (Novolog Insulin Pen) NOVOLOG *MODERATE* ALGORITHM WITH MEALS BEDTIME SC Last administered on 04/02/19at 09:10; Admin Dose 4 UNIT; Start 03/31/19 at 21:00 Metoclopramide HCl (Reglan) 5 mg Q6H PRN IV NAUSEA; Start 04/01/19 at 09:35 Amlodipine Besylate (Norvasc) 5 mg BID PO Last administered on 04/02/19at 09:19; Admin Dose 5 MG; Start 04/01/19 at 21:00 Insulin Glargine (Lantus) 8 units DAILY@2000 SC Last administered on 04/01/19at 21:48; Admin Dose 8 UNITS; Start 04/01/19 at 20:00 Chlorpromazine (Thorazine) 25 mg BID PRN PO hiccups; Start 04/01/19 at 20:00 Assessment/Plan Hospital Course (Demo Recall) IMPRESSION: 1. Acute hypoxemic respiratory failure requiring BiPAP support. 2. Acute on chronic renal failure, now requiring dialysis. 3. Peripheral vascular disease, status post revascularization. 4. Likely aspiration pneumonia as well. 5. Diabetes mellitus. 6. History of hypertension. 7. Benign prostatic hypertrophy. RECOMMENDATIONS: 1. Continue BiPAP for now. Trial of high flow O2 2. Aspiration precautions 3. Empiric trial of steroids possible cryptogenic organizing pneumonia. Differential includes eosinophilic pneumonia. Both of these should respond to steroids concerning that patient still has infiltrates and hypoxemia. Ultimately may require intubation and bronchoscopy and biopsy. 4. Hemodialysis per nephrology. Critical care time 40 minutes. Keep in ICU until FiO2 less than 50%. DMITRI PAIGE MD, [facility] Apr 02, 2019 11:06
--- NOTE | 2019-04-02 12:20 | PN ---
Date/Time of Note Date/Time of Note DATE: 04/02/19 TIME: 12:10 Assessment/Plan VTE Prophylaxis Risk score (from [facility])>0 risk: 10 SCD applied (from [facility]): No SCD contraindicated: bilateral LE trauma Pharmacological prophylaxis: heparin Lines/Catheters IV Catheter Type (from [facility]): [place] Urinary Cath still in place: No Reason Cath still needed: urinary retention Assessment/Plan Problems: (1) Type 2 diabetes mellitus with diabetic peripheral angiopathy with gangrene Status: Acute Comment: Patient was placed on methylprednisolone and his sugars have risen. And get a go ahead and use NPH insulin simultaneous with the methylprednisolone to bring his sugars under more cohesive control. He has had peripheral vascular bypass and this seems to be holding. At this time would be appropriate for consideration of transmetatarsal amputation to deal with the gangrenous elements Qualifiers: Diabetes mellitus adjunct faculty for medical terminology insulin use: with adjunct faculty for medical terminology use Qualified Codes: E11.52 - Type 2 diabetes mellitus with diabetic peripheral angiopathy with gangrene; Z79.4 - FPC (current) use of insulin (2) Acute respiratory failure with hypoxia Status: Acute Comment: He has improved with resolution/treatment of the volume overload as well as treatment of the pneumonia. I very much appreciate infectious disease input. (3) Nosocomial pneumonia Status: Acute Comment: Under treatment with the assistance of infectious disease (4) Benign prostatic hyperplasia with urinary obstruction Status: Chronic Comment: River catheter is been discontinued and were going to be monitoring for postvoid residual. Orders were put in by nephrology risk management consultant. As of this moment there are no postvoid residuals recorded in the electronic medical record (5) Acute on chronic renal failure Status: Acute Comment: Undoubtedly he is going to need long-term dialysis and a dialysis catheter will be placed by vascular Qualifiers: Acute renal failure type: unspecified Chronic kidney disease stage: stage 5, not on chronic dialysis Qualified Codes: N17.9 - Acute kidney failure, unspecified; N18.5 - Chronic kidney disease, stage 5 (6) Chronic kidney disease, stage IV (severe) Status: Chronic Comment: As above. (7) Vitamin D deficiency Status: Chronic Comment: Noted. On replacement (8) Anemia Status: Chronic Comment: He also has modest iron deficiency will go ahead and replete that gently Qualifiers: Anemia type: due to chronic kidney disease (9) Essential (primary) hypertension Status: Chronic Comment: Adequate control (10) Hiccups Status: Resolved Comment: Resolved Result Diagram: 04/02/19 0440 04/02/19 0440 Results 24hrs Laboratory Tests Test 04/01/19 12:32 04/01/19 17:53 04/01/19 19:57 04/01/19 21:40 Bedside Glucose 163 202 243 H 243 H Test 04/02/19 01:45 04/02/19 01:46 04/02/19 04:40 04/02/19 09:05 Bedside Glucose 248 H 282 H 217 White Blood Count 9.3 # Red Blood Count 3.20 L Hemoglobin 9.4 L Hematocrit 28.9 L Mean Corpuscular 90.3 Volume Mean Corpuscular 29.4 Hemoglobin Mean Corpuscular 32.5 Hemoglobin Concent Red Cell 14.2 Distribution Width Platelet Count 341 Mean Platelet Volume 10.1 Immature 1.400 H Granulocytes % Neutrophils % 89.5 H Lymphocytes % 4.6 L Monocytes % 4.4 Eosinophils % 0.0 Basophils % 0.1 Nucleated Red Blood 0.6 H Cells % Immature 0.130 H Granulocytes # Neutrophils # 8.3 H Lymphocytes # 0.4 L Monocytes # 0.4 Eosinophils # 0.0 Basophils # 0.0 Nucleated Red Blood 0.1 H Cells # Sodium Level 135 Potassium Level 4.9 Chloride Level 97 Carbon Dioxide Level 27 Anion Gap 11 Blood Urea Nitrogen 52 H Creatinine 4.21 #H Est Glomerular 14 L Filtrat Rate mL/min Glucose Level 229 H Calcium Level 8.4 Phosphorus Level 3.0 Test 04/02/19 11:17 Bedside Glucose 236 H Subjective 24 Hr Interval Summary Free Text/Dictation Patient reports that he is still having intermittent bouts of shortness of breath. He also wants to know if he will be back to normal Constitutional: no complaints ENT: no complaints Respiratory: shortness of breath (Intermittent shortness of breath but better this since he has had dialysis) Cardiovascular: no complaints Gastrointestinal: no complaints Exam/Review of Systems Exam Vitals Vital Signs Date Temp Pulse Resp B/P (MAP) Pulse Ox O2 O2 Flow FiO2 Time Delivery Rate 04/02/19 76 18 110/66 94 High Flow 12:00 (81) 04/02/19 97.8 08:00 04/02/19 50 07:58 Intake and Output 704/01/19 04/02/19 1515:00 23:00 07:00 IntakeIntake Total 120 ml 200 ml OutputOutput Total 2510 ml 25 ml 15 ml BalanceBalance -2510 ml 95 ml 185 ml Constitutional: alert, oriented Respiratory: crackles/rales Cardiovascular: regular rate and rhythm, nl pulses Gastrointestinal: soft, nl liver, spleen, non-tender Extremities: other (Right foot bandaged) Results Results 24hrs Laboratory Tests Test 04/01/19 12:32 04/01/19 17:53 04/01/19 19:57 04/01/19 21:40 Bedside Glucose 163 202 243 H 243 H Test 04/02/19 01:45 04/02/19 01:46 04/02/19 04:40 04/02/19 09:05 Bedside Glucose 248 H 282 H 217 White Blood Count 9.3 # Red Blood Count 3.20 L Hemoglobin 9.4 L Hematocrit 28.9 L Mean Corpuscular 90.3 Volume Mean Corpuscular 29.4 Hemoglobin Mean Corpuscular 32.5 Hemoglobin Concent Red Cell 14.2 Distribution Width Platelet Count 341 Mean Platelet Volume 10.1 Immature 1.400 H Granulocytes % Neutrophils % 89.5 H Lymphocytes % 4.6 L Monocytes % 4.4 Eosinophils % 0.0 Basophils % 0.1 Nucleated Red Blood 0.6 H Cells % Immature 0.130 H Granulocytes # Neutrophils # 8.3 H Lymphocytes # 0.4 L Monocytes # 0.4 Eosinophils # 0.0 Basophils # 0.0 Nucleated Red Blood 0.1 H Cells # Sodium Level 135 Potassium Level 4.9 Chloride Level 97 Carbon Dioxide Level 27 Anion Gap 11 Blood Urea Nitrogen 52 H Creatinine 4.21 #H Est Glomerular 14 L Filtrat Rate mL/min Glucose Level 229 H Calcium Level 8.4 Phosphorus Level 3.0 Test 04/02/19 11:17 Bedside Glucose 236 H Medications Medication Current Medications Albuterol (Proventil 0.083% (Neb)) 2.5 mg ICU RECOVERY PRN HHN .WHEEZING; Start 03/23/19 at 11:30 Aspirin (Aspirin) 325 mg DAILY PO Last administered on 04/02/19at 09:18; Admin Dose 325 MG; Start 03/24/19 at 09:00 Atorvastatin Calcium (Lipitor) 40 mg QHS PO Last administered on 04/01/19at 21:38; Admin Dose 40 MG; Start 03/23/19 at 21:00 Carvedilol (Coreg) 12.5 mg BID PO Last administered on 04/02/19 09:19; Admin Dose 12.5 MG; Start 03/23/19 at 21:00 Linagliptin (Tradjenta) 5 mg DAILY PO Last administered on 04/02/19 09:18; Admin Dose 5 MG; Start 03/24/19 at 09:00 Ranitidine HCl (Zantac) 150 mg DAILY PO Last administered on 04/02/19 09:18; Admin Dose 150 MG; Start 03/24/19 at 09:00 Ondansetron HCl (Zofran Inj) 4 mg Q4H PRN IV NAUSEA AND/OR VOMITING Last administered on 03/28/19 20:28; Admin Dose 4 MG; Start 03/23/19 at 18:00 Hydromorphone HCl (Dilaudid) 2 mg Q4H PRN IV SEVERE PAIN LEVEL 7-10 Last administered on 03/31/19 17:00; Admin Dose 2 MG; Start 03/23/19 at 18:00 Miscellaneous Information 1 ea NOTE XX ; Start 03/23/19 at 18:30 Glucose (Glutose) 15 gm Q15M PRN PO DECREASED GLUCOSE; Start 03/23/19 at 18:30 Glucose (Glutose) 22.5 gm Q15M PRN PO DECREASED GLUCOSE; Start 03/23/19 at 18:30 Dextrose (D50w Syringe) 25 ml Q15M PRN IV DECREASED GLUCOSE; Start 03/23/19 at 18:30 Dextrose (D50w Syringe) 50 ml Q15M PRN IV DECREASED GLUCOSE; Start 03/23/19 at 18:30 Glucagon (Glucagen) 1 mg Q15M PRN IM DECREASED GLUCOSE; Start 03/23/19 at 18:30 Glucose (Glutose) 15 gm Q15M PRN BUCCAL DECREASED GLUCOSE; Start 03/23/19 at 18:30 Epoetin Joseph-epbx (Retacrit (Esrd)) 10,000 unit TuThSa@1700 SC Last administered on 03/31/19at 17:54; Admin Dose 10,000 UNIT; Start 03/24/19 at 17:00 Acetaminophen/ Hydrocodone Bitart ([place] (5/325)) 1 tab Q6H PRN PO .MOD PAIN 4- 6 Last administered on 03/25/19 14:33; Admin Dose 1 TAB; Start 03/24/19 at 22:30 Albumin Human 100 ml @ 100 mls/hr WITH DIALYSIS PRN IV SBP <90 DURING DIALYSIS Last administered on 03/29/19 10:43; Admin Dose 100 MLS/HR; Start 03/27/19 at 12:00 Albuterol/ Ipratropium (Duoneb) 3 ml Q4HWA RESP THERAPY HHN Last administered on 04/02/19 07:57; Admin Dose 3 ML; Start 03/27/19 at 21:00 Heparin Sodium (Porcine) (Heparin (1000 Units/ml)) 3,000 unit AFTER DIALYSIS CATHETER Last administered on 04/01/19 10:14; Admin Dose 3,000 UNIT; Start 03/28/19 at 09:30 Magnesium Hydroxide (Milk Of Mag) 30 ml DAILY PRN PO CONSTIPATION Last administered on 03/28/19 20:48; Admin Dose 30 ML; Start 03/28/19 at 15:30 Heparin Sodium (Porcine) (Heparin (5000 Units/1ml)) 5,000 unit BID SC Last administered on 04/02/19 09:23; Admin Dose 5,000 UNIT; Start 03/29/19 at 21:00 Metoclopramide HCl (Reglan) 5 mg Q6 IV Last administered on 04/02/19 11:21; Admin Dose 5 MG; Start 03/29/19 at 18:00 Meropenem/Sodium Chloride 50 ml @ 100 mls/hr Q24H IVPB Last administered on 04/01/19 18:08; Admin Dose 100 MLS/HR; Start 03/29/19 at 18:00 Diagnostic Test (Pha) (Accu-Chek) 1 ea 02 XX Last administered on 04/02/19 01:49; Admin Dose 1 EA; Start 04/01/19 at 02:00 Methylprednisolone Sodium Succinate (Solu-Medrol) 60 mg Q8 IV Last administered on 04/02/19 05:32; Admin Dose 60 MG; Start 03/31/19 at 10:30 Insulin Aspart (Novolog Insulin Pen) NOVOLOG *MODERATE* ALGORITHM WITH MEALS BEDTIME SC Last administered on 04/02/19 11:20; Admin Dose 6 UNIT; Start 03/31/19 at 21:00 Metoclopramide HCl (Reglan) 5 mg Q6H PRN IV NAUSEA; Start 04/01/19 at 09:35 Amlodipine Besylate (Norvasc) 5 mg BID PO Last administered on 04/02/19at 09:19; Admin Dose 5 MG; Start 04/01/19 at 21:00 Insulin Glargine (Lantus) 8 units DAILY@2000 SC Last administered on 04/01/19at 21:48; Admin Dose 8 UNITS; Start 04/01/19 at 20:00 Chlorpromazine (Thorazine) 25 mg BID PRN PO hiccups; Start 04/01/19 at 20:00 Insulin Human NPH (Humulin N) 8 unit Q8 SC ; Start 04/02/19 at 14:00; Status KYLEE RODRIGUEZ MD Apr 02, 2019 12:20
[2019-04-02] MEDS: FERROUS FUMARATE (SR) TAB PO SCH (14:17)
[2019-04-02] MEDS: NPH, HUMAN INSULIN ISOPHANE 3ML VIAL SC SCH ×2 (14:21→21:43)
[2019-04-02] MEDS: MEROPENEM 500MG/50 ML (PMX) 50 ML IVPB SCH (16:36)
[2019-04-02] MEDS: EPOETIN ALFA-EPBX (ESRD) 10,000 UNIT/ML VIAL SC SCH (16:38)
--- NOTE | 2019-04-02 16:59 | CONS ---
Assessment/Plan Assessment/Plan Hospital Course (Demo Recall) Acute respiratory failure Acute kidney injury on hemodialysis Peripheral arterial disease status post bypass Hypertension Preserved left ventricular ejection fraction echocardiogram January 2019 Fluid management via hemodialysis as per nephrology Currently on high flow oxygen and feeling less short of breath Continue statin and aspirin therapy if able to take p.o., if no contraindication, change asa to 81mg daily Titrate blood pressure meds as needed Consultation Date/Type/Reason Admit Date/Time Mar 23, 2019 at 06:13 Initial Consult Date 03/28/19 Type of Consult Cardiology Requesting Provider: MICHELE PARRY MD Date/Time of Note DATE: 04/02/19 TIME: 16:57 24 HR Interval Summary Free Text/Dictation Shortness of breath is better, no palpitations or chest pain Exam/Review of Systems Vital Signs Vitals Vital Signs Date Temp Pulse Resp B/P (MAP) Pulse Ox O2 O2 Flow FiO2 Time Delivery Rate 04/02/19 89 40 16:26 04/02/19 97.6 67 18 112/66 High Flow 16:00 (81) Intake and Output 04/01/19 04/01/19 04/02/19 1515:00 23:00 07:00 IntakeIntake Total 120 ml 200 ml OutputOutput Total 2510 ml 25 ml 15 ml BalanceBalance -2510 ml 95 ml 185 ml Exam Constitutional: alert, oriented Head: normocephalic Respiratory: other (course bs, no wheeze) Cardiovascular: regular rate and rhythm (s1s2) Gastrointestinal: soft, non-tender, bowel sounds Extremities: edema Labs Result Diagram: 04/02/19 0440 04/02/19 0440 Results 24hrs Laboratory Tests Test 04/01/19 17:53 04/01/19 19:57 04/01/19 21:40 04/02/19 01:45 Bedside Glucose 202 243 H 243 H 248 H Test 04/02/19 01:46 04/02/19 04:40 04/02/19 09:05 04/02/19 11:17 Bedside Glucose 282 H 217 236 H White Blood Count 9.3 # Red Blood Count 3.20 L Hemoglobin 9.4 L Hematocrit 28.9 L Mean Corpuscular 90.3 Volume Mean Corpuscular 29.4 Hemoglobin Mean Corpuscular 32.5 Hemoglobin Concent Red Cell 14.2 Distribution Width Platelet Count 341 Mean Platelet Volume 10.1 Immature 1.400 H Granulocytes % Neutrophils % 89.5 H Lymphocytes % 4.6 L Monocytes % 4.4 Eosinophils % 0.0 Basophils % 0.1 Nucleated Red Blood 0.6 H Cells % Immature 0.130 H Granulocytes # Neutrophils # 8.3 H Lymphocytes # 0.4 L Monocytes # 0.4 Eosinophils # 0.0 Basophils # 0.0 Nucleated Red Blood 0.1 H Cells # Sodium Level 135 Potassium Level 4.9 Chloride Level 97 Carbon Dioxide Level 27 Anion Gap 11 Blood Urea Nitrogen 52 H Creatinine 4.21 #H Est Glomerular 14 L Filtrat Rate mL/min Glucose Level 229 H Calcium Level 8.4 Phosphorus Level 3.0 Test 04/02/19 14:16 04/02/19 16:43 Bedside Glucose 182 181 Medications Medications Current Medications Albuterol (Proventil 0.083% (Neb)) 2.5 mg ICU RECOVERY PRN HHN .WHEEZING; Start 03/23/19 at 11:30 Aspirin (Aspirin) 325 mg DAILY PO Last administered on 04/02/19at 09:18; Admin Dose 325 MG; Start 03/24/19 at 09:00 Atorvastatin Calcium (Lipitor) 40 mg QHS PO Last administered on 04/01/19at 21:38; Admin Dose 40 MG; Start 03/23/19 at 21:00 Carvedilol (Coreg) 12.5 mg BID PO Last administered on 04/02/19at 09:19; Admin Dose 12.5 MG; Start 03/23/19 at 21:00 Linagliptin (Tradjenta) 5 mg DAILY PO Last administered on 04/02/19at 09:18; Admin Dose 5 MG; Start 03/24/19 at 09:00 Ondansetron HCl (Zofran Inj) 4 mg Q4H PRN IV NAUSEA AND/OR VOMITING Last administered on 03/28/19at 20:28; Admin Dose 4 MG; Start 03/23/19 at 18:00 Hydromorphone HCl (Dilaudid) 2 mg Q4H PRN IV SEVERE PAIN LEVEL 7-10 Last administered on 03/31/19 17:00; Admin Dose 2 MG; Start 03/23/19 at 18:00 Miscellaneous Information 1 ea NOTE XX ; Start 03/23/19 at 18:30 Glucose (Glutose) 15 gm Q15M PRN PO DECREASED GLUCOSE; Start 03/23/19 at 18:30 Glucose (Glutose) 22.5 gm Q15M PRN PO DECREASED GLUCOSE; Start 03/23/19 at 18:30 Dextrose (D50w Syringe) 25 ml Q15M PRN IV DECREASED GLUCOSE; Start 03/23/19 at 18:30 Dextrose (D50w Syringe) 50 ml Q15M PRN IV DECREASED GLUCOSE; Start 03/23/19 at 18:30 Glucagon (Glucagen) 1 mg Q15M PRN IM DECREASED GLUCOSE; Start 03/23/19 at 18:30 Glucose (Glutose) 15 gm Q15M PRN BUCCAL DECREASED GLUCOSE; Start 03/23/19 at 18:30 Epoetin Joseph-epbx (Retacrit (Esrd)) 10,000 unit TuThSa@1700 SC Last administered on 04/02/19 16:38; Admin Dose 10,000 UNIT; Start 03/24/19 at 17:00 Acetaminophen/ Hydrocodone Bitart ([place] (5/325)) 1 tab Q6H PRN PO .MOD PAIN 4- 6 Last administered on 03/25/19 14:33; Admin Dose 1 TAB; Start 03/24/19 at 22:30 Albumin Human 100 ml @ 100 mls/hr WITH DIALYSIS PRN IV SBP <90 DURING DIALYSIS Last administered on 03/29/19 10:43; Admin Dose 100 MLS/HR; Start 03/27/19 at 12:00 Albuterol/ Ipratropium (Duoneb) 3 ml Q4HWA RESP THERAPY HHN Last administered on 04/02/19 16:22; Admin Dose 3 ML; Start 03/27/19 at 21:00 Heparin Sodium (Porcine) (Heparin (1000 Units/ml)) 3,000 unit AFTER DIALYSIS CATHETER Last administered on 04/01/19 10:14; Admin Dose 3,000 UNIT; Start 03/28/19 at 09:30 Magnesium Hydroxide (Milk Of Mag) 30 ml DAILY PRN PO CONSTIPATION Last administered on 03/28/19 20:48; Admin Dose 30 ML; Start 03/28/19 at 15:30 Heparin Sodium (Porcine) (Heparin (5000 Units/1ml)) 5,000 unit BID SC Last administered on 04/02/19 09:23; Admin Dose 5,000 UNIT; Start 03/29/19 at 21:00 Metoclopramide HCl (Reglan) 5 mg Q6 IV Last administered on 04/02/19 16:37; Admin Dose 5 MG; Start 03/29/19 at 18:00 Meropenem/Sodium Chloride 50 ml @ 100 mls/hr Q24H IVPB Last administered on 04/02/19 16:36; Admin Dose 100 MLS/HR; Start 03/29/19 at 18:00 Diagnostic Test (Pha) (Accu-Chek) 1 ea 02 XX Last administered on 04/02/19 01:49; Admin Dose 1 EA; Start 04/01/19 at 02:00 Methylprednisolone Sodium Succinate (Solu-Medrol) 60 mg Q8 IV Last administered on 04/02/19 14:17; Admin Dose 60 MG; Start 03/31/19 at 10:30 Insulin Aspart (Novolog Insulin Pen) NOVOLOG *MODERATE* ALGORITHM WITH MEALS BEDTIME SC Last administered on 04/02/19at 16:46; Admin Dose 4 UNIT; Start 03/31/19 at 21:00 Metoclopramide HCl (Reglan) 5 mg Q6H PRN IV NAUSEA; Start 04/01/19 at 09:35 Amlodipine Besylate (Norvasc) 5 mg BID PO Last administered on 04/02/19 09:19; Admin Dose 5 MG; Start 04/01/19 at 21:00 Insulin Glargine (Lantus) 8 units DAILY@2000 SC Last administered on 04/01/19at 21:48; Admin Dose 8 UNITS; Start 04/01/19 at 20:00 Chlorpromazine (Thorazine) 25 mg BID PRN PO hiccups; Start 04/01/19 at 20:00 Insulin Human NPH (Humulin N) 8 unit Q8 SC Last administered on 04/02/19at 14:21; Admin Dose 8 UNIT; Start 04/02/19 at 14:00 Ranitidine HCl (Zantac) 300 mg QHS PO ; Start 04/02/19 at 21:00 Docusate Sodium/ Ferrous Fumarate (Angela-[employer]els) 1 tab DAILY PO Last administered on 04/02/19at 14:17; Admin Dose 1 TAB; Start 04/02/19 at 12:30; Stop 05/02/19 at 12:29 Michele Richard DO Apr 02, 2019 16:59
--- NOTE | 2019-04-02 19:38 | CONS ---
Assessment/Plan Assessment/Plan Hospital Course (Demo Recall) assessment/impression - acute hypoxic resp failure, probably multifactorial: first, fluid overload. Pt's oxygenation improved after undergoing dialysis and so fluid overload is a significant factor. Second, I suspect aspiration pneumonia/pneumonitis. Pt reportedly was having spells of congested cough upon arrival at ICU. Pt has h/o "excessive saliva production" since 08/2018 according to Pt's daughter in law. This increases a risk of aspiration pneumonia and/or pneumonitis. 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, Pt is scheduled to get R TMA once his acute illness resolves - s/p R SFA to posterior tibial bypass using in situ greater saphenous vein from R thigh and calf on 03/23/2019 - former smoker - constipation recommendations: - continue renally dosed meropenem (03/29/19-); Pt completed pip/tazo (03/25/19- 03/28/19) and IV vancomycin (03/25/19-03/30/19) - I may continue meropenem until Pt gets amputation of [id number] toes - Pt was started on a trial of steroid by pulm service, will monitor WBC level management d/w Pt's VIC Rodney the critical care time I took to care for this Pt today was from 1830 to 1900 Consultation Date/Type/Reason Admit Date/Time Mar 23, 2019 at 06:13 Initial Consult Date 03/28/19 Type of Consult ID Requesting Provider: JOSE PARRY MD Date/Time of Note DATE: 04/02/19 TIME: 19:34 24 HR Interval Summary Free Text/Dictation Pt was soundly asleep Exam/Review of Systems Exam Vitals Vital Signs Date Temp Pulse Resp B/P (MAP) Pulse Ox O2 O2 Flow FiO2 Time Delivery Rate 04/02/19 71 19 110/61 88 18:00 (77) 04/02/19 40 16:26 04/02/19 97.6 High Flow 16:00 Intake and Output 04/01/19 04/01/19 04/02/19 1515:00 23:00 07:00 IntakeIntake Total 120 ml 200 ml OutputOutput Total 2510 ml 25 ml 15 ml BalanceBalance -2510 ml 95 ml 185 ml Constitutional: other (Pt was soundly asleep) Psych: other (asleep) Head: normocephalic, atraumatic Eyes: nl lids ENMT: nl external ears & nose, nl nasal mucosa & septum Neck: other (not swollen) Respiratory: diminished breath sounds Cardiovascular: regular rate and rhythm, nl pulses Gastrointestinal: soft, non-tender; No distended Musculoskeletal: other (s/p amputation of R 5t toe, gangrene of [id number] toes) Extremities: edema Neurological: other (soundly asleep) Results Result Diagram: 04/02/190 04/02/19 0440 Results 24hrs Laboratory Tests Test 04/01/19 19:57 04/01/19 21:40 04/02/19 01:45 04/02/19 01:46 Bedside Glucose 243 H 243 H 248 H 282 H Test 04/02/19 04:40 04/02/19 09:05 04/02/19 11:17 04/02/19 14:16 White Blood Count 9.3 # Red Blood Count 3.20 L Hemoglobin 9.4 L Hematocrit 28.9 L Mean Corpuscular 90.3 Volume Mean Corpuscular 29.4 Hemoglobin Mean Corpuscular 32.5 Hemoglobin Concent Red Cell 14.2 Distribution Width Platelet Count 341 Mean Platelet Volume 10.1 Immature 1.400 H Granulocytes % Neutrophils % 89.5 H Lymphocytes % 4.6 L Monocytes % 4.4 Eosinophils % 0.0 Basophils % 0.1 Nucleated Red Blood 0.6 H Cells % Immature 0.130 H Granulocytes # Neutrophils # 8.3 H Lymphocytes # 0.4 L Monocytes # 0.4 Eosinophils # 0.0 Basophils # 0.0 Nucleated Red Blood 0.1 H Cells # Sodium Level 135 Potassium Level 4.9 Chloride Level 97 Carbon Dioxide Level 27 Anion Gap 11 Blood Urea Nitrogen 52 H Creatinine 4.21 #H Est Glomerular 14 L Filtrat Rate mL/min Glucose Level 229 H Calcium Level 8.4 Phosphorus Level 3.0 Bedside Glucose 217 236 H 182 Test 04/02/19 16:43 Bedside Glucose 181 Medications Medication Current Medications Albuterol (Proventil 0.083% (Neb)) 2.5 mg ICU RECOVERY PRN HHN .WHEEZING; Start 03/23/19 at 11:30 Aspirin (Aspirin) 325 mg DAILY PO Last administered on 04/02/19at 09:18; Admin Dose 325 MG; Start 03/24/19 at 09:00 Atorvastatin Calcium (Lipitor) 40 mg QHS PO Last administered on 04/01/19at 21:38; Admin Dose 40 MG; Start 03/23/19 at 21:00 Carvedilol (Coreg) 12.5 mg BID PO Last administered on 04/02/19at 09:19; Admin Dose 12.5 MG; Start 03/23/19 at 21:00 Linagliptin (Tradjenta) 5 mg DAILY PO Last administered on 04/02/19at 09:18; Admin Dose 5 MG; Start 03/24/19 at 09:00 Ondansetron HCl (Zofran Inj) 4 mg Q4H PRN IV NAUSEA AND/OR VOMITING Last administered on 03/28/19at 20:28; Admin Dose 4 MG; Start 03/23/19 at 18:00 Hydromorphone HCl (Dilaudid) 2 mg Q4H PRN IV SEVERE PAIN LEVEL 7-10 Last administered on 03/31/19at 17:00; Admin Dose 2 MG; Start 03/23/19 at 18:00 Miscellaneous Information 1 ea NOTE XX ; Start 03/23/19 at 18:30 Glucose (Glutose) 15 gm Q15M PRN PO DECREASED GLUCOSE; Start 03/23/19 at 18:30 Glucose (Glutose) 22.5 gm Q15M PRN PO DECREASED GLUCOSE; Start 03/23/19 at 18:30 Dextrose (D50w Syringe) 25 ml Q15M PRN IV DECREASED GLUCOSE; Start 03/23/19 at 18:30 Dextrose (D50w Syringe) 50 ml Q15M PRN IV DECREASED GLUCOSE; Start 03/23/19 at 18:30 Glucagon (Glucagen) 1 mg Q15M PRN IM DECREASED GLUCOSE; Start 03/23/19 at 18:30 Glucose (Glutose) 15 gm Q15M PRN BUCCAL DECREASED GLUCOSE; Start 03/23/19 at 18:30 Epoetin Joseph-epbx (Retacrit (Esrd)) 10,000 unit TuThSa@1700 SC Last administered on 04/02/19 16:38; Admin Dose 10,000 UNIT; Start 03/24/19 at 17:00 Acetaminophen/ Hydrocodone Bitart ([place] (5/325)) 1 tab Q6H PRN PO .MOD PAIN 4- 6 Last administered on 03/25/19 14:33; Admin Dose 1 TAB; Start 03/24/19 at 22:30 Albumin Human 100 ml @ 100 mls/hr WITH DIALYSIS PRN IV SBP <90 DURING DIALYSIS Last administered on 03/29/19 10:43; Admin Dose 100 MLS/HR; Start 03/27/19 at 12:00 Albuterol/ Ipratropium (Duoneb) 3 ml Q4HWA RESP THERAPY HHN Last administered on 04/02/19 16:22; Admin Dose 3 ML; Start 03/27/19 at 21:00 Heparin Sodium (Porcine) (Heparin (1000 Units/ml)) 3,000 unit AFTER DIALYSIS CATHETER Last administered on 04/01/19 10:14; Admin Dose 3,000 UNIT; Start 03/28/19 at 09:30 Magnesium Hydroxide (Milk Of Mag) 30 ml DAILY PRN PO CONSTIPATION Last administered on 03/28/19 20:48; Admin Dose 30 ML; Start 03/28/19 at 15:30 Heparin Sodium (Porcine) (Heparin (5000 Units/1ml)) 5,000 unit BID SC Last administered on 04/02/19 09:23; Admin Dose 5,000 UNIT; Start 03/29/19 at 21:00 Metoclopramide HCl (Reglan) 5 mg Q6 IV Last administered on 04/02/19 16:37; Admin Dose 5 MG; Start 03/29/19 at 18:00 Meropenem/Sodium Chloride 50 ml @ 100 mls/hr Q24H IVPB Last administered on 04/02/19 16:36; Admin Dose 100 MLS/HR; Start 03/29/19 at 18:00 Diagnostic Test (Pha) (Accu-Chek) 1 ea 02 XX Last administered on 04/02/19 01:49; Admin Dose 1 EA; Start 04/01/19 at 02:00 Methylprednisolone Sodium Succinate (Solu-Medrol) 60 mg Q8 IV Last administered on 04/02/19 14:17; Admin Dose 60 MG; Start 03/31/19 at 10:30 Insulin Aspart (Novolog Insulin Pen) NOVOLOG *MODERATE* ALGORITHM WITH MEALS BEDTIME SC Last administered on 04/02/19 16:46; Admin Dose 4 UNIT; Start 03/31/19 at 21:00 Metoclopramide HCl (Reglan) 5 mg Q6H PRN IV NAUSEA; Start 04/01/19 at 09:35 Amlodipine Besylate (Norvasc) 5 mg BID PO Last administered on 04/02/19 09:19; Admin Dose 5 MG; Start 04/01/19 at 21:00 Insulin Glargine (Lantus) 8 units DAILY@2000 SC Last administered on 04/01/19at 21:48; Admin Dose 8 UNITS; Start 04/01/19 at 20:00 Chlorpromazine (Thorazine) 25 mg BID PRN PO hiccups; Start 04/01/19 at 20:00 Insulin Human NPH (Humulin N) 8 unit Q8 SC Last administered on 04/02/19at 14:21; Admin Dose 8 UNIT; Start 04/02/19 at 14:00 Ranitidine HCl (Zantac) 300 mg QHS PO ; Start 04/02/19 at 21:00 Docusate Sodium/ Ferrous Fumarate (Angela-Sequels) 1 tab DAILY PO Last administered on 04/02/19 14:17; Admin Dose 1 TAB; Start 04/02/19 at 12:30; Stop 05/02/19 at 12:29 LUDMILA ANTOINE M.D. Apr 02, 2019 19:37
[2019-04-02] MEDS: ATORVASTATIN 40 MG TAB PO SCH (21:25)
[2019-04-02] MEDS: HYDROCODONE/APAP (5/325) TAB PO PRN (21:25)
[2019-04-02] MEDS: INSULIN GLARGINE [LANTus] (100 UNITS/ML) SYG SC SCH (21:44)
[2019-04-03] VITALS (43 sets, daily range): BP systolic 94–151; BP diastolic 53–92; PULSE 58–116; RESP 11–28
[2019-04-03] MEDS: METOCLOPRAMIDE 10 MG INJ IV SCH ×4 (00:03→17:11)
[2019-04-03] MEDS: ACCU-CHEK XX SCH (02:00)
[2019-04-03] MEDS: METHYLPREDNISOLONE 125 MG INJ IV SCH ×3 (06:15→22:00)
[2019-04-03] MEDS: NPH, HUMAN INSULIN ISOPHANE 3ML VIAL SC SCH ×3 (06:27→22:00)
[2019-04-03] MEDS: INSULIN ASPART [NOVOLOG] 3 ML PEN SC SCH ×4 (07:35→21:00)
[2019-04-03] MEDS: ALBUTEROL/IPRATROPIUM (NEB) 3 ML AMP HHN SCH ×4 (08:09→20:07)
--- NOTE | 2019-04-03 08:20 | CONS ---
Assessment/Plan Assessment/Plan Assessment/Plan 1. CKD/ARF, to have HD today and permanent dialysis catheter to be placed. 2. Pneumonia clinically improving, cxr ordered 3. DM, excellent control 4. BP is controlled 5. To dc short today 6. Next HD Saturday Consultation Date/Type/Reason Admit Date/Time Mar 23, 2019 at 06:13 Type of Consult Nephrology Date/Time of Note DATE: 04/03/19 TIME: 08:18 Respiratory: cough (mild); No shortness of breath Cardiovascular: No chest pain Gastrointestinal: no complaints Genitourinary: other (short in place) Exam/Review of Systems Vital Signs Vitals Vital Signs Date Temp Pulse Resp B/P (MAP) Pulse Ox O2 O2 Flow FiO2 Time Delivery Rate 04/03/19 65 14 119/68 97 07:00 (85) 04/03/19 BIPAP 06:00 04/03/19 60 05:53 04/03/19 97.6 04:00 04/02/19 25.0 20:00 Intake and Output 04/02/19 04/02/19 04/03/19 1515:00 23:00 07:00 IntakeIntake Total 600 ml 290 ml 120 ml OutputOutput Total 100 ml 0 ml BalanceBalance 600 ml 190 ml 120 ml Exam Neck: jvd (hjr is present) Cardiovascular: regular rate and rhythm; No S3 Gastrointestinal: soft Extremities: edema (trace sacral edema) Labs Result Diagram: 04/03/19 0439 04/03/19 0400 Results 24hrs Laboratory Tests Test 04/02/19 09:05 04/02/19 11:17 04/02/19 14:16 04/02/19 16:43 Bedside Glucose 217 236 H 182 181 Test 04/02/19 21:06 04/03/19 04:00 04/03/19 04:39 04/03/19 06:14 Bedside Glucose 152 132 Sodium Level 133 L Potassium Level 5.3 H Chloride Level 96 L Carbon Dioxide Level 26 Anion Gap 11 Blood Urea Nitrogen 80 H Creatinine 5.59 H Est Glomerular 10 L Filtrat Rate mL/min Glucose Level 132 # Calcium Level 8.5 White Blood Count 10.4 Red Blood Count 3.24 L Hemoglobin 9.5 L Hematocrit 29.8 L Mean Corpuscular 92.0 Volume Mean Corpuscular 29.3 Hemoglobin Mean Corpuscular 31.9 L Hemoglobin Concent Red Cell 14.4 Distribution Width Platelet Count 327 Mean Platelet Volume 10.4 Immature 1.200 H Granulocytes % Neutrophils % 90.5 H Lymphocytes % 4.9 L Monocytes % 3.4 Eosinophils % 0.0 Basophils % 0.0 Nucleated Red Blood 0.6 H Cells % Immature 0.120 H Granulocytes # Neutrophils # 9.4 H Lymphocytes # 0.5 L Monocytes # 0.4 Eosinophils # 0.0 Basophils # 0.0 Nucleated Red Blood 0.1 H Cells # Medications Medications Current Medications Albuterol (Proventil 0.083% (Neb)) 2.5 mg ICU RECOVERY PRN HHN .WHEEZING; Start 03/23/19 at 11:30 Aspirin (Aspirin) 325 mg DAILY PO Last administered on 04/02/19at 09:18; Admin Dose 325 MG; Start 03/24/19 at 09:00 Atorvastatin Calcium (Lipitor) 40 mg QHS PO Last administered on 04/02/19at 21:25; Admin Dose 40 MG; Start 03/23/19 at 21:00 Carvedilol (Coreg) 12.5 mg BID PO Last administered on 04/02/19 21:25; Admin Dose 12.5 MG; Start 03/23/19 at 21:00 Linagliptin (Tradjenta) 5 mg DAILY PO Last administered on 04/02/19at 09:18; Admin Dose 5 MG; Start 03/24/19 at 09:00 Ondansetron HCl (Zofran Inj) 4 mg Q4H PRN IV NAUSEA AND/OR VOMITING Last administered on 03/28/19at 20:28; Admin Dose 4 MG; Start 03/23/19 at 18:00 Hydromorphone HCl (Dilaudid) 2 mg Q4H PRN IV SEVERE PAIN LEVEL 7-10 Last administered on 03/31/19at 17:00; Admin Dose 2 MG; Start 03/23/19 at 18:00 Miscellaneous Information 1 ea NOTE XX ; Start 03/23/19 at 18:30 Glucose (Glutose) 15 gm Q15M PRN PO DECREASED GLUCOSE; Start 03/23/19 at 18:30 Glucose (Glutose) 22.5 gm Q15M PRN PO DECREASED GLUCOSE; Start 03/23/19 at 18:30 Dextrose (D50w Syringe) 25 ml Q15M PRN IV DECREASED GLUCOSE; Start 03/23/19 at 18:30 Dextrose (D50w Syringe) 50 ml Q15M PRN IV DECREASED GLUCOSE; Start 03/23/19 at 18:30 Glucagon (Glucagen) 1 mg Q15M PRN IM DECREASED GLUCOSE; Start 03/23/19 at 18:30 Glucose (Glutose) 15 gm Q15M PRN BUCCAL DECREASED GLUCOSE; Start 03/23/19 at 18:30 Epoetin Joseph-epbx (Retacrit (Esrd)) 10,000 unit TuThSa@1700 SC Last administered on 04/02/19 16:38; Admin Dose 10,000 UNIT; Start 03/24/19 at 17:00 Acetaminophen/ Hydrocodone Bitart ([place] (5/325)) 1 tab Q6H PRN PO .MOD PAIN 4- 6 Last administered on 04/02/19 21:25; Admin Dose 1 TAB; Start 03/24/19 at 22:30 Albumin Human 100 ml @ 100 mls/hr WITH DIALYSIS PRN IV SBP <90 DURING DIALYSIS Last administered on 03/29/19 10:43; Admin Dose 100 MLS/HR; Start 03/27/19 at 12:00 Albuterol/ Ipratropium (Duoneb) 3 ml Q4HWA RESP THERAPY HHN Last administered on 04/03/19 08:09; Admin Dose 3 ML; Start 03/27/19 at 21:00 Heparin Sodium (Porcine) (Heparin (1000 Units/ml)) 3,000 unit AFTER DIALYSIS CATHETER Last administered on 04/01/19 10:14; Admin Dose 3,000 UNIT; Start 03/28/19 at 09:30 Magnesium Hydroxide (Milk Of Mag) 30 ml DAILY PRN PO CONSTIPATION Last admi nistered on 03/28/19 20:48; Admin Dose 30 ML; Start 03/28/19 at 15:30 Heparin Sodium (Porcine) (Heparin (5000 Units/1ml)) 5,000 unit BID SC Last administered on 04/02/19 21:29; Admin Dose 5,000 UNIT; Start 03/29/19 at 21:00 Metoclopramide HCl (Reglan) 5 mg Q6 IV Last administered on 04/03/19 06:15; Admin Dose 5 MG; Start 03/29/19 at 18:00 Meropenem/Sodium Chloride 50 ml @ 100 mls/hr Q24H IVPB Last administered on 04/02/19 16:36; Admin Dose 100 MLS/HR; Start 03/29/19 at 18:00 Diagnostic Test (Pha) (Accu-Chek) 1 ea 02 XX Last administered on 04/02/19 01:49; Admin Dose 1 EA; Start 04/01/19 at 02:00 Methylprednisolone Sodium Succinate (Solu-Medrol) 60 mg Q8 IV Last administered on 04/03/19 06:15; Admin Dose 60 MG; Start 03/31/19 at 10:30 Insulin Aspart (Novolog Insulin Pen) NOVOLOG *MODERATE* ALGORITHM WITH MEALS BEDTIME SC Last administered on 04/02/19 16:46; Admin Dose 4 UNIT; Start 03/31/19 at 21:00 Metoclopramide HCl (Reglan) 5 mg Q6H PRN IV NAUSEA; Start 04/01/19 at 09:35 Amlodipine Besylate (Norvasc) 5 mg BID PO Last administered on 04/02/19 21:26; Admin Dose 5 MG; Start 04/01/19 at 21:00 Insulin Glargine (Lantus) 8 units DAILY@2000 SC Last administered on 04/02/19 21:44; Admin Dose 8 UNITS; Start 04/01/19 at 20:00 Chlorpromazine (Thorazine) 25 mg BID PRN PO hiccups; Start 04/01/19 at 20:00 Insulin Human NPH (Humulin N) 8 unit Q8 SC Last administered on 04/03/19 06:27; Admin Dose 8 UNIT; Start 04/02/19 at 14:00 Ranitidine HCl (Zantac) 300 mg QHS PO Last administered on 04/02/19 21:40; Admin Dose 300 MG; Start 04/02/19 at 21:00 Docusate Sodium/ Ferrous Fumarate (Angela-Sequels) 1 tab DAILY PO Last administered on 04/02/19 14:17; Admin Dose 1 TAB; Start 04/02/19 at 12:30; Stop 05/02/19 at 12:29 DOT ASHLEY MD Apr 03, 2019 08:20
[2019-04-03] MEDS: FERROUS FUMARATE (SR) TAB PO SCH (08:39)
[2019-04-03] MEDS: AMLODIPINE 5 MG TAB PO SCH ×2 (08:39→20:51)
[2019-04-03] MEDS: ASPIRIN 325 MG TAB PO SCH (08:39)
[2019-04-03] MEDS: HEPARIN 5,000 UNIT/1 ML VIAL SC SCH ×2 (08:42→20:53)
[2019-04-03] MEDS: LINAGLIPTIN 5 MG TABLET PO SCH (08:43)
--- NOTE | 2019-04-03 12:52 | PN ---
Date/Time of Note Date/Time of Note DATE: 04/03/19 TIME: 12:46 Assessment/Plan Lines/Catheters IV Catheter Type (from Nrs): [place] in Place (from Nrs): Yes Assessment/Plan Assessment/Plan R foot well perfused s/p R fem-PT bypass, awaiting TMA when he is more stable Respiratory failure / fluid overload - back on BIPAP CKD now w/ESRD, dialyzing via L femoral [place], scheduled for permacath on Saturday - he was SOB this AM so I rescheduled him for Saturday Subjective 24 Hr Interval Summary Desaturating again this AM, back on BIPAP and he looks comfortable, on HD now. Exam/Review of Systems Vital Signs Vitals Vital Signs Date Temp Pulse Resp B/P (MAP) Pulse Ox O2 O2 Flow FiO2 Time Delivery Rate 04/03/19 97.6 70 16 121/63 100 BIPAP 12:00 (82) 04/03/19 60 11:05 04/02/19 25.0 20:00 Intake and Output 04/02/19 04/02/19 04/03/19 1515:00 23:00 07:00 IntakeIntake Total 600 ml 290 ml 120 ml OutputOutput Total 100 ml 0 ml BalanceBalance 600 ml 190 ml 120 ml Exam Free Text/Dictation R leg incisions CDI, 2+ graft pulse, toes are mummified, no signs of infection Results Result Diagram: 04/03/19 0439 04/03/19 0400 WALTER LOWERY MD Apr 03, 2019 12:52
--- NOTE | 2019-04-03 13:08 | PN ---
Date/Time of Note Date/Time of Note DATE: 04/03/19 TIME: 13:04 Assessment/Plan VTE Prophylaxis Risk score (from [facility])>0 risk: 8 SCD applied (from [facility]): No SCD contraindicated: bilateral LE trauma Pharmacological prophylaxis: heparin Lines/Catheters IV Catheter Type (from [facility]): Central Line Central line still needed: Yes Urinary Cath still in place: Yes Reason Cath still needed: urinary retention Assessment/Plan Problems: (1) Diabetes, polyneuropathy Status: Chronic Comment: Patient's blood sugar control has improved with usage of NPH insulin in combination with steroids. Continue the current treatment and work on the underlying problems Qualifiers: Diabetes mellitus type: type 2 Qualified Codes: E11.42 - Type 2 diabetes mellitus with diabetic polyneuropathy (2) Type 2 diabetes mellitus with diabetic peripheral angiopathy with gangrene Status: Acute Comment: Pending surgical treatment of lower extremity gangrene Qualifiers: Diabetes mellitus terminologist insulin use: with terminologist use Qualified Codes: E11.52 - Type 2 diabetes mellitus with diabetic peripheral angiopathy with gangrene; Z79.4 - intermediate accountant (current) use of insulin (3) Acute respiratory failure with hypoxia Status: Acute Comment: As per pulmonary. Still significant issue (4) Gangrene of toe of right foot Status: Acute Comment: For surgical debridement (5) Vitamin D deficiency Status: Chronic Comment: Being replaced Result Diagram: 04/03/19 0439 04/03/19 0400 Results 24hrs Laboratory Tests Test 04/02/19 14:16 04/02/19 16:43 04/02/19 21:06 04/03/19 04:00 Bedside Glucose 182 181 152 Sodium Level 133 L Potassium Level 5.3 H Chloride Level 96 L Carbon Dioxide Level 26 Anion Gap 11 Blood Urea Nitrogen 80 H Creatinine 5.59 H Est Glomerular 10 L Filtrat Rate mL/min Glucose Level 132 # Calcium Level 8.5 Test 04/03/19 04:39 04/03/19 06:14 04/03/19 09:01 04/03/19 09:52 White Blood Count 10.4 Red Blood Count 3.24 L Hemoglobin 9.5 L Hematocrit 29.8 L Mean Corpuscular 92.0 Volume Mean Corpuscular 29.3 Hemoglobin Mean Corpuscular 31.9 L Hemoglobin Concent Red Cell 14.4 Distribution Width Platelet Count 327 Mean Platelet Volume 10.4 Immature 1.200 H Granulocytes % Neutrophils % 90.5 H Lymphocytes % 4.9 L Monocytes % 3.4 Eosinophils % 0.0 Basophils % 0.0 Nucleated Red Blood 0.6 H Cells % Immature 0.120 H Granulocytes # Neutrophils # 9.4 H Lymphocytes # 0.5 L Monocytes # 0.4 Eosinophils # 0.0 Basophils # 0.0 Nucleated Red Blood 0.1 H Cells # Bedside Glucose 132 131 Urine Color EVAN Urine Clarity TURBID A Urine pH 5.0 Urine Specific 1.016 [place] Urine Ketones TRACE A Urine Nitrite NEGATIVE Urine Bilirubin NEGATIVE Urine Urobilinogen NEGATIVE Urine Leukocyte 1+ H Esterase Urine Microscopic 51 H RBC Urine Microscopic 84 H WBC Urine Squamous FEW Epithelial Cells Urine Amorphous FEW A Crystals Urine Bacteria FEW A Urine Mucus FEW A Urine Hemoglobin 2+ H Urine Glucose 1+ H Urine Total Protein 3+ H Test 04/03/19 11:26 Bedside Glucose 134 Subjective 24 Hr Interval Summary Free Text/Dictation Patient presently on BiPAP. Indicates with the BiPAP this is helping his breathing Constitutional: no complaints (Denies fevers chills or sweats) Respiratory: shortness of breath Cardiovascular: no complaints Gastrointestinal: no complaints Genitourinary: no complaints Exam/Review of Systems Exam Vitals Vital Signs Date Temp Pulse Resp B/P (MAP) Pulse Ox O2 O2 Flow FiO2 Time Delivery Rate 04/03/19 68 99 60 12:44 04/03/19 97.6 16 121/63 BIPAP 12:00 (82) 04/02/19 25.0 20:00 Intake and Output 04/02/19 04/02/19 04/03/19 1515:00 23:00 07:00 IntakeIntake Total 600 ml 290 ml 120 ml OutputOutput Total 100 ml 0 ml BalanceBalance 600 ml 190 ml 120 ml Constitutional: alert, oriented Respiratory: clear to auscultation, normal air movement Cardiovascular: regular rate and rhythm, nl pulses Gastrointestinal: soft, nl liver, spleen, non-tender Results Results 24hrs Laboratory Tests Test 04/02/19 14:16 04/02/19 16:43 04/02/19 21:06 04/03/19 04:00 Bedside Glucose 182 181 152 Sodium Level 133 L Potassium Level 5.3 H Chloride Level 96 L Carbon Dioxide Level 26 Anion Gap 11 Blood Urea Nitrogen 80 H Creatinine 5.59 H Est Glomerular 10 L Filtrat Rate mL/min Glucose Level 132 # Calcium Level 8.5 Test 04/03/19 04:39 04/03/19 06:14 04/03/19 09:01 04/03/19 09:52 White Blood Count 10.4 Red Blood Count 3.24 L Hemoglobin 9.5 L Hematocrit 29.8 L Mean Corpuscular 92.0 Volume Mean Corpuscular 29.3 Hemoglobin Mean Corpuscular 31.9 L Hemoglobin Concent Red Cell 14.4 Distribution Width Platelet Count 327 Mean Platelet Volume 10.4 Immature 1.200 H Granulocytes % Neutrophils % 90.5 H Lymphocytes % 4.9 L Monocytes % 3.4 Eosinophils % 0.0 Basophils % 0.0 Nucleated Red Blood 0.6 H Cells % Immature 0.120 H Granulocytes # Neutrophils # 9.4 H Lymphocytes # 0.5 L Monocytes # 0.4 Eosinophils # 0.0 Basophils # 0.0 Nucleated Red Blood 0.1 H Cells # Bedside Glucose 132 131 Urine Color EVAN Urine Clarity TURBID A Urine pH 5.0 Urine Specific 1.016 [place] Urine Ketones TRACE A Urine Nitrite NEGATIVE Urine Bilirubin NEGATIVE Urine Urobilinogen NEGATIVE Urine Leukocyte 1+ H Esterase Urine Microscopic 51 H RBC Urine Microscopic 84 H WBC Urine Squamous FEW Epithelial Cells Urine Amorphous FEW A Crystals Urine Bacteria FEW A Urine Mucus FEW A Urine Hemoglobin 2+ H Urine Glucose 1+ H Urine Total Protein 3+ H Test 04/03/19 11:26 Bedside Glucose 134 Medications Medication Current Medications Aspirin (Aspirin) 325 mg DAILY PO Last administered on 04/03/19 08:39; Admin Dose 325 MG; Start 03/24/19 at 09:00 Atorvastatin Calcium (Lipitor) 40 mg QHS PO Last administered on 04/02/19at 2 1:25; Admin Dose 40 MG; Start 03/23/19 at 21:00 Carvedilol (Coreg) 12.5 mg BID PO Last administered on 04/03/19 08:40; Admin Dose 12.5 MG; Start 03/23/19 at 21:00 Linagliptin (Tradjenta) 5 mg DAILY PO Last administered on 04/03/19 08:43; Admin Dose 5 MG; Start 03/24/19 at 09:00 Ondansetron HCl (Zofran Inj) 4 mg Q4H PRN IV NAUSEA AND/OR VOMITING Last administered on 03/28/19 20:28; Admin Dose 4 MG; Start 03/23/19 at 18:00 Hydromorphone HCl (Dilaudid) 2 mg Q4H PRN IV SEVERE PAIN LEVEL 7-10 Last administered on 03/31/19 17:00; Admin Dose 2 MG; Start 03/23/19 at 18:00 Miscellaneous Information 1 ea NOTE XX ; Start 03/23/19 at 18:30 Glucose (Glutose) 15 gm Q15M PRN PO DECREASED GLUCOSE; Start 03/23/19 at 18:30 Glucose (Glutose) 22.5 gm Q15M PRN PO DECREASED GLUCOSE; Start 03/23/19 at 18:30 Dextrose (D50w Syringe) 25 ml Q15M PRN IV DECREASED GLUCOSE; Start 03/23/19 at 18:30 Dextrose (D50w Syringe) 50 ml Q15M PRN IV DECREASED GLUCOSE; Start 03/23/19 at 18:30 Glucagon (Glucagen) 1 mg Q15M PRN IM DECREASED GLUCOSE; Start 03/23/19 at 18:30 Glucose (Glutose) 15 gm Q15M PRN BUCCAL DECREASED GLUCOSE; Start 03/23/19 at 18:30 Epoetin Joseph-epbx (Retacrit (Esrd)) 10,000 unit TuThSa@1700 SC Last administered on 04/02/19 16:38; Admin Dose 10,000 UNIT; Start 03/24/19 at 17:00 Acetaminophen/ Hydrocodone Bitart ([place] (5/325)) 1 tab Q6H PRN PO .MOD PAIN 4- 6 Last administered on 04/02/19 21:25; Admin Dose 1 TAB; Start 03/24/19 at 22:30 Albumin Human 100 ml @ 100 mls/hr WITH DIALYSIS PRN IV SBP <90 DURING DIALYSIS Last administered on 03/29/19 10:43; Admin Dose 100 MLS/HR; Start 03/27/19 at 12:00 Albuterol/ Ipratropium (Duoneb) 3 ml Q4HWA RESP THERAPY HHN Last administered on 04/03/19 12:42; Admin Dose 3 ML; Start 03/27/19 at 21:00 Heparin Sodium (Porcine) (Heparin (1000 Units/ml)) 3,000 unit AFTER DIALYSIS CATHETER Last administered on 04/01/19 10:14; Admin Dose 3,000 UNIT; Start 03/28/19 at 09:30 Magnesium Hydroxide (Milk Of Mag) 30 ml DAILY PRN PO CONSTIPATION Last adminis tered on 03/28/19 20:48; Admin Dose 30 ML; Start 03/28/19 at 15:30 Heparin Sodium (Porcine) (Heparin (5000 Units/1ml)) 5,000 unit BID SC Last administered on 04/03/19 08:42; Admin Dose 5,000 UNIT; Start 03/29/19 at 21:00 Metoclopramide HCl (Reglan) 5 mg Q6 IV Last administered on 04/03/19 11:34; Admin Dose 5 MG; Start 03/29/19 at 18:00 Meropenem/Sodium Chloride 50 ml @ 100 mls/hr Q24H IVPB Last administered on 04/02/19 16:36; Admin Dose 100 MLS/HR; Start 03/29/19 at 18:00 Diagnostic Test (Pha) (Accu-Chek) 1 ea 02 XX Last administered on 04/02/19 01:49; Admin Dose 1 EA; Start 04/01/19 at 02:00 Methylprednisolone Sodium Succinate (Solu-Medrol) 60 mg Q8 IV Last administered on 04/03/19 06:15; Admin Dose 60 MG; Start 03/31/19 at 10:30 Insulin Aspart (Novolog Insulin Pen) NOVOLOG *MODERATE* ALGORITHM WITH MEALS BEDTIME SC Last administered on 04/02/19 16:46; Admin Dose 4 UNIT; Start 03/31/19 at 21:00 Metoclopramide HCl (Reglan) 5 mg Q6H PRN IV NAUSEA; Start 04/01/19 at 09:35 Amlodipine Besylate (Norvasc) 5 mg BID PO Last administered on 04/03/19 08:39; Admin Dose 5 MG; Start 04/01/19 at 21:00 Insulin Glargine (Lantus) 8 units DAILY@2000 SC Last administered on 04/02/19 21:44; Admin Dose 8 UNITS; Start 04/01/19 at 20:00 Chlorpromazine (Thorazine) 25 mg BID PRN PO hiccups; Start 04/01/19 at 20:00 Insulin Human NPH (Humulin N) 8 unit Q8 SC Last administered on 04/03/19at 06:27; Admin Dose 8 UNIT; Start 04/02/19 at 14:00 Ranitidine HCl (Zantac) 300 mg QHS PO Last administered on 04/02/19at 21:40; Admin Dose 300 MG; Start 04/02/19 at 21:00 Docusate Sodium/ Ferrous Fumarate (Angela-Sequels) 1 tab DAILY PO Last administered on 04/03/19at 08:39; Admin Dose 1 TAB; Start 04/02/19 at 12:30; Stop 05/02/19 at 12:29 KYLEE POE MD Apr 03, 2019 13:08
--- NOTE | 2019-04-03 13:14 | CONS ---
Consult Date/Type/Reason Admit Date/Time Mar 23, 2019 at 06:13 Initial Consult Date 03/28/19 Type of Consult Pulmonary Requesting Provider: JOSE PARRY MD Date/Time of Note DATE: 04/03/19 TIME: 13:13 Subjective Increasing respiratory distress with worsening bilateral infiltrates. Now requiring bilevel ventilation Objective Vital Signs Date Temp Pulse Resp B/P (MAP) Pulse Ox O2 O2 Flow FiO2 Time Delivery Rate 04/03/19 68 16 121/63 100 BIPAP 13:02 (82) 04/03/19 60 12:44 04/03/19 97.6 12:00 04/02/19 25.0 20:00 Intake and Output 04/02/19 04/02/19 04/03/19 1515:00 23:00 07:00 IntakeIntake Total 600 ml 290 ml 120 ml OutputOutput Total 100 ml 0 ml BalanceBalance 600 ml 190 ml 120 ml Exam GENERAL: Well-nourished well-developed gentleman on bilevel ventilation VITAL SIGNS: per chart NECK: Supple. No JVD or lymphadenopathy. CARDIAC EXAM: S1, S2. No added sounds or murmurs. CHEST: Diminished air entry with rales ABDOMEN: Soft, nontender. No guarding or rebound. EXTREMITIES: No cyanosis, clubbing or edema. NEUROLOGIC: Generalized weakness. No focal deficits. Vent Setting Fraction of Inspired Oxygen pe: 100 Results/Medications Result Diagram: 04/03/19 0439 04/03/19 0400 Results 24 hrs Laboratory Tests Test 04/02/19 14:16 04/02/19 16:43 04/02/19 21:06 04/03/19 04:00 Bedside Glucose 182 181 152 Sodium Level 133 L Potassium Level 5.3 H Chloride Level 96 L Carbon Dioxide Level 26 Anion Gap 11 Blood Urea Nitrogen 80 H Creatinine 5.59 H Est Glomerular 10 L Filtrat Rate mL/min Glucose Level 132 # Calcium Level 8.5 Test 04/03/19 04:39 04/03/19 06:14 04/03/19 09:01 04/03/19 09:52 White Blood Count 10.4 Red Blood Count 3.24 L Hemoglobin 9.5 L Hematocrit 29.8 L Mean Corpuscular 92.0 Volume Mean Corpuscular 29.3 Hemoglobin Mean Corpuscular 31.9 L Hemoglobin Concent Red Cell 14.4 Distribution Width Platelet Count 327 Mean Platelet Volume 10.4 Immature 1.200 H Granulocytes % Neutrophils % 90.5 H Lymphocytes % 4.9 L Monocytes % 3.4 Eosinophils % 0.0 Basophils % 0.0 Nucleated Red Blood 0.6 H Cells % Immature 0.120 H Granulocytes # Neutrophils # 9.4 H Lymphocytes # 0.5 L Monocytes # 0.4 Eosinophils # 0.0 Basophils # 0.0 Nucleated Red Blood 0.1 H Cells # Bedside Glucose 132 131 Urine Color EVAN Urine Clarity TURBID A Urine pH 5.0 Urine Specific 1.016 [place] Urine Ketones TRACE A Urine Nitrite NEGATIVE Urine Bilirubin NEGATIVE Urine Urobilinogen NEGATIVE Urine Leukocyte 1+ H Esterase Urine Microscopic 51 H RBC Urine Microscopic 84 H WBC Urine Squamous FEW Epithelial Cells Urine Amorphous FEW A Crystals Urine Bacteria FEW A Urine Mucus FEW A Urine Hemoglobin 2+ H Urine Glucose 1+ H Urine Total Protein 3+ H Test 04/03/19 11:26 Bedside Glucose 134 Medications Current Medications Aspirin (Aspirin) 325 mg DAILY PO Last administered on 04/03/19 08:39; Admin Dose 325 MG; Start 03/24/19 at 09:00 Atorvastatin Calcium (Lipitor) 40 mg QHS PO Last administered on 04/02/19 21:25; Admin Dose 40 MG; Start 03/23/19 at 21:00 Carvedilol (Coreg) 12.5 mg BID PO Last administered on 04/03/19 08:40; Admin Dose 12.5 MG; Start 03/23/19 at 21:00 Linagliptin (Tradjenta) 5 mg DAILY PO Last administered on 04/03/19 08:43; Admin Dose 5 MG; Start 03/24/19 at 09:00 Ondansetron HCl (Zofran Inj) 4 mg Q4H PRN IV NAUSEA AND/OR VOMITING Last administered on 03/28/19 20:28; Admin Dose 4 MG; Start 03/23/19 at 18:00 Hydromorphone HCl (Dilaudid) 2 mg Q4H PRN IV SEVERE PAIN LEVEL 7-10 Last administered on 03/31/19 17:00; Admin Dose 2 MG; Start 03/23/19 at 18:00 Miscellaneous Information 1 ea NOTE XX ; Start 03/23/19 at 18:30 Glucose (Glutose) 15 gm Q15M PRN PO DECREASED GLUCOSE; Start 03/23/19 at 18:30 Glucose (Glutose) 22.5 gm Q15M PRN PO DECREASED GLUCOSE; Start 03/23/19 at 18:30 Dextrose (D50w Syringe) 25 ml Q15M PRN IV DECREASED GLUCOSE; Start 03/23/19 at 18:30 Dextrose (D50w Syringe) 50 ml Q15M PRN IV DECREASED GLUCOSE; Start 03/23/19 at 18:30 Glucagon (Glucagen) 1 mg Q15M PRN IM DECREASED GLUCOSE; Start 03/23/19 at 18:30 Glucose (Glutose) 15 gm Q15M PRN BUCCAL DECREASED GLUCOSE; Start 03/23/19 at 18:30 Epoetin Joseph-epbx (Retacrit (Esrd)) 10,000 unit TuThSa@1700 SC Last administered on 04/02/19 16:38; Admin Dose 10,000 UNIT; Start 03/24/19 at 17:00 Acetaminophen/ Hydrocodone Bitart ([place] (5/325)) 1 tab Q6H PRN PO .MOD PAIN 4- 6 Last administered on 04/02/19 21:25; Admin Dose 1 TAB; Start 03/24/19 at 22:30 Albumin Human 100 ml @ 100 mls/hr WITH DIALYSIS PRN IV SBP <90 DURING DIALYSIS Last administered on 03/29/19 10:43; Admin Dose 100 MLS/HR; Start 03/27/19 at 12:00 Albuterol/ Ipratropium (Duoneb) 3 ml Q4HWA RESP THERAPY HHN Last administered on 04/03/19 12:42; Admin Dose 3 ML; Start 03/27/19 at 21:00 Heparin Sodium (Porcine) (Heparin (1000 Units/ml)) 3,000 unit AFTER DIALYSIS CATHETER Last administered on 04/01/19 10:14; Admin Dose 3,000 UNIT; Start 03/28/19 at 09:30 Magnesium Hydroxide (Milk Of Mag) 30 ml DAILY PRN PO CONSTIPATION Last administered on 03/28/19 20:48; Admin Dose 30 ML; Start 03/28/19 at 15:30 Heparin Sodium (Porcine) (Heparin (5000 Units/1ml)) 5,000 unit BID SC Last administered on 04/03/19 08:42; Admin Dose 5,000 UNIT; Start 03/29/19 at 21:00 Metoclopramide HCl (Reglan) 5 mg Q6 IV Last administered on 04/03/19 11:34; Admin Dose 5 MG; Start 03/29/19 at 18:00 Meropenem/Sodium Chloride 50 ml @ 100 mls/hr Q24H IVPB Last administered on 16:36; Admin Dose 100 MLS/HR; Start 03/29/19 at 18:00 Diagnostic Test (Pha) (Accu-Chek) 1 ea 02 XX Last administered on 04/02/19 01:49; Admin Dose 1 EA; Start 04/01/19 at 02:00 Methylprednisolone Sodium Succinate (Solu-Medrol) 60 mg Q8 IV Last administered on 04/03/19 06:15; Admin Dose 60 MG; Start 03/31/19 at 10:30 Insulin Aspart (Novolog Insulin Pen) NOVOLOG *MODERATE* ALGORITHM WITH MEALS BEDTIME SC Last administered on 04/02/19 16:46; Admin Dose 4 UNIT; Start 03/31/19 at 21:00 Metoclopramide HCl (Reglan) 5 mg Q6H PRN IV NAUSEA; Start 04/01/19 at 09:35 Amlodipine Besylate (Norvasc) 5 mg BID PO Last administered on 04/03/19 08:39; Admin Dose 5 MG; Start 04/01/19 at 21:00 Insulin Glargine (Lantus) 8 units DAILY@2000 SC Last administered on 04/02/19 21:44; Admin Dose 8 UNITS; Start 04/01/19 at 20:00 Chlorpromazine (Thorazine) 25 mg BID PRN PO hiccups; Start 04/01/19 at 20:00 Insulin Human NPH (Humulin N) 8 unit Q8 SC Last administered on 04/03/19 06:27; Admin Dose 8 UNIT; Start 04/02/19 at 14:00 Ranitidine HCl (Zantac) 300 mg QHS PO Last administered on 04/02/19 21:40; Admin Dose 300 MG; Start 04/02/19 at 21:00 Docusate Sodium/ Ferrous Fumarate (Angela-Sequels) 1 tab DAILY PO Last administered on 04/03/19 08:39; Admin Dose 1 TAB; Start 04/02/19 at 12:30; Stop 8/17/19 at 12:29 Assessment/Plan Hospital Course (Demo Recall) IMPRESSION: 1. Acute hypoxemic respiratory failure requiring BiPAP support. 2. Acute on chronic renal failure, now requiring dialysis. 3. Peripheral vascular disease, status post revascularization. 4. Likely aspiration pneumonia as well. 5. Diabetes mellitus. 6. History of hypertension. 7. Benign prostatic hypertrophy. RECOMMENDATIONS: 1. Continue BiPAP for now. Trial of high flow O2 2. Aspiration precautions 3. No significant response to steroids will consider decreasing doses sooner if patient not improving. 4. Hemodialysis per nephrology. Would suggest more volume removal today if tolerated Critical care time 40 minutes. Keep in ICU until FiO2 less than 50%. DMITRI PAIGE MD, [facility] Apr 03, 2019 13:14
--- NOTE | 2019-04-03 13:34 | CONS ---
Assessment/Plan Assessment/Plan Hospital Course (Demo Recall) Acute respiratory failure Acute kidney injury on hemodialysis Peripheral arterial disease status post bypass Hypertension Preserved left ventricular ejection fraction echocardiogram January 2019 Respiratory status worsening, required to be back on BiPAP Fluid management via hemodialysis as per nephrology Continue statin and aspirin therapy if able to take p.o., if no contraindication, change asa to 81mg daily Titrate blood pressure meds as needed Consultation Date/Type/Reason Admit Date/Time Mar 23, 2019 at 06:13 Initial Consult Date 03/28/19 Type of Consult Cardiology Requesting Provider: MICHELE PARRY MD Date/Time of Note DATE: 04/03/19 TIME: 13:33 24 HR Interval Summary Free Text/Dictation Respiratory status worsened, requiring BiPAP, denies chest pain, shortness of breath is better Exam/Review of Systems Vital Signs Vitals Vital Signs Date Temp Pulse Resp B/P (MAP) Pulse Ox O2 O2 Flow FiO2 Time Delivery Rate 04/03/19 65 13:10 04/03/19 16 121/63 100 BIPAP 13:02 (82) 04/03/19 60 12:44 04/03/19 97.6 12:00 04/02/19 25.0 20:00 Intake and Output 04/02/19 04/02/19 04/03/19 1515:00 23:00 07:00 IntakeIntake Total 600 ml 290 ml 120 ml OutputOutput Total 100 ml 0 ml BalanceBalance 600 ml 190 ml 120 ml Exam Exam Alert, on BiPAP, undergoing hemodialysis Head: normocephalic Respiratory: other (Coarse breath sounds bilaterally, no wheezing) Cardiovascular: regular rate and rhythm (S1-S2 heard) Gastrointestinal: soft, non-tender, bowel sounds Extremities: edema Labs Result Diagram: 04/03/19 0439 04/03/19 0400 Results 24hrs Laboratory Tests Test 04/02/19 14:16 04/02/19 16:43 04/02/19 21:06 04/03/19 04:00 Bedside Glucose 182 181 152 Sodium Level 133 L Potassium Level 5.3 H Chloride Level 96 L Carbon Dioxide Level 26 Anion Gap 11 Blood Urea Nitrogen 80 H Creatinine 5.59 H Est Glomerular 10 L Filtrat Rate mL/min Glucose Level 132 # Calcium Level 8.5 Test 04/03/19 04:39 04/03/19 06:14 04/03/19 09:01 04/03/19 09:52 White Blood Count 10.4 Red Blood Count 3.24 L Hemoglobin 9.5 L Hematocrit 29.8 L Mean Corpuscular 92.0 Volume Mean Corpuscular 29.3 Hemoglobin Mean Corpuscular 31.9 L Hemoglobin Concent Red Cell 14.4 Distribution Width Platelet Count 327 Mean Platelet Volume 10.4 Immature 1.200 H Granulocytes % Neutrophils % 90.5 H Lymphocytes % 4.9 L Monocytes % 3.4 Eosinophils % 0.0 Basophils % 0.0 Nucleated Red Blood 0.6 H Cells % Immature 0.120 H Granulocytes # Neutrophils # 9.4 H Lymphocytes # 0.5 L Monocytes # 0.4 Eosinophils # 0.0 Basophils # 0.0 Nucleated Red Blood 0.1 H Cells # Bedside Glucose 132 131 Urine Color EVAN Urine Clarity TURBID A Urine pH 5.0 Urine Specific 1.016 [place] Urine Ketones TRACE A Urine Nitrite NEGATIVE Urine Bilirubin NEGATIVE Urine Urobilinogen NEGATIVE Urine Leukocyte 1+ H Esterase Urine Microscopic 51 H RBC Urine Microscopic 84 H WBC Urine Squamous FEW Epithelial Cells Urine Amorphous FEW A Crystals Urine Bacteria FEW A Urine Mucus FEW A Urine Hemoglobin 2+ H Urine Glucose 1+ H Urine Total Protein 3+ H Test 04/03/19 11:26 Bedside Glucose 134 Medications Medications Current Medications Aspirin (Aspirin) 325 mg DAILY PO Last administered on 04/03/19at 08:39; Admin Dose 325 MG; Start 03/24/19 at 09:00 Atorvastatin Calcium (Lipitor) 40 mg QHS PO Last administered on 04/02/19at 21:25; Admin Dose 40 MG; Start 03/23/19 at 21:00 Carvedilol (Coreg) 12.5 mg BID PO Last administered on 04/03/19at 08:40; Admin Dose 12.5 MG; Start 03/23/19 at 21:00 Linagliptin (Tradjenta) 5 mg DAILY PO Last administered on 04/03/19 08:43; Admin Dose 5 MG; Start 03/24/19 at 09:00 Ondansetron HCl (Zofran Inj) 4 mg Q4H PRN IV NAUSEA AND/OR VOMITING Last administered on 03/28/19 20:28; Admin Dose 4 MG; Start 03/23/19 at 18:00 Hydromorphone HCl (Dilaudid) 2 mg Q4H PRN IV SEVERE PAIN LEVEL 7-10 Last administered on 03/31/19 17:00; Admin Dose 2 MG; Start 03/23/19 at 18:00 Miscellaneous Information 1 ea NOTE XX ; Start 03/23/19 at 18:30 Glucose (Glutose) 15 gm Q15M PRN PO DECREASED GLUCOSE; Start 03/23/19 at 18:30 Glucose (Glutose) 22.5 gm Q15M PRN PO DECREASED GLUCOSE; Start 03/23/19 at 18:30 Dextrose (D50w Syringe) 25 ml Q15M PRN IV DECREASED GLUCOSE; Start 03/23/19 at 18:30 Dextrose (D50w Syringe) 50 ml Q15M PRN IV DECREASED GLUCOSE; Start 03/23/19 at 18:30 Glucagon (Glucagen) 1 mg Q15M PRN IM DECREASED GLUCOSE; Start 03/23/19 at 18:30 Glucose (Glutose) 15 gm Q15M PRN BUCCAL DECREASED GLUCOSE; Start 03/23/19 at 18: 30 Epoetin Joseph-epbx (Retacrit (Esrd)) 10,000 unit TuThSa@1700 SC Last administered on 04/02/19 16:38; Admin Dose 10,000 UNIT; Start 03/24/19 at 17:00 Acetaminophen/ Hydrocodone Bitart ([place] (5/325)) 1 tab Q6H PRN PO .MOD PAIN 4- 6 Last administered on 04/02/19 21:25; Admin Dose 1 TAB; Start 03/24/19 at 22:30 Albumin Human 100 ml @ 100 mls/hr WITH DIALYSIS PRN IV SBP <90 DURING DIALYSIS Last administered on 03/29/19 10:43; Admin Dose 100 MLS/HR; Start 03/27/19 at 12:00 Albuterol/ Ipratropium (Duoneb) 3 ml Q4HWA RESP THERAPY HHN Last administered on 04/03/19 12:42; Admin Dose 3 ML; Start 03/27/19 at 21:00 Heparin Sodium (Porcine) (Heparin (1000 Units/ml)) 3,000 unit AFTER DIALYSIS CA THETER Last administered on 04/01/19at 10:14; Admin Dose 3,000 UNIT; Start 03/28/19 at 09:30 Magnesium Hydroxide (Milk Of Mag) 30 ml DAILY PRN PO CONSTIPATION Last administered on 03/28/19 20:48; Admin Dose 30 ML; Start 03/28/19 at 15:30 Heparin Sodium (Porcine) (Heparin (5000 Units/1ml)) 5,000 unit BID SC Last administered on 04/03/19 08:42; Admin Dose 5,000 UNIT; Start 03/29/19 at 21:00 Metoclopramide HCl (Reglan) 5 mg Q6 IV Last administered on 04/03/19 11:34; Admin Dose 5 MG; Start 03/29/19 at 18:00 Meropenem/Sodium Chloride 50 ml @ 100 mls/hr Q24H IVPB Last administered on 04/02/19 16:36; Admin Dose 100 MLS/HR; Start 03/29/19 at 18:00 Diagnostic Test (Pha) (Accu-Chek) 1 ea 02 XX Last administered on 04/02/19 01:49; Admin Dose 1 EA; Start 04/01/19 at 02:00 Methylprednisolone Sodium Succinate (Solu-Medrol) 60 mg Q8 IV Last administered on 04/03/19 06:15; Admin Dose 60 MG; Start 03/31/19 at 10:30 Insulin Aspart (Novolog Insulin Pen) NOVOLOG *MODERATE* ALGORITHM WITH MEALS BEDTIME SC Last administered on 04/02/19 16:46; Admin Dose 4 UNIT; Start 03/31/19 at 21:00 Metoclopramide HCl (Reglan) 5 mg Q6H PRN IV NAUSEA; Start 04/01/19 at 09:35 Amlodipine Besylate (Norvasc) 5 mg BID PO Last administered on 04/03/19 08:39; Admin Dose 5 MG; Start 04/01/19 at 21:00 Insulin Glargine (Lantus) 8 units DAILY@2000 SC Last administered on 04/02/19 21:44; Admin Dose 8 UNITS; Start 04/01/19 at 20:00 Chlorpromazine (Thorazine) 25 mg BID PRN PO hiccups; Start 04/01/19 at 20:00 Insulin Human NPH (Humulin N) 8 unit Q8 SC Last administered on 04/03/19 06:27; Admin Dose 8 UNIT; Start 04/02/19 at 14:00 Ranitidine HCl (Zantac) 300 mg QHS PO Last administered on 04/02/19at 21:40; Admin Dose 300 MG; Start 04/02/19 at 21:00 Docusate Sodium/ Ferrous Fumarate (Angela-Sequels) 1 tab DAILY PO Last administered on 04/03/19at 08:39; Admin Dose 1 TAB; Start 04/02/19 at 12:30; St op 05/02/19 at 12:29 Michele Richard DO Apr 03, 2019 13:34
[2019-04-03] MEDS: HEPARIN 1000 UNITS/ML 10 ML INJ CATHETER SCH (15:44)
[2019-04-03] MEDS: MEROPENEM 500MG/50 ML (PMX) 50 ML IVPB SCH (17:11)
--- NOTE | 2019-04-03 17:31 | CONS ---
Assessment/Plan Assessment/Plan Hospital Course (Demo Recall) assessment/impression - acute hypoxic resp failure, probably multifactorial: first, fluid overload. Pt's oxygenation improved after undergoing dialysis and so fluid overload is a significant factor. Second, I suspect aspiration pneumonia/pneumonitis. Pt reportedly was having spells of congested cough upon arrival at ICU. Pt has h/o "excessive saliva production" since 08/2018 according to Pt's daughter in law. This increases a risk of aspiration pneumonia and/or pneumonitis. 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, Pt is scheduled to get R TMA once his acute il lness resolves - s/p R SFA to posterior tibial bypass using in situ greater saphenous vein from R thigh and calf on 03/23/2019 - former smoker - constipation - Pt completed pip/tazo (03/25/19-03/28/19) and IV vancomycin (03/25/19-03/30/19) recommendations: - I recommend 7 days of renally dosed meropenem (03/29/19-) - Pt was started on a trial of steroid by pulm service, will monitor WBC level management d/w Pt and his RN Rashaun the critical care time I took to care for this Pt today was from 1630 to 1700 Consultation Date/Type/Reason Admit Date/Time Mar 23, 2019 at 06:13 Initial Consult Date 03/28/19 Type of Consult ID Requesting Provider: JOSE PARRY MD Date/Time of Note DATE: 04/03/19 TIME: 17:26 24 HR Interval Summary Free Text/Dictation de-saturated this morning; improved after HD Constitutional: improved Detailed Summary Eyes: no complaints ENT: no complaints Respiratory: shortness of breath; No cough, No pleuritic pain, No sputum, No wheezing Cardiovascular: no complaints Gastrointestinal: no complaints Genitourinary: no complaints Musculoskeletal: other (+ischemic R toes) Skin: no complaints Neurologic: no complaints Exam/Review of Systems Exam Vitals Vital Signs Date Temp Pulse Resp B/P (MAP) Pulse Ox O2 O2 Flow FiO2 Time Delivery Rate 04/03/19 80 13 131/80 100 High Flow 17:00 (97) 04/03/19 85 16:58 04/03/19 97.6 12:00 04/02/19 25.0 20:00 Intake and Output 04/02/19 04/02/19 04/03/19 1515:00 23:00 07:00 IntakeIntake Total 600 ml 290 ml 120 ml OutputOutput Total 100 ml 0 ml BalanceBalance 600 ml 190 ml 120 ml Constitutional: frail Psych: no complaints Head: normocephalic, atraumatic Eyes: nl conjunctiva, nl lids, nl sclera ENMT: nl external ears & nose, nl nasal mucosa & septum, mucosa pink and moist Neck: supple, non-tender Respiratory: crackles/rales Cardiovascular: regular rate and rhythm, nl pulses; No edema Gastrointestinal: soft, non-tender; No distended, No tender Musculoskeletal: nl extremities to inspection Extremities: No edema 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, nl mental status Skin: nl turgor Results Result Diagram: 04/03/19 0439 04/03/19 0400 Results 24hrs Laboratory Tests Test 04/02/19 21:06 04/03/19 04:00 04/03/19 04:39 04/03/19 06:14 Bedside Glucose 152 132 Sodium Level 133 L Potassium Level 5.3 H Chloride Level 96 L Carbon Dioxide Level 26 Anion Gap 11 Blood Urea Nitrogen 80 H Creatinine 5.59 H Est Glomerular 10 L Filtrat Rate mL/min Glucose Level 132 # Calcium Level 8.5 White Blood Count 10.4 Red Blood Count 3.24 L Hemoglobin 9.5 L Hematocrit 29.8 L Mean Corpuscular 92.0 Volume Mean Corpuscular 29.3 Hemoglobin Mean Corpuscular 31.9 L Hemoglobin Concent Red Cell 14.4 Distribution Width Platelet Count 327 Mean Platelet Volume 10.4 Immature 1.200 H Granulocytes % Neutrophils % 90.5 H Lymphocytes % 4.9 L Monocytes % 3.4 Eosinophils % 0.0 Basophils % 0.0 Nucleated Red Blood 0.6 H Cells % Immature 0.120 H Granulocytes # Neutrophils # 9.4 H Lymphocytes # 0.5 L Monocytes # 0.4 Eosinophils # 0.0 Basophils # 0.0 Nucleated Red Blood 0.1 H Cells # Test 04/03/19 09:01 04/03/19 09:52 04/03/19 11:26 04/03/19 15:10 Bedside Glucose 131 134 92 Urine Color EVAN Urine Clarity TURBID A Urine pH 5.0 Urine Specific 1.016 [place] Urine Ketones TRACE A Urine Nitrite NEGATIVE Urine Bilirubin NEGATIVE Urine Urobilinogen NEGATIVE Urine Leukocyte 1+ H Esterase Urine Microscopic 51 H RBC Urine Microscopic 84 H WBC Urine Squamous FEW Epithelial Cells Urine Amorphous FEW A Crystals Urine Bacteria FEW A Urine Mucus FEW A Urine Hemoglobin 2+ H Urine Glucose 1+ H Urine Total Protein 3+ H Test 04/03/19 17:16 Bedside Glucose 110 Medications Medication Current Medications Aspirin (Aspirin) 325 mg DAILY PO Last administered on 04/03/19 08:39; Admin Dose 325 MG; Start 03/24/19 at 09:00 Atorvastatin Calcium (Lipitor) 40 mg QHS PO Last administered on 04/02/19 21:25; Admin Dose 40 MG; Start 03/23/19 at 21:00 Carvedilol (Coreg) 12.5 mg BID PO Last administered on 04/03/19 08:40; Admin Dose 12.5 MG; Start 03/23/19 at 21:00 Linagliptin (Tradjenta) 5 mg DAILY PO Last administered on 04/03/19 08:43; Admin Dose 5 MG; Start 03/24/19 at 09:00 Ondansetron HCl (Zofran Inj) 4 mg Q4H PRN IV NAUSEA AND/OR VOMITING Last administered on 03/28/19 20:28; Admin Dose 4 MG; Start 03/23/19 at 18:00 Hydromorphone HCl (Dilaudid) 2 mg Q4H PRN IV SEVERE PAIN LEVEL 7-10 Last administered on 03/31/19 17:00; Admin Dose 2 MG; Start 03/23/19 at 18:00 Miscellaneous Information 1 ea NOTE XX ; Start 03/23/19 at 18:30 Glucose (Glutose) 15 gm Q15M PRN PO DECREASED GLUCOSE; Start 03/23/19 at 18:30 Glucose (Glutose) 22.5 gm Q15M PRN PO DECREASED GLUCOSE; Start 03/23/19 at 18:30 Dextrose (D50w Syringe) 25 ml Q15M PRN IV DECREASED GLUCOSE; Start 03/23/19 at 18:30 Dextrose (D50w Syringe) 50 ml Q15M PRN IV DECREASED GLUCOSE; Start 03/23/19 at 18:30 Glucagon (Glucagen) 1 mg Q15M PRN IM DECREASED GLUCOSE; Start 03/23/19 at 18:30 Glucose (Glutose) 15 gm Q15M PRN BUCCAL DECREASED GLUCOSE; Start 03/23/19 at 18:30 Epoetin Joseph-epbx (Retacrit (Esrd)) 10,000 unit TuThSa@1700 SC Last administered on 04/02/19 16:38; Admin Dose 10,000 UNIT; Start 03/24/19 at 17:00 Acetaminophen/ Hydrocodone Bitart ([place] (5/325)) 1 tab Q6H PRN PO .MOD PAIN 4- 6 Last administered on 04/02/19 21:25; Admin Dose 1 TAB; Start 03/24/19 at 22:30 Albumin Human 100 ml @ 100 mls/hr WITH DIALYSIS PRN IV SBP <90 DURING DIALYSIS Last administered on 03/29/19 10:43; Admin Dose 100 MLS/HR; Start 03/27/19 at 12:00 Albuterol/ Ipratropium (Duoneb) 3 ml Q4HWA RESP THERAPY HHN Last administered on 04/03/19 16:52; Admin Dose 3 ML; Start 03/27/19 at 21:00 Heparin Sodium (Porcine) (Heparin (1000 Units/ml)) 3,000 unit AFTER DIALYSIS CATHETER Last administered on 04/03/19 15:44; Admin Dose 3,000 UNIT; Start 03/28/19 at 09:30 Magnesium Hydroxide (Milk Of Mag) 30 ml DAILY PRN PO CONSTIPATION Last administered on 03/28/19 20:48; Admin Dose 30 ML; Start 03/28/19 at 15:30 Heparin Sodium (Porcine) (Heparin (5000 Units/1ml)) 5,000 unit BID SC Last administered on 04/03/19 08:42; Admin Dose 5,000 UNIT; Start 03/29/19 at 21:00 Metoclopramide HCl (Reglan) 5 mg Q6 IV Last administered on 04/03/19 17:11; Admin Dose 5 MG; Start 03/29/19 at 18:00 Meropenem/Sodium Chloride 50 ml @ 100 mls/hr Q24H IVPB Last administered on 04/03/19 17:11; Admin Dose 100 MLS/HR; Start 03/29/19 at 18:00 Diagnostic Test (Pha) (Accu-Chek) 1 ea 02 XX Last administered on 04/02/19 01:49; Admin Dose 1 EA; Start 04/01/19 at 02:00 Methylprednisolone Sodium Succinate (Solu-Medrol) 60 mg Q8 IV Last administered on 04/03/19 15:13; Admin Dose 60 MG; Start 03/31/19 at 10:30 Insulin Aspart (Novolog Insulin Pen) NOVOLOG *MODERATE* ALGORITHM WITH MEALS BEDTIME SC Last administered on 04/02/19 16:46; Admin Dose 4 UNIT; Start 03/31/19 at 21:00 Metoclopramide HCl (Reglan) 5 mg Q6H PRN IV NAUSEA; Start 04/01/19 at 09:35 Amlodipine Besylate (Norvasc) 5 mg BID PO Last administered on 04/03/19 08:39; Admin Dose 5 MG; Start 04/01/19 at 21:00 Insulin Glargine (Lantus) 8 units DAILY@2000 SC Last administered on 04/02/19 21:44; Admin Dose 8 UNITS; Start 04/01/19 at 20:00 Chlorpromazine (Thorazine) 25 mg BID PRN PO hiccups; Start 04/01/19 at 20:00 Insulin Human NPH (Humulin N) 8 unit Q8 SC Last administered on 04/03/19 15:16; Admin Dose 8 UNIT; Start 04/02/19 at 14:00 Ranitidine HCl (Zantac) 300 mg QHS PO Last administered on 04/02/19 21:40; Admin Dose 300 MG; Start 04/02/19 at 21:00 Docusate Sodium/ Ferrous Fumarate (Angela-Sequels) 1 tab DAILY PO Last administered on 04/03/19 08:39; Admin Dose 1 TAB; Start 04/02/19 at 12:30; Stop 05/02/19 at 12:29 LUDMILA ANTOINE M.D. Apr 03, 2019 17:31
--- NOTE | 2019-04-03 17:53 | CONS ---
Assessment/Plan Assessment/Plan Hospital Course (Demo Recall) assessment/impression - acute hypoxic resp failure, probably multifactorial: first, fluid overload. Pt's oxygenation improved after undergoing dialysis and so fluid overload is a significant factor. Second, I suspect aspiration pneumonia/pneumonitis. Pt reportedly was having spells of congested cough upon arrival at ICU. Pt has h/o "excessive saliva production" since 08/2018 according to Pt's daughter in law. This increases a risk of aspiration pneumonia and/or pneumonitis. 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, Pt is scheduled to get R TMA once his acute il lness resolves - s/p R SFA to posterior tibial bypass using in situ greater saphenous vein from R thigh and calf on 03/23/2019 - former smoker - constipation - Pt completed pip/tazo (03/25/19-03/28/19) and IV vancomycin (03/25/19-03/30/19) recommendations: - I recommend 7 days of renally dosed meropenem (03/29/19-) - Pt was started on a trial of steroid by pulm service, will monitor WBC level management d/w Pt and his RN Rashaun the critical care time I took to care for this Pt today was from 1700 to 1730 Consultation Date/Type/Reason Admit Date/Time Mar 23, 2019 at 06:13 Initial Consult Date 03/28/19 Type of Consult ID Requesting Provider: JOSE PARRY MD Date/Time of Note DATE: 04/03/19 TIME: 17:53 Exam/Review of Systems Exam Vitals Vital Signs Date Temp Pulse Resp B/P (MAP) Pulse Ox O2 O2 Flow FiO2 Time Delivery Rate 04/03/19 80 13 131/80 100 High Flow 17:00 (97) 04/03/19 85 16:58 04/03/19 97.6 12:00 04/02/19 25.0 20:00 Intake and Output 04/02/19 04/02/19 04/03/19 1515:00 23:00 07:00 IntakeIntake Total 600 ml 290 ml 120 ml OutputOutput Total 100 ml 0 ml BalanceBalance 600 ml 190 ml 120 ml Results Result Diagram: 04/03/19 0439 04/03/19 0400 Results 24hrs Laboratory Tests Test 04/02/19 21:06 04/03/19 04:00 04/03/19 04:39 04/03/19 06:14 Bedside Glucose 152 132 Sodium Level 133 L Potassium Level 5.3 H Chloride Level 96 L Carbon Dioxide Level 26 Anion Gap 11 Blood Urea Nitrogen 80 H Creatinine 5.59 H Est Glomerular 10 L Filtrat Rate mL/min Glucose Level 132 # Calcium Level 8.5 White Blood Count 10.4 Red Blood Count 3.24 L Hemoglobin 9.5 L Hematocrit 29.8 L Mean Corpuscular 92.0 Volume Mean Corpuscular 29.3 Hemoglobin Mean Corpuscular 31.9 L Hemoglobin Concent Red Cell 14.4 Distribution Width Platelet Count 327 Mean Platelet Volume 10.4 Immature 1.200 H Granulocytes % Neutrophils % 90.5 H Lymphocytes % 4.9 L Monocytes % 3.4 Eosinophils % 0.0 Basophils % 0.0 Nucleated Red Blood 0.6 H Cells % Immature 0.120 H Granulocytes # Neutrophils # 9.4 H Lymphocytes # 0.5 L Monocytes # 0.4 Eosinophils # 0.0 Basophils # 0.0 Nucleated Red Blood 0.1 H Cells # Test 04/03/19 09:01 04/03/19 09:52 04/03/19 11:26 04/03/19 15:10 Bedside Glucose 131 134 92 Urine Color EVAN Urine Clarity TURBID A Urine pH 5.0 Urine Specific 1.016 [employer] Urine Ketones TRACE A Urine Nitrite NEGATIVE Urine Bilirubin NEGATIVE Urine Urobilinogen NEGATIVE Urine Leukocyte 1+ H Esterase Urine Microscopic 51 H RBC Urine Microscopic 84 H WBC Urine Squamous FEW Epithelial Cells Urine Amorphous FEW A Crystals Urine Bacteria FEW A Urine Mucus FEW A Urine Hemoglobin 2+ H Urine Glucose 1+ H Urine Total Protein 3+ H Test 04/03/19 17:16 Bedside Glucose 110 Medications Medication Current Medications Aspirin (Aspirin) 325 mg DAILY PO Last administered on 04/03/19at 08:39; Admin Dose 325 MG; Start 03/24/19 at 09:00 Atorvastatin Calcium (Lipitor) 40 mg QHS PO Last administered on 04/02/19 21:25; Admin Dose 40 MG; Start 03/23/19 at 21:00 Carvedilol (Coreg) 12.5 mg BID PO Last administered on 04/03/19 08:40; Admin Dose 12.5 MG; Start 03/23/19 at 21:00 Linagliptin (Tradjenta) 5 mg DAILY PO Last administered on 04/03/19 08:43; Admin Dose 5 MG; Start 03/24/19 at 09:00 Ondansetron HCl (Zofran Inj) 4 mg Q4H PRN IV NAUSEA AND/OR VOMITING Last administered on 03/28/19 20:28; Admin Dose 4 MG; Start 03/23/19 at 18:00 Hydromorphone HCl (Dilaudid) 2 mg Q4H PRN IV SEVERE PAIN LEVEL 7-10 Last administered on 03/31/19 17:00; Admin Dose 2 MG; Start 03/23/19 at 18:00 Miscellaneous Information 1 ea NOTE XX ; Start 03/23/19 at 18:30 Glucose (Glutose) 15 gm Q15M PRN PO DECREASED GLUCOSE; Start 03/23/19 at 18:30 Glucose (Glutose) 22.5 gm Q15M PRN PO DECREASED GLUCOSE; Start 03/23/19 at 18:30 Dextrose (D50w Syringe) 25 ml Q15M PRN IV DECREASED GLUCOSE; Start 03/23/19 at 18:30 Dextrose (D50w Syringe) 50 ml Q15M PRN IV DECREASED GLUCOSE; Start 03/23/19 at 18:30 Glucagon (Glucagen) 1 mg Q15M PRN IM DECREASED GLUCOSE; Start 03/23/19 at 18:30 Glucose (Glutose) 15 gm Q15M PRN BUCCAL DECREASED GLUCOSE; Start 03/23/19 at 18:30 Epoetin Joseph-epbx (Retacrit (Esrd)) 10,000 unit TuThSa@1700 SC Last administered on 04/02/19 16:38; Admin Dose 10,000 UNIT; Start 03/24/19 at 17:00 Acetaminophen/ Hydrocodone Bitart ([place] (5/325)) 1 tab Q6H PRN PO .MOD PAIN 4- 6 Last administered on 04/02/19 21:25; Admin Dose 1 TAB; Start 03/24/19 at 22:30 Albumin Human 100 ml @ 100 mls/hr WITH DIALYSIS PRN IV SBP <90 DURING DIALYSIS Last administered on 03/29/19 10:43; Admin Dose 100 MLS/HR; Start 03/27/19 at 12:00 Albuterol/ Ipratropium (Duoneb) 3 ml Q4HWA RESP THERAPY HHN Last administered on 04/03/19 16:52; Admin Dose 3 ML; Start 03/27/19 at 21:00 Heparin Sodium (Porcine) (Heparin (1000 Units/ml)) 3,000 unit AFTER DIALYSIS CATHETER Last administered on 04/03/19 15:44; Admin Dose 3,000 UNIT; Start 03/28/19 at 09:30 Magnesium Hydroxide (Milk Of Mag) 30 ml DAILY PRN PO CONSTIPATION Last administered on 03/28/19 20:48; Admin Dose 30 ML; Start 03/28/19 at 15:30 Heparin Sodium (Porcine) (Heparin (5000 Units/1ml)) 5,000 unit BID SC Last administered on 04/03/19 08:42; Admin Dose 5,000 UNIT; Start 03/29/19 at 21:00 Metoclopramide HCl (Reglan) 5 mg Q6 IV Last administered on 04/03/19 17:11; Admin Dose 5 MG; Start 03/29/19 at 18:00 Meropenem/Sodium Chloride 50 ml @ 100 mls/hr Q24H IVPB Last administered on 04/03/19 17:11; Admin Dose 100 MLS/HR; Start 03/29/19 at 18:00; Stop 04/05/19 at 17:59 Diagnostic Test (Pha) (Accu-Chek) 1 ea 02 XX Last administered on 04/02/19 01:49; Admin Dose 1 EA; Start 04/01/19 at 02:00 Methylprednisolone Sodium Succinate (Solu-Medrol) 60 mg Q8 IV Last administered on 04/03/19 15:13; Admin Dose 60 MG; Start 03/31/19 at 10:30 Insulin Aspart (Novolog Insulin Pen) NOVOLOG *MODERATE* ALGORITHM WITH MEALS BEDTIME SC Last administered on 04/02/19 16:46; Admin Dose 4 UNIT; Start 03/31/19 at 21:00 Metoclopramide HCl (Reglan) 5 mg Q6H PRN IV NAUSEA; Start 04/01/19 at 09:35 Amlodipine Besylate (Norvasc) 5 mg BID PO Last administered on 04/03/19 08:39; Admin Dose 5 MG; Start 04/01/19 at 21:00 Insulin Glargine (Lantus) 8 units DAILY@2000 SC Last administered on 04/02/19 21:44; Admin Dose 8 UNITS; Start 04/01/19 at 20:00 Chlorpromazine (Thorazine) 25 mg BID PRN PO hiccups; Start 04/01/19 at 20:00 Insulin Human NPH (Humulin N) 8 unit Q8 SC Last administered on 04/03/19 15:16; Admin Dose 8 UNIT; Start 04/02/19 at 14:00 Ranitidine HCl (Zantac) 300 mg QHS PO Last administered on 04/02/19at 21:40; Admin Dose 300 MG; Start 04/02/19 at 21:00 Docusate Sodium/ Ferrous Fumarate (Angela-Sequels) 1 tab DAILY PO Last administered on 04/03/19 08:39; Admin Dose 1 TAB; Start 04/02/19 at 12:30; Stop 05/02/19 at 12:29 LUDMILA ANTOINE M.D. Apr 03, 2019 17:53
[2019-04-03] MEDS: INSULIN GLARGINE [LANTus] (100 UNITS/ML) SYG SC SCH (20:36)
[2019-04-03] MEDS: ATORVASTATIN 40 MG TAB PO SCH (20:51)
[2019-04-03] MEDS: RANITIDINE 150 MG TAB PO SCH (20:52)
[2019-04-04] VITALS (33 sets, daily range): BP systolic 104–137; BP diastolic 51–70; PULSE 67–82; RESP 12–26
[2019-04-04] MEDS: HYDROCODONE/APAP (5/325) TAB PO PRN (01:50)
[2019-04-04] MEDS: ACCU-CHEK XX SCH (02:00)
[2019-04-04] MEDS: METHYLPREDNISOLONE 125 MG INJ IV SCH ×3 (05:55→22:21)
[2019-04-04] MEDS: METOCLOPRAMIDE 10 MG INJ IV SCH ×4 (05:56→18:06)
[2019-04-04] MEDS: NPH, HUMAN INSULIN ISOPHANE 3ML VIAL SC SCH ×3 (05:56→22:23)
[2019-04-04] MEDS: INSULIN ASPART [NOVOLOG] 3 ML PEN SC SCH ×4 (08:46→21:00)
[2019-04-04] MEDS: ALBUTEROL/IPRATROPIUM (NEB) 3 ML AMP HHN SCH ×5 (09:18→21:00)
[2019-04-04] MEDS: HEPARIN 5,000 UNIT/1 ML VIAL SC SCH ×2 (09:40→22:28)
[2019-04-04] MEDS: ASPIRIN 325 MG TAB PO SCH (09:42)
[2019-04-04] MEDS: LINAGLIPTIN 5 MG TABLET PO SCH (09:42)
[2019-04-04] MEDS: FERROUS FUMARATE (SR) TAB PO SCH (09:42)
[2019-04-04] MEDS: AMLODIPINE 5 MG TAB PO SCH ×2 (09:43→21:00)
--- NOTE | 2019-04-04 10:10 | CONS ---
Assessment/Plan Assessment/Plan Hospital Course (Demo Recall) assessment/impression - acute hypoxic resp failure, probably multifactorial: first, fluid overload. Pt's oxygenation improved after undergoing dialysis and so fluid overload is a significant factor. Second, we suspect aspiration pneumonia/pneumonitis. Pt reportedly was having spells of congested cough upon arrival at ICU. Pt has h/o "excessive saliva production" since 08/2018 according to Pt's daughter in law. This increases a risk of aspiration pneumonia and/or pneumonitis. 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 Somers Critical care time spent: 35 min Consultation Date/Type/Reason Admit Date/Time Mar 23, 2019 at 06:13 Initial Consult Date 03/28/19 Type of Consult Infectious Disease Requesting Provider: JOSE PARRY MD Date/Time of Note DATE: 04/04/19 TIME: 10:09 24 HR Interval Summary Free Text/Dictation [place] was removed yesterday. Pt was on Bipap overnight and changed to high flow O2 this AM at 40L. Denies pain, SOB. Has mild nausea. No vomiting or diarrhea. Exam/Review of Systems Exam Vitals Vital Signs Date Temp Pulse Resp B/P (MAP) Pulse Ox O2 O2 Flow FiO2 Time Delivery Rate 04/04/19 72 04:00 04/04/19 16 132/70 100 High Flow 03:00 (90) 04/04/19 65 01:43 04/03/19 97.6 12:00 04/02/19 25.0 20:00 Intake and Output 04/03/19 04/03/19 04/04/19 1515:00 23:00 07:00 IntakeIntake Total 60 ml 410 ml OutputOutput Total 200 ml 5055 ml BalanceBalance -140 ml -4645 ml Constitutional: alert, oriented, well developed, frail Psych: no complaints Head: normocephalic, atraumatic Eyes: nl conjunctiva, nl lids, nl sclera, other (wearing glasses) ENMT: nl external ears & nose, nl lips & teeth, nl nasal mucosa & septum, mucosa pink and moist Neck: supple Respiratory: crackles/rales, diminished breath sounds, other (On high flow O2 at 40L, FiO2 50% via NC) Cardiovascular: regular rate and rhythm, nl pulses; No edema Gastrointestinal: soft, non-tender; No distended Musculoskeletal: nl extremities to inspection Extremities: No edema Neurological: nl mental status, nl speech ([place]ic spekaing) Skin: nl turgor, other (R foot wrapped with Kerlix c/d/i; RLE dressing c/d/i) Results Result Diagram: 04/04/19 0418 04/04/19 0418 Results 24hrs Laboratory Tests Test 04/03/19 11:26 04/03/19 15:10 04/03/19 17:16 04/03/19 20:19 Bedside Glucose 134 92 110 158 Test 04/04/19 04:18 04/04/19 07:00 04/04/19 08:25 White Blood Count 12.6 #H Red Blood Count 3.30 L Hemoglobin 9.8 L Hematocrit 30.0 L Mean Corpuscular 90.9 Volume Mean Corpuscular 29.7 Hemoglobin Mean Corpuscular 32.7 Hemoglobin Concen t Red Cell 14.5 Distribution Width Platelet Count 320 Mean Platelet 10.6 H Volume Immature 1.100 H Granulocytes % Neutrophils % 87.5 H Lymphocytes % 3.4 L Monocytes % 7.8 Eosinophils % 0.0 Basophils % 0.2 Nucleated Red 1.3 H Blood Cells % Immature 0.140 H Granulocytes # Neutrophils # 11.1 H Lymphocytes # 0.4 L Monocytes # 1.0 H Eosinophils # 0.0 Basophils # 0.0 Nucleated Red 0.2 H Blood Cells # Sodium Level 133 L Potassium Level 5.3 H Chloride Level 97 Carbon Dioxide 27 Level Anion Gap 9 Blood Urea 66 H Nitrogen Creatinine 5.12 H Est Glomerular 11 L Filtrat Rate mL/min Glucose Level 162 Calcium Level 8.5 Phosphorus Level 4.9 Blood Gas Blood arterial Specimen Source Arterial Blood 04/04/2019 8:45:4 Date Drawn 8 AM Arterial Blood pH 7.434 (Temp corrected) Arterial Blood 36.6 pCO2 (Temp correct) Arterial Blood 85.3 pO2 (Temp corrected) Arterial Blood 24.0 HCO3 Arterial Blood 0 Base Excess Arterial Blood 96.0 Oxygen Saturation Lyle Test N/A Arterial Blood LB Gas Puncture Site Arterial 0.3 Blood Carboxyhemo globin Arterial Blood 0 Methemoglobin Blood Gas A-a O2 338.4 H Differential Oxyhemoglobin 95.7 Percent Blood Gas 37.0 Temperature Blood Gas HFNC Modality FiO2 65.0 Blood Gas Rickie SOMMERS Notified Whom Blood Gas 04/04/2019 9:07:3 Notified Time 7 AM Bedside Glucose 144 Imaging Imaging CXR 04/04/2019: Mild improvement in diffuse bilateral mixed alveolar and interstitial infiltrates concerning for multifocal pneumonia Medications Medication Current Medications Aspirin (Aspirin) 325 mg DAILY PO Last administered on 04/04/19 09:42; Admin Dose 325 MG; Start 03/24/19 at 09:00 Atorvastatin Calcium (Lipitor) 40 mg QHS PO Last administered on 04/03/19 20:51; Admin Dose 40 MG; Start 03/23/19 at 21:00 Carvedilol (Coreg) 12.5 mg BID PO Last administered on 04/04/19 09:43; Admin Dose 12.5 MG; Start 03/23/19 at 21:00 Linagliptin (Tradjenta) 5 mg DAILY PO Last administered on 04/04/19 09:42; A dmin Dose 5 MG; Start 03/24/19 at 09:00 Ondansetron HCl (Zofran Inj) 4 mg Q4H PRN IV NAUSEA AND/OR VOMITING Last administered on 03/28/19 20:28; Admin Dose 4 MG; Start 03/23/19 at 18:00 Hydromorphone HCl (Dilaudid) 2 mg Q4H PRN IV SEVERE PAIN LEVEL 7-10 Last administered on 03/31/19 17:00; Admin Dose 2 MG; Start 03/23/19 at 18:00 Miscellaneous Information 1 ea NOTE XX ; Start 03/23/19 at 18:30 Glucose (Glutose) 15 gm Q15M PRN PO DECREASED GLUCOSE; Start 03/23/19 at 18:30 Glucose (Glutose) 22.5 gm Q15M PRN PO DECREASED GLUCOSE; Start 03/23/19 at 18:30 Dextrose (D50w Syringe) 25 ml Q15M PRN IV DECREASED GLUCOSE; Start 03/23/19 at 18:30 Dextrose (D50w Syringe) 50 ml Q15M PRN IV DECREASED GLUCOSE; Start 03/23/19 at 18:30 Glucagon (Glucagen) 1 mg Q15M PRN IM DECREASED GLUCOSE; Start 03/23/19 at 18:30 Glucose (Glutose) 15 gm Q15M PRN BUCCAL DECREASED GLUCOSE; Start 03/23/19 at 18:30 Epoetin Joseph-epbx (Retacrit (Esrd)) 10,000 unit TuThSa@1700 SC Last administered on 04/02/19 16:38; Admin Dose 10,000 UNIT; Start 03/24/19 at 17:00 Acetaminophen/ Hydrocodone Bitart ([place] (5/325)) 1 tab Q6H PRN PO .MOD PAIN 4- 6 Last administered on 04/04/19 01:50; Admin Dose 1 TAB; Start 03/24/19 at 22:30 Albumin Human 100 ml @ 100 mls/hr WITH DIALYSIS PRN IV SBP <90 DURING DIALYSIS Last administered on 03/29/19 10:43; Admin Dose 100 MLS/HR; Start 03/27/19 at 12:00 Albuterol/ Ipratropium (Duoneb) 3 ml Q4HWA RESP THERAPY HHN Last administered on 04/04/19 09:18; Admin Dose 3 ML; Start 03/27/19 at 21:00 Heparin Sodium (Porcine) (Heparin (1000 Units/ml)) 3,000 unit AFTER DIALYSIS CATHETER Last administered on 7/19/19at 15:44; Admin Dose 3,000 UNIT; Start 03/28/19 at 09:30 Magnesium Hydroxide (Milk Of Mag) 30 ml DAILY PRN PO CONSTIPATION Last administered on 03/28/19at 20:48; Admin Dose 30 ML; Start 03/28/19 at 15:30 Heparin Sodium (Porcine) (Heparin (5000 Units/1ml)) 5,000 unit BID SC Last administered on 04/04/19 09:40; Admin Dose 5,000 UNIT; Start 03/29/19 at 21:00 Metoclopramide HCl (Reglan) 5 mg Q6 IV Last administered on 04/04/19 05:56; Admin Dose 5 MG; Start 03/29/19 at 18:00 Meropenem/Sodium Chloride 50 ml @ 100 mls/hr Q24H IVPB Last administered on 04/03/19 17:11; Admin Dose 100 MLS/HR; Start 03/29/19 at 18:00; Stop 04/05/19 at 17:59 Diagnostic Test (Pha) (Accu-Chek) 1 ea 02 XX Last administered on 04/02/19at 01:49; Admin Dose 1 EA; Start 04/01/19 at 02:00 Methylprednisolone Sodium Succinate (Solu-Medrol) 60 mg Q8 IV Last administered on 04/04/19 05:55; Admin Dose 60 MG; Start 03/31/19 at 10:30 Insulin Aspart (Novolog Insulin Pen) NOVOLOG *MODERATE* ALGORITHM WITH MEALS BEDTIME SC Last administered on 04/04/19 08:46; Admin Dose 2 UNIT; Start 03/31/19 at 21:00 Metoclopramide HCl (Reglan) 5 mg Q6H PRN IV NAUSEA; Start 04/01/19 at 09:35 Amlodipine Besylate (Norvasc) 5 mg BID PO Last administered on 04/04/19 09:43; Admin Dose 5 MG; Start 04/01/19 at 21:00 Insulin Glargine (Lantus) 8 units DAILY@2000 SC Last administered on 04/03/19at 20:36; Admin Dose 8 UNITS; Start 04/01/19 at 20:00 Chlorpromazine (Thorazine) 25 mg BID PRN PO hiccups; Start 04/01/19 at 20:00 Insulin Human NPH (Humulin N) 8 unit Q8 SC Last administered on 04/03/19at 15:16; Admin Dose 8 UNIT; Start 04/02/19 at 14:00 Ranitidine HCl (Zantac) 300 mg QHS PO Last administered on 04/03/19at 20:52; Admin Dose 300 MG; Start 04/02/19 at 21:00 Docusate Sodium/ Ferrous Fumarate (Angela-Sequels) 1 tab DAILY PO Last administered on 04/04/19at 09:42; Admin Dose 1 TAB; Start 04/02/19 at 12:30; Stop 05/02/19 at 12:29 LEONIE MIRANDA NP Apr 04, 2019 10:10
--- NOTE | 2019-04-04 10:29 | CONS ---
Consult Date/Type/Reason Admit Date/Time Mar 23, 2019 at 06:13 Initial Consult Date 03/28/19 Type of Consult Pulmonary Requesting Provider: JOSE PARRY MD Date/Time of Note DATE: 04/04/19 TIME: 10:27 Subjective Some clinical improvement off to hemodialysis with decreasing O2 requirements. Chest x-ray still remains unchanged. Objective Vital Signs Date Temp Pulse Resp B/P (MAP) Pulse Ox O2 O2 Flow FiO2 Time Delivery Rate 04/04/19 72 04:00 04/04/19 16 132/70 100 High Flow 03:00 (90) 04/04/19 65 01:43 04/03/19 97.6 12:00 04/02/19 25.0 20:00 Intake and Output 04/03/19 04/03/19 04/04/19 1515:00 23:00 07:00 IntakeIntake Total 60 ml 410 ml OutputOutput Total 200 ml 5055 ml BalanceBalance -140 ml -4645 ml Exam GENERAL: Elderly gentleman appears comfortable at rest no acute distress. High flow to 65% 40 L/min. VITAL SIGNS: per chart NECK: Supple. No JVD or lymphadenopathy. CARDIAC EXAM: S1, S2. No added sounds or murmurs. CHEST: Diminished air entry bilaterally with rales ABDOMEN: Soft, nontender. No guarding or rebound. EXTREMITIES: No cyanosis, clubbing or edema. NEUROLOGIC: Generalized weakness. Vent Setting Fraction of Inspired Oxygen pe: 65 Results/Medications Result Diagram: 04/04/19 0418 04/04/19 0418 Results 24 hrs Laboratory Tests Test 04/03/19 11:26 04/03/19 15:10 04/03/19 17:16 04/03/19 20:19 Bedside Glucose 134 92 110 158 Test 04/04/19 04:18 04/04/19 07:00 04/04/19 08:25 White Blood Count 12.6 #H Red Blood Count 3.30 L Hemoglobin 9.8 L Hematocrit 30.0 L Mean Corpuscular 90.9 Volume Mean Corpuscular 29.7 Hemoglobin Mean Corpuscular 32.7 Hemoglobin Concen t Red Cell 14.5 Distribution Width Platelet Count 320 Mean Platelet 10.6 H Volume Immature 1.100 H Granulocytes % Neutrophils % 87.5 H Lymphocytes % 3.4 L Monocytes % 7.8 Eosinophils % 0.0 Basophils % 0.2 Nucleated Red 1.3 H Blood Cells % Immature 0.140 H Granulocytes # Neutrophils # 11.1 H Lymphocytes # 0.4 L Monocytes # 1.0 H Eosinophils # 0.0 Basophils # 0.0 Nucleated Red 0.2 H Blood Cells # Sodium Level 133 L Potassium Level 5.3 H Chloride Level 97 Carbon Dioxide 27 Level Anion Gap 9 Blood Urea 66 H Nitrogen Creatinine 5.12 H Est Glomerular 11 L Filtrat Rate mL/min Glucose Level 162 Calcium Level 8.5 Phosphorus Level 4.9 Blood Gas Blood arterial Specimen Source Arterial Blood 04/04/2019 8:45:4 Date Drawn 8 AM Arterial Blood pH 7.434 (Temp corrected) Arterial Blood 36.6 pCO2 (Temp correct) Arterial Blood 85.3 pO2 (Temp corrected) Arterial Blood 24.0 HCO3 Arterial Blood 0 Base Excess Arterial Blood 96.0 Oxygen Saturation Lyle Test N/A Arterial Blood LB Gas Puncture Site Arterial 0.3 Blood Carboxyhemo globin Arterial Blood 0 Methemoglobin Blood Gas A-a O2 338.4 H Differential Oxyhemoglobin 95.7 Percent Blood Gas 37.0 Temperature Blood Gas HFNC Modality FiO2 65.0 Blood Gas Rickie SOMMERS Notified Whom Blood Gas 04/04/2019 9:07:3 Notified Time 7 AM Bedside Glucose 144 Medications Current Medications Aspirin (Aspirin) 325 mg DAILY PO Last administered on 04/04/19 09:42; Admin Dose 325 MG; Start 03/24/19 at 09:00 Atorvastatin Calcium (Lipitor) 40 mg QHS PO Last administered on 04/03/19 20:51; Admin Dose 40 MG; Start 03/23/19 at 21:00 Carvedilol (Coreg) 12.5 mg BID PO Last administered on 04/04/19 09:43; Admin Dose 12.5 MG; Start 03/23/19 at 21:00 Linagliptin (Tradjenta) 5 mg DAILY PO Last administered on 04/04/19 09:42; Admin Dose 5 MG; Start 03/24/19 at 09:00 Ondansetron HCl (Zofran Inj) 4 mg Q4H PRN IV NAUSEA AND/OR VOMITING Last administered on 03/28/19 20:28; Admin Dose 4 MG; Start 03/23/19 at 18:00 Hydromorphone HCl (Dilaudid) 2 mg Q4H PRN IV SEVERE PAIN LEVEL 7-10 Last administered on 03/31/19 17:00; Admin Dose 2 MG; Start 03/23/19 at 18:00 Miscellaneous Information 1 ea NOTE XX ; Start 03/23/19 at 18:30 Glucose (Glutose) 15 gm Q15M PRN PO DECREASED GLUCOSE; Start 03/23/19 at 18:30 Glucose (Glutose) 22.5 gm Q15M PRN PO DECREASED GLUCOSE; Start 03/23/19 at 18:30 Dextrose (D50w Syringe) 25 ml Q15M PRN IV DECREASED GLUCOSE; Start 03/23/19 at 18:30 Dextrose (D50w Syringe) 50 ml Q15M PRN IV DECREASED GLUCOSE; Start 03/23/19 at 18:30 Glucagon (Glucagen) 1 mg Q15M PRN IM DECREASED GLUCOSE; Start 03/23/19 at 18:30 Glucose (Glutose) 15 gm Q15M PRN BUCCAL DECREASED GLUCOSE; Start 03/23/19 at 18:30 Epoetin Joseph-epbx (Retacrit (Esrd)) 10,000 unit TuThSa@1700 SC Last administered on 04/02/19at 16:38; Admin Dose 10,000 UNIT; Start 03/24/19 at 17:00 Acetaminophen/ Hydrocodone Bitart ([place] (5/325)) 1 tab Q6H PRN PO .MOD PAIN 4- 6 Last administered on 04/04/19 01:50; Admin Dose 1 TAB; Start 03/24/19 at 22:30 Albumin Human 100 ml @ 100 mls/hr WITH DIALYSIS PRN IV SBP <90 DURING DIALYSIS Last administered on 03/29/19at 10:43; Admin Dose 100 MLS/HR; Start 03/27/19 at 12:00 Albuterol/ Ipratropium (Duoneb) 3 ml Q4HWA RESP THERAPY HHN Last administered on 04/04/19 09:18; Admin Dose 3 ML; Start 03/27/19 at 21:00 Heparin Sodium (Porcine) (Heparin (1000 Units/ml)) 3,000 unit AFTER DIALYSIS CATHETER Last administered on 04/03/19at 15:44; Admin Dose 3,000 UNIT; Start 03/28/19 at 09:30 Magnesium Hydroxide (Milk Of Mag) 30 ml DAILY PRN PO CONSTIPATION Last administered on 03/28/19 20:48; Admin Dose 30 ML; Start 03/28/19 at 15:30 Heparin Sodium (Porcine) (Heparin (5000 Units/1ml)) 5,000 unit BID SC Last administered on 04/04/19 09:40; Admin Dose 5,000 UNIT; Start 03/29/19 at 21:00 Metoclopramide HCl (Reglan) 5 mg Q6 IV Last administered on 04/04/19 05:56; Admin Dose 5 MG; Start 03/29/19 at 18:00 Meropenem/Sodium Chloride 50 ml @ 100 mls/hr Q24H IVPB Last administered on 04/03/19 17:11; Admin Dose 100 MLS/HR; Start 03/29/19 at 18:00; Stop 04/05/19 at 17:59 Diagnostic Test (Pha) (Accu-Chek) 1 ea 02 XX Last administered on 04/02/19 01:49; Admin Dose 1 EA; Start 04/01/19 at 02:00 Methylprednisolone Sodium Succinate (Solu-Medrol) 60 mg Q8 IV Last administered on 04/04/19 05:55; Admin Dose 60 MG; Start 03/31/19 at 10:30 Insulin Aspart (Novolog Insulin Pen) NOVOLOG *MODERATE* ALGORITHM WITH MEALS BEDTIME SC Last administered on 04/04/19 08:46; Admin Dose 2 UNIT; Start 03/31/19 at 21:00 Metoclopramide HCl (Reglan) 5 mg Q6H PRN IV NAUSEA; Start 04/01/19 at 09:35 Amlodipine Besylate (Norvasc) 5 mg BID PO Last administered on 04/04/19 09:43; Admin Dose 5 MG; Start 04/01/19 at 21:00 Insulin Glargine (Lantus) 8 units DAILY@2000 SC Last administered on 04/03/19 20:36; Admin Dose 8 UNITS; Start 04/01/19 at 20:00 Chlorpromazine (Thorazine) 25 mg BID PRN PO hiccups; Start 04/01/19 at 20:00 Insulin Human NPH (Humulin N) 8 unit Q8 SC Last administered on 04/03/19 15:16; Admin Dose 8 UNIT; Start 04/02/19 at 14:00 Ranitidine HCl (Zantac) 300 mg QHS PO Last administered on 04/03/19at 20:52; Admin Dose 300 MG; Start 04/02/19 at 21:00 Docusate Sodium/ Ferrous Fumarate (Angela-Sequels) 1 tab DAILY PO Last ad ministered on 04/04/19at 09:42; Admin Dose 1 TAB; Start 04/02/19 at 12:30; Stop 05/02/19 at 12:29 Assessment/Plan Hospital Course (Demo Recall) IMPRESSION: 1. Acute hypoxemic respiratory failure significant radiographic changes concerning for pulmonary edema versus opportunistic infection. 2. Acute on chronic renal failure, now requiring dialysis. 3. Peripheral vascular disease, status post revascularization. 4. Likely aspiration pneumonia as well. 5. Diabetes mellitus. 6. History of hypertension. 7. Benign prostatic hypertrophy. RECOMMENDATIONS: 1. High flow O2/bilevel ventilation decrease FiO2 as tolerated 2. Aspiration precautions continue antibiotics per infectious diseases currently on meropenem 3. We will decrease steroid dosing. 4. Hemodialysis per nephrology. Would suggest more volume removal today if tolerated Critical care time 40 minutes. Keep in ICU until FiO2 less than 50%. DMITRI PAIGE MD, [facility] Apr 04, 2019 10:29
--- NOTE | 2019-04-04 13:38 | PN ---
Date/Time of Note Date/Time of Note DATE: 04/04/19 TIME: 13:36 Assessment/Plan VTE Prophylaxis Risk score (from [facility])>0 risk: 6 SCD applied (from [facility]): No SCD contraindicated: bilateral LE trauma Pharmacological prophylaxis: heparin Lines/Catheters IV Catheter Type (from [facility] [place]): Central Line Central line still needed: Yes Urinary Cath still in place: Yes Reason Cath still needed: urinary retention Assessment/Plan Problems: (1) Chronic kidney disease, stage IV (severe) Status: Chronic Comment: He is going to be dialyzed again to remove more fluid which should help with her respiratory failure issues. As he continues to improve we can look toward moving him out of the intensive care unit to a telemetry floor. 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 (3) Gangrene of toe of right foot Status: Acute Comment: Vascular surgery to address this soon (4) Peripheral vascular disease of lower extremity Status: Chronic Comment: Status post bypass (5) Essential (primary) hypertension Status: Chronic Comment: Adequate control Result Diagram: 04/04/19 0418 04/04/19 0418 Results 24hrs Laboratory Tests Test 04/03/19 15:10 04/03/19 17:16 04/03/19 20:19 04/04/19 04:18 Bedside Glucose 92 110 158 White Blood Count 12.6 #H Red Blood Count 3.30 L Hemoglobin 9.8 L Hematocrit 30.0 L Mean Corpuscular 90.9 Volume Mean Corpuscular 29.7 Hemoglobin Mean Corpuscular 32.7 Hemoglobin Concen t Red Cell 14.5 Distribution Width Platelet Count 320 Mean Platelet 10.6 H Volume Immature 1.100 H Granulocytes % Neutrophils % 87.5 H Lymphocytes % 3.4 L Monocytes % 7.8 Eosinophils % 0.0 Basophils % 0.2 Nucleated Red 1.3 H Blood Cells % Immature 0.140 H Granulocytes # Neutrophils # 11.1 H Lymphocytes # 0.4 L Monocytes # 1.0 H Eosinophils # 0.0 Basophils # 0.0 Nucleated Red 0.2 H Blood Cells # Sodium Level 133 L Potassium Level 5.3 H Chloride Level 97 Carbon Dioxide 27 Level Anion Gap 9 Blood Urea 66 H Nitrogen Creatinine 5.12 H Est Glomerular 11 L Filtrat Rate mL/min Glucose Level 162 Calcium Level 8.5 Phosphorus Level 4.9 Test 04/04/19 07:00 04/04/19 08:25 04/04/19 12:34 Blood Gas Blood arterial Specimen Source Arterial Blood 04/04/2019 8:45:4 Date Drawn 8 AM Arterial Blood pH 7.434 (Temp corrected) Arterial Blood 36.6 pCO2 (Temp correct) Arterial Blood 85.3 pO2 (Temp corrected) Arterial Blood 24.0 HCO3 Arterial Blood 0 Base Excess Arterial Blood 96.0 Oxygen Saturation Lyle Test N/A Arterial Blood LB Gas Puncture Site Arterial 0.3 Blood Carboxyhemo globin Arterial Blood 0 Methemoglobin Blood Gas A-a O2 338.4 H Differential Oxyhemoglobin 95.7 Percent Blood Gas 37.0 Temperature Blood Gas HFNC Modality FiO2 65.0 Blood Gas Rickie SOMMERS Notified Whom Blood Gas 04/04/2019 9:07:3 Notified Time 7 AM Bedside Glucose 144 207 Subjective 24 Hr Interval Summary Free Text/Dictation Patient reports that he is feeling better. Still some baseline shortness of breath Constitutional: no complaints Respiratory: no complaints Cardiovascular: no complaints Gastrointestinal: no complaints Exam/Review of Systems Exam Vitals Vital Signs Date Temp Pulse Resp B/P (MAP) Pulse Ox O2 O2 Flow FiO2 Time Delivery Rate 04/04/19 97.9 74 15 108/52 100 High Flow 11:49 (70) 74 74 74 04/04/19 45 09:20 04/02/19 25.0 20:00 Intake and Output 04/03/19 04/03/19 04/04/19 1515:00 23:00 07:00 IntakeIntake Total 60 ml 410 ml OutputOutput Total 200 ml 5055 ml BalanceBalance -140 ml -4645 ml Constitutional: alert Psych: no complaints Respiratory: normal air movement, crackles/rales Cardiovascular: regular rate and rhythm, nl pulses Gastrointestinal: soft, nl liver, spleen, non-tender Results Results 24hrs Laboratory Tests Test 04/03/19 15:10 04/03/19 17:16 04/03/19 20:19 04/04/19 04:18 Bedside Glucose 92 110 158 White Blood Count 12.6 #H Red Blood Count 3.30 L Hemoglobin 9.8 L Hematocrit 30.0 L Mean Corpuscular 90.9 Volume Mean Corpuscular 29.7 Hemoglobin Mean Corpuscular 32.7 Hemoglobin Concen t Red Cell 14.5 Distribution Width Platelet Count 320 Mean Platelet 10.6 H Volume Immature 1.100 H Granulocytes % Neutrophils % 87.5 H Lymphocytes % 3.4 L Monocytes % 7.8 Eosinophils % 0.0 Basophils % 0.2 Nucleated Red 1.3 H Blood Cells % Immature 0.140 H Granulocytes # Neutrophils # 11.1 H Lymphocytes # 0.4 L Monocytes # 1.0 H Eosinophils # 0.0 Basophils # 0.0 Nucleated Red 0.2 H Blood Cells # Sodium Level 133 L Potassium Level 5.3 H Chloride Level 97 Carbon Dioxide 27 Level Anion Gap 9 Blood Urea 66 H Nitrogen Creatinine 5.12 H Est Glomerular 11 L Filtrat Rate mL/min Glucose Level 162 Calcium Level 8.5 Phosphorus Level 4.9 Test 04/04/19 07:00 04/04/19 08:25 04/04/19 12:34 Blood Gas Blood arterial Specimen Source Arterial Blood 04/04/2019 8:45:4 Date Drawn 8 AM Arterial Blood pH 7.434 (Temp corrected) Arterial Blood 36.6 pCO2 (Temp correct) Arterial Blood 85.3 pO2 (Temp corrected) Arterial Blood 24.0 HCO3 Arterial Blood 0 Base Excess Arterial Blood 96.0 Oxygen Saturation Lyle Test N/A Arterial Blood LB Gas Puncture Site Arterial 0.3 Blood Carboxyhemo globin Arterial Blood 0 Methemoglobin Blood Gas A-a O2 338.4 H Differential Oxyhemoglobin 95.7 Percent Blood Gas 37.0 Temperature Blood Gas HFNC Modality FiO2 65.0 Blood Gas Rickie SOMMERS Notified Whom Blood Gas 04/04/2019 9:07:3 Notified Time 7 AM Bedside Glucose 144 207 Medications Medication Current Medications Aspirin (Aspirin) 325 mg DAILY PO Last administered on 04/04/19 09:42; Admin Dose 325 MG; Start 03/24/19 at 09:00 Atorvastatin Calcium (Lipitor) 40 mg QHS PO Last administered on 04/03/19 20:51; Admin Dose 40 MG; Start 03/23/19 at 21:00 Carvedilol (Coreg) 12.5 mg BID PO Last administered on 04/04/19 09:43; Admin Dose 12.5 MG; Start 03/23/19 at 21:00 Linagliptin (Tradjenta) 5 mg DAILY PO Last administered on 04/04/19at 09:42; Admin Dose 5 MG; Start 03/24/19 at 09:00 Ondansetron HCl (Zofran Inj) 4 mg Q4H PRN IV NAUSEA AND/OR VOMITING Last ad ministered on 03/28/19at 20:28; Admin Dose 4 MG; Start 03/23/19 at 18:00 Hydromorphone HCl (Dilaudid) 2 mg Q4H PRN IV SEVERE PAIN LEVEL 7-10 Last administered on 03/31/19at 17:00; Admin Dose 2 MG; Start 03/23/19 at 18:00 Miscellaneous Information 1 ea NOTE XX ; Start 03/23/19 at 18:30 Glucose (Glutose) 15 gm Q15M PRN PO DECREASED GLUCOSE; Start 03/23/19 at 18:30 Glucose (Glutose) 22.5 gm Q15M PRN PO DECREASED GLUCOSE; Start 03/23/19 at 18:30 Dextrose (D50w Syringe) 25 ml Q15M PRN IV DECREASED GLUCOSE; Start 03/23/19 at 18:30 Dextrose (D50w Syringe) 50 ml Q15M PRN IV DECREASED GLUCOSE; Start 03/23/19 at 18:30 Glucagon (Glucagen) 1 mg Q15M PRN IM DECREASED GLUCOSE; Start 03/23/19 at 18:30 Glucose (Glutose) 15 gm Q15M PRN BUCCAL DECREASED GLUCOSE; Start 03/23/19 at 18:30 Epoetin Joseph-epbx (Retacrit (Esrd)) 10,000 unit TuThSa@1700 SC Last administered on 04/02/19at 16:38; Admin Dose 10,000 UNIT; Start 03/24/19 at 17:00 Acetaminophen/ Hydrocodone Bitart ([place] (5/325)) 1 tab Q6H PRN PO .MOD PAIN 4- 6 Last administered on 04/04/19at 01:50; Admin Dose 1 TAB; Start 03/24/19 at 22:30 Albumin Human 100 ml @ 100 mls/hr WITH DIALYSIS PRN IV SBP <90 DURING DIALYSIS Last administered on 03/29/19at 10:43; Admin Dose 100 MLS/HR; Start 03/27/19 at 12:00 Albuterol/ Ipratropium (Duoneb) 3 ml Q4HWA RESP THERAPY HHN Last administered on 04/04/19 09:18; Admin Dose 3 ML; Start 03/27/19 at 21:00 Heparin Sodium (Porcine) (Heparin (1000 Units/ml)) 3,000 unit AFTER DIALYSIS CATHETER Last administered on 04/03/19 15:44; Admin Dose 3,000 UNIT; Start 03/28/19 at 09:30 Magnesium Hydroxide (Milk Of Mag) 30 ml DAILY PRN PO CONSTIPATION Last administered on 03/28/19 20:48; Admin Dose 30 ML; Start 03/28/19 at 15:30 Heparin Sodium (Porcine) (Heparin (5000 Units/1ml)) 5,000 unit BID SC Last administered on 04/04/19 09:40; Admin Dose 5,000 UNIT; Start 03/29/19 at 21:00 Metoclopramide HCl (Reglan) 5 mg Q6 IV Last administered on 04/04/19 13:05; Admin Dose 5 MG; Start 03/29/19 at 18:00 Meropenem/Sodium Chloride 50 ml @ 100 mls/hr Q24H IVPB Last administered on 04/03/19 17:11; Admin Dose 100 MLS/HR; Start 03/29/19 at 18:00; Stop 04/05/19 at 17:59 Diagnostic Test (Pha) (Accu-Chek) 1 ea 02 XX Last administered on 04/02/19 01:49; Admin Dose 1 EA; Start 04/01/19 at 02:00 Methylprednisolone Sodium Succinate (Solu-Medrol) 60 mg Q8 IV Last administered on 04/04/19 05:55; Admin Dose 60 MG; Start 03/31/19 at 10:30 Insulin Aspart (Novolog Insulin Pen) NOVOLOG *MODERATE* ALGORITHM WITH MEALS BEDTIME SC Last administered on 04/04/19 13:08; Admin Dose 4 UNIT; Start 03/31/19 at 21:00 Metoclopramide HCl (Reglan) 5 mg Q6H PRN IV NAUSEA; Start 04/01/19 at 09:35 Amlodipine Besylate (Norvasc) 5 mg BID PO Last administered on 04/04/19 09:43; Admin Dose 5 MG; Start 04/01/19 at 21:00 Insulin Glargine (Lantus) 8 units DAILY@2000 SC Last administered on 04/03/19at 20:36; Admin Dose 8 UNITS; Start 04/01/19 at 20:00 Chlorpromazine (Thorazine) 25 mg BID PRN PO hiccups; Start 04/01/19 at 20:00 Insulin Human NPH (Humulin N) 8 unit Q8 SC Last administered on 04/03/19at 15:16; Admin Dose 8 UNIT; Start 04/02/19 at 14:00 Ranitidine HCl (Zantac) 300 mg QHS PO Last administered on 04/03/19at 20:52; Admin Dose 300 MG; Start 04/02/19 at 21:00 Docusate Sodium/ Ferrous Fumarate (Angela-Sequels) 1 tab DAILY PO Last administered on 04/04/19at 09:42; Admin Dose 1 TAB; Start 04/02/19 at 12:30; Stop 05/02/19 at 12:29 KYLEE POE MD Apr 04, 2019 13:38
--- NOTE | 2019-04-04 13:49 | CONS ---
Assessment/Plan Assessment/Plan Assessment/Plan (Daily) # SUPA Dialysis dependent, s/p HD yesterday Mild hyperkalemia Possible component of pulmonary edema Plan HD for today # Respiratory failure/ diffuse pulmonary infiltrates HD with UF today antibiotic per ID/pulmonary # DM Fair control Continue insulin # PVD/gangrene RLE toes s/p bypass Consultation Date/Type/Reason Admit Date/Time Mar 23, 2019 at 06:13 Initial Consult Date 03/28/19 Type of Consult Nephrology Requesting Provider: JOSE PARRY MD Date/Time of Note DATE: 04/04/19 TIME: 13:43 24 HR Interval Summary Free Text/Dictation Alert,comfortable Exam/Review of Systems Exam Vitals Vital Signs Date Temp Pulse Resp B/P (MAP) Pulse Ox O2 O2 Flow FiO2 Time Delivery Rate 04/04/19 97.9 74 15 108/52 100 High Flow 11:49 (70) 74 74 74 04/04/19 45 09:20 04/02/19 25.0 20:00 Intake and Output 04/03/19 04/03/19 04/04/19 1515:00 23:00 07:00 IntakeIntake Total 60 ml 410 ml OutputOutput Total 200 ml 5055 ml BalanceBalance -140 ml -4645 ml Constitutional: alert Head: normocephalic, atraumatic Neck: No jvd Respiratory: clear to auscultation Cardiovascular: regular rate and rhythm Gastrointestinal: soft, non-tender Extremities: edema (mild lower ext edema) Results Result Diagram: 04/04/19 0418 04/04/19 0418 Results 24hrs Laboratory Tests Test 04/03/19 15:10 04/03/19 17:16 04/03/19 20:19 04/04/19 04:18 Bedside Glucose 92 110 158 White Blood Count 12.6 #H Red Blood Count 3.30 L Hemoglobin 9.8 L Hematocrit 30.0 L Mean Corpuscular 90.9 Volume Mean Corpuscular 29.7 Hemoglobin Mean Corpuscular 32.7 Hemoglobin Concen t Red Cell 14.5 Distribution Width Platelet Count 320 Mean Platelet 10.6 H Volume Immature 1.100 H Granulocytes % Neutrophils % 87.5 H Lymphocytes % 3.4 L Monocytes % 7.8 Eosinophils % 0.0 Basophils % 0.2 Nucleated Red 1.3 H Blood Cells % Immature 0.140 H Granulocytes # Neutrophils # 11.1 H Lymphocytes # 0.4 L Monocytes # 1.0 H Eosinophils # 0.0 Basophils # 0.0 Nucleated Red 0.2 H Blood Cells # Sodium Level 133 L Potassium Level 5.3 H Chloride Level 97 Carbon Dioxide 27 Level Anion Gap 9 Blood Urea 66 H Nitrogen Creatinine 5.12 H Est Glomerular 11 L Filtrat Rate mL/min Glucose Level 162 Calcium Level 8.5 Phosphorus Level 4.9 Test 04/04/19 07:00 04/04/19 08:25 04/04/19 12:34 Blood Gas Blood arterial Specimen Source Arterial Blood 04/04/2019 8:45:4 Date Drawn 8 AM Arterial Blood pH 7.434 (Temp corrected) Arterial Blood 36.6 pCO2 (Temp correct) Arterial Blood 85.3 pO2 (Temp corrected) Arterial Blood 24.0 HCO3 Arterial Blood 0 Base Excess Arterial Blood 96.0 Oxygen Saturation Lyle Test N/A Arterial Blood LB Gas Puncture Site Arterial 0.3 Blood Carboxyhemo globin Arterial Blood 0 Methemoglobin Blood Gas A-a O2 338.4 H Differential Oxyhemoglobin 95.7 Percent Blood Gas 37.0 Temperature Blood Gas HFNC Modality FiO2 65.0 Blood Gas Rickie SOMMERS Notified Whom Blood Gas 04/04/2019 9:07:3 Notified Time 7 AM Bedside Glucose 144 207 Medications Medication Current Medications Aspirin (Aspirin) 325 mg DAILY PO Last administered on 04/04/19 09:42; Admin Dose 325 MG; Start 03/24/19 at 09:00 Atorvastatin Calcium (Lipitor) 40 mg QHS PO Last administered on 04/03/19 20:51; Admin Dose 40 MG; Start 03/23/19 at 21:00 Carvedilol (Coreg) 12.5 mg BID PO Last administered on 04/04/19 09:43; Admin D ose 12.5 MG; Start 03/23/19 at 21:00 Linagliptin (Tradjenta) 5 mg DAILY PO Last administered on 04/04/19 09:42; Admin Dose 5 MG; Start 03/24/19 at 09:00 Ondansetron HCl (Zofran Inj) 4 mg Q4H PRN IV NAUSEA AND/OR VOMITING Last administered on 03/28/19 20:28; Admin Dose 4 MG; Start 03/23/19 at 18:00 Hydromorphone HCl (Dilaudid) 2 mg Q4H PRN IV SEVERE PAIN LEVEL 7-10 Last administered on 03/31/19 17:00; Admin Dose 2 MG; Start 03/23/19 at 18:00 Miscellaneous Information 1 ea NOTE XX ; Start 03/23/19 at 18:30 Glucose (Glutose) 15 gm Q15M PRN PO DECREASED GLUCOSE; Start 03/23/19 at 18:30 Glucose (Glutose) 22.5 gm Q15M PRN PO DECREASED GLUCOSE; Start 03/23/19 at 18:30 Dextrose (D50w Syringe) 25 ml Q15M PRN IV DECREASED GLUCOSE; Start 03/23/19 at 18:30 Dextrose (D50w Syringe) 50 ml Q15M PRN IV DECREASED GLUCOSE; Start 03/23/19 at 18:30 Glucagon (Glucagen) 1 mg Q15M PRN IM DECREASED GLUCOSE; Start 03/23/19 at 18:30 Glucose (Glutose) 15 gm Q15M PRN BUCCAL DECREASED GLUCOSE; Start 03/23/19 at 18 :30 Epoetin Joseph-epbx (Retacrit (Esrd)) 10,000 unit TuThSa@1700 SC Last administered on 04/02/19at 16:38; Admin Dose 10,000 UNIT; Start 03/24/19 at 17:00 Acetaminophen/ Hydrocodone Bitart ([place] (5/325)) 1 tab Q6H PRN PO .MOD PAIN 4- 6 Last administered on 04/04/19at 01:50; Admin Dose 1 TAB; Start 03/24/19 at 22:30 Albumin Human 100 ml @ 100 mls/hr WITH DIALYSIS PRN IV SBP <90 DURING DIALYSIS Last administered on 03/29/19at 10:43; Admin Dose 100 MLS/HR; Start 03/27/19 at 12:00 Albuterol/ Ipratropium (Duoneb) 3 ml Q4HWA RESP THERAPY HHN Last administered on 04/04/19 09:18; Admin Dose 3 ML; Start 03/27/19 at 21:00 Heparin Sodium (Porcine) (Heparin (1000 Units/ml)) 3,000 unit AFTER DIALYSIS C ATHETER Last administered on 04/03/19at 15:44; Admin Dose 3,000 UNIT; Start 03/28/19 at 09:30 Magnesium Hydroxide (Milk Of Mag) 30 ml DAILY PRN PO CONSTIPATION Last administered on 03/28/19 20:48; Admin Dose 30 ML; Start 03/28/19 at 15:30 Heparin Sodium (Porcine) (Heparin (5000 Units/1ml)) 5,000 unit BID SC Last administered on 04/04/19 09:40; Admin Dose 5,000 UNIT; Start 03/29/19 at 21:00 Metoclopramide HCl (Reglan) 5 mg Q6 IV Last administered on 04/04/19 13:05; Admin Dose 5 MG; Start 03/29/19 at 18:00 Meropenem/Sodium Chloride 50 ml @ 100 mls/hr Q24H IVPB Last administered on 04/03/19 17:11; Admin Dose 100 MLS/HR; Start 03/29/19 at 18:00; Stop 04/05/19 at 17:59 Diagnostic Test (Pha) (Accu-Chek) 1 ea 02 XX Last administered on 04/02/19 01:49; Admin Dose 1 EA; Start 04/01/19 at 02:00 Methylprednisolone Sodium Succinate (Solu-Medrol) 60 mg Q8 IV Last administered on 04/04/19 05:55; Admin Dose 60 MG; Start 03/31/19 at 10:30 Insulin Aspart (Novolog Insulin Pen) NOVOLOG *MODERATE* ALGORITHM WITH MEALS BEDTIME SC Last administered on 04/04/19 13:08; Admin Dose 4 UNIT; Start 03/31/19 at 21:00 Metoclopramide HCl (Reglan) 5 mg Q6H PRN IV NAUSEA; Start 04/01/19 at 09:35 Amlodipine Besylate (Norvasc) 5 mg BID PO Last administered on 04/04/19 09:43; Admin Dose 5 MG; Start 04/01/19 at 21:00 Insulin Glargine (Lantus) 8 units DAILY@2000 SC Last administered on 04/03/19 20:36; Admin Dose 8 UNITS; Start 04/01/19 at 20:00 Chlorpromazine (Thorazine) 25 mg BID PRN PO hiccups; Start 04/01/19 at 20:00 Insulin Human NPH (Humulin N) 8 unit Q8 SC Last administered on 04/03/19 15:16; Admin Dose 8 UNIT; Start 04/02/19 at 14:00 Ranitidine HCl (Zantac) 300 mg QHS PO Last administered on 04/03/19at 20:52; Admin Dose 300 MG; Start 04/02/19 at 21:00 Docusate Sodium/ Ferrous Fumarate (Angela-Sequels) 1 tab DAILY PO Last administered on 04/04/19at 09:42; Admin Dose 1 TAB; Start 04/02/19 at 12:30; Stop 05/02/19 at 12:29 FIDENCIO CENTENO MD Apr 04, 2019 13:49
[2019-04-04] MEDS: MEROPENEM 500MG/50 ML (PMX) 50 ML IVPB SCH (18:06)
[2019-04-04] MEDS: ATORVASTATIN 40 MG TAB PO SCH (22:20)
[2019-04-04] MEDS: RANITIDINE 150 MG TAB PO SCH (22:30)
[2019-04-04] MEDS: INSULIN GLARGINE [LANTus] (100 UNITS/ML) SYG SC SCH (22:39)
[2019-04-04] MEDS: HEPARIN 1000 UNITS/ML 10 ML INJ CATHETER SCH (23:28)
[2019-04-05] VITALS (24 sets, daily range): BP systolic 111–156; BP diastolic 58–78; PULSE 62–78; RESP 5–22
[2019-04-05] MEDS: EPOETIN ALFA-EPBX (ESRD) 10,000 UNIT/ML VIAL SC SCH (01:01)
[2019-04-05] MEDS: HYDROmorphONE 2 MG/ML SYG IV PRN (01:09)
[2019-04-05] MEDS: ACCU-CHEK XX SCH (02:00)
[2019-04-05] MEDS: METHYLPREDNISOLONE 125 MG INJ IV SCH ×3 (05:27→21:24)
[2019-04-05] MEDS: METOCLOPRAMIDE 10 MG INJ IV SCH ×4 (05:28→17:14)
[2019-04-05] MEDS: NPH, HUMAN INSULIN ISOPHANE 3ML VIAL SC SCH ×3 (05:31→21:27)
[2019-04-05] MEDS: ONDANSETRON 4 MG INJ IV PRN (06:29)
[2019-04-05] MEDS: INSULIN ASPART [NOVOLOG] 3 ML PEN SC SCH ×4 (07:35→20:15)
[2019-04-05] MEDS: ALBUTEROL/IPRATROPIUM (NEB) 3 ML AMP HHN SCH ×4 (08:00→20:26)
--- NOTE | 2019-04-05 08:51 | PN ---
Date/Time of Note Date/Time of Note DATE: 04/05/19 TIME: 08:44 Assessment/Plan VTE Prophylaxis Risk score (from [facility] [place]0 risk: 8 SCD applied (from [facility] [place]): No SCD contraindicated: bilateral LE trauma Pharmacological prophylaxis: heparin Lines/Catheters IV Catheter Type (from [facility]): yang Urinary Cath still in place: No Assessment/Plan Problems: (1) Diabetes mellitus type 2 with complications Status: Chronic Comment: Blood sugar control is doing quite well. At this time continue with current treatment adjusting the NPH insulin which is being used with the steroids as the steroids are adjusted by pulmonary (2) Chronic kidney disease, stage IV (severe) Status: Chronic Comment: Is worsened and he is now dialysis dependent i.e. end-stage renal dise ase. And continue with dialysis. Will need to ultimately have him set up for outpatient dialysis when he gets better. (3) Benign prostatic hyperplasia with urinary obstruction Status: Chronic Comment: Add in alfuzocin due to the elevated void residual. (4) Essential (primary) hypertension Status: Chronic Comment: His blood pressure is adequately controlled however I would like to use less dihydropyridine calcium channel jillian more beta-jillian and ultimately given that were already a dialysis dependent and angiotensin II receptor jillian agent. 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 This is volume dependent and improved after dialysis. Steroids to be weaned as per pulmonary (8) Vitamin D deficiency Status: Chronic Comment: Being replaced Result Diagram: 04/05/19 0410 04/05/19 0410 Results 24hrs Laboratory Tests Test 04/04/19 12:34 04/04/19 15:37 04/04/19 17:53 04/04/19 22:20 Bedside Glucose 207 200 207 110 Test 04/05/19 04:10 04/05/19 08:18 White Blood Count 14.1 H Red Blood Count 3.48 L Hemoglobin 10.3 L Hematocrit 31.8 L Mean Corpuscular 91.4 Volume Mean Corpuscular 29.6 Hemoglobin Mean Corpuscular 32.4 Hemoglobin Concent Red Cell 14.8 H Distribution Width Platelet Count 340 Mean Platelet Volume 10.8 H Immature 1.500 H Granulocytes % Neutrophils % 91.8 H Lymphocytes % 2.4 L Monocytes % 4.1 Eosinophils % 0.0 Basophils % 0.2 Nucleated Red Blood 0.9 H Cells % Immature 0.210 H Granulocytes # Neutrophils # 12.9 H Lymphocytes # 0.3 L Monocytes # 0.6 Eosinophils # 0.0 Basophils # 0.0 Nucleated Red Blood 0.1 H Cells # Sodium Level 133 L Potassium Level 4.7 Chloride Level 96 L Carbon Dioxide Level 26 Anion Gap 11 Blood Urea Nitrogen 58 H Creatinine 4.41 H Est Glomerular 13 L Filtrat Rate mL/min Glucose Level 111 # Calcium Level 8.3 L Phosphorus Level 5.4 H Magnesium Level 2.4 Bedside Glucose 136 Subjective 24 Hr Interval Summary Free Text/Dictation Patient reports that after dialysis his breathing is significantly improved. Constitutional: no complaints (No fevers chills or sweats) Respiratory: no complaints (Reports shortness of breath is markedly better, denies wheezing or cough) Cardiovascular: no complaints (No chest pain no palpitations orthopnea no PND) Gastrointestinal: nausea (Otherwise no other symptoms) Genitourinary: no complaints (No urologic complaints, however please see nursing notes identifying a postvoid residual of over 170 cc) Skin: no complaints Exam/Review of Systems Exam Vitals Vital Signs Date Temp Pulse Resp B/P (MAP) Pulse Ox O2 O2 Flow FiO2 Time Delivery Rate 04/05/19 74 17 98 Nasal 20.0 35 08:01 Cannula 04/05/19 98.2 127/62 08:00 (83) Intake and Output 04/04/19 04/04/19 04/05/19 1515:00 23:00 07:00 IntakeIntake Total 260 ml 490 ml 50 ml OutputOutput Total 3000 ml 3400 ml BalanceBalance 260 ml -2510 ml -3350 ml Exam Much more comfortable today than yesterday Constitutional: alert, oriented Respiratory: clear to auscultation, normal air movement Cardiovascular: regular rate and rhythm, nl pulses Gastrointestinal: soft, nl liver, spleen, non-tender Results Results 24hrs Laboratory Tests Test 04/04/19 12:34 04/04/19 15:37 04/04/19 17:53 04/04/19 22:20 Bedside Glucose 207 200 207 110 Test 04/05/19 04:10 04/05/19 08:18 White Blood Count 14.1 H Red Blood Count 3.48 L Hemoglobin 10.3 L Hematocrit 31.8 L Mean Corpuscular 91.4 Volume Mean Corpuscular 29.6 Hemoglobin Mean Corpuscular 32.4 Hemoglobin Concent Red Cell 14.8 H Distribution Width Platelet Count 340 Mean Platelet Volume 10.8 H Immature 1.500 H Granulocytes % Neutrophils % 91.8 H Lymphocytes % 2.4 L Monocytes % 4.1 Eosinophils % 0.0 Basophils % 0.2 Nucleated Red Blood 0.9 H Cells % Immature 0.210 H Granulocytes # Neutrophils # 12.9 H Lymphocytes # 0.3 L Monocytes # 0.6 Eosinophils # 0.0 Basophils # 0.0 Nucleated Red Blood 0.1 H Cells # Sodium Level 133 L Potassium Level 4.7 Chloride Level 96 L Carbon Dioxide Level 26 Anion Gap 11 Blood Urea Nitrogen 58 H Creatinine 4.41 H Est Glomerular 13 L Filtrat Rate mL/min Glucose Level 111 # Calcium Level 8.3 L Phosphorus Level 5.4 H Magnesium Level 2.4 Bedside Glucose 136 Medications Medication Current Medications Aspirin (Aspirin) 325 mg DAILY PO Last administered on 04/04/19 09:42; Admin Dose 325 MG; Start 03/24/19 at 09:00 Atorvastatin Calcium (Lipitor) 40 mg QHS PO Last administered on 04/04/19at 22:20; Admin Dose 40 MG; Start 03/23/19 at 21:00 Linagliptin (Tradjenta) 5 mg DAILY PO Last administered on 04/04/19 09:42; Admin Dose 5 MG; Start 03/24/19 at 09:00 Ondansetron HCl (Zofran Inj) 4 mg Q4H PRN IV NAUSEA AND/OR VOMITING Last administered on 04/05/19 06:29; Admin Dose 4 MG; Start 03/23/19 at 18:00 Hydromorphone HCl (Dilaudid) 2 mg Q4H PRN IV SEVERE PAIN LEVEL 7-10 Last administered on 04/05/19 01:09; Admin Dose 2 MG; Start 03/23/19 at 18:00 Miscellaneous Information 1 ea NOTE XX ; Start 03/23/19 at 18:30 Glucose (Glutose) 15 gm Q15M PRN PO DECREASED GLUCOSE; Start 03/23/19 at 18:30 Glucose (Glutose) 22.5 gm Q15M PRN PO DECREASED GLUCOSE; Start 03/23/19 at 18:30 Dextrose (D50w Syringe) 25 ml Q15M PRN IV DECREASED GLUCOSE; Start 03/23/19 at 18:30 Dextrose (D50w Syringe) 50 ml Q15M PRN IV DECREASED GLUCOSE; Start 03/23/19 at 18:30 Glucagon (Glucagen) 1 mg Q15M PRN IM DECREASED GLUCOSE; Start 03/23/19 at 18:30 Glucose (Glutose) 15 gm Q15M PRN BUCCAL DECREASED GLUCOSE; Start 03/23/19 at 18 :30 Epoetin Joseph-epbx (Retacrit (Esrd)) 10,000 unit TuThSa@1700 SC Last administered on 04/05/19 01:01; Admin Dose 10,000 UNIT; Start 03/24/19 at 17:00 Acetaminophen/ Hydrocodone Bitart ([place] (5/325)) 1 tab Q6H PRN PO .MOD PAIN 4- 6 Last administered on 04/04/19 01:50; Admin Dose 1 TAB; Start 03/24/19 at 22:30 Albumin Human 100 ml @ 100 mls/hr WITH DIALYSIS PRN IV SBP <90 DURING DIALYSIS Last administered on 03/29/19 10:43; Admin Dose 100 MLS/HR; Start 03/27/19 at 12:00 Albuterol/ Ipratropium (Duoneb) 3 ml Q4HWA RESP THERAPY HHN Last administered on 04/05/19 08:00; Admin Dose 3 ML; Start 03/27/19 at 21:00 Heparin Sodium (Porcine) (Heparin (1000 Units/ml)) 3,000 unit AFTER DIALYSIS C ATHETER Last administered on 04/04/19 23:28; Admin Dose 3,000 UNIT; Start 03/28/19 at 09:30 Magnesium Hydroxide (Milk Of Mag) 30 ml DAILY PRN PO CONSTIPATION Last administered on 7/13/19at 20:48; Admin Dose 30 ML; Start 03/28/19 at 15:30 Heparin Sodium (Porcine) (Heparin (5000 Units/1ml)) 5,000 unit BID SC Last administered on 04/04/19 22:28; Admin Dose 5,000 UNIT; Start 03/29/19 at 21:00 Metoclopramide HCl (Reglan) 5 mg Q6 IV Last administered on 04/05/19 05:28; Admin Dose 5 MG; Start 03/29/19 at 18:00 Meropenem/Sodium Chloride 50 ml @ 100 mls/hr Q24H IVPB Last administered on 04/04/19 18:06; Admin Dose 100 MLS/HR; Start 03/29/19 at 18:00; Stop 04/05/19 at 17:59 Diagnostic Test (Pha) (Accu-Chek) 1 ea 02 XX Last administered on 04/02/19at 01:49; Admin Dose 1 EA; Start 04/01/19 at 02:00 Methylprednisolone Sodium Succinate (Solu-Medrol) 60 mg Q8 IV Last administered on 04/05/19 05:27; Admin Dose 60 MG; Start 03/31/19 at 10:30 Insulin Aspart (Novolog Insulin Pen) NOVOLOG *MODERATE* ALGORITHM WITH MEALS BEDTIME SC Last administered on 04/04/19 17:58; Admin Dose 4 UNIT; Start 03/31/19 at 21:00 Metoclopramide HCl (Reglan) 5 mg Q6H PRN IV NAUSEA; Start 04/01/19 at 09:35 Insulin Glargine (Lantus) 8 units DAILY@2000 SC Last administered on 04/04/19at 22:39; Admin Dose 8 UNITS; Start 04/01/19 at 20:00 Chlorpromazine (Thorazine) 25 mg BID PRN PO hiccups; Start 04/01/19 at 20:00 Insulin Human NPH (Humulin N) 8 unit Q8 SC Last administered on 04/05/19 05:31; Admin Dose 8 UNIT; Start 04/02/19 at 14:00 Ranitidine HCl (Zantac) 300 mg QHS PO Last administered on 04/04/19at 22:30; Admin Dose 300 MG; Start 04/02/19 at 21:00 Docusate Sodium/ Ferrous Fumarate (Angela-Sequels) 1 tab DAILY PO Last administered on 04/04/19at 09:42; Admin Dose 1 TAB; Start 04/02/19 at 12:30; Stop 05/02/19 at 12:29 Amlodipine Besylate (Norvasc) 2.5 mg BID PO ; Start 04/05/19 at 09:00; Status UNV Carvedilol (Coreg) 18.75 mg BID PO ; Start 04/05/19 at 09:00; Status UNV Alfuzosin HCl (Uroxatral) 10 mg HS PO ; Start 04/05/19 at 21:00; Status UNV KYLEE POE MD Apr 05, 2019 08:51
[2019-04-05] MEDS ORDERED: AMLODIPINE 2.5 MG TAB PO SCH (09:00)
--- NOTE | 2019-04-05 10:11 | CONS ---
Consult Date/Type/Reason Admit Date/Time Mar 23, 2019 at 06:13 Initial Consult Date 03/28/19 Type of Consult Pulmonary Requesting Provider: JOSE PARRY MD Date/Time of Note DATE: 04/05/19 TIME: 10:10 Subjective Improved oxygenation with hemodialysis yesterday now on nasal cannula O2. Objective Vital Signs Date Temp Pulse Resp B/P (MAP) Pulse Ox O2 O2 Flow FiO2 Time Delivery Rate 04/05/19 3.0 09:00 04/05/19 68 17 133/62 98 Mechanical 09:00 (85) Ventilator 04/05/19 35 08:01 04/05/19 98.2 08:00 Intake and Output 04/04/19 04/04/19 04/05/19 1515:00 23:00 07:00 IntakeIntake Total 260 ml 490 ml 50 ml OutputOutput Total 3000 ml 3400 ml BalanceBalance 260 ml -2510 ml -3350 ml Exam GENERAL: Elderly gentleman appears comfortable at rest no acute distress. VITAL SIGNS: per chart NECK: Supple. No JVD or lymphadenopathy. CARDIAC EXAM: S1, S2. No added sounds or murmurs. CHEST: Diminished air entry bilaterally with rales ABDOMEN: Soft, nontender. No guarding or rebound. EXTREMITIES: No cyanosis, clubbing or edema. NEUROLOGIC: Generalized weakness. Vent Setting Fraction of Inspired Oxygen pe: 35 Results/Medications Result Diagram: 04/05/19 0410 04/05/19 0410 Results 24 hrs Laboratory Tests Test 04/04/19 12:34 04/04/19 15:37 04/04/19 17:53 04/04/19 22:20 Bedside Glucose 207 200 207 110 Test 04/05/19 04:10 04/05/19 08:18 White Blood Count 14.1 H Red Blood Count 3.48 L Hemoglobin 10.3 L Hematocrit 31.8 L Mean Corpuscular 91.4 Volume Mean Corpuscular 29.6 Hemoglobin Mean Corpuscular 32.4 Hemoglobin Concent Red Cell 14.8 H Distribution Width Platelet Count 340 Mean Platelet Volume 10.8 H Immature 1.500 H Granulocytes % Neutrophils % 91.8 H Lymphocytes % 2.4 L Monocytes % 4.1 Eosinophils % 0.0 Basophils % 0.2 Nucleated Red Blood 0.9 H Cells % Immature 0.210 H Granulocytes # Neutrophils # 12.9 H Lymphocytes # 0.3 L Monocytes # 0.6 Eosinophils # 0.0 Basophils # 0.0 Nucleated Red Blood 0.1 H Cells # Sodium Level 133 L Potassium Level 4.7 Chloride Level 96 L Carbon Dioxide Level 26 Anion Gap 11 Blood Urea Nitrogen 58 H Creatinine 4.41 H Est Glomerular 13 L Filtrat Rate mL/min Glucose Level 111 # Calcium Level 8.3 L Phosphorus Level 5.4 H Magnesium Level 2.4 Bedside Glucose 136 Medications Current Medications Aspirin (Aspirin) 325 mg DAILY PO Last administered on 04/04/19 09:42; Admin Dose 325 MG; Start 03/24/19 at 09:00 Atorvastatin Calcium (Lipitor) 40 mg QHS PO Last administered on 04/04/19 22:20; Admin Dose 40 MG; Start 03/23/19 at 21:00 Linagliptin (Tradjenta) 5 mg DAILY PO Last administered on 04/04/19 09:42; Admin Dose 5 MG; Start 03/24/19 at 09:00 Ondansetron HCl (Zofran Inj) 4 mg Q4H PRN IV NAUSEA AND/OR VOMITING Last administered on 04/05/19at 06:29; Admin Dose 4 MG; Start 03/23/19 at 18:00 Hydromorphone HCl (Dilaudid) 2 mg Q4H PRN IV SEVERE PAIN LEVEL 7-10 Last administered on 04/05/19at 01:09; Admin Dose 2 MG; Start 03/23/19 at 18:00 Miscellaneous Information 1 ea NOTE XX ; Start 03/23/19 at 18:30 Glucose (Glutose) 15 gm Q15M PRN PO DECREASED GLUCOSE; Start 03/23/19 at 18:30 Glucose (Glutose) 22.5 gm Q15M PRN PO DECREASED GLUCOSE; Start 03/23/19 at 18:30 Dextrose (D50w Syringe) 25 ml Q15M PRN IV DECREASED GLUCOSE; Start 03/23/19 at 18:30 Dextrose (D50w Syringe) 50 ml Q15M PRN IV DECREASED GLUCOSE; Start 03/23/19 at 18:30 Glucagon (Glucagen) 1 mg Q15M PRN IM DECREASED GLUCOSE; Start 03/23/19 at 18:30 Glucose (Glutose) 15 gm Q15M PRN BUCCAL DECREASED GLUCOSE; Start 03/23/19 at 18: 30 Epoetin Joseph-epbx (Retacrit (Esrd)) 10,000 unit TuThSa@1700 SC Last administered on 04/05/19 01:01; Admin Dose 10,000 UNIT; Start 03/24/19 at 17:00 Acetaminophen/ Hydrocodone Bitart ([place] (5/325)) 1 tab Q6H PRN PO .MOD PAIN 4- 6 Last administered on 04/04/19 01:50; Admin Dose 1 TAB; Start 03/24/19 at 22:30 Albumin Human 100 ml @ 100 mls/hr WITH DIALYSIS PRN IV SBP <90 DURING DIALYSIS Last administered on 03/29/19 10:43; Admin Dose 100 MLS/HR; Start 03/27/19 at 12:00 Albuterol/ Ipratropium (Duoneb) 3 ml Q4HWA RESP THERAPY HHN Last administered on 04/05/19 08:00; Admin Dose 3 ML; Start 03/27/19 at 21:00 Heparin Sodium (Porcine) (Heparin (1000 Units/ml)) 3,000 unit AFTER DIALYSIS CA THETER Last administered on 04/04/19 23:28; Admin Dose 3,000 UNIT; Start 03/28/19 at 09:30 Magnesium Hydroxide (Milk Of Mag) 30 ml DAILY PRN PO CONSTIPATION Last administered on 03/28/19 20:48; Admin Dose 30 ML; Start 03/28/19 at 15:30 Heparin Sodium (Porcine) (Heparin (5000 Units/1ml)) 5,000 unit BID SC Last administered on 04/04/19 22:28; Admin Dose 5,000 UNIT; Start 03/29/19 at 21:00 Metoclopramide HCl (Reglan) 5 mg Q6 IV Last administered on 04/05/19 05:28; Admin Dose 5 MG; Start 03/29/19 at 18:00 Meropenem/Sodium Chloride 50 ml @ 100 mls/hr Q24H IVPB Last administered on 04/04/19 18:06; Admin Dose 100 MLS/HR; Start 03/29/19 at 18:00; Stop 04/05/19 at 17:59 Diagnostic Test (Pha) (Accu-Chek) 1 ea 02 XX Last administered on 04/02/19 01:49; Admin Dose 1 EA; Start 04/01/19 at 02:00 Methylprednisolone Sodium Succinate (Solu-Medrol) 60 mg Q8 IV Last administered on 04/05/19at 05:27; Admin Dose 60 MG; Start 03/31/19 at 10:30 Insulin Aspart (Novolog Insulin Pen) NOVOLOG *MODERATE* ALGORITHM WITH MEALS BEDTIME SC Last administered on 04/04/19at 17:58; Admin Dose 4 UNIT; Start 03/31/19 at 21:00 Metoclopramide HCl (Reglan) 5 mg Q6H PRN IV NAUSEA; Start 04/01/19 at 09:35 Insulin Glargine (Lantus) 8 units DAILY@2000 SC Last administered on 04/04/19at 22:39; Admin Dose 8 UNITS; Start 04/01/19 at 20:00 Chlorpromazine (Thorazine) 25 mg BID PRN PO hiccups; Start 04/01/19 at 20:00 Insulin Human NPH (Humulin N) 8 unit Q8 SC Last administered on 04/05/19at 05:31; Admin Dose 8 UNIT; Start 04/02/19 at 14:00 Ranitidine HCl (Zantac) 300 mg QHS PO Last administered on 04/04/19at 22:30; Admin Dose 300 MG; Start 04/02/19 at 21:00 Docusate Sodium/ Ferrous Fumarate (Angela-Sequels) 1 tab DAILY PO Last administered on 04/04/19at 09:42; Admin Dose 1 TAB; Start 04/02/19 at 12:30; Stop 05/02/19 at 12:29 Carvedilol (Coreg) 18.75 mg BID PO ; Start 04/05/19 at 09:00 Alfuzosin HCl (Uroxatral) 10 mg HS PO ; Start 04/05/19 at 21:00 Losartan Potassium (Cozaar) 25 mg QHS PO ; Start 04/05/19 at 21:00 Assessment/Plan Hospital Course (Demo Recall) IMPRESSION: 1. Acute hypoxemic respiratory failure significant radiographic changes concerning for pulmonary edema versus opportunistic infection. 2. Acute on chronic renal failure, now requiring dialysis. 3. Peripheral vascular disease, status post revascularization. 4. Likely aspiration pneumonia as well. 5. Diabetes mellitus. 6. History of hypertension. 7. Benign prostatic hypertrophy. RECOMMENDATIONS: 1. Off high flow O2 now on regular nasal cannula. 2. Aspiration precautions continue antibiotics per infectious diseases currently on meropenem 3. We will decrease steroid dosing. 4. Hemodialysis per nephrology. Continue with volume removal as tolerated. Critical care time 40 minutes. Stable for transfer to telemetry. DMITRI PAIGE MD, [facility] Apr 05, 2019 10:11
[2019-04-05] MEDS: FERROUS FUMARATE (SR) TAB PO SCH (10:39)
[2019-04-05] MEDS: ASPIRIN 325 MG TAB PO SCH (10:39)
[2019-04-05] MEDS: LINAGLIPTIN 5 MG TABLET PO SCH (10:40)
[2019-04-05] MEDS: HEPARIN 5,000 UNIT/1 ML VIAL SC SCH ×2 (10:42→21:28)
--- NOTE | 2019-04-05 13:31 | CONS ---
Assessment/Plan Assessment/Plan Assessment/Plan (Daily) # SUPA Dialysis dependent, s/p HD yesterday with 3L UF Appears euvolemic Plan HD for tomorrow For tunneled catheter placement, ? tomorrow # Respiratory failure/ diffuse pulmonary infiltrates Now on 2 L O2 Improved post HD antibiotics per ID/pulmonary # DM Fair control Continue insulin # PVD/gangrene RLE toes s/p bypass Consultation Date/Type/Reason Admit Date/Time Mar 23, 2019 at 06:13 Initial Consult Date 03/28/19 Type of Consult Nephrology Requesting Provider: JOSE PARRY MD Date/Time of Note DATE: 04/05/19 TIME: 13:29 24 HR Interval Summary Free Text/Dictation alert, no complaints Exam/Review of Systems Exam Vitals Vital Signs Date Temp Pulse Resp B/P (MAP) Pulse Ox O2 O2 Flow FiO2 Time Delivery Rate 04/05/19 73 18 96 Nasal 3.0 12:16 Cannula 04/05/19 97.8 140/78 12:00 (98) 04/05/19 35 08:01 Intake and Output 04/04/19 04/04/19 04/05/19 1515:00 23:00 07:00 IntakeIntake Total 260 ml 490 ml 50 ml OutputOutput Total 3000 ml 3400 ml BalanceBalance 260 ml -2510 ml -3350 ml Head: normocephalic, atraumatic Neck: supple; No jvd Respiratory: clear to auscultation Cardiovascular: regular rate and rhythm Gastrointestinal: soft, non-tender Extremities: No edema Results Result Diagram: 04/05/19 0410 04/05/19 0410 Results 24hrs Laboratory Tests Test 04/04/19 15:37 04/04/19 17:53 04/04/19 22:20 04/05/19 04:10 Bedside Glucose 200 207 110 White Blood Count 14.1 H Red Blood Count 3.48 L Hemoglobin 10.3 L Hematocrit 31.8 L Mean Corpuscular 91.4 Volume Mean Corpuscular 29.6 Hemoglobin Mean Corpuscular 32.4 Hemoglobin Concent Red Cell 14.8 H Distribution Width Platelet Count 340 Mean Platelet Volume 10.8 H Immature 1.500 H Granulocytes % Neutrophils % 91.8 H Lymphocytes % 2.4 L Monocytes % 4.1 Eosinophils % 0.0 Basophils % 0.2 Nucleated Red Blood 0.9 H Cells % Immature 0.210 H Granulocytes # Neutrophils # 12.9 H Lymphocytes # 0.3 L Monocytes # 0.6 Eosinophils # 0.0 Basophils # 0.0 Nucleated Red Blood 0.1 H Cells # Sodium Level 133 L Potassium Level 4.7 Chloride Level 96 L Carbon Dioxide Level 26 Anion Gap 11 Blood Urea Nitrogen 58 H Creatinine 4.41 H Est Glomerular 13 L Filtrat Rate mL/min Glucose Level 111 # Calcium Level 8.3 L Phosphorus Level 5.4 H Magnesium Level 2.4 Test 04/05/19 08:18 04/05/19 11:59 Bedside Glucose 136 186 Medications Medication Current Medications Aspirin (Aspirin) 325 mg DAILY PO Last administered on 04/05/19at 10:39; Admin Dose 325 MG; Start 03/24/19 at 09:00 Atorvastatin Calcium (Lipitor) 40 mg QHS PO Last administered on 04/04/19at 22:20; Admin Dose 40 MG; Start 03/23/19 at 21:00 Linagliptin (Tradjenta) 5 mg DAILY PO Last administered on 04/05/19at 10:40; Admin Dose 5 MG; Start 03/24/19 at 09:00 Ondansetron HCl (Zofran Inj) 4 mg Q4H PRN IV NAUSEA AND/OR VOMITING Last administered on 04/05/19at 06:29; Admin Dose 4 MG; Start 03/23/19 at 18:00 Hydromorphone HCl (Dilaudid) 2 mg Q4H PRN IV SEVERE PAIN LEVEL 7-10 Last administered on 04/05/19at 01:09; Admin Dose 2 MG; Start 03/23/19 at 18:00 Miscellaneous Information 1 ea NOTE XX ; Start 03/23/19 at 18:30 Glucose (Glutose) 15 gm Q15M PRN PO DECREASED GLUCOSE; Start 03/23/19 at 18:30 Glucose (Glutose) 22.5 gm Q15M PRN PO DECREASED GLUCOSE; Start 03/23/19 at 18:30 Dextrose (D50w Syringe) 25 ml Q15M PRN IV DECREASED GLUCOSE; Start 03/23/19 at 18:30 Dextrose (D50w Syringe) 50 ml Q15M PRN IV DECREASED GLUCOSE; Start 03/23/19 at 18:30 Glucagon (Glucagen) 1 mg Q15M PRN IM DECREASED GLUCOSE; Start 03/23/19 at 18:30 Glucose (Glutose) 15 gm Q15M PRN BUCCAL DECREASED GLUCOSE; Start 03/23/19 at 18:30 Epoetin Joseph-epbx (Retacrit (Esrd)) 10,000 unit TuThSa@1700 SC Last administered on 04/05/19 01:01; Admin Dose 10,000 UNIT; Start 03/24/19 at 17:00 Acetaminophen/ Hydrocodone Bitart ([place] (5/325)) 1 tab Q6H PRN PO .MOD PAIN 4- 6 Last administered on 04/04/19 01:50; Admin Dose 1 TAB; Start 03/24/19 at 22:30 Albumin Human 100 ml @ 100 mls/hr WITH DIALYSIS PRN IV SBP <90 DURING DIALYSIS Last administered on 03/29/19 10:43; Admin Dose 100 MLS/HR; Start 03/27/19 at 12:00 Albuterol/ Ipratropium (Duoneb) 3 ml Q4HWA RESP THERAPY HHN Last administered on 04/05/19 12:15; Admin Dose 3 ML; Start 03/27/19 at 21:00 Heparin Sodium (Porcine) (Heparin (1000 Units/ml)) 3,000 unit AFTER DIALYSIS CATHETER Last administered on 04/04/19 23:28; Admin Dose 3,000 UNIT; Start 03/28/19 at 09:30 Magnesium Hydroxide (Milk Of Mag) 30 ml DAILY PRN PO CONSTIPATION Last administered on 03/28/19 20:48; Admin Dose 30 ML; Start 03/28/19 at 15:30 Heparin Sodium (Porcine) (Heparin (5000 Units/1ml)) 5,000 unit BID SC Last administered on 04/05/19 10:42; Admin Dose 5,000 UNIT; Start 03/29/19 at 21:00 Metoclopramide HCl (Reglan) 5 mg Q6 IV Last administered on 04/05/19 12:00; Admin Dose 5 MG; Start 03/29/19 at 18:00 Meropenem/Sodium Chloride 50 ml @ 100 mls/hr Q24H IVPB Last administered on 04/04/19 18:06; Admin Dose 100 MLS/HR; Start 03/29/19 at 18:00; Stop 04/05/19 at 17:59 Diagnostic Test (Pha) (Accu-Chek) 1 ea 02 XX Last administered on 04/02/19 01:49; Admin Dose 1 EA; Start 04/01/19 at 02:00 Methylprednisolone Sodium Succinate (Solu-Medrol) 60 mg Q8 IV Last administered on 04/05/19 05:27; Admin Dose 60 MG; Start 03/31/19 at 10:30 Insulin Aspart (Novolog Insulin Pen) NOVOLOG *MODERATE* ALGORITHM WITH MEALS BEDTIME SC Last administered on 04/05/19 12:02; Admin Dose 4 UNIT; Start 03/31/19 at 21:00 Metoclopramide HCl (Reglan) 5 mg Q6H PRN IV NAUSEA; Start 04/01/19 at 09:35 Insulin Glargine (Lantus) 8 units DAILY@2000 SC Last administered on 04/04/19 22:39; Admin Dose 8 UNITS; Start 04/01/19 at 20:00 Chlorpromazine (Thorazine) 25 mg BID PRN PO hiccups; Start 04/01/19 at 20:00 Insulin Human NPH (Humulin N) 8 unit Q8 SC Last administered on 04/05/19 05:31; Admin Dose 8 UNIT; Start 04/02/19 at 14:00 Ranitidine HCl (Zantac) 300 mg QHS PO Last administered on 04/04/19 22:30; Admin Dose 300 MG; Start 04/02/19 at 21:00 Docusate Sodium/ Ferrous Fumarate (Angela-Sequels) 1 tab DAILY PO Last administered on 04/05/19 10:39; Admin Dose 1 TAB; Start 04/02/19 at 12:30; Stop 05/02/19 at 12:29 Carvedilol (Coreg) 18.75 mg BID PO Last administered on 04/05/19 11:58; Admin Dose 18.75 MG; Start 04/05/19 at 09:00 Alfuzosin HCl (Uroxatral) 10 mg HS PO ; Start 04/05/19 at 21:00 Losartan Potassium (Cozaar) 25 mg QHS PO ; Start 04/05/19 at 21:00 FIDENCIO CENTENO MD Apr 05, 2019 13:31
--- NOTE | 2019-04-05 19:47 | CONS ---
Assessment/Plan Assessment/Plan Hospital Course (Demo Recall) assessment/impression - acute hypoxic resp failure, probably multifactorial: first, fluid overload. Pt's oxygenation improved after undergoing dialysis and so fluid overload is a significant factor. Second, we suspect aspiration pneumonia/pneumonitis. Pt reportedly was having spells of congested cough upon arrival at ICU. Pt has h/o "excessive saliva production" since 08/2018 according to Pt's daughter in law. This increases a risk of aspiration pneumonia and/or pneumonitis. 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, Pt is scheduled to get R TMA once his acute illness resolves - s/p R SFA to posterior tibial bypass using in situ greater saphenous vein from R thigh and calf on 03/23/2019 - former smoker - constipation - Pt completed pip/tazo (03/25/19-03/28/19) and IV vancomycin (03/25/19-03/30/19) recommendations: - Monitor closely off antibiotics; s/p meropenem (03/29/2019-04/04/2019) - Pt was started on a trial of steroid by pulm service, will monitor WBC level (still trending up but remains afebrile) - Plan for placement of tunnelled HD catheter tomorrow Management d/w patient, VIC Valerio, and with Dr. Somers Critical care time spent: 30 min Consultation Date/Type/Reason Admit Date/Time Mar 23, 2019 at 06:13 Initial Consult Date 03/28/19 Type of Consult Infectious Disease Requesting Provider: OJSE PARRY MD Date/Time of Note DATE: 04/05/19 TIME: 19:47 24 HR Interval Summary Free Text/Dictation High flow O2 weaned down to low flow O2 at 2L via NC. Plan for placement of tunneled HD catheter tomorrow. Pt denies pain, SOB, n/v/d. Exam/Review of Systems Exam Vitals Vital Signs Date Temp Pulse Resp B/P (MAP) Pulse Ox O2 O2 Flow FiO2 Time Delivery Rate 04/05/19 68 19 126/65 97 Nasal 18:00 (85) Cannula 04/05/19 2.0 16:24 04/05/19 97.5 16:00 04/05/19 35 08:01 Intake and Output 04/04/19 04/04/19 04/05/19 1515:00 23:00 07:00 IntakeIntake Total 260 ml 490 ml 50 ml OutputOutput Total 3000 ml 3400 ml BalanceBalance 260 ml -2510 ml -3350 ml Exam Constitutional: alert, oriented, well developed, frail Psych: no complaints Head: normocephalic, atraumatic Eyes: nl conjunctiva, nl lids, nl sclera, other (wearing glasses) ENMT: nl external ears & nose, nl lips & teeth, nl nasal mucosa & septum, mucosa pink and moist Neck: supple Respiratory: crackles/rales, diminished breath sounds, other (On O2 at 2L via NC) Cardiovascular: regular rate and rhythm, nl pulses; No edema Gastrointestinal: soft, non-tender; No distended Musculoskeletal: nl extremities to inspection Extremities: No edema Neurological: nl mental status, nl speech (Portuguese speaking) Skin: nl turgor, other (R foot wrapped with Kerlix c/d/i; RLE dressing c/d/i) Results Result Diagram: 04/05/19 0410 04/05/19 0410 Results 24hrs Laboratory Tests Test 04/04/19 22:20 04/05/19 04:10 04/05/19 08:18 04/05/19 11:59 Bedside Glucose 110 136 186 White Blood Count 14.1 H Red Blood Count 3.48 L Hemoglobin 10.3 L Hematocrit 31.8 L Mean Corpuscular 91.4 Volume Mean Corpuscular 29.6 Hemoglobin Mean Corpuscular 32.4 Hemoglobin Concent Red Cell 14.8 H Distribution Width Platelet Count 340 Mean Platelet Volume 10.8 H Immature 1.500 H Granulocytes % Neutrophils % 91.8 H Lymphocytes % 2.4 L Monocytes % 4.1 Eosinophils % 0.0 Basophils % 0.2 Nucleated Red Blood 0.9 H Cells % Immature 0.210 H Granulocytes # Neutrophils # 12.9 H Lymphocytes # 0.3 L Monocytes # 0.6 Eosinophils # 0.0 Basophils # 0.0 Nucleated Red Blood 0.1 H Cells # Sodium Level 133 L Potassium Level 4.7 Chloride Level 96 L Carbon Dioxide Level 26 Anion Gap 11 Blood Urea Nitrogen 58 H Creatinine 4.41 H Est Glomerular 13 L Filtrat Rate mL/min Glucose Level 111 # Calcium Level 8.3 L Phosphorus Level 5.4 H Magnesium Level 2.4 Test 04/05/19 15:05 04/05/19 16:52 Bedside Glucose 176 154 Imaging Imaging CXR 04/05/2019: Stable patchy perihilar infiltrates in both lungs and small pleural effusions. Hyperexpanded lungs. Medications Medication Current Medications Aspirin (Aspirin) 325 mg DAILY PO Last administered on 04/05/19at 10:39; Admin Dose 325 MG; Start 03/24/19 at 09:00 Atorvastatin Calcium (Lipitor) 40 mg QHS PO Last administered on 04/04/19at 22:20; Admin Dose 40 MG; Start 03/23/19 at 21:00 Linagliptin (Tradjenta) 5 mg DAILY PO Last administered on 04/05/19at 10:40; Admin Dose 5 MG; Start 03/24/19 at 09:00 Ondansetron HCl (Zofran Inj) 4 mg Q4H PRN IV NAUSEA AND/OR VOMITING Last administered on 04/05/19at 06:29; Admin Dose 4 MG; Start 03/23/19 at 18:00 Hydromorphone HCl (Dilaudid) 2 mg Q4H PRN IV SEVERE PAIN LEVEL 7-10 Last administered on 04/05/19at 01:09; Admin Dose 2 MG; Start 03/23/19 at 18:00 Miscellaneous Information 1 ea NOTE XX ; Start 03/23/19 at 18:30 Glucose (Glutose) 15 gm Q15M PRN PO DECREASED GLUCOSE; Start 03/23/19 at 18:30 Glucose (Glutose) 22.5 gm Q15M PRN PO DECREASED GLUCOSE; Start 03/23/19 at 18:30 Dextrose (D50w Syringe) 25 ml Q15M PRN IV DECREASED GLUCOSE; Start 03/23/19 at 18:30 Dextrose (D50w Syringe) 50 ml Q15M PRN IV DECREASED GLUCOSE; Start 03/23/19 at 18:30 Glucagon (Glucagen) 1 mg Q15M PRN IM DECREASED GLUCOSE; Start 03/23/19 at 18:30 Glucose (Glutose) 15 gm Q15M PRN BUCCAL DECREASED GLUCOSE; Start 03/23/19 at 18:30 Epoetin Joseph-epbx (Retacrit (Esrd)) 10,000 unit TuThSa@1700 SC Last administered on 04/05/19 01:01; Admin Dose 10,000 UNIT; Start 03/24/19 at 17:00 Acetaminophen/ Hydrocodone Bitart ([place] (5/325)) 1 tab Q6H PRN PO .MOD PAIN 4- 6 Last administered on 04/04/19 01:50; Admin Dose 1 TAB; Start 03/24/19 at 22:30 Albumin Human 100 ml @ 100 mls/hr WITH DIALYSIS PRN IV SBP <90 DURING DIALYSIS Last administered on 03/29/19 10:43; Admin Dose 100 MLS/HR; Start 03/27/19 at 12:00 Albuterol/ Ipratropium (Duoneb) 3 ml Q4HWA RESP THERAPY HHN Last administered on 04/05/19 16:23; Admin Dose 3 ML; Start 03/27/19 at 21:00 Heparin Sodium (Porcine) (Heparin (1000 Units/ml)) 3,000 unit AFTER DIALYSIS CATHETER Last administered on 04/04/19 23:28; Admin Dose 3,000 UNIT; Start 03/28/19 at 09:30 Magnesium Hydroxide (Milk Of Mag) 30 ml DAILY PRN PO CONSTIPATION Last administered on 03/28/19 20:48; Admin Dose 30 ML; Start 03/28/19 at 15:30 Heparin Sodium (Porcine) (Heparin (5000 Units/1ml)) 5,000 unit BID SC Last administered on 04/05/19 10:42; Admin Dose 5,000 UNIT; Start 03/29/19 at 21:00 Metoclopramide HCl (Reglan) 5 mg Q6 IV Last administered on 04/05/19 17:14; Admin Dose 5 MG; Start 03/29/19 at 18:00 Diagnostic Test (Pha) (Accu-Chek) 1 ea 02 XX Last administered on 04/02/19 01:49; Admin Dose 1 EA; Start 04/01/19 at 02:00 Methylprednisolone Sodium Succinate (Solu-Medrol) 60 mg Q8 IV Last administered on 04/05/19 15:02; Admin Dose 60 MG; Start 03/31/19 at 10:30 Insulin Aspart (Novolog Insulin Pen) NOVOLOG *MODERATE* ALGORITHM WITH MEALS BEDTIME SC Last administered on 04/05/19 16:55; Admin Dose 2 UNIT; Start 03/31/19 at 21:00 Metoclopramide HCl (Reglan) 5 mg Q6H PRN IV NAUSEA; Start 04/01/19 at 09:35 Insulin Glargine (Lantus) 8 units DAILY@2000 SC Last administered on 04/04/19 22:39; Admin Dose 8 UNITS; Start 04/01/19 at 20:00 Chlorpromazine (Thorazine) 25 mg BID PRN PO hiccups; Start 04/01/19 at 20:00 Insulin Human NPH (Humulin N) 8 unit Q8 SC Last administered on 04/05/19 15:07; Admin Dose 8 UNIT; Start 04/02/19 at 14:00 Ranitidine HCl (Zantac) 300 mg QHS PO Last administered on 04/04/19 22:30; Admin Dose 300 MG; Start 04/02/19 at 21:00 Docusate Sodium/ Ferrous Fumarate (Angela-Sequels) 1 tab DAILY PO Last administered on 04/05/19 10:39; Admin Dose 1 TAB; Start 04/02/19 at 12:30; Stop 05/02/19 at 12:29 Carvedilol (Coreg) 18.75 mg BID PO Last administered on 04/05/19at 11:58; Admin Dose 18.75 MG; Start 04/05/19 at 09:00 Alfuzosin HCl (Uroxatral) 10 mg HS PO ; Start 04/05/19 at 21:00 Losartan Potassium (Cozaar) 25 mg QHS PO ; Start 04/05/19 at 21:00 LEONIE MIRANDA NP Apr 05, 2019 19:47
[2019-04-05] MEDS: RANITIDINE 150 MG TAB PO SCH (20:13)
[2019-04-05] MEDS: ALFUZOSIN (SR) 10 MG TAB PO SCH (20:14)
[2019-04-05] MEDS: ATORVASTATIN 40 MG TAB PO SCH (20:14)
[2019-04-05] MEDS: LOSARTAN 25 MG TAB PO SCH (20:14)
[2019-04-05] MEDS: INSULIN GLARGINE [LANTus] (100 UNITS/ML) SYG SC SCH (20:16)
[2019-04-05] MEDS: ZOLPIDEM 5 MG TAB PO PRN (21:24)
[2019-04-06] VITALS (67 sets, daily range): BP systolic 71–142; BP diastolic 36–83; PULSE 55–140; RESP 10–26
[2019-04-06] MEDS: METOCLOPRAMIDE 10 MG INJ IV SCH ×4 (00:12→17:24)
[2019-04-06] MEDS: ACCU-CHEK XX SCH (02:00)
[2019-04-06] MEDS: METHYLPREDNISOLONE 125 MG INJ IV SCH ×2 (06:24→16:20)
[2019-04-06] MEDS: NPH, HUMAN INSULIN ISOPHANE 3ML VIAL SC SCH ×3 (06:27→22:12)
--- NOTE | 2019-04-06 07:44 | SIPON ---
Date/Time of Note Date/Time of Note DATE: 04/06/19 TIME: 07:43 Operative Report Preoperative Diagnosis ESRD Postoperative Diagnosis same Operation/Procedure Performed R IJ permacath placement Surgeon see signature line assistant merchandiser none Anesthesia: other Estimated blood loss: minimal Transfusion Required none Specimen none Grafts/Implants 23 cm tunnelled dialysis catheter Complications none WALTER LOWERY MD Apr 06, 2019 07:44
[2019-04-06] MEDS ORDERED: CEFAZOLIN 1 GM/50 ML (PMX) 100 ML IVPB ONE (07:46)
[2019-04-06] MEDS ORDERED: LIDOCAINE 1% (MDV) 20 ML INJ ONE (07:46)
[2019-04-06] MEDS ORDERED: HEPARIN 1000 UNITS/ML 10 ML INJ ONE (07:46)
[2019-04-06] MEDS ORDERED: HEPARIN 1000 UNITS/NS (A-LINE) 1,000 ML ONE (07:46)
[2019-04-06] MEDS: ALBUTEROL/IPRATROPIUM (NEB) 3 ML AMP HHN SCH ×4 (08:18→20:58)
[2019-04-06] MEDS: INSULIN ASPART [NOVOLOG] 3 ML PEN SC SCH ×4 (08:30→20:38)
--- NOTE | 2019-04-06 08:30 | CONS ---
Assessment/Plan Assessment/Plan Assessment/Plan 1. Pneumonia continues to improve with less oxygen requirement, ?? dc steroids 2. Vasc cath placed earlier and dialysis scheduled today 3. Vol overload, will HD again tomm 4. Anemia very stable 5. Hopefully toe amputation this week Consultation Date/Type/Reason Admit Date/Time Mar 23, 2019 at 06:13 Type of Consult Nephrology Date/Time of Note DATE: 04/06/19 TIME: 08:28 Respiratory: No cough, No shortness of breath Cardiovascular: no complaints Gastrointestinal: no complaints Genitourinary: no complaints Exam/Review of Systems Vital Signs Vitals Vital Signs Date Temp Pulse Resp B/P (MAP) Pulse Ox O2 O2 Flow FiO2 Time Delivery Rate 04/06/19 67 18 97 Nasal 2.0 08:18 Cannula 04/06/19 109/52 07:00 (71) 04/06/19 97.5 05:00 04/05/19 35 08:01 Intake and Output 04/05/19 04/05/19 04/06/19 1515:00 23:00 07:00 IntakeIntake Total 650 ml 240 ml 240 ml OutputOutput Total 50 ml 150 ml BalanceBalance 600 ml 240 ml 90 ml Exam Neck: jvd (HJR is present) Respiratory: diminished breath sounds Cardiovascular: regular rate and rhythm Gastrointestinal: soft Extremities: edema (sacral 2+) Labs Result Diagram: 04/06/198 04/06/198 Results 24hrs Laboratory Tests Test 04/05/19 11:59 04/05/19 15:05 04/05/19 16:52 04/05/19 20:07 Bedside Glucose 186 176 154 130 Test 04/05/19 21:23 04/06/19 02:06 04/06/19 04:48 04/06/19 05:43 Bedside Glucose 119 80 69 L White Blood Count 10.4 # Red Blood Count 3.59 L Hemoglobin 10.4 L Hematocrit 32.5 L Mean Corpuscular 90.5 Volume Mean Corpuscular 29.0 Hemoglobin Mean Corpuscular 32.0 Hemoglobin Concent Red Cell 15.0 H Distribution Width Platelet Count 305 Mean Platelet Volume 10.8 H Immature 1.700 H Granulocytes % Neutrophils % 90.5 H Lymphocytes % 3.3 L Monocytes % 4.5 Eosinophils % 0.0 Basophils % 0.0 Nucleated Red Blood 0.7 H Cells % Immature 0.180 H Granulocytes # Neutrophils # 9.5 H Lymphocytes # 0.3 L Monocytes # 0.5 Eosinophils # 0.0 Basophils # 0.0 Nucleated Red Blood 0.1 H Cells # Sodium Level 131 L Potassium Level 5.3 H Chloride Level 95 L Carbon Dioxide Level 23 Anion Gap 13 Blood Urea Nitrogen 84 H Creatinine 5.54 H Est Glomerular 10 L Filtrat Rate mL/min Glucose Level 68 #L Calcium Level 7.9 L Total Bilirubin 0.3 Direct Bilirubin 0.00 Indirect Bilirubin 0.3 Aspartate Amino 18 Transf (AST/SGOT) Alanine 18 Aminotransferase (AL T/SGPT) Alkaline Phosphatase 81 Total Protein 5.2 L Albumin 2.6 L Globulin 2.60 Albumin/Globulin 1.00 Ratio Test 04/06/19 06:05 04/06/19 06:15 04/06/19 08:15 Bedside Glucose 90 97 126 Medications Medications Current Medications Aspirin (Aspirin) 325 mg DAILY PO Last administered on 04/05/19at 10:39; Admin Dose 325 MG; Start 03/24/19 at 09:00 Atorvastatin Calcium (Lipitor) 40 mg QHS PO Last administered on 04/05/19at 20:14; Admin Dose 40 MG; Start 03/23/19 at 21:00 Linagliptin (Tradjenta) 5 mg DAILY PO Last administered on 04/05/19at 10:40; Admin Dose 5 MG; Start 03/24/19 at 09:00 Ondansetron HCl (Zofran Inj) 4 mg Q4H PRN IV NAUSEA AND/OR VOMITING Last administered on 04/05/19at 06:29; Admin Dose 4 MG; Start 03/23/19 at 18:00 Hydromorphone HCl (Dilaudid) 2 mg Q4H PRN IV SEVERE PAIN LEVEL 7-10 Last administered on 04/05/19at 01:09; Admin Dose 2 MG; Start 03/23/19 at 18:00 Miscellaneous Information 1 ea NOTE XX ; Start 03/23/19 at 18:30 Glucose (Glutose) 15 gm Q15M PRN PO DECREASED GLUCOSE; Start 03/23/19 at 18:30 Glucose (Glutose) 22.5 gm Q15M PRN PO DECREASED GLUCOSE; Start 03/23/19 at 18:30 Dextrose (D50w Syringe) 25 ml Q15M PRN IV DECREASED GLUCOSE; Start 03/23/19 at 18:30 Dextrose (D50w Syringe) 50 ml Q15M PRN IV DECREASED GLUCOSE; Start 03/23/19 at 1 8:30 Glucagon (Glucagen) 1 mg Q15M PRN IM DECREASED GLUCOSE; Start 03/23/19 at 18:30 Glucose (Glutose) 15 gm Q15M PRN BUCCAL DECREASED GLUCOSE; Start 03/23/19 at 18:30 Epoetin Joseph-epbx (Retacrit (Esrd)) 10,000 unit TuThSa@1700 SC Last administered on 04/05/19 01:01; Admin Dose 10,000 UNIT; Start 03/24/19 at 17:00 Acetaminophen/ Hydrocodone Bitart ([place] (5/325)) 1 tab Q6H PRN PO .MOD PAIN 4- 6 Last administered on 04/04/19 01:50; Admin Dose 1 TAB; Start 03/24/19 at 22:30 Albumin Human 100 ml @ 100 mls/hr WITH DIALYSIS PRN IV SBP <90 DURING DIALYSIS Last administered on 03/29/19 10:43; Admin Dose 100 MLS/HR; Start 03/27/19 at 12:00 Albuterol/ Ipratropium (Duoneb) 3 ml Q4HWA RESP THERAPY HHN Last administered on 04/06/19 08:18; Admin Dose 3 ML; Start 03/27/19 at 21:00 Heparin Sodium (Porcine) (Heparin (1000 Units/ml)) 3,000 unit AFTER DIALYSIS CATHETER Last administered on 04/04/19 23:28; Admin Dose 3,000 UNIT; Start 03/28/19 at 09:30 Magnesium Hydroxide (Milk Of Mag) 30 ml DAILY PRN PO CONSTIPATION Last administered on 03/28/19 20:48; Admin Dose 30 ML; Start 03/28/19 at 15:30 Heparin Sodium (Porcine) (Heparin (5000 Units/1ml)) 5,000 unit BID SC Last administered on 04/05/19 21:28; Admin Dose 5,000 UNIT; Start 03/29/19 at 21:00 Metoclopramide HCl (Reglan) 5 mg Q6 IV Last administered on 04/06/19 06:24; Admin Dose 5 MG; Start 03/29/19 at 18:00 Diagnostic Test (Pha) (Accu-Chek) 1 ea 02 XX Last administered on 04/02/19 01:49; Admin Dose 1 EA; Start 04/01/19 at 02:00 Methylprednisolone Sodium Succinate (Solu-Medrol) 60 mg Q8 IV Last administered on 04/06/19 06:24; Admin Dose 60 MG; Start 03/31/19 at 10:30 Insulin Aspart (Novolog Insulin Pen) NOVOLOG *MODERATE* ALGORITHM WITH MEALS BEDTIME SC Last administered on 04/05/19 16:55; Admin Dose 2 UNIT; Start 03/31/19 at 21:00 Metoclopramide HCl (Reglan) 5 mg Q6H PRN IV NAUSEA; Start 04/01/19 at 09:35 Insulin Glargine (Lantus) 8 units DAILY@2000 SC Last administered on 04/05/19 20:16; Admin Dose 8 UNITS; Start 04/01/19 at 20:00 Chlorpromazine (Thorazine) 25 mg BID PRN PO hiccups; Start 04/01/19 at 20:00 Insulin Human NPH (Humulin N) 8 unit Q8 SC Last administered on 04/06/19 06:27; Admin Dose 5 UNIT; Start 04/02/19 at 14:00 Ranitidine HCl (Zantac) 300 mg QHS PO Last administered on 04/05/19 20:13; Admin Dose 300 MG; Start 04/02/19 at 21:00 Docusate Sodium/ Ferrous Fumarate (Angela-Sequels) 1 tab DAILY PO Last administered on 04/05/19 10:39; Admin Dose 1 TAB; Start 04/02/19 at 12:30; S top 05/02/19 at 12:29 Carvedilol (Coreg) 18.75 mg BID PO Last administered on 04/05/19 20:14; Admin Dose 18.75 MG; Start 04/05/19 at 09:00 Alfuzosin HCl (Uroxatral) 10 mg HS PO Last administered on 04/05/19 20:14; Admin Dose 10 MG; Start 04/05/19 at 21:00 Losartan Potassium (Cozaar) 25 mg QHS PO Last administered on 04/05/19 20:14; Admin Dose 25 MG; Start 04/05/19 at 21:00 Zolpidem Tartrate (Ambien) 5 mg HS PRN PO INSOMNIA Last administered on 04/05/19at 21:24; Admin Dose 5 MG; Start 04/05/19 at 21:30 DOT ASHLEY MD Apr 06, 2019 08:30
--- NOTE | 2019-04-06 09:21 | OPR ---
DATE OF OPERATION: 04/06/2019 PREOPERATIVE DIAGNOSIS: End-stage renal disease. POSTOPERATIVE DIAGNOSIS: End-stage renal disease. PROCEDURE PERFORMED: Insertion of right internal jugular vein tunneled hemodialysis catheter using u ltrasound and fluoroscopic guidance. SURGEON: Walter Monaco MD ANESTHESIA: Local. ESTIMATED BLOOD LOSS: Minimal. COMPLICATIONS: No intraprocedural complications. INDICATIONS: A 68-year-old gentleman with end-stage renal disease. He has a left femoral Kalyan ca theter. I brought him down for placement of right internal jugular tunneled hemodialysis catheter. DESCRIPTION OF PROCEDURE: The patient was brought to the skilled laborer, placed on the table in supine pos ition. Right neck and chest wall were prepped and draped in the usual sterile fashion. Began by inf iltrating over the right internal jugular vein was about 10 mL of 1% Xylocaine, using ultrasound to i dentify the vein. It was easily compressible, no filling defects, good caliber and then entered the internal jugular vein under ultrasonic guidance using a micropuncture needle. An 0.018 wire was inse rted through the needle into vein, and a micropuncture sheath was advanced over the wire into the vei n. I then advanced 0.035 Amplatz wire down through the heart into the inferior vena cava. I made a small incision over the wire. I then anesthetized the tract out onto the right anterior chest wall b elow the clavicle using 1% lidocaine and then made a small incision below the clavicle. I then tunne led a 23 cm tunneled dialysis catheter between the 2 incisions leaving the cuff in the mid portion of the tract. I then placed serial dilators over the wire and then a large peel away sheath over the w caro and into the right atrium. I then placed the end of the catheter through the peel-away sheath an d then peeled the sheath away leaving the tip in the right atrium. There was good backflow from both ports. They both flushed easily. I anchored the catheter to the skin using 3-[address] aced 2.2 mL of 1000 unit per mL heparin in each port. I then used 4-0 Monocryl suture to close the p uncture site in the neck. Sterile dressings were applied, and patient was then transferred back to h is room in stable condition, tolerated procedure well without any complication. The catheter is read y to use. Dictated By: WALTER RICHTER/VIOLET Conf#: [id number] DID#: [id number] CC: JOSE PARRY MD; DOT ASHLEY MD;*End*
[2019-04-06] MEDS: FERROUS FUMARATE (SR) TAB PO SCH (09:33)
[2019-04-06] MEDS: ASPIRIN 325 MG TAB PO SCH (09:33)
[2019-04-06] MEDS: LINAGLIPTIN 5 MG TABLET PO SCH (09:34)
[2019-04-06] MEDS: HEPARIN 5,000 UNIT/1 ML VIAL SC SCH ×2 (09:38→21:04)
--- NOTE | 2019-04-06 10:40 | CONS ---
Consult Date/Type/Reason Admit Date/Time Mar 23, 2019 at 06:13 Initial Consult Date 03/28/19 Type of Consult Pulmonary Requesting Provider: JOSE PARRY MD Date/Time of Note DATE: 04/06/19 TIME: 10:39 Subjective Patient comfortable this morning on nasal cannula no respiratory distress Objective Vital Signs Date Temp Pulse Resp B/P (MAP) Pulse Ox O2 O2 Flow FiO2 Time Delivery Rate 04/06/19 59 15 120/55 99 Nasal 2.0 10:00 (76) Cannula 04/06/19 97.8 08:00 04/05/19 35 08:01 Intake and Output 04/05/19 04/05/19 04/06/19 1515:00 23:00 07:00 IntakeIntake Total 650 ml 240 ml 240 ml OutputOutput Total 50 ml 150 ml BalanceBalance 600 ml 240 ml 90 ml Exam GENERAL: Elderly gentleman appears comfortable at rest no acute distress. VITAL SIGNS: per chart NECK: Supple. No JVD or lymphadenopathy. CARDIAC EXAM: S1, S2. No added sounds or murmurs. CHEST: Diminished air entry bilaterally with rales ABDOMEN: Soft, nontender. No guarding or rebound. EXTREMITIES: No cyanosis, clubbing or edema. NEUROLOGIC: Generalized weakness. Vent Setting Fraction of Inspired Oxygen pe: 35 Results/Medications Result Diagram: 04/06/1944704/06/19447 Results 24 hrs Laboratory Tests Test 04/05/19 11:59 04/05/19 15:05 04/05/19 16:52 04/05/19 20:07 Bedside Glucose 186 176 154 130 Test 04/05/19 21:23 04/06/19 02:06 04/06/19 04:48 04/06/19 05:43 Bedside Glucose 119 80 69 L White Blood Count 10.4 # Red Blood Count 3.59 L Hemoglobin 10.4 L Hematocrit 32.5 L Mean Corpuscular 90.5 Volume Mean Corpuscular 29.0 Hemoglobin Mean Corpuscular 32.0 Hemoglobin Concent Red Cell 15.0 H Distribution Width Platelet Count 305 Mean Platelet Volume 10.8 H Immature 1.700 H Granulocytes % Neutrophils % 90.5 H Lymphocytes % 3.3 L Monocytes % 4.5 Eosinophils % 0.0 Basophils % 0.0 Nucleated Red Blood 0.7 H Cells % Immature 0.180 H Granulocytes # Neutrophils # 9.5 H Lymphocytes # 0.3 L Monocytes # 0.5 Eosinophils # 0.0 Basophils # 0.0 Nucleated Red Blood 0.1 H Cells # Sodium Level 131 L Potassium Level 5.3 H Chloride Level 95 L Carbon Dioxide Level 23 Anion Gap 13 Blood Urea Nitrogen 84 H Creatinine 5.54 H Est Glomerular 10 L Filtrat Rate mL/min Glucose Level 68 #L Calcium Level 7.9 L Total Bilirubin 0.3 Direct Bilirubin 0.00 Indirect Bilirubin 0.3 Aspartate Amino 18 Transf (AST/SGOT) Alanine 18 Aminotransferase (AL T/SGPT) Alkaline Phosphatase 81 Total Protein 5.2 L Albumin 2.6 L Globulin 2.60 Albumin/Globulin 1.00 Ratio Test 04/06/19 06:05 04/06/19 06:15 04/06/19 08:15 Bedside Glucose 90 97 126 Medications Current Medications Aspirin (Aspirin) 325 mg DAILY PO Last administered on 04/06/19at 09:33; Admin Dose 325 MG; Start 03/24/19 at 09:00 Atorvastatin Calcium (Lipitor) 40 mg QHS PO Last administered on 04/05/19at 20:14; Admin Dose 40 MG; Start 03/23/19 at 21:00 Linagliptin (Tradjenta) 5 mg DAILY PO Last administered on 04/06/19at 09:34; Admin Dose 5 MG; Start 03/24/19 at 09:00 Ondansetron HCl (Zofran Inj) 4 mg Q4H PRN IV NAUSEA AND/OR VOMITING Last administered on 04/05/19at 06:29; Admin Dose 4 MG; Start 03/23/19 at 18:00 Hydromorphone HCl (Dilaudid) 2 mg Q4H PRN IV SEVERE PAIN LEVEL 7-10 Last administered on 04/05/19at 01:09; Admin Dose 2 MG; Start 03/23/19 at 18:00 Miscellaneous Information 1 ea NOTE XX ; Start 03/23/19 at 18:30 Glucose (Glutose) 15 gm Q15M PRN PO DECREASED GLUCOSE; Start 03/23/19 at 18:30 Glucose (Glutose) 22.5 gm Q15M PRN PO DECREASED GLUCOSE; Start 03/23/19 at 18:30 Dextrose (D50w Syringe) 25 ml Q15M PRN IV DECREASED GLUCOSE; Start 03/23/19 at 18:30 Dextrose (D50w Syringe) 50 ml Q15M PRN IV DECREASED GLUCOSE; Start 03/23/19 at 18:30 Glucagon (Glucagen) 1 mg Q15M PRN IM DECREASED GLUCOSE; Start 03/23/19 at 18:30 Glucose (Glutose) 15 gm Q15M PRN BUCCAL DECREASED GLUCOSE; Start 03/23/19 at 18:30 Epoetin Joseph-epbx (Retacrit (Esrd)) 10,000 unit TuThSa@1700 SC Last administered on 04/05/19 01:01; Admin Dose 10,000 UNIT; Start 03/24/19 at 17:00 Acetaminophen/ Hydrocodone Bitart ([place] (5/325)) 1 tab Q6H PRN PO .MOD PAIN 4- 6 Last administered on 04/04/19 01:50; Admin Dose 1 TAB; Start 03/24/19 at 22:30 Albumin Human 100 ml @ 100 mls/hr WITH DIALYSIS PRN IV SBP <90 DURING DIALYSIS Last administered on 03/29/19 10:43; Admin Dose 100 MLS/HR; Start 03/27/19 at 12:00 Albuterol/ Ipratropium (Duoneb) 3 ml Q4HWA RESP THERAPY HHN Last administered on 04/06/19 08:18; Admin Dose 3 ML; Start 03/27/19 at 21:00 Heparin Sodium (Porcine) (Heparin (1000 Units/ml)) 3,000 unit AFTER DIALYSIS CATHETER Last administered on 04/04/19 23:28; Admin Dose 3,000 UNIT; Start 03/28/19 at 09:30 Magnesium Hydroxide (Milk Of Mag) 30 ml DAILY PRN PO CONSTIPATION Last administered on 03/28/19 20:48; Admin Dose 30 ML; Start 03/28/19 at 15:30 Heparin Sodium (Porcine) (Heparin (5000 Units/1ml)) 5,000 unit BID SC Last administered on 04/06/19 09:38; Admin Dose 5,000 UNIT; Start 03/29/19 at 21:00 Metoclopramide HCl (Reglan) 5 mg Q6 IV Last administered on 04/06/19 06:24; Admin Dose 5 MG; Start 03/29/19 at 18:00 Diagnostic Test (Pha) (Accu-Chek) 1 ea 02 XX Last administered on 04/02/19 01:49; Admin Dose 1 EA; Start 04/01/19 at 02:00 Methylprednisolone Sodium Succinate (Solu-Medrol) 60 mg Q8 IV Last administered on 04/06/19 06:24; Admin Dose 60 MG; Start 03/31/19 at 10:30 Insulin Aspart (Novolog Insulin Pen) NOVOLOG *MODERATE* ALGORITHM WITH MEALS BEDTIME SC Last administered on 04/05/19 16:55; Admin Dose 2 UNIT; Start 03/31/19 at 21:00 Metoclopramide HCl (Reglan) 5 mg Q6H PRN IV NAUSEA; Start 04/01/19 at 09:35 Insulin Glargine (Lantus) 8 units DAILY@2000 SC Last administered on 04/05/19 20:16; Admin Dose 8 UNITS; Start 04/01/19 at 20:00 Chlorpromazine (Thorazine) 25 mg BID PRN PO hiccups; Start 04/01/19 at 20:00 Insulin Human NPH (Humulin N) 8 unit Q8 SC Last administered on 04/06/19 06:27; Admin Dose 5 UNIT; Start 04/02/19 at 14:00 Ranitidine HCl (Zantac) 300 mg QHS PO Last administered on 04/05/19 20:13; Admin Dose 300 MG; Start 04/02/19 at 21:00 Docusate Sodium/ Ferrous Fumarate (Angela-Sequels) 1 tab DAILY PO Last a dministered on 04/06/19 09:33; Admin Dose 1 TAB; Start 04/02/19 at 12:30; Stop 05/02/19 at 12:29 Carvedilol (Coreg) 18.75 mg BID PO Last administered on 04/06/19 09:34; Admin Dose 18.75 MG; Start 04/05/19 at 09:00 Alfuzosin HCl (Uroxatral) 10 mg HS PO Last administered on 04/05/19 20:14; Admin Dose 10 MG; Start 04/05/19 at 21:00 Losartan Potassium (Cozaar) 25 mg QHS PO Last administered on 04/05/19 20:14; Admin Dose 25 MG; Start 04/05/19 at 21:00 Zolpidem Tartrate (Ambien) 5 mg HS PRN PO INSOMNIA Last administered on 04/05/19at 21:24; Admin Dose 5 MG; Start 04/05/19 at 21:30 Assessment/Plan Hospital Course (Demo Recall) IMPRESSION: 1. Acute hypoxemic respiratory failure significant radiographic changes concerning for pulmonary edema versus opportunistic infection. 2. Acute on chronic renal failure, now requiring dialysis. 3. Peripheral vascular disease, status post revascularization. 4. Likely aspiration pneumonia as well. 5. Diabetes mellitus. 6. History of hypertension. 7. Benign prostatic hypertrophy. RECOMMENDATIONS: 1. Off high flow O2 now on regular nasal cannula. 2. Aspiration precautions continue antibiotics per infectious diseases currently on meropenem 3. We will decrease steroid dosing. 4. Hemodialysis per nephrology. Continue with volume removal as tolerated. Critical care time 40 minutes. Stable for transfer to telemetry. DMITRI PAIGE MD, [facility] Apr 06, 2019 10:40
[2019-04-06] MEDS ORDERED: HEPARIN 1000 UNITS/ML 10 ML INJ CATHETER ONE (11:30)
--- NOTE | 2019-04-06 17:10 | PN ---
Date/Time of Note Date/Time of Note DATE: 04/06/19 TIME: 17:06 Assessment/Plan VTE Prophylaxis [place] [facility] risk: 9 [place]CD [place] [facility] No SCD contraindicated: bilateral LE trauma Pharmacological prophylaxis: heparin Lines/Catheters IV [facility]atheter Type [facility]from [facility]): EVELIA CATH Urinary Cath still in place: No Assessment/Plan Problems: (1) End stage renal disease on dialysis due to type 2 diabetes mellitus Status: Chronic Comment: Analysis permacath and in the femoral catheter is been discontinued. After he has had his amputations done that we can move him upstairs finish getting him prepared for discharge and get him set up for outpatient dialysis. (2) Diabetes mellitus type 2 with complications Status: Chronic Comment: Adequate glycemic control if not slightly overcontrolled (3) Diabetes, polyneuropathy Status: Chronic Comment: Stable at this time Qualifiers: Diabetes mellitus type: type 2 Qualified Codes: E11.42 - Type 2 diabetes mellitus with diabetic polyneuropathy (4) Essential (primary) hypertension Status: Chronic Comment: Adequate control (5) Peripheral vascular disease of lower extremity Status: Chronic Comment: Noted and has been seen in consult by vascular (6) Hyperlipidemia Status: Chronic Comment: Continue treatment Qualifiers: Hyperlipidemia type: pure hypercholesterolemia Qualified Codes: E78.00 - Pure hypercholesterolemia, unspecified (7) Benign prostatic hyperplasia with urinary obstruction Status: Chronic Comment: On alpha blockade Result Diagram: 04/06/19 0448 04/06/19 0448 Results 24hrs Laboratory Tests Test 04/05/19 20:07 04/05/19 21:23 04/06/19 02:06 04/06/19 04:48 Bedside Glucose 130 119 80 White Blood Count 10.4 # Red Blood Count 3.59 L Hemoglobin 10.4 L Hematocrit 32.5 L Mean Corpuscular 90.5 Volume Mean Corpuscular 29.0 Hemoglobin Mean Corpuscular 32.0 Hemoglobin Concent Red Cell 15.0 H Distribution Width Platelet Count 305 Mean Platelet Volume 10.8 H Immature 1.700 H Granulocytes % Neutrophils % 90.5 H Lymphocytes % 3.3 L Monocytes % 4.5 Eosinophils % 0.0 Basophils % 0.0 Nucleated Red Blood 0.7 H Cells % Immature 0.180 H Granulocytes # Neutrophils # 9.5 H Lymphocytes # 0.3 L Monocytes # 0.5 Eosinophils # 0.0 Basophils # 0.0 Nucleated Red Blood 0.1 H Cells # Sodium Level 131 L Potassium Level 5.3 H Chloride Level 95 L Carbon Dioxide Level 23 Anion Gap 13 Blood Urea Nitrogen 84 H Creatinine 5.54 H Est Glomerular 10 L Filtrat Rate mL/min Glucose Level 68 #L Calcium Level 7.9 L Total Bilirubin 0.3 Direct Bilirubin 0.00 Indirect Bilirubin 0.3 Aspartate Amino 18 Transf (AST/SGOT) Alanine 18 Aminotransferase (AL T/SGPT) Alkaline Phosphatase 81 Total Protein 5.2 L Albumin 2.6 L Globulin 2.60 Albumin/Globulin 1.00 Ratio Test 04/06/19 05:43 04/06/19 06:05 04/06/19 06:15 04/06/19 08:15 Bedside Glucose 69 L 90 97 126 Test 04/06/19 12:14 04/06/19 13:52 04/06/19 16:19 Bedside Glucose 88 71 Prothrombin Time 15.6 H Prothrombin Time 1.2 Ratio INR International 1.23 Normalized Ratio Activated 46.2 H Partial Thromboplast Time Subjective 24 Hr Interval Summary Free Text/Dictation Patient is has permacath placed in the right shoulder and will be having his toe amputations later today. At this time reports he is feeling well Constitutional: no complaints (No fevers chills or sweats) Respiratory: no complaints Cardiovascular: no complaints Gastrointestinal: no complaints Genitourinary: no complaints Exam/Review of Systems Exam Vitals Vital Signs Date Temp Pulse Resp B/P (MAP) Pulse Ox O2 O2 Flow FiO2 Time Delivery Rate 04/06/19 61 16:00 04/06/19 97.5 11 129/58 98 16:00 (81) 04/06/19 Nasal 2.0 13:20 Cannula 04/05/19 35 08:01 Intake and Output 04/05/19 04/05/19 04/06/19 1515:00 23:00 07:00 IntakeIntake Total 650 ml 240 ml 240 ml OutputOutput Total 50 ml 150 ml BalanceBalance 600 ml 240 ml 90 ml Constitutional: alert, oriented Neck: supple, non-tender Respiratory: clear to auscultation, normal air movement Cardiovascular: regular rate and rhythm, nl pulses Results Results 24hrs Laboratory Tests Test 04/05/19 20:07 04/05/19 21:23 04/06/19 02:06 04/06/19 04:48 Bedside Glucose 130 119 80 White Blood Count 10.4 # Red Blood Count 3.59 L Hemoglobin 10.4 L Hematocrit 32.5 L Mean Corpuscular 90.5 Volume Mean Corpuscular 29.0 Hemoglobin Mean Corpuscular 32.0 Hemoglobin Concent Red Cell 15.0 H Distribution Width Platelet Count 305 Mean Platelet Volume 10.8 H Immature 1.700 H Granulocytes % Neutrophils % 90.5 H Lymphocytes % 3.3 L Monocytes % 4.5 Eosinophils % 0.0 Basophils % 0.0 Nucleated Red Blood 0.7 H Cells % Immature 0.180 H Granulocytes # Neutrophils # 9.5 H Lymphocytes # 0.3 L Monocytes # 0.5 Eosinophils # 0.0 Basophils # 0.0 Nucleated Red Blood 0.1 H Cells # Sodium Level 131 L Potassium Level 5.3 H Chloride Level 95 L Carbon Dioxide Level 23 Anion Gap 13 Blood Urea Nitrogen 84 H Creatinine 5.54 H Est Glomerular 10 L Filtrat Rate mL/min Glucose Level 68 #L Calcium Level 7.9 L Total Bilirubin 0.3 Direct Bilirubin 0.00 Indirect Bilirubin 0.3 Aspartate Amino 18 Transf (AST/SGOT) Alanine 18 Aminotransferase (AL T/SGPT) Alkaline Phosphatase 81 Total Protein 5.2 L Albumin 2.6 L Globulin 2.60 Albumin/Globulin 1.00 Ratio Test 04/06/19 05:43 04/06/19 06:05 04/06/19 06:15 04/06/19 08:15 Bedside Glucose 69 L 90 97 126 Test 04/06/19 12:14 04/06/19 13:52 04/06/19 16:19 Bedside Glucose 88 71 Prothrombin Time 15.6 H Prothrombin Time 1.2 Ratio INR International 1.23 Normalized Ratio Activated 46.2 H Partial Thromboplast Time Medications Medication Current Medications Aspirin (Aspirin) 325 mg DAILY PO Last administered on 04/06/19at 09:33; Admin Dose 325 MG; Start 03/24/19 at 09:00 Atorvastatin Calcium (Lipitor) 40 mg QHS PO Last administered on 04/05/19at 20:14; Admin Dose 40 MG; Start 03/23/19 at 21:00 Linagliptin (Tradjenta) 5 mg DAILY PO Last administered on 04/06/19at 09:34; Admin Dose 5 MG; Start 03/24/19 at 09:00 Ondansetron HCl (Zofran Inj) 4 mg Q4H PRN IV NAUSEA AND/OR VOMITING Last administered on 04/05/19 06:29; Admin Dose 4 MG; Start 03/23/19 at 18:00 Hydromorphone HCl (Dilaudid) 2 mg Q4H PRN IV SEVERE PAIN LEVEL 7-10 Last administered on 04/05/19 01:09; Admin Dose 2 MG; Start 03/23/19 at 18:00 Miscellaneous Information 1 ea NOTE XX ; Start 03/23/19 at 18:30 Glucose (Glutose) 15 gm Q15M PRN PO DECREASED GLUCOSE; Start 03/23/19 at 18:30 Glucose (Glutose) 22.5 gm Q15M PRN PO DECREASED GLUCOSE; Start 03/23/19 at 18:30 Dextrose (D50w Syringe) 25 ml Q15M PRN IV DECREASED GLUCOSE; Start 03/23/19 at 18:30 Dextrose (D50w Syringe) 50 ml Q15M PRN IV DECREASED GLUCOSE; Start 03/23/19 at 18:30 Glucagon (Glucagen) 1 mg Q15M PRN IM DECREASED GLUCOSE; Start 03/23/19 at 18:30 Glucose (Glutose) 15 gm Q15M PRN BUCCAL DECREASED GLUCOSE; Start 03/23/19 at 18:30 Epoetin Joseph-epbx (Retacrit (Esrd)) 10,000 unit TuThSa@1700 SC Last administered on 04/05/19at 01:01; Admin Dose 10,000 UNIT; Start 03/24/19 at 17:00 Acetaminophen/ Hydrocodone Bitart ([place] (5/325)) 1 tab Q6H PRN PO .MOD PAIN 4- 6 Last administered on 04/04/19at 01:50; Admin Dose 1 TAB; Start 03/24/19 at 22:30 Albumin Human 100 ml @ 100 mls/hr WITH DIALYSIS PRN IV SBP <90 DURING DIALYSIS Last administered on 03/29/19at 10:43; Admin Dose 100 MLS/HR; Start 03/27/19 at 12:00 Albuterol/ Ipratropium (Duoneb) 3 ml Q4HWA RESP THERAPY HHN Last administered on 04/06/19at 12:05; Admin Dose 3 ML; Start 03/27/19 at 21:00 Magnesium Hydroxide (Milk Of Mag) 30 ml DAILY PRN PO CONSTIPATION Last administered on 03/28/19 20:48; Admin Dose 30 ML; Start 03/28/19 at 15:30 Heparin Sodium (Porcine) (Heparin (5000 Units/1ml)) 5,000 unit BID SC Last administered on 04/06/19 09:38; Admin Dose 5,000 UNIT; Start 03/29/19 at 21:00 Metoclopramide HCl (Reglan) 5 mg Q6 IV Last administered on 04/06/19 16:20; Admin Dose 5 MG; Start 03/29/19 at 18:00 Diagnostic Test (Pha) (Accu-Chek) 1 ea 02 XX Last administered on 04/02/19 01 :49; Admin Dose 1 EA; Start 04/01/19 at 02:00 Methylprednisolone Sodium Succinate (Solu-Medrol) 60 mg Q8 IV Last administered on 04/06/19 16:20; Admin Dose 60 MG; Start 03/31/19 at 10:30 Insulin Aspart (Novolog Insulin Pen) NOVOLOG *MODERATE* ALGORITHM WITH MEALS BEDTIME SC Last administered on 04/05/19 16:55; Admin Dose 2 UNIT; Start 03/31/19 at 21:00 Metoclopramide HCl (Reglan) 5 mg Q6H PRN IV NAUSEA; Start 04/01/19 at 09:35 Insulin Glargine (Lantus) 8 units DAILY@2000 SC Last administered on 04/05/19 20:16; Admin Dose 8 UNITS; Start 04/01/19 at 20:00 Chlorpromazine (Thorazine) 25 mg BID PRN PO hiccups; Start 04/01/19 at 20:00 Insulin Human NPH (Humulin N) 8 unit Q8 SC Last administered on 04/06/19 06:27; Admin Dose 5 UNIT; Start 04/02/19 at 14:00 Ranitidine HCl (Zantac) 300 mg QHS PO Last administered on 04/05/19 20:13; Admin Dose 300 MG; Start 04/02/19 at 21:00 Docusate Sodium/ Ferrous Fumarate (Angela-Sequels) 1 tab DAILY PO Last administered on 04/06/19 09:33; Admin Dose 1 TAB; Start 04/02/19 at 12:30; Stop 05/02/19 at 12:29 Carvedilol (Coreg) 18.75 mg BID PO Last administered on 04/06/19at 09:34; Admin Dose 18.75 MG; Start 04/05/19 at 09:00 Alfuzosin HCl (Uroxatral) 10 mg HS PO Last administered on 04/05/19at 20:14; Admin Dose 10 MG; Start 04/05/19 at 21:00 Losartan Potassium (Cozaar) 25 mg QHS PO Last administered on 04/05/19at 20:14; Admin Dose 25 MG; Start 04/05/19 at 21:00 Zolpidem Tartrate (Ambien) 5 mg HS PRN PO INSOMNIA Last administered on 9at 21:24; Admin Dose 5 MG; Start 04/05/19 at 21:30 Dextrose 1,000 ml @ 40 mls/hr Q24H IV ; Start 04/06/19 at 17:30; Stop 04/07/19 at 06:00; Status KYLEE RODRIGUEZ MD Apr 06, 2019 17:10
--- NOTE | 2019-04-06 17:23 | CONS ---
Assessment/Plan Assessment/Plan Hospital Course (Demo Recall) Acute respiratory failure Acute kidney injury on hemodialysis Peripheral arterial disease status post bypass Hypertension Preserved left ventricular ejection fraction echocardiogram January 2019 Off BiPAP Fluid management via hemodialysis as per nephrology Continue statin and aspirin therapy if able to take p.o., if no contraindication, change asa to 81mg daily Titrate blood pressure meds as needed Consultation Date/Type/Reason Admit Date/Time Mar 23, 2019 at 06:13 Initial Consult Date 03/28/19 Type of Consult Cardiology Requesting Provider: MICHELE PARRY MD Date/Time of Note DATE: 04/06/19 TIME: 17:22 24 HR Interval Summary Free Text/Dictation sob is better, no cp,palp Exam/Review of Systems Vital Signs Vitals Vital Signs Date Temp Pulse Resp B/P (MAP) Pulse Ox O2 O2 Flow FiO2 Time Delivery Rate 04/06/19 61 16:00 04/06/19 97.5 11 129/58 98 16:00 (81) 04/06/19 Nasal 2.0 13:20 Cannula 04/05/19 35 08:01 Intake and Output 04/05/19 04/05/19 04/06/19 1515:00 23:00 07:00 IntakeIntake Total 650 ml 240 ml 240 ml OutputOutput Total 50 ml 150 ml BalanceBalance 600 ml 240 ml 90 ml Exam Constitutional: alert, oriented (undergoing hd) Head: normocephalic Respiratory: other (course bs, no wheeze) Cardiovascular: regular rate and rhythm (s1s2) Gastrointestinal: soft, non-tender, bowel sounds Extremities: edema Labs Result Diagram: 04/06/19 0448 04/06/19 0448 Results 24hrs Laboratory Tests Test 04/05/19 20:07 04/05/19 21:23 04/06/19 02:06 04/06/19 04:48 Bedside Glucose 130 119 80 White Blood Count 10.4 # Red Blood Count 3.59 L Hemoglobin 10.4 L Hematocrit 32.5 L Mean Corpuscular 90.5 Volume Mean Corpuscular 29.0 Hemoglobin Mean Corpuscular 32.0 Hemoglobin Concent Red Cell 15.0 H Distribution Width Platelet Count 305 Mean Platelet Volume 10.8 H Immature 1.700 H Granulocytes % Neutrophils % 90.5 H Lymphocytes % 3.3 L Monocytes % 4.5 Eosinophils % 0.0 Basophils % 0.0 Nucleated Red Blood 0.7 H Cells % Immature 0.180 H Granulocytes # Neutrophils # 9.5 H Lymphocytes # 0.3 L Monocytes # 0.5 Eosinophils # 0.0 Basophils # 0.0 Nucleated Red Blood 0.1 H Cells # Sodium Level 131 L Potassium Level 5.3 H Chloride Level 95 L Carbon Dioxide Level 23 Anion Gap 13 Blood Urea Nitrogen 84 H Creatinine 5.54 H Est Glomerular 10 L Filtrat Rate mL/min Glucose Level 68 #L Calcium Level 7.9 L Total Bilirubin 0.3 Direct Bilirubin 0.00 Indirect Bilirubin 0.3 Aspartate Amino 18 Transf (AST/SGOT) Alanine 18 Aminotransferase (AL T/SGPT) Alkaline Phosphatase 81 Total Protein 5.2 L Albumin 2.6 L Globulin 2.60 Albumin/Globulin 1.00 Ratio Test 04/06/19 05:43 04/06/19 06:05 04/06/19 06:15 04/06/19 08:15 Bedside Glucose 69 L 90 97 126 Test 04/06/19 12:14 04/06/19 13:52 04/06/19 16:19 Bedside Glucose 88 71 Prothrombin Time 15.6 H Prothrombin Time 1.2 Ratio INR International 1.23 Normalized Ratio Activated 46.2 H Partial Thromboplast Time Medications Medications Current Medications Aspirin (Aspirin) 325 mg DAILY PO Last administered on 04/06/19 09:33; Admin Dose 325 MG; Start 03/24/19 at 09:00 Atorvastatin Calcium (Lipitor) 40 mg QHS PO Last administered on 04/05/19at 20:14; Admin Dose 40 MG; Start 03/23/19 at 21:00 Linagliptin (Tradjenta) 5 mg DAILY PO Last administered on 04/06/19at 09:34; Ad min Dose 5 MG; Start 03/24/19 at 09:00 Ondansetron HCl (Zofran Inj) 4 mg Q4H PRN IV NAUSEA AND/OR VOMITING Last administered on 04/05/19at 06:29; Admin Dose 4 MG; Start 03/23/19 at 18:00 Hydromorphone HCl (Dilaudid) 2 mg Q4H PRN IV SEVERE PAIN LEVEL 7-10 Last administered on 04/05/19 01:09; Admin Dose 2 MG; Start 03/23/19 at 18:00 Miscellaneous Information 1 ea NOTE XX ; Start 03/23/19 at 18:30 Glucose (Glutose) 15 gm Q15M PRN PO DECREASED GLUCOSE; Start 03/23/19 at 18:30 Glucose (Glutose) 22.5 gm Q15M PRN PO DECREASED GLUCOSE; Start 03/23/19 at 18:30 Dextrose (D50w Syringe) 25 ml Q15M PRN IV DECREASED GLUCOSE; Start 03/23/19 at 18:30 Dextrose (D50w Syringe) 50 ml Q15M PRN IV DECREASED GLUCOSE; Start 03/23/19 at 18:30 Glucagon (Glucagen) 1 mg Q15M PRN IM DECREASED GLUCOSE; Start 03/23/19 at 18:30 Glucose (Glutose) 15 gm Q15M PRN BUCCAL DECREASED GLUCOSE; Start 03/23/19 at 18:30 Epoetin Joseph-epbx (Retacrit (Esrd)) 10,000 unit TuThSa@1700 SC Last administered on 04/05/19at 01:01; Admin Dose 10,000 UNIT; Start 03/24/19 at 17:00 Acetaminophen/ Hydrocodone Bitart ([place] (5/325)) 1 tab Q6H PRN PO .MOD PAIN 4- 6 Last administered on 04/04/19at 01:50; Admin Dose 1 TAB; Start 03/24/19 at 22:30 Albumin Human 100 ml @ 100 mls/hr WITH DIALYSIS PRN IV SBP <90 DURING DIALYSIS Last administered on 03/29/19at 10:43; Admin Dose 100 MLS/HR; Start 03/27/19 at 12:00 Albuterol/ Ipratropium (Duoneb) 3 ml Q4HWA RESP THERAPY HHN Last administered on 04/06/19at 12:05; Admin Dose 3 ML; Start 03/27/19 at 21:00 Magnesium Hydroxide (Milk Of Mag) 30 ml DAILY PRN PO CONSTIPATION Last administered on 03/28/19at 20:48; Admin Dose 30 ML; Start 03/28/19 at 15:30 Heparin Sodium (Porcine) (Heparin (5000 Units/1ml)) 5,000 unit BID SC Last administered on 04/06/19at 09:38; Admin Dose 5,000 UNIT; Start 03/29/19 at 21:00 Metoclopramide HCl (Reglan) 5 mg Q6 IV Last administered on 04/06/19 16:20; Admin Dose 5 MG; Start 03/29/19 at 18:00 Diagnostic Test (Pha) (Accu-Chek) 1 ea 02 XX Last administered on 04/02/19 01:49; Admin Dose 1 EA; Start 04/01/19 at 02:00 Insulin Aspart (Novolog Insulin Pen) NOVOLOG *MODERATE* ALGORITHM WITH MEALS BEDTIME SC Last administered on 04/05/19 16:55; Admin Dose 2 UNIT; Start 03/31/19 at 21:00 Metoclopramide HCl (Reglan) 5 mg Q6H PRN IV NAUSEA; Start 04/01/19 at 09:35 Chlorpromazine (Thorazine) 25 mg BID PRN PO hiccups; Start 04/01/19 at 20:00 Ranitidine HCl (Zantac) 300 mg QHS PO Last administered on 04/05/19 20:13; Admin Dose 300 MG; Start 04/02/19 at 21:00 Docusate Sodium/ Ferrous Fumarate (Angela-Sequels) 1 tab DAILY PO Last administered on 04/06/19 09:33; Admin Dose 1 TAB; Start 04/02/19 at 12:30; Stop 05/02/19 at 12:29 Carvedilol (Coreg) 18.75 mg BID PO Last administered on 04/06/19 09:34; Admin Dose 18.75 MG; Start 04/05/19 at 09:00 Alfuzosin HCl (Uroxatral) 10 mg HS PO Last administered on 04/05/19 20:14; Admin Dose 10 MG; Start 04/05/19 at 21:00 Losartan Potassium (Cozaar) 25 mg QHS PO Last administered on 04/05/19 20:14; Admin Dose 25 MG; Start 04/05/19 at 21:00 Zolpidem Tartrate (Ambien) 5 mg HS PRN PO INSOMNIA Last administered on 04/05/19 21:24; Admin Dose 5 MG; Start 04/05/19 at 21:30 Dextrose 1,000 ml @ 40 mls/hr Q24H IV Last administered on 04/06/19 17:11; Admin Dose 40 MLS/HR; Start 04/06/19 at 17:30; Stop 04/07/19 at 06:00 Insulin Glargine (Lantus) 5 units DAILY@2000 SC ; Start 04/06/19 at 20:00 Methylprednisolone Sodium Succinate (Solu-Medrol) 40 mg Q8 IV ; Start 04/06/19 at 22:00 Insulin Human NPH (Humulin N) 4 unit Q8 SC ; Start 04/06/19 at 22:00 Michele Richard DO Apr 06, 2019 17:23
[2019-04-06] MEDS ORDERED: DEXTROSE 5% 1,000 ML IV SCH (17:30)
[2019-04-06] MEDS ORDERED: LIDOCAINE 1% (MPF) 30 ML INJ ONE (18:17)
[2019-04-06] MEDS ORDERED: BUPIVACAINE 0.5% (SDV) 30 ML INJ ONE (18:17)
[2019-04-06] MEDS ORDERED: POLYMYXIN/BACITRACIN 1L IRRIG ONE (18:18)
--- NOTE | 2019-04-06 18:44 | PREAC ---
Date/Time of Note Date/Time of Note DATE: 04/06/19 TIME: 18:41 Anesthesia Eval and Record Evaluation Time Pre-Procedure Interview DATE: 04/06/19 TIME: 18:41 Age 68 Sex male NPO: 8 hrs Preoperative diagnosis right foot gangrane Planned procedure right matatarsal amputation Past Medical History Past Medical History: Includes Cardio: HTN Endo: Diabetes Renal: ESRD on dialysis, HD last: (today) Surgery & Anesthesia Issues No known issue Meds Anticoagulation: No Beta Sweta within 24 hr: Yes Active Scripts Amoxicillin/Potassium Clav (Amox-Clav 875-125 mg Tablet) 875-125 mg Tab, 1 TAB PO BID for 5 Days, #10 TAB 0 Refills Prov:JOSE PARRY MD 03/18/19 Linagliptin (TRADJENTA) 5 Mg Tablet, 5 MG PO DAILY for 30 Days, #30 TAB 3 Refills Prov:JOSE PARRY MD 03/18/19 Hydrocodone Bit-Acetaminophen (Hydrocodone Bit-APAP) 5-325MG Tablet, 1 TAB PO Q6H PRN for .MOD PAIN 4-6 for 5 Days, #20 TAB 0 Refills Prov:JOSE PARRY MD 03/18/19 Ferrous Sulfate* (Ferrous Sulfate*) 325 Mg Tabec, 325 MG PO TID for 30 Days, #90 TAB 2 Refills Prov:JOSE PARRY MD 03/18/19 Ranitidine Hcl* (Ranitidine Hcl*) 150 Mg Tablet, 150 MG PO DAILY for 30 Days, #30 TAB 5 Refills Prov:JOSE PARRY MD 02/02/19 Metoclopramide Hcl* (Metoclopramide Hcl*) 5 Mg Tablet, 5 MG PO AC MEALS for 30 Days, #90 TAB 5 Refills Prov:JOSE PARRY MD 02/02/19 Carvedilol* (Carvedilol*) 12.5 Mg Tablet, 12.5 MG PO BID for 30 Days, #60 TAB 5 Refills Prov:JOSE PARRY MD 02/02/19 Cilostazol* (Cilostazol*) 100 Mg Tablet, 50 MG PO BID for 30 Days, #30 TAB 5 Refills Prov:JOSE PARRY MD 02/02/19 Reported Medications Glycopyrrolate* (Glycopyrrolate*) 1 Mg Tablet, 1 MG PO BID, TAB 5/16/19 Amlodipine Besylate* (Norvasc*) 5 Mg Tablet, 5 MG PO DAILY, TAB 01/29/19 Ergocalciferol (Vitamin D2) (VITAMIN D2) 50,000 Unit Capsule, 47999 UNIT PO Q FRI, CAP 01/29/19 Atorvastatin* (Atorvastatin*) 40 Mg Tablet, 40 MG PO QHS, #30 TAB 01/29/19 Current Medications Aspirin (Aspirin) 325 mg DAILY PO Last administered on 04/06/19at 09:33; Admin Dose 325 MG; Start 03/24/19 at 09:00 Atorvastatin Calcium (Lipitor) 40 mg QHS PO Last administered on 04/05/19at 20:14; Admin Dose 40 MG; Start 03/23/19 at 21:00 Linagliptin (Tradjenta) 5 mg DAILY PO Last administered on 04/06/19at 09:34; Admin Dose 5 MG; Start 03/24/19 at 09:00 Ondansetron HCl (Zofran Inj) 4 mg Q4H PRN IV NAUSEA AND/OR VOMITING Last administered on 04/05/19at 06:29; Admin Dose 4 MG; Start 03/23/19 at 18:00 Hydromorphone HCl (Dilaudid) 2 mg Q4H PRN IV SEVERE PAIN LEVEL 7-10 Last administered on 04/05/19at 01:09; Admin Dose 2 MG; Start 03/23/19 at 18:00 Miscellaneous Information 1 ea NOTE XX ; Start 03/23/19 at 18:30 Glucose (Glutose) 15 gm Q15M PRN PO DECREASED GLUCOSE; Start 03/23/19 at 18:30 Glucose (Glutose) 22.5 gm Q15M PRN PO DECREASED GLUCOSE; Start 03/23/19 at 18:30 Dextrose (D50w Syringe) 25 ml Q15M PRN IV DECREASED GLUCOSE; Start 03/23/19 at 18:30 Dextrose (D50w Syringe) 50 ml Q15M PRN IV DECREASED GLUCOSE; Start 03/23/19 at 18:30 Glucagon (Glucagen) 1 mg Q15M PRN IM DECREASED GLUCOSE; Start 03/23/19 at 18:30 Glucose (Glutose) 15 gm Q15M PRN BUCCAL DECREASED GLUCOSE; Start 03/23/19 at 18:30 Epoetin Joseph-epbx (Retacrit (Esrd)) 10,000 unit TuThSa@1700 SC Last administered on 04/05/19 01:01; Admin Dose 10,000 UNIT; Start 03/24/19 at 17:00 Acetaminophen/ Hydrocodone Bitart ([place] (5/325)) 1 tab Q6H PRN PO .MOD PAIN 4- 6 Last administered on 04/04/19 01:50; Admin Dose 1 TAB; Start 03/24/19 at 22:30 Albumin Human 100 ml @ 100 mls/hr WITH DIALYSIS PRN IV SBP <90 DURING DIALYSIS Last administered on 03/29/19 10:43; Admin Dose 100 MLS/HR; Start 03/27/19 at 12:00 Albuterol/ Ipratropium (Duoneb) 3 ml Q4HWA RESP THERAPY HHN Last administered on 04/06/19 17:33; Admin Dose 3 ML; Start 03/27/19 at 21:00 Magnesium Hydroxide (Milk Of Mag) 30 ml DAILY PRN PO CONSTIPATION Last adm inistered on 03/28/19 20:48; Admin Dose 30 ML; Start 03/28/19 at 15:30 Heparin Sodium (Porcine) (Heparin (5000 Units/1ml)) 5,000 unit BID SC Last administered on 04/06/19 09:38; Admin Dose 5,000 UNIT; Start 03/29/19 at 21:00 Metoclopramide HCl (Reglan) 5 mg Q6 IV Last administered on 04/06/19 16:20; Admin Dose 5 MG; Start 03/29/19 at 18:00 Diagnostic Test (Pha) (Accu-Chek) 1 ea 02 XX Last administered on 04/02/19 01:49; Admin Dose 1 EA; Start 04/01/19 at 02:00 Insulin Aspart (Novolog Insulin Pen) NOVOLOG *MODERATE* ALGORITHM WITH MEALS BEDTIME SC Last administered on 04/05/19 16:55; Admin Dose 2 UNIT; Start 03/31/19 at 21:00 Metoclopramide HCl (Reglan) 5 mg Q6H PRN IV NAUSEA; Start 04/01/19 at 09:35 Chlorpromazine (Thorazine) 25 mg BID PRN PO hiccups; Start 04/01/19 at 20:00 Ranitidine HCl (Zantac) 300 mg QHS PO Last administered on 04/05/19 20:13; Admin Dose 300 MG; Start 04/02/19 at 21:00 Docusate Sodium/ Ferrous Fumarate (Angela-Sequels) 1 tab DAILY PO Last administered on 04/06/19 09:33; Admin Dose 1 TAB; Start 04/02/19 at 12:30; Stop 05/02/19 at 12:29 Carvedilol (Coreg) 18.75 mg BID PO Last administered on 04/06/19 09:34; Admin Dose 18.75 MG; Start 04/05/19 at 09:00 Alfuzosin HCl (Uroxatral) 10 mg HS PO Last administered on 04/05/19 20:14; Admin Dose 10 MG; Start 04/05/19 at 21:00 Losartan Potassium (Cozaar) 25 mg QHS PO Last administered on 04/05/19 20:14; Admin Dose 25 MG; Start 04/05/19 at 21:00 Zolpidem Tartrate (Ambien) 5 mg HS PRN PO INSOMNIA Last administered on 04/05/19at 21:24; Admin Dose 5 MG; Start 04/05/19 at 21:30 Dextrose 1,000 ml @ 40 mls/hr Q24H IV Last administered on 04/06/19at 17:11; Admin Dose 40 MLS/HR; Start 04/06/19 at 17:30; Stop 04/07/19 at 06:00 Insulin Glargine (Lantus) 5 units DAILY@2000 SC ; Start 04/06/19 at 20:00 Methylprednisolone Sodium Succinate (Solu-Medrol) 40 mg Q8 IV ; Start 04/06/19 at 22:00 Insulin Human NPH (Humulin N) 4 unit Q8 SC ; Start 04/06/19 at 22:00 Meds reviewed: Yes Allergies Coded Allergies: No Known Allergy (Unverified , 04/04/19) Allergies Reviewed: Yes Labs/Studies Labs Reviewed: Reviewed by anesthesiologist Result Diagram: 04/06/19 0448 04/06/19 0448 Laboratory Tests 04/06/19 04:48 test: N/A Studies: ECG (sr), CXR (hyperexpanded lung) Pre-procedure Exam Last vitals Vital Signs Date Temp Pulse Resp B/P (MAP) Pulse Ox O2 O2 Flow FiO2 Time Delivery Rate 04/06/19 63 12 98 Nasal 2.0 17:36 Cannula 04/06/19 129/57 17:00 (81) 04/06/19 97.5 16:00 04/05/19 35 08:01 Airway: Adequate mouth opening Mallampati: Mallampati I Teeth: Normal Lung: Normal Heart: Normal ASA Physical Status ASA physical status: 3 Emergency: None Planned Anesthetic General/MAC: MAC Nerve block: Sciatic (right) Planned Pain Management Single shot nerve block, Parenteral pain med Pre-operative Attestations Prior to commencing anesthesia and surgery, the patient was re-evaluated, there was verification of: *The patient's identity *The results of appropriate recent lab work and preoperative vital signs *The above evaluation not changing prior to induction *Anesthetic plan, risk benefits, alternative and complications discussed with patient/family; questions answered; patient/family understands, accepts and wishes to proceed. FRANTZ MATA MD Apr 06, 2019 18:44
[2019-04-06] MEDS ORDERED: FENTAnyl 50 MCG/ML VIAL IV PRN ×3 (19:00)
[2019-04-06] MEDS ORDERED: ONDANSETRON 4 MG INJ IV PRN (19:00)
[2019-04-06] MEDS ORDERED: PROPOFOL 200 MG INJ ONE (19:00)
[2019-04-06] MEDS ORDERED: LABETALOL HCL 20MG INJ IV PRN (19:00)
[2019-04-06] MEDS ORDERED: ROPIVACAINE 0.5 % 30 ML VIAL ONE (19:00)
[2019-04-06] MEDS ORDERED: DIPHENHYDRAMINE 50 MG INJ IV PRN (19:00)
[2019-04-06] MEDS ORDERED: hydrALAzine 20 MG INJ IV PRN (19:00)
[2019-04-06] MEDS ORDERED: MEPERIDINE 25 MG INJ IV PRN (19:00)
[2019-04-06] MEDS ORDERED: HYDROmorphONE 1 MG/5 ML IV SYRINGE IV PRN ×3 (19:00)
--- NOTE | 2019-04-06 19:00 | PN ---
Date/Time of Note Date/Time of Note DATE: 04/06/19 TIME: 18:58 Assessment/Plan Lines/Catheters IV Catheter Type (from [facility]): EVELIA CATH [place] [facility] [place] (from Nrs): No Assessment/Plan Problems: (1) Gangrene of toe of right foot Status: Acute (2) Peripheral vascular disease of lower extremity Status: Chronic (3) Alcohol abuse, in remission Status: Chronic (4) End stage renal disease on dialysis due to type 2 diabetes mellitus Status: Chronic (5) Diabetes mellitus type 2 with complications Status: Chronic Assessment/Plan Patient is going to the OR for transmetatarsal amputation of the right foot; possible open with wound VAC application. Subjective 24 Hr Interval Summary Patient was seen at bedside. Patient is in no acute distress. Denies overnight adverse events. Denies fever, chills, nausea or vomiting. Denies recent trauma. Constitutional: no complaints Pain Control: well controlled Exam/Review of Systems Vital Signs Vitals Vital Signs Date Temp Pulse Resp B/P (MAP) Pulse Ox O2 O2 Flow FiO2 Time Delivery Rate 04/06/19 63 12 98 Nasal 2.0 17:36 Cannula 04/06/19 129/57 17:00 (81) 04/06/19 97.5 16:00 04/05/19 35 08:01 Intake and Output 04/05/19 04/05/19 04/06/19 1515:00 23:00 07:00 IntakeIntake Total 650 ml 240 ml 240 ml OutputOutput Total 50 ml 150 ml BalanceBalance 600 ml 240 ml 90 ml Exam Free Text/Dictation Gangrene of right forefoot involving all the toes. Tender to palpation; reduced edema and no erythema of the right foot. Weak DP and TP. No other changes noted. Results Result Diagram: 04/06/19 0448 04/06/19 0448 CJ DODD DPM Apr 06, 2019 19:00
[2019-04-06] MEDS ORDERED: CEFAZOLIN 1 GM INJ ONE (19:01)
[2019-04-06] MEDS ORDERED: MIDAZOLAM 1 MG/ML 2 ML INJ ONE (19:02)
--- NOTE | 2019-04-06 20:24 | OPR ---
Date/Time of Note Date/Time of Note DATE: 04/06/19 TIME: 20:24 Operative Report Procedure Date: Apr 06, 2019 Preoperative Diagnosis Gangrene of right forefoot Peripheral vascular disease S/P recent RLE bypass Diabetes mellitus Peripheral neuropathy Postoperative Diagnosis Gangrene of right forefoot Peripheral vascular disease S/P recent RLE bypass Diabetes mellitus Peripheral neuropathy Operation/Procedure Performed Open transmetatarsal amputation of right foot Application of wound VAC to right foot Surgeon see signature line Data Virtualization Consultant None Anesthesia Type: general Estimated Blood Loss: 10 - 50 ml's Transfusion none Specimen Right gangrenous forefoot Grafts/Implants none Tubes/Drains Wound VAC to the right foot Complications none Pt Condition Post Procedure: stable Disposition: PACU Indications This is a pleasant 68 year old male patient with current right forefoot gangrene who has had progressive worsening of his right foot gangrene and peripheral vascular disease and has undergone recent right lower extremity arterial bypass surgery by Dr. Cullen Monaco and has been scheduled for right foot transmetatarsal amputation. Risks and complications of this type of surgery was discussed with patient in great detail. Risks and complications discussed include, but are not limited to, post operative infection, post operative pain, chronic pain and disability, gait disturbance, failure of surgery to correct the problem, need for additional surgical procedures, DVT, limb loss and loss of life. Patient understands the above discussion and agrees to the procedure. An informed consent was obtained, signed and placed in the chart. No guarantee or warrantee was given or implied as to the outcome of the procedure, either in verbal or written form. Procedure Description The patient was seen in the preoperative unit. The proposed surgery was discussed with patient in great detail. Risks and complications of this type of surgery was discussed with patient in great detail. Opportunity was given to patient to ask questions and all questions were answered. The patient acknowledges understanding of the discussion. An informed consent was then obtained, signed and placed in the chart. Patient was taken to the operating room and was placed on the operating table in the supine position. All bony prominences were padded properly. A timeout was called by the circulating nurse. Everyone in the operating room was agreeable to the timeout. The patient was then placed under [general anesthesia] by the anesthesiologist. The right lower extremity was scrubbed, prepped, and draped in the usual aseptic manner. Attention was directed to the right foot. I used a sterile marker and marked my incisions on the right foot dorsally and plantarly. I used a #10 blade and made an incision on dorsal right foot just proximal to the MPJs and a second incision on the plantar right foot just distal the MPJs to the level of pink appearing skin. The incisions were deepened to the bone and bleeders were cauterized as needed using electrocautery. Meticulous care and caution was used. Next, the fiver metatarsals were then prepped for osteotomy. I used a power saw and cut the five metatarsals proximal to the neck area and preserved the normal parabola of the right foot. I carefully dissected and excised the tendinous and ligamentous structures of the forefoot that were exposed. Again, bleeders were cauterized as needed using electrocautery. The wound was flushed with copious amounts of sterile PB saline. A wound VAC was applied to the right forefoot and set to 125mmHg suction. Sterile dressing was applied along with padding of prominent areas. Post operative injection was given; 20 cc of 0.5% Marcaine plain _ ankle block. The patient tolerated procedure and anesthesia well. The patient was transferred to the recovery room with vital signs stable and vascular status intact to remaining right lower extremity. The patient will be sent back to the floor after postoperative monitoring. Patient is to remain non weightbearing on his RIGHT foot. Orders were placed in the chart. Patient will be followed in house. CJ DODD DPM Apr 06, 2019 20:24
--- NOTE | 2019-04-06 20:24 | SIPON ---
Date/Time of Note Date/Time of Note DATE: 04/06/19 TIME: 20:22 Operative Report Preoperative Diagnosis Gangrene of right forefoot Peripheral vascular disease S/P recent RLE bypass Diabetes mellitus Peripheral neuropathy Postoperative Diagnosis Gangrene of right forefoot Peripheral vascular disease S/P recent RLE bypass Diabetes mellitus Peripheral neuropathy Operation/Procedure Performed Open transmetatarsal amputation of the right foot Application of wound VAC right foot Surgeon see signature line foundation assistant None Anesthesia: general Estimated blood loss: 0 - 10 ml's Transfusion Required none Specimen Right forefoot Grafts/Implants none Complications none CJ DODD DPM Apr 06, 2019 20:24
[2019-04-06] MEDS: INSULIN GLARGINE [LANTus] (100 UNITS/ML) SYG SC SCH (20:36)
--- NOTE | 2019-04-06 20:41 | CONS ---
Assessment/Plan Assessment/Plan Hospital Course (Demo Recall) # respiratory, leukocytosis - acute hypoxic resp failure, multifactorial: fluid overload, aspiration pneumonia/pneumonitis, HCAP - leukocytosis, likely d/t steroid margination, improved # nephro, cardiac - acute on chronic renal failure, started on HD since 03/27/19 - placement of a new tunneled catheter on R chest wall 04/06/19 - fluid overload, improves after HD # vascular, orthopedic - h/o 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 2nd toes - h/o amputation of R 5th toe - s/p R TMA with wound VAC placement 04/06/19 - PVD of RLE - h/o percutaneous intervention of RLE in the past - h/o occluded R popliteal artery in doppler in 01/2019 - s/p R SFA to posterior tibial bypass using in situ greater saphenous vein from R thigh and calf on 03/23/2019 - Pt completed meropenem (03/29/2019-04/04/2019), pip/tazo (03/25/19-03/28/19) and IV vancomycin (03/25/19-03/30/19) # other conditions - thrush noted 04/06/19 - DM - Hgb A1c 5.7% - former smoker - constipation recommendations: - ordered: PO fluconazole x 3 days and nystatin swish and spit x 7 days (04/06/19-) - Pt was started on a trial of steroid by pulm service, will monitor WBC level Management d/w patient, RN Leann and RN Kandy the critical care time that I took to care for this Pt today was from 1945 to 2014 Consultation Date/Type/Reason Admit Date/Time Mar 23, 2019 at 06:13 Initial Consult Date 03/28/19 Type of Consult ID Requesting Provider: JOSE PARRY MD Date/Time of Note DATE: 04/06/19 TIME: 20:31 24 HR Interval Summary Free Text/Dictation Had a new HD catheter placed on R chest wall and had R TMA Constitutional: improved Detailed Summary Eyes: no complaints ENT: no complaints Respiratory: no complaints Cardiovascular: no complaints Gastrointestinal: no complaints Genitourinary: other (new HD catheter is working) Musculoskeletal: restricted range of motion (+wound VAC to R foot) Skin: no complaints Neurologic: no complaints Exam/Review of Systems Exam Vitals Vital Signs Date Temp Pulse Resp B/P (MAP) Pulse Ox O2 O2 Flow FiO2 Time Delivery Rate 04/06/19 97.5 20:22 04/06/19 64 18 134/62 100 19:00 (86) 04/06/19 Nasal 2.0 17:36 Cannula 04/05/19 35 08:01 Intake and Output 04/05/19 04/05/19 04/06/19 1515:00 23:00 07:00 IntakeIntake Total 650 ml 240 ml 240 ml OutputOutput Total 50 ml 150 ml BalanceBalance 600 ml 240 ml 90 ml Constitutional: frail Psych: no complaints, nl mood/affect Head: normocephalic, atraumatic Eyes: nl conjunctiva, nl lids, nl sclera ENMT: nl external ears & nose, mucosa pink and moist, other (+thrush) Neck: supple Respiratory: clear to auscultation, normal air movement Cardiovascular: regular rate and rhythm, nl pulses Gastrointestinal: soft, non-tender; No distended, No tender Musculoskeletal: other (s/pR TMA, +wound VAC) Extremities: No edema Neurological: LUMBER SORTER II-XII intact, nl mental status Skin: nl turgor Results Result Diagram: 04/06/198 04/06/198 Results 24hrs Laboratory Tests Test 04/05/19 21:23 04/06/19 02:06 04/06/19 04:48 04/06/19 05:43 Bedside Glucose 119 80 69 L White Blood Count 10.4 # Red Blood Count 3.59 L Hemoglobin 10.4 L Hematocrit 32.5 L Mean Corpuscular 90.5 Volume Mean Corpuscular 29.0 Hemoglobin Mean Corpuscular 32.0 Hemoglobin Concent Red Cell 15.0 H Distribution Width Platelet Count 305 Mean Platelet Volume 10.8 H Immature 1.700 H Granulocytes % Neutrophils % 90.5 H Lymphocytes % 3.3 L Monocytes % 4.5 Eosinophils % 0.0 Basophils % 0.0 Nucleated Red Blood 0.7 H Cells % Immature 0.180 H Granulocytes # Neutrophils # 9.5 H Lymphocytes # 0.3 L Monocytes # 0.5 Eosinophils # 0.0 Basophils # 0.0 Nucleated Red Blood 0.1 H Cells # Sodium Level 131 L Potassium Level 5.3 H Chloride Level 95 L Carbon Dioxide Level 23 Anion Gap 13 Blood Urea Nitrogen 84 H Creatinine 5.54 H Est Glomerular 10 L Filtrat Rate mL/min Glucose Level 68 #L Calcium Level 7.9 L Total Bilirubin 0.3 Direct Bilirubin 0.00 Indirect Bilirubin 0.3 Aspartate Amino 18 Transf (AST/SGOT) Alanine 18 Aminotransferase (AL T/SGPT) Alkaline Phosphatase 81 Total Protein 5.2 L Albumin 2.6 L Globulin 2.60 Albumin/Globulin 1.00 Ratio Test 04/06/19 06:05 04/06/19 06:15 04/06/19 08:15 04/06/19 12:14 Bedside Glucose 90 97 126 88 Test 04/06/19 13:52 04/06/19 16:19 04/06/19 17:14 Prothrombin Time 15.6 H Prothrombin Time 1.2 Ratio INR International 1.23 Normalized Ratio Activated 46.2 H Partial Thromboplast Time Bedside Glucose 71 89 Medications Medication Current Medications Aspirin (Aspirin) 325 mg DAILY PO Last administered on 04/06/19at 09:33; Admin Dose 325 MG; Start 03/24/19 at 09:00 Atorvastatin Calcium (Lipitor) 40 mg QHS PO Last administered on 04/05/19at 20:14; Admin Dose 40 MG; Start 03/23/19 at 21:00 Linagliptin (Tradjenta) 5 mg DAILY PO Last administered on 04/06/19at 09:34; Admin Dose 5 MG; Start 03/24/19 at 09:00 Ondansetron HCl (Zofran Inj) 4 mg Q4H PRN IV NAUSEA AND/OR VOMITING Last a dministered on 04/05/19at 06:29; Admin Dose 4 MG; Start 03/23/19 at 18:00 Hydromorphone HCl (Dilaudid) 2 mg Q4H PRN IV SEVERE PAIN LEVEL 7-10 Last administered on 04/05/19at 01:09; Admin Dose 2 MG; Start 03/23/19 at 18:00 Miscellaneous Information 1 ea NOTE XX ; Start 03/23/19 at 18:30 Glucose (Glutose) 15 gm Q15M PRN PO DECREASED GLUCOSE; Start 03/23/19 at 18:30 Glucose (Glutose) 22.5 gm Q15M PRN PO DECREASED GLUCOSE; Start 03/23/19 at 18:30 Dextrose (D50w Syringe) 25 ml Q15M PRN IV DECREASED GLUCOSE; Start 03/23/19 at 18:30 Dextrose (D50w Syringe) 50 ml Q15M PRN IV DECREASED GLUCOSE; Start 03/23/19 at 18:30 Glucagon (Glucagen) 1 mg Q15M PRN IM DECREASED GLUCOSE; Start 03/23/19 at 18:30 Glucose (Glutose) 15 gm Q15M PRN BUCCAL DECREASED GLUCOSE; Start 03/23/19 at 18:30 Epoetin Joseph-epbx (Retacrit (Esrd)) 10,000 unit TuThSa@1700 SC Last administered on 04/05/19 01:01; Admin Dose 10,000 UNIT; Start 03/24/19 at 17:00 Acetaminophen/ Hydrocodone Bitart ([place] (5/325)) 1 tab Q6H PRN PO .MOD PAIN 4- 6 Last administered on 04/04/19 01:50; Admin Dose 1 TAB; Start 03/24/19 at 22:30 Albumin Human 100 ml @ 100 mls/hr WITH DIALYSIS PRN IV SBP <90 DURING DIALYSIS Last administered on 03/29/19 10:43; Admin Dose 100 MLS/HR; Start 03/27/19 at 12:00 Albuterol/ Ipratropium (Duoneb) 3 ml Q4HWA RESP THERAPY HHN Last administered on 04/06/19 17:33; Admin Dose 3 ML; Start 03/27/19 at 21:00 Magnesium Hydroxide (Milk Of Mag) 30 ml DAILY PRN PO CONSTIPATION Last administered on 03/28/19 20:48; Admin Dose 30 ML; Start 03/28/19 at 15:30 Heparin Sodium (Porcine) (Heparin (5000 Units/1ml)) 5,000 unit BID SC Last administered on 04/06/19 09:38; Admin Dose 5,000 UNIT; Start 03/29/19 at 21:00 Metoclopramide HCl (Reglan) 5 mg Q6 IV Last administered on 04/06/19 16:20; Admin Dose 5 MG; Start 03/29/19 at 18:00 Diagnostic Test (Pha) (Accu-Chek) 1 ea 02 XX Last administered on 04/02/19 01:49; Admin Dose 1 EA; Start 04/01/19 at 02:00 Insulin Aspart (Novolog Insulin Pen) NOVOLOG *MODERATE* ALGORITHM WITH MEALS BEDTIME SC Last administered on 04/05/19 16:55; Admin Dose 2 UNIT; Start 03/31/19 at 21:00 Metoclopramide HCl (Reglan) 5 mg Q6H PRN IV NAUSEA; Start 04/01/19 at 09:35 Chlorpromazine (Thorazine) 25 mg BID PRN PO hiccups; Start 04/01/19 at 20:00 Ranitidine HCl (Zantac) 300 mg QHS PO Last administered on 04/05/19at 20:13; Admin Dose 300 MG; Start 04/02/19 at 21:00 Docusate Sodium/ Ferrous Fumarate (Angela-Sequels) 1 tab DAILY PO Last administered on 04/06/19 09:33; Admin Dose 1 TAB; Start 04/02/19 at 12:30; Stop 05/02/19 at 12:29 Carvedilol (Coreg) 18.75 mg BID PO Last administered on 04/06/19 09:34; Admin Dose 18.75 MG; Start 04/05/19 at 09:00 Alfuzosin HCl (Uroxatral) 10 mg HS PO Last administered on 04/05/19 20:14; Admin Dose 10 MG; Start 04/05/19 at 21:00 Losartan Potassium (Cozaar) 25 mg QHS PO Last administered on 04/05/19at 20:14; Admin Dose 25 MG; Start 04/05/19 at 21:00 Zolpidem Tartrate (Ambien) 5 mg HS PRN PO INSOMNIA Last administered on 04/05/19at 21:24; Admin Dose 5 MG; Start 04/05/19 at 21:30 Dextrose 1,000 ml @ 40 mls/hr Q24H IV Last administered on 04/06/19at 17:11; Admin Dose 40 MLS/HR; Start 04/06/19 at 17:30; Stop 04/07/19 at 06:00 Insulin Glargine (Lantus) 5 units DAILY@2000 SC ; Start 04/06/19 at 20:00 Methylprednisolone Sodium Succinate (Solu-Medrol) 40 mg Q8 IV ; Start 04/06/19 at 22:00 Insulin Human NPH (Humulin N) 4 unit Q8 SC ; Start 04/06/19 at 22:00 Hydromorphone HCl (Dilaudid) 0.2 mg PACU PRN IV MILD PAIN 1-3; Start 04/06/19 at 19:00; Stop 04/06/19 at 23:59 Hydromorphone HCl (Dilaudid) 0.4 mg PACU PRN IV MOD PAIN 4-6; Start 04/06/19 at 19:00; Stop 04/06/19 at 23:59 Hydromorphone HCl (Dilaudid) 0.6 mg PACU PRN IV SEVERE PAIN 7-10; Start 04/06/19 at 19:00; Stop 04/06/19 at 23:59 Fentanyl (Sublimaze) 25 mcg PACU ORDER PRN IV MILD PAIN 1-3; Start 04/06/19 at 19:00; Stop 04/06/19 at 23:59 Fentanyl (Sublimaze) 50 mcg PACU ORDER PRN IV MOD PAIN 4-6; Start 04/06/19 at 19:00; Stop 04/06/19 at 23:59 Fentanyl (Sublimaze) 75 mcg PACU ORDER PRN IV SEVERE PAIN 7-10; Start 04/06/19 at 19:00; Stop 04/06/19 at 23:59 Ondansetron HCl (Zofran Inj) 4 mg PACU ORDER PRN IV NAUSEA/VOMITING; Start 04/06/19 at 19:00; Stop 04/06/19 at 23:59 Labetalol HCl (Labetalol) 5 mg PACU ORDER PRN IV HIGH BLOOD PRESSURE; Start 04/06/19 at 19:00; Stop 04/06/19 at 23:59 Hydralazine HCl (Apresoline) 5 mg PACU ORDER PRN IV HIGH BLOOD PRESSURE; Start 04/06/19 at 19:00; Stop 04/06/19 at 23:59 Meperidine HCl (Demerol) 25 mg PACU ORDER PRN IV .RIGORS; Start 04/06/19 at 19:00; Stop 04/06/19 at 23:59 Diphenhydramine HCl (Benadryl) 25 mg PACU ORDER PRN IV .PRURITUS; Start 04/06/19 at 19:00; Stop 04/06/19 at 23:59 LUDMILA ANTOINE M.D. Apr 06, 2019 20:41
[2019-04-06] MEDS: RANITIDINE 150 MG TAB PO SCH (20:59)
[2019-04-06] MEDS: ATORVASTATIN 40 MG TAB PO SCH (20:59)
[2019-04-06] MEDS: ALFUZOSIN (SR) 10 MG TAB PO SCH (20:59)
[2019-04-06] MEDS: LOSARTAN 25 MG TAB PO SCH (21:00)
[2019-04-06] MEDS: FLUCONAZOLE 100 MG TAB PO SCH (21:00)
[2019-04-06] MEDS: NYSTATIN SUSP 5 ML CUP PO SCH (22:09)
[2019-04-06] MEDS: METHYLPREDNISOLONE 40 MG INJ IV SCH (22:10)
[2019-04-06] MEDS: ZOLPIDEM 5 MG TAB PO PRN (22:19)
[2019-04-07] VITALS (34 sets, daily range): BP systolic 90–142; BP diastolic 52–69; PULSE 59–88; RESP 10–23
[2019-04-07] MEDS: METOCLOPRAMIDE 10 MG INJ IV SCH ×5 (00:25→23:31)
[2019-04-07] MEDS: ACCU-CHEK XX SCH (02:00)
[2019-04-07] MEDS: METHYLPREDNISOLONE 40 MG INJ IV SCH ×2 (06:39→21:03)
[2019-04-07] MEDS: NYSTATIN SUSP 5 ML CUP PO SCH ×3 (06:39→21:07)
[2019-04-07] MEDS: NPH, HUMAN INSULIN ISOPHANE 3ML VIAL SC SCH ×2 (06:40→21:03)
[2019-04-07] MEDS: INSULIN ASPART [NOVOLOG] 3 ML PEN SC SCH ×4 (07:35→21:01)
--- NOTE | 2019-04-07 07:36 | PAC ---
Date/Time of Note Date/Time of Note DATE: 04/07/19 TIME: 07:36 Post-Anesthesia Notes Post-Anesthesia Note Last documented vital signs Vital Signs Date Temp Pulse Resp B/P (MAP) Pulse Ox O2 O2 Flow FiO2 Time Delivery Rate 04/07/19 98.2 60 15 114/64 99 Nasal 2.0 06:00 (81) Cannula 04/07/19 98.2 04:00 04/05/19 35 08:01 Activity: WNL Respiratory function: WNL Cardiovascular function: WNL Mental status: Baseline Pain reasonably controlled: Yes Hydration appropriate: Yes Nausea/Vomiting absent: No FRANTZ MATA MD Apr 07, 2019 07:36
[2019-04-07] MEDS: ALBUTEROL/IPRATROPIUM (NEB) 3 ML AMP HHN SCH ×4 (08:27→22:10)
[2019-04-07] MEDS: FLUCONAZOLE 100 MG TAB PO SCH (08:28)
[2019-04-07] MEDS: LINAGLIPTIN 5 MG TABLET PO SCH (08:28)
[2019-04-07] MEDS: FERROUS FUMARATE (SR) TAB PO SCH (08:28)
[2019-04-07] MEDS: ASPIRIN 325 MG TAB PO SCH (08:28)
[2019-04-07] MEDS: HEPARIN 5,000 UNIT/1 ML VIAL SC SCH ×2 (08:30→21:01)
--- NOTE | 2019-04-07 08:32 | CONS ---
Assessment/Plan Assessment/Plan Assessment/Plan 1. CKD-to be dilalyzed today 2. Post op podiatric surgery yesterday 3. Anemia is stable 4. BP is controlled 5. CHO control is excellent 6. Elev P, will start P binder 7. Need remove vasc cath right groin 8. Can transfer to floor if ok with all Consultation Date/Type/Reason Admit Date/Time Mar 23, 2019 at 06:13 Type of Consult Nephrology Date/Time of Note DATE: 04/07/19 TIME: 08:30 Respiratory: No cough, No shortness of breath Cardiovascular: No chest pain Gastrointestinal: no complaints Genitourinary: no complaints Exam/Review of Systems Vital Signs Vitals Vital Signs Date Temp Pulse Resp B/P (MAP) Pulse Ox O2 O2 Flow FiO2 Time Delivery Rate 04/07/19 60 15 114/64 99 Nasal 2.0 06:00 (81) Cannula 04/07/19 98.2 04:00 04/05/19 35 08:01 Intake and Output 04/06/19 04/06/19 04/07/19 1515:00 23:00 07:00 IntakeIntake Total 480 ml 340 ml 280 ml OutputOutput Total 2400 ml 10 ml BalanceBalance -1920 ml 330 ml 280 ml Exam Neck: No jvd Respiratory: clear to auscultation, diminished breath sounds Cardiovascular: regular rate and rhythm Gastrointestinal: soft Extremities: edema (1+ sacral edema) Labs Result Diagram: 04/07/193 04/07/193 Results 24hrs Laboratory Tests Test 04/06/19 12:14 04/06/19 13:52 04/06/19 16:19 04/06/19 17:14 Bedside Glucose 88 71 89 Prothrombin Time 15.6 H Prothrombin Time 1.2 Ratio INR International 1.23 Normalized Ratio Activated 46.2 H Partial Thromboplast Time Test 04/06/19 20:30 04/06/19 22:08 04/07/19 04:43 04/07/19 06:38 Bedside Glucose 92 143 94 White Blood Count 13.9 #H Red Blood Count 3.39 L Hemoglobin 10.2 L Hematocrit 30.9 L Mean Corpuscular 91.2 Volume Mean Corpuscular 30.1 Hemoglobin Mean Corpuscular 33.0 Hemoglobin Concent Red Cell 15.9 H Distribution Width Platelet Count 256 Mean Platelet Volume 10.8 H Immature 0.700 H Granulocytes % Neutrophils % 91.8 H Lymphocytes % 1.5 L Monocytes % 5.8 Eosinophils % 0.1 Basophils % 0.1 Nucleated Red Blood 0.4 H Cells % Immature 0.100 H Granulocytes # Neutrophils # 12.8 H Lymphocytes # 0.2 L Monocytes # 0.8 Eosinophils # 0.0 Basophils # 0.0 Nucleated Red Blood 0.1 H Cells # Sodium Level 131 L Potassium Level 4.3 Chloride Level 97 Carbon Dioxide Level 24 Anion Gap 10 Blood Urea Nitrogen 58 H Creatinine 4.23 #H Est Glomerular 14 L Filtrat Rate mL/min Glucose Level 92 Calcium Level 7.7 L Phosphorus Level 7.3 H Test 04/07/19 07:52 Bedside Glucose 84 Medications Medications Current Medications Aspirin (Aspirin) 325 mg DAILY PO Last administered on 04/06/19at 09:33; Admin Dose 325 MG; Start 03/24/19 at 09:00 Atorvastatin Calcium (Lipitor) 40 mg QHS PO Last administered on 04/06/19at 20:5 9; Admin Dose 40 MG; Start 03/23/19 at 21:00 Linagliptin (Tradjenta) 5 mg DAILY PO Last administered on 04/06/19at 09:34; Admin Dose 5 MG; Start 03/24/19 at 09:00 Ondansetron HCl (Zofran Inj) 4 mg Q4H PRN IV NAUSEA AND/OR VOMITING Last administered on 04/05/19at 06:29; Admin Dose 4 MG; Start 03/23/19 at 18:00 Hydromorphone HCl (Dilaudid) 2 mg Q4H PRN IV SEVERE PAIN LEVEL 7-10 Last administered on 04/05/19at 01:09; Admin Dose 2 MG; Start 03/23/19 at 18:00 Miscellaneous Information 1 ea NOTE XX ; Start 03/23/19 at 18:30 Glucose (Glutose) 15 gm Q15M PRN PO DECREASED GLUCOSE; Start 03/23/19 at 18:30 Glucose (Glutose) 22.5 gm Q15M PRN PO DECREASED GLUCOSE; Start 03/23/19 at 18:30 Dextrose (D50w Syringe) 25 ml Q15M PRN IV DECREASED GLUCOSE; Start 03/23/19 at 18:30 Dextrose (D50w Syringe) 50 ml Q15M PRN IV DECREASED GLUCOSE; Start 03/23/19 at 18:30 Glucagon (Glucagen) 1 mg Q15M PRN IM DECREASED GLUCOSE; Start 03/23/19 at 18:30 Glucose (Glutose) 15 gm Q15M PRN BUCCAL DECREASED GLUCOSE; Start 03/23/19 at 18:30 Epoetin Joseph-epbx (Retacrit (Esrd)) 10,000 unit TuThSa@1700 SC Last administered on 04/05/19 01:01; Admin Dose 10,000 UNIT; Start 03/24/19 at 17:00 Acetaminophen/ Hydrocodone Bitart ([place] (5/325)) 1 tab Q6H PRN PO .MOD PAIN 4- 6 Last administered on 04/04/19 01:50; Admin Dose 1 TAB; Start 03/24/19 at 22:30 Albumin Human 100 ml @ 100 mls/hr WITH DIALYSIS PRN IV SBP <90 DURING DIALYSIS Last administered on 03/29/19 10:43; Admin Dose 100 MLS/HR; Start 03/27/19 at 12:00 Albuterol/ Ipratropium (Duoneb) 3 ml Q4HWA RESP THERAPY HHN Last administered on 04/07/19 08:27; Admin Dose 3 ML; Start 03/27/19 at 21:00 Magnesium Hydroxide (Milk Of Mag) 30 ml DAILY PRN PO CONSTIPATION Last administered on 03/28/19 20:48; Admin Dose 30 ML; Start 03/28/19 at 15:30 Heparin Sodium (Porcine) (Heparin (5000 Units/1ml)) 5,000 unit BID SC Last administered on 04/06/19 21:04; Admin Dose 5,000 UNIT; Start 03/29/19 at 21:00 Metoclopramide HCl (Reglan) 5 mg Q6 IV Last administered on 04/07/19 06:39; Admin Dose 5 MG; Start 03/29/19 at 18:00 Diagnostic Test (Pha) (Accu-Chek) 1 ea 02 XX Last administered on 04/02/19 01:49; Admin Dose 1 EA; Start 04/01/19 at 02:00 Insulin Aspart (Novolog Insulin Pen) NOVOLOG *MODERATE* ALGORITHM WITH MEALS BEDTIME SC Last administered on 04/05/19 16:55; Admin Dose 2 UNIT; Start 03/31/19 at 21:00 Metoclopramide HCl (Reglan) 5 mg Q6H PRN IV NAUSEA; Start 04/01/19 at 09:35 Chlorpromazine (Thorazine) 25 mg BID PRN PO hiccups; Start 04/01/19 at 20:00 Ranitidine HCl (Zantac) 300 mg QHS PO Last administered on 04/06/19 20:59; Admin Dose 300 MG; Start 04/02/19 at 21:00 Docusate Sodium/ Ferrous Fumarate (Angela-Sequels) 1 tab DAILY PO Last admini stered on 04/06/19 09:33; Admin Dose 1 TAB; Start 04/02/19 at 12:30; Stop 05/02/19 at 12:29 Carvedilol (Coreg) 18.75 mg BID PO Last administered on 04/06/19 21:00; Admin Dose 18.75 MG; Start 04/05/19 at 09:00 Alfuzosin HCl (Uroxatral) 10 mg HS PO Last administered on 04/06/19 20:59; Admin Dose 10 MG; Start 04/05/19 at 21:00 Losartan Potassium (Cozaar) 25 mg QHS PO Last administered on 04/06/19 21:00; Admin Dose 25 MG; Start 04/05/19 at 21:00 Zolpidem Tartrate (Ambien) 5 mg HS PRN PO INSOMNIA Last administered on 04/06/19 22:19; Admin Dose 5 MG; Start 04/05/19 at 21:30 Insulin Glargine (Lantus) 5 units DAILY@2000 SC Last administered on 04/06/19at 20:36; Admin Dose 5 UNITS; Start 04/06/19 at 20:00 Methylprednisolone Sodium Succinate (Solu-Medrol) 40 mg Q8 IV Last administered on 04/07/19 06:39; Admin Dose 40 MG; Start 04/06/19 at 22:00 Insulin Human NPH (Humulin N) 4 unit Q8 SC Last administered on 04/07/19 06:40; Admin Dose 4 UNIT; Start 04/06/19 at 22:00 Fluconazole (Diflucan) 100 mg DAILY PO Last administered on 04/06/19 21:00; Admin Dose 100 MG; Start 04/06/19 at 20:30; Stop 04/09/19 at 20:29 Nystatin (Nystatin Susp) 5 ml Q8 PO Last administered on 04/07/19at 06:39; Admin Dose 5 ML; Start 04/06/19 at 22:00; Stop 04/13/19 at 21:59 DOT ASHLEY MD Apr 07, 2019 08:32
[2019-04-07] MEDS: MULTIVIT/CA CARB/B CMPLX/FA TAB PO SCH (09:25)
--- NOTE | 2019-04-07 10:23 | PN ---
Date/Time of Note Date/Time of Note DATE: 04/07/19 TIME: 10:23 Assessment/Plan Lines/Catheters IV Catheter Type (from Nrs): Kalyan Catheter River in Place (from Nrs): No Assessment/Plan Problems: (1) Status post transmetatarsal amputation of right foot Onset Date: ~ 04/06/2019 Status: Chronic (2) Diabetes mellitus type 2 with complications Status: Chronic (3) End stage renal disease on dialysis due to type 2 diabetes mellitus Status: Chronic (4) Peripheral vascular disease of lower extremity Status: Chronic (5) Essential (primary) hypertension Status: Chronic Assessment/Plan Normal postop; changed bandages. D/C planning. Subjective 24 Hr Interval Summary POD 1 s/p right foot open TMA with wound VAC application. Constitutional: no complaints Pain Control: well controlled Exam/Review of Systems Vital Signs Vitals Exam Free Text/Dictation S/P TMA right foot; doing well; no bleeding; no pus and no tenderness to exam. No other changes noted. CJ DODD DPM Apr 07, 2019 10:23
--- NOTE | 2019-04-07 10:55 | CONS ---
Assessment/Plan Assessment/Plan Assessment/Plan (Daily) Chest x-ray is showing patchy right upper lobe infiltrative changes. Assessment and recommendations; 1. Patient admitted with severe peripheral vascular disease status post right femoropopliteal bypass with right foot 3 toe amputation. 2. Possibly right upper lobe pneumonia. Currently on appropriate antimicrobial regimen. 3. End-stage renal disease, dialysis dependent. 4. History of hypertension. 5. BPH. 6. History of diabetes. Continue current supportive care. Decrease Solu-Medrol to 30 mg every 12 hours with further reduction in dosage in 24 hours. Obtain follow-up chest x-ray in 48 hours. Patient also can be transferred to medical floor. Hemodialysis per balloon dipper. Consultation Date/Type/Reason Admit Date/Time Mar 23, 2019 at 06:13 Initial Consult Date 03/28/19 Type of Consult Pulmonary Patient's condition is stable. Remains awake and alert. Denies any shortness of breath, fever, chest pain, any sputum production or wheezing. General exam; elderly male, awake alert, currently in no distress. Watching TV. Reason for Consultation H EENT exam; supple neck, no JVD. No lymphadenopathy. Midline trachea. No thyromegaly. Patient has good dentition. No neck masses. Chest exam; clear to auscultation. S1-S2 audible, no murmurs. Regular rhythm. Abdomen exam; soft, nontender. No organomegaly. Bowel sounds audible. Extremity exam; dressing applied to right lower extremity. Dressing also applied to right foot. 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 Requesting Provider: JOSE PARRY MD Date/Time of Note DATE: 04/07/19 TIME: 10:52 Exam/Review of Systems Exam Vitals Vital Signs Date Temp Pulse Resp B/P (MAP) Pulse Ox O2 O2 Flow FiO2 Time Delivery Rate 04/07/19 68 14 110/58 96 Nasal 10:00 (75) Cannula 04/07/19 2.0 08:37 04/07/19 98.4 08:00 04/05/19 35 08:01 Intake and Output 04/06/19 04/06/19 04/07/19 1515:00 23:00 07:00 IntakeIntake Total 480 ml 340 ml 280 ml OutputOutput Total 2400 ml 10 ml BalanceBalance -1920 ml 330 ml 280 ml Results Result Diagram: 04/07/19 0443 04/07/19 0443 Results 24hrs Laboratory Tests Test 04/06/19 12:14 04/06/19 13:52 04/06/19 16:19 04/06/19 17:14 Bedside Glucose 88 71 89 Prothrombin Time 15.6 H Prothrombin Time 1.2 Ratio INR International 1.23 Normalized Ratio Activated 46.2 H Partial Thromboplast Time Test 04/06/19 20:30 04/06/19 22:08 04/07/19 04:43 04/07/19 06:38 Bedside Glucose 92 143 94 White Blood Count 13.9 #H Red Blood Count 3.39 L Hemoglobin 10.2 L Hematocrit 30.9 L Mean Corpuscular 91.2 Volume Mean Corpuscular 30.1 Hemoglobin Mean Corpuscular 33.0 Hemoglobin Concent Red Cell 15.9 H Distribution Width Platelet Count 256 Mean Platelet Volume 10.8 H Immature 0.700 H Granulocytes % Neutrophils % 91.8 H Lymphocytes % 1.5 L Monocytes % 5.8 Eosinophils % 0.1 Basophils % 0.1 Nucleated Red Blood 0.4 H Cells % Immature 0.100 H Granulocytes # Neutrophils # 12.8 H Lymphocytes # 0.2 L Monocytes # 0.8 Eosinophils # 0.0 Basophils # 0.0 Nucleated Red Blood 0.1 H Cells # Sodium Level 131 L Potassium Level 4.3 Chloride Level 97 Carbon Dioxide Level 24 Anion Gap 10 Blood Urea Nitrogen 58 H Creatinine 4.23 #H Est Glomerular 14 L Filtrat Rate mL/min Glucose Level 92 Calcium Level 7.7 L Phosphorus Level 7.3 H Test 04/07/19 07:52 Bedside Glucose 84 Medications Medication Current Medications Aspirin (Aspirin) 325 mg DAILY PO Last administered on 04/07/19at 08:28; Admin Dose 325 MG; Start 03/24/19 at 09:00 Atorvastatin Calcium (Lipitor) 40 mg QHS PO Last administered on 04/06/19at 20:59; Admin Dose 40 MG; Start 03/23/19 at 21:00 Linagliptin (Tradjenta) 5 mg DAILY PO Last administered on 04/07/19 08:28; Admin Dose 5 MG; Start 03/24/19 at 09:00 Ondansetron HCl (Zofran Inj) 4 mg Q4H PRN IV NAUSEA AND/OR VOMITING Last administered on 04/05/19at 06:29; Admin Dose 4 MG; Start 03/23/19 at 18:00 Hydromorphone HCl (Dilaudid) 2 mg Q4H PRN IV SEVERE PAIN LEVEL 7-10 Last administered on 04/05/19 01:09; Admin Dose 2 MG; Start 03/23/19 at 18:00 Miscellaneous Information 1 ea NOTE XX ; Start 03/23/19 at 18:30 Glucose (Glutose) 15 gm Q15M PRN PO DECREASED GLUCOSE; Start 03/23/19 at 18:30 Glucose (Glutose) 22.5 gm Q15M PRN PO DECREASED GLUCOSE; Start 03/23/19 at 18:30 Dextrose (D50w Syringe) 25 ml Q15M PRN IV DECREASED GLUCOSE; Start 03/23/19 at 18:30 Dextrose (D50w Syringe) 50 ml Q15M PRN IV DECREASED GLUCOSE; Start 03/23/19 at 18:30 Glucagon (Glucagen) 1 mg Q15M PRN IM DECREASED GLUCOSE; Start 03/23/19 at 18:30 Glucose (Glutose) 15 gm Q15M PRN BUCCAL DECREASED GLUCOSE; Start 03/23/19 at 18:30 Epoetin Joseph-epbx (Retacrit (Esrd)) 10,000 unit TuThSa@1700 SC Last administered on 04/05/19 01:01; Admin Dose 10,000 UNIT; Start 03/24/19 at 17:00 Acetaminophen/ Hydrocodone Bitart ([place] (5/325)) 1 tab Q6H PRN PO .MOD PAIN 4- 6 Last administered on 04/04/19 01:50; Admin Dose 1 TAB; Start 03/24/19 at 22:30 Albumin Human 100 ml @ 100 mls/hr WITH DIALYSIS PRN IV SBP <90 DURING DIALYSIS Last administered on 03/29/19 10:43; Admin Dose 100 MLS/HR; Start 03/27/19 at 12:00 Albuterol/ Ipratropium (Duoneb) 3 ml Q4HWA RESP THERAPY HHN Last administered on 04/07/19 08:27; Admin Dose 3 ML; Start 03/27/19 at 21:00 Magnesium Hydroxide (Milk Of Mag) 30 ml DAILY PRN PO CONSTIPATION Last administered on 03/28/19 20:48; Admin Dose 30 ML; Start 03/28/19 at 15:30 Heparin Sodium (Porcine) (Heparin (5000 Units/1ml)) 5,000 unit BID SC Last a dministered on 04/07/19 08:30; Admin Dose 5,000 UNIT; Start 03/29/19 at 21:00 Metoclopramide HCl (Reglan) 5 mg Q6 IV Last administered on 04/07/19 06:39; Admin Dose 5 MG; Start 03/29/19 at 18:00 Diagnostic Test (Pha) (Accu-Chek) 1 ea 02 XX Last administered on 04/02/19 01:49; Admin Dose 1 EA; Start 04/01/19 at 02:00 Insulin Aspart (Novolog Insulin Pen) NOVOLOG *MODERATE* ALGORITHM WITH MEALS BEDTIME SC Last administered on 04/05/19 16:55; Admin Dose 2 UNIT; Start 03/31/19 at 21:00 Metoclopramide HCl (Reglan) 5 mg Q6H PRN IV NAUSEA; Start 04/01/19 at 09:35 Chlorpromazine (Thorazine) 25 mg BID PRN PO hiccups; Start 04/01/19 at 20:00 Ranitidine HCl (Zantac) 300 mg QHS PO Last administered on 04/06/19 20:59; Admin Dose 300 MG; Start 04/02/19 at 21:00 Docusate Sodium/ Ferrous Fumarate (Angela-Sequels) 1 tab DAILY PO Last administered on 04/07/19 08:28; Admin Dose 1 TAB; Start 04/02/19 at 12:30; Stop 05/02/19 at 12:29 Carvedilol (Coreg) 18.75 mg BID PO Last administered on 04/07/19 08:29; Admin Dose 18.75 MG; Start 04/05/19 at 09:00 Alfuzosin HCl (Uroxatral) 10 mg HS PO Last administered on 04/06/19 20:59; Admin Dose 10 MG; Start 04/05/19 at 21:00 Losartan Potassium (Cozaar) 25 mg QHS PO Last administered on 04/06/19 21:00; Admin Dose 25 MG; Start 04/05/19 at 21:00 Zolpidem Tartrate (Ambien) 5 mg HS PRN PO INSOMNIA Last administered on 04/06/19 22:19; Admin Dose 5 MG; Start 04/05/19 at 21:30 Insulin Glargine (Lantus) 5 units DAILY@2000 SC Last administered on 04/06/19at 20:36; Admin Dose 5 UNITS; Start 04/06/19 at 20:00 Methylprednisolone Sodium Succinate (Solu-Medrol) 40 mg Q8 IV Last administered on 04/07/19 06:39; Admin Dose 40 MG; Start 04/06/19 at 22:00 Insulin Human NPH (Humulin N) 4 unit Q8 SC Last administered on 04/07/19 06:40; Admin Dose 4 UNIT; Start 04/06/19 at 22:00 Fluconazole (Diflucan) 100 mg DAILY PO Last administered on 04/07/19 08:28; Admin Dose 100 MG; Start 04/06/19 at 20:30; Stop 04/09/19 at 20:29 Nystatin (Nystatin Susp) 5 ml Q8 PO Last administered on 04/07/19 06:39; Admin Dose 5 ML; Start 04/06/19 at 22:00; Stop 04/13/19 at 21:59 Calcium Acetate (Phoslo) 667 mg WITH MEALS PO ; Start 04/07/19 at 11:30 Multivit/Ca Carb/ B Cmplx/FA/Prenat (Gilda-Jennifer) 1 tab DAILY PO Last administered on 04/07/19 09:25; Admin Dose 1 TAB; Start 04/07/19 at 09:00 CELSO ALLEN Apr 07, 2019 10:55
[2019-04-07] MEDS: CALCIUM ACETATE 667 MG CAP PO SCH ×2 (11:23→17:08)
[2019-04-07] MEDS: ALBUMIN HUMAN 25% 100 ML IV PRN (12:34)
--- NOTE | 2019-04-07 12:57 | PN ---
Date/Time of Note Date/Time of Note DATE: 04/07/19 TIME: 12:52 Assessment/Plan VTE Prophylaxis Risk score (from Ns)>0 risk: 13 SCD applied (from [facility]): No SCD contraindicated: bilateral LE trauma Pharmacological prophylaxis: heparin Lines/Catheters IV Catheter Type (from [facility]): Peripheral IV Urinary Cath still in place: No Assessment/Plan Problems: (1) Status post transmetatarsal amputation of right foot Status: Acute Comment: Patient is successfully post TMA. He has a wound VAC in place. At this point he is stable for transfer to a different part of the hospital (2) Diabetes mellitus type 2 with complications Status: Chronic Comment: Adequate glycemic control. Please notice the steroids are coming down my need to have the NPH insulin dosed simultaneous with the steroids of course will also change. I have rewritten the orders and making sure to link them together. (3) End stage renal disease on dialysis due to type 2 diabetes mellitus Status: Chronic Comment: As per nephrology. He will need to be set up for outpatient hemodialysis. The femoral dialysis catheter is being removed now (4) Diabetes, polyneuropathy Status: Chronic Comment: Noted. Qualifiers: Diabetes mellitus type: type 2 Qualified Codes: E11.42 - Type 2 diabetes mellitus with diabetic polyneuropathy (5) Essential (primary) hypertension Status: Chronic Comment: Adequate control (6) Peripheral vascular disease of lower extremity Status: Chronic Comment: Noted and status post revascularization procedures (7) Acute respiratory failure with hypoxia Status: Acute Comment: Improving nicely. Pulmonary has decreased the dosage on the steroids. This should be able to come off of steroids in the near future. Please note the NPH insulin needs to change at the same time the steroids change (8) Hyperlipidemia Status: Chronic Comment: Adequate control Qualifiers: Hyperlipidemia type: pure hypercholesterolemia Qualified Codes: E78.00 - Pure hypercholesterolemia, unspecified (9) Benign prostatic hyperplasia with urinary obstruction Status: Chronic Comment: On medical treatment (10) Vitamin D deficiency Status: Chronic Comment: Noted. Result Diagram: 04/07/19 0443 04/07/19 0443 Results 24hrs Laboratory Tests Test 04/06/19 13:52 04/06/19 16:19 04/06/19 17:14 04/06/19 20:30 Prothrombin Time 15.6 H Prothrombin Time 1.2 Ratio INR International 1.23 Normalized Ratio Activated 46.2 H Partial Thromboplast Time Bedside Glucose 71 89 92 Test 04/06/19 22:08 04/07/19 04:43 04/07/19 06:38 04/07/19 07:52 Bedside Glucose 143 94 84 White Blood Count 13.9 #H Red Blood Count 3.39 L Hemoglobin 10.2 L Hematocrit 30.9 L Mean Corpuscular 91.2 Volume Mean Corpuscular 30.1 Hemoglobin Mean Corpuscular 33.0 Hemoglobin Concent Red Cell 15.9 H Distribution Width Platelet Count 256 Mean Platelet Volume 10.8 H Immature 0.700 H Granulocytes % Neutrophils % 91.8 H Lymphocytes % 1.5 L Monocytes % 5.8 Eosinophils % 0.1 Basophils % 0.1 Nucleated Red Blood 0.4 H Cells % Immature 0.100 H Granulocytes # Neutrophils # 12.8 H Lymphocytes # 0.2 L Monocytes # 0.8 Eosinophils # 0.0 Basophils # 0.0 Nucleated Red Blood 0.1 H Cells # Sodium Level 131 L Potassium Level 4.3 Chloride Level 97 Carbon Dioxide Level 24 Anion Gap 10 Blood Urea Nitrogen 58 H Creatinine 4.23 #H Est Glomerular 14 L Filtrat Rate mL/min Glucose Level 92 Calcium Level 7.7 L Phosphorus Level 7.3 H Test 04/07/19 11:21 Bedside Glucose 127 CC: WALTER LOWERY MD; CJ DODD DPM; LUDMILA ANTOINE M.D.; CELSO ALLEN ; Subjective 24 Hr Interval Summary Free Text/Dictation Patient reports he is feeling much better and has much better breathing. Constitutional: no complaints (Denies fevers chills or sweats) Eyes: no complaints (No new issues) Respiratory: no complaints (At baseline) Cardiovascular: no complaints Gastrointestinal: no complaints Neurologic: no complaints Exam/Review of Systems Exam Vitals Vital Signs Date Temp Pulse Resp B/P (MAP) Pulse Ox O2 O2 Flow FiO2 Time Delivery Rate 04/07/19 98.7 65 16 114/58 100 Nasal 12:00 (76) Cannula 04/07/19 2.0 08:37 04/05/19 35 08:01 Intake and Output 04/06/19 04/06/19 04/07/19 1515:00 23:00 07:00 IntakeIntake Total 480 ml 340 ml 280 ml OutputOutput Total 2400 ml 10 ml BalanceBalance -1920 ml 330 ml 280 ml Constitutional: alert, oriented Respiratory: clear to auscultation, normal air movement Cardiovascular: regular rate and rhythm, nl pulses Gastrointestinal: soft, nl liver, spleen, non-tender Results Results 24hrs Laboratory Tests Test 04/06/19 13:52 04/06/19 16:19 04/06/19 17:14 04/06/19 20:30 Prothrombin Time 15.6 H Prothrombin Time 1.2 Ratio INR International 1.23 Normalized Ratio Activated 46.2 H Partial Thromboplast Time Bedside Glucose 71 89 92 Test 04/06/19 22:08 04/07/19 04:43 04/07/19 06:38 04/07/19 07:52 Bedside Glucose 143 94 84 White Blood Count 13.9 #H Red Blood Count 3.39 L Hemoglobin 10.2 L Hematocrit 30.9 L Mean Corpuscular 91.2 Volume Mean Corpuscular 30.1 Hemoglobin Mean Corpuscular 33.0 Hemoglobin Concent Red Cell 15.9 H Distribution Width Platelet Count 256 Mean Platelet Volume 10.8 H Immature 0.700 H Granulocytes % Neutrophils % 91.8 H Lymphocytes % 1.5 L Monocytes % 5.8 Eosinophils % 0.1 Basophils % 0.1 Nucleated Red Blood 0.4 H Cells % Immature 0.100 H Granulocytes # Neutrophils # 12.8 H Lymphocytes # 0.2 L Monocytes # 0.8 Eosinophils # 0.0 Basophils # 0.0 Nucleated Red Blood 0.1 H Cells # Sodium Level 131 L Potassium Level 4.3 Chloride Level 97 Carbon Dioxide Level 24 Anion Gap 10 Blood Urea Nitrogen 58 H Creatinine 4.23 #H Est Glomerular 14 L Filtrat Rate mL/min Glucose Level 92 Calcium Level 7.7 L Phosphorus Level 7.3 H Test 04/07/19 11:21 Bedside Glucose 127 Medications Medication Current Medications Aspirin (Aspirin) 325 mg DAILY PO Last administered on 04/07/19at 08:28; Admin Dose 325 MG; Start 03/24/19 at 09:00 Atorvastatin Calcium (Lipitor) 40 mg QHS PO Last administered on 04/06/19at 20:59; Admin Dose 40 MG; Start 03/23/19 at 21:00 Linagliptin (Tradjenta) 5 mg DAILY PO Last administered on 04/07/19at 08:28; Admin Dose 5 MG; Start 03/24/19 at 09:00 Ondansetron HCl (Zofran Inj) 4 mg Q4H PRN IV NAUSEA AND/OR VOMITING Last administered on 04/05/19at 06:29; Admin Dose 4 MG; Start 03/23/19 at 18:00 Hydromorphone HCl (Dilaudid) 2 mg Q4H PRN IV SEVERE PAIN LEVEL 7-10 Last administered on 04/05/19 01:09; Admin Dose 2 MG; Start 03/23/19 at 18:00 Miscellaneous Information 1 ea NOTE XX ; Start 03/23/19 at 18:30 Glucose (Glutose) 15 gm Q15M PRN PO DECREASED GLUCOSE; Start 03/23/19 at 18:30 Glucose (Glutose) 22.5 gm Q15M PRN PO DECREASED GLUCOSE; Start 03/23/19 at 18:30 Dextrose (D50w Syringe) 25 ml Q15M PRN IV DECREASED GLUCOSE; Start 03/23/19 at 18:30 Dextrose (D50w Syringe) 50 ml Q15M PRN IV DECREASED GLUCOSE; Start 03/23/19 at 18:30 Glucagon (Glucagen) 1 mg Q15M PRN IM DECREASED GLUCOSE; Start 03/23/19 at 18:30 Glucose (Glutose) 15 gm Q15M PRN BUCCAL DECREASED GLUCOSE; Start 03/23/19 at 18:30 Epoetin Joseph-epbx (Retacrit (Esrd)) 10,000 unit TuThSa@1700 SC Last administered on 04/05/19at 01:01; Admin Dose 10,000 UNIT; Start 03/24/19 at 17:00 Acetaminophen/ Hydrocodone Bitart ([place] (5/325)) 1 tab Q6H PRN PO .MOD PAIN 4- 6 Last administered on 04/04/19 01:50; Admin Dose 1 TAB; Start 03/24/19 at 22:30 Albumin Human 100 ml @ 100 mls/hr WITH DIALYSIS PRN IV SBP <90 DURING DIALYSIS Last administered on 04/07/19 12:34; Admin Dose 100 MLS/HR; Start 03/27/19 at 12:00 Albuterol/ Ipratropium (Duoneb) 3 ml Q4HWA RESP THERAPY HHN Last administered on 04/07/19 08:27; Admin Dose 3 ML; Start 03/27/19 at 21:00 Magnesium Hydroxide (Milk Of Mag) 30 ml DAILY PRN PO CONSTIPATION Last administered on 03/28/19 20:48; Admin Dose 30 ML; Start 03/28/19 at 15:30 Heparin Sodium (Porcine) (Heparin (5000 Units/1ml)) 5,000 unit BID SC Last administered on 04/07/19 08:30; Admin Dose 5,000 UNIT; Start 03/29/19 at 21:00 Metoclopramide HCl (Reglan) 5 mg Q6 IV Last administered on 04/07/19 11:23; Ad min Dose 5 MG; Start 03/29/19 at 18:00 Diagnostic Test (Pha) (Accu-Chek) 1 ea 02 XX Last administered on 04/02/19 01:49; Admin Dose 1 EA; Start 04/01/19 at 02:00 Insulin Aspart (Novolog Insulin Pen) NOVOLOG *MODERATE* ALGORITHM WITH MEALS BEDTIME SC Last administered on 04/05/19 16:55; Admin Dose 2 UNIT; Start 03/31/19 at 21:00 Metoclopramide HCl (Reglan) 5 mg Q6H PRN IV NAUSEA; Start 04/01/19 at 09:35 Chlorpromazine (Thorazine) 25 mg BID PRN PO hiccups; Start 04/01/19 at 20:00 Ranitidine HCl (Zantac) 300 mg QHS PO Last administered on 04/06/19 20:59; Admin Dose 300 MG; Start 04/02/19 at 21:00 Docusate Sodium/ Ferrous Fumarate (Angela-Sequels) 1 tab DAILY PO Last administered on 04/07/19 08:28; Admin Dose 1 TAB; Start 04/02/19 at 12:30; Stop 05/02/19 at 12:29 Carvedilol (Coreg) 18.75 mg BID PO Last administered on 04/07/19 08:29; Admin Dose 18.75 MG; Start 04/05/19 at 09:00 Alfuzosin HCl (Uroxatral) 10 mg HS PO Last administered on 04/06/19 20:59; Admin Dose 10 MG; Start 04/05/19 at 21:00 Losartan Potassium (Cozaar) 25 mg QHS PO Last administered on 04/06/19 21:00; Admin Dose 25 MG; Start 04/05/19 at 21:00 Zolpidem Tartrate (Ambien) 5 mg HS PRN PO INSOMNIA Last administered on 04/06/19at 22:19; Admin Dose 5 MG; Start 04/05/19 at 21:30 Insulin Glargine (Lantus) 5 units DAILY@2000 SC Last administered on 04/06/19at 20:36; Admin Dose 5 UNITS; Start 04/06/19 at 20:00 Fluconazole (Diflucan) 100 mg DAILY PO Last administered on 04/07/19at 08:28; Admin Dose 100 MG; Start 04/06/19 at 20:30; Stop 04/09/19 at 20:29 Nystatin (Nystatin Susp) 5 ml Q8 PO Last administered on 04/07/19at 06:39; Admin Dose 5 ML; Start 04/06/19 at 22:00; Stop 04/13/19 at 21:59 Calcium Acetate (Phoslo) 667 mg WITH MEALS PO Last administered on 04/07/19at 11:23; Admin Dose 667 MG; Start 04/07/19 at 11:30 Multivit/Ca Carb/ B Cmplx/FA/Prenat (Gilda-Jennifer) 1 tab DAILY PO Last administered on 04/07/19at 09:25; Admin Dose 1 TAB; Start 04/07/19 at 09:00 Methylprednisolone Sodium Succinate (Solu-Medrol) 30 mg Q12 IV ; Start 04/07/19 at 21:00 Insulin Human NPH (Humulin N) 4 unit Q12 SC ; Start 04/07/19 at 21:00; Status KYLEE RODRIGUEZ MD Apr 07, 2019 12:57
--- NOTE | 2019-04-07 13:31 | CONS ---
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 - s/p R TMA with wound VAC placement 04/06/19 - PVD of RLE - h/o percutaneous intervention of RLE in the past - h/o occluded R popliteal artery in doppler in 01/2019 - s/p R SFA to posterior tibial bypass using in situ greater saphenous vein from R thigh and calf on 03/23/2019 - Pt completed meropenem (03/29/2019-04/04/2019), pip/tazo (03/25/19-03/28/19) and IV vancomycin (03/25/19-03/30/19) # other conditions - thrush noted 04/06/19 - DM - Hgb A1c 5.7% - former smoker - constipation recommendations: - continue PO fluconazole x 3 days (04/06/2019-) and nystatin swish and spit x 7 days (04/06/19-) - Pt is on steroid taper by pulm service; will monitor WBC level Management d/w patient, VIC Ramos the critical care time that I took to care for this Pt today was from 1230 to 1300 Consultation Date/Type/Reason Admit Date/Time Mar 23, 2019 at 06:13 Initial Consult Date 03/28/19 Type of Consult ID Requesting Provider: JOSE PARRY MD Date/Time of Note DATE: 04/07/19 TIME: 13:28 24 HR Interval Summary Constitutional: improved Detailed Summary Eyes: no complaints ENT: no complaints Respiratory: other (improved) Cardiovascular: no complaints Gastrointestinal: no complaints Genitourinary: other (getting dialized) Musculoskeletal: no complaints, restricted range of motion (due to surgery and wound VAC) Skin: no complaints Neurologic: no complaints Exam/Review of Systems Exam Vitals Vital Signs Date Temp Pulse Resp B/P (MAP) Pulse Ox O2 O2 Flow FiO2 Time Delivery Rate 04/07/19 2.0 12:59 04/07/19 64 18 100 Nasal 12:54 Cannula 04/07/19 98.7 114/58 12:00 (76) 04/05/19 35 08:01 Intake and Output 04/06/19 04/06/19 04/07/19 1515:00 23:00 07:00 IntakeIntake Total 480 ml 340 ml 280 ml OutputOutput Total 2400 ml 10 ml BalanceBalance -1920 ml 330 ml 280 ml Constitutional: alert, oriented Psych: no complaints, nl mood/affect Head: normocephalic, atraumatic Eyes: nl conjunctiva, nl lids, nl sclera ENMT: nl external ears & nose, mucosa pink and moist, other (+thrush) Neck: supple Respiratory: clear to auscultation, normal air movement Cardiovascular: regular rate and rhythm, nl pulses Gastrointestinal: soft, non-tender; No distended, No tender Genitourinary - Male: other (new HD catheter on R chest wall, old HD cathter in L groin to be removed) Musculoskeletal: other (s/p R TMA, wound VAC is on) Extremities: No edema Skin: nl turgor; No rash or lesions Results Result Diagram: 04/07/1944204/07/19442 Results 24hrs Laboratory Tests Test 04/06/19 13:52 04/06/19 16:19 04/06/19 17:14 04/06/19 20:30 Prothrombin Time 15.6 H Prothrombin Time 1.2 Ratio INR International 1.23 Normalized Ratio Activated 46.2 H Partial Thromboplast Time Bedside Glucose 71 89 92 Test 04/06/19 22:08 04/07/19 04:43 04/07/19 06:38 04/07/19 07:52 Bedside Glucose 143 94 84 White Blood Count 13.9 #H Red Blood Count 3.39 L Hemoglobin 10.2 L Hematocrit 30.9 L Mean Corpuscular 91.2 Volume Mean Corpuscular 30.1 Hemoglobin Mean Corpuscular 33.0 Hemoglobin Concent Red Cell 15.9 H Distribution Width Platelet Count 256 Mean Platelet Volume 10.8 H Immature 0.700 H Granulocytes % Neutrophils % 91.8 H Lymphocytes % 1.5 L Monocytes % 5.8 Eosinophils % 0.1 Basophils % 0.1 Nucleated Red Blood 0.4 H Cells % Immature 0.100 H Granulocytes # Neutrophils # 12.8 H Lymphocytes # 0.2 L Monocytes # 0.8 Eosinophils # 0.0 Basophils # 0.0 Nucleated Red Blood 0.1 H Cells # Sodium Level 131 L Potassium Level 4.3 Chloride Level 97 Carbon Dioxide Level 24 Anion Gap 10 Blood Urea Nitrogen 58 H Creatinine 4.23 #H Est Glomerular 14 L Filtrat Rate mL/min Glucose Level 92 Calcium Level 7.7 L Phosphorus Level 7.3 H Test 04/07/19 11:21 Bedside Glucose 127 Medications Medication Current Medications Aspirin (Aspirin) 325 mg DAILY PO Last administered on 04/07/19at 08:28; Admin Dose 325 MG; Start 03/24/19 at 09:00 Atorvastatin Calcium (Lipitor) 40 mg QHS PO Last administered on 04/06/19at 20:59; Admin Dose 40 MG; Start 03/23/19 at 21:00 Linagliptin (Tradjenta) 5 mg DAILY PO Last administered on 04/07/19at 08:28; Admin Dose 5 MG; Start 03/24/19 at 09:00 Ondansetron HCl (Zofran Inj) 4 mg Q4H PRN IV NAUSEA AND/OR VOMITING Last administered on 04/05/19at 06:29; Admin Dose 4 MG; Start 03/23/19 at 18:00 Hydromorphone HCl (Dilaudid) 2 mg Q4H PRN IV SEVERE PAIN LEVEL 7-10 Last administered on 04/05/19at 01:09; Admin Dose 2 MG; Start 03/23/19 at 18:00 Miscellaneous Information 1 ea NOTE XX ; Start 03/23/19 at 18:30 Glucose (Glutose) 15 gm Q15M PRN PO DECREASED GLUCOSE; Start 03/23/19 at 18:30 Glucose (Glutose) 22.5 gm Q15M PRN PO DECREASED GLUCOSE; Start 03/23/19 at 18:30 Dextrose (D50w Syringe) 25 ml Q15M PRN IV DECREASED GLUCOSE; Start 03/23/19 at 18:30 Dextrose (D50w Syringe) 50 ml Q15M PRN IV DECREASED GLUCOSE; Start 03/23/19 at 18:30 Glucagon (Glucagen) 1 mg Q15M PRN IM DECREASED GLUCOSE; Start 03/23/19 at 18:30 Glucose (Glutose) 15 gm Q15M PRN BUCCAL DECREASED GLUCOSE; Start 03/23/19 at 18:30 Epoetin Joseph-epbx (Retacrit (Esrd)) 10,000 unit TuThSa@1700 SC Last administered on 04/05/19 01:01; Admin Dose 10,000 UNIT; Start 03/24/19 at 17:00 Acetaminophen/ Hydrocodone Bitart ([place] (5/325)) 1 tab Q6H PRN PO .MOD PAIN 4- 6 Last administered on 04/04/19 01:50; Admin Dose 1 TAB; Start 03/24/19 at 22:30 Albumin Human 100 ml @ 100 mls/hr WITH DIALYSIS PRN IV SBP <90 DURING DIALYSIS Last administered on 04/07/19 12:34; Admin Dose 100 MLS/HR; Start 03/27/19 at 12:00 Albuterol/ Ipratropium (Duoneb) 3 ml Q4HWA RESP THERAPY HHN Last administered on 04/07/19 12:53; Admin Dose 3 ML; Start 03/27/19 at 21:00 Magnesium Hydroxide (Milk Of Mag) 30 ml DAILY PRN PO CONSTIPATION Last administered on 03/28/19 20:48; Admin Dose 30 ML; Start 03/28/19 at 15:30 Heparin Sodium (Porcine) (Heparin (5000 Units/1ml)) 5,000 unit BID SC Last administered on 04/07/19 08:30; Admin Dose 5,000 UNIT; Start 03/29/19 at 21:00 Metoclopramide HCl (Reglan) 5 mg Q6 IV Last administered on 04/07/19 11:23; Admin Dose 5 MG; Start 03/29/19 at 18:00 Diagnostic Test (Pha) (Accu-Chek) 1 ea 02 XX Last administered on 04/02/19 01:49; Admin Dose 1 EA; Start 04/01/19 at 02:00 Insulin Aspart (Novolog Insulin Pen) NOVOLOG *MODERATE* ALGORITHM WITH MEALS BEDTIME SC Last administered on 04/05/19 16:55; Admin Dose 2 UNIT; Start 03/31/19 at 21:00 Metoclopramide HCl (Reglan) 5 mg Q6H PRN IV NAUSEA; Start 04/01/19 at 09:35 Chlorpromazine (Thorazine) 25 mg BID PRN PO hiccups; Start 04/01/19 at 20:00 Ranitidine HCl (Zantac) 300 mg QHS PO Last administered on 04/06/19 20:59; Admin Dose 300 MG; Start 04/02/19 at 21:00 Docusate Sodium/ Ferrous Fumarate (Angela-Sequels) 1 tab DAILY PO Last administered on 04/07/19 08:28; Admin Dose 1 TAB; Start 04/02/19 at 12:30; Stop 05/02/19 at 12:29 Carvedilol (Coreg) 18.75 mg BID PO Last administered on 04/07/19 08:29; Admin Dose 18.75 MG; Start 04/05/19 at 09:00 Alfuzosin HCl (Uroxatral) 10 mg HS PO Last administered on 04/06/19 20:59; Admin Dose 10 MG; Start 04/05/19 at 21:00 Losartan Potassium (Cozaar) 25 mg QHS PO Last administered on 04/06/19 21:00; Admin Dose 25 MG; Start 04/05/19 at 21:00 Zolpidem Tartrate (Ambien) 5 mg HS PRN PO INSOMNIA Last administered on 04/06/19 22:19; Admin Dose 5 MG; Start 04/05/19 at 21:30 Insulin Glargine (Lantus) 5 units DAILY@2000 SC Last administered on 04/06/19 20:36; Admin Dose 5 UNITS; Start 04/06/19 at 20:00 Fluconazole (Diflucan) 100 mg DAILY PO Last administered on 04/07/19 08:28; Admin Dose 100 MG; Start 04/06/19 at 20:30; Stop 04/09/19 at 20:29 Nystatin (Nystatin Susp) 5 ml Q8 PO Last administered on 04/07/19 06:39; Admin Dose 5 ML; Start 04/06/19 at 22:00; Stop 04/13/19 at 21:59 Calcium Acetate (Phoslo) 667 mg WITH MEALS PO Last administered on 04/07/19 11:23; Admin Dose 667 MG; Start 04/07/19 at 11:30 Multivit/Ca Carb/ B Cmplx/FA/Prenat (Gilda-Jennifer) 1 tab DAILY PO Last administered on 04/07/19at 09:25; Admin Dose 1 TAB; Start 04/07/19 at 09:00 Methylprednisolone Sodium Succinate (Solu-Medrol) 30 mg Q12 IV ; Start 04/07/19 at 21:00 Insulin Human NPH (Humulin N) 4 unit Q12 SC ; Start 04/07/19 at 21:00 LUDMILA ANTOINE M.D. Apr 07, 2019 13:31
[2019-04-07] MEDS ORDERED: HEPARIN 1000 UNITS/ML 10 ML INJ ONE (14:35)
[2019-04-07] MEDS: HEPARIN 1000 UNITS/ML 10 ML INJ CATHETER SCH (15:48)
[2019-04-07] MEDS: EPOETIN ALFA-EPBX (ESRD) 10,000 UNIT/ML VIAL SC SCH (17:12)
[2019-04-07] MEDS ORDERED: MAGNESIUM SULFATE 1 GM/D5W 100 ML ONE (17:52)
[2019-04-07] MEDS ORDERED: MAGNESIUM SULFATE 1 GM/D5W 100 ML IVPB ONE (18:30)
--- NOTE | 2019-04-07 18:56 | CONS ---
Assessment/Plan Assessment/Plan Hospital Course (Demo Recall) Acute respiratory failure Acute kidney injury on hemodialysis Peripheral arterial disease status post bypass Hypertension Preserved left ventricular ejection fraction echocardiogram January 2019 Patient with brief wide-complex tachycardia which was irregular for a few seconds on telemetry. Asymptomatic. Differential includes atrial fibrillation with aberrancy versus nonsustained ventricular tachycardia. I will order magnesium supplementation Continue beta-jillian and titrate if needed. Continue on telemetry monitoring Fluid management via hemodialysis as per nephrology Continue statin and aspirin therapy if able to take p.o., if no contraindication, change asa to 81mg daily Consultation Date/Type/Reason Admit Date/Time Mar 23, 2019 at 06:13 Initial Consult Date 03/28/19 Type of Consult Cardiology Requesting Provider: MICHELE PARRY MD Date/Time of Note DATE: 04/07/19 TIME: 18:54 24 HR Interval Summary Free Text/Dictation Feeling better, no shortness of breath, palpitations Exam/Review of Systems Vital Signs Vitals Vital Signs Date Temp Pulse Resp B/P (MAP) Pulse Ox O2 O2 Flow FiO2 Time Delivery Rate 04/07/19 86 14 113/56 99 Nasal 18:00 (75) Cannula 04/07/19 2.0 16:47 04/07/19 97.8 16:00 04/05/19 35 08:01 Intake and Output 04/06/19 04/06/19 04/07/19 1515:00 23:00 07:00 IntakeIntake Total 480 ml 340 ml 280 ml OutputOutput Total 2400 ml 10 ml BalanceBalance -1920 ml 330 ml 280 ml Exam Constitutional: alert, oriented (No apparent distress) Head: normocephalic Respiratory: other (Coarse breath sounds bilaterally, no wheezing) Cardiovascular: regular rate and rhythm (S1-S2 heard) Gastrointestinal: soft, non-tender, bowel sounds Extremities: edema Labs Result Diagram: 04/07/19 0443 04/07/19 1702 Results 24hrs Laboratory Tests Test 04/06/19 20:30 04/06/19 22:08 04/07/19 04:43 04/07/19 06:38 Bedside Glucose 92 143 94 White Blood Count 13.9 #H Red Blood Count 3.39 L Hemoglobin 10.2 L Hematocrit 30.9 L Mean Corpuscular 91.2 Volume Mean Corpuscular 30.1 Hemoglobin Mean Corpuscular 33.0 Hemoglobin Concent Red Cell 15.9 H Distribution Width Platelet Count 256 Mean Platelet Volume 10.8 H Immature 0.700 H Granulocytes % Neutrophils % 91.8 H Lymphocytes % 1.5 L Monocytes % 5.8 Eosinophils % 0.1 Basophils % 0.1 Nucleated Red Blood 0.4 H Cells % Immature 0.100 H Granulocytes # Neutrophils # 12.8 H Lymphocytes # 0.2 L Monocytes # 0.8 Eosinophils # 0.0 Basophils # 0.0 Nucleated Red Blood 0.1 H Cells # Sodium Level 131 L Potassium Level 4.3 Chloride Level 97 Carbon Dioxide Level 24 Anion Gap 10 Blood Urea Nitrogen 58 H Creatinine 4.23 #H Est Glomerular 14 L Filtrat Rate mL/min Glucose Level 92 Calcium Level 7.7 L Phosphorus Level 7.3 H Test 04/07/19 07:52 04/07/19 11:21 04/07/19 17:02 04/07/19 17:07 Bedside Glucose 84 127 193 Potassium Level 3.8 Magnesium Level 2.0 Medications Medications Current Medications Aspirin (Aspirin) 325 mg DAILY PO Last administered on 04/07/19 08:28; Admin Dose 325 MG; Start 03/24/19 at 09:00 Atorvastatin Calcium (Lipitor) 40 mg QHS PO Last administered on 04/06/19 20:59; Admin Dose 40 MG; Start 03/23/19 at 21:00 Linagliptin (Tradjenta) 5 mg DAILY PO Last administered on 04/07/19 08:28; Admin Dose 5 MG; Start 03/24/19 at 09:00 Ondansetron HCl (Zofran Inj) 4 mg Q4H PRN IV NAUSEA AND/OR VOMITING Last administered on 04/05/19at 06:29; Admin Dose 4 MG; Start 03/23/19 at 18:00 Hydromorphone HCl (Dilaudid) 2 mg Q4H PRN IV SEVERE PAIN LEVEL 7-10 Last administered on 04/05/19at 01:09; Admin Dose 2 MG; Start 03/23/19 at 18:00 Miscellaneous Information 1 ea NOTE XX ; Start 03/23/19 at 18:30 Glucose (Glutose) 15 gm Q15M PRN PO DECREASED GLUCOSE; Start 03/23/19 at 18:30 Glucose (Glutose) 22.5 gm Q15M PRN PO DECREASED GLUCOSE; Start 03/23/19 at 18:30 Dextrose (D50w Syringe) 25 ml Q15M PRN IV DECREASED GLUCOSE; Start 03/23/19 at 18:30 Dextrose (D50w Syringe) 50 ml Q15M PRN IV DECREASED GLUCOSE; Start 03/23/19 at 18:30 Glucagon (Glucagen) 1 mg Q15M PRN IM DECREASED GLUCOSE; Start 03/23/19 at 18:30 Glucose (Glutose) 15 gm Q15M PRN BUCCAL DECREASED GLUCOSE; Start 03/23/19 at 18:30 Epoetin Joseph-epbx (Retacrit (Esrd)) 10,000 unit TuThSa@1700 SC Last administered on 04/07/19 17:12; Admin Dose 10,000 UNIT; Start 03/24/19 at 17:00 Acetaminophen/ Hydrocodone Bitart ([place] (5/325)) 1 tab Q6H PRN PO .MOD PAIN 4- 6 Last administered on 04/04/19 01:50; Admin Dose 1 TAB; Start 03/24/19 at 22:30 Albumin Human 100 ml @ 100 mls/hr WITH DIALYSIS PRN IV SBP <90 DURING DIALYSIS Last administered on 04/07/19 12:34; Admin Dose 100 MLS/HR; Start 03/27/19 at 12:00 Albuterol/ Ipratropium (Duoneb) 3 ml Q4HWA RESP THERAPY HHN Last administered on 04/07/19 16:36; Admin Dose 3 ML; Start 03/27/19 at 21:00 Magnesium Hydroxide (Milk Of Mag) 30 ml DAILY PRN PO CONSTIPATION Last administered on 03/28/19 20:48; Admin Dose 30 ML; Start 03/28/19 at 15:30 Heparin Sodium (Porcine) (Heparin (5000 Units/1ml)) 5,000 unit BID SC Last administered on 04/07/19 08:30; Admin Dose 5,000 UNIT; Start 03/29/19 at 21:00 Metoclopramide HCl (Reglan) 5 mg Q6 IV Last administered on 04/07/19 17:08; Admin Dose 5 MG; Start 03/29/19 at 18:00 Diagnostic Test (Pha) (Accu-Chek) 1 ea 02 XX Last administered on 7/18/19at 01:49; Admin Dose 1 EA; Start 04/01/19 at 02:00 Insulin Aspart (Novolog Insulin Pen) NOVOLOG *MODERATE* ALGORITHM WITH MEALS BEDTIME SC Last administered on 04/07/19 17:16; Admin Dose 4 UNIT; Start 03/31/19 at 21:00 Metoclopramide HCl (Reglan) 5 mg Q6H PRN IV NAUSEA; Start 04/01/19 at 09:35 Chlorpromazine (Thorazine) 25 mg BID PRN PO hiccups; Start 04/01/19 at 20:00 Ranitidine HCl (Zantac) 300 mg QHS PO Last administered on 04/06/19 20:59; Admin Dose 300 MG; Start 04/02/19 at 21:00 Docusate Sodium/ Ferrous Fumarate (Angela-Sequels) 1 tab DAILY PO Last administered on 04/07/19 08:28; Admin Dose 1 TAB; Start 04/02/19 at 12:30; Stop 05/02/19 at 12:29 Carvedilol (Coreg) 18.75 mg BID PO Last administered on 04/07/19 08:29; Admin Dose 18.75 MG; Start 04/05/19 at 09:00 Alfuzosin HCl (Uroxatral) 10 mg HS PO Last administered on 04/06/19 20:59; Admin Dose 10 MG; Start 04/05/19 at 21:00 Losartan Potassium (Cozaar) 25 mg QHS PO Last administered on 04/06/19 21:00; Admin Dose 25 MG; Start 04/05/19 at 21:00 Zolpidem Tartrate (Ambien) 5 mg HS PRN PO INSOMNIA Last administered on 04/06/19 22:19; Admin Dose 5 MG; Start 04/05/19 at 21:30 Insulin Glargine (Lantus) 5 units DAILY@2000 SC Last administered on 04/06/19 20:36; Admin Dose 5 UNITS; Start 04/06/19 at 20:00 Fluconazole (Diflucan) 100 mg DAILY PO Last administered on 04/07/19 08:28; Admin Dose 100 MG; Start 04/06/19 at 20:30; Stop 04/09/19 at 20:29 Nystatin (Nystatin Susp) 5 ml Q8 PO Last administered on 04/07/19at 14:46; Admin Dose 5 ML; Start 04/06/19 at 22:00; Stop 04/13/19 at 21:59 Calcium Acetate (Phoslo) 667 mg WITH MEALS PO Last administered on 04/07/19 17:08; Admin Dose 667 MG; Start 04/07/19 at 11:30 Multivit/Ca Carb/ B Cmplx/FA/Prenat (Gilda-Jennifer) 1 tab DAILY PO Last administered on 04/07/19 09:25; Admin Dose 1 TAB; Start 04/07/19 at 09:00 Methylprednisolone Sodium Succinate (Solu-Medrol) 30 mg Q12 IV ; Start 04/07/19 at 21:00 Insulin Human NPH (Humulin N) 4 unit Q12 SC ; Start 04/07/19 at 21:00 Heparin Sodium (Porcine) (Heparin (1000 Units/ml)) 4,500 unit AFTER DIALYSIS CATHETER Last administered on 04/07/19at 15:48; Admin Dose 4,500 UNIT; Start 04/07/19 at 16:00 Magnesium Sulfate/ Dextrose 100 ml @ 100 mls/hr ONCE ONCE IVPB Last administered on 04/07/19at 18:11; Admin Dose 100 MLS/HR; Start 04/07/19 at 18:30; Stop 04/07/19 at 19:29 Michele Richard DO Apr 07, 2019 18:56
[2019-04-07] MEDS: INSULIN GLARGINE [LANTus] (100 UNITS/ML) SYG SC SCH (20:13)
[2019-04-07] MEDS: RANITIDINE 150 MG TAB PO SCH (21:06)
[2019-04-07] MEDS: LOSARTAN 25 MG TAB PO SCH (21:06)
[2019-04-07] MEDS: ALFUZOSIN (SR) 10 MG TAB PO SCH (21:06)
[2019-04-07] MEDS: ATORVASTATIN 40 MG TAB PO SCH (21:06)
[2019-04-07] MEDS: ZOLPIDEM 5 MG TAB PO PRN (23:31)
[2019-04-08] MEDS: ACCU-CHEK XX SCH (02:13)
[2019-04-08 03:27] VITALS: BP 107/52; PULSE 73; RESP 18
[2019-04-08] MEDS: METOCLOPRAMIDE 10 MG INJ IV SCH ×3 (05:26→17:35)
[2019-04-08] MEDS: NYSTATIN SUSP 5 ML CUP PO SCH ×3 (05:33→21:36)
[2019-04-08 07:35] VITALS: BP 130/60; PULSE 70; RESP 17
[2019-04-08] MEDS: ALBUTEROL/IPRATROPIUM (NEB) 3 ML AMP HHN SCH ×4 (07:52→21:18)
[2019-04-08] MEDS: INSULIN ASPART [NOVOLOG] 3 ML PEN SC SCH ×4 (07:55→21:00)
[2019-04-08] MEDS: CALCIUM ACETATE 667 MG CAP PO SCH ×3 (07:55→17:34)
--- NOTE | 2019-04-08 08:40 | CONS ---
Assessment/Plan Assessment/Plan Assessment/Plan (Daily) 1. CKD, to be dialyzed tomm 2. Anemia is stable 3. DM, excellent sugar control 4. 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 Case management is working on setting up OP HD 6. Pneumonia continues to improve Consultation Date/Type/Reason Admit Date/Time Mar 23, 2019 at 06:13 Initial Consult Date 03/21/19 Requesting Provider: JOSE PARRY MD Date/Time of Note DATE: 04/08/19 TIME: 08:38 Detailed Summary Respiratory: No cough, No shortness of breath Cardiovascular: No chest pain Gastrointestinal: no complaints Genitourinary: no complaints Exam/Review of Systems Exam Vitals Vital Signs Date Temp Pulse Resp B/P (MAP) Pulse Ox O2 O2 Flow FiO2 Time Delivery Rate 04/08/19 85 18 100 Nasal 2.0 07:53 Cannula 04/08/19 98.2 130/60 07:35 (83) 04/05/19 35 08:01 Intake and Output 04/07/19 04/07/19 04/08/19 1515:00 23:00 07:00 IntakeIntake Total 100 ml 120 ml 220 ml OutputOutput Total 2500 ml BalanceBalance 100 ml -2380 ml 220 ml Neck: No jvd Respiratory: clear to auscultation, diminished breath sounds Cardiovascular: regular rate and rhythm Gastrointestinal: soft Extremities: No edema Results Result Diagram: 04/07/19 0443 04/07/19 1702 Results 24hrs Laboratory Tests Test 04/07/19 11:21 04/07/19 17:02 04/07/19 17:07 04/07/19 20:10 Bedside Glucose 127 193 235 H Potassium Level 3.8 Magnesium Level 2.0 Test 04/07/19 20:59 04/08/19 01:29 04/08/19 07:54 Bedside Glucose 295 H 109 83 Medications Medication Current Medications Aspirin (Aspirin) 325 mg DAILY PO Last administered on 04/07/19at 08:28; Admin Dose 325 MG; Start 03/24/19 at 09:00 Atorvastatin Calcium (Lipitor) 40 mg QHS PO Last administered on 04/07/19at 21: 06; Admin Dose 40 MG; Start 03/23/19 at 21:00 Linagliptin (Tradjenta) 5 mg DAILY PO Last administered on 7/23/19at 08:28; Admin Dose 5 MG; Start 03/24/19 at 09:00 Ondansetron HCl (Zofran Inj) 4 mg Q4H PRN IV NAUSEA AND/OR VOMITING Last administered on 04/05/19 06:29; Admin Dose 4 MG; Start 03/23/19 at 18:00 Hydromorphone HCl (Dilaudid) 2 mg Q4H PRN IV SEVERE PAIN LEVEL 7-10 Last administered on 04/05/19 01:09; Admin Dose 2 MG; Start 03/23/19 at 18:00 Miscellaneous Information 1 ea NOTE XX ; Start 03/23/19 at 18:30 Glucose (Glutose) 15 gm Q15M PRN PO DECREASED GLUCOSE; Start 03/23/19 at 18:30 Glucose (Glutose) 22.5 gm Q15M PRN PO DECREASED GLUCOSE; Start 03/23/19 at 18:30 Dextrose (D50w Syringe) 25 ml Q15M PRN IV DECREASED GLUCOSE; Start 03/23/19 at 18:30 Dextrose (D50w Syringe) 50 ml Q15M PRN IV DECREASED GLUCOSE; Start 03/23/19 at 18:30 Glucagon (Glucagen) 1 mg Q15M PRN IM DECREASED GLUCOSE; Start 03/23/19 at 18:30 Glucose (Glutose) 15 gm Q15M PRN BUCCAL DECREASED GLUCOSE; Start 03/23/19 at 18:30 Epoetin Joseph-epbx (Retacrit (Esrd)) 10,000 unit TuThSa@1700 SC Last administered on 04/07/19 17:12; Admin Dose 10,000 UNIT; Start 03/24/19 at 17:00 Acetaminophen/ Hydrocodone Bitart ([place] (5/325)) 1 tab Q6H PRN PO .MOD PAIN 4- 6 Last administered on 04/04/19 01:50; Admin Dose 1 TAB; Start 03/24/19 at 22:30 Albumin Human 100 ml @ 100 mls/hr WITH DIALYSIS PRN IV SBP <90 DURING DIALYSIS Last administered on 04/07/19 12:34; Admin Dose 100 MLS/HR; Start 03/27/19 at 12:00 Albuterol/ Ipratropium (Duoneb) 3 ml Q4HWA RESP THERAPY HHN Last administered on 04/08/19 07:52; Admin Dose 3 ML; Start 03/27/19 at 21:00 Magnesium Hydroxide (Milk Of Mag) 30 ml DAILY PRN PO CONSTIPATION Last administered on 03/28/19 20:48; Admin Dose 30 ML; Start 03/28/19 at 15:30 Heparin Sodium (Porcine) (Heparin (5000 Units/1ml)) 5,000 unit BID SC Last administered on 04/07/19 21:01; Admin Dose 5,000 UNIT; Start 03/29/19 at 21:00 Metoclopramide HCl (Reglan) 5 mg Q6 IV Last administered on 04/08/19 05:26; Admin Dose 5 MG; Start 03/29/19 at 18:00 Diagnostic Test (Pha) (Accu-Chek) 1 ea 02 XX Last administered on 04/08/19 02:13; Admin Dose 1 EA; Start 04/01/19 at 02:00 Insulin Aspart (Novolog Insulin Pen) NOVOLOG *MODERATE* ALGORITHM WITH MEALS BEDTIME SC Last administered on 04/07/19 21:01; Admin Dose 3 UNIT; Start 03/31/19 at 21:00 Metoclopramide HCl (Reglan) 5 mg Q6H PRN IV NAUSEA; Start 04/01/19 at 09:35 Chlorpromazine (Thorazine) 25 mg BID PRN PO hiccups; Start 04/01/19 at 20:00 Ranitidine HCl (Zantac) 300 mg QHS PO Last administered on 04/07/19 21:06; Admin Dose 300 MG; Start 04/02/19 at 21:00 Docusate Sodium/ Ferrous Fumarate (Angela-Sequels) 1 tab DAILY PO Last admin istered on 04/07/19 08:28; Admin Dose 1 TAB; Start 04/02/19 at 12:30; Stop 05/02/19 at 12:29 Carvedilol (Coreg) 18.75 mg BID PO Last administered on 04/07/19 21:07; Admin Dose 18.75 MG; Start 04/05/19 at 09:00 Alfuzosin HCl (Uroxatral) 10 mg HS PO Last administered on 04/07/19 21:06; Admin Dose 10 MG; Start 04/05/19 at 21:00 Losartan Potassium (Cozaar) 25 mg QHS PO Last administered on 04/07/19 21:06; Admin Dose 25 MG; Start 04/05/19 at 21:00 Zolpidem Tartrate (Ambien) 5 mg HS PRN PO INSOMNIA Last administered on 04/07/19 23:31; Admin Dose 5 MG; Start 04/05/19 at 21:30 Insulin Glargine (Lantus) 5 units DAILY@2000 SC Last administered on 04/07/19 20:13; Admin Dose 5 UNITS; Start 04/06/19 at 20:00 Fluconazole (Diflucan) 100 mg DAILY PO Last administered on 04/07/19 08:28; Admin Dose 100 MG; Start 04/06/19 at 20:30; Stop 04/09/19 at 20:29 Nystatin (Nystatin Susp) 5 ml Q8 PO Last administered on 04/08/19 05:33; Admin Dose 5 ML; Start 04/06/19 at 22:00; Stop 04/13/19 at 21:59 Calcium Acetate (Phoslo) 667 mg WITH MEALS PO Last administered on 04/08/19 07:55; Admin Dose 667 MG; Start 04/07/19 at 11:30 Multivit/Ca Carb/ B Cmplx/FA/Prenat (Gilda-Jennifer) 1 tab DAILY PO Last a dministered on 04/07/19 09:25; Admin Dose 1 TAB; Start 04/07/19 at 09:00 Methylprednisolone Sodium Succinate (Solu-Medrol) 30 mg Q12 IV Last administered on 04/07/19 21:03; Admin Dose 30 MG; Start 04/07/19 at 21:00 Insulin Human NPH (Humulin N) 4 unit Q12 SC Last administered on 04/07/19 21:03; Admin Dose 4 UNIT; Start 04/07/19 at 21:00 Heparin Sodium (Porcine) (Heparin (1000 Units/ml)) 4,500 unit AFTER DIALYSIS CATHETER Last administered on 04/07/19 15:48; Admin Dose 4,500 UNIT; Start 04/07/19 at 16:00 DOT ASHLEY MD Apr 08, 2019 08:40
[2019-04-08] MEDS: FLUCONAZOLE 100 MG TAB PO SCH (09:15)
[2019-04-08] MEDS: FERROUS FUMARATE (SR) TAB PO SCH (09:15)
[2019-04-08] MEDS: LINAGLIPTIN 5 MG TABLET PO SCH (09:15)
[2019-04-08] MEDS: MULTIVIT/CA CARB/B CMPLX/FA TAB PO SCH (09:15)
[2019-04-08] MEDS: METHYLPREDNISOLONE 40 MG INJ IV SCH ×2 (09:15→20:59)
[2019-04-08] MEDS: ASPIRIN 325 MG TAB PO SCH (09:15)
[2019-04-08] MEDS: HEPARIN 5,000 UNIT/1 ML VIAL SC SCH ×2 (09:46→21:04)
[2019-04-08] MEDS: NPH, HUMAN INSULIN ISOPHANE 3ML VIAL SC SCH ×2 (09:59→21:09)
--- NOTE | 2019-04-08 11:45 | PN ---
Date/Time of Note Date/Time of Note DATE: 04/08/19 TIME: 11:43 Assessment/Plan Lines/Catheters IV Catheter Type (from Nrsg): Peripheral IV River in Place (from Nrsg): No Assessment/Plan Assessment/Plan Doing well s/p R fem-PT bypass, remove jessenia and steristrip the incision TMA closure per Dr. Afua Gill working well Will plan for L arm AVF in the future Subjective 24 Hr Interval Summary Breathing well, no pain. Exam/Review of Systems Vital Signs Vitals Vital Signs Date Temp Pulse Resp B/P (MAP) Pulse Ox O2 O2 Flow FiO2 Time Delivery Rate 04/08/19 Nasal 2.0 08:15 Cannula 04/08/19 85 18 100 07:53 04/08/19 98.2 130/60 07:35 (83) 04/05/19 35 08:01 Intake and Output 04/07/19 04/07/19 04/08/19 1515:00 23:00 07:00 IntakeIntake Total 100 ml 120 ml 220 ml OutputOutput Total 2500 ml BalanceBalance 100 ml -2380 ml 220 ml Exam Free Text/Dictation R IJ PC site looks good R open TMA with VAC in place, good seal R leg incisions healing well, 2+ graft pulse, no edema Results Result Diagram: 04/07/19 0443 04/07/19 1702 WALTER LOWERY MD Apr 08, 2019 11:45
[2019-04-08 11:48] VITALS: BP 147/64; PULSE 67; RESP 17
--- NOTE | 2019-04-08 12:21 | CONS ---
Consult Date/Type/Reason Admit Date/Time Mar 23, 2019 at 06:13 Initial Consult Date 03/28/19 Type of Consult Pulmonary Requesting Provider: JOSE PARRY MD Date/Time of Note DATE: 04/08/19 TIME: 12:20 Subjective No significant changes patient remained stable Objective Vital Signs Date Temp Pulse Resp B/P (MAP) Pulse Ox O2 O2 Flow FiO2 Time Delivery Rate 04/08/19 80 18 98 Nasal 2.0 12:05 Cannula 04/08/19 97.6 147/64 11:48 (91) 04/05/19 35 08:01 Intake and Output 04/07/19 04/07/19 04/08/19 1515:00 23:00 07:00 IntakeIntake Total 100 ml 120 ml 220 ml OutputOutput Total 2500 ml BalanceBalance 100 ml -2380 ml 220 ml Exam GENERAL: Elderly gentleman appears comfortable at rest no acute distress. VITAL SIGNS: per chart NECK: Supple. No JVD or lymphadenopathy. CARDIAC EXAM: S1, S2. No added sounds or murmurs. CHEST: Diminished air entry bilaterally with rales ABDOMEN: Soft, nontender. No guarding or rebound. EXTREMITIES: No cyanosis, clubbing or edema. NEUROLOGIC: Generalized weakness. Vent Setting Fraction of Inspired Oxygen pe: 35 Results/Medications Result Diagram: 04/07/19 0443 04/07/19 1702 Results 24 hrs Laboratory Tests Test 04/07/19 17:02 04/07/19 17:07 04/07/19 20:10 04/07/19 20:59 Potassium Level 3.8 Magnesium Level 2.0 Bedside Glucose 193 235 H 295 H Test 04/08/19 01:29 04/08/19 07:54 04/08/19 09:51 04/08/19 11:49 Bedside Glucose 109 83 97 87 Medications Current Medications Aspirin (Aspirin) 325 mg DAILY PO Last administered on 04/08/19at 09:15; Admin Dose 325 MG; Start 03/24/19 at 09:00 Atorvastatin Calcium (Lipitor) 40 mg QHS PO Last administered on 04/07/19at 21:06; Admin Dose 40 MG; Start 03/23/19 at 21:00 Linagliptin (Tradjenta) 5 mg DAILY PO Last administered on 04/08/19at 09:15; Admin Dose 5 MG; Start 03/24/19 at 09:00 Ondansetron HCl (Zofran Inj) 4 mg Q4H PRN IV NAUSEA AND/OR VOMITING Last administered on 04/05/19at 06:29; Admin Dose 4 MG; Start 03/23/19 at 18:00 Hydromorphone HCl (Dilaudid) 2 mg Q4H PRN IV SEVERE PAIN LEVEL 7-10 Last administered on 04/05/19 01:09; Admin Dose 2 MG; Start 03/23/19 at 18:00 Miscellaneous Information 1 ea NOTE XX ; Start 03/23/19 at 18:30 Glucose (Glutose) 15 gm Q15M PRN PO DECREASED GLUCOSE; Start 03/23/19 at 18:30 Glucose (Glutose) 22.5 gm Q15M PRN PO DECREASED GLUCOSE; Start 03/23/19 at 18:30 Dextrose (D50w Syringe) 25 ml Q15M PRN IV DECREASED GLUCOSE; Start 03/23/19 at 18:30 Dextrose (D50w Syringe) 50 ml Q15M PRN IV DECREASED GLUCOSE; Start 03/23/19 at 18:30 Glucagon (Glucagen) 1 mg Q15M PRN IM DECREASED GLUCOSE; Start 03/23/19 at 18:30 Glucose (Glutose) 15 gm Q15M PRN BUCCAL DECREASED GLUCOSE; Start 03/23/19 at 18:30 Epoetin Joseph-epbx (Retacrit (Esrd)) 10,000 unit TuThSa@1700 SC Last administered on 04/07/19at 17:12; Admin Dose 10,000 UNIT; Start 03/24/19 at 17:00 Acetaminophen/ Hydrocodone Bitart ([place] (5/325)) 1 tab Q6H PRN PO .MOD PAIN 4- 6 Last administered on 04/04/19 01:50; Admin Dose 1 TAB; Start 03/24/19 at 22:30 Albumin Human 100 ml @ 100 mls/hr WITH DIALYSIS PRN IV SBP <90 DURING DIALYSIS Last administered on 04/07/19at 12:34; Admin Dose 100 MLS/HR; Start 03/27/19 at 12:00 Albuterol/ Ipratropium (Duoneb) 3 ml Q4HWA RESP THERAPY HHN Last administered on 04/08/19 12:05; Admin Dose 3 ML; Start 03/27/19 at 21:00 Magnesium Hydroxide (Milk Of Mag) 30 ml DAILY PRN PO CONSTIPATION Last administered on 03/28/19 20:48; Admin Dose 30 ML; Start 03/28/19 at 15:30 Heparin Sodium (Porcine) (Heparin (5000 Units/1ml)) 5,000 unit BID SC Last administered on 04/08/19 09:46; Admin Dose 5,000 UNIT; Start 03/29/19 at 21:00 Metoclopramide HCl (Reglan) 5 mg Q6 IV Last administered on 04/08/19 12:01; Admin Dose 5 MG; Start 03/29/19 at 18:00 Diagnostic Test (Pha) (Accu-Chek) 1 ea 02 XX Last administered on 04/08/19 02:13; Admin Dose 1 EA; Start 04/01/19 at 02:00 Insulin Aspart (Novolog Insulin Pen) NOVOLOG *MODERATE* ALGORITHM WITH MEALS BEDTIME SC Last administered on 04/07/19 21:01; Admin Dose 3 UNIT; Start 03/31/19 at 21:00 Metoclopramide HCl (Reglan) 5 mg Q6H PRN IV NAUSEA; Start 04/01/19 at 09:35 Chlorpromazine (Thorazine) 25 mg BID PRN PO hiccups; Start 04/01/19 at 20:00 Docusate Sodium/ Ferrous Fumarate (Angela-Sequels) 1 tab DAILY PO Last administered on 04/08/19 09:15; Admin Dose 1 TAB; Start 04/02/19 at 12:30; Stop 05/02/19 at 12:29 Carvedilol (Coreg) 18.75 mg BID PO Last administered on 04/07/19 21:07; Admin Dose 18.75 MG; Start 04/05/19 at 09:00 Alfuzosin HCl (Uroxatral) 10 mg HS PO Last administered on 04/07/19 21:06; Adm in Dose 10 MG; Start 04/05/19 at 21:00 Losartan Potassium (Cozaar) 25 mg QHS PO Last administered on 04/07/19 21:06; Admin Dose 25 MG; Start 04/05/19 at 21:00 Zolpidem Tartrate (Ambien) 5 mg HS PRN PO INSOMNIA Last administered on 04/07/19 23:31; Admin Dose 5 MG; Start 04/05/19 at 21:30 Insulin Glargine (Lantus) 5 units DAILY@2000 SC Last administered on 04/07/19 20:13; Admin Dose 5 UNITS; Start 04/06/19 at 20:00 Fluconazole (Diflucan) 100 mg DAILY PO Last administered on 04/08/19 09:15; Admin Dose 100 MG; Start 04/06/19 at 20:30; Stop 04/09/19 at 20:29 Nystatin (Nystatin Susp) 5 ml Q8 PO Last administered on 04/08/19 05:33; Admin Dose 5 ML; Start 04/06/19 at 22:00; Stop 04/13/19 at 21:59 Calcium Acetate (Phoslo) 667 mg WITH MEALS PO Last administered on 04/08/19 12:00; Admin Dose 667 MG; Start 04/07/19 at 11:30 Multivit/Ca Carb/ B Cmplx/FA/Prenat (Gilda-Jennifer) 1 tab DAILY PO Last administered on 04/08/19 09:15; Admin Dose 1 TAB; Start 04/07/19 at 09:00 Methylprednisolone Sodium Succinate (Solu-Medrol) 30 mg Q12 IV Last administered on 04/08/19 09:15; Admin Dose 30 MG; Start 04/07/19 at 21:00 Insulin Human NPH (Humulin N) 4 unit Q12 SC Last administered on 04/08/19 09:59; Admin Dose 4 UNIT; Start 04/07/19 at 21:00 Heparin Sodium (Porcine) (Heparin (1000 Units/ml)) 4,500 unit AFTER DIALYSIS CATHETER Last administered on 04/07/19 15:48; Admin Dose 4,500 UNIT; Start 04/07/19 at 16:00 Ranitidine HCl (Zantac) 150 mg QHS PO ; Start 04/08/19 at 21:00 Assessment/Plan Hospital Course (Demo Recall) IMPRESSION: 1. Acute hypoxemic respiratory failure significant radiographic changes concerning for pulmonary edema versus opportunistic infection. 2. Acute on chronic renal failure, now requiring dialysis. 3. Peripheral vascular disease, status post revascularization. 4. Likely aspiration pneumonia as well. 5. Diabetes mellitus. 6. History of hypertension. 7. Benign prostatic hypertrophy. RECOMMENDATIONS: 1. Off high flow O2 now on regular nasal cannula. 2. Aspiration precautions continue antibiotics per infectious diseases currently on meropenem 3. We will decrease steroid dosing. 4. Hemodialysis per nephrology. Continue with volume removal as tolerated. PT encourage out of bed. DMITRI PAIGE MD, [facility] Apr 08, 2019 12:21
[2019-04-08] MEDS: HYDROCODONE/APAP (5/325) TAB PO PRN ×2 (12:29→19:31)
[2019-04-08 15:33] VITALS: BP 143/77; PULSE 74; RESP 17
--- NOTE | 2019-04-08 16:32 | CONS ---
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 - s/p R TMA with wound VAC placement 04/06/19 - PVD of RLE - h/o percutaneous intervention of RLE in the past - h/o occluded R popliteal artery in doppler in 01/2019 - s/p R SFA to posterior tibial bypass using in situ greater saphenous vein from R thigh and calf on 03/23/2019 - Pt completed meropenem (03/29/2019-04/04/2019), pip/tazo (03/25/19-03/28/19) and IV vancomycin (03/25/19-03/30/19) # other conditions - thrush noted 04/06/19 - DM - Hgb A1c 5.7% - former smoker - constipation recommendations: - complete PO fluconazole x 3 days (04/06/2019-) and nystatin swish and spit x 7 days (04/06/19-) - Pt is on steroid taper by pulm service; will monitor WBC level Management d/w patient Consultation Date/Type/Reason Admit Date/Time Mar 23, 2019 at 06:13 Initial Consult Date 03/28/19 Type of Consult ID Requesting Provider: JOSE PARRY MD Date/Time of Note DATE: 04/08/19 TIME: 16:30 24 HR Interval Summary Constitutional: improved, requiring O2 Detailed Summary Eyes: no complaints ENT: no complaints Respiratory: no complaints, other (still requires O2 2L) Cardiovascular: no complaints Gastrointestinal: no complaints Genitourinary: no complaints Musculoskeletal: bone/joint pain (had a pulse of pain of R foot today) Skin: no complaints Neurologic: no complaints Exam/Review of Systems Exam Vitals Vital Signs Date Temp Pulse Resp B/P (MAP) Pulse Ox O2 O2 Flow FiO2 Time Delivery Rate 04/08/19 97.8 74 17 143/77 100 15:33 (99) 04/08/19 Nasal 2.0 12:05 Cannula 04/05/19 35 08:01 Intake and Output 04/07/19 04/07/19 04/08/19 1414:59 22:59 06:59 IntakeIntake Total 100 ml 120 ml 220 ml OutputOutput Total 2500 ml BalanceBalance 100 ml -2380 ml 220 ml Constitutional: alert, oriented Psych: no complaints, nl mood/affect Head: normocephalic, atraumatic Eyes: nl conjunctiva, nl lids, nl sclera ENMT: nl external ears & nose, nl nasal mucosa & septum, mucosa pink and moist, other (resolving thrush) Neck: non-tender Respiratory: clear to auscultation, normal air movement Cardiovascular: regular rate and rhythm, nl pulses, other (the vascular surgical site of RLE is healing with steri-strips, no blood) Gastrointestinal: soft, non-tender; No distended Musculoskeletal: other (s/p R TMA with wound VAC) Extremities: No edema 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, nl mental status, nl speech Skin: nl turgor; No rash or lesions Results Result Diagram: 04/07/19 0443 04/07/19 1702 Results 24hrs Laboratory Tests Test 04/07/19 17:02 04/07/19 17:07 04/07/19 20:10 04/07/19 20:59 Potassium Level 3.8 Magnesium Level 2.0 Bedside Glucose 193 235 H 295 H Test 04/08/19 01:29 04/08/19 07:54 04/08/19 09:51 04/08/19 11:49 Bedside Glucose 109 83 97 87 Medications Medication Current Medications Aspirin (Aspirin) 325 mg DAILY PO Last administered on 04/08/19at 09:15; Admin Dose 325 MG; Start 03/24/19 at 09:00 Atorvastatin Calcium (Lipitor) 40 mg QHS PO Last administered on 04/07/19at 21:06; Admin Dose 40 MG; Start 03/23/19 at 21:00 Linagliptin (Tradjenta) 5 mg DAILY PO Last administered on 04/08/19at 09:15; Admin Dose 5 MG; Start 03/24/19 at 09:00 Ondansetron HCl (Zofran Inj) 4 mg Q4H PRN IV NAUSEA AND/OR VOMITING Last administered on 04/05/19 06:29; Admin Dose 4 MG; Start 03/23/19 at 18:00 Hydromorphone HCl (Dilaudid) 2 mg Q4H PRN IV SEVERE PAIN LEVEL 7-10 Last administered on 04/05/19 01:09; Admin Dose 2 MG; Start 03/23/19 at 18:00 Miscellaneous Information 1 ea NOTE XX ; Start 03/23/19 at 18:30 Glucose (Glutose) 15 gm Q15M PRN PO DECREASED GLUCOSE; Start 03/23/19 at 18:30 Glucose (Glutose) 22.5 gm Q15M PRN PO DECREASED GLUCOSE; Start 03/23/19 at 18:30 Dextrose (D50w Syringe) 25 ml Q15M PRN IV DECREASED GLUCOSE; Start 03/23/19 at 18:30 Dextrose (D50w Syringe) 50 ml Q15M PRN IV DECREASED GLUCOSE; Start 03/23/19 at 18:30 Glucagon (Glucagen) 1 mg Q15M PRN IM DECREASED GLUCOSE; Start 03/23/19 at 18:30 Glucose (Glutose) 15 gm Q15M PRN BUCCAL DECREASED GLUCOSE; Start 03/23/19 at 18:30 Epoetin Joseph-epbx (Retacrit (Esrd)) 10,000 unit TuThSa@1700 SC Last administered on 04/07/19 17:12; Admin Dose 10,000 UNIT; Start 03/24/19 at 17:00 Acetaminophen/ Hydrocodone Bitart ([place] (5/325)) 1 tab Q6H PRN PO .MOD PAIN 4- 6 Last administered on 04/08/19 12:29; Admin Dose 1 TAB; Start 03/24/19 at 22:30 Albumin Human 100 ml @ 100 mls/hr WITH DIALYSIS PRN IV SBP <90 DURING DIALYSIS Last administered on 04/07/19 12:34; Admin Dose 100 MLS/HR; Start 03/27/19 at 12:00 Albuterol/ Ipratropium (Duoneb) 3 ml Q4HWA RESP THERAPY HHN Last administered on 04/08/19 12:05; Admin Dose 3 ML; Start 03/27/19 at 21:00 Magnesium Hydroxide (Milk Of Mag) 30 ml DAILY PRN PO CONSTIPATION Last administered on 03/28/19 20:48; Admin Dose 30 ML; Start 03/28/19 at 15:30 Heparin Sodium (Porcine) (Heparin (5000 Units/1ml)) 5,000 unit BID SC Last administered on 04/08/19 09:46; Admin Dose 5,000 UNIT; Start 03/29/19 at 21:00 Metoclopramide HCl (Reglan) 5 mg Q6 IV Last administered on 04/08/19 12:01; Admin Dose 5 MG; Start 03/29/19 at 18:00 Diagnostic Test (Pha) (Accu-Chek) 1 ea 02 XX Last administered on 04/08/19 02:13; Admin Dose 1 EA; Start 04/01/19 at 02:00 Insulin Aspart (Novolog Insulin Pen) NOVOLOG *MODERATE* ALGORITHM WITH MEALS BEDTIME SC Last administered on 04/07/19 21:01; Admin Dose 3 UNIT; Start 03/31/19 at 21:00 Metoclopramide HCl (Reglan) 5 mg Q6H PRN IV NAUSEA; Start 04/01/19 at 09:35 Chlorpromazine (Thorazine) 25 mg BID PRN PO hiccups; Start 04/01/19 at 20:00 Docusate Sodium/ Ferrous Fumarate (Angela-Sequels) 1 tab DAILY PO Last administered on 04/08/19 09:15; Admin Dose 1 TAB; Start 04/02/19 at 12:30; Stop 05/02/19 at 12:29 Carvedilol (Coreg) 18.75 mg BID PO Last administered on 04/07/19 21:07; Admin Dose 18.75 MG; Start 04/05/19 at 09:00 Alfuzosin HCl (Uroxatral) 10 mg HS PO Last administered on 04/07/19 21:06; Admin Dose 10 MG; Start 04/05/19 at 21:00 Losartan Potassium (Cozaar) 25 mg QHS PO Last administered on 04/07/19 21:06; Admin Dose 25 MG; Start 04/05/19 at 21:00 Zolpidem Tartrate (Ambien) 5 mg HS PRN PO INSOMNIA Last administered on 04/07/19 23:31; Admin Dose 5 MG; Start 04/05/19 at 21:30 Insulin Glargine (Lantus) 5 units DAILY@2000 SC Last administered on 04/07/19 20:13; Admin Dose 5 UNITS; Start 04/06/19 at 20:00 Fluconazole (Diflucan) 100 mg DAILY PO Last administered on 04/08/19 09:15; Admin Dose 100 MG; Start 04/06/19 at 20:30; Stop 04/09/19 at 20:29 Nystatin (Nystatin Susp) 5 ml Q8 PO Last administered on 04/08/19 14:52; Admin Dose 5 ML; Start 04/06/19 at 22:00; Stop 04/13/19 at 21:59 Calcium Acetate (Phoslo) 667 mg WITH MEALS PO Last administered on 04/08/19 12:00; Admin Dose 667 MG; Start 04/07/19 at 11:30 Multivit/Ca Carb/ B Cmplx/FA/Prenat (Gilda-Jennifer) 1 tab DAILY PO Last administered on 04/08/19 09:15; Admin Dose 1 TAB; Start 04/07/19 at 09:00 Methylprednisolone Sodium Succinate (Solu-Medrol) 30 mg Q12 IV Last adminis tered on 04/08/19 09:15; Admin Dose 30 MG; Start 04/07/19 at 21:00 Insulin Human NPH (Humulin N) 4 unit Q12 SC Last administered on 04/08/19 09:59; Admin Dose 4 UNIT; Start 04/07/19 at 21:00 Heparin Sodium (Porcine) (Heparin (1000 Units/ml)) 4,500 unit AFTER DIALYSIS CATHETER Last administered on 04/07/19 15:48; Admin Dose 4,500 UNIT; Start 04/07/19 at 16:00 Ranitidine HCl (Zantac) 150 mg QHS PO ; Start 04/08/19 at 21:00 LUDMILA ANTOINE M.D. Apr 08, 2019 16:32
--- NOTE | 2019-04-08 17:23 | CONS ---
Assessment/Plan Assessment/Plan Hospital Course (Demo Recall) Acute respiratory failure Acute kidney injury on hemodialysis Peripheral arterial disease status post bypass Hypertension Preserved left ventricular ejection fraction echocardiogram January 2019 Continue beta-jillian and titrate if needed. Continue on telemetry monitoring Fluid management via hemodialysis as per nephrology Continue statin and aspirin therapy if able to take p.o., if no contrai ndication, change asa to 81mg daily Consultation Date/Type/Reason Admit Date/Time Mar 23, 2019 at 06:13 Initial Consult Date 03/28/19 Type of Consult Cardiology Requesting Provider: MICHELE PARRY MD Date/Time of Note DATE: 04/08/19 TIME: 17:22 24 HR Interval Summary Free Text/Dictation no sob,cp,palp Exam/Review of Systems Vital Signs Vitals Vital Signs Date Temp Pulse Resp B/P (MAP) Pulse Ox O2 O2 Flow FiO2 Time Delivery Rate 04/08/19 83 18 99 Nasal 2.0 17:00 Cannula 04/08/19 97.8 143/77 15:33 (99) 04/05/19 35 08:01 Intake and Output 04/07/19 04/07/19 04/08/19 1515:00 23:00 07:00 IntakeIntake Total 100 ml 120 ml 220 ml OutputOutput Total 2500 ml BalanceBalance 100 ml -2380 ml 220 ml Exam Constitutional: alert, oriented Head: normocephalic Respiratory: other (course bs, no wheeze) Cardiovascular: regular rate and rhythm (s1s2) Gastrointestinal: soft, non-tender, bowel sounds Extremities: edema Labs Result Diagram: 04/07/19 0443 04/07/19 1702 Results 24hrs Laboratory Tests Test 04/07/19 20:10 04/07/19 20:59 04/08/19 01:29 04/08/19 07:54 Bedside Glucose 235 H 295 H 109 83 Test 04/08/19 09:51 04/08/19 11:49 Bedside Glucose 97 87 Medications Medications Current Medications Aspirin (Aspirin) 325 mg DAILY PO Last administered on 04/08/19at 09:15; Admin Dose 325 MG; Start 03/24/19 at 09:00 Atorvastatin Calcium (Lipitor) 40 mg QHS PO Last administered on 04/07/19at 21:06; Admin Dose 40 MG; Start 03/23/19 at 21:00 Linagliptin (Tradjenta) 5 mg DAILY PO Last administered on 04/08/19 09:15; Admin Dose 5 MG; Start 03/24/19 at 09:00 Ondansetron HCl (Zofran Inj) 4 mg Q4H PRN IV NAUSEA AND/OR VOMITING Last administered on 04/05/19 06:29; Admin Dose 4 MG; Start 03/23/19 at 18:00 Hydromorphone HCl (Dilaudid) 2 mg Q4H PRN IV SEVERE PAIN LEVEL 7-10 Last administered on 04/05/19 01:09; Admin Dose 2 MG; Start 03/23/19 at 18:00 Miscellaneous Information 1 ea NOTE XX ; Start 03/23/19 at 18:30 Glucose (Glutose) 15 gm Q15M PRN PO DECREASED GLUCOSE; Start 03/23/19 at 18:30 Glucose (Glutose) 22.5 gm Q15M PRN PO DECREASED GLUCOSE; Start 03/23/19 at 18:30 Dextrose (D50w Syringe) 25 ml Q15M PRN IV DECREASED GLUCOSE; Start 03/23/19 at 18:30 Dextrose (D50w Syringe) 50 ml Q15M PRN IV DECREASED GLUCOSE; Start 03/23/19 at 18:30 Glucagon (Glucagen) 1 mg Q15M PRN IM DECREASED GLUCOSE; Start 03/23/19 at 18:30 Glucose (Glutose) 15 gm Q15M PRN BUCCAL DECREASED GLUCOSE; Start 03/23/19 at 18:30 Epoetin Joseph-epbx (Retacrit (Esrd)) 10,000 unit TuThSa@1700 SC Last administered on 04/07/19at 17:12; Admin Dose 10,000 UNIT; Start 03/24/19 at 17:00 Acetaminophen/ Hydrocodone Bitart ([place] (5/325)) 1 tab Q6H PRN PO .MOD PAIN 4- 6 Last administered on 04/08/19 12:29; Admin Dose 1 TAB; Start 03/24/19 at 22:30 Albumin Human 100 ml @ 100 mls/hr WITH DIALYSIS PRN IV SBP <90 DURING DIALYSIS Last administered on 04/07/19 12:34; Admin Dose 100 MLS/HR; Start 03/27/19 at 12:00 Albuterol/ Ipratropium (Duoneb) 3 ml Q4HWA RESP THERAPY HHN Last administered on 04/08/19 17:00; Admin Dose 3 ML; Start 03/27/19 at 21:00 Magnesium Hydroxide (Milk Of Mag) 30 ml DAILY PRN PO CONSTIPATION Last administered on 03/28/19 20:48; Admin Dose 30 ML; Start 03/28/19 at 15:30 Heparin Sodium (Porcine) (Heparin (5000 Units/1ml)) 5,000 unit BID SC Last administered on 04/08/19 09:46; Admin Dose 5,000 UNIT; Start 03/29/19 at 21:00 Metoclopramide HCl (Reglan) 5 mg Q6 IV Last administered on 04/08/19 12:01; Admin Dose 5 MG; Start 03/29/19 at 18:00 Diagnostic Test (Pha) (Accu-Chek) 1 ea 02 XX Last administered on 04/08/19 02:13; Admin Dose 1 EA; Start 04/01/19 at 02:00 Insulin Aspart (Novolog Insulin Pen) NOVOLOG *MODERATE* ALGORITHM WITH MEALS BEDTIME SC Last administered on 04/07/19 21:01; Admin Dose 3 UNIT; Start 03/31/19 at 21:00 Metoclopramide HCl (Reglan) 5 mg Q6H PRN IV NAUSEA; Start 04/01/19 at 09:35 Chlorpromazine (Thorazine) 25 mg BID PRN PO hiccups; Start 04/01/19 at 20:00 Docusate Sodium/ Ferrous Fumarate (Angela-Sequels) 1 tab DAILY PO Last administered on 04/08/19 09:15; Admin Dose 1 TAB; Start 04/02/19 at 12:30; Stop 05/02/19 at 12:29 Carvedilol (Coreg) 18.75 mg BID PO Last administered on 04/07/19 21:07; Admin Dose 18.75 MG; Start 04/05/19 at 09:00 Alfuzosin HCl (Uroxatral) 10 mg HS PO Last administered on 04/07/19 21:06; Admin Dose 10 MG; Start 04/05/19 at 21:00 Losartan Potassium (Cozaar) 25 mg QHS PO Last administered on 04/07/19 21:06; Admin Dose 25 MG; Start 04/05/19 at 21:00 Zolpidem Tartrate (Ambien) 5 mg HS PRN PO INSOMNIA Last administered on 04/07/19 23:31; Admin Dose 5 MG; Start 04/05/19 at 21:30 Insulin Glargine (Lantus) 5 units DAILY@2000 SC Last administered on 04/07/19 20:13; Admin Dose 5 UNITS; Start 04/06/19 at 20:00 Fluconazole (Diflucan) 100 mg DAILY PO Last administered on 04/08/19 09:15; Admin Dose 100 MG; Start 04/06/19 at 20:30; Stop 04/09/19 at 20:29 Nystatin (Nystatin Susp) 5 ml Q8 PO Last administered on 04/08/19 14:52; Admin Dose 5 ML; Start 04/06/19 at 22:00; Stop 04/13/19 at 21:59 Calcium Acetate (Phoslo) 667 mg WITH MEALS PO Last administered on 04/08/19 12:00; Admin Dose 667 MG; Start 04/07/19 at 11:30 Multivit/Ca Carb/ B Cmplx/FA/Prenat (Gilda-Jennifer) 1 tab DAILY PO Last administered on 04/08/19 09:15; Admin Dose 1 TAB; Start 04/07/19 at 09:00 Methylprednisolone Sodium Succinate (Solu-Medrol) 30 mg Q12 IV Last administered on 04/08/19 09:15; Admin Dose 30 MG; Start 04/07/19 at 21:00 Insulin Human NPH (Humulin N) 4 unit Q12 SC Last administered on 04/08/19 09:59; Admin Dose 4 UNIT; Start 04/07/19 at 21:00 Heparin Sodium (Porcine) (Heparin (1000 Units/ml)) 4,500 unit AFTER DIALYSIS CATHETER Last administered on 04/07/19 15:48; Admin Dose 4,500 UNIT; Start 04/07/19 at 16:00 Ranitidine HCl (Zantac) 150 mg QHS PO ; Start 04/08/19 at 21:00 Michele Richard DO Apr 08, 2019 17:23
--- NOTE | 2019-04-08 18:50 | PN ---
Date/Time of Note Date/Time of Note DATE: 04/08/19 TIME: 18:47 Assessment/Plan VTE Prophylaxis Risk score (from Nsg)>0 risk: 5 SCD applied (from Ns): No SCD contraindicated: other Pharmacological prophylaxis: heparin (post rt leg amp and vasc procedure) Lines/Catheters IV Catheter Type (from [facility]): Peripheral IV Urinary Cath still in place: No Assessment/Plan Result Diagram: 04/07/19 0443 04/07/19 1702 Results 24hrs Laboratory Tests Test 04/07/19 20:10 04/07/19 20:59 04/08/19 01:29 04/08/19 07:54 Bedside Glucose 235 H 295 H 109 83 Test 04/08/19 09:51 04/08/19 11:49 04/08/19 17:34 Bedside Glucose 97 87 141 Subjective 24 Hr Interval Summary Free Text/Dictation 68 yr old man with dm, esrd, pvd,etc...post tmt amp, rt foot wrapped, wound vac on. not sob, off oxygen, vs ok. diabets in good control, steriods will probably taper some more and may have to adjust further. lungs clear, hr irregular, abd soft, no edema. Exam/Review of Systems Exam Vitals Vital Signs Date Temp Pulse Resp B/P (MAP) Pulse Ox O2 O2 Flow FiO2 Time Delivery Rate 04/08/19 83 18 99 Nasal 2.0 17:00 Cannula 04/08/19 97.8 143/77 15:33 (99) 04/05/19 35 08:01 Intake and Output 04/07/19 04/07/19 04/08/19 1515:00 23:00 07:00 IntakeIntake Total 100 ml 120 ml 220 ml OutputOutput Total 2500 ml BalanceBalance 100 ml -2380 ml 220 ml Results Results 24hrs Laboratory Tests Test 04/07/19 20:10 04/07/19 20:59 04/08/19 01:29 04/08/19 07:54 Bedside Glucose 235 H 295 H 109 83 Test 04/08/19 09:51 04/08/19 11:49 04/08/19 17:34 Bedside Glucose 97 87 141 Medications Medication Current Medications Aspirin (Aspirin) 325 mg DAILY PO Last administered on 04/08/19at 09:15; Admin Dose 325 MG; Start 03/24/19 at 09:00 Atorvastatin Calcium (Lipitor) 40 mg QHS PO Last administered on 04/07/19at 21:06; Admin Dose 40 MG; Start 03/23/19 at 21:00 Linagliptin (Tradjenta) 5 mg DAILY PO Last administered on 04/08/19at 09:15; Admin Dose 5 MG; Start 03/24/19 at 09:00 Ondansetron HCl (Zofran Inj) 4 mg Q4H PRN IV NAUSEA AND/OR VOMITING Last administered on 04/05/19at 06:29; Admin Dose 4 MG; Start 03/23/19 at 18:00 Hydromorphone HCl (Dilaudid) 2 mg Q4H PRN IV SEVERE PAIN LEVEL 7-10 Last administered on 04/05/19at 01:09; Admin Dose 2 MG; Start 03/23/19 at 18:00 Miscellaneous Information 1 ea NOTE XX ; Start 03/23/19 at 18:30 Glucose (Glutose) 15 gm Q15M PRN PO DECREASED GLUCOSE; Start 03/23/19 at 18:30 Glucose (Glutose) 22.5 gm Q15M PRN PO DECREASED GLUCOSE; Start 03/23/19 at 18:30 Dextrose (D50w Syringe) 25 ml Q15M PRN IV DECREASED GLUCOSE; Start 03/23/19 at 18:30 Dextrose (D50w Syringe) 50 ml Q15M PRN IV DECREASED GLUCOSE; Start 03/23/19 at 18:30 Glucagon (Glucagen) 1 mg Q15M PRN IM DECREASED GLUCOSE; Start 03/23/19 at 18:30 Glucose (Glutose) 15 gm Q15M PRN BUCCAL DECREASED GLUCOSE; Start 03/23/19 at 18:30 Epoetin Joseph-epbx (Retacrit (Esrd)) 10,000 unit TuThSa@1700 SC Last administered on 04/07/19at 17:12; Admin Dose 10,000 UNIT; Start 03/24/19 at 17:00 Acetaminophen/ Hydrocodone Bitart ([place] (5/325)) 1 tab Q6H PRN PO .MOD PAIN 4- 6 Last administered on 04/08/19at 12:29; Admin Dose 1 TAB; Start 03/24/19 at 22:30 Albumin Human 100 ml @ 100 mls/hr WITH DIALYSIS PRN IV SBP <90 DURING DIALYSIS Last administered on 04/07/19 12:34; Admin Dose 100 MLS/HR; Start 03/27/19 at 12:00 Albuterol/ Ipratropium (Duoneb) 3 ml Q4HWA RESP THERAPY HHN Last administered on 04/08/19 17:00; Admin Dose 3 ML; Start 03/27/19 at 21:00 Magnesium Hydroxide (Milk Of Mag) 30 ml DAILY PRN PO CONSTIPATION Last administered on 03/28/19 20:48; Admin Dose 30 ML; Start 03/28/19 at 15:30 Heparin Sodium (Porcine) (Heparin (5000 Units/1ml)) 5,000 unit BID SC Last administered on 04/08/19 09:46; Admin Dose 5,000 UNIT; Start 03/29/19 at 21:00 Metoclopramide HCl (Reglan) 5 mg Q6 IV Last administered on 04/08/19 17:35; Admin Dose 5 MG; Start 03/29/19 at 18:00 Diagnostic Test (Pha) (Accu-Chek) 1 ea 02 XX Last administered on 04/08/19 02:13; Admin Dose 1 EA; Start 04/01/19 at 02:00 Insulin Aspart (Novolog Insulin Pen) NOVOLOG *MODERATE* ALGORITHM WITH MEALS BEDTIME SC Last administered on 04/08/19 17:51; Admin Dose 2 UNIT; Start 03/31/19 at 21:00 Metoclopramide HCl (Reglan) 5 mg Q6H PRN IV NAUSEA; Start 04/01/19 at 09:35 Chlorpromazine (Thorazine) 25 mg BID PRN PO hiccups; Start 04/01/19 at 20:00 Docusate Sodium/ Ferrous Fumarate (Angela-Sequels) 1 tab DAILY PO Last administered on 04/08/19 09:15; Admin Dose 1 TAB; Start 04/02/19 at 12:30; Stop 05/02/19 at 12:29 Carvedilol (Coreg) 18.75 mg BID PO Last administered on 04/07/19 21:07; Admin Dose 18.75 MG; Start 04/05/19 at 09:00 Alfuzosin HCl (Uroxatral) 10 mg HS PO Last administered on 04/07/19 21:06; Admin Dose 10 MG; Start 04/05/19 at 21:00 Losartan Potassium (Cozaar) 25 mg QHS PO Last administered on 04/07/19 21:06; Admin Dose 25 MG; Start 04/05/19 at 21:00 Zolpidem Tartrate (Ambien) 5 mg HS PRN PO INSOMNIA Last administered on 04/07/19 23:31; Admin Dose 5 MG; Start 04/05/19 at 21:30 Insulin Glargine (Lantus) 5 units DAILY@2000 SC Last administered on 04/07/19 20:13; Admin Dose 5 UNITS; Start 04/06/19 at 20:00 Fluconazole (Diflucan) 100 mg DAILY PO Last administered on 04/08/19 09:15; Admin Dose 100 MG; Start 04/06/19 at 20:30; Stop 04/09/19 at 20:29 Nystatin (Nystatin Susp) 5 ml Q8 PO Last administered on 04/08/19 14:52; Admin Dose 5 ML; Start 04/06/19 at 22:00; Stop 04/13/19 at 21:59 Calcium Acetate (Phoslo) 667 mg WITH MEALS PO Last administered on 04/08/19 17:34; Admin Dose 667 MG; Start 04/07/19 at 11:30 Multivit/Ca Carb/ B Cmplx/FA/Prenat (Gilda-Jennifer) 1 tab DAILY PO Last administered on 04/08/19 09:15; Admin Dose 1 TAB; Start 04/07/19 at 09:00 Methylprednisolone Sodium Succinate (Solu-Medrol) 30 mg Q12 IV Last administered on 04/08/19 09:15; Admin Dose 30 MG; Start 04/07/19 at 21:00 Insulin Human NPH (Humulin N) 4 unit Q12 SC Last administered on 04/08/19 09:59; Admin Dose 4 UNIT; Start 04/07/19 at 21:00 Heparin Sodium (Porcine) (Heparin (1000 Units/ml)) 4,500 unit AFTER DIALYSIS CATHETER Last administered on 04/07/19 15:48; Admin Dose 4,500 UNIT; Start 04/07/19 at 16:00 Ranitidine HCl (Zantac) 150 mg QHS PO ; Start 04/08/19 at 21:00 CARLOTA YAN MD Apr 08, 2019 18:50
[2019-04-08 19:36] VITALS: BP 152/68; PULSE 70; RESP 20
[2019-04-08] MEDS: INSULIN GLARGINE [LANTus] (100 UNITS/ML) SYG SC SCH (20:57)
[2019-04-08] MEDS: ALFUZOSIN (SR) 10 MG TAB PO SCH (20:59)
[2019-04-08] MEDS: ATORVASTATIN 40 MG TAB PO SCH (21:01)
[2019-04-08] MEDS: RANITIDINE 150 MG TAB PO SCH (21:01)
[2019-04-08] MEDS: LOSARTAN 25 MG TAB PO SCH (21:36)
[2019-04-08 23:21] VITALS: BP 129/57; PULSE 72
[2019-04-09] VITALS (26 sets, daily range): BP systolic 90–173; BP diastolic 56–83; PULSE 61–75; RESP 12–22
[2019-04-09] MEDS: METOCLOPRAMIDE 10 MG INJ IV SCH ×4 (00:27→17:11)
[2019-04-09] MEDS: ACCU-CHEK XX SCH (02:00)
[2019-04-09] MEDS: ZOLPIDEM 5 MG TAB PO PRN (02:39)
[2019-04-09] MEDS: NYSTATIN SUSP 5 ML CUP PO SCH ×3 (06:06→22:07)
[2019-04-09] MEDS: INSULIN ASPART [NOVOLOG] 3 ML PEN SC SCH ×4 (07:48→21:00)
--- NOTE | 2019-04-09 08:10 | CONS ---
Assessment/Plan Assessment/Plan Assessment/Plan (Daily) 1. CKD, to be dialyzed today 2. Podiatric surgery is planned today, per staff radiologist->wound closure 3. Sl inc anemia, will follow 4. BP well controlled 5. Await case management intervention regarding Out Patient dialysis center 6. Pneumonia resolved 7. Volume status-Euvolemic Consultation Date/Type/Reason Admit Date/Time Mar 23, 2019 at 06:13 Initial Consult Date 03/21/19 Requesting Provider: JOSE PARRY MD Date/Time of Note DATE: 04/09/19 TIME: 08:08 Detailed Summary Respiratory: No cough, No shortness of breath Cardiovascular: no complaints Genitourinary: no complaints Exam/Review of Systems Exam Vitals Vital Signs Date Temp Pulse Resp B/P (MAP) Pulse Ox O2 O2 Flow FiO2 Time Delivery Rate 04/09/19 Nasal 2.0 07:37 Cannula 04/09/19 98.3 71 18 137/63 96 07:16 (87) 04/05/19 35 08:01 Intake and Output 04/08/19 04/08/19 04/09/19 1414:59 22:59 06:59 IntakeIntake Total 910 ml 670 ml OutputOutput Total 850 ml BalanceBalance 910 ml 670 ml -850 ml Neck: No jvd Respiratory: clear to auscultation Cardiovascular: edema Extremities: No edema, No pitting pedal edema, No tenderness Results Result Diagram: 04/09/19 0551 04/09/19 0551 Results 24hrs Laboratory Tests Test 04/08/19 09:51 04/08/19 11:49 04/08/19 17:34 04/08/19 20:54 Bedside Glucose 97 87 141 156 Test 04/09/19 05:51 04/09/19 07:48 White Blood Count 13.7 H Red Blood Count 3.15 L Hemoglobin 9.6 L Hematocrit 28.9 L Mean Corpuscular 91.7 Volume Mean Corpuscular 30.5 Hemoglobin Mean Corpuscular 33.2 Hemoglobin Concent Red Cell 16.3 H Distribution Width Platelet Count 231 Mean Platelet Volume 11.0 H Immature 0.700 H Granulocytes % Neutrophils % 91.8 H Lymphocytes % 1.8 L Monocytes % 5.6 Eosinophils % 0.0 Basophils % 0.1 Nucleated Red Blood 0.1 H Cells % Immature 0.100 H Granulocytes # Neutrophils # 12.6 H Lymphocytes # 0.2 L Monocytes # 0.8 Eosinophils # 0.0 Basophils # 0.0 Nucleated Red Blood 0.0 Cells # Sodium Level 129 L Potassium Level 5.0 Chloride Level 93 L Carbon Dioxide Level 26 Anion Gap 10 Blood Urea Nitrogen 71 H Creatinine 4.77 H Est Glomerular 12 L Filtrat Rate mL/min Glucose Level 111 Calcium Level 7.5 L Phosphorus Level 5.4 H Hepatitis B Surface NEGATIVE Antibody Bedside Glucose 108 Medications Medication Current Medications Aspirin (Aspirin) 325 mg DAILY PO Last administered on 04/08/19 09:15; Admin Dose 325 MG; Start 03/24/19 at 09:00 Atorvastatin Calcium (Lipitor) 40 mg QHS PO Last administered on 04/08/19 21:01; Admin Dose 40 MG; Start 03/23/19 at 21:00 Linagliptin (Tradjenta) 5 mg DAILY PO Last administered on 04/08/19 09:15; Admin Dose 5 MG; Start 03/24/19 at 09:00 Ondansetron HCl (Zofran Inj) 4 mg Q4H PRN IV NAUSEA AND/OR VOMITING Last administered on 04/05/19at 06:29; Admin Dose 4 MG; Start 03/23/19 at 18:00 Hydromorphone HCl (Dilaudid) 2 mg Q4H PRN IV SEVERE PAIN LEVEL 7-10 Last administered on 04/05/19at 01:09; Admin Dose 2 MG; Start 03/23/19 at 18:00 Miscellaneous Information 1 ea NOTE XX ; Start 03/23/19 at 18:30 Glucose (Glutose) 15 gm Q15M PRN PO DECREASED GLUCOSE; Start 03/23/19 at 18:30 Glucose (Glutose) 22.5 gm Q15M PRN PO DECREASED GLUCOSE; Start 03/23/19 at 18:30 Dextrose (D50w Syringe) 25 ml Q15M PRN IV DECREASED GLUCOSE; Start 03/23/19 at 18:30 Dextrose (D50w Syringe) 50 ml Q15M PRN IV DECREASED GLUCOSE; Start 03/23/19 at 18:30 Glucagon (Glucagen) 1 mg Q15M PRN IM DECREASED GLUCOSE; Start 03/23/19 at 18:30 Glucose (Glutose) 15 gm Q15M PRN BUCCAL DECREASED GLUCOSE; Start 03/23/19 at 18:30 Epoetin Joseph-epbx (Retacrit (Esrd)) 10,000 unit TuThSa@1700 SC Last administered on 04/07/19 17:12; Admin Dose 10,000 UNIT; Start 03/24/19 at 17:00 Acetaminophen/ Hydrocodone Bitart ([place] (5/325)) 1 tab Q6H PRN PO .MOD PAIN 4- 6 Last administered on 04/08/19 19:31; Admin Dose 1 TAB; Start 03/24/19 at 22:30 Albumin Human 100 ml @ 100 mls/hr WITH DIALYSIS PRN IV SBP <90 DURING DIALYSIS Last administered on 04/07/19 12:34; Admin Dose 100 MLS/HR; Start 03/27/19 at 12:00 Albuterol/ Ipratropium (Duoneb) 3 ml Q4HWA RESP THERAPY HHN Last administered on 04/08/19 21:18; Admin Dose 3 ML; Start 03/27/19 at 21:00 Magnesium Hydroxide (Milk Of Mag) 30 ml DAILY PRN PO CONSTIPATION Last administered on 03/28/19 20:48; Admin Dose 30 ML; Start 03/28/19 at 15:30 Heparin Sodium (Porcine) (Heparin (5000 Units/1ml)) 5,000 unit BID SC Last administered on 04/08/19 21:04; Admin Dose 5,000 UNIT; Start 03/29/19 at 21:00 Metoclopramide HCl (Reglan) 5 mg Q6 IV Last administered on 04/09/19 06:06; Admin Dose 5 MG; Start 03/29/19 at 18:00 Diagnostic Test (Pha) (Accu-Chek) 1 ea 02 XX Last administered on 04/08/19 0 2:13; Admin Dose 1 EA; Start 04/01/19 at 02:00 Insulin Aspart (Novolog Insulin Pen) NOVOLOG *MODERATE* ALGORITHM WITH MEALS BEDTIME SC Last administered on 04/08/19 17:51; Admin Dose 2 UNIT; Start 03/31/19 at 21:00 Metoclopramide HCl (Reglan) 5 mg Q6H PRN IV NAUSEA; Start 04/01/19 at 09:35 Chlorpromazine (Thorazine) 25 mg BID PRN PO hiccups; Start 04/01/19 at 20:00 Docusate Sodium/ Ferrous Fumarate (Angela-Sequels) 1 tab DAILY PO Last administered on 04/08/19 09:15; Admin Dose 1 TAB; Start 04/02/19 at 12:30; Stop 05/02/19 at 12:29 Carvedilol (Coreg) 18.75 mg BID PO Last administered on 04/08/19 21:01; Admin Dose 18.75 MG; Start 04/05/19 at 09:00 Alfuzosin HCl (Uroxatral) 10 mg HS PO Last administered on 04/08/19 20:59; Admin Dose 10 MG; Start 04/05/19 at 21:00 Losartan Potassium (Cozaar) 25 mg QHS PO Last administered on 04/08/19 21:36; Admin Dose 25 MG; Start 04/05/19 at 21:00 Zolpidem Tartrate (Ambien) 5 mg HS PRN PO INSOMNIA Last administered on 04/09/19 02:39; Admin Dose 5 MG; Start 04/05/19 at 21:30 Insulin Glargine (Lantus) 5 units DAILY@2000 SC Last administered on 04/08/19 20:57; Admin Dose 5 UNITS; Start 04/06/19 at 20:00 Fluconazole (Diflucan) 100 mg DAILY PO Last administered on 04/08/19 09:15; Admin Dose 100 MG; Start 04/06/19 at 20:30; Stop 04/09/19 at 20:29 Nystatin (Nystatin Susp) 5 ml Q8 PO Last administered on 04/09/19 06:06; Admin Dose 5 ML; Start 04/06/19 at 22:00; Stop 04/13/19 at 21:59 Calcium Acetate (Phoslo) 667 mg WITH MEALS PO Last administered on 04/08/19 17:34; Admin Dose 667 MG; Start 04/07/19 at 11:30 Multivit/Ca Carb/ B Cmplx/FA/Prenat (Gilda-Jennifer) 1 tab DAILY PO Last administered on 04/08/19 09:15; Admin Dose 1 TAB; Start 04/07/19 at 09:00 Methylprednisolone Sodium Succinate (Solu-Medrol) 30 mg Q12 IV Last administ ered on 04/08/19 20:59; Admin Dose 30 MG; Start 04/07/19 at 21:00 Insulin Human NPH (Humulin N) 4 unit Q12 SC Last administered on 04/08/19 21:09; Admin Dose 4 UNIT; Start 04/07/19 at 21:00 Heparin Sodium (Porcine) (Heparin (1000 Units/ml)) 4,500 unit AFTER DIALYSIS CATHETER Last administered on 04/07/19 15:48; Admin Dose 4,500 UNIT; Start 04/07/19 at 16:00 Ranitidine HCl (Zantac) 150 mg QHS PO Last administered on 04/08/19 21:01; Admin Dose 150 MG; Start 04/08/19 at 21:00 DOT ASHLEY MD Apr 09, 2019 08:10
[2019-04-09] MEDS: ALBUTEROL/IPRATROPIUM (NEB) 3 ML AMP HHN SCH ×4 (08:12→20:18)
[2019-04-09] MEDS: CALCIUM ACETATE 667 MG CAP PO SCH ×3 (08:24→17:13)
[2019-04-09] MEDS: FERROUS FUMARATE (SR) TAB PO SCH (08:25)
[2019-04-09] MEDS: LINAGLIPTIN 5 MG TABLET PO SCH (08:25)
[2019-04-09] MEDS: ASPIRIN 325 MG TAB PO SCH (08:26)
[2019-04-09] MEDS: MULTIVIT/CA CARB/B CMPLX/FA TAB PO SCH (08:26)
[2019-04-09] MEDS: FLUCONAZOLE 100 MG TAB PO SCH (08:26)
[2019-04-09] MEDS: METHYLPREDNISOLONE 40 MG INJ IV SCH (08:27)
[2019-04-09] MEDS: HEPARIN 5,000 UNIT/1 ML VIAL SC SCH ×2 (08:38→21:20)
[2019-04-09] MEDS: NPH, HUMAN INSULIN ISOPHANE 3ML VIAL SC SCH (08:51)
--- NOTE | 2019-04-09 09:49 | CONS ---
Consult Date/Type/Reason Admit Date/Time Mar 23, 2019 at 06:13 Initial Consult Date 03/28/19 Type of Consult Pulmonary Requesting Provider: JOSE PARRY MD Date/Time of Note DATE: 04/09/19 TIME: 09:47 Subjective Respiratory status continues to improve Objective Vital Signs Date Temp Pulse Resp B/P (MAP) Pulse Ox O2 O2 Flow FiO2 Time Delivery Rate 04/09/19 2.0 08:15 04/09/19 63 15 98 Nasal 08:15 Cannula 04/09/19 98.3 137/63 07:16 (87) 04/05/19 35 08:01 Intake and Output 04/08/19 04/08/19 04/09/19 1515:00 23:00 07:00 IntakeIntake Total 910 ml 670 ml OutputOutput Total 850 ml BalanceBalance 910 ml 670 ml -850 ml Exam GENERAL: Elderly gentleman appears comfortable at rest no acute distress. VITAL SIGNS: per chart NECK: Supple. No JVD or lymphadenopathy. CARDIAC EXAM: S1, S2. No added sounds or murmurs. CHEST: Diminished air entry bilaterally with rales ABDOMEN: Soft, nontender. No guarding or rebound. EXTREMITIES: No cyanosis, clubbing or edema. NEUROLOGIC: Generalized weakness. Vent Setting Fraction of Inspired Oxygen pe: 35 Results/Medications Result Diagram: 04/09/19 0551 04/09/19 0551 Results 24 hrs Laboratory Tests Test 04/08/19 09:51 04/08/19 11:49 04/08/19 17:34 04/08/19 20:54 Bedside Glucose 97 87 141 156 Test 04/09/19 05:51 04/09/19 07:48 White Blood Count 13.7 H Red Blood Count 3.15 L Hemoglobin 9.6 L Hematocrit 28.9 L Mean Corpuscular 91.7 Volume Mean Corpuscular 30.5 Hemoglobin Mean Corpuscular 33.2 Hemoglobin Concent Red Cell 16.3 H Distribution Width Platelet Count 231 Mean Platelet Volume 11.0 H Immature 0.700 H Granulocytes % Neutrophils % 91.8 H Lymphocytes % 1.8 L Monocytes % 5.6 Eosinophils % 0.0 Basophils % 0.1 Nucleated Red Blood 0.1 H Cells % Immature 0.100 H Granulocytes # Neutrophils # 12.6 H Lymphocytes # 0.2 L Monocytes # 0.8 Eosinophils # 0.0 Basophils # 0.0 Nucleated Red Blood 0.0 Cells # Sodium Level 129 L Potassium Level 5.0 Chloride Level 93 L Carbon Dioxide Level 26 Anion Gap 10 Blood Urea Nitrogen 71 H Creatinine 4.77 H Est Glomerular 12 L Filtrat Rate mL/min Glucose Level 111 Calcium Level 7.5 L Phosphorus Level 5.4 H Hepatitis B Surface NEGATIVE Antibody Bedside Glucose 108 Medications Current Medications Aspirin (Aspirin) 325 mg DAILY PO Last administered on 04/09/19at 08:26; Admin Dose 325 MG; Start 03/24/19 at 09:00 Atorvastatin Calcium (Lipitor) 40 mg QHS PO Last administered on 04/08/19at 21:01; Admin Dose 40 MG; Start 03/23/19 at 21:00 Linagliptin (Tradjenta) 5 mg DAILY PO Last administered on 04/09/19 08:25; Admin Dose 5 MG; Start 03/24/19 at 09:00 Ondansetron HCl (Zofran Inj) 4 mg Q4H PRN IV NAUSEA AND/OR VOMITING Last administered on 04/05/19at 06:29; Admin Dose 4 MG; Start 03/23/19 at 18:00 Hydromorphone HCl (Dilaudid) 2 mg Q4H PRN IV SEVERE PAIN LEVEL 7-10 Last administered on 04/05/19at 01:09; Admin Dose 2 MG; Start 03/23/19 at 18:00 Miscellaneous Information 1 ea NOTE XX ; Start 03/23/19 at 18:30 Glucose (Glutose) 15 gm Q15M PRN PO DECREASED GLUCOSE; Start 03/23/19 at 18:30 Glucose (Glutose) 22.5 gm Q15M PRN PO DECREASED GLUCOSE; Start 03/23/19 at 18:30 Dextrose (D50w Syringe) 25 ml Q15M PRN IV DECREASED GLUCOSE; Start 03/23/19 at 18:30 Dextrose (D50w Syringe) 50 ml Q15M PRN IV DECREASED GLUCOSE; Start 03/23/19 at 18:30 Glucagon (Glucagen) 1 mg Q15M PRN IM DECREASED GLUCOSE; Start 03/23/19 at 18:30 Glucose (Glutose) 15 gm Q15M PRN BUCCAL DECREASED GLUCOSE; Start 03/23/19 at 18:30 Epoetin Joseph-epbx (Retacrit (Esrd)) 10,000 unit TuThSa@1700 SC Last administered on 04/07/19 17:12; Admin Dose 10,000 UNIT; Start 03/24/19 at 17:00 Acetaminophen/ Hydrocodone Bitart ([place] (5/325)) 1 tab Q6H PRN PO .MOD PAIN 4- 6 Last administered on 04/08/19 19:31; Admin Dose 1 TAB; Start 03/24/19 at 22:30 Albumin Human 100 ml @ 100 mls/hr WITH DIALYSIS PRN IV SBP <90 DURING DIALYSIS Last administered on 04/07/19 12:34; Admin Dose 100 MLS/HR; Start 03/27/19 at 12:00 Albuterol/ Ipratropium (Duoneb) 3 ml Q4HWA RESP THERAPY HHN Last administered on 04/09/19 08:12; Admin Dose 3 ML; Start 03/27/19 at 21:00 Magnesium Hydroxide (Milk Of Mag) 30 ml DAILY PRN PO CONSTIPATION Last administered on 03/28/19 20:48; Admin Dose 30 ML; Start 03/28/19 at 15:30 Heparin Sodium (Porcine) (Heparin (5000 Units/1ml)) 5,000 unit BID SC Last a dministered on 04/09/19 08:38; Admin Dose 5,000 UNIT; Start 03/29/19 at 21:00 Metoclopramide HCl (Reglan) 5 mg Q6 IV Last administered on 04/09/19 06:06; Admin Dose 5 MG; Start 03/29/19 at 18:00 Diagnostic Test (Pha) (Accu-Chek) 1 ea 02 XX Last administered on 04/08/19 02:13; Admin Dose 1 EA; Start 04/01/19 at 02:00 Insulin Aspart (Novolog Insulin Pen) NOVOLOG *MODERATE* ALGORITHM WITH MEALS BEDTIME SC Last administered on 04/08/19 17:51; Admin Dose 2 UNIT; Start 03/31/19 at 21:00 Metoclopramide HCl (Reglan) 5 mg Q6H PRN IV NAUSEA; Start 04/01/19 at 09:35 Chlorpromazine (Thorazine) 25 mg BID PRN PO hiccups; Start 04/01/19 at 20:00 Docusate Sodium/ Ferrous Fumarate (Angela-Sequels) 1 tab DAILY PO Last administered on 04/09/19 08:25; Admin Dose 1 TAB; Start 04/02/19 at 12:30; Sto p 05/02/19 at 12:29 Carvedilol (Coreg) 18.75 mg BID PO Last administered on 04/09/19 08:26; Admin Dose 18.75 MG; Start 04/05/19 at 09:00 Alfuzosin HCl (Uroxatral) 10 mg HS PO Last administered on 04/08/19 20:59; Admin Dose 10 MG; Start 04/05/19 at 21:00 Losartan Potassium (Cozaar) 25 mg QHS PO Last administered on 04/08/19 21:36; Admin Dose 25 MG; Start 04/05/19 at 21:00 Zolpidem Tartrate (Ambien) 5 mg HS PRN PO INSOMNIA Last administered on 04/09/19 02:39; Admin Dose 5 MG; Start 04/05/19 at 21:30 Insulin Glargine (Lantus) 5 units DAILY@2000 SC Last administered on 04/08/19 20:57; Admin Dose 5 UNITS; Start 04/06/19 at 20:00 Fluconazole (Diflucan) 100 mg DAILY PO Last administered on 04/09/19 08:26; Admin Dose 100 MG; Start 04/06/19 at 20:30; Stop 04/09/19 at 20:29 Nystatin (Nystatin Susp) 5 ml Q8 PO Last administered on 04/09/19 06:06; Admin Dose 5 ML; Start 04/06/19 at 22:00; Stop 04/13/19 at 21:59 Calcium Acetate (Phoslo) 667 mg WITH MEALS PO Last administered on 04/09/19 08:24; Admin Dose 667 MG; Start 04/07/19 at 11:30 Multivit/Ca Carb/ B Cmplx/FA/Prenat (Gilda-Jennifer) 1 tab DAILY PO Last administered on 04/09/19 08:26; Admin Dose 1 TAB; Start 04/07/19 at 09:00 Methylprednisolone Sodium Succinate (Solu-Medrol) 30 mg Q12 IV Last administered on 04/09/19 08:27; Admin Dose 30 MG; Start 04/07/19 at 21:00 Insulin Human NPH (Humulin N) 4 unit Q12 SC Last administered on 04/08/19at 21:09; Admin Dose 4 UNIT; Start 04/07/19 at 21:00 Heparin Sodium (Porcine) (Heparin (1000 Units/ml)) 4,500 unit AFTER DIALYSIS CATHETER Last administered on 04/07/19at 15:48; Admin Dose 4,500 UNIT; Start 04/07/19 at 16:00 Ranitidine HCl (Zantac) 150 mg QHS PO Last administered on 04/08/19at 21:01; Admin Dose 150 MG; Start 04/08/19 at 21:00 Assessment/Plan Hospital Course (Demo Recall) IMPRESSION: 1. Acute hypoxemic respiratory failure significant radiographic changes concerning for pulmonary edema versus opportunistic infection. 2. Acute on chronic renal failure, now requiring dialysis. 3. Peripheral vascular disease, status post revascularization. 4. Likely aspiration pneumonia as well. 5. Diabetes mellitus. 6. History of hypertension. 7. Benign prostatic hypertrophy. RECOMMENDATIONS: 1. Off high flow O2 now on regular nasal cannula. 2. Aspiration precautions continue antibiotics per infectious diseases currently on meropenem 3. Decrease prednisone and NPH. 4. Hemodialysis per nephrology. Continue with volume removal as tolerated. PT encourage out of bed. Consider acute rehab unit DMITRI PAIGE MD, [facility] Apr 09, 2019 09:49
[2019-04-09] MEDS: HYDROCODONE/APAP (5/325) TAB PO PRN (11:59)
[2019-04-09] MEDS: HYDROmorphONE 2 MG/ML SYG IV PRN (12:48)
[2019-04-09] MEDS: ALBUMIN HUMAN 25% 100 ML IV PRN (13:05)
[2019-04-09] MEDS: HEPARIN 1000 UNITS/ML 10 ML INJ CATHETER SCH (14:39)
--- NOTE | 2019-04-09 16:29 | CONS ---
Assessment/Plan Assessment/Plan Hospital Course (Demo Recall) Acute respiratory failure Acute kidney injury on hemodialysis Peripheral arterial disease status post bypass Hypertension Preserved left ventricular ejection fraction echocardiogram January 2019 Continue beta-jillian and titrate if needed. Increased dose of losartan given elevated blood pressure Fluid management via hemodialysis as per nephrology Continue statin and aspirin therapy if able to take p.o., if no contraindication, change asa to 81mg daily Consultation Date/Type/Reason Admit Date/Time Mar 23, 2019 at 06:13 Initial Consult Date 03/28/19 Type of Consult Cardiology Requesting Provider: MICHELE PARRY MD Date/Time of Note DATE: 04/09/19 TIME: 16:27 24 HR Interval Summary Free Text/Dictation No shortness of breath, palpitations, chest pain Exam/Review of Systems Vital Signs Vitals Vital Signs Date Temp Pulse Resp B/P (MAP) Pulse Ox O2 O2 Flow FiO2 Time Delivery Rate 04/09/19 97.9 75 19 173/83 96 15:14 (113) 04/09/19 Nasal 2.0 11:15 Cannula 04/05/19 35 08:01 Intake and Output 04/08/19 04/08/19 04/09/19 1515:00 23:00 07:00 IntakeIntake Total 910 ml 670 ml OutputOutput Total 850 ml BalanceBalance 910 ml 670 ml -850 ml Exam Constitutional: alert, oriented Respiratory: other (Coarse breath sounds bilaterally, no wheezing) Cardiovascular: regular rate and rhythm (S1-S2 heard) Gastrointestinal: soft, non-tender, bowel sounds Extremities: edema Labs Result Diagram: 04/09/19 0551 04/09/19 0551 Results 24hrs Laboratory Tests Test 04/08/19 17:34 04/08/19 20:54 04/09/19 05:51 04/09/19 07:48 Bedside Glucose 141 156 108 White Blood Count 13.7 H Red Blood Count 3.15 L Hemoglobin 9.6 L Hematocrit 28.9 L Mean Corpuscular 91.7 Volume Mean Corpuscular 30.5 Hemoglobin Mean Corpuscular 33.2 Hemoglobin Concent Red Cell 16.3 H Distribution Width Platelet Count 231 Mean Platelet Volume 11.0 H Immature 0.700 H Granulocytes % Neutrophils % 91.8 H Lymphocytes % 1.8 L Monocytes % 5.6 Eosinophils % 0.0 Basophils % 0.1 Nucleated Red Blood 0.1 H Cells % Immature 0.100 H Granulocytes # Neutrophils # 12.6 H Lymphocytes # 0.2 L Monocytes # 0.8 Eosinophils # 0.0 Basophils # 0.0 Nucleated Red Blood 0.0 Cells # Sodium Level 129 L Potassium Level 5.0 Chloride Level 93 L Carbon Dioxide Level 26 Anion Gap 10 Blood Urea Nitrogen 71 H Creatinine 4.77 H Est Glomerular 12 L Filtrat Rate mL/min Glucose Level 111 Calcium Level 7.5 L Phosphorus Level 5.4 H Hepatitis B Surface NEGATIVE Antibody Test 04/09/19 11:19 Bedside Glucose 170 Medications Medications Current Medications Aspirin (Aspirin) 325 mg DAILY PO Last administered on 04/09/19at 08:26; Admin Dose 325 MG; Start 03/24/19 at 09:00 Atorvastatin Calcium (Lipitor) 40 mg QHS PO Last administered on 04/08/19at 21:01; Admin Dose 40 MG; Start 03/23/19 at 21:00 Linagliptin (Tradjenta) 5 mg DAILY PO Last administered on 04/09/19at 08:25; Admin Dose 5 MG; Start 03/24/19 at 09:00 Ondansetron HCl (Zofran Inj) 4 mg Q4H PRN IV NAUSEA AND/OR VOMITING Last administered on 04/05/19at 06:29; Admin Dose 4 MG; Start 03/23/19 at 18:00 Hydromorphone HCl (Dilaudid) 2 mg Q4H PRN IV SEVERE PAIN LEVEL 7-10 Last administered on 04/09/19at 12:48; Admin Dose 2 MG; Start 03/23/19 at 18:00 Miscellaneous Information 1 ea NOTE XX ; Start 03/23/19 at 18:30 Glucose (Glutose) 15 gm Q15M PRN PO DECREASED GLUCOSE; Start 03/23/19 at 18:30 Glucose (Glutose) 22.5 gm Q15M PRN PO DECREASED GLUCOSE; Start 03/23/19 at 18:30 Dextrose (D50w Syringe) 25 ml Q15M PRN IV DECREASED GLUCOSE; Start 03/23/19 at 18:30 Dextrose (D50w Syringe) 50 ml Q15M PRN IV DECREASED GLUCOSE; Start 03/23/19 at 18:30 Glucagon (Glucagen) 1 mg Q15M PRN IM DECREASED GLUCOSE; Start 03/23/19 at 18:30 Glucose (Glutose) 15 gm Q15M PRN BUCCAL DECREASED GLUCOSE; Start 03/23/19 at 18:30 Epoetin Joseph-epbx (Retacrit (Esrd)) 10,000 unit TuThSa@1700 SC Last administered on 04/07/19 17:12; Admin Dose 10,000 UNIT; Start 03/24/19 at 17:00 Acetaminophen/ Hydrocodone Bitart ([place] (5/325)) 1 tab Q6H PRN PO .MOD PAIN 4- 6 Last administered on 04/09/19 11:59; Admin Dose 1 TAB; Start 03/24/19 at 22:30 Albumin Human 100 ml @ 100 mls/hr WITH DIALYSIS PRN IV SBP <90 DURING DIALYSIS Last administered on 04/09/19 13:05; Admin Dose 100 MLS/HR; Start 03/27/19 at 12:00 Albuterol/ Ipratropium (Duoneb) 3 ml Q4HWA RESP THERAPY HHN Last administered on 04/09/19 08:12; Admin Dose 3 ML; Start 03/27/19 at 21:00 Magnesium Hydroxide (Milk Of Mag) 30 ml DAILY PRN PO CONSTIPATION Last administered on 03/28/19 20:48; Admin Dose 30 ML; Start 03/28/19 at 15:30 Heparin Sodium (Porcine) (Heparin (5000 Units/1ml)) 5,000 unit BID SC Last administered on 04/09/19 08:38; Admin Dose 5,000 UNIT; Start 03/29/19 at 21:00 Metoclopramide HCl (Reglan) 5 mg Q6 IV Last administered on 04/09/19 06:06; Admin Dose 5 MG; Start 03/29/19 at 18:00 Diagnostic Test (Pha) (Accu-Chek) 1 ea 02 XX Last administered on 04/08/19 02:13; Admin Dose 1 EA; Start 04/01/19 at 02:00 Insulin Aspart (Novolog Insulin Pen) NOVOLOG *MODERATE* ALGORITHM WITH MEALS BEDTIME SC Last administered on 04/08/19 17:51; Admin Dose 2 UNIT; Start 03/31/19 at 21:00 Metoclopramide HCl (Reglan) 5 mg Q6H PRN IV NAUSEA; Start 04/01/19 at 09:35 Chlorpromazine (Thorazine) 25 mg BID PRN PO hiccups; Start 04/01/19 at 20:00 Docusate Sodium/ Ferrous Fumarate (Angela-Sequels) 1 tab DAILY PO Last administered on 04/09/19 08:25; Admin Dose 1 TAB; Start 04/02/19 at 12:30; Stop 05/02/19 at 12:29 Carvedilol (Coreg) 18.75 mg BID PO Last administered on 04/09/19 08:26; Admin Dose 18.75 MG; Start 04/05/19 at 09:00 Alfuzosin HCl (Uroxatral) 10 mg HS PO Last administered on 04/08/19 20:59; Admin Dose 10 MG; Start 04/05/19 at 21:00 Losartan Potassium (Cozaar) 25 mg QHS PO Last administered on 04/08/19 21:36; Admin Dose 25 MG; Start 04/05/19 at 21:00 Zolpidem Tartrate (Ambien) 5 mg HS PRN PO INSOMNIA Last administered on 04/09/19 02:39; Admin Dose 5 MG; Start 04/05/19 at 21:30 Insulin Glargine (Lantus) 5 units DAILY@2000 SC Last administered on 04/08/19 20:57; Admin Dose 5 UNITS; Start 04/06/19 at 20:00 Fluconazole (Diflucan) 100 mg DAILY PO Last administered on 04/09/19 08:26; Admin Dose 100 MG; Start 04/06/19 at 20:30; Stop 04/09/19 at 20:29 Nystatin (Nystatin Susp) 5 ml Q8 PO Last administered on 04/09/19 06:06; Admin Dose 5 ML; Start 04/06/19 at 22:00; Stop 04/13/19 at 21:59 Calcium Acetate (Phoslo) 667 mg WITH MEALS PO Last administered on 04/09/19 08:24; Admin Dose 667 MG; Start 04/07/19 at 11:30 Multivit/Ca Carb/ B Cmplx/FA/Prenat (Gilda-Jennifer) 1 tab DAILY PO Last administered on 04/09/19 08:26; Admin Dose 1 TAB; Start 04/07/19 at 09:00 Heparin Sodium (Porcine) (Heparin (1000 Units/ml)) 4,500 unit AFTER DIALYSIS CATHETER Last administered on 04/09/19at 14:39; Admin Dose 4,500 UNIT; Start 04/07/19 at 16:00 Ranitidine HCl (Zantac) 150 mg QHS PO Last administered on 04/08/19at 21:01; Admin Dose 150 MG; Start 04/08/19 at 21:00 Methylprednisolone Sodium Succinate (Solu-Medrol) 30 mg DAILY IV ; Start 04/10/19 at 09:00 Insulin Human NPH (Humulin N) 2 unit DAILY SC ; Start 04/10/19 at 09:00 Michele Richard DO Apr 09, 2019 16:29
[2019-04-09] MEDS: EPOETIN ALFA-EPBX (ESRD) 10,000 UNIT/ML VIAL SC SCH (16:34)
--- NOTE | 2019-04-09 17:49 | PN ---
Date/Time of Note Date/Time of Note DATE: 04/09/19 TIME: 17:44 Assessment/Plan VTE Prophylaxis Risk score (from Ns)>0 risk: 6 SCD applied (from [facility] [place] No SCD contraindicated: bilateral LE trauma Pharmacological prophylaxis: heparin Lines/Catheters IV Catheter Type (from [facility] Saline [place] Urinary Cath still in place: No Assessment/Plan Problems: (1) Diabetes mellitus type 2 with complications Status: Chronic Comment: At this time he has adequate blood sugar control in a controlled environment with controlled medication regimen (2) End stage renal disease on dialysis due to type 2 diabetes mellitus Status: Chronic Comment: Continues with hemodialysis and has dialysis access now. Case management working on getting him set up for outpatient dialysis center (3) Type 2 diabetes mellitus with diabetic peripheral angiopathy with gangrene Status: Acute Comment: As post vascular bypass successfully. Qualifiers: Diabetes mellitus rn long term care insulin use: with rn long term care use Qualified Codes: E11.52 - Type 2 diabetes mellitus with diabetic peripheral angiopathy with gangrene; Z79.4 - skilled nursing (current) use of insulin (4) Status post transmetatarsal amputation of right foot Onset Date: ~ 04/06/2019 Status: Acute Comment: Postoperatively and doing well. (5) Hyperlipidemia Status: Chronic Comment: On full dose statin therapy Qualifiers: Hyperlipidemia type: pure hypercholesterolemia Qualified Codes: E78.00 - Pure hypercholesterolemia, unspecified (6) Benign prostatic hyperplasia with urinary obstruction Status: Chronic Comment: Noted. He is on alpha blockade using alfuzocin (7) Vitamin D deficiency Status: Chronic Comment: Being replaced (8) Essential (primary) hypertension Status: Chronic Comment: Still have room to work care. He is going to be on combination beta- blockade and angiotensin to receptor jillian therapy. Right now organ to bring the beta-blockade up to full dose and then in short order to bring up the angiotensin II receptor jillian therapy (9) Acute respiratory failure with hypoxia Status: Resolved Comment: Resolved Result Diagram: 04/09/19 0551 04/09/19 0551 Results 24hrs Laboratory Tests Test 04/08/19 20:54 04/09/19 05:51 04/09/19 07:48 04/09/19 11:19 Bedside Glucose 156 108 170 White Blood Count 13.7 H Red Blood Count 3.15 L Hemoglobin 9.6 L Hematocrit 28.9 L Mean Corpuscular 91.7 Volume Mean Corpuscular 30.5 Hemoglobin Mean Corpuscular 33.2 Hemoglobin Concent Red Cell 16.3 H Distribution Width Platelet Count 231 Mean Platelet Volume 11.0 H Immature 0.700 H Granulocytes % Neutrophils % 91.8 H Lymphocytes % 1.8 L Monocytes % 5.6 Eosinophils % 0.0 Basophils % 0.1 Nucleated Red Blood 0.1 H Cells % Immature 0.100 H Granulocytes # Neutrophils # 12.6 H Lymphocytes # 0.2 L Monocytes # 0.8 Eosinophils # 0.0 Basophils # 0.0 Nucleated Red Blood 0.0 Cells # Sodium Level 129 L Potassium Level 5.0 Chloride Level 93 L Carbon Dioxide Level 26 Anion Gap 10 Blood Urea Nitrogen 71 H Creatinine 4.77 H Est Glomerular 12 L Filtrat Rate mL/min Glucose Level 111 Calcium Level 7.5 L Phosphorus Level 5.4 H Hepatitis B Surface NEGATIVE Antibody Test 04/09/19 17:10 Bedside Glucose 142 CC: WALTER LOWERY MD; Michele Richard DO; LUDMILA ANTOINE M.D.; MICHELE PARRY MD; DOT ASHLEY MD ; Subjective 24 Hr Interval Summary Free Text/Dictation Patient reports that he is doing well. Constitutional: no complaints (No fevers chills or sweats) Respiratory: no complaints (Cough no wheezing no shortness of breath) Cardiovascular: no complaints (No chest pain no palpitations no PND no orthopnea) Gastrointestinal: no complaints Skin: no complaints Exam/Review of Systems Exam Vitals Vital Signs Date Temp Pulse Resp B/P (MAP) Pulse Ox O2 O2 Flow FiO2 Time Delivery Rate 04/09/19 68 16 99 Nasal 1.0 16:52 Cannula 04/09/19 97.9 173/83 15:14 (113) 04/05/19 35 08:01 Intake and Output 04/08/19 04/08/19 04/09/19 1515:00 23:00 07:00 IntakeIntake Total 910 ml 670 ml OutputOutput Total 850 ml BalanceBalance 910 ml 670 ml -850 ml Constitutional: alert, oriented Respiratory: clear to auscultation, normal air movement Cardiovascular: regular rate and rhythm, nl pulses Gastrointestinal: soft, nl liver, spleen, non-tender Results Results 24hrs Laboratory Tests Test 04/08/19 20:54 04/09/19 05:51 04/09/19 07:48 04/09/19 11:19 Bedside Glucose 156 108 170 White Blood Count 13.7 H Red Blood Count 3.15 L Hemoglobin 9.6 L Hematocrit 28.9 L Mean Corpuscular 91.7 Volume Mean Corpuscular 30.5 Hemoglobin Mean Corpuscular 33.2 Hemoglobin Concent Red Cell 16.3 H Distribution Width Platelet Count 231 Mean Platelet Volume 11.0 H Immature 0.700 H Granulocytes % Neutrophils % 91.8 H Lymphocytes % 1.8 L Monocytes % 5.6 Eosinophils % 0.0 Basophils % 0.1 Nucleated Red Blood 0.1 H Cells % Immature 0.100 H Granulocytes # Neutrophils # 12.6 H Lymphocytes # 0.2 L Monocytes # 0.8 Eosinophils # 0.0 Basophils # 0.0 Nucleated Red Blood 0.0 Cells # Sodium Level 129 L Potassium Level 5.0 Chloride Level 93 L Carbon Dioxide Level 26 Anion Gap 10 Blood Urea Nitrogen 71 H Creatinine 4.77 H Est Glomerular 12 L Filtrat Rate mL/min Glucose Level 111 Calcium Level 7.5 L Phosphorus Level 5.4 H Hepatitis B Surface NEGATIVE Antibody Test 04/09/19 17:10 Bedside Glucose 142 Medications Medication Current Medications Atorvastatin Calcium (Lipitor) 40 mg QHS PO Last administered on 04/08/19at 21:01; Admin Dose 40 MG; Start 03/23/19 at 21:00 Linagliptin (Tradjenta) 5 mg DAILY PO Last administered on 04/09/19at 08:25; Admin Dose 5 MG; Start 03/24/19 at 09:00 Ondansetron HCl (Zofran Inj) 4 mg Q4H PRN IV NAUSEA AND/OR VOMITING Last administered on 04/05/19at 06:29; Admin Dose 4 MG; Start 03/23/19 at 18:00 Hydromorphone HCl (Dilaudid) 2 mg Q4H PRN IV SEVERE PAIN LEVEL 7-10 Last administered on 04/09/19at 12:48; Admin Dose 2 MG; Start 03/23/19 at 18:00 Miscellaneous Information 1 ea NOTE XX ; Start 03/23/19 at 18:30 Glucose (Glutose) 15 gm Q15M PRN PO DECREASED GLUCOSE; Start 03/23/19 at 18:30 Glucose (Glutose) 22.5 gm Q15M PRN PO DECREASED GLUCOSE; Start 03/23/19 at 18:30 Dextrose (D50w Syringe) 25 ml Q15M PRN IV DECREASED GLUCOSE; Start 03/23/19 at 18:30 Dextrose (D50w Syringe) 50 ml Q15M PRN IV DECREASED GLUCOSE; Start 03/23/19 at 18:30 Glucagon (Glucagen) 1 mg Q15M PRN IM DECREASED GLUCOSE; Start 03/23/19 at 18:30 Glucose (Glutose) 15 gm Q15M PRN BUCCAL DECREASED GLUCOSE; Start 03/23/19 at 1 8:30 Epoetin Joseph-epbx (Retacrit (Esrd)) 10,000 unit TuThSa@1700 SC Last administered on 04/09/19 16:34; Admin Dose 10,000 UNIT; Start 03/24/19 at 17:00 Acetaminophen/ Hydrocodone Bitart ([place] (5/325)) 1 tab Q6H PRN PO .MOD PAIN 4- 6 Last administered on 04/09/19 11:59; Admin Dose 1 TAB; Start 03/24/19 at 22:30 Albumin Human 100 ml @ 100 mls/hr WITH DIALYSIS PRN IV SBP <90 DURING DIALYSIS Last administered on 04/09/19 13:05; Admin Dose 100 MLS/HR; Start 03/27/19 at 12:00 Albuterol/ Ipratropium (Duoneb) 3 ml Q4HWA RESP THERAPY HHN Last administered on 04/09/19 16:46; Admin Dose 3 ML; Start 03/27/19 at 21:00 Magnesium Hydroxide (Milk Of Mag) 30 ml DAILY PRN PO CONSTIPATION Last admini stered on 03/28/19 20:48; Admin Dose 30 ML; Start 03/28/19 at 15:30 Heparin Sodium (Porcine) (Heparin (5000 Units/1ml)) 5,000 unit BID SC Last administered on 04/09/19 08:38; Admin Dose 5,000 UNIT; Start 03/29/19 at 21:00 Metoclopramide HCl (Reglan) 5 mg Q6 IV Last administered on 04/09/19 17:11; Admin Dose 5 MG; Start 03/29/19 at 18:00 Diagnostic Test (Pha) (Accu-Chek) 1 ea 02 XX Last administered on 04/08/19 02:13; Admin Dose 1 EA; Start 04/01/19 at 02:00 Insulin Aspart (Novolog Insulin Pen) NOVOLOG *MODERATE* ALGORITHM WITH MEALS BEDTIME SC Last administered on 04/08/19 17:51; Admin Dose 2 UNIT; Start 03/31/19 at 21:00 Metoclopramide HCl (Reglan) 5 mg Q6H PRN IV NAUSEA; Start 04/01/19 at 09:35 Docusate Sodium/ Ferrous Fumarate (Angela-Sequels) 1 tab DAILY PO Last administered on 04/09/19 08:25; Admin Dose 1 TAB; Start 04/02/19 at 12:30; Stop 05/02/19 at 12:29 Carvedilol (Coreg) 18.75 mg BID PO Last administered on 04/09/19 08:26; Admin Dose 18.75 MG; Start 04/05/19 at 09:00 Alfuzosin HCl (Uroxatral) 10 mg HS PO Last administered on 04/08/19 20:59; Admin Dose 10 MG; Start 04/05/19 at 21:00 Zolpidem Tartrate (Ambien) 5 mg HS PRN PO INSOMNIA Last administered on 02:39; Admin Dose 5 MG; Start 04/05/19 at 21:30 Insulin Glargine (Lantus) 5 units DAILY@2000 SC Last administered on 04/08/19 20:57; Admin Dose 5 UNITS; Start 04/06/19 at 20:00 Fluconazole (Diflucan) 100 mg DAILY PO Last administered on 04/09/19 08:26; Admin Dose 100 MG; Start 04/06/19 at 20:30; Stop 04/09/19 at 20:29 Nystatin (Nystatin Susp) 5 ml Q8 PO Last administered on 04/09/19 06:06; Admin Dose 5 ML; Start 04/06/19 at 22:00; Stop 04/13/19 at 21:59 Calcium Acetate (Phoslo) 667 mg WITH MEALS PO Last administered on 04/09/19 08:24; Admin Dose 667 MG; Start 04/07/19 at 11:30 Multivit/Ca Carb/ B Cmplx/FA/Prenat (Gilda-Jennifer) 1 tab DAILY PO Last administered on 04/09/19at 08:26; Admin Dose 1 TAB; Start 04/07/19 at 09:00 Heparin Sodium (Porcine) (Heparin (1000 Units/ml)) 4,500 unit AFTER DIALYSIS CATHETER Last administered on 04/09/19at 14:39; Admin Dose 4,500 UNIT; Start 04/07/19 at 16:00 Ranitidine HCl (Zantac) 150 mg QHS PO Last administered on 04/08/19at 21:01; Admin Dose 150 MG; Start 04/08/19 at 21:00 Methylprednisolone Sodium Succinate (Solu-Medrol) 30 mg DAILY IV ; Start 04/10/19 at 09:00 Insulin Human NPH (Humulin N) 2 unit DAILY SC ; Start 04/10/19 at 09:00 Losartan Potassium (Cozaar) 25 mg BID PO ; Start 04/09/19 at 21:00 KYLEE POE MD Apr 09, 2019 17:49
[2019-04-09] MEDS ORDERED: POLYMYXIN/BACITRACIN 1L IRRIG ONE (18:31)
--- NOTE | 2019-04-09 18:40 | PREAC ---
Date/Time of Note Date/Time of Note DATE: 04/09/19 TIME: 18:37 Anesthesia Eval and Record Evaluation Time Pre-Procedure Interview DATE: 04/09/19 TIME: 18:37 Age 68 Sex male NPO: 8 hrs Preoperative diagnosis , PVDright foot osteomyelitis Planned procedure right foot revisionof amputation with closure of wound Past Medical History Past Medical History: Includes Cardio: HTN, Other (PVD) Endo: Diabetes, Hypothyroid Renal: ESRD on dialysis (today), BPH Heme: Anemia Surgery & Anesthesia Issues No known issue Meds Anticoagulation: No Beta Sweta within 24 hr: Yes Active Scripts Amoxicillin/Potassium Clav (Amox-Clav 875-125 mg Tablet) 875-125 mg Tab, 1 TAB PO BID for 5 Days, #10 TAB 0 Refills Prov:JOSE PARRY MD 03/18/19 Linagliptin (TRADJENTA) 5 Mg Tablet, 5 MG PO DAILY for 30 Days, #30 TAB 3 Refills Prov:JOSE PARRY MD 03/18/19 Hydrocodone Bit-Acetaminophen (Hydrocodone Bit-APAP) 5-325MG Tablet, 1 TAB PO Q6H PRN for .MOD PAIN 4-6 for 5 Days, #20 TAB 0 Refills Prov:JOSE PARRY MD 03/18/19 Ferrous Sulfate* (Ferrous Sulfate*) 325 Mg Tabec, 325 MG PO TID for 30 Days, #90 TAB 2 Refills Prov:JOSE PARRY MD 03/18/19 Ranitidine Hcl* (Ranitidine Hcl*) 150 Mg Tablet, 150 MG PO DAILY for 30 Days, #30 TAB 5 Refills Prov:JOSE PARRY MD 02/02/19 Metoclopramide Hcl* (Metoclopramide Hcl*) 5 Mg Tablet, 5 MG PO AC MEALS for 30 Days, #90 TAB 5 Refills Prov:JOSE PARRY MD 02/02/19 Carvedilol* (Carvedilol*) 12.5 Mg Tablet, 12.5 MG PO BID for 30 Days, #60 TAB 5 Refills Prov:JOSE PARRY MD 02/02/19 Cilostazol* (Cilostazol*) 100 Mg Tablet, 50 MG PO BID for 30 Days, #30 TAB 5 Refills Prov:JOSE PARRY MD 02/02/19 Reported Medications Glycopyrrolate* (Glycopyrrolate*) 1 Mg Tablet, 1 MG PO BID, TAB 01/29/19 Amlodipine Besylate* (Norvasc*) 5 Mg Tablet, 5 MG PO DAILY, TAB 01/29/19 Ergocalciferol (Vitamin D2) (VITAMIN D2) 50,000 Unit Capsule, 56628 UNIT PO Q FRI, CAP 01/29/19 Atorvastatin* (Atorvastatin*) 40 Mg Tablet, 40 MG PO QHS, #30 TAB 01/29/19 Current Medications Atorvastatin Calcium (Lipitor) 40 mg QHS PO Last administered on 04/08/19at 21:01; Admin Dose 40 MG; Start 03/23/19 at 21:00 Linagliptin (Tradjenta) 5 mg DAILY PO Last administered on 04/09/19at 08:25; Admin Dose 5 MG; Start 03/24/19 at 09:00 Ondansetron HCl (Zofran Inj) 4 mg Q4H PRN IV NAUSEA AND/OR VOMITING Last administered on 04/05/19at 06:29; Admin Dose 4 MG; Start 03/23/19 at 18:00 Hydromorphone HCl (Dilaudid) 2 mg Q4H PRN IV SEVERE PAIN LEVEL 7-10 Last administered on 04/09/19at 12:48; Admin Dose 2 MG; Start 03/23/19 at 18:00 Miscellaneous Information 1 ea NOTE XX ; Start 03/23/19 at 18:30 Glucose (Glutose) 15 gm Q15M PRN PO DECREASED GLUCOSE; Start 03/23/19 at 18:30 Glucose (Glutose) 22.5 gm Q15M PRN PO DECREASED GLUCOSE; Start 03/23/19 at 18:30 Dextrose (D50w Syringe) 25 ml Q15M PRN IV DECREASED GLUCOSE; Start 03/23/19 at 18:30 Dextrose (D50w Syringe) 50 ml Q15M PRN IV DECREASED GLUCOSE; Start 03/23/19 at 18:30 Glucagon (Glucagen) 1 mg Q15M PRN IM DECREASED GLUCOSE; Start 03/23/19 at 18:30 Glucose (Glutose) 15 gm Q15M PRN BUCCAL DECREASED GLUCOSE; Start 03/23/19 at 18:30 Epoetin Joseph-epbx (Retacrit (Esrd)) 10,000 unit TuThSa@1700 SC Last administered on 04/09/19 16:34; Admin Dose 10,000 UNIT; Start 03/24/19 at 17:00 Acetaminophen/ Hydrocodone Bitart ([place] (5/325)) 1 tab Q6H PRN PO .MOD PAIN 4- 6 Last administered on 04/09/19 11:59; Admin Dose 1 TAB; Start 03/24/19 at 22:30 Albumin Human 100 ml @ 100 mls/hr WITH DIALYSIS PRN IV SBP <90 DURING DIALYSIS Last administered on 04/09/19 13:05; Admin Dose 100 MLS/HR; Start 03/27/19 at 12:00 Albuterol/ Ipratropium (Duoneb) 3 ml Q4HWA RESP THERAPY HHN Last administered on 04/09/19 16:46; Admin Dose 3 ML; Start 03/27/19 at 21:00 Magnesium Hydroxide (Milk Of Mag) 30 ml DAILY PRN PO CONSTIPATION Last administered on 03/28/19 20:48; Admin Dose 30 ML; Start 03/28/19 at 15:30 Heparin Sodium (Porcine) (Heparin (5000 Units/1ml)) 5,000 unit BID SC Last administered on 04/09/19 08:38; Admin Dose 5,000 UNIT; Start 03/29/19 at 21:00 Metoclopramide HCl (Reglan) 5 mg Q6 IV Last administered on 04/09/19 17:11; Admin Dose 5 MG; Start 03/29/19 at 18:00 Diagnostic Test (Pha) (Accu-Chek) 1 ea 02 XX Last administered on 04/08/19 02:13; Admin Dose 1 EA; Start 04/01/19 at 02:00 Insulin Aspart (Novolog Insulin Pen) NOVOLOG *MODERATE* ALGORITHM WITH MEALS BEDTIME SC Last administered on 04/08/19 17:51; Admin Dose 2 UNIT; Start 03/31/19 at 21:00 Metoclopramide HCl (Reglan) 5 mg Q6H PRN IV NAUSEA; Start 04/01/19 at 09:35 Docusate Sodium/ Ferrous Fumarate (Angela-Sequels) 1 tab DAILY PO Last administered on 04/09/19 08:25; Admin Dose 1 TAB; Start 04/02/19 at 12:30; Stop 05/02/19 at 12:29 Alfuzosin HCl (Uroxatral) 10 mg HS PO Last administered on 04/08/19 20:59; Admin Dose 10 MG; Start 04/05/19 at 21:00 Zolpidem Tartrate (Ambien) 5 mg HS PRN PO INSOMNIA Last administered on 04/09/19 02:39; Admin Dose 5 MG; Start 04/05/19 at 21:30 Insulin Glargine (Lantus) 5 units DAILY@2000 SC Last administered on 04/08/19 20:57; Admin Dose 5 UNITS; Start 04/06/19 at 20:00 Fluconazole (Diflucan) 100 mg DAILY PO Last administered on 04/09/19 08:26; Admin Dose 100 MG; Start 04/06/19 at 20:30; Stop 04/09/19 at 20:29 Nystatin (Nystatin Susp) 5 ml Q8 PO Last administered on 04/09/19 06:06; Admin Dose 5 ML; Start 04/06/19 at 22:00; Stop 04/13/19 at 21:59 Calcium Acetate (Phoslo) 667 mg WITH MEALS PO Last administered on 04/09/19 08:24; Admin Dose 667 MG; Start 04/07/19 at 11:30 Multivit/Ca Carb/ B Cmplx/FA/Prenat (Gilda-Jennifer) 1 tab DAILY PO Last administered on 04/09/19 08:26; Admin Dose 1 TAB; Start 04/07/19 at 09:00 Heparin Sodium (Porcine) (Heparin (1000 Units/ml)) 4,500 unit AFTER DIALYSIS CATHETER Last administered on 04/09/19 14:39; Admin Dose 4,500 UNIT; Start 04/07/19 at 16:00 Ranitidine HCl (Zantac) 150 mg QHS PO Last administered on 04/08/19 21:01; Admin Dose 150 MG; Start 04/08/19 at 21:00 Losartan Potassium (Cozaar) 25 mg BID PO ; Start 04/09/19 at 21:00 Aspirin (Aspirin) 81 mg DAILY PO ; Start 04/10/19 at 09:00 Carvedilol (Coreg) 25 mg BID PO ; Start 04/09/19 at 21:00 Meds reviewed: Yes Allergies Coded Allergies: No Known Allergy (Unverified , 04/04/19) Allergies Reviewed: Yes Labs/Studies Labs Reviewed: Reviewed by anesthesiologist Result Diagram: 04/09/19 0551 04/09/19 0551 Laboratory Tests 04/09/19 05:51 test: N/A Studies: ECG (sr), CXR (hyperextended lung) Pre-procedure Exam Last vitals Vital Signs Date Temp Pulse Resp B/P (MAP) Pulse Ox O2 O2 Flow FiO2 Time Delivery Rate 04/09/19 68 16 99 Nasal 1.0 16:52 Cannula 04/09/19 97.9 173/83 15:14 (113) 04/05/19 35 08:01 Airway: Adequate mouth opening Mallampati: Mallampati I Teeth: Normal Lung: Normal Heart: Normal ASA Physical Status ASA physical status: 3 Emergency: None Planned Anesthetic General/MAC: TIVA Nerve block: Sciatic (right) Planned Pain Management Single shot nerve block, Parenteral pain med Pre-operative Attestations Prior to commencing anesthesia and surgery, the patient was re-evaluated, there was verification of: *The patient's identity *The results of appropriate recent lab work and preoperative vital signs *The above evaluation not changing prior to induction *Anesthetic plan, risk benefits, alternative and complications discussed with patient/family; questions answered; patient/family understands, accepts and wishes to proceed. FRANTZ MATA MD Apr 09, 2019 18:40
--- NOTE | 2019-04-09 18:44 | HPN ---
Date/Time of Note Date/Time of Note DATE: 04/09/19 TIME: 18:44 Interval H&P Admission Note Pt. seen H&P reviewed: No system changes CJ DODD DPM Apr 09, 2019 18:44
--- NOTE | 2019-04-09 18:44 | PN ---
Date/Time of Note Date/Time of Note DATE: 04/09/19 TIME: 18:44 Assessment/Plan Lines/Catheters IV [facility] Type (from [facility] Sal[place] in Place (from Nrs): No Assessment/Plan Chief Complaint/Hosp Course Wound VAC will be changed and reapplied every 48 hours. I will reevaluate the flap of skin for primary closure. Closure will be scheduled. Problems: (1) Acquired absence of left great toe Status: Chronic (2) Personal history of nicotine dependence Status: Chronic (3) Alcohol abuse, in remission Status: Chronic (4) Essential (primary) hypertension Status: Chronic (5) Peripheral vascular disease of lower extremity Status: Chronic (6) Type 2 diabetes mellitus with diabetic peripheral angiopathy without gangrene Status: Chronic (7) Hyperlipidemia Status: Chronic Qualifiers: Hyperlipidemia type: pure hypercholesterolemia Qualified Codes: E78.00 - Pure hypercholesterolemia, unspecified (8) Benign prostatic hyperplasia with urinary obstruction Status: Chronic (9) 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 Qualifiers: 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: with fdc use Qualified Cod es: E11.21 - Type 2 diabetes mellitus with diabetic nephropathy; Z79.4 - shelter (current) use of insulin (10) Type 2 diabetes mellitus with diabetic chronic kidney disease Status: Chronic (11) Vitamin D deficiency Status: Chronic (12) Anemia Status: Chronic Qualifiers: Anemia type: due to chronic kidney disease (13) Diabetes mellitus type 2 with complications Status: Chronic (14) End stage renal disease on dialysis due to type 2 diabetes mellitus Status: Chronic (15) Status post transmetatarsal amputation of right foot Onset Date: ~ 04/06/2019 Status: Chronic Subjective 24 Hr Interval Summary Postop day 1 status post transmetatarsal rotation of the right foot. Doing well and reports no fever, chills, nausea or vomiting. Patient has a wound VAC to the right foot. Constitutional: no complaints Pain Control: well controlled Exam/Review of Systems Vital Signs Vitals Exam Free Text/Dictation Patient is laying supine in bed in no acute distress. Wound VAC was removed from the right foot because it was clogged. The plantar flap of skin is viable. There is minimum bleeding noted. Mild tenderness to palpation. No erythema present. Right foot edema present. Labs reviewed. Imaging reviewed. CJ DODD DPM Apr 09, 2019 18:44
[2019-04-09] MEDS ORDERED: PROPOFOL 20 ML ONE (18:45)
[2019-04-09] MEDS ORDERED: MIDAZOLAM 1 MG/ML 2 ML INJ ONE (18:45)
[2019-04-09] MEDS ORDERED: FENTAnyl 50 MCG/ML VIAL ONE (18:45)
[2019-04-09] MEDS ORDERED: ROPIVACAINE 0.2% 20 ML VIAL ONE (18:45)
[2019-04-09] MEDS ORDERED: GLYCOPYRROLATE 0.4 MG INJ ONE (18:57)
[2019-04-09] MEDS ORDERED: LIDOCAINE 2% (SDV) 5 ML INJ ONE (18:58)
[2019-04-09] MEDS ORDERED: ONDANSETRON 4 MG INJ IV PRN (19:00)
[2019-04-09] MEDS ORDERED: DIPHENHYDRAMINE 50 MG INJ IV PRN (19:00)
[2019-04-09] MEDS ORDERED: MEPERIDINE 25 MG INJ IV PRN (19:00)
[2019-04-09] MEDS ORDERED: HYDROmorphONE 1 MG/5 ML IV SYRINGE IV PRN ×3 (19:00)
[2019-04-09] MEDS ORDERED: FENTAnyl 50 MCG/ML VIAL IV PRN ×3 (19:00)
[2019-04-09] MEDS ORDERED: CEFAZOLIN 1 GM INJ ONE (19:05)
--- NOTE | 2019-04-09 19:58 | SIPON ---
Date/Time of Note Date/Time of Note DATE: 04/09/19 TIME: 19:57 Operative Report Preoperative Diagnosis S/P open transmetatarsal amputation of the right foot with wound VAC application Peripheral vascular disease Diabetes mellitus Postoperative Diagnosis S/P open transmetatarsal amputation of the right foot with wound VAC application Peripheral vascular disease Diabetes mellitus Operation/Procedure Performed Revision transmetatarsal amputation of the right foot Surgeon see signature line billing and accounting staff assistant None Anesthesia: general Estimated blood loss: 0 - 10 ml's Transfusion Required none Specimen Skin from the right foot Grafts/Implants none Complications none CJ DODD DPM Apr 09, 2019 19:58
--- NOTE | 2019-04-09 19:59 | OPR ---
Date/Time of Note Date/Time of Note DATE: 04/09/19 TIME: 19:59 Operative Report Procedure Date: Apr 09, 2019 Preoperative Diagnosis s/p TMA of the right foot Application of wound vac to the right foot Peripheral vascular disease Peripheral neuropathy s/p recent right lower extremity arterial bypass surgery Diabetes mellitus Postoperative Diagnosis s/p TMA of the right foot Application of wound vac to the right foot Peripheral vascular disease Peripheral neuropathy s/p recent right lower extremity arterial bypass surgery Diabetes mellitus Operation/Procedure Performed Revision transmetatarsal amputation of the right foot Removal of wound VAC Primary closure of the right foot TMA site Application of posterior splint to the right lower extremity Surgeon see signature line Medical Payment Poster None Anesthesia Type: general Estimated Blood Loss: minimal Transfusion none Specimen Bone and skin from the right foot. Grafts/Implants none Complications none Pt Condition Post Procedure: stable Disposition: PACU Indications This is a pleasant 68 year old male patient who has recently undergone RIGHT lower extremity arterial bypass surgery by Dr. Cullen Monaco and has had a recent open transmetatarsal amputation of his RIGHT foot with application of wound VAC and he is being brought back to the operating room to remove the wound VAC and revise and close the transmetatarsal amputation site. Risks and complications of this type of surgery was discussed with patient in great detail. Risks and complications discussed include, but are not limited to, postoperative infection, postoperative pain, chronic pain and disability, hardware failure, malunion, nonunion, delayed union, dehiscence, failure of surgery to correct the problem, need for additional surgical procedures, deep venous thrombosis, gait disturbance, problems with shoegear, limitation of activities, limb loss and loss of life. Patient understands the discussion and agrees to the procedure. An informed consent was obtained, signed and placed in the chart. No guarantee or warrantee was given or implied as to the outcome of the procedure either in verbal or written form. Procedure Description The patient was seen in the preoperative unit. The proposed surgery was discussed with patient in great detail. Risks and complications of this type of surgery was discussed with patient in great detail. Opportunity was given to patient to ask questions and all questions were answered. The patient acknowledges understanding of the discussion. An informed consent was then obtained, signed and placed in the chart. Patient was taken to the operating room and was placed on the operating table in the supine position. All bony prominences were padded properly. A timeout was called by the circulating nurse. Everyone in the operating room was agreeable to the timeout. The patient was then placed under general anesthesia by the anesthesiologist. The right lower extremity was scrubbed, prepped, and draped in the usual aseptic manner. Procedure: revision transmetatarsal amputation with closure of TMA site The wound VAC was previously removed prior to sterile prep. Attention was directed to the right foot TMA site. There was a large hematoma present in the center of the TMA site which was easily debrided and removed to the back table. A sharp curette was used to debride the tissue to bleeding tissue. Necrotic tendon and ligamentous tissue was sharply debrided. The metatarsals were then debrided using a double action bone cutter and hand rasp. The plantar skin flap was carefully examined and there was some necrosis at the edge. This necrotic section of the skin flap was sharply excised using a sharp #10 blade. Next, the wound was flushed with copious amounts of sterile normal saline. Next, the plantar skin flap was brought over the TMA site and sutured using 3-0 Vicryl suture. Next, the skin was reapproximated using 0-Prolene suture in simple suture technique, without tension on the flap and without bony prominence at the TMA site. Post operative injection was given using 10cc of 0.5% Marcaine plain as an ankle block. Sterile dressing was applied to the right foot. The patient tolerated procedure and anesthesia well. The patient was transferred to the recovery room with vital signs stable and vascular status intact to right lower extremity. The patient will be sent back to the floor after postoperative monitoring. Postoperative orders were written. Patient will be followed up inhouse. CJ DODD DPM Apr 09, 2019 19:59
[2019-04-09] MEDS: INSULIN GLARGINE [LANTus] (100 UNITS/ML) SYG SC SCH (20:00)
--- NOTE | 2019-04-09 20:21 | CONS ---
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 - s/p revision R TMA surgery 04/09/2019 - s/p R TMA with wound VAC placement 04/06/19 - PVD of RLE - h/o percutaneous intervention of RLE in the past - h/o occluded R popliteal artery in doppler in 01/2019 - s/p R SFA to posterior tibial bypass using in situ greater saphenous vein from R thigh and calf on 03/23/2019 - Pt completed meropenem (03/29/2019-04/04/2019), pip/tazo (03/25/19-03/28/19) and IV vancomycin (03/25/19-03/30/19) # other conditions - thrush noted 04/06/19 - DM - Hgb A1c 5.7% - former smoker - constipation recommendations: - complete PO fluconazole x 3 days (04/06/2019-04/09/2019) and nystatin swish and spit x 7 days (04/06/19-04/13/2019) - Pt completed steroid; will monitor WBC level Management d/w patient's family members Consultation Date/Type/Reason Admit Date/Time Mar 23, 2019 at 06:13 Initial Consult Date 03/28/19 Type of Consult ID Requesting Provider: JOSE PARRY MD Date/Time of Note DATE: 04/09/19 TIME: 20:19 24 HR Interval Summary Free Text/Dictation Pt was taken to OR for revision of R foot surgery Exam/Review of Systems Exam Vitals Vital Signs Date Temp Pulse Resp B/P (MAP) Pulse Ox O2 O2 Flow FiO2 Time Delivery Rate 04/09/19 Nasal 2.0 19:59 Cannula 04/09/19 98.2 19:46 04/09/19 68 16 99 16:52 04/09/19 173/83 15:14 (113) 04/05/19 35 08:01 Intake and Output 04/08/19 04/08/19 04/09/19 1515:00 23:00 07:00 IntakeIntake Total 910 ml 670 ml OutputOutput Total 850 ml BalanceBalance 910 ml 670 ml -850 ml Results Result Diagram: 04/09/19 0551 04/09/19 0551 Results 24hrs Laboratory Tests Test 04/08/19 20:54 04/09/19 05:51 04/09/19 07:48 04/09/19 11:19 Bedside Glucose 156 108 170 White Blood Count 13.7 H Red Blood Count 3.15 L Hemoglobin 9.6 L Hematocrit 28.9 L Mean Corpuscular 91.7 Volume Mean Corpuscular 30.5 Hemoglobin Mean Corpuscular 33.2 Hemoglobin Concent Red Cell 16.3 H Distribution Width Platelet Count 231 Mean Platelet Volume 11.0 H Immature 0.700 H Granulocytes % Neutrophils % 91.8 H Lymphocytes % 1.8 L Monocytes % 5.6 Eosinophils % 0.0 Basophils % 0.1 Nucleated Red Blood 0.1 H Cells % Immature 0.100 H Granulocytes # Neutrophils # 12.6 H Lymphocytes # 0.2 L Monocytes # 0.8 Eosinophils # 0.0 Basophils # 0.0 Nucleated Red Blood 0.0 Cells # Sodium Level 129 L Potassium Level 5.0 Chloride Level 93 L Carbon Dioxide Level 26 Anion Gap 10 Blood Urea Nitrogen 71 H Creatinine 4.77 H Est Glomerular 12 L Filtrat Rate mL/min Glucose Level 111 Calcium Level 7.5 L Phosphorus Level 5.4 H Hepatitis B Surface NEGATIVE Antibody Test 04/09/19 17:10 Bedside Glucose 142 Medications Medication Current Medications Atorvastatin Calcium (Lipitor) 40 mg QHS PO Last administered on 04/08/19at 21:01; Admin Dose 40 MG; Start 03/23/19 at 21:00 Linagliptin (Tradjenta) 5 mg DAILY PO Last administered on 04/09/19at 08:25; Admin Dose 5 MG; Start 03/24/19 at 09:00 Ondansetron HCl (Zofran Inj) 4 mg Q4H PRN IV NAUSEA AND/OR VOMITING Last administered on 04/05/19at 06:29; Admin Dose 4 MG; Start 03/23/19 at 18:00 Hydromorphone HCl (Dilaudid) 2 mg Q4H PRN IV SEVERE PAIN LEVEL 7-10 Last administered on 04/09/19 12:48; Admin Dose 2 MG; Start 03/23/19 at 18:00 Miscellaneous Information 1 ea NOTE XX ; Start 03/23/19 at 18:30 Glucose (Glutose) 15 gm Q15M PRN PO DECREASED GLUCOSE; Start 03/23/19 at 18:30 Glucose (Glutose) 22.5 gm Q15M PRN PO DECREASED GLUCOSE; Start 03/23/19 at 18:30 Dextrose (D50w Syringe) 25 ml Q15M PRN IV DECREASED GLUCOSE; Start 03/23/19 at 18:30 Dextrose (D50w Syringe) 50 ml Q15M PRN IV DECREASED GLUCOSE; Start 03/23/19 at 18:30 Glucagon (Glucagen) 1 mg Q15M PRN IM DECREASED GLUCOSE; Start 03/23/19 at 18:30 Glucose (Glutose) 15 gm Q15M PRN BUCCAL DECREASED GLUCOSE; Start 03/23/19 at 18:30 Epoetin Joseph-epbx (Retacrit (Esrd)) 10,000 unit TuThSa@1700 SC Last administered on 04/09/19 16:34; Admin Dose 10,000 UNIT; Start 03/24/19 at 17:00 Acetaminophen/ Hydrocodone Bitart ([place] (5/325)) 1 tab Q6H PRN PO .MOD PAIN 4- 6 Last administered on 04/09/19 11:59; Admin Dose 1 TAB; Start 03/24/19 at 22:30 Albumin Human 100 ml @ 100 mls/hr WITH DIALYSIS PRN IV SBP <90 DURING DIALYSIS Last administered on 04/09/19 13:05; Admin Dose 100 MLS/HR; Start 03/27/19 at 12:00 Albuterol/ Ipratropium (Duoneb) 3 ml Q4HWA RESP THERAPY HHN Last administered on 04/09/19 16:46; Admin Dose 3 ML; Start 03/27/19 at 21:00 Magnesium Hydroxide (Milk Of Mag) 30 ml DAILY PRN PO CONSTIPATION Last administered on 03/28/19 20:48; Admin Dose 30 ML; Start 03/28/19 at 15:30 Heparin Sodium (Porcine) (Heparin (5000 Units/1ml)) 5,000 unit BID SC Last administered on 04/09/19 08:38; Admin Dose 5,000 UNIT; Start 03/29/19 at 21:00 Metoclopramide HCl (Reglan) 5 mg Q6 IV Last administered on 04/09/19 17:11; Admin Dose 5 MG; Start 03/29/19 at 18:00 Diagnostic Test (Pha) (Accu-Chek) 1 ea 02 XX Last administered on 04/08/19 02:13; Admin Dose 1 EA; Start 04/01/19 at 02:00 Insulin Aspart (Novolog Insulin Pen) NOVOLOG *MODERATE* ALGORITHM WITH MEALS BEDTIME SC Last administered on 04/08/19 17:51; Admin Dose 2 UNIT; Start 03/31/19 at 21:00 Metoclopramide HCl (Reglan) 5 mg Q6H PRN IV NAUSEA; Start 04/01/19 at 09:35 Docusate Sodium/ Ferrous Fumarate (Angela-Sequels) 1 tab DAILY PO Last administered on 04/09/19 08:25; Admin Dose 1 TAB; Start 04/02/19 at 12:30; Stop 05/02/19 at 12:29 Alfuzosin HCl (Uroxatral) 10 mg HS PO Last administered on 04/08/19 20:59; Admin Dose 10 MG; Start 04/05/19 at 21:00 Zolpidem Tartrate (Ambien) 5 mg HS PRN PO INSOMNIA Last administered on 04/09/19 02:39; Admin Dose 5 MG; Start 04/05/19 at 21:30 Insulin Glargine (Lantus) 5 units DAILY@2000 SC Last administered on 04/08/19 20:57; Admin Dose 5 UNITS; Start 04/06/19 at 20:00 Fluconazole (Diflucan) 100 mg DAILY PO Last administered on 04/09/19 08:26; Admin Dose 100 MG; Start 04/06/19 at 20:30; Stop 04/09/19 at 20:29 Nystatin (Nystatin Susp) 5 ml Q8 PO Last administered on 04/09/19 06:06; Admin Dose 5 ML; Start 04/06/19 at 22:00; Stop 04/13/19 at 21:59 Calcium Acetate (Phoslo) 667 mg WITH MEALS PO Last administered on 04/09/19at 08:24; Admin Dose 667 MG; Start 04/07/19 at 11:30 Multivit/Ca Carb/ B Cmplx/FA/Prenat (Gilda-Jennifer) 1 tab DAILY PO Last administered on 04/09/19at 08:26; Admin Dose 1 TAB; Start 04/07/19 at 09:00 Heparin Sodium (Porcine) (Heparin (1000 Units/ml)) 4,500 unit AFTER DIALYSIS CATHETER Last administered on 04/09/19at 14:39; Admin Dose 4,500 UNIT; Start 04/07/19 at 16:00 Ranitidine HCl (Zantac) 150 mg QHS PO Last administered on 04/08/19at 21:01; Admin Dose 150 MG; Start 04/08/19 at 21:00 Losartan Potassium (Cozaar) 25 mg BID PO ; Start 04/09/19 at 21:00 Aspirin (Aspirin) 81 mg DAILY PO ; Start 04/10/19 at 09:00 Carvedilol (Coreg) 25 mg BID PO ; Start 04/09/19 at 21:00 Hydromorphone HCl (Dilaudid) 0.2 mg PACU PRN IV MILD PAIN 1-3; Start 04/09/19 at 19:00; Stop 04/10/19 at 01:00 Hydromorphone HCl (Dilaudid) 0.4 mg PACU PRN IV MOD PAIN 4-6; Start 04/09/19 at 19:00; Stop 04/10/19 at 01:00 Hydromorphone HCl (Dilaudid) 0.6 mg PACU PRN IV SEVERE PAIN 7-10; Start 04/09/19 at 19:00; Stop 04/10/19 at 01:00 Fentanyl (Sublimaze) 25 mcg PACU ORDER PRN IV MILD PAIN 1-3; Start 04/09/19 at 19:00; Stop 04/10/19 at 01:00 Fentanyl (Sublimaze) 50 mcg PACU ORDER PRN IV MOD PAIN 4-6; Start 04/09/19 at 19:00; Stop 04/10/19 at 01:00 Fentanyl (Sublimaze) 75 mcg PACU ORDER PRN IV SEVERE PAIN 7-10; Start 04/09/19 at 19:00; Stop 04/10/19 at 01:00 Ondansetron HCl (Zofran Inj) 4 mg PACU ORDER PRN IV NAUSEA/VOMITING; Start 04/09/19 at 19:00; Stop 04/10/19 at 01:00 Meperidine HCl (Demerol) 25 mg PACU ORDER PRN IV .RIGORS; Start 04/09/19 at 19:00; Stop 04/10/19 at 01:00 Diphenhydramine HCl (Benadryl) 25 mg PACU ORDER PRN IV .PRURITUS; Start 04/09/19 at 19:00; Stop 04/10/19 at 01:00 LUDMILA ANTOINE M.D. Apr 09, 2019 20:21
[2019-04-09] MEDS: ALFUZOSIN (SR) 10 MG TAB PO SCH (21:10)
[2019-04-09] MEDS: LOSARTAN 25 MG TAB PO SCH (21:11)
[2019-04-09] MEDS: ATORVASTATIN 40 MG TAB PO SCH (21:11)
[2019-04-09] MEDS: RANITIDINE 150 MG TAB PO SCH (21:11)
[2019-04-10 00:06] VITALS: BP 134/55; PULSE 70; RESP 18
[2019-04-10] MEDS: METOCLOPRAMIDE 10 MG INJ IV SCH ×4 (00:07→17:33)
[2019-04-10] MEDS: ACCU-CHEK XX SCH (02:00)
[2019-04-10 04:37] VITALS: BP 130/57; PULSE 66; RESP 18
[2019-04-10] MEDS: NYSTATIN SUSP 5 ML CUP PO SCH ×3 (06:07→22:05)
[2019-04-10] MEDS: INSULIN ASPART [NOVOLOG] 3 ML PEN SC SCH ×4 (07:27→21:00)
[2019-04-10 07:28] VITALS: BP 130/62; PULSE 61; RESP 18
[2019-04-10] MEDS: CALCIUM ACETATE 667 MG CAP PO SCH ×3 (07:30→17:32)
[2019-04-10] MEDS ORDERED: ASPIRIN 325 MG TAB ONE (08:03)
[2019-04-10] MEDS: FERROUS FUMARATE (SR) TAB PO SCH (08:14)
[2019-04-10] MEDS: MULTIVIT/CA CARB/B CMPLX/FA TAB PO SCH (08:15)
[2019-04-10] MEDS: LINAGLIPTIN 5 MG TABLET PO SCH (08:15)
[2019-04-10] MEDS: LOSARTAN 25 MG TAB PO SCH ×2 (08:18→21:20)
[2019-04-10] MEDS: HEPARIN 5,000 UNIT/1 ML VIAL SC SCH ×2 (08:24→22:01)
--- NOTE | 2019-04-10 08:27 | PAC ---
Date/Time of Note Date/Time of Note DATE: 04/10/19 TIME: 08:27 Post-Anesthesia Notes Post-Anesthesia Note Last documented vital signs Vital Signs Date Temp Pulse Resp B/P (MAP) Pulse Ox O2 O2 Flow FiO2 Time Delivery Rate 04/10/19 Nasal 2.0 07:35 Cannula 04/10/19 98.2 61 18 130/62 100 07:28 (84) Activity: WNL Respiratory function: WNL Cardiovascular function: WNL Mental status: Baseline Pain reasonably controlled: Yes Hydration appropriate: Yes Nausea/Vomiting absent: No FRANTZ MATA MD Apr 10, 2019 08:27
[2019-04-10] MEDS: ALBUTEROL/IPRATROPIUM (NEB) 3 ML AMP HHN SCH ×4 (08:29→21:17)
[2019-04-10] MEDS: ASPIRIN 81 MG TAB PO SCH (08:38)
--- NOTE | 2019-04-10 08:41 | CONS ---
Assessment/Plan Assessment/Plan Assessment/Plan 1. CKD, next HD planned Sat 2. Awaiting case management securing OP HD facility 3. BP controlled 4. Anemia is stable 5. DM, sugar well controlled 6. Post op revascularization right leg, gangrene and toe amputation and wound closure Consultation Date/Type/Reason Admit Date/Time Mar 23, 2019 at 06:13 Type of Consult Nephrology Date/Time of Note DATE: 04/10/19 TIME: 08:38 Respiratory: No cough, No shortness of breath Cardiovascular: no complaints Gastrointestinal: no complaints Genitourinary: no complaints Musculoskeletal: no complaints Exam/Review of Systems Vital Signs Vitals Vital Signs Date Temp Pulse Resp B/P (MAP) Pulse Ox O2 O2 Flow FiO2 Time Delivery Rate 04/10/19 63 18 98 Nasal 2.0 08:29 Cannula 04/10/19 98.2 130/62 07:28 (84) Intake and Output 04/09/19 04/09/19 04/10/19 1515:00 23:00 07:00 IntakeIntake Total 360 ml 30 ml OutputOutput Total 2200 ml 20 ml BalanceBalance -1840 ml 10 ml Exam Neck: No jvd Respiratory: clear to auscultation Cardiovascular: regular rate and rhythm Gastrointestinal: soft Extremities: No edema, No tenderness Labs Result Diagram: 04/10/19 0545 04/10/19 0545 Results 24hrs Laboratory Tests Test 04/09/19 11:19 04/09/19 17:10 04/09/19 20:56 04/10/19 05:45 Bedside Glucose 170 142 129 White Blood Count 10.9 #H Red Blood Count 2.71 L Hemoglobin 8.4 L Hematocrit 25.7 L Mean Corpuscular 94.8 Volume Mean Corpuscular 31.0 Hemoglobin Mean Corpuscular 32.7 Hemoglobin Concent Red Cell 17.2 H Distribution Width Platelet Count 208 Mean Platelet Volume 10.9 H Immature 0.600 H Granulocytes % Neutrophils % 85.7 H Lymphocytes % 6.1 L Monocytes % 5.9 Eosinophils % 1.6 Basophils % 0.1 Nucleated Red Blood 0.2 H Cells % Immature 0.070 H Granulocytes # Neutrophils # 9.4 H Lymphocytes # 0.7 L Monocytes # 0.6 Eosinophils # 0.2 Basophils # 0.0 Nucleated Red Blood 0.0 Cells # Sodium Level 135 Potassium Level 4.7 Chloride Level 100 Carbon Dioxide Level 29 Anion Gap 6 Blood Urea Nitrogen 44 #H Creatinine 3.15 #H Est Glomerular 20 L Filtrat Rate mL/min Glucose Level 75 Calcium Level 8.0 L Test 04/10/19 07:26 Bedside Glucose 76 Medications Medications Current Medications Atorvastatin Calcium (Lipitor) 40 mg QHS PO Last administered on 04/09/19at 21:11; Admin Dose 40 MG; Start 03/23/19 at 21:00 Linagliptin (Tradjenta) 5 mg DAILY PO Last administered on 04/10/19at 08:15; Admin Dose 5 MG; Start 03/24/19 at 09:00 Ondansetron HCl (Zofran Inj) 4 mg Q4H PRN IV NAUSEA AND/OR VOMITING Last a dministered on 04/05/19at 06:29; Admin Dose 4 MG; Start 03/23/19 at 18:00 Hydromorphone HCl (Dilaudid) 2 mg Q4H PRN IV SEVERE PAIN LEVEL 7-10 Last administered on 04/09/19at 12:48; Admin Dose 2 MG; Start 03/23/19 at 18:00 Miscellaneous Information 1 ea NOTE XX ; Start 03/23/19 at 18:30 Glucose (Glutose) 15 gm Q15M PRN PO DECREASED GLUCOSE; Start 03/23/19 at 18:30 Glucose (Glutose) 22.5 gm Q15M PRN PO DECREASED GLUCOSE; Start 03/23/19 at 18:30 Dextrose (D50w Syringe) 25 ml Q15M PRN IV DECREASED GLUCOSE; Start 03/23/19 at 18:30 Dextrose (D50w Syringe) 50 ml Q15M PRN IV DECREASED GLUCOSE; Start 03/23/19 at 18:30 Glucagon (Glucagen) 1 mg Q15M PRN IM DECREASED GLUCOSE; Start 03/23/19 at 18:30 Glucose (Glutose) 15 gm Q15M PRN BUCCAL DECREASED GLUCOSE; Start 03/23/19 at 18:30 Epoetin Joseph-epbx (Retacrit (Esrd)) 10,000 unit TuThSa@1700 SC Last administered on 04/09/19at 16:34; Admin Dose 10,000 UNIT; Start 03/24/19 at 17:00 Acetaminophen/ Hydrocodone Bitart ([place] (5/325)) 1 tab Q6H PRN PO .MOD PAIN 4- 6 Last administered on 04/09/19 11:59; Admin Dose 1 TAB; Start 03/24/19 at 22:30 Albumin Human 100 ml @ 100 mls/hr WITH DIALYSIS PRN IV SBP <90 DURING DIALYSIS Last administered on 04/09/19 13:05; Admin Dose 100 MLS/HR; Start 03/27/19 at 12:00 Albuterol/ Ipratropium (Duoneb) 3 ml Q4HWA RESP THERAPY HHN Last administered on 04/10/19 08:29; Admin Dose 3 ML; Start 03/27/19 at 21:00 Magnesium Hydroxide (Milk Of Mag) 30 ml DAILY PRN PO CONSTIPATION Last administered on 03/28/19 20:48; Admin Dose 30 ML; Start 03/28/19 at 15:30 Heparin Sodium (Porcine) (Heparin (5000 Units/1ml)) 5,000 unit BID SC Last administered on 04/10/19 08:24; Admin Dose 5,000 UNIT; Start 03/29/19 at 21:00 Metoclopramide HCl (Reglan) 5 mg Q6 IV Last administered on 04/10/19 06:07; Admin Dose 5 MG; Start 03/29/19 at 18:00 Diagnostic Test (Pha) (Accu-Chek) 1 ea 02 XX Last administered on 04/08/19 02:13; Admin Dose 1 EA; Start 04/01/19 at 02:00 Insulin Aspart (Novolog Insulin Pen) NOVOLOG *MODERATE* ALGORITHM WITH MEALS BEDTIME SC Last administered on 04/08/19 17:51; Admin Dose 2 UNIT; Start 03/31/19 at 21:00 Metoclopramide HCl (Reglan) 5 mg Q6H PRN IV NAUSEA; Start 04/01/19 at 09:35 Docusate Sodium/ Ferrous Fumarate (Angela-Sequels) 1 tab DAILY PO Last administered on 04/10/19 08:14; Admin Dose 1 TAB; Start 04/02/19 at 12:30; Stop 05/02/19 at 12:29 Alfuzosin HCl (Uroxatral) 10 mg HS PO Last administered on 04/09/19 21:10; Admin Dose 10 MG; Start 04/05/19 at 21:00 Zolpidem Tartrate (Ambien) 5 mg HS PRN PO INSOMNIA Last administered on 04/09/19 02:39; Admin Dose 5 MG; Start 04/05/19 at 21:30 Insulin Glargine (Lantus) 5 units DAILY@2000 SC Last administered on 04/09/19 20:00; Admin Dose 5 UNITS; Start 04/06/19 at 20:00 Nystatin (Nystatin Susp) 5 ml Q8 PO Last administered on 04/10/19 06:07; Admin Dose 5 ML; Start 04/06/19 at 22:00; Stop 04/13/19 at 21:59 Calcium Acetate (Phoslo) 667 mg WITH MEALS PO Last administered on 04/10/19 07:30; Admin Dose 667 MG; Start 04/07/19 at 11:30 Multivit/Ca Carb/ B Cmplx/FA/Prenat (Gilda-Jennifer) 1 tab DAILY PO Last administered on 04/10/19 08:15; Admin Dose 1 TAB; Start 04/07/19 at 09:00 Heparin Sodium (Porcine) (Heparin (1000 Units/ml)) 4,500 unit AFTER DIALYSIS CATHETER Last administered on 04/09/19 14:39; Admin Dose 4,500 UNIT; Start 04/07/19 at 16:00 Ranitidine HCl (Zantac) 150 mg QHS PO Last administered on 04/09/19 21:11; Admin Dose 150 MG; Start 04/08/19 at 21:00 Losartan Potassium (Cozaar) 25 mg BID PO Last administered on 04/10/19 08:18; Admin Dose 25 MG; Start 04/09/19 at 21:00 Aspirin (Aspirin) 81 mg DAILY PO ; Start 04/10/19 at 09:00 Carvedilol (Coreg) 25 mg BID PO Last administered on 04/09/19 21:11; Admin Dose 25 MG; Start 04/09/19 at 21:00 DOT ASHLEY MD Apr 10, 2019 08:41
[2019-04-10] MEDS ORDERED: METHYLPREDNISOLONE 40 MG INJ IV SCH (09:00)
[2019-04-10] MEDS ORDERED: NPH, HUMAN INSULIN ISOPHANE 3ML VIAL SC SCH (09:00)
--- NOTE | 2019-04-10 09:26 | PN ---
Date/Time of Note Date/Time of Note DATE: 04/10/19 TIME: 09:23 Assessment/Plan Lines/Catheters IV C[facility]ter Type (from [facility]): [place] in Place (from Nrs): No Assessment/Plan Assessment/Plan Doing well s/p R fem-PT bypass, TMA, Permacath placement OK for d/c from my standpoint Followup with me in the office next week Will plan for L arm AVF in the next few weeks Subjective 24 Hr Interval Summary No c/o. Breathing well. TMA was closed yesterday. Exam/Review of Systems Vital Signs Vitals Vital Signs Date Temp Pulse Resp B/P (MAP) Pulse Ox O2 O2 Flow FiO2 Time Delivery Rate 04/10/19 63 18 98 Nasal 2.0 08:29 Cannula 04/10/19 98.2 130/62 07:28 (84) Intake and Output 04/09/19 04/09/19 04/10/19 1414:59 22:59 06:59 IntakeIntake Total 360 ml 30 ml OutputOutput Total 2200 ml 20 ml BalanceBalance -1840 ml 10 ml Exam Free Text/Dictation R leg incisions CDI, 3+ graft pulse R foot wrapped, no staining Results Result Diagram: 04/10/19 0545 04/10/19 0545 WALTER LOWERY MD Apr 10, 2019 09:26
--- NOTE | 2019-04-10 11:07 | CONS ---
Consult Date/Type/Reason Admit Date/Time Mar 23, 2019 at 06:13 Initial Consult Date 03/28/19 Type of Consult Pulmonary Requesting Provider: JOSE PARRY MD Date/Time of Note DATE: 04/10/19 TIME: 11:07 Subjective Patient is comfortable this morning no respiratory distress Objective Vital Signs Date Temp Pulse Resp B/P (MAP) Pulse Ox O2 O2 Flow FiO2 Time Delivery Rate 04/10/19 63 18 98 Nasal 2.0 08:29 Cannula 04/10/19 98.2 130/62 07:28 (84) Intake and Output 04/09/19 04/09/19 04/10/19 1515:00 23:00 07:00 IntakeIntake Total 360 ml 30 ml OutputOutput Total 2200 ml 20 ml BalanceBalance -1840 ml 10 ml Exam GENERAL: Elderly gentleman appears comfortable at rest no acute distress. VITAL SIGNS: per chart NECK: Supple. No JVD or lymphadenopathy. CARDIAC EXAM: S1, S2. No added sounds or murmurs. CHEST: Diminished air entry bilaterally with rales ABDOMEN: Soft, nontender. No guarding or rebound. EXTREMITIES: No cyanosis, clubbing or edema. NEUROLOGIC: Generalized weakness. Vent Setting Fraction of Inspired Oxygen pe: 35 Results/Medications Result Diagram: 04/10/19 0545 04/10/19 0545 Results 24 hrs Laboratory Tests Test 04/09/19 11:19 04/09/19 17:10 04/09/19 20:56 04/10/19 05:45 Bedside Glucose 170 142 129 White Blood Count 10.9 #H Red Blood Count 2.71 L Hemoglobin 8.4 L Hematocrit 25.7 L Mean Corpuscular 94.8 Volume Mean Corpuscular 31.0 Hemoglobin Mean Corpuscular 32.7 Hemoglobin Concent Red Cell 17.2 H Distribution Width Platelet Count 208 Mean Platelet Volume 10.9 H Immature 0.600 H Granulocytes % Neutrophils % 85.7 H Lymphocytes % 6.1 L Monocytes % 5.9 Eosinophils % 1.6 Basophils % 0.1 Nucleated Red Blood 0.2 H Cells % Immature 0.070 H Granulocytes # Neutrophils # 9.4 H Lymphocytes # 0.7 L Monocytes # 0.6 Eosinophils # 0.2 Basophils # 0.0 Nucleated Red Blood 0.0 Cells # Sodium Level 135 Potassium Level 4.7 Chloride Level 100 Carbon Dioxide Level 29 Anion Gap 6 Blood Urea Nitrogen 44 #H Creatinine 3.15 #H Est Glomerular 20 L Filtrat Rate mL/min Glucose Level 75 Calcium Level 8.0 L Test 04/10/19 07:26 Bedside Glucose 76 Medications Current Medications Atorvastatin Calcium (Lipitor) 40 mg QHS PO Last administered on 04/09/19at 21:11; Admin Dose 40 MG; Start 03/23/19 at 21:00 Linagliptin (Tradjenta) 5 mg DAILY PO Last administered on 04/10/19at 08:15; Admin Dose 5 MG; Start 03/24/19 at 09:00 Ondansetron HCl (Zofran Inj) 4 mg Q4H PRN IV NAUSEA AND/OR VOMITING Last administered on 04/05/19at 06:29; Admin Dose 4 MG; Start 03/23/19 at 18:00 Hydromorphone HCl (Dilaudid) 2 mg Q4H PRN IV SEVERE PAIN LEVEL 7-10 Last administered on 04/09/19at 12:48; Admin Dose 2 MG; Start 03/23/19 at 18:00 Miscellaneous Information 1 ea NOTE XX ; Start 03/23/19 at 18:30 Glucose (Glutose) 15 gm Q15M PRN PO DECREASED GLUCOSE; Start 03/23/19 at 18:30 Glucose (Glutose) 22.5 gm Q15M PRN PO DECREASED GLUCOSE; Start 03/23/19 at 18:30 Dextrose (D50w Syringe) 25 ml Q15M PRN IV DECREASED GLUCOSE; Start 03/23/19 at 18:30 Dextrose (D50w Syringe) 50 ml Q15M PRN IV DECREASED GLUCOSE; Start 03/23/19 at 18:30 Glucagon (Glucagen) 1 mg Q15M PRN IM DECREASED GLUCOSE; Start 03/23/19 at 18:30 Glucose (Glutose) 15 gm Q15M PRN BUCCAL DECREASED GLUCOSE; Start 03/23/19 at 18:30 Epoetin Joseph-epbx (Retacrit (Esrd)) 10,000 unit TuThSa@1700 SC Last administer ed on 04/09/19at 16:34; Admin Dose 10,000 UNIT; Start 03/24/19 at 17:00 Acetaminophen/ Hydrocodone Bitart ([place] (5/325)) 1 tab Q6H PRN PO .MOD PAIN 4- 6 Last administered on 04/09/19 11:59; Admin Dose 1 TAB; Start 03/24/19 at 22:30 Albumin Human 100 ml @ 100 mls/hr WITH DIALYSIS PRN IV SBP <90 DURING DIALYSIS Last administered on 04/09/19 13:05; Admin Dose 100 MLS/HR; Start 03/27/19 at 12:00 Albuterol/ Ipratropium (Duoneb) 3 ml Q4HWA RESP THERAPY HHN Last administered on 04/10/19 08:29; Admin Dose 3 ML; Start 03/27/19 at 21:00 Magnesium Hydroxide (Milk Of Mag) 30 ml DAILY PRN PO CONSTIPATION Last administered on 03/28/19 20:48; Admin Dose 30 ML; Start 03/28/19 at 15:30 Heparin Sodium (Porcine) (Heparin (5000 Units/1ml)) 5,000 unit BID SC Last administered on 04/10/19 08:24; Admin Dose 5,000 UNIT; Start 03/29/19 at 21:00 Metoclopramide HCl (Reglan) 5 mg Q6 IV Last administered on 04/10/19 06:07; Admin Dose 5 MG; Start 03/29/19 at 18:00 Diagnostic Test (Pha) (Accu-Chek) 1 ea 02 XX Last administered on 04/08/19 02:13; Admin Dose 1 EA; Start 04/01/19 at 02:00 Insulin Aspart (Novolog Insulin Pen) NOVOLOG *MODERATE* ALGORITHM WITH MEALS BEDTIME SC Last administered on 04/08/19 17:51; Admin Dose 2 UNIT; Start 03/31/19 at 21:00 Metoclopramide HCl (Reglan) 5 mg Q6H PRN IV NAUSEA; Start 04/01/19 at 09:35 Docusate Sodium/ Ferrous Fumarate (Angela-Sequels) 1 tab DAILY PO Last administered on 04/10/19 08:14; Admin Dose 1 TAB; Start 04/02/19 at 12:30; Stop 05/02/19 at 12:29 Alfuzosin HCl (Uroxatral) 10 mg HS PO Last administered on 04/09/19 21:10; Admin Dose 10 MG; Start 04/05/19 at 21:00 Zolpidem Tartrate (Ambien) 5 mg HS PRN PO INSOMNIA Last administered on 04/09 02:39; Admin Dose 5 MG; Start 04/05/19 at 21:30 Insulin Glargine (Lantus) 5 units DAILY@2000 SC Last administered on 04/09/19 20:00; Admin Dose 5 UNITS; Start 04/06/19 at 20:00 Nystatin (Nystatin Susp) 5 ml Q8 PO Last administered on 04/10/19 06:07; Admin Dose 5 ML; Start 04/06/19 at 22:00; Stop 04/13/19 at 21:59 Calcium Acetate (Phoslo) 667 mg WITH MEALS PO Last administered on 04/10/19 07:30; Admin Dose 667 MG; Start 04/07/19 at 11:30 Multivit/Ca Carb/ B Cmplx/FA/Prenat (Gilda-Jennifer) 1 tab DAILY PO Last administered on 04/10/19 08:15; Admin Dose 1 TAB; Start 04/07/19 at 09:00 Heparin Sodium (Porcine) (Heparin (1000 Units/ml)) 4,500 unit AFTER DIALYSIS CATHETER Last administered on 04/09/19 14:39; Admin Dose 4,500 UNIT; Start 04/07/19 at 16:00 Ranitidine HCl (Zantac) 150 mg QHS PO Last administered on 04/09/19 21:11; Admin Dose 150 MG; Start 04/08/19 at 21:00 Losartan Potassium (Cozaar) 25 mg BID PO Last administered on 04/10/19 08:18; Admin Dose 25 MG; Start 04/09/19 at 21:00 Aspirin (Aspirin) 81 mg DAILY PO Last administered on 04/10/19 08:38; Admin Dose 81 MG; Start 04/10/19 at 09:00 Carvedilol (Coreg) 25 mg BID PO Last administered on 04/09/19 21:11; Admin Dose 25 MG; Start 04/09/19 at 21:00 Assessment/Plan Hospital Course (Demo Recall) IMPRESSION: 1. Acute hypoxemic respiratory failure significant radiographic changes concerning for pulmonary edema versus opportunistic infection. 2. Acute on chronic renal failure, now requiring dialysis. 3. Peripheral vascular disease, status post revascularization. 4. Likely aspiration pneumonia as well. 5. Diabetes mellitus. 6. History of hypertension. 7. Benign prostatic hypertrophy. RECOMMENDATIONS: 1. Off high flow O2 now on regular nasal cannula. 2. Aspiration precautions continue antibiotics per infectious diseases currently on meropenem 3. Decrease prednisone and NPH. Anticipate DC steroids tomorrow. 4. Hemodialysis per nephrology. Continue with volume removal as tolerated. DMITRI PAIGE MD, [facility] Apr 10, 2019 11:07
[2019-04-10 11:24] VITALS: BP 128/60; PULSE 65; RESP 18
--- NOTE | 2019-04-10 13:07 | PN ---
Date/Time of Note Date/Time of Note DATE: 04/10/19 TIME: 13:04 Assessment/Plan VTE Prophylaxis Risk score (from Ns)>0 risk: 8 SCD applied (from [facility]): No SCD contraindicated: bilateral LE trauma Pharmacological prophylaxis: heparin Lines/Catheters IV Catheter Type (from [facility]): [place] Urinary Cath still in place: No Assessment/Plan Result Diagram: 04/10/19 0545 04/10/19 0545 Results 24hrs Laboratory Tests Test 04/09/19 17:10 04/09/19 20:56 04/10/19 05:45 04/10/19 07:26 Bedside Glucose 142 129 76 White Blood Count 10.9 #H Red Blood Count 2.71 L Hemoglobin 8.4 L Hematocrit 25.7 L Mean Corpuscular 94.8 Volume Mean Corpuscular 31.0 Hemoglobin Mean Corpuscular 32.7 Hemoglobin Concent Red Cell 17.2 H Distribution Width Platelet Count 208 Mean Platelet Volume 10.9 H Immature 0.600 H Granulocytes % Neutrophils % 85.7 H Lymphocytes % 6.1 L Monocytes % 5.9 Eosinophils % 1.6 Basophils % 0.1 Nucleated Red Blood 0.2 H Cells % Immature 0.070 H Granulocytes # Neutrophils # 9.4 H Lymphocytes # 0.7 L Monocytes # 0.6 Eosinophils # 0.2 Basophils # 0.0 Nucleated Red Blood 0.0 Cells # Sodium Level 135 Potassium Level 4.7 Chloride Level 100 Carbon Dioxide Level 29 Anion Gap 6 Blood Urea Nitrogen 44 #H Creatinine 3.15 #H Est Glomerular 20 L Filtrat Rate mL/min Glucose Level 75 Calcium Level 8.0 L Test 04/10/19 11:16 Bedside Glucose 139 Subjective 24 Hr Interval Summary Free Text/Dictation trying to make xc plans to home. is hd available for next week at [facility] facility. needs dme, pt evaluation and suggestions, home care etc set poss dc after dialysisthis weekend? alert, [place] speaker in bathroom, amb w help diabetes control is good hbp...bp ok on current regimen ckd stsbnlr at this point post vsc surgery etc wound vac on Exam/Review of Systems Exam Vitals Vital Signs Date Temp Pulse Resp B/P (MAP) Pulse Ox O2 O2 Flow FiO2 Time Delivery Rate 04/10/19 67 16 97 Nasal 2.0 12:00 Cannula 04/10/19 98.2 128/60 11:24 (82) Intake and Output 04/09/19 04/09/19 04/10/19 1515:00 23:00 07:00 IntakeIntake Total 360 ml 30 ml OutputOutput Total 2200 ml 20 ml BalanceBalance -1840 ml 10 ml Results Results 24hrs Laboratory Tests Test 04/09/19 17:10 04/09/19 20:56 04/10/19 05:45 04/10/19 07:26 Bedside Glucose 142 129 76 White Blood Count 10.9 #H Red Blood Count 2.71 L Hemoglobin 8.4 L Hematocrit 25.7 L Mean Corpuscular 94.8 Volume Mean Corpuscular 31.0 Hemoglobin Mean Corpuscular 32.7 Hemoglobin Concent Red Cell 17.2 H Distribution Width Platelet Count 208 Mean Platelet Volume 10.9 H Immature 0.600 H Granulocytes % Neutrophils % 85.7 H Lymphocytes % 6.1 L Monocytes % 5.9 Eosinophils % 1.6 Basophils % 0.1 Nucleated Red Blood 0.2 H Cells % Immature 0.070 H Granulocytes # Neutrophils # 9.4 H Lymphocytes # 0.7 L Monocytes # 0.6 Eosinophils # 0.2 Basophils # 0.0 Nucleated Red Blood 0.0 Cells # Sodium Level 135 Potassium Level 4.7 Chloride Level 100 Carbon Dioxide Level 29 Anion Gap 6 Blood Urea Nitrogen 44 #H Creatinine 3.15 #H Est Glomerular 20 L Filtrat Rate mL/min Glucose Level 75 Calcium Level 8.0 L Test 04/10/19 11:16 Bedside Glucose 139 Medications Medication Current Medications Atorvastatin Calcium (Lipitor) 40 mg QHS PO Last administered on 04/09/19at 21:11; Admin Dose 40 MG; Start 03/23/19 at 21:00 Linagliptin (Tradjenta) 5 mg DAILY PO Last administered on 04/10/19at 08:15; Admin Dose 5 MG; Start 03/24/19 at 09:00 Ondansetron HCl (Zofran Inj) 4 mg Q4H PRN IV NAUSEA AND/OR VOMITING Last administered on 04/05/19at 06:29; Admin Dose 4 MG; Start 03/23/19 at 18:00 Hydromorphone HCl (Dilaudid) 2 mg Q4H PRN IV SEVERE PAIN LEVEL 7-10 Last admin istered on 04/09/19 12:48; Admin Dose 2 MG; Start 03/23/19 at 18:00 Miscellaneous Information 1 ea NOTE XX ; Start 03/23/19 at 18:30 Glucose (Glutose) 15 gm Q15M PRN PO DECREASED GLUCOSE; Start 03/23/19 at 18:30 Glucose (Glutose) 22.5 gm Q15M PRN PO DECREASED GLUCOSE; Start 03/23/19 at 18:30 Dextrose (D50w Syringe) 25 ml Q15M PRN IV DECREASED GLUCOSE; Start 03/23/19 at 18:30 Dextrose (D50w Syringe) 50 ml Q15M PRN IV DECREASED GLUCOSE; Start 03/23/19 at 18:30 Glucagon (Glucagen) 1 mg Q15M PRN IM DECREASED GLUCOSE; Start 03/23/19 at 18:30 Glucose (Glutose) 15 gm Q15M PRN BUCCAL DECREASED GLUCOSE; Start 03/23/19 at 18:30 Epoetin Joseph-epbx (Retacrit (Esrd)) 10,000 unit TuThSa@1700 SC Last admini stered on 04/09/19 16:34; Admin Dose 10,000 UNIT; Start 03/24/19 at 17:00 Acetaminophen/ Hydrocodone Bitart ([place] (5/325)) 1 tab Q6H PRN PO .MOD PAIN 4- 6 Last administered on 04/09/19 11:59; Admin Dose 1 TAB; Start 03/24/19 at 22:30 Albumin Human 100 ml @ 100 mls/hr WITH DIALYSIS PRN IV SBP <90 DURING DIALYSIS Last administered on 04/09/19 13:05; Admin Dose 100 MLS/HR; Start 03/27/19 at 12:00 Albuterol/ Ipratropium (Duoneb) 3 ml Q4HWA RESP THERAPY HHN Last administered on 04/10/19 12:00; Admin Dose 3 ML; Start 03/27/19 at 21:00 Magnesium Hydroxide (Milk Of Mag) 30 ml DAILY PRN PO CONSTIPATION Last administered on 03/28/19 20:48; Admin Dose 30 ML; Start 03/28/19 at 15:30 Heparin Sodium (Porcine) (Heparin (5000 Units/1ml)) 5,000 unit BID SC Last administered on 04/10/19 08:24; Admin Dose 5,000 UNIT; Start 03/29/19 at 21:00 Metoclopramide HCl (Reglan) 5 mg Q6 IV Last administered on 04/10/19 12:10; Admin Dose 5 MG; Start 03/29/19 at 18:00 Diagnostic Test (Pha) (Accu-Chek) 1 ea 02 XX Last administered on 04/08/19 02:13; Admin Dose 1 EA; Start 04/01/19 at 02:00 Insulin Aspart (Novolog Insulin Pen) NOVOLOG *MODERATE* ALGORITHM WITH MEALS BEDTIME SC Last administered on 04/08/19 17:51; Admin Dose 2 UNIT; Start 03/31/19 at 21:00 Metoclopramide HCl (Reglan) 5 mg Q6H PRN IV NAUSEA; Start 04/01/19 at 09:35 Docusate Sodium/ Ferrous Fumarate (Angela-Sequels) 1 tab DAILY PO Last administered on 04/10/19 08:14; Admin Dose 1 TAB; Start 04/02/19 at 12:30; Stop 05/02/19 at 12:29 Alfuzosin HCl (Uroxatral) 10 mg HS PO Last administered on 04/09/19 21:10; Admin Dose 10 MG; Start 04/05/19 at 21:00 Zolpidem Tartrate (Ambien) 5 mg HS PRN PO INSOMNIA Last administered on 04/09/19 02:39; Admin Dose 5 MG; Start 04/05/19 at 21:30 Insulin Glargine (Lantus) 5 units DAILY@2000 SC Last administered on 04/09/19 20:00; Admin Dose 5 UNITS; Start 04/06/19 at 20:00 Nystatin (Nystatin Susp) 5 ml Q8 PO Last administered on 04/10/19 06:07; Admin Dose 5 ML; Start 04/06/19 at 22:00; Stop 04/13/19 at 21:59 Calcium Acetate (Phoslo) 667 mg WITH MEALS PO Last administered on 04/10/19 12:09; Admin Dose 667 MG; Start 04/07/19 at 11:30 Multivit/Ca Carb/ B Cmplx/FA/Prenat (Gilda-Jennifer) 1 tab DAILY PO Last administered on 04/10/19 08:15; Admin Dose 1 TAB; Start 04/07/19 at 09:00 Heparin Sodium (Porcine) (Heparin (1000 Units/ml)) 4,500 unit AFTER DIALYSIS CATHETER Last administered on 04/09/19 14:39; Admin Dose 4,500 UNIT; Start 04/07/19 at 16:00 Ranitidine HCl (Zantac) 150 mg QHS PO Last administered on 04/09/19 21:11; Admin Dose 150 MG; Start 04/08/19 at 21:00 Losartan Potassium (Cozaar) 25 mg BID PO Last administered on 04/10/19 08:18; Admin Dose 25 MG; Start 04/09/19 at 21:00 Aspirin (Aspirin) 81 mg DAILY PO Last administered on 04/10/19 08:38; Admin Dose 81 MG; Start 04/10/19 at 09:00 Carvedilol (Coreg) 25 mg BID PO Last administered on 04/09/19 21:11; Admin Dose 25 MG; Start 04/09/19 at 21:00 CARLOTA YAN MD Apr 10, 2019 13:07
--- NOTE | 2019-04-10 14:18 | CONS ---
Assessment/Plan Assessment/Plan Hospital Course (Demo Recall) Acute respiratory failure Acute kidney injury on hemodialysis Peripheral arterial disease status post bypass Hypertension Preserved left ventricular ejection fraction echocardiogram January 2019 NSVT Patient with episodes of NSVT, discussion with nursing staff, this seems to occur during nebulizer treatments. Would consider switching to Xopenex Continue beta-jillian and titrate if needed. Continue losartan as tolerated Fluid management via hemodialysis as per nephrology Continue statin and aspirin therapy if no contraindication Consultation Date/Type/Reason Admit Date/Time Mar 23, 2019 at 06:13 Initial Consult Date 03/28/19 Type of Consult Cardiology Requesting Provider: MICHELE PARRY MD Date/Time of Note DATE: 04/10/19 TIME: 14:16 24 HR Interval Summary Free Text/Dictation No shortness of breath, palpitations Exam/Review of Systems Vital Signs Vitals Vital Signs Date Temp Pulse Resp B/P (MAP) Pulse Ox O2 O2 Flow FiO2 Time Delivery Rate 04/10/19 67 16 97 Nasal 2.0 12:00 Cannula 04/10/19 98.2 128/60 11:24 (82) Intake and Output 04/09/19 04/09/19 04/10/19 1515:00 23:00 07:00 IntakeIntake Total 360 ml 30 ml OutputOutput Total 2200 ml 20 ml BalanceBalance -1840 ml 10 ml Exam Constitutional: alert, oriented Head: normocephalic Respiratory: other (Coarse breath sounds bilaterally, no wheezing) Cardiovascular: regular rate and rhythm (S1-S2 heard) Gastrointestinal: soft, non-tender, bowel sounds Extremities: edema Labs Result Diagram: 04/10/19 0545 04/10/19 0545 Results 24hrs Laboratory Tests Test 04/09/19 17:10 04/09/19 20:56 04/10/19 05:45 04/10/19 07:26 Bedside Glucose 142 129 76 White Blood Count 10.9 #H Red Blood Count 2.71 L Hemoglobin 8.4 L Hematocrit 25.7 L Mean Corpuscular 94.8 Volume Mean Corpuscular 31.0 Hemoglobin Mean Corpuscular 32.7 Hemoglobin Concent Red Cell 17.2 H Distribution Width Platelet Count 208 Mean Platelet Volume 10.9 H Immature 0.600 H Granulocytes % Neutrophils % 85.7 H Lymphocytes % 6.1 L Monocytes % 5.9 Eosinophils % 1.6 Basophils % 0.1 Nucleated Red Blood 0.2 H Cells % Immature 0.070 H Granulocytes # Neutrophils # 9.4 H Lymphocytes # 0.7 L Monocytes # 0.6 Eosinophils # 0.2 Basophils # 0.0 Nucleated Red Blood 0.0 Cells # Sodium Level 135 Potassium Level 4.7 Chloride Level 100 Carbon Dioxide Level 29 Anion Gap 6 Blood Urea Nitrogen 44 #H Creatinine 3.15 #H Est Glomerular 20 L Filtrat Rate mL/min Glucose Level 75 Calcium Level 8.0 L Test 04/10/19 11:16 Bedside Glucose 139 Medications Medications Current Medications Atorvastatin Calcium (Lipitor) 40 mg QHS PO Last administered on 04/09/19at 21:11; Admin Dose 40 MG; Start 03/23/19 at 21:00 Linagliptin (Tradjenta) 5 mg DAILY PO Last administered on 04/10/19at 08:15; Admin Dose 5 MG; Start 03/24/19 at 09:00 Ondansetron HCl (Zofran Inj) 4 mg Q4H PRN IV NAUSEA AND/OR VOMITING Last administered on 04/05/19at 06:29; Admin Dose 4 MG; Start 03/23/19 at 18:00 Hydromorphone HCl (Dilaudid) 2 mg Q4H PRN IV SEVERE PAIN LEVEL 7-10 Last administered on 04/09/19at 12:48; Admin Dose 2 MG; Start 03/23/19 at 18:00 Miscellaneous Information 1 ea NOTE XX ; Start 03/23/19 at 18:30 Glucose (Glutose) 15 gm Q15M PRN PO DECREASED GLUCOSE; Start 03/23/19 at 18:30 Glucose (Glutose) 22.5 gm Q15M PRN PO DECREASED GLUCOSE; Start 03/23/19 at 18:30 Dextrose (D50w Syringe) 25 ml Q15M PRN IV DECREASED GLUCOSE; Start 03/23/19 at 18:30 Dextrose (D50w Syringe) 50 ml Q15M PRN IV DECREASED GLUCOSE; Start 03/23/19 at 18:30 Glucagon (Glucagen) 1 mg Q15M PRN IM DECREASED GLUCOSE; Start 03/23/19 at 18:30 Glucose (Glutose) 15 gm Q15M PRN BUCCAL DECREASED GLUCOSE; Start 03/23/19 at 18:30 Epoetin Joseph-epbx (Retacrit (Esrd)) 10,000 unit TuThSa@1700 SC Last administered on 04/09/19 16:34; Admin Dose 10,000 UNIT; Start 03/24/19 at 17:00 Acetaminophen/ Hydrocodone Bitart ([place] (5/325)) 1 tab Q6H PRN PO .MOD PAIN 4- 6 Last administered on 04/09/19 11:59; Admin Dose 1 TAB; Start 03/24/19 at 22:30 Albumin Human 100 ml @ 100 mls/hr WITH DIALYSIS PRN IV SBP <90 DURING DIALYSIS Last administered on 04/09/19 13:05; Admin Dose 100 MLS/HR; Start 03/27/19 at 12:00 Albuterol/ Ipratropium (Duoneb) 3 ml Q4HWA RESP THERAPY HHN Last administered on 04/10/19 12:00; Admin Dose 3 ML; Start 03/27/19 at 21:00 Magnesium Hydroxide (Milk Of Mag) 30 ml DAILY PRN PO CONSTIPATION Last administered on 03/28/19 20:48; Admin Dose 30 ML; Start 03/28/19 at 15:30 Heparin Sodium (Porcine) (Heparin (5000 Units/1ml)) 5,000 unit BID SC Last administered on 04/10/19 08:24; Admin Dose 5,000 UNIT; Start 03/29/19 at 21:00 Metoclopramide HCl (Reglan) 5 mg Q6 IV Last administered on 04/10/19 12:10; Admin Dose 5 MG; Start 03/29/19 at 18:00 Diagnostic Test (Pha) (Accu-Chek) 1 ea 02 XX Last administered on 04/08/19 02:13; Admin Dose 1 EA; Start 04/01/19 at 02:00 Insulin Aspart (Novolog Insulin Pen) NOVOLOG *MODERATE* ALGORITHM WITH MEALS BE DTIME SC Last administered on 04/08/19 17:51; Admin Dose 2 UNIT; Start 03/31/19 at 21:00 Metoclopramide HCl (Reglan) 5 mg Q6H PRN IV NAUSEA; Start 04/01/19 at 09:35 Docusate Sodium/ Ferrous Fumarate (Angela-Sequels) 1 tab DAILY PO Last administered on 04/10/19 08:14; Admin Dose 1 TAB; Start 04/02/19 at 12:30; Stop 05/02/19 at 12:29 Alfuzosin HCl (Uroxatral) 10 mg HS PO Last administered on 04/09/19 21:10; Admin Dose 10 MG; Start 04/05/19 at 21:00 Zolpidem Tartrate (Ambien) 5 mg HS PRN PO INSOMNIA Last administered on 04/09/19 02:39; Admin Dose 5 MG; Start 04/05/19 at 21:30 Insulin Glargine (Lantus) 5 units DAILY@2000 SC Last administered on 04/09/19 20:00; Admin Dose 5 UNITS; Start 04/06/19 at 20:00 Nystatin (Nystatin Susp) 5 ml Q8 PO Last administered on 04/10/19 06:07; Admin Dose 5 ML; Start 04/06/19 at 22:00; Stop 04/13/19 at 21:59 Calcium Acetate (Phoslo) 667 mg WITH MEALS PO Last administered on 04/10/19 12:09; Admin Dose 667 MG; Start 04/07/19 at 11:30 Multivit/Ca Carb/ B Cmplx/FA/Prenat (Gilda-Jennifer) 1 tab DAILY PO Last administered on 04/10/19 08:15; Admin Dose 1 TAB; Start 04/07/19 at 09:00 Heparin Sodium (Porcine) (Heparin (1000 Units/ml)) 4,500 unit AFTER DIALYSIS CATHETER Last administered on 04/09/19 14:39; Admin Dose 4,500 UNIT; Start 04/07/19 at 16:00 Ranitidine HCl (Zantac) 150 mg QHS PO Last administered on 04/09/19 21:11; Admin Dose 150 MG; Start 04/08/19 at 21:00 Losartan Potassium (Cozaar) 25 mg BID PO Last administered on 04/10/19 08:18; Admin Dose 25 MG; Start 04/09/19 at 21:00 Aspirin (Aspirin) 81 mg DAILY PO Last administered on 04/10/19 08:38; Admin Dose 81 MG; Start 04/10/19 at 09:00 Carvedilol (Coreg) 25 mg BID PO Last administered on 04/09/19 21:11; Admin Dose 25 MG; Start 04/09/19 at 21:00 Michele Richard DO Apr 10, 2019 14:18
[2019-04-10 15:34] VITALS: BP 167/75; PULSE 79; RESP 19
--- NOTE | 2019-04-10 16:12 | CONS ---
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 - h/o amputation of R 5th toe - s/p revision R TMA surgery 04/09/2019 - s/p R TMA with wound VAC placement 04/06/19 - PVD of RLE - h/o percutaneous intervention of RLE in the past - h/o occluded R popliteal artery in doppler in 01/2019 - s/p R SFA to posterior tibial bypass using in situ greater saphenous vein from R thigh and calf on 03/23/2019 - Pt completed meropenem (03/29/2019-04/04/2019), pip/tazo (03/25/19-03/28/19) and IV vancomycin (03/25/19-03/30/19) # other conditions - thrush noted 04/06/19-->resolved after PO fluconazole x 3 days (04/06/2019- 04/09/2019) and nystatin swish and spit x 7 days (04/06/19-04/13/2019) - DM - Hgb A1c 5.7% - former smoker - constipation recommendations: - monitor Pt off systemic antibiotics Management d/w patient Consultation Date/Type/Reason Admit Date/Time Mar 23, 2019 at 06:13 Initial Consult Date 03/28/19 Type of Consult ID Requesting Provider: JOSE PARRY MD Date/Time of Note DATE: 04/10/19 TIME: 16:10 24 HR Interval Summary Constitutional: improved Detailed Summary Eyes: no complaints ENT: no complaints Respiratory: no complaints Cardiovascular: no complaints Gastrointestinal: no complaints Genitourinary: no complaints Musculoskeletal: bone/joint pain (no pain from R foot at this moment) Skin: no complaints Neurologic: no complaints Exam/Review of Systems Exam Vitals Vital Signs Date Temp Pulse Resp B/P (MAP) Pulse Ox O2 O2 Flow FiO2 Time Delivery Rate 04/10/19 98.1 79 19 167/75 100 Nasal 2.0 15:34 (105) Cannula Intake and Output 04/09/19 04/09/19 04/10/19 1515:00 23:00 07:00 IntakeIntake Total 360 ml 30 ml OutputOutput Total 2200 ml 20 ml BalanceBalance -1840 ml 10 ml Constitutional: alert, frail Psych: no complaints, nl mood/affect Head: normocephalic, atraumatic Eyes: nl conjunctiva, nl lids, nl sclera ENMT: nl external ears & nose, nl nasal mucosa & septum, mucosa pink and moist Neck: non-tender Respiratory: clear to auscultation, normal air movement Cardiovascular: regular rate and rhythm, nl pulses Gastrointestinal: soft, non-tender; No distended, No tender Musculoskeletal: other (R foot is dressed) Extremities: No edema Neurological: DIRECTOR TELEVISION II-XII intact, nl mental status, nl speech Skin: nl turgor; No rash or lesions Results Result Diagram: 04/10/19 0545 04/10/19 0545 Results 24hrs Laboratory Tests Test 04/09/19 17:10 04/09/19 20:56 04/10/19 05:45 04/10/19 07:26 Bedside Glucose 142 129 76 White Blood Count 10.9 #H Red Blood Count 2.71 L Hemoglobin 8.4 L Hematocrit 25.7 L Mean Corpuscular 94.8 Volume Mean Corpuscular 31.0 Hemoglobin Mean Corpuscular 32.7 Hemoglobin Concent Red Cell 17.2 H Distribution Width Platelet Count 208 Mean Platelet Volume 10.9 H Immature 0.600 H Granulocytes % Neutrophils % 85.7 H Lymphocytes % 6.1 L Monocytes % 5.9 Eosinophils % 1.6 Basophils % 0.1 Nucleated Red Blood 0.2 H Cells % Immature 0.070 H Granulocytes # Neutrophils # 9.4 H Lymphocytes # 0.7 L Monocytes # 0.6 Eosinophils # 0.2 Basophils # 0.0 Nucleated Red Blood 0.0 Cells # Sodium Level 135 Potassium Level 4.7 Chloride Level 100 Carbon Dioxide Level 29 Anion Gap 6 Blood Urea Nitrogen 44 #H Creatinine 3.15 #H Est Glomerular 20 L Filtrat Rate mL/min Glucose Level 75 Calcium Level 8.0 L Test 04/10/19 11:16 Bedside Glucose 139 Medications Medication Current Medications Atorvastatin Calcium (Lipitor) 40 mg QHS PO Last administered on 04/09/19 21:11; Admin Dose 40 MG; Start 03/23/19 at 21:00 Linagliptin (Tradjenta) 5 mg DAILY PO Last administered on 04/10/19 08:15; Admin Dose 5 MG; Start 03/24/19 at 09:00 Ondansetron HCl (Zofran Inj) 4 mg Q4H PRN IV NAUSEA AND/OR VOMITING Last administered on 04/05/19 06:29; Admin Dose 4 MG; Start 03/23/19 at 18:00 Hydromorphone HCl (Dilaudid) 2 mg Q4H PRN IV SEVERE PAIN LEVEL 7-10 Last administered on 04/09/19 12:48; Admin Dose 2 MG; Start 03/23/19 at 18:00 Miscellaneous Information 1 ea NOTE XX ; Start 03/23/19 at 18:30 Glucose (Glutose) 15 gm Q15M PRN PO DECREASED GLUCOSE; Start 03/23/19 at 18:30 Glucose (Glutose) 22.5 gm Q15M PRN PO DECREASED GLUCOSE; Start 03/23/19 at 18:30 Dextrose (D50w Syringe) 25 ml Q15M PRN IV DECREASED GLUCOSE; Start 03/23/19 at 18:30 Dextrose (D50w Syringe) 50 ml Q15M PRN IV DECREASED GLUCOSE; Start 03/23/19 at 18:30 Glucagon (Glucagen) 1 mg Q15M PRN IM DECREASED GLUCOSE; Start 03/23/19 at 18:30 Glucose (Glutose) 15 gm Q15M PRN BUCCAL DECREASED GLUCOSE; Start 03/23/19 at 18:30 Epoetin Joseph-epbx (Retacrit (Esrd)) 10,000 unit TuThSa@1700 SC Last administered on 04/09/19 16:34; Admin Dose 10,000 UNIT; Start 03/24/19 at 17:00 Acetaminophen/ Hydrocodone Bitart ([place] (5/325)) 1 tab Q6H PRN PO .MOD PAIN 4- 6 Last administered on 04/09/19at 11:59; Admin Dose 1 TAB; Start 03/24/19 at 22:30 Albumin Human 100 ml @ 100 mls/hr WITH DIALYSIS PRN IV SBP <90 DURING DIALYSIS Last administered on 04/09/19 13:05; Admin Dose 100 MLS/HR; Start 03/27/19 at 12:00 Albuterol/ Ipratropium (Duoneb) 3 ml Q4HWA RESP THERAPY HHN Last administered on 04/10/19 12:00; Admin Dose 3 ML; Start 03/27/19 at 21:00 Magnesium Hydroxide (Milk Of Mag) 30 ml DAILY PRN PO CONSTIPATION Last administered on 03/28/19 20:48; Admin Dose 30 ML; Start 03/28/19 at 15:30 Heparin Sodium (Porcine) (Heparin (5000 Units/1ml)) 5,000 unit BID SC Last administered on 04/10/19 08:24; Admin Dose 5,000 UNIT; Start 03/29/19 at 21:00 Metoclopramide HCl (Reglan) 5 mg Q6 IV Last administered on 04/10/19 12:10; Admin Dose 5 MG; Start 03/29/19 at 18:00 Diagnostic Test (Pha) (Accu-Chek) 1 ea 02 XX Last administered on 04/08/19 02:13; Admin Dose 1 EA; Start 04/01/19 at 02:00 Insulin Aspart (Novolog Insulin Pen) NOVOLOG *MODERATE* ALGORITHM WITH MEALS BEDTIME SC Last administered on 04/08/19 17:51; Admin Dose 2 UNIT; Start 03/31/19 at 21:00 Metoclopramide HCl (Reglan) 5 mg Q6H PRN IV NAUSEA; Start 04/01/19 at 09:35 Docusate Sodium/ Ferrous Fumarate (Angela-Sequels) 1 tab DAILY PO Last administered on 04/10/19 08:14; Admin Dose 1 TAB; Start 04/02/19 at 12:30; Stop 05/02/19 at 12:29 Alfuzosin HCl (Uroxatral) 10 mg HS PO Last administered on 04/09/19 21:10; Admin Dose 10 MG; Start 04/05/19 at 21:00 Zolpidem Tartrate (Ambien) 5 mg HS PRN PO INSOMNIA Last administered on 04/09/19 02:39; Admin Dose 5 MG; Start 04/05/19 at 21:30 Insulin Glargine (Lantus) 5 units DAILY@2000 SC Last administered on 04/09/19 20:00; Admin Dose 5 UNITS; Start 04/06/19 at 20:00 Nystatin (Nystatin Susp) 5 ml Q8 PO Last administered on 04/10/19 14:27; Admin Dose 5 ML; Start 04/06/19 at 22:00; Stop 04/13/19 at 21:59 Calcium Acetate (Phoslo) 667 mg WITH MEALS PO Last administered on 04/10/19 12:09; Admin Dose 667 MG; Start 04/07/19 at 11:30 Multivit/Ca Carb/ B Cmplx/FA/Prenat (Gilda-Jennifer) 1 tab DAILY PO Last administered on 04/10/19 08:15; Admin Dose 1 TAB; Start 04/07/19 at 09:00 Heparin Sodium (Porcine) (Heparin (1000 Units/ml)) 4,500 unit AFTER DIALYSIS CATHETER Last administered on 04/09/19 14:39; Admin Dose 4,500 UNIT; Start 04/07/19 at 16:00 Ranitidine HCl (Zantac) 150 mg QHS PO Last administered on 04/09/19 21:11; Admin Dose 150 MG; Start 04/08/19 at 21:00 Losartan Potassium (Cozaar) 25 mg BID PO Last administered on 04/10/19 08:18; Admin Dose 25 MG; Start 04/09/19 at 21:00 Aspirin (Aspirin) 81 mg DAILY PO Last administered on 04/10/19 08:38; Admin Dose 81 MG; Start 04/10/19 at 09:00 Carvedilol (Coreg) 25 mg BID PO Last administered on 04/10/19 15:32; Admin Dose 25 MG; Start 04/09/19 at 21:00 LUDMILA ANTOINE M.D. Apr 10, 2019 16:12
[2019-04-10 19:42] VITALS: BP 169/77; PULSE 75; RESP 18
[2019-04-10] MEDS: INSULIN GLARGINE [LANTus] (100 UNITS/ML) SYG SC SCH (20:04)
[2019-04-10] MEDS: RANITIDINE 150 MG TAB PO SCH (21:12)
[2019-04-10] MEDS: ALFUZOSIN (SR) 10 MG TAB PO SCH (21:14)
[2019-04-10] MEDS: ATORVASTATIN 40 MG TAB PO SCH (21:14)
[2019-04-10] MEDS: HYDROCODONE/APAP (5/325) TAB PO PRN (22:05)
[2019-04-10] MEDS: ZOLPIDEM 5 MG TAB PO PRN (23:24)
[2019-04-11] VITALS (26 sets, daily range): BP systolic 73–150; BP diastolic 38–74; PULSE 63–100; RESP 18–20
[2019-04-11] MEDS: METOCLOPRAMIDE 10 MG INJ IV SCH ×4 (00:19→16:59)
[2019-04-11] MEDS: ACCU-CHEK XX SCH (01:35)
[2019-04-11] MEDS: NYSTATIN SUSP 5 ML CUP PO SCH ×3 (06:37→20:48)
[2019-04-11] MEDS: INSULIN ASPART [NOVOLOG] 3 ML PEN SC SCH ×4 (07:55→21:00)
[2019-04-11] MEDS: ASPIRIN 81 MG TAB PO SCH (08:30)
[2019-04-11] MEDS: LINAGLIPTIN 5 MG TABLET PO SCH (08:30)
[2019-04-11] MEDS: CALCIUM ACETATE 667 MG CAP PO SCH ×3 (08:30→16:58)
[2019-04-11] MEDS: FERROUS FUMARATE (SR) TAB PO SCH (08:30)
[2019-04-11] MEDS: MULTIVIT/CA CARB/B CMPLX/FA TAB PO SCH (08:30)
[2019-04-11] MEDS: LOSARTAN 25 MG TAB PO SCH ×2 (08:31→20:34)
[2019-04-11] MEDS: HEPARIN 5,000 UNIT/1 ML VIAL SC SCH ×2 (08:36→21:20)
[2019-04-11] MEDS: ALBUTEROL/IPRATROPIUM (NEB) 3 ML AMP HHN SCH ×4 (09:42→20:39)
[2019-04-11] MEDS ORDERED: ALBUMIN HUMAN 25% 100 ML IV PRN (12:30)
[2019-04-11] MEDS: ALBUMIN HUMAN 25% 100 ML IV PRN (12:37)
--- NOTE | 2019-04-11 13:48 | PN ---
Date/Time of Note Date/Time of Note DATE: 04/11/19 TIME: 13:42 Assessment/Plan VTE Prophylaxis Risk score (from Ns)>0 risk: 4 [place] [facility] contraindicated: bilateral LE trauma Pharmacological prophylaxis: heparin Lines/Catheters IV Catheter Type (from [facility] [place] Urinary Cath still in place: No Assessment/Plan Problems: (1) Diabetes mellitus type 2 with complications Status: Chronic Comment: Adequate glycemic control at the present time. I may need to actually loosen up a little bit on his medications. From the standpoint stable for discharge (2) End stage renal disease on dialysis due to type 2 diabetes mellitus Status: Chronic Comment: Stable on dialysis. Need confirmation from case management that his outpatient dialysis has been arranged. Otherwise stable for discharge (3) Diabetes, polyneuropathy Status: Chronic Comment: Noted and stable. Qualifiers: Diabetes mellitus type: type 2 Qualified Codes: E11.42 - Type 2 diabetes mellitus with diabetic polyneuropathy (4) Status post transmetatarsal amputation of right foot Onset Date: ~ 04/06/2019 Status: Acute Comment: Recuperating nicely. Stable for discharge (5) Essential (primary) hypertension Status: Chronic Comment: Good blood pressure control (6) Peripheral vascular disease of lower extremity Status: Chronic Comment: Status post intervention and stable, ready for discharge (7) Hyperlipidemia Status: Chronic Comment: Continue with statin therapy. Stable for discharge Qualifiers: Hyperlipidemia type: pure hypercholesterolemia Qualified Codes: E78.00 - Pure hypercholesterolemia, unspecified (8) Benign prostatic hyperplasia with urinary obstruction Status: Chronic Comment: On 5 alpha reductase inhibitor and stable for discharge (9) Vitamin D deficiency Status: Chronic Comment: Replaced. Result Diagram: 04/11/19 0555 04/11/19 0555 Results 24hrs Laboratory Tests Test 04/10/19 17:30 04/10/19 20:00 04/10/19 21:11 04/11/19 05:55 Bedside Glucose 150 120 120 White Blood Count 7.1 # Red Blood Count 2.60 L Hemoglobin 8.0 L Hematocrit 24.7 L Mean Corpuscular 95.0 Volume Mean Corpuscular 30.8 Hemoglobin Mean Corpuscular 32.4 Hemoglobin Concent Red Cell 17.2 H Distribution Width Platelet Count 163 # Mean Platelet Volume 10.9 H Immature 0.800 H Granulocytes % Neutrophils % 80.4 H Lymphocytes % 6.9 L Monocytes % 7.2 Eosinophils % 4.6 Basophils % 0.1 Nucleated Red Blood 0.4 H Cells % Immature 0.060 H Granulocytes # Neutrophils # 5.7 Lymphocytes # 0.5 L Monocytes # 0.5 Eosinophils # 0.3 Basophils # 0.0 Nucleated Red Blood 0.0 Cells # Sodium Level 129 L Potassium Level 4.8 Chloride Level 96 L Carbon Dioxide Level 26 Anion Gap 7 Blood Urea Nitrogen 59 H Creatinine 4.28 #H Est Glomerular 14 L Filtrat Rate mL/min Glucose Level 63 #L Calcium Level 7.4 L Phosphorus Level 3.3 Test 04/11/19 07:40 04/11/19 08:20 04/11/19 11:53 Bedside Glucose 105 94 148 CC: Michele Richard DO; CJ DODD DPM; LUDMILA ANTOINE M.D.; DOT ASHLEY MD ; Subjective 24 Hr Interval Summary Free Text/Dictation Patient reports he is feeling well and is looking forward to being able to go home Constitutional: no complaints Respiratory: no complaints Cardiovascular: no complaints Gastrointestinal: no complaints Genitourinary: no complaints Exam/Review of Systems Exam Vitals Vital Signs Date Temp Pulse Resp B/P (MAP) Pulse Ox O2 O2 Flow FiO2 Time Delivery Rate 04/11/19 76 20 109/56 98 Room Air 13:02 (73) 04/11/19 97.9 2.0 11:35 04/11/19 27 02:08 Intake and Output 04/10/19 04/10/19 04/11/19 1515:00 23:00 07:00 IntakeIntake Total 450 ml 300 ml OutputOutput Total 450 ml BalanceBalance 450 ml -150 ml Constitutional: alert, oriented Respiratory: clear to auscultation, normal air movement Cardiovascular: regular rate and rhythm, nl pulses Results Results 24hrs Laboratory Tests Test 04/10/19 17:30 04/10/19 20:00 04/10/19 21:11 04/11/19 05:55 Bedside Glucose 150 120 120 White Blood Count 7.1 # Red Blood Count 2.60 L Hemoglobin 8.0 L Hematocrit 24.7 L Mean Corpuscular 95.0 Volume Mean Corpuscular 30.8 Hemoglobin Mean Corpuscular 32.4 Hemoglobin Concent Red Cell 17.2 H Distribution Width Platelet Count 163 # Mean Platelet Volume 10.9 H Immature 0.800 H Granulocytes % Neutrophils % 80.4 H Lymphocytes % 6.9 L Monocytes % 7.2 Eosinophils % 4.6 Basophils % 0.1 Nucleated Red Blood 0.4 H Cells % Immature 0.060 H Granulocytes # Neutrophils # 5.7 Lymphocytes # 0.5 L Monocytes # 0.5 Eosinophils # 0.3 Basophils # 0.0 Nucleated Red Blood 0.0 Cells # Sodium Level 129 L Potassium Level 4.8 Chloride Level 96 L Carbon Dioxide Level 26 Anion Gap 7 Blood Urea Nitrogen 59 H Creatinine 4.28 #H Est Glomerular 14 L Filtrat Rate mL/min Glucose Level 63 #L Calcium Level 7.4 L Phosphorus Level 3.3 Test 04/11/19 07:40 04/11/19 08:20 04/11/19 11:53 Bedside Glucose 105 94 148 Medications Medication Current Medications Atorvastatin Calcium (Lipitor) 40 mg QHS PO Last administered on 04/10/19at 21:14; Admin Dose 40 MG; Start 03/23/19 at 21:00 Linagliptin (Tradjenta) 5 mg DAILY PO Last administered on 04/11/19at 08:30; Admin Dose 5 MG; Start 03/24/19 at 09:00 Ondansetron HCl (Zofran Inj) 4 mg Q4H PRN IV NAUSEA AND/OR VOMITING Last administered on 04/05/19at 06:29; Admin Dose 4 MG; Start 03/23/19 at 18:00 Hydromorphone HCl (Dilaudid) 2 mg Q4H PRN IV SEVERE PAIN LEVEL 7-10 Last administered on 04/09/19at 12:48; Admin Dose 2 MG; Start 03/23/19 at 18:00 Miscellaneous Information 1 ea NOTE XX ; Start 03/23/19 at 18:30 Glucose (Glutose) 15 gm Q15M PRN PO DECREASED GLUCOSE; Start 03/23/19 at 18:30 Glucose (Glutose) 22.5 gm Q15M PRN PO DECREASED GLUCOSE; Start 03/23/19 at 18:30 Dextrose (D50w Syringe) 25 ml Q15M PRN IV DECREASED GLUCOSE; Start 03/23/19 at 18:30 Dextrose (D50w Syringe) 50 ml Q15M PRN IV DECREASED GLUCOSE; Start 03/23/19 at 18:30 Glucagon (Glucagen) 1 mg Q15M PRN IM DECREASED GLUCOSE; Start 03/23/19 at 18:30 Glucose (Glutose) 15 gm Q15M PRN BUCCAL DECREASED GLUCOSE; Start 03/23/19 at 18:30 Epoetin Joseph-epbx (Retacrit (Esrd)) 10,000 unit TuThSa@1700 SC Last administered on 04/09/19 16:34; Admin Dose 10,000 UNIT; Start 03/24/19 at 17:00 Acetaminophen/ Hydrocodone Bitart ([place] (5/325)) 1 tab Q6H PRN PO .MOD PAIN 4- 6 Last administered on 04/10/19 22:05; Admin Dose 1 TAB; Start 03/24/19 at 22:30 Albumin Human 100 ml @ 100 mls/hr WITH DIALYSIS PRN IV SBP <90 DURING DIALYSIS Last administered on 04/11/19 12:37; Admin Dose 100 MLS/HR; Start 03/27/19 at 12:00 Albuterol/ Ipratropium (Duoneb) 3 ml Q4HWA RESP THERAPY HHN Last administered on 04/11/19 09:42; Admin Dose 3 ML; Start 03/27/19 at 21:00 Magnesium Hydroxide (Milk Of Mag) 30 ml DAILY PRN PO CONSTIPATION Last administered on 03/28/19 20:48; Admin Dose 30 ML; Start 03/28/19 at 15:30 Heparin Sodium (Porcine) (Heparin (5000 Units/1ml)) 5,000 unit BID SC Last administered on 04/11/19 08:36; Admin Dose 5,000 UNIT; Start 03/29/19 at 21:00 Metoclopramide HCl (Reglan) 5 mg Q6 IV Last administered on 04/11/19 11:56; Admin Dose 5 MG; Start 03/29/19 at 18:00 Diagnostic Test (Pha) (Accu-Chek) 1 ea 02 XX Last administered on 04/08/19 02:13; Admin Dose 1 EA; Start 04/01/19 at 02:00 Insulin Aspart (Novolog Insulin Pen) NOVOLOG *MODERATE* ALGORITHM WITH MEALS BEDTIME SC Last administered on 04/10/19 17:58; Admin Dose 2 UNIT; Start 03/31/19 at 21:00 Metoclopramide HCl (Reglan) 5 mg Q6H PRN IV NAUSEA; Start 04/01/19 at 09:35 Docusate Sodium/ Ferrous Fumarate (Angela-Sequels) 1 tab DAILY PO Last administered on 04/11/19 08:30; Admin Dose 1 TAB; Start 04/02/19 at 12:30; Stop 05/02/19 at 12:29 Alfuzosin HCl (Uroxatral) 10 mg HS PO Last administered on 04/10/19 21:14; Admin Dose 10 MG; Start 04/05/19 at 21:00 Zolpidem Tartrate (Ambien) 5 mg HS PRN PO INSOMNIA Last administered on 04/10/19 23:24; Admin Dose 5 MG; Start 04/05/19 at 21:30 Insulin Glargine (Lantus) 5 units DAILY@2000 SC Last administered on 04/10/19 20:04; Admin Dose 5 UNITS; Start 04/06/19 at 20:00 Nystatin (Nystatin Susp) 5 ml Q8 PO Last administered on 04/11/19 06:37; Admin Dose 5 ML; Start 04/06/19 at 22:00; Stop 04/13/19 at 21:59 Calcium Acetate (Phoslo) 667 mg WITH MEALS PO Last administered on 04/11/19 08:30; Admin Dose 667 MG; Start 04/07/19 at 11:30 Multivit/Ca Carb/ B Cmplx/FA/Prenat (Gilda-Jennifer) 1 tab DAILY PO Last administered on 04/11/19 08:30; Admin Dose 1 TAB; Start 04/07/19 at 09:00 Heparin Sodium (Porcine) (Heparin (1000 Units/ml)) 4,500 unit AFTER DIALYSIS CATHETER Last administered on 04/09/19 14:39; Admin Dose 4,500 UNIT; Start 04/07/19 at 16:00 Ranitidine HCl (Zantac) 150 mg QHS PO Last administered on 04/10/19 21:12; Admin Dose 150 MG; Start 04/08/19 at 21:00 Losartan Potassium (Cozaar) 25 mg BID PO Last administered on 04/10/19 21:20; Admin Dose 25 MG; Start 04/09/19 at 21:00 Aspirin (Aspirin) 81 mg DAILY PO Last administered on 04/11/19at 08:30; Admin Dose 81 MG; Start 04/10/19 at 09:00 Carvedilol (Coreg) 25 mg BID PO Last administered on 04/10/19at 21:21; Admin Dose 25 MG; Start 04/09/19 at 21:00 Albumin Human 100 ml @ 100 mls/hr WITH DIALYSIS PRN IV SBP <90 DURING DIALYSIS; Start 04/11/19 at 12:30 KYLEE POE MD Apr 11, 2019 13:48
[2019-04-11] MEDS: HEPARIN 1000 UNITS/ML 10 ML INJ CATHETER SCH (14:30)
--- NOTE | 2019-04-11 16:10 | CONS ---
Assessment/Plan Assessment/Plan Assessment/Plan (Daily) 1. ESRD: on hd today and will plan on next hd on saturday. arrangements for outpatient hd in progress, 2. HTN: stable 3. Anemia: on epogen. monitor iron sats 4.hyperlipidemia: on statin 5. DM, sugar well controlled 6. Post op revascularization right leg, gangrene and toe amputation and wound closure Consultation Date/Type/Reason Admit Date/Time Mar 23, 2019 at 06:13 Initial Consult Date 03/28/19 Requesting Provider: JOSE PARRY MD Date/Time of Note DATE: 04/11/19 TIME: 16:08 24 HR Interval Summary Free Text/Dictation doing well. on hd and tolerating well. bp dropped transiently and responded well to albumin Exam/Review of Systems Exam Vitals Vital Signs Date Temp Pulse Resp B/P (MAP) Pulse Ox O2 O2 Flow FiO2 Time Delivery Rate 04/11/19 97.9 85 19 138/62 95 Nasal 2.0 15:37 (87) Cannula 04/11/19 27 02:08 Intake and Output 04/10/19 04/10/19 04/11/19 1515:00 23:00 07:00 IntakeIntake Total 450 ml 300 ml OutputOutput Total 450 ml BalanceBalance 450 ml -150 ml Constitutional: alert, oriented, well developed Psych: no complaints Head: normocephalic Eyes: nl conjunctiva Neck: supple, non-tender, jvd Respiratory: clear to auscultation Cardiovascular: regular rate and rhythm Gastrointestinal: soft Results Result Diagram: 04/11/19 0555 04/11/19 0555 Results 24hrs Laboratory Tests Test 04/10/19 17:30 04/10/19 20:00 04/10/19 21:11 04/11/19 05:55 Bedside Glucose 150 120 120 White Blood Count 7.1 # Red Blood Count 2.60 L Hemoglobin 8.0 L Hematocrit 24.7 L Mean Corpuscular 95.0 Volume Mean Corpuscular 30.8 Hemoglobin Mean Corpuscular 32.4 Hemoglobin Concent Red Cell 17.2 H Distribution Width Platelet Count 163 # Mean Platelet Volume 10.9 H Immature 0.800 H Granulocytes % Neutrophils % 80.4 H Lymphocytes % 6.9 L Monocytes % 7.2 Eosinophils % 4.6 Basophils % 0.1 Nucleated Red Blood 0.4 H Cells % Immature 0.060 H Granulocytes # Neutrophils # 5.7 Lymphocytes # 0.5 L Monocytes # 0.5 Eosinophils # 0.3 Basophils # 0.0 Nucleated Red Blood 0.0 Cells # Sodium Level 129 L Potassium Level 4.8 Chloride Level 96 L Carbon Dioxide Level 26 Anion Gap 7 Blood Urea Nitrogen 59 H Creatinine 4.28 #H Est Glomerular 14 L Filtrat Rate mL/min Glucose Level 63 #L Calcium Level 7.4 L Phosphorus Level 3.3 Test 04/11/19 07:40 04/11/19 08:20 04/11/19 11:53 Bedside Glucose 105 94 148 Medications Medication Current Medications Atorvastatin Calcium (Lipitor) 40 mg QHS PO Last administered on 04/10/19at 21:14; Admin Dose 40 MG; Start 03/23/19 at 21:00 Linagliptin (Tradjenta) 5 mg DAILY PO Last administered on 04/11/19at 08:30; Admin Dose 5 MG; Start 03/24/19 at 09:00 Ondansetron HCl (Zofran Inj) 4 mg Q4H PRN IV NAUSEA AND/OR VOMITING Last administered on 04/05/19at 06:29; Admin Dose 4 MG; Start 03/23/19 at 18:00 Hydromorphone HCl (Dilaudid) 2 mg Q4H PRN IV SEVERE PAIN LEVEL 7-10 Last administered on 04/09/19at 12:48; Admin Dose 2 MG; Start 03/23/19 at 18:00 Miscellaneous Information 1 ea NOTE XX ; Start 03/23/19 at 18:30 Glucose (Glutose) 15 gm Q15M PRN PO DECREASED GLUCOSE; Start 03/23/19 at 18:30 Glucose (Glutose) 22.5 gm Q15M PRN PO DECREASED GLUCOSE; Start 03/23/19 at 18:30 Dextrose (D50w Syringe) 25 ml Q15M PRN IV DECREASED GLUCOSE; Start 03/23/19 at 18:30 Dextrose (D50w Syringe) 50 ml Q15M PRN IV DECREASED GLUCOSE; Start 03/23/19 at 18:30 Glucagon (Glucagen) 1 mg Q15M PRN IM DECREASED GLUCOSE; Start 03/23/19 at 18:30 Glucose (Glutose) 15 gm Q15M PRN BUCCAL DECREASED GLUCOSE; Start 03/23/19 at 18:30 Epoetin Joseph-epbx (Retacrit (Esrd)) 10,000 unit TuThSa@1700 SC Last administered on 04/09/19 16:34; Admin Dose 10,000 UNIT; Start 03/24/19 at 17:00 Acetaminophen/ Hydrocodone Bitart ([place] (5/325)) 1 tab Q6H PRN PO .MOD PAIN 4- 6 Last administered on 04/10/19 22:05; Admin Dose 1 TAB; Start 03/24/19 at 22:30 Albumin Human 100 ml @ 100 mls/hr WITH DIALYSIS PRN IV SBP <90 DURING DIALYSIS Last administered on 04/11/19 12:37; Admin Dose 100 MLS/HR; Start 03/27/19 at 12:00 Albuterol/ Ipratropium (Duoneb) 3 ml Q4HWA RESP THERAPY HHN Last administered on 04/11/19 14:13; Admin Dose 3 ML; Start 03/27/19 at 21:00 Magnesium Hydroxide (Milk Of Mag) 30 ml DAILY PRN PO CONSTIPATION Last administered on 03/28/19 20:48; Admin Dose 30 ML; Start 03/28/19 at 15:30 Heparin Sodium (Porcine) (Heparin (5000 Units/1ml)) 5,000 unit BID SC Last administered on 04/11/19 08:36; Admin Dose 5,000 UNIT; Start 03/29/19 at 21:00 Metoclopramide HCl (Reglan) 5 mg Q6 IV Last administered on 04/11/19 11:56; Admin Dose 5 MG; Start 03/29/19 at 18:00 Diagnostic Test (Pha) (Accu-Chek) 1 ea 02 XX Last administered on 04/08/19 02:13; Admin Dose 1 EA; Start 04/01/19 at 02:00 Insulin Aspart (Novolog Insulin Pen) NOVOLOG *MODERATE* ALGORITHM WITH MEALS BEDTIME SC Last administered on 04/10/19 17:58; Admin Dose 2 UNIT; Start 03/31/19 at 21:00 Metoclopramide HCl (Reglan) 5 mg Q6H PRN IV NAUSEA; Start 04/01/19 at 09:35 Docusate Sodium/ Ferrous Fumarate (Angela-Sequels) 1 tab DAILY PO Last administered on 04/11/19 08:30; Admin Dose 1 TAB; Start 04/02/19 at 12:30; Stop 05/02/19 at 12:29 Alfuzosin HCl (Uroxatral) 10 mg HS PO Last administered on 04/10/19 21:14; Admin Dose 10 MG; Start 04/05/19 at 21:00 Zolpidem Tartrate (Ambien) 5 mg HS PRN PO INSOMNIA Last administered on 04/10/19 23:24; Admin Dose 5 MG; Start 04/05/19 at 21:30 Insulin Glargine (Lantus) 5 units DAILY@2000 SC Last administered on 04/10/19 20:04; Admin Dose 5 UNITS; Start 04/06/19 at 20:00 Nystatin (Nystatin Susp) 5 ml Q8 PO Last administered on 04/11/19 14:28; Admin Dose 5 ML; Start 04/06/19 at 22:00; Stop 04/13/19 at 21:59 Calcium Acetate (Phoslo) 667 mg WITH MEALS PO Last administered on 04/11/19 08:30; Admin Dose 667 MG; Start 04/07/19 at 11:30 Multivit/Ca Carb/ B Cmplx/FA/Prenat (Gilda-Jennifer) 1 tab DAILY PO Last administered on 04/11/19 08:30; Admin Dose 1 TAB; Start 04/07/19 at 09:00 Heparin Sodium (Porcine) (Heparin (1000 Units/ml)) 4,500 unit AFTER DIALYSIS CATHETER Last administered on 04/11/19 14:30; Admin Dose 4,500 UNIT; Start 04/07/19 at 16:00 Ranitidine HCl (Zantac) 150 mg QHS PO Last administered on 04/10/19 21:12; Admin Dose 150 MG; Start 04/08/19 at 21:00 Losartan Potassium (Cozaar) 25 mg BID PO Last administered on 04/10/19 21:20; Admin Dose 25 MG; Start 04/09/19 at 21:00 Aspirin (Aspirin) 81 mg DAILY PO Last administered on 04/11/19 08:30; Admin Dose 81 MG; Start 04/10/19 at 09:00 Carvedilol (Coreg) 25 mg BID PO Last administered on 04/10/19 21:21; Admin Dose 25 MG; Start 04/09/19 at 21:00 Albumin Human 100 ml @ 100 mls/hr WITH DIALYSIS PRN IV SBP <90 DURING DIALYSIS; Start 04/11/19 at 12:30 BRENDA GRANDE MD Apr 11, 2019 16:10
--- NOTE | 2019-04-11 16:25 | CONS ---
Consult Date/Type/Reason Admit Date/Time Mar 23, 2019 at 06:13 Initial Consult Date 03/28/19 Requesting Provider: JOSE PARRY MD Date/Time of Note DATE: 04/11/19 TIME: 16:20 Subjective Cardiology follow-up progress note Subjective: Case discussed with staff and telemetry was reviewed. Patient with no more episode of ventricular tachycardia today Discussed with family at the bedside Patient himself denies any chest pain or pressure to me denies any PND orthopnea or shortness of breath to me Objective: General: no acute distress HEENT: NC/AT. pupils are equal. round. NECK: NO JVD. no stridor. CV: RRR. systolic murmur; no gallop or rubs. PULM: no wheezing or rhonchi. GI: SOFT, NT, ND, no rebound or guarding Extremity: Right foot IN dressing neuro: awake and alert, OX3. Psych: calm and pleasant rectal: deferred : normal Right foot x-ray shows: Stable postsurgical changes with interval removal of a wound vac. Forefoot soft tissue swelling and several small locules of air remaining. Objective Vitals Vital Signs Date Temp Pulse Resp B/P (MAP) Pulse Ox O2 O2 Flow FiO2 Time Delivery Rate 04/11/19 97.9 85 19 138/62 95 Nasal 2.0 15:37 (87) Cannula 04/11/19 02:08 Intake and Output 04/10/19 04/10/19 04/11/19 1515:00 23:00 07:00 IntakeIntake Total 450 ml 300 ml OutputOutput Total 450 ml BalanceBalance 450 ml -150 ml Results/Medications Result Diagram: 04/11/19 0555 04/11/19 0555 Results 24 hrs Laboratory Tests Test 04/10/19 17:30 04/10/19 20:00 04/10/19 21:11 04/11/19 05:55 Bedside Glucose 150 120 120 White Blood Count 7.1 # Red Blood Count 2.60 L Hemoglobin 8.0 L Hematocrit 24.7 L Mean Corpuscular 95.0 Volume Mean Corpuscular 30.8 Hemoglobin Mean Corpuscular 32.4 Hemoglobin Concent Red Cell 17.2 H Distribution Width Platelet Count 163 # Mean Platelet Volume 10.9 H Immature 0.800 H Granulocytes % Neutrophils % 80.4 H Lymphocytes % 6.9 L Monocytes % 7.2 Eosinophils % 4.6 Basophils % 0.1 Nucleated Red Blood 0.4 H Cells % Immature 0.060 H Granulocytes # Neutrophils # 5.7 Lymphocytes # 0.5 L Monocytes # 0.5 Eosinophils # 0.3 Basophils # 0.0 Nucleated Red Blood 0.0 Cells # Sodium Level 129 L Potassium Level 4.8 Chloride Level 96 L Carbon Dioxide Level 26 Anion Gap 7 Blood Urea Nitrogen 59 H Creatinine 4.28 #H Est Glomerular 14 L Filtrat Rate mL/min Glucose Level 63 #L Calcium Level 7.4 L Phosphorus Level 3.3 Test 04/11/19 07:40 04/11/19 08:20 04/11/19 11:53 Bedside Glucose 105 94 148 Home Meds Active Scripts Amoxicillin/Potassium Clav (Amox-Clav 875-125 mg Tablet) 875-125 mg Tab, 1 TAB PO BID for 5 Days, #10 TAB 0 Refills Prov:JOSE PARRY MD 03/18/19 Linagliptin (TRADJENTA) 5 Mg Tablet, 5 MG PO DAILY for 30 Days, #30 TAB 3 Refills Prov:JOSE PARRY MD 03/18/19 Hydrocodone Bit-Acetaminophen (Hydrocodone Bit-APAP) 5-325MG Tablet, 1 TAB PO Q6 H PRN for .MOD PAIN 4-6 for 5 Days, #20 TAB 0 Refills Prov:JOSE PARRY MD 03/18/19 Ferrous Sulfate* (Ferrous Sulfate*) 325 Mg Tabec, 325 MG PO TID for 30 Days, #90 TAB 2 Refills Prov:JOSE PARRY MD 03/18/19 Ranitidine Hcl* (Ranitidine Hcl*) 150 Mg Tablet, 150 MG PO DAILY for 30 Days, #30 TAB 5 Refills Prov:JOSE PARRY MD 02/02/19 Metoclopramide Hcl* (Metoclopramide Hcl*) 5 Mg Tablet, 5 MG PO AC MEALS for 30 Days, #90 TAB 5 Refills Prov:JOSE PARRY MD 02/02/19 Carvedilol* (Carvedilol*) 12.5 Mg Tablet, 12.5 MG PO BID for 30 Days, #60 TAB 5 Refills Prov:JOSE PARRY MD 02/02/19 Cilostazol* (Cilostazol*) 100 Mg Tablet, 50 MG PO BID for 30 Days, #30 TAB 5 Refills Prov:JOSE PARRY MD 02/02/19 Reported Medications Glycopyrrolate* (Glycopyrrolate*) 1 Mg Tablet, 1 MG PO BID, TAB 01/29/19 Amlodipine Besylate* (Norvasc*) 5 Mg Tablet, 5 MG PO DAILY, TAB 01/29/19 Ergocalciferol (Vitamin D2) (VITAMIN D2) 50,000 Unit Capsule, 58096 UNIT PO Q FRI, CAP 01/29/19 Atorvastatin* (Atorvastatin*) 40 Mg Tablet, 40 MG PO QHS, #30 TAB 01/29/19 Medications Current Medications Atorvastatin Calcium (Lipitor) 40 mg QHS PO Last administered on 04/10/19at 21:14; Admin Dose 40 MG; Start 03/23/19 at 21:00 Linagliptin (Tradjenta) 5 mg DAILY PO Last administered on 04/11/19at 08:30; Admin Dose 5 MG; Start 03/24/19 at 09:00 Ondansetron HCl (Zofran Inj) 4 mg Q4H PRN IV NAUSEA AND/OR VOMITING Last administered on 04/05/19at 06:29; Admin Dose 4 MG; Start 03/23/19 at 18:00 Hydromorphone HCl (Dilaudid) 2 mg Q4H PRN IV SEVERE PAIN LEVEL 7-10 Last administered on 04/09/19at 12:48; Admin Dose 2 MG; Start 03/23/19 at 18:00 Miscellaneous Information 1 ea NOTE XX ; Start 03/23/19 at 18:30 Glucose (Glutose) 15 gm Q15M PRN PO DECREASED GLUCOSE; Start 03/23/19 at 18:30 Glucose (Glutose) 22.5 gm Q15M PRN PO DECREASED GLUCOSE; Start 03/23/19 at 18:30 Dextrose (D50w Syringe) 25 ml Q15M PRN IV DECREASED GLUCOSE; Start 03/23/19 at 18:30 Dextrose (D50w Syringe) 50 ml Q15M PRN IV DECREASED GLUCOSE; Start 03/23/19 at 18:30 Glucagon (Glucagen) 1 mg Q15M PRN IM DECREASED GLUCOSE; Start 03/23/19 at 18:30 Glucose (Glutose) 15 gm Q15M PRN BUCCAL DECREASED GLUCOSE; Start 03/23/19 at 18:30 Epoetin Joseph-epbx (Retacrit (Esrd)) 10,000 unit TuThSa@1700 SC Last administered on 04/09/19 16:34; Admin Dose 10,000 UNIT; Start 03/24/19 at 17:00 Acetaminophen/ Hydrocodone Bitart ([place] (5/325)) 1 tab Q6H PRN PO .MOD PAIN 4- 6 Last administered on 04/10/19 22:05; Admin Dose 1 TAB; Start 03/24/19 at 22:30 Albumin Human 100 ml @ 100 mls/hr WITH DIALYSIS PRN IV SBP <90 DURING DIALYSIS Last administered on 04/11/19 12:37; Admin Dose 100 MLS/HR; Start 03/27/19 at 12:00 Albuterol/ Ipratropium (Duoneb) 3 ml Q4HWA RESP THERAPY HHN Last administered on 04/11/19 14:13; Admin Dose 3 ML; Start 03/27/19 at 21:00 Magnesium Hydroxide (Milk Of Mag) 30 ml DAILY PRN PO CONSTIPATION Last administered on 03/28/19 20:48; Admin Dose 30 ML; Start 03/28/19 at 15:30 Heparin Sodium (Porcine) (Heparin (5000 Units/1ml)) 5,000 unit BID SC Last administered on 04/11/19 08:36; Admin Dose 5,000 UNIT; Start 03/29/19 at 21:00 Metoclopramide HCl (Reglan) 5 mg Q6 IV Last administered on 04/11/19 11:56; Admin Dose 5 MG; Start 03/29/19 at 18:00 Diagnostic Test (Pha) (Accu-Chek) 1 ea 02 XX Last administered on 04/08/19 02:13; Admin Dose 1 EA; Start 04/01/19 at 02:00 Insulin Aspart (Novolog Insulin Pen) NOVOLOG *MODERATE* ALGORITHM WITH MEALS BEDTIME SC Last administered on 04/10/19 17:58; Admin Dose 2 UNIT; Start 03/31/19 at 21:00 Metoclopramide HCl (Reglan) 5 mg Q6H PRN IV NAUSEA; Start 04/01/19 at 09:35 Docusate Sodium/ Ferrous Fumarate (Angela-Sequels) 1 tab DAILY PO Last administered on 04/11/19 08:30; Admin Dose 1 TAB; Start 04/02/19 at 12:30; Stop 05/02/19 at 12:29 Alfuzosin HCl (Uroxatral) 10 mg HS PO Last administered on 04/10/19 21:14; Admin Dose 10 MG; Start 04/05/19 at 21:00 Zolpidem Tartrate (Ambien) 5 mg HS PRN PO INSOMNIA Last administered on 04/10/19 23:24; Admin Dose 5 MG; Start 04/05/19 at 21:30 Insulin Glargine (Lantus) 5 units DAILY@2000 SC Last administered on 04/10/19 20:04; Admin Dose 5 UNITS; Start 04/06/19 at 20:00 Nystatin (Nystatin Susp) 5 ml Q8 PO Last administered on 04/11/19 14:28; Admin Dose 5 ML; Start 04/06/19 at 22:00; Stop 04/13/19 at 21:59 Calcium Acetate (Phoslo) 667 mg WITH MEALS PO Last administered on 04/11/19 08:30; Admin Dose 667 MG; Start 04/07/19 at 11:30 Multivit/Ca Carb/ B Cmplx/FA/Prenat (Gilda-Jennifer) 1 tab DAILY PO Last administered on 04/11/19 08:30; Admin Dose 1 TAB; Start 04/07/19 at 09:00 Heparin Sodium (Porcine) (Heparin (1000 Units/ml)) 4,500 unit AFTER DIALYSIS CATHETER Last administered on 04/11/19 14:30; Admin Dose 4,500 UNIT; Start 04/07/19 at 16:00 Ranitidine HCl (Zantac) 150 mg QHS PO Last administered on 04/10/19 21:12; Admin Dose 150 MG; Start 04/08/19 at 21:00 Losartan Potassium (Cozaar) 25 mg BID PO Last administered on 04/10/19 21:20; Admin Dose 25 MG; Start 04/09/19 at 21:00 Aspirin (Aspirin) 81 mg DAILY PO Last administered on 04/11/19 08:30; Admin Dose 81 MG; Start 04/10/19 at 09:00 Carvedilol (Coreg) 25 mg BID PO Last administered on 7/26/19at 21:21; Admin Dose 25 MG; Start 04/09/19 at 21:00 Albumin Human 100 ml @ 100 mls/hr WITH DIALYSIS PRN IV SBP <90 DURING DIALYSIS; Start 04/11/19 at 12:30 Assessment/Plan Hospital Course (Demo Recall) Status post respiratory failure Renal failure on dialysis Peripheral arterial disease status post bypass Hypertension Episode of nonsustained V. tach but with preserved left ventricular ejection fraction echocardiogram January 2019 Diabetes Recommendations: Continue beta-jillian and titrate if needed. Continue losartan as tolerated Fluid management via hemodialysis as per nephrology Continue statin and aspirin therapy if no contraindication Thank you for his referral. We will continue to follow along with you until Dr. Cedeno returns on Saturday ALEX PALACIOS MD [facility] ALEX PALACIOS MD Apr 11, 2019 16:25
[2019-04-11] MEDS: HYDROCODONE/APAP (5/325) TAB PO PRN (16:50)
[2019-04-11] MEDS: EPOETIN ALFA-EPBX (ESRD) 10,000 UNIT/ML VIAL SC SCH (17:00)
--- NOTE | 2019-04-11 17:41 | CONS ---
Consult Date/Type/Reason Admit Date/Time Mar 23, 2019 at 06:13 Initial Consult Date 03/28/19 Type of Consultation: Pulm Requesting Provider: JOSE PARRY MD Date/Time of Note DATE: 04/11/19 TIME: 17:40 Subjective No overnight events. No dyspnea at rest. Objective Vitals Vital Signs Date Temp Pulse Resp B/P (MAP) Pulse Ox O2 O2 Flow FiO2 Time Delivery Rate 04/11/19 97.9 85 19 138/62 95 Nasal 2.0 15:37 (87) Cannula 04/11/19 09:42 Intake and Output 04/10/19 04/10/19 04/11/19 1515:00 23:00 07:00 IntakeIntake Total 450 ml 300 ml OutputOutput Total 450 ml BalanceBalance 450 ml -150 ml Exam NECK: Supple. No JVD or lymphadenopathy. CARDIAC EXAM: S1, S2. No added sounds or murmurs. CHEST: Diminished air entry bilaterally with rales ABDOMEN: Soft, nontender. No guarding or rebound. EXTREMITIES: No cyanosis, clubbing or edema. NEUROLOGIC: Generalized weakness. Results/Medications Result Diagram: 04/11/19 0555 04/11/19 0555 Results 24 hrs Laboratory Tests Test 04/10/19 20:00 04/10/19 21:11 04/11/19 05:55 04/11/19 07:40 Bedside Glucose 120 120 105 White Blood Count 7.1 # Red Blood Count 2.60 L Hemoglobin 8.0 L Hematocrit 24.7 L Mean Corpuscular 95.0 Volume Mean Corpuscular 30.8 Hemoglobin Mean Corpuscular 32.4 Hemoglobin Concent Red Cell 17.2 H Distribution Width Platelet Count 163 # Mean Platelet Volume 10.9 H Immature 0.800 H Granulocytes % Neutrophils % 80.4 H Lymphocytes % 6.9 L Monocytes % 7.2 Eosinophils % 4.6 Basophils % 0.1 Nucleated Red Blood 0.4 H Cells % Immature 0.060 H Granulocytes # Neutrophils # 5.7 Lymphocytes # 0.5 L Monocytes # 0.5 Eosinophils # 0.3 Basophils # 0.0 Nucleated Red Blood 0.0 Cells # Sodium Level 129 L Potassium Level 4.8 Chloride Level 96 L Carbon Dioxide Level 26 Anion Gap 7 Blood Urea Nitrogen 59 H Creatinine 4.28 #H Est Glomerular 14 L Filtrat Rate mL/min Glucose Level 63 #L Calcium Level 7.4 L Phosphorus Level 3.3 Test 04/11/19 08:20 04/11/19 11:53 04/11/19 16:57 Bedside Glucose 94 148 248 H Home Meds Active Scripts Amoxicillin/Potassium Clav (Amox-Clav 875-125 mg Tablet) 875-125 mg Tab, 1 TAB PO BID for 5 Days, #10 TAB 0 Refills Prov:JOSE PARRY MD 03/18/19 Linagliptin (TRADJENTA) 5 Mg Tablet, 5 MG PO DAILY for 30 Days, #30 TAB 3 Refills Prov:JOSE PARRY MD 03/18/19 Hydrocodone Bit-Acetaminophen (Hydrocodone Bit-APAP) 5-325MG Tablet, 1 TAB PO Q6H PRN for .MOD PAIN 4-6 for 5 Days, #20 TAB 0 Refills Prov:JOSE PARRY MD 03/18/19 Ferrous Sulfate* (Ferrous Sulfate*) 325 Mg Tabec, 325 MG PO TID for 30 Days, #90 TAB 2 Refills Prov:JOSE PARRY MD 03/18/19 Ranitidine Hcl* (Ranitidine Hcl*) 150 Mg Tablet, 150 MG PO DAILY for 30 Days, #30 TAB 5 Refills Prov:JOSE PARRY MD 02/02/19 Metoclopramide Hcl* (Metoclopramide Hcl*) 5 Mg Tablet, 5 MG PO AC MEALS for 30 Days, #90 TAB 5 Refills Prov:JOSE PARRY MD 02/02/19 Carvedilol* (Carvedilol*) 12.5 Mg Tablet, 12.5 MG PO BID for 30 Days, #60 TAB 5 Refills Prov:JOSE PARRY MD 02/02/19 Cilostazol* (Cilostazol*) 100 Mg Tablet, 50 MG PO BID for 30 Days, #30 TAB 5 Refills Prov:JOSE PARRY MD 02/02/19 Reported Medications Glycopyrrolate* (Glycopyrrolate*) 1 Mg Tablet, 1 MG PO BID, TAB 01/29/19 Amlodipine Besylate* (Norvasc*) 5 Mg Tablet, 5 MG PO DAILY, TAB 01/29/19 Ergocalciferol (Vitamin D2) (VITAMIN D2) 50,000 Unit Capsule, 69199 UNIT PO Q FRI, CAP 01/29/19 Atorvastatin* (Atorvastatin*) 40 Mg Tablet, 40 MG PO QHS, #30 TAB 01/29/19 Medications Current Medications Atorvastatin Calcium (Lipitor) 40 mg QHS PO Last administered on 04/10/19at 21:14; Admin Dose 40 MG; Start 03/23/19 at 21:00 Linagliptin (Tradjenta) 5 mg DAILY PO Last administered on 04/11/19at 08:30; Admin Dose 5 MG; Start 03/24/19 at 09:00 Ondansetron HCl (Zofran Inj) 4 mg Q4H PRN IV NAUSEA AND/OR VOMITING Last administered on 04/05/19at 06:29; Admin Dose 4 MG; Start 03/23/19 at 18:00 Hydromorphone HCl (Dilaudid) 2 mg Q4H PRN IV SEVERE PAIN LEVEL 7-10 Last administered on 04/09/19at 12:48; Admin Dose 2 MG; Start 03/23/19 at 18:00 Miscellaneous Information 1 ea NOTE XX ; Start 03/23/19 at 18:30 Glucose (Glutose) 15 gm Q15M PRN PO DECREASED GLUCOSE; Start 03/23/19 at 18:30 Glucose (Glutose) 22.5 gm Q15M PRN PO DECREASED GLUCOSE; Start 03/23/19 at 18:30 Dextrose (D50w Syringe) 25 ml Q15M PRN IV DECREASED GLUCOSE; Start 03/23/19 at 18:30 Dextrose (D50w Syringe) 50 ml Q15M PRN IV DECREASED GLUCOSE; Start 03/23/19 at 18:30 Glucagon (Glucagen) 1 mg Q15M PRN IM DECREASED GLUCOSE; Start 03/23/19 at 18:30 Glucose (Glutose) 15 gm Q15M PRN BUCCAL DECREASED GLUCOSE; Start 03/23/19 at 18:30 Epoetin Joseph-epbx (Retacrit (Esrd)) 10,000 unit TuThSa@1700 SC Last administered on 04/11/19at 17:00; Admin Dose 10,000 UNIT; Start 03/24/19 at 17:00 Acetaminophen/ Hydrocodone Bitart ([place] (5/325)) 1 tab Q6H PRN PO .MOD PAIN 4- 6 Last administered on 04/11/19at 16:50; Admin Dose 1 TAB; Start 03/24/19 at 22:30 Albumin Human 100 ml @ 100 mls/hr WITH DIALYSIS PRN IV SBP <90 DURING DIALYSIS Last administered on 04/11/19 12:37; Admin Dose 100 MLS/HR; Start 03/27/19 at 12:00 Albuterol/ Ipratropium (Duoneb) 3 ml Q4HWA RESP THERAPY HHN Last administered on 04/11/19 14:13; Admin Dose 3 ML; Start 03/27/19 at 21:00 Magnesium Hydroxide (Milk Of Mag) 30 ml DAILY PRN PO CONSTIPATION Last admin istered on 03/28/19 20:48; Admin Dose 30 ML; Start 03/28/19 at 15:30 Heparin Sodium (Porcine) (Heparin (5000 Units/1ml)) 5,000 unit BID SC Last administered on 04/11/19 08:36; Admin Dose 5,000 UNIT; Start 03/29/19 at 21:00 Metoclopramide HCl (Reglan) 5 mg Q6 IV Last administered on 04/11/19 16:59; Admin Dose 5 MG; Start 03/29/19 at 18:00 Diagnostic Test (Pha) (Accu-Chek) 1 ea 02 XX Last administered on 04/08/19 02:13; Admin Dose 1 EA; Start 04/01/19 at 02:00 Insulin Aspart (Novolog Insulin Pen) NOVOLOG *MODERATE* ALGORITHM WITH MEALS BEDTIME SC Last administered on 04/11/19 17:07; Admin Dose 6 UNIT; Start 03/31/19 at 21:00 Metoclopramide HCl (Reglan) 5 mg Q6H PRN IV NAUSEA; Start 04/01/19 at 09:35 Docusate Sodium/ Ferrous Fumarate (Angela-Sequels) 1 tab DAILY PO Last administered on 04/11/19 08:30; Admin Dose 1 TAB; Start 04/02/19 at 12:30; Stop 05/02/19 at 12:29 Alfuzosin HCl (Uroxatral) 10 mg HS PO Last administered on 04/10/19 21:14; Admin Dose 10 MG; Start 04/05/19 at 21:00 Zolpidem Tartrate (Ambien) 5 mg HS PRN PO INSOMNIA Last administered on 04/10/19 23:24; Admin Dose 5 MG; Start 04/05/19 at 21:30 Insulin Glargine (Lantus) 5 units DAILY@2000 SC Last administered on 04/10/19 20:04; Admin Dose 5 UNITS; Start 04/06/19 at 20:00 Nystatin (Nystatin Susp) 5 ml Q8 PO Last administered on 04/11/19 14:28; Admin Dose 5 ML; Start 04/06/19 at 22:00; Stop 04/13/19 at 21:59 Calcium Acetate (Phoslo) 667 mg WITH MEALS PO Last administered on 04/11/19 16:58; Admin Dose 667 MG; Start 04/07/19 at 11:30 Multivit/Ca Carb/ B Cmplx/FA/Prenat (Gilda-Jennifer) 1 tab DAILY PO Last administered on 04/11/19 08:30; Admin Dose 1 TAB; Start 04/07/19 at 09:00 Heparin Sodium (Porcine) (Heparin (1000 Units/ml)) 4,500 unit AFTER DIALYSIS CATHETER Last administered on 04/11/19 14:30; Admin Dose 4,500 UNIT; Start 04/07/19 at 16:00 Ranitidine HCl (Zantac) 150 mg QHS PO Last administered on 04/10/19 21:12; Admin Dose 150 MG; Start 04/08/19 at 21:00 Losartan Potassium (Cozaar) 25 mg BID PO Last administered on 04/10/19 21:20; Admin Dose 25 MG; Start 04/09/19 at 21:00 Aspirin (Aspirin) 81 mg DAILY PO Last administered on 04/11/19 08:30; Admin Dose 81 MG; Start 04/10/19 at 09:00 Carvedilol (Coreg) 25 mg BID PO Last administered on 04/10/19 21:21; Admin Dose 25 MG; Start 04/09/19 at 21:00 Albumin Human 100 ml @ 100 mls/hr WITH DIALYSIS PRN IV SBP <90 DURING DIEGO LYSIS; Start 04/11/19 at 12:30 Assessment/Plan Assessment/Plan (Daily) IMP: 1. Acute hypoxemic respiratory failure significant radiographic changes concerning for pulmonary edema versus opportunistic infection vs. organizing pneumonia 2. Acute on chronic renal failure, now requiring dialysis. 3. Peripheral vascular disease, status post revascularization. 4. Likely aspiration pneumonia as well. 5. Diabetes mellitus. 6. History of hypertension. 7. Benign prostatic hypertrophy. RECS: 1. Titrate FiO2 as tolerated 2. Aspiration precautions continue antibiotics per infectious diseases currently on meropenem 3. HD/UF as per Renal ANA IRVING MD Apr 11, 2019 17:41
[2019-04-11] MEDS: ATORVASTATIN 40 MG TAB PO SCH (20:34)
[2019-04-11] MEDS: RANITIDINE 150 MG TAB PO SCH (20:35)
[2019-04-11] MEDS: ALFUZOSIN (SR) 10 MG TAB PO SCH (20:35)
[2019-04-11] MEDS: ZOLPIDEM 5 MG TAB PO PRN (20:43)
[2019-04-11] MEDS: INSULIN GLARGINE [LANTus] (100 UNITS/ML) SYG SC SCH (21:20)
--- NOTE | 2019-04-11 23:50 | CONS ---
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 - h/o amputation of R 5th toe - s/p revision R TMA surgery 04/09/2019 - s/p R TMA with wound VAC placement 04/06/19 - PVD of RLE - h/o percutaneous intervention of RLE in the past - h/o occluded R popliteal artery in doppler in 01/2019 - s/p R SFA to posterior tibial bypass using in situ greater saphenous vein from R thigh and calf on 03/23/2019 - Pt completed meropenem (03/29/2019-04/04/2019), pip/tazo (03/25/19-03/28/19) and IV vancomycin (03/25/19-03/30/19) # other conditions - thrush noted 04/06/19-->resolved after PO fluconazole x 3 days (04/06/2019- 04/09/2019) and nystatin swish and spit x 7 days (04/06/19-04/13/2019) - DM - Hgb A1c 5.7% - former smoker - constipation recommendations: - monitor Pt off systemic antibiotics Consultation Date/Type/Reason Admit Date/Time Mar 23, 2019 at 06:13 Initial Consult Date 03/28/19 Type of Consult ID Requesting Provider: JOSE PARRY MD Date/Time of Note DATE: 04/11/19 TIME: 23:50 24 HR Interval Summary Free Text/Dictation Pt was asleep Exam/Review of Systems Exam Vitals Vital Signs Date Temp Pulse Resp B/P (MAP) Pulse Ox O2 O2 Flow FiO2 Time Delivery Rate 04/11/19 97 18 97 Nasal 2.0 28 20:40 Cannula 04/11/19 98.5 121/58 20:00 (79) Intake and Output 04/10/19 04/10/19 04/11/19 1515:00 23:00 07:00 IntakeIntake Total 450 ml 300 ml OutputOutput Total 450 ml BalanceBalance 450 ml -150 ml Constitutional: other (asleep) Psych: other (asleep) Head: normocephalic, atraumatic Eyes: nl lids ENMT: nl external ears & nose, nl nasal mucosa & septum, mucosa pink and moist Neck: other (not swollen) Respiratory: clear to auscultation, normal air movement Cardiovascular: regular rate and rhythm, nl pulses, other (the bypass site of RLE is well approximated with steri- strips and scabs) Gastrointestinal: No distended Musculoskeletal: nl extremities to inspection, other (s/p R TMA, dressed) Extremities: No edema Neurological: other (asleep) Skin: No rash or lesions Results Result Diagram: 04/11/19 0555 04/11/19 0555 Results 24hrs Laboratory Tests Test 04/11/19 05:55 04/11/19 07:40 04/11/19 08:20 04/11/19 11:53 White Blood Count 7.1 # Red Blood Count 2.60 L Hemoglobin 8.0 L Hematocrit 24.7 L Mean Corpuscular 95.0 Volume Mean Corpuscular 30.8 Hemoglobin Mean Corpuscular 32.4 Hemoglobin Concent Red Cell 17.2 H Distribution Width Platelet Count 163 # Mean Platelet Volume 10.9 H Immature 0.800 H Granulocytes % Neutrophils % 80.4 H Lymphocytes % 6.9 L Monocytes % 7.2 Eosinophils % 4.6 Basophils % 0.1 Nucleated Red Blood 0.4 H Cells % Immature 0.060 H Granulocytes # Neutrophils # 5.7 Lymphocytes # 0.5 L Monocytes # 0.5 Eosinophils # 0.3 Basophils # 0.0 Nucleated Red Blood 0.0 Cells # Sodium Level 129 L Potassium Level 4.8 Chloride Level 96 L Carbon Dioxide Level 26 Anion Gap 7 Blood Urea Nitrogen 59 H Creatinine 4.28 #H Est Glomerular 14 L Filtrat Rate mL/min Glucose Level 63 #L Calcium Level 7.4 L Phosphorus Level 3.3 Bedside Glucose 105 94 148 Test 04/11/19 16:57 04/11/19 20:32 Bedside Glucose 248 H 130 Medications Medication Current Medications Atorvastatin Calcium (Lipitor) 40 mg QHS PO Last administered on 04/11/19at 20:34; Admin Dose 40 MG; Start 03/23/19 at 21:00 Linagliptin (Tradjenta) 5 mg DAILY PO Last administered on 04/11/19 08:30; Adm in Dose 5 MG; Start 03/24/19 at 09:00 Ondansetron HCl (Zofran Inj) 4 mg Q4H PRN IV NAUSEA AND/OR VOMITING Last administered on 04/05/19 06:29; Admin Dose 4 MG; Start 03/23/19 at 18:00 Hydromorphone HCl (Dilaudid) 2 mg Q4H PRN IV SEVERE PAIN LEVEL 7-10 Last administered on 04/09/19 12:48; Admin Dose 2 MG; Start 03/23/19 at 18:00 Miscellaneous Information 1 ea NOTE XX ; Start 03/23/19 at 18:30 Glucose (Glutose) 15 gm Q15M PRN PO DECREASED GLUCOSE; Start 03/23/19 at 18:30 Glucose (Glutose) 22.5 gm Q15M PRN PO DECREASED GLUCOSE; Start 03/23/19 at 18:30 Dextrose (D50w Syringe) 25 ml Q15M PRN IV DECREASED GLUCOSE; Start 03/23/19 at 18:30 Dextrose (D50w Syringe) 50 ml Q15M PRN IV DECREASED GLUCOSE; Start 03/23/19 at 18:30 Glucagon (Glucagen) 1 mg Q15M PRN IM DECREASED GLUCOSE; Start 03/23/19 at 18:30 Glucose (Glutose) 15 gm Q15M PRN BUCCAL DECREASED GLUCOSE; Start 03/23/19 at 18:30 Epoetin Joseph-epbx (Retacrit (Esrd)) 10,000 unit TuThSa@1700 SC Last administered on 04/11/19 17:00; Admin Dose 10,000 UNIT; Start 03/24/19 at 17:00 Acetaminophen/ Hydrocodone Bitart ([place] (5/325)) 1 tab Q6H PRN PO .MOD PAIN 4- 6 Last administered on 04/11/19at 16:50; Admin Dose 1 TAB; Start 03/24/19 at 22:30 Albumin Human 100 ml @ 100 mls/hr WITH DIALYSIS PRN IV SBP <90 DURING DIALYSIS Last administered on 04/11/19at 12:37; Admin Dose 100 MLS/HR; Start 03/27/19 at 12:00 Albuterol/ Ipratropium (Duoneb) 3 ml Q4HWA RESP THERAPY HHN Last administered on 04/11/19 20:39; Admin Dose 3 ML; Start 03/27/19 at 21:00 Magnesium Hydroxide (Milk Of Mag) 30 ml DAILY PRN PO CONSTIPATION Last administered on 03/28/19 20:48; Admin Dose 30 ML; Start 03/28/19 at 15:30 Heparin Sodium (Porcine) (Heparin (5000 Units/1ml)) 5,000 unit BID SC Last administered on 04/11/19 21:20; Admin Dose 5,000 UNIT; Start 03/29/19 at 21:00 Metoclopramide HCl (Reglan) 5 mg Q6 IV Last administered on 04/11/19 16:59; Admin Dose 5 MG; Start 03/29/19 at 18:00 Diagnostic Test (Pha) (Accu-Chek) 1 ea 02 XX Last administered on 04/08/19 02:13; Admin Dose 1 EA; Start 04/01/19 at 02:00 Insulin Aspart (Novolog Insulin Pen) NOVOLOG *MODERATE* ALGORITHM WITH MEALS BEDTIME SC Last administered on 04/11/19 17:07; Admin Dose 6 UNIT; Start 03/31/19 at 21:00 Metoclopramide HCl (Reglan) 5 mg Q6H PRN IV NAUSEA; Start 04/01/19 at 09:35 Docusate Sodium/ Ferrous Fumarate (Angela-Sequels) 1 tab DAILY PO Last administered on 04/11/19 08:30; Admin Dose 1 TAB; Start 04/02/19 at 12:30; Stop 05/02/19 at 12:29 Alfuzosin HCl (Uroxatral) 10 mg HS PO Last administered on 04/11/19 20:35; Admin Dose 10 MG; Start 04/05/19 at 21:00 Zolpidem Tartrate (Ambien) 5 mg HS PRN PO INSOMNIA Last administered on 04/11/19 20:43; Admin Dose 5 MG; Start 04/05/19 at 21:30 Insulin Glargine (Lantus) 5 units DAILY@2000 SC Last administered on 04/11/19 21:20; Admin Dose 5 UNITS; Start 04/06/19 at 20:00 Nystatin (Nystatin Susp) 5 ml Q8 PO Last administered on 04/11/19 20:48; Admin Dose 5 ML; Start 04/06/19 at 22:00; Stop 04/13/19 at 21:59 Calcium Acetate (Phoslo) 667 mg WITH MEALS PO Last administered on 04/11/19 16:58; Admin Dose 667 MG; Start 04/07/19 at 11:30 Multivit/Ca Carb/ B Cmplx/FA/Prenat (Gilda-Jennifer) 1 tab DAILY PO Last administer ed on 04/11/19 08:30; Admin Dose 1 TAB; Start 04/07/19 at 09:00 Heparin Sodium (Porcine) (Heparin (1000 Units/ml)) 4,500 unit AFTER DIALYSIS CATHETER Last administered on 04/11/19 14:30; Admin Dose 4,500 UNIT; Start 04/07/19 at 16:00 Ranitidine HCl (Zantac) 150 mg QHS PO Last administered on 04/11/19 20:35; Admin Dose 150 MG; Start 04/08/19 at 21:00 Losartan Potassium (Cozaar) 25 mg BID PO Last administered on 04/11/19 20:34; Admin Dose 25 MG; Start 04/09/19 at 21:00 Aspirin (Aspirin) 81 mg DAILY PO Last administered on 04/11/19 08:30; Admin Dose 81 MG; Start 04/10/19 at 09:00 Carvedilol (Coreg) 25 mg BID PO Last administered on 04/11/19 20:34; Admin Dose 25 MG; Start 04/09/19 at 21:00 Albumin Human 100 ml @ 100 mls/hr WITH DIALYSIS PRN IV SBP <90 DURING DIALYSIS; Start 04/11/19 at 12:30 LUDMILA ANTOINE M.D. Apr 11, 2019 23:50
[2019-04-12] VITALS: BP 118/58; PULSE 90; PULSE 92; RESP 19
[2019-04-12] MEDS: METOCLOPRAMIDE 10 MG INJ IV SCH ×4 (01:06→17:13)
[2019-04-12] MEDS: ACCU-CHEK XX SCH (02:00)
[2019-04-12 04:00] VITALS: BP 116/70; PULSE 74; PULSE 79; RESP 18
[2019-04-12] MEDS: NYSTATIN SUSP 5 ML CUP PO SCH ×3 (05:27→21:58)
[2019-04-12 07:44] VITALS: BP 120/60; PULSE 80; RESP 18
[2019-04-12] MEDS: INSULIN ASPART [NOVOLOG] 3 ML PEN SC SCH ×4 (07:55→21:00)
[2019-04-12] MEDS: MULTIVIT/CA CARB/B CMPLX/FA TAB PO SCH (08:05)
[2019-04-12] MEDS: CALCIUM ACETATE 667 MG CAP PO SCH (08:06)
[2019-04-12] MEDS: FERROUS FUMARATE (SR) TAB PO SCH (08:06)
[2019-04-12] MEDS: LINAGLIPTIN 5 MG TABLET PO SCH (08:06)
[2019-04-12] MEDS: ASPIRIN 81 MG TAB PO SCH (08:07)
[2019-04-12] MEDS: LOSARTAN 25 MG TAB PO SCH ×2 (08:07→21:59)
[2019-04-12] MEDS: HEPARIN 5,000 UNIT/1 ML VIAL SC SCH ×2 (08:08→22:18)
[2019-04-12] MEDS: ALBUTEROL/IPRATROPIUM (NEB) 3 ML AMP HHN SCH ×4 (09:03→21:18)
[2019-04-12 11:24] VITALS: BP 109/53; PULSE 73; RESP 18
--- NOTE | 2019-04-12 12:12 | PN ---
Date/Time of Note Date/Time of Note DATE: 04/12/19 TIME: 12:09 Assessment/Plan VTE Prophylaxis Risk score (from Ns)>0 risk: 3 SCD applied (from [facility] [place] No SCD contraindicated: bilateral LE trauma Pharmacological prophylaxis: heparin Lines/Catheters IV C[facility]ter Type (from [facility] [place] [facility] Urinary Cath still in place: No Assessment/Plan Problems: (1) Diabetes mellitus type 2 with complications Status: Chronic Comment: Diabetic control is adequate at the present time. Continue current treatment (2) End stage renal disease on dialysis due to type 2 diabetes mellitus Status: Chronic Comment: Doing well on his current medication regimen. Continue with hemodialysis. I am verbally told by the nurses at the case worker has verbally told them that they cannot get the dialysis set up over the weekend and we have to explore that tomorrow. (3) Peripheral vascular disease of lower extremity Status: Chronic Comment: Is post revascularization successfully and then subsequent transm etatarsal amputation of the infected tissues (4) Status post transmetatarsal amputation of right foot Onset Date: ~ 04/06/2019 Status: Acute Comment: As above and stable postop (5) Benign prostatic hyperplasia with urinary obstruction Status: Chronic Comment: On full treatment the alpha blockade and 5 alpha reductase inhibitor (6) Essential (primary) hypertension Status: Chronic Comment: Adequate control (7) Anemia Status: Chronic Comment: He actually has a bit of an iron deficiency anemia we will go ahead and give him iron for this Qualifiers: Anemia type: due to chronic kidney disease Result Diagram: 04/12/19 0631 04/12/19 0631 Results 24hrs Laboratory Tests Test 04/11/19 16:57 04/11/19 20:32 04/12/19 06:31 04/12/19 08:04 Bedside Glucose 248 H 130 91 White Blood Count 5.5 # Red Blood Count 2.60 L Hemoglobin 7.7 L Hematocrit 25.1 L Mean Corpuscular 96.5 Volume Mean Corpuscular 29.6 Hemoglobin Mean Corpuscular 30.7 L Hemoglobin Concent Red Cell 17.9 H Distribution Width Platelet Count 145 Mean Platelet Volume 10.9 H Immature 1.300 H Granulocytes % Neutrophils % 78.1 H Lymphocytes % 8.2 L Monocytes % 8.2 Eosinophils % 4.2 Basophils % 0.0 Nucleated Red Blood 0.4 H Cells % Immature 0.070 H Granulocytes # Neutrophils # 4.3 Lymphocytes # 0.5 L Monocytes # 0.5 Eosinophils # 0.2 Basophils # 0.0 Nucleated Red Blood 0.0 Cells # Sodium Level 132 L Potassium Level 5.1 Chloride Level 101 Carbon Dioxide Level 28 Anion Gap 3 L Blood Urea Nitrogen 36 #H Creatinine 3.08 #H Est Glomerular 20 L Filtrat Rate mL/min Glucose Level 95 Calcium Level 7.4 L Phosphorus Level 2.5 Iron Level 27 L Total Iron Binding 134 L Capacity Percent Iron 20 L Saturation Ferritin 393.0 H Total Bilirubin 0.4 Direct Bilirubin 0.00 Indirect Bilirubin 0.4 Aspartate Amino 27 Transf (AST/SGOT) Alanine 18 Aminotransferase (AL T/SGPT) Alkaline Phosphatase 77 Total Protein 4.6 L Albumin 2.4 L Globulin 2.20 Albumin/Globulin 1.09 Ratio Test 04/12/19 12:07 Bedside Glucose 202 CC: ; Subjective 24 Hr Interval Summary Free Text/Dictation Patient reports he is feeling relatively well. No new complaints Constitutional: no complaints Respiratory: no complaints Cardiovascular: no complaints Gastrointestinal: no complaints Genitourinary: no complaints Exam/Review of Systems Exam Vitals Vital Signs Date Temp Pulse Resp B/P (MAP) Pulse Ox O2 O2 Flow FiO2 Time Delivery Rate 04/12/19 98.0 73 18 109/53 98 11:24 (71) 04/12/19 Nasal 2.0 09:09 Cannula 04/11/19 28 20:40 Intake and Output 04/11/19 04/11/19 04/12/19 1515:00 23:00 07:00 IntakeIntake Total 900 ml 500 ml OutputOutput Total 2600 ml 450 ml BalanceBalance -2600 ml 900 ml 50 ml Constitutional: alert, oriented Respiratory: clear to auscultation, normal air movement Cardiovascular: regular rate and rhythm, nl pulses Gastrointestinal: soft, nl liver, spleen, non-tender Results Results 24hrs Laboratory Tests Test 04/11/19 16:57 04/11/19 20:32 04/12/19 06:31 04/12/19 08:04 Bedside Glucose 248 H 130 91 White Blood Count 5.5 # Red Blood Count 2.60 L Hemoglobin 7.7 L Hematocrit 25.1 L Mean Corpuscular 96.5 Volume Mean Corpuscular 29.6 Hemoglobin Mean Corpuscular 30.7 L Hemoglobin Concent Red Cell 17.9 H Distribution Width Platelet Count 145 Mean Platelet Volume 10.9 H Immature 1.300 H Granulocytes % Neutrophils % 78.1 H Lymphocytes % 8.2 L Monocytes % 8.2 Eosinophils % 4.2 Basophils % 0.0 Nucleated Red Blood 0.4 H Cells % Immature 0.070 H Granulocytes # Neutrophils # 4.3 Lymphocytes # 0.5 L Monocytes # 0.5 Eosinophils # 0.2 Basophils # 0.0 Nucleated Red Blood 0.0 Cells # Sodium Level 132 L Potassium Level 5.1 Chloride Level 101 Carbon Dioxide Level 28 Anion Gap 3 L Blood Urea Nitrogen 36 #H Creatinine 3.08 #H Est Glomerular 20 L Filtrat Rate mL/min Glucose Level 95 Calcium Level 7.4 L Phosphorus Level 2.5 Iron Level 27 L Total Iron Binding 134 L Capacity Percent Iron 20 L Saturation Ferritin 393.0 H Total Bilirubin 0.4 Direct Bilirubin 0.00 Indirect Bilirubin 0.4 Aspartate Amino 27 Transf (AST/SGOT) Alanine 18 Aminotransferase (AL T/SGPT) Alkaline Phosphatase 77 Total Protein 4.6 L Albumin 2.4 L Globulin 2.20 Albumin/Globulin 1.09 Ratio Test 04/12/19 12:07 Bedside Glucose 202 Medications Medication Current Medications Atorvastatin Calcium (Lipitor) 40 mg QHS PO Last administered on 04/11/19at 20:34; Admin Dose 40 MG; Start 03/23/19 at 21:00 Linagliptin (Tradjenta) 5 mg DAILY PO Last administered on 04/12/19 08:06; Admin Dose 5 MG; Start 03/24/19 at 09:00 Ondansetron HCl (Zofran Inj) 4 mg Q4H PRN IV NAUSEA AND/OR VOMITING Last administered on 04/05/19at 06:29; Admin Dose 4 MG; Start 03/23/19 at 18:00 Hydromorphone HCl (Dilaudid) 2 mg Q4H PRN IV SEVERE PAIN LEVEL 7-10 Last administered on 04/09/19at 12:48; Admin Dose 2 MG; Start 03/23/19 at 18:00 Miscellaneous Information 1 ea NOTE XX ; Start 03/23/19 at 18:30 Glucose (Glutose) 15 gm Q15M PRN PO DECREASED GLUCOSE; Start 03/23/19 at 18:30 Glucose (Glutose) 22.5 gm Q15M PRN PO DECREASED GLUCOSE; Start 03/23/19 at 18:30 Dextrose (D50w Syringe) 25 ml Q15M PRN IV DECREASED GLUCOSE; Start 03/23/19 at 18:30 Dextrose (D50w Syringe) 50 ml Q15M PRN IV DECREASED GLUCOSE; Start 03/23/19 at 18:30 Glucagon (Glucagen) 1 mg Q15M PRN IM DECREASED GLUCOSE; Start 03/23/19 at 18:30 Glucose (Glutose) 15 gm Q15M PRN BUCCAL DECREASED GLUCOSE; Start 03/23/19 at 18:30 Epoetin Joseph-epbx (Retacrit (Esrd)) 10,000 unit TuThSa@1700 SC Last administered on 04/11/19 17:00; Admin Dose 10,000 UNIT; Start 03/24/19 at 17:00 Acetaminophen/ Hydrocodone Bitart ([place] (5/325)) 1 tab Q6H PRN PO .MOD PAIN 4- 6 Last administered on 04/11/19at 16:50; Admin Dose 1 TAB; Start 03/24/19 at 22:30 Albumin Human 100 ml @ 100 mls/hr WITH DIALYSIS PRN IV SBP <90 DURING DIALYSIS Last administered on 04/11/19at 12:37; Admin Dose 100 MLS/HR; Start 03/27/19 at 12:00 Albuterol/ Ipratropium (Duoneb) 3 ml Q4HWA RESP THERAPY HHN Last administered on 04/12/19 09:03; Admin Dose 3 ML; Start 03/27/19 at 21:00 Heparin Sodium (Porcine) (Heparin (5000 Units/1ml)) 5,000 unit BID SC Last administered on 04/12/19at 08:08; Admin Dose 5,000 UNIT; Start 03/29/19 at 21:00 Metoclopramide HCl (Reglan) 5 mg Q6 IV Last administered on 04/12/19 05:27; Admin Dose 5 MG; Start 03/29/19 at 18:00 Diagnostic Test (Pha) (Accu-Chek) 1 ea 02 XX Last administered on 04/08/19at 02:13; Admin Dose 1 EA; Start 04/01/19 at 02:00 Insulin Aspart (Novolog Insulin Pen) NOVOLOG *MODERATE* ALGORITHM WITH MEALS BEDTIME SC Last administered on 04/11/19 17:07; Admin Dose 6 UNIT; Start 03/31/19 at 21:00 Metoclopramide HCl (Reglan) 5 mg Q6H PRN IV NAUSEA; Start 04/01/19 at 09:35 Docusate Sodium/ Ferrous Fumarate (Angela-Sequels) 1 tab DAILY PO Last administered on 04/12/19 08:06; Admin Dose 1 TAB; Start 04/02/19 at 12:30; Stop 05/02/19 at 12:29 Alfuzosin HCl (Uroxatral) 10 mg HS PO Last administered on 04/11/19 20:35; Admin Dose 10 MG; Start 04/05/19 at 21:00 Zolpidem Tartrate (Ambien) 5 mg HS PRN PO INSOMNIA Last administered on 04/11/19 20:43; Admin Dose 5 MG; Start 04/05/19 at 21:30 Insulin Glargine (Lantus) 5 units DAILY@2000 SC Last administered on 04/11/19 21:20; Admin Dose 5 UNITS; Start 04/06/19 at 20:00 Nystatin (Nystatin Susp) 5 ml Q8 PO Last administered on 04/12/19 05:27; Admin Dose 5 ML; Start 04/06/19 at 22:00; Stop 04/13/19 at 21:59 Multivit/Ca Carb/ B Cmplx/FA/Prenat (Gilda-Jennifer) 1 tab DAILY PO Last administered on 04/12/19 08:05; Admin Dose 1 TAB; Start 04/07/19 at 09:00 Heparin Sodium (Porcine) (Heparin (1000 Units/ml)) 4,500 unit AFTER DIALYSIS CATHETER Last administered on 04/11/19 14:30; Admin Dose 4,500 UNIT; Start 04/07/19 at 16:00 Ranitidine HCl (Zantac) 150 mg QHS PO Last administered on 04/11/19 20:35; Admin Dose 150 MG; Start 04/08/19 at 21:00 Losartan Potassium (Cozaar) 25 mg BID PO Last administered on 04/12/19 08:07; Admin Dose 25 MG; Start 04/09/19 at 21:00 Aspirin (Aspirin) 81 mg DAILY PO Last administered on 04/12/19 08:07; Admin Dose 81 MG; Start 04/10/19 at 09:00 Carvedilol (Coreg) 25 mg BID PO Last administered on 04/12/19at 08:07; Admin Dose 25 MG; Start 04/09/19 at 21:00 Albumin Human 100 ml @ 100 mls/hr WITH DIALYSIS PRN IV SBP <90 DURING DIALYSIS; Start 04/11/19 at 12:30 Ferric Sodium Gluconate Complex 125 mg/Sodium Chloride 100 ml @ 100 mls/hr DAILY@1300 IVPB ; Start 04/12/19 at 13:00; Stop 04/14/19 at 13:59; Status KYLEE RODRIGUEZ MD Apr 12, 2019 12:12
--- NOTE | 2019-04-12 13:01 | CONS ---
Assessment/Plan Assessment/Plan Assessment/Plan (Daily) 1. ESRD: for hd in am. arrangements for outpatient hd in progress, low hos noted and binders held 2. HTN: stable 3. Anemia: hb dropped again. check stool ob. cont epogen and consider prbc with hd in am if further drop 4.hyperlipidemia: on statin 5. DM, sugar well controlled 6. Post op revascularization right leg, gangrene and toe amputation and wound closure Consultation Date/Type/Reason Admit Date/Time Mar 23, 2019 at 06:13 Initial Consult Date 03/28/19 Requesting Provider: JOSE PARRY MD Date/Time of Note DATE: 04/12/19 TIME: 12:59 24 HR Interval Summary Free Text/Dictation doing well. no complaints Exam/Review of Systems Exam Vitals Vital Signs Date Temp Pulse Resp B/P (MAP) Pulse Ox O2 O2 Flow FiO2 Time Delivery Rate 04/12/19 98.0 73 18 109/53 98 11:24 (71) 04/12/19 Nasal 2.0 09:09 Cannula 04/11/19 28 20:40 Intake and Output 04/11/19 04/11/19 04/12/19 1515:00 23:00 07:00 IntakeIntake Total 900 ml 500 ml OutputOutput Total 2600 ml 450 ml BalanceBalance -2600 ml 900 ml 50 ml Constitutional: alert, oriented Psych: no complaints Head: normocephalic Neck: supple Respiratory: diminished breath sounds Cardiovascular: regular rate and rhythm, edema Results Result Diagram: 04/12/19 0631 04/12/19 0631 Results 24hrs Laboratory Tests Test 04/11/19 16:57 04/11/19 20:32 04/12/19 06:31 04/12/19 08:04 Bedside Glucose 248 H 130 91 White Blood Count 5.5 # Red Blood Count 2.60 L Hemoglobin 7.7 L Hematocrit 25.1 L Mean Corpuscular 96.5 Volume Mean Corpuscular 29.6 Hemoglobin Mean Corpuscular 30.7 L Hemoglobin Concent Red Cell 17.9 H Distribution Width Platelet Count 145 Mean Platelet Volume 10.9 H Immature 1.300 H Granulocytes % Neutrophils % 78.1 H Lymphocytes % 8.2 L Monocytes % 8.2 Eosinophils % 4.2 Basophils % 0.0 Nucleated Red Blood 0.4 H Cells % Immature 0.070 H Granulocytes # Neutrophils # 4.3 Lymphocytes # 0.5 L Monocytes # 0.5 Eosinophils # 0.2 Basophils # 0.0 Nucleated Red Blood 0.0 Cells # Sodium Level 132 L Potassium Level 5.1 Chloride Level 101 Carbon Dioxide Level 28 Anion Gap 3 L Blood Urea Nitrogen 36 #H Creatinine 3.08 #H Est Glomerular 20 L Filtrat Rate mL/min Glucose Level 95 Calcium Level 7.4 L Phosphorus Level 2.5 Iron Level 27 L Total Iron Binding 134 L Capacity Percent Iron 20 L Saturation Ferritin 393.0 H Total Bilirubin 0.4 Direct Bilirubin 0.00 Indirect Bilirubin 0.4 Aspartate Amino 27 Transf (AST/SGOT) Alanine 18 Aminotransferase (AL T/SGPT) Alkaline Phosphatase 77 Total Protein 4.6 L Albumin 2.4 L Globulin 2.20 Albumin/Globulin 1.09 Ratio Test 04/12/19 12:07 Bedside Glucose 202 Medications Medication Current Medications Atorvastatin Calcium (Lipitor) 40 mg QHS PO Last administered on 04/11/19at 20:34; Admin Dose 40 MG; Start 03/23/19 at 21:00 Linagliptin (Tradjenta) 5 mg DAILY PO Last administered on 04/12/19at 08:06; Admin Dose 5 MG; Start 03/24/19 at 09:00 Ondansetron HCl (Zofran Inj) 4 mg Q4H PRN IV NAUSEA AND/OR VOMITING Last administered on 04/05/19at 06:29; Admin Dose 4 MG; Start 03/23/19 at 18:00 Hydromorphone HCl (Dilaudid) 2 mg Q4H PRN IV SEVERE PAIN LEVEL 7-10 Last admini stered on 04/09/19at 12:48; Admin Dose 2 MG; Start 03/23/19 at 18:00 Miscellaneous Information 1 ea NOTE XX ; Start 03/23/19 at 18:30 Glucose (Glutose) 15 gm Q15M PRN PO DECREASED GLUCOSE; Start 03/23/19 at 18:30 Glucose (Glutose) 22.5 gm Q15M PRN PO DECREASED GLUCOSE; Start 03/23/19 at 18:30 Dextrose (D50w Syringe) 25 ml Q15M PRN IV DECREASED GLUCOSE; Start 03/23/19 at 18:30 Dextrose (D50w Syringe) 50 ml Q15M PRN IV DECREASED GLUCOSE; Start 03/23/19 at 18:30 Glucagon (Glucagen) 1 mg Q15M PRN IM DECREASED GLUCOSE; Start 03/23/19 at 18:30 Glucose (Glutose) 15 gm Q15M PRN BUCCAL DECREASED GLUCOSE; Start 03/23/19 at 18:30 Epoetin Joseph-epbx (Retacrit (Esrd)) 10,000 unit TuThSa@1700 SC Last adminis tered on 04/11/19 17:00; Admin Dose 10,000 UNIT; Start 03/24/19 at 17:00 Acetaminophen/ Hydrocodone Bitart ([place] (5/325)) 1 tab Q6H PRN PO .MOD PAIN 4- 6 Last administered on 04/11/19 16:50; Admin Dose 1 TAB; Start 03/24/19 at 22:30 Albuterol/ Ipratropium (Duoneb) 3 ml Q4HWA RESP THERAPY HHN Last administered on 04/12/19 09:03; Admin Dose 3 ML; Start 03/27/19 at 21:00 Heparin Sodium (Porcine) (Heparin (5000 Units/1ml)) 5,000 unit BID SC Last administered on 04/12/19 08:08; Admin Dose 5,000 UNIT; Start 03/29/19 at 21:00 Metoclopramide HCl (Reglan) 5 mg Q6 IV Last administered on 04/12/19 12:11; Admin Dose 5 MG; Start 03/29/19 at 18:00 Diagnostic Test (Pha) (Accu-Chek) 1 ea 02 XX Last administered on 04/08/19 02:13; Admin Dose 1 EA; Start 04/01/19 at 02:00 Insulin Aspart (Novolog Insulin Pen) NOVOLOG *MODERATE* ALGORITHM WITH MEALS BEDTIME SC Last administered on 04/12/19 12:15; Admin Dose 4 UNIT; Start 03/31/19 at 21:00 Metoclopramide HCl (Reglan) 5 mg Q6H PRN IV NAUSEA; Start 04/01/19 at 09:35 Docusate Sodium/ Ferrous Fumarate (Angela-Sequels) 1 tab DAILY PO Last admin istered on 04/12/19 08:06; Admin Dose 1 TAB; Start 04/02/19 at 12:30; Stop 05/02/19 at 12:29 Alfuzosin HCl (Uroxatral) 10 mg HS PO Last administered on 04/11/19 20:35; Admin Dose 10 MG; Start 04/05/19 at 21:00 Zolpidem Tartrate (Ambien) 5 mg HS PRN PO INSOMNIA Last administered on 04/11/19 20:43; Admin Dose 5 MG; Start 04/05/19 at 21:30 Insulin Glargine (Lantus) 5 units DAILY@2000 SC Last administered on 04/11/19 21:20; Admin Dose 5 UNITS; Start 04/06/19 at 20:00 Nystatin (Nystatin Susp) 5 ml Q8 PO Last administered on 04/12/19 05:27; Admin Dose 5 ML; Start 04/06/19 at 22:00; Stop 04/13/19 at 21:59 Multivit/Ca Carb/ B Cmplx/FA/Prenat (Gilda-Jennifer) 1 tab DAILY PO Last administered on 04/12/19 08:05; Admin Dose 1 TAB; Start 04/07/19 at 09:00 Heparin Sodium (Porcine) (Heparin (1000 Units/ml)) 4,500 unit AFTER DIALYSIS CATHETER Last administered on 04/11/19 14:30; Admin Dose 4,500 UNIT; Start 04/07/19 at 16:00 Ranitidine HCl (Zantac) 150 mg QHS PO Last administered on 04/11/19 20:35; Admin Dose 150 MG; Start 04/08/19 at 21:00 Losartan Potassium (Cozaar) 25 mg BID PO Last administered on 04/12/19 08:07; Admin Dose 25 MG; Start 04/09/19 at 21:00 Aspirin (Aspirin) 81 mg DAILY PO Last administered on 04/12/19 08:07; Admin Dose 81 MG; Start 04/10/19 at 09:00 Carvedilol (Coreg) 25 mg BID PO Last administered on 04/12/19 08:07; Admin Dose 25 MG; Start 04/09/19 at 21:00 Albumin Human 100 ml @ 100 mls/hr WITH DIALYSIS PRN IV SBP <90 DURING DIALYSIS; Start 04/11/19 at 12:30 Ferric Sodium Gluconate Complex 125 mg/Sodium Chloride 100 ml @ 100 mls/hr DAILY@1300 IVPB ; Start 04/12/19 at 13:30; Stop 04/14/19 at 13:59 BRENDA GRANDE MD Apr 12, 2019 13:01
[2019-04-12] MEDS: SOD FERRIC GLUC COMPLX 125 MG in SOD CHLORIDE 0.9% 100 ML IVPB SCH (13:49)
--- NOTE | 2019-04-12 14:00 | CONS ---
Consult Date/Type/Reason Admit Date/Time Mar 23, 2019 at 06:13 Initial Consult Date 03/28/19 Type of Consultation: cv Requesting Provider: JOSE PARRY MD Date/Time of Note DATE: 04/12/19 TIME: 13:59 Subjective Cardiology follow-up progress note Subjective: Case discussed with staff and telemetry was reviewed. Patient with very short episodes of asymptomatic ventricular tachycardia overnight Patient denies any chest pain or pressure to me denies any PND orthopnea or shortness of breath to me Objective: General: no acute distress HEENT: NC/AT. pupils are equal. round. NECK: NO JVD. no stridor. CV: RRR. systolic murmur; no gallop or rubs. PULM: no wheezing or rhonchi. GI: SOFT, NT, ND, no rebound or guarding Extremity: Right foot IN dressing neuro: awake and alert, OX3. Psych: calm and pleasant rectal: deferred : normal Right foot x-ray shows: Stable postsurgical changes with interval removal of a wound vac. Forefoot soft tissue swelling and several small locules of air remaining. Objective Vitals Vital Signs Date Temp Pulse Resp B/P (MAP) Pulse Ox O2 O2 Flow FiO2 Time Delivery Rate 04/12/19 77 14 95 21 13:44 04/12/19 98.0 109/53 11:24 (71) 04/12/19 Nasal 2.0 09:09 Cannula Intake and Output 04/11/19 04/11/19 04/12/19 1515:00 23:00 07:00 IntakeIntake Total 900 ml 500 ml OutputOutput Total 2600 ml 450 ml BalanceBalance -2600 ml 900 ml 50 ml Results/Medications Result Diagram: 04/12/19 0631 04/12/19 0631 Results 24 hrs Laboratory Tests Test 04/11/19 16:57 04/11/19 20:32 04/12/19 06:31 04/12/19 08:04 Bedside Glucose 248 H 130 91 White Blood Count 5.5 # Red Blood Count 2.60 L Hemoglobin 7.7 L Hematocrit 25.1 L Mean Corpuscular 96.5 Volume Mean Corpuscular 29.6 Hemoglobin Mean Corpuscular 30.7 L Hemoglobin Concent Red Cell 17.9 H Distribution Width Platelet Count 145 Mean Platelet Volume 10.9 H Immature 1.300 H Granulocytes % Neutrophils % 78.1 H Lymphocytes % 8.2 L Monocytes % 8.2 Eosinophils % 4.2 Basophils % 0.0 Nucleated Red Blood 0.4 H Cells % Immature 0.070 H Granulocytes # Neutrophils # 4.3 Lymphocytes # 0.5 L Monocytes # 0.5 Eosinophils # 0.2 Basophils # 0.0 Nucleated Red Blood 0.0 Cells # Sodium Level 132 L Potassium Level 5.1 Chloride Level 101 Carbon Dioxide Level 28 Anion Gap 3 L Blood Urea Nitrogen 36 #H Creatinine 3.08 #H Est Glomerular 20 L Filtrat Rate mL/min Glucose Level 95 Calcium Level 7.4 L Phosphorus Level 2.5 Iron Level 27 L Total Iron Binding 134 L Capacity Percent Iron 20 L Saturation Ferritin 393.0 H Total Bilirubin 0.4 Direct Bilirubin 0.00 Indirect Bilirubin 0.4 Aspartate Amino 27 Transf (AST/SGOT) Alanine 18 Aminotransferase (AL T/SGPT) Alkaline Phosphatase 77 Total Protein 4.6 L Albumin 2.4 L Globulin 2.20 Albumin/Globulin 1.09 Ratio Test 04/12/19 12:07 Bedside Glucose 202 Home Meds Active Scripts Amoxicillin/Potassium Clav (Amox-Clav 875-125 mg Tablet) 875-125 mg Tab, 1 TAB PO BID for 5 Days, #10 TAB 0 Refills Prov:JOSE PARRY MD 03/18/19 Linagliptin (TRADJENTA) 5 Mg Tablet, 5 MG PO DAILY for 30 Days, #30 TAB 3 Refills Prov:JOSE PARRY MD 03/18/19 Hydrocodone Bit-Acetaminophen (Hydrocodone Bit-APAP) 5-325MG Tablet, 1 TAB PO Q6H PRN for .MOD PAIN 4-6 for 5 Days, #20 TAB 0 Refills Prov:JOSE PARRY MD 03/18/19 Ferrous Sulfate* (Ferrous Sulfate*) 325 Mg Tabec, 325 MG PO TID for 30 Days, #90 TAB 2 Refills Prov:JOSE PARRY MD 03/18/19 Ranitidine Hcl* (Ranitidine Hcl*) 150 Mg Tablet, 150 MG PO DAILY for 30 Days, #30 TAB 5 Refills Prov:JOSE PARRY MD 02/02/19 Metoclopramide Hcl* (Metoclopramide Hcl*) 5 Mg Tablet, 5 MG PO AC MEALS for 30 Days, #90 TAB 5 Refills Prov:JOSE PARRY MD 02/02/19 Carvedilol* (Carvedilol*) 12.5 Mg Tablet, 12.5 MG PO BID for 30 Days, #60 TAB 5 Refills Prov:JOSE PARRY MD 02/02/19 Cilostazol* (Cilostazol*) 100 Mg Tablet, 50 MG PO BID for 30 Days, #30 TAB 5 Refills Prov:JOSE PARRY MD 02/02/19 Reported Medications Glycopyrrolate* (Glycopyrrolate*) 1 Mg Tablet, 1 MG PO BID, TAB 01/29/19 Amlodipine Besylate* (Norvasc*) 5 Mg Tablet, 5 MG PO DAILY, TAB 01/29/19 Ergocalciferol (Vitamin D2) (VITAMIN D2) 50,000 Unit Capsule, 35251 UNIT PO Q FRI, CAP 01/29/19 Atorvastatin* (Atorvastatin*) 40 Mg Tablet, 40 MG PO QHS, #30 TAB 01/29/19 Medications Current Medications Atorvastatin Calcium (Lipitor) 40 mg QHS PO Last administered on 04/11/19at 20:34; Admin Dose 40 MG; Start 03/23/19 at 21:00 Linagliptin (Tradjenta) 5 mg DAILY PO Last administered on 04/12/19at 08:06; Admin Dose 5 MG; Start 03/24/19 at 09:00 Ondansetron HCl (Zofran Inj) 4 mg Q4H PRN IV NAUSEA AND/OR VOMITING Last administered on 04/05/19at 06:29; Admin Dose 4 MG; Start 03/23/19 at 18:00 Hydromorphone HCl (Dilaudid) 2 mg Q4H PRN IV SEVERE PAIN LEVEL 7-10 Last administered on 04/09/19at 12:48; Admin Dose 2 MG; Start 03/23/19 at 18:00 Miscellaneous Information 1 ea NOTE XX ; Start 03/23/19 at 18:30 Glucose (Glutose) 15 gm Q15M PRN PO DECREASED GLUCOSE; Start 03/23/19 at 18:30 Glucose (Glutose) 22.5 gm Q15M PRN PO DECREASED GLUCOSE; Start 03/23/19 at 18:30 Dextrose (D50w Syringe) 25 ml Q15M PRN IV DECREASED GLUCOSE; Start 03/23/19 at 18:30 Dextrose (D50w Syringe) 50 ml Q15M PRN IV DECREASED GLUCOSE; Start 03/23/19 at 18:30 Glucagon (Glucagen) 1 mg Q15M PRN IM DECREASED GLUCOSE; Start 03/23/19 at 18:30 Glucose (Glutose) 15 gm Q15M PRN BUCCAL DECREASED GLUCOSE; Start 03/23/19 at 18: 30 Epoetin Joseph-epbx (Retacrit (Esrd)) 10,000 unit TuThSa@1700 SC Last administered on 04/11/19 17:00; Admin Dose 10,000 UNIT; Start 03/24/19 at 17:00 Acetaminophen/ Hydrocodone Bitart ([place] (5/325)) 1 tab Q6H PRN PO .MOD PAIN 4- 6 Last administered on 04/11/19 16:50; Admin Dose 1 TAB; Start 03/24/19 at 22:30 Albuterol/ Ipratropium (Duoneb) 3 ml Q4HWA RESP THERAPY HHN Last administered on 04/12/19 13:31; Admin Dose 3 ML; Start 03/27/19 at 21:00 Heparin Sodium (Porcine) (Heparin (5000 Units/1ml)) 5,000 unit BID SC Last administered on 04/12/19 08:08; Admin Dose 5,000 UNIT; Start 03/29/19 at 21:00 Metoclopramide HCl (Reglan) 5 mg Q6 IV Last administered on 04/12/19 12:11; Admin Dose 5 MG; Start 03/29/19 at 18:00 Diagnostic Test (Pha) (Accu-Chek) 1 ea 02 XX Last administered on 04/08/19 02:13; Admin Dose 1 EA; Start 04/01/19 at 02:00 Insulin Aspart (Novolog Insulin Pen) NOVOLOG *MODERATE* ALGORITHM WITH MEALS BEDTIME SC Last administered on 04/12/19 12:15; Admin Dose 4 UNIT; Start 03/31/19 at 21:00 Metoclopramide HCl (Reglan) 5 mg Q6H PRN IV NAUSEA; Start 04/01/19 at 09:35 Docusate Sodium/ Ferrous Fumarate (Angela-Sequels) 1 tab DAILY PO Last administered on 04/12/19 08:06; Admin Dose 1 TAB; Start 04/02/19 at 12:30; Stop 05/02/19 at 12:29 Alfuzosin HCl (Uroxatral) 10 mg HS PO Last administered on 04/11/19 20:35; Admin Dose 10 MG; Start 04/05/19 at 21:00 Zolpidem Tartrate (Ambien) 5 mg HS PRN PO INSOMNIA Last administered on 04/11/19 20:43; Admin Dose 5 MG; Start 04/05/19 at 21:30 Insulin Glargine (Lantus) 5 units DAILY@2000 SC Last administered on 04/11/19 21:20; Admin Dose 5 UNITS; Start 04/06/19 at 20:00 Nystatin (Nystatin Susp) 5 ml Q8 PO Last administered on 04/12/19 13:49; Admin Dose 5 ML; Start 04/06/19 at 22:00; Stop 04/13/19 at 21:59 Multivit/Ca Carb/ B Cmplx/FA/Prenat (Gilda-Jennifer) 1 tab DAILY PO Last administered on 04/12/19 08:05; Admin Dose 1 TAB; Start 04/07/19 at 09:00 Heparin Sodium (Porcine) (Heparin (1000 Units/ml)) 4,500 unit AFTER DIALYSIS CATHETER Last administered on 04/11/19 14:30; Admin Dose 4,500 UNIT; Start 04/07/19 at 16:00 Ranitidine HCl (Zantac) 150 mg QHS PO Last administered on 04/11/19 20:35; Admin Dose 150 MG; Start 04/08/19 at 21:00 Losartan Potassium (Cozaar) 25 mg BID PO Last administered on 04/12/19 08:07; Admin Dose 25 MG; Start 04/09/19 at 21:00 Aspirin (Aspirin) 81 mg DAILY PO Last administered on 04/12/19 08:07; Admin Dose 81 MG; Start 04/10/19 at 09:00 Carvedilol (Coreg) 25 mg BID PO Last administered on 04/12/19 08:07; Admin Dose 25 MG; Start 04/09/19 at 21:00 Albumin Human 100 ml @ 100 mls/hr WITH DIALYSIS PRN IV SBP <90 DURING DIALYSIS; Start 04/11/19 at 12:30 Ferric Sodium Gluconate Complex 125 mg/Sodium Chloride 100 ml @ 100 mls/hr DAILY@1300 IVPB Last administered on 04/12/19at 13:49; Admin Dose 100 MLS/HR; Start 04/12/19 at 13:30; Stop 04/14/19 at 13:59 Assessment/Plan Hospital Course (Demo Recall) Status post respiratory failure Renal failure on dialysis Peripheral arterial disease status post bypass Hypertension Episode of nonsustained V. tach but with preserved left ventricular ejection fraction echocardiogram January 2019 Diabetes Recommendations: Continue beta-jillian and titrate if needed. Continue losartan as tolerated Fluid management via hemodialysis as per nephrology Continue statin and aspirin therapy if no contraindication Thank you for his referral. We will continue to follow along with you until Dr. Cedeno returns on Saturday ALEX PALACIOS MD MERGED WITH [facility] ALEX PALACIOS MD Apr 12, 2019 14:00
[2019-04-12 16:16] VITALS: BP 122/53; PULSE 88; RESP 18
--- NOTE | 2019-04-12 16:27 | CONS ---
Consult Date/Type/Reason Admit Date/Time Mar 23, 2019 at 06:13 Initial Consult Date 03/28/19 Type of Consultation: Pulm Requesting Provider: JOSE PARRY MD Date/Time of Note DATE: 04/12/19 TIME: 16:24 Subjective No events. No SOB. On RA Objective Vitals Vital Signs Date Temp Pulse Resp B/P (MAP) Pulse Ox O2 O2 Flow FiO2 Time Delivery Rate 04/12/19 98.0 88 18 122/53 98 16:16 (76) 04/12/19 21 13:44 04/12/19 Nasal 2.0 09:09 Cannula Intake and Output 04/11/19 04/11/19 04/12/19 1515:00 23:00 07:00 IntakeIntake Total 900 ml 500 ml OutputOutput Total 2600 ml 450 ml BalanceBalance -2600 ml 900 ml 50 ml Exam NECK: Supple. No JVD or lymphadenopathy. CARDIAC EXAM: S1, S2. No added sounds or murmurs. CHEST: Diminished air entry bilaterally with rales ABDOMEN: Soft, nontender. No guarding or rebound. EXTREMITIES: No cyanosis, clubbing or edema. NEUROLOGIC: Generalized weakness. Results/Medications Result Diagram: 04/12/1963004/12/19630 Results 24 hrs Laboratory Tests Test 04/11/19 16:57 04/11/19 20:32 04/12/19 06:31 04/12/19 08:04 Bedside Glucose 248 H 130 91 White Blood Count 5.5 # Red Blood Count 2.60 L Hemoglobin 7.7 L Hematocrit 25.1 L Mean Corpuscular 96.5 Volume Mean Corpuscular 29.6 Hemoglobin Mean Corpuscular 30.7 L Hemoglobin Concent Red Cell 17.9 H Distribution Width Platelet Count 145 Mean Platelet Volume 10.9 H Immature 1.300 H Granulocytes % Neutrophils % 78.1 H Lymphocytes % 8.2 L Monocytes % 8.2 Eosinophils % 4.2 Basophils % 0.0 Nucleated Red Blood 0.4 H Cells % Immature 0.070 H Granulocytes # Neutrophils # 4.3 Lymphocytes # 0.5 L Monocytes # 0.5 Eosinophils # 0.2 Basophils # 0.0 Nucleated Red Blood 0.0 Cells # Sodium Level 132 L Potassium Level 5.1 Chloride Level 101 Carbon Dioxide Level 28 Anion Gap 3 L Blood Urea Nitrogen 36 #H Creatinine 3.08 #H Est Glomerular 20 L Filtrat Rate mL/min Glucose Level 95 Calcium Level 7.4 L Phosphorus Level 2.5 Iron Level 27 L Total Iron Binding 134 L Capacity Percent Iron 20 L Saturation Ferritin 393.0 H Total Bilirubin 0.4 Direct Bilirubin 0.00 Indirect Bilirubin 0.4 Aspartate Amino 27 Transf (AST/SGOT) Alanine 18 Aminotransferase (AL T/SGPT) Alkaline Phosphatase 77 Total Protein 4.6 L Albumin 2.4 L Globulin 2.20 Albumin/Globulin 1.09 Ratio Test 04/12/19 12:07 Bedside Glucose 202 Home Meds Active Scripts Amoxicillin/Potassium Clav (Amox-Clav 875-125 mg Tablet) 875-125 mg Tab, 1 TAB PO BID for 5 Days, #10 TAB 0 Refills Prov:JOSE PARRY MD 03/18/19 Linagliptin (TRADJENTA) 5 Mg Tablet, 5 MG PO DAILY for 30 Days, #30 TAB 3 Refills Prov:JOSE PARRY MD 03/18/19 Hydrocodone Bit-Acetaminophen (Hydrocodone Bit-APAP) 5-325MG Tablet, 1 TAB PO Q6H PRN for .MOD PAIN 4-6 for 5 Days, #20 TAB 0 Refills Prov:JOSE PARRY MD 03/18/19 Ferrous Sulfate* (Ferrous Sulfate*) 325 Mg Tabec, 325 MG PO TID for 30 Days, #90 TAB 2 Refills Prov:JOSE PARRY MD 03/18/19 Ranitidine Hcl* (Ranitidine Hcl*) 150 Mg Tablet, 150 MG PO DAILY for 30 Days, #30 TAB 5 Refills Prov:JOSE PARRY MD 02/02/19 Metoclopramide Hcl* (Metoclopramide Hcl*) 5 Mg Tablet, 5 MG PO AC MEALS for 30 Days, #90 TAB 5 Refills Prov:JOSE PARRY MD 02/02/19 Carvedilol* (Carvedilol*) 12.5 Mg Tablet, 12.5 MG PO BID for 30 Days, #60 TAB 5 Refills Prov:JOSE PARRY MD 02/02/19 Cilostazol* (Cilostazol*) 100 Mg Tablet, 50 MG PO BID for 30 Days, #30 TAB 5 Refills Prov:JOSE PARRY MD 02/02/19 Reported Medications Glycopyrrolate* (Glycopyrrolate*) 1 Mg Tablet, 1 MG PO BID, TAB 01/29/19 Amlodipine Besylate* (Norvasc*) 5 Mg Tablet, 5 MG PO DAILY, TAB 01/29/19 Ergocalciferol (Vitamin D2) (VITAMIN D2) 50,000 Unit Capsule, 06722 UNIT PO Q FRI, CAP 01/29/19 Atorvastatin* (Atorvastatin*) 40 Mg Tablet, 40 MG PO QHS, #30 TAB 01/29/19 Medications Current Medications Atorvastatin Calcium (Lipitor) 40 mg QHS PO Last administered on 04/11/19at 20:34; Admin Dose 40 MG; Start 03/23/19 at 21:00 Linagliptin (Tradjenta) 5 mg DAILY PO Last administered on 04/12/19at 08:06; Admin Dose 5 MG; Start 03/24/19 at 09:00 Ondansetron HCl (Zofran Inj) 4 mg Q4H PRN IV NAUSEA AND/OR VOMITING Last administered on 04/05/19at 06:29; Admin Dose 4 MG; Start 03/23/19 at 18:00 Hydromorphone HCl (Dilaudid) 2 mg Q4H PRN IV SEVERE PAIN LEVEL 7-10 Last administered on 04/09/19at 12:48; Admin Dose 2 MG; Start 03/23/19 at 18:00 Miscellaneous Information 1 ea NOTE XX ; Start 03/23/19 at 18:30 Glucose (Glutose) 15 gm Q15M PRN PO DECREASED GLUCOSE; Start 03/23/19 at 18:30 Glucose (Glutose) 22.5 gm Q15M PRN PO DECREASED GLUCOSE; Start 03/23/19 at 18:30 Dextrose (D50w Syringe) 25 ml Q15M PRN IV DECREASED GLUCOSE; Start 03/23/19 at 18:30 Dextrose (D50w Syringe) 50 ml Q15M PRN IV DECREASED GLUCOSE; Start 03/23/19 at 18:30 Glucagon (Glucagen) 1 mg Q15M PRN IM DECREASED GLUCOSE; Start 03/23/19 at 18:30 Glucose (Glutose) 15 gm Q15M PRN BUCCAL DECREASED GLUCOSE; Start 03/23/19 at 18:30 Epoetin Joseph-epbx (Retacrit (Esrd)) 10,000 unit TuThSa@1700 SC Last a dministered on 04/11/19 17:00; Admin Dose 10,000 UNIT; Start 03/24/19 at 17:00 Acetaminophen/ Hydrocodone Bitart ([place] (5/325)) 1 tab Q6H PRN PO .MOD PAIN 4- 6 Last administered on 04/11/19 16:50; Admin Dose 1 TAB; Start 03/24/19 at 22:30 Albuterol/ Ipratropium (Duoneb) 3 ml Q4HWA RESP THERAPY HHN Last administered on 04/12/19 13:31; Admin Dose 3 ML; Start 03/27/19 at 21:00 Heparin Sodium (Porcine) (Heparin (5000 Units/1ml)) 5,000 unit BID SC Last administered on 04/12/19 08:08; Admin Dose 5,000 UNIT; Start 03/29/19 at 21:00 Metoclopramide HCl (Reglan) 5 mg Q6 IV Last administered on 04/12/19 12:11; Admin Dose 5 MG; Start 03/29/19 at 18:00 Diagnostic Test (Pha) (Accu-Chek) 1 ea 02 XX Last administered on 04/08/19 02:13; Admin Dose 1 EA; Start 04/01/19 at 02:00 Insulin Aspart (Novolog Insulin Pen) NOVOLOG *MODERATE* ALGORITHM WITH MEALS BEDTIME SC Last administered on 04/12/19 12:15; Admin Dose 4 UNIT; Start 03/31/19 at 21:00 Metoclopramide HCl (Reglan) 5 mg Q6H PRN IV NAUSEA; Start 04/01/19 at 09:35 Docusate Sodium/ Ferrous Fumarate (Angela-Sequels) 1 tab DAILY PO Last administered on 04/12/19 08:06; Admin Dose 1 TAB; Start 04/02/19 at 12:30; Stop 05/02/19 at 12:29 Alfuzosin HCl (Uroxatral) 10 mg HS PO Last administered on 04/11/19 20:35; Admin Dose 10 MG; Start 04/05/19 at 21:00 Zolpidem Tartrate (Ambien) 5 mg HS PRN PO INSOMNIA Last administered on 04/11/19 20:43; Admin Dose 5 MG; Start 04/05/19 at 21:30 Insulin Glargine (Lantus) 5 units DAILY@2000 SC Last administered on 04/11/19 21:20; Admin Dose 5 UNITS; Start 04/06/19 at 20:00 Nystatin (Nystatin Susp) 5 ml Q8 PO Last administered on 04/12/19 13:49; Admin Dose 5 ML; Start 04/06/19 at 22:00; Stop 04/13/19 at 21:59 Multivit/Ca Carb/ B Cmplx/FA/Prenat (Gilda-Jennifer) 1 tab DAILY PO Last administer ed on 04/12/19 08:05; Admin Dose 1 TAB; Start 04/07/19 at 09:00 Heparin Sodium (Porcine) (Heparin (1000 Units/ml)) 4,500 unit AFTER DIALYSIS CATHETER Last administered on 04/11/19 14:30; Admin Dose 4,500 UNIT; Start 04/07/19 at 16:00 Ranitidine HCl (Zantac) 150 mg QHS PO Last administered on 04/11/19 20:35; Admin Dose 150 MG; Start 04/08/19 at 21:00 Losartan Potassium (Cozaar) 25 mg BID PO Last administered on 04/12/19 08:07; Admin Dose 25 MG; Start 04/09/19 at 21:00 Aspirin (Aspirin) 81 mg DAILY PO Last administered on 04/12/19 08:07; Admin Dose 81 MG; Start 04/10/19 at 09:00 Carvedilol (Coreg) 25 mg BID PO Last administered on 04/12/19 08:07; Admin Dose 25 MG; Start 04/09/19 at 21:00 Albumin Human 100 ml @ 100 mls/hr WITH DIALYSIS PRN IV SBP <90 DURING DIALYSIS; Start 04/11/19 at 12:30 Ferric Sodium Gluconate Complex 125 mg/Sodium Chloride 100 ml @ 100 mls/hr DAILY@1300 IVPB Last administered on 04/12/19 13:49; Admin Dose 100 MLS/HR; Start 04/12/19 at 13:30; Stop 04/14/19 at 13:59 Assessment/Plan Assessment/Plan (Daily) IMP: 1. s/p Acute hypoxemic respiratory failure significant radiographic changes concerning for pulmonary edema versus opportunistic infection vs. organizing pneumonia 2. Acute on chronic renal failure, now requiring dialysis. 3. Peripheral vascular disease, status post revascularization. 4. Likely aspiration pneumonia as well. 5. Diabetes mellitus. 6. History of hypertension. 7. Benign prostatic hypertrophy. RECS: 1. Off O2 2. Aspiration precautions continue antibiotics per infectious diseases currently on meropenem 3. HD/UF as per Renal ANA IRVING MD Apr 12, 2019 16:27
[2019-04-12] MEDS: HYDROmorphONE 2 MG/ML SYG IV PRN (19:44)
[2019-04-12 20:00] VITALS: BP 151/68; PULSE 89; RESP 19
[2019-04-12] MEDS: ALFUZOSIN (SR) 10 MG TAB PO SCH (21:58)
[2019-04-12] MEDS: ZOLPIDEM 5 MG TAB PO PRN (21:58)
[2019-04-12] MEDS: ATORVASTATIN 40 MG TAB PO SCH (21:58)
[2019-04-12] MEDS: RANITIDINE 150 MG TAB PO SCH (21:58)
--- NOTE | 2019-04-12 22:02 | CONS ---
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 - h/o amputation of R 5th toe - s/p revision R TMA surgery 04/09/2019 - s/p R TMA with wound VAC placement 04/06/19 - PVD of RLE - h/o percutaneous intervention of RLE in the past - h/o occluded R popliteal artery in doppler in 01/2019 - s/p R SFA to posterior tibial bypass using in situ greater saphenous vein from R thigh and calf on 03/23/2019 - Pt completed meropenem (03/29/2019-04/04/2019), pip/tazo (03/25/19-03/28/19) and IV vancomycin (03/25/19-03/30/19) # other conditions - thrush noted 04/06/19-->resolved after PO fluconazole x 3 days (04/06/2019- 04/09/2019) and nystatin swish and spit x 7 days (04/06/19-04/13/2019) - DM - Hgb A1c 5.7% - former smoker - constipation recommendations: - monitor Pt off systemic antibiotics management d/w Pt and his RN Maritza Consultation Date/Type/Reason Admit Date/Time Mar 23, 2019 at 06:13 Initial Consult Date 03/28/19 Type of Consult ID Requesting Provider: JOSE PARRY MD Date/Time of Note DATE: 04/12/19 TIME: 22:00 24 HR Interval Summary Constitutional: improved Detailed Summary Eyes: no complaints ENT: no complaints Respiratory: no complaints Cardiovascular: no complaints, other (no pain from the bypass site on RLE) Gastrointestinal: no complaints Genitourinary: no complaints Musculoskeletal: bone/joint pain (pain of R foot is controlled with meds), rest ricted range of motion Skin: no complaints Neurologic: no complaints Exam/Review of Systems Exam Vitals Vital Signs Date Temp Pulse Resp B/P (MAP) Pulse Ox O2 O2 Flow FiO2 Time Delivery Rate 04/12/19 84 16 93 21:19 04/12/19 98.1 151/68 20:00 (95) 04/12/19 21 17:06 04/12/19 Nasal 2.0 09:09 Cannula Intake and Output 04/11/19 04/11/19 04/12/19 1515:00 23:00 07:00 IntakeIntake Total 900 ml 500 ml OutputOutput Total 2600 ml 450 ml BalanceBalance -2600 ml 900 ml 50 ml Constitutional: alert, oriented, well developed Psych: no complaints, nl mood/affect Head: normocephalic, atraumatic Eyes: nl conjunctiva, nl lids, nl sclera ENMT: nl external ears & nose, nl nasal mucosa & septum, mucosa pink and moist Neck: supple Respiratory: clear to auscultation, normal air movement Cardiovascular: regular rate and rhythm, nl pulses, other (bypass site of RLE is well approximated with steri strips and dried blood); No edema Gastrointestinal: soft, non-tender; No distended, No tender Genitourinary - Male: other (+HD cathter ) Musculoskeletal: other (R TMA, dressed) Extremities: No edema Neurological: COURT REPORTER II-XII intact, nl mental status, nl speech Skin: No rash or lesions Results Result Diagram: 04/12/1931 04/12/19 0631 Results 24hrs Laboratory Tests Test 04/12/19 06:31 04/12/19 08:04 04/12/19 12:07 04/12/19 16:53 White Blood Count 5.5 # Red Blood Count 2.60 L Hemoglobin 7.7 L Hematocrit 25.1 L Mean Corpuscular 96.5 Volume Mean Corpuscular 29.6 Hemoglobin Mean Corpuscular 30.7 L Hemoglobin Concent Red Cell 17.9 H Distribution Width Platelet Count 145 Mean Platelet Volume 10.9 H Immature 1.300 H Granulocytes % Neutrophils % 78.1 H Lymphocytes % 8.2 L Monocytes % 8.2 Eosinophils % 4.2 Basophils % 0.0 Nucleated Red Blood 0.4 H Cells % Immature 0.070 H Granulocytes # Neutrophils # 4.3 Lymphocytes # 0.5 L Monocytes # 0.5 Eosinophils # 0.2 Basophils # 0.0 Nucleated Red Blood 0.0 Cells # Sodium Level 132 L Potassium Level 5.1 Chloride Level 101 Carbon Dioxide Level 28 Anion Gap 3 L Blood Urea Nitrogen 36 #H Creatinine 3.08 #H Est Glomerular 20 L Filtrat Rate mL/min Glucose Level 95 Calcium Level 7.4 L Phosphorus Level 2.5 Iron Level 27 L Total Iron Binding 134 L Capacity Percent Iron 20 L Saturation Ferritin 393.0 H Total Bilirubin 0.4 Direct Bilirubin 0.00 Indirect Bilirubin 0.4 Aspartate Amino 27 Transf (AST/SGOT) Alanine 18 Aminotransferase (AL T/SGPT) Alkaline Phosphatase 77 Total Protein 4.6 L Albumin 2.4 L Globulin 2.20 Albumin/Globulin 1.09 Ratio Bedside Glucose 91 202 118 Medications Medication Current Medications Atorvastatin Calcium (Lipitor) 40 mg QHS PO Last administered on 04/11/19at 20:34; Admin Dose 40 MG; Start 03/23/19 at 21:00 Linagliptin (Tradjenta) 5 mg DAILY PO Last administered on 04/12/19at 08:06; Admin Dose 5 MG; Start 03/24/19 at 09:00 Ondansetron HCl (Zofran Inj) 4 mg Q4H PRN IV NAUSEA AND/OR VOMITING Last administered on 04/05/19at 06:29; Admin Dose 4 MG; Start 03/23/19 at 18:00 Hydromorphone HCl (Dilaudid) 2 mg Q4H PRN IV SEVERE PAIN LEVEL 7-10 Last administered on 04/12/19at 19:44; Admin Dose 2 MG; Start 03/23/19 at 18:00 Miscellaneous Information 1 ea NOTE XX ; Start 03/23/19 at 18:30 Glucose (Glutose) 15 gm Q15M PRN PO DECREASED GLUCOSE; Start 03/23/19 at 18:30 Glucose (Glutose) 22.5 gm Q15M PRN PO DECREASED GLUCOSE; Start 03/23/19 at 18:30 Dextrose (D50w Syringe) 25 ml Q15M PRN IV DECREASED GLUCOSE; Start 03/23/19 at 18:30 Dextrose (D50w Syringe) 50 ml Q15M PRN IV DECREASED GLUCOSE; Start 03/23/19 at 18:30 Glucagon (Glucagen) 1 mg Q15M PRN IM DECREASED GLUCOSE; Start 03/23/19 at 18:30 Glucose (Glutose) 15 gm Q15M PRN BUCCAL DECREASED GLUCOSE; Start 03/23/19 at 18:30 Epoetin Joseph-epbx (Retacrit (Esrd)) 10,000 unit TuThSa@1700 SC Last administered on 04/11/19 17:00; Admin Dose 10,000 UNIT; Start 03/24/19 at 17:00 Acetaminophen/ Hydrocodone Bitart ([place] (5/325)) 1 tab Q6H PRN PO .MOD PAIN 4-6 Last administered on 04/11/19 16:50; Admin Dose 1 TAB; Start 03/24/19 at 22:30 Albuterol/ Ipratropium (Duoneb) 3 ml Q4HWA RESP THERAPY HHN Last administered on 04/12/19 21:18; Admin Dose 3 ML; Start 03/27/19 at 21:00 Heparin Sodium (Porcine) (Heparin (5000 Units/1ml)) 5,000 unit BID SC Last ad ministered on 04/12/19 08:08; Admin Dose 5,000 UNIT; Start 03/29/19 at 21:00 Metoclopramide HCl (Reglan) 5 mg Q6 IV Last administered on 04/12/19 17:13; Admin Dose 5 MG; Start 03/29/19 at 18:00 Diagnostic Test (Pha) (Accu-Chek) 1 ea 02 XX Last administered on 04/08/19 02:13; Admin Dose 1 EA; Start 04/01/19 at 02:00 Insulin Aspart (Novolog Insulin Pen) NOVOLOG *MODERATE* ALGORITHM WITH MEALS BEDTIME SC Last administered on 04/12/19 12:15; Admin Dose 4 UNIT; Start 03/31/19 at 21:00 Metoclopramide HCl (Reglan) 5 mg Q6H PRN IV NAUSEA; Start 04/01/19 at 09:35 Docusate Sodium/ Ferrous Fumarate (Angela-Sequels) 1 tab DAILY PO Last administered on 04/12/19 08:06; Admin Dose 1 TAB; Start 04/02/19 at 12:30; Stop 05/02/19 at 12:29 Alfuzosin HCl (Uroxatral) 10 mg HS PO Last administered on 04/11/19 20:35; Admin Dose 10 MG; Start 04/05/19 at 21:00 Zolpidem Tartrate (Ambien) 5 mg HS PRN PO INSOMNIA Last administered on 04/11/19 20:43; Admin Dose 5 MG; Start 04/05/19 at 21:30 Insulin Glargine (Lantus) 5 units DAILY@2000 SC Last administered on 04/11/19 21:20; Admin Dose 5 UNITS; Start 04/06/19 at 20:00 Nystatin (Nystatin Susp) 5 ml Q8 PO Last administered on 04/12/19 13:49; Admin Dose 5 ML; Start 04/06/19 at 22:00; Stop 04/13/19 at 21:59 Multivit/Ca Carb/ B Cmplx/FA/Prenat (Gilda-Jennifer) 1 tab DAILY PO Last administered on 04/12/19 08:05; Admin Dose 1 TAB; Start 04/07/19 at 09:00 Heparin Sodium (Porcine) (Heparin (1000 Units/ml)) 4,500 unit AFTER DIALYSIS CATHETER Last administered on 04/11/19 14:30; Admin Dose 4,500 UNIT; Start 04/07/19 at 16:00 Ranitidine HCl (Zantac) 150 mg QHS PO Last administered on 04/11/19 20:35; Admin Dose 150 MG; Start 04/08/19 at 21:00 Losartan Potassium (Cozaar) 25 mg BID PO Last administered on 04/12/19 08:07; Admin Dose 25 MG; Start 04/09/19 at 21:00 Aspirin (Aspirin) 81 mg DAILY PO Last administered on 04/12/19 08:07; Admin Do se 81 MG; Start 04/10/19 at 09:00 Carvedilol (Coreg) 25 mg BID PO Last administered on 04/12/19 08:07; Admin Dose 25 MG; Start 04/09/19 at 21:00 Albumin Human 100 ml @ 100 mls/hr WITH DIALYSIS PRN IV SBP <90 DURING DIALYSIS; Start 04/11/19 at 12:30 Ferric Sodium Gluconate Complex 125 mg/Sodium Chloride 100 ml @ 100 mls/hr DAILY@1300 IVPB Last administered on 04/12/19 13:49; Admin Dose 100 MLS/HR; Start 04/12/19 at 13:30; Stop 04/14/19 at 13:59 LUDMILA ANTOINE M.D. Apr 12, 2019 22:02
[2019-04-12] MEDS: INSULIN GLARGINE [LANTus] (100 UNITS/ML) SYG SC SCH (22:19)
[2019-04-13] VITALS (18 sets, daily range): BP systolic 97–157; BP diastolic 52–75; PULSE 68–81; RESP 17–18
[2019-04-13] MEDS: METOCLOPRAMIDE 10 MG INJ IV SCH ×3 (01:04→12:06)
[2019-04-13] MEDS: ACCU-CHEK XX SCH (02:00)
[2019-04-13] MEDS: NYSTATIN SUSP 5 ML CUP PO SCH ×2 (05:20→15:00)
[2019-04-13] MEDS: HYDROmorphONE 2 MG/ML SYG IV PRN (05:20)
[2019-04-13] MEDS: INSULIN ASPART [NOVOLOG] 3 ML PEN SC SCH ×2 (07:53→11:50)
--- NOTE | 2019-04-13 08:29 | CONS ---
Assessment/Plan Assessment/Plan Hospital Course (Demo Recall) 1. ESRD: for hemodialysis today, arrangements for outpatient hemodialysis in progress, low phos noted and binders held 2. HTN: stable 3. Anemia: hb dropped again. check stool ob. cont epogen and IV iron . 4. hyperlipidemia: on statin 5. DM, sugar well controlled 6. Post op revascularization right leg, gangrene and toe amputation and wound closure Consultation Date/Type/Reason Admit Date/Time Mar 23, 2019 at 06:13 Initial Consult Date 03/28/19 Requesting Provider: JOSE PARRY MD Date/Time of Note DATE: 04/13/19 TIME: 08:21 24 HR Interval Summary Free Text/Dictation This patient is being seen in nephrologic follow-up. He is awake and alert. He is scheduled for hemodialysis today. Constitutional: no complaints, improved Exam/Review of Systems Exam Vitals Vital Signs Date Temp Pulse Resp B/P (MAP) Pulse Ox O2 O2 Flow FiO2 Time Delivery Rate 04/13/19 98.3 69 18 103/52 95 07:26 (69) 04/12/19 21 17:06 04/12/19 Nasal 2.0 09:09 Cannula Intake and Output 04/12/19 04/12/19 04/13/19 1515:00 23:00 07:00 IntakeIntake Total 360 ml 340 ml 440 ml OutputOutput Total 1100 ml BalanceBalance 360 ml 340 ml -660 ml Exam Right foot status post toe amputation with large bandage Constitutional: alert, oriented, frail Respiratory: clear to auscultation, normal air movement Cardiovascular: regular rate and rhythm Gastrointestinal: soft, non-tender Results Result Diagram: 04/13/19 0554 04/13/19 0554 Results 24hrs Laboratory Tests Test 04/12/19 12:07 04/12/19 16:53 04/12/19 22:03 04/12/19 22:04 Bedside Glucose 202 118 169 163 Test 04/13/19 05:54 04/13/19 07:53 White Blood Count 5.8 Red Blood Count 2.51 L Hemoglobin 7.6 L Hematocrit 24.6 L Mean Corpuscular 98.0 Volume Mean Corpuscular 30.3 Hemoglobin Mean Corpuscular 30.9 L Hemoglobin Concent Red Cell 18.1 H Distribution Width Platelet Count 139 L Mean Platelet Volume 11.2 H Immature 1.600 H Granulocytes % Neutrophils % 72.3 Lymphocytes % 11.6 L Monocytes % 9.5 Eosinophils % 5.0 Basophils % 0.0 Nucleated Red Blood 0.3 H Cells % Immature 0.090 H Granulocytes # Neutrophils # 4.2 Lymphocytes # 0.7 L Monocytes # 0.6 Eosinophils # 0.3 Basophils # 0.0 Nucleated Red Blood 0.0 Cells # Sodium Level 132 L Potassium Level 5.4 H Chloride Level 99 Carbon Dioxide Level 26 Anion Gap 7 Blood Urea Nitrogen 48 #H Creatinine 4.37 #H Est Glomerular 13 L Filtrat Rate mL/min Glucose Level 87 Calcium Level 7.4 L Phosphorus Level 2.6 Total Bilirubin 0.3 Direct Bilirubin 0.00 Indirect Bilirubin 0.3 Aspartate Amino 25 Transf (AST/SGOT) Alanine 16 Aminotransferase (AL T/SGPT) Alkaline Phosphatase 73 Total Protein 4.7 L Albumin 2.5 L Globulin 2.20 Albumin/Globulin 1.13 Ratio Bedside Glucose 106 Medications Medication Current Medications Atorvastatin Calcium (Lipitor) 40 mg QHS PO Last administered on 04/12/19at 21:58; Admin Dose 40 MG; Start 03/23/19 at 21:00 Linagliptin (Tradjenta) 5 mg DAILY PO Last administered on 04/12/19at 08:06; Admin Dose 5 MG; Start 03/24/19 at 09:00 Ondansetron HCl (Zofran Inj) 4 mg Q4H PRN IV NAUSEA AND/OR VOMITING Last administered on 04/05/19at 06:29; Admin Dose 4 MG; Start 03/23/19 at 18:00 Hydromorphone HCl (Dilaudid) 2 mg Q4H PRN IV SEVERE PAIN LEVEL 7-10 Last administered on 04/13/19at 05:20; Admin Dose 2 MG; Start 03/23/19 at 18:00 Miscellaneous Information 1 ea NOTE XX ; Start 03/23/19 at 18:30 Glucose (Glutose) 15 gm Q15M PRN PO DECREASED GLUCOSE; Start 03/23/19 at 18:30 Glucose (Glutose) 22.5 gm Q15M PRN PO DECREASED GLUCOSE; Start 03/23/19 at 18:30 Dextrose (D50w Syringe) 25 ml Q15M PRN IV DECREASED GLUCOSE; Start 03/23/19 at 18:30 Dextrose (D50w Syringe) 50 ml Q15M PRN IV DECREASED GLUCOSE; Start 03/23/19 at 18:30 Glucagon (Glucagen) 1 mg Q15M PRN IM DECREASED GLUCOSE; Start 03/23/19 at 18:30 Glucose (Glutose) 15 gm Q15M PRN BUCCAL DECREASED GLUCOSE; Start 03/23/19 at 18:30 Epoetin Joseph-epbx (Retacrit (Esrd)) 10,000 unit TuThSa@1700 SC Last administered on 04/11/19 17:00; Admin Dose 10,000 UNIT; Start 03/24/19 at 17:00 Acetaminophen/ Hydrocodone Bitart ([place] (5/325)) 1 tab Q6H PRN PO .MOD PAIN 4- 6 Last administered on 04/11/19 16:50; Admin Dose 1 TAB; Start 03/24/19 at 22:30 Albuterol/ Ipratropium (Duoneb) 3 ml Q4HWA RESP THERAPY HHN Last administered on 04/12/19 21:18; Admin Dose 3 ML; Start 03/27/19 at 21:00 Heparin Sodium (Porcine) (Heparin (5000 Units/1ml)) 5,000 unit BID SC Last administered on 04/12/19 22:18; Admin Dose 5,000 UNIT; Start 03/29/19 at 21:00 Metoclopramide HCl (Reglan) 5 mg Q6 IV Last administered on 04/13/19 05:20; Admin Dose 5 MG; Start 03/29/19 at 18:00 Diagnostic Test (Pha) (Accu-Chek) 1 ea 02 XX Last administered on 04/08/19at 02:13; Admin Dose 1 EA; Start 04/01/19 at 02:00 Insulin Aspart (Novolog Insulin Pen) NOVOLOG *MODERATE* ALGORITHM WITH MEALS BEDTIME SC Last administered on 04/12/19 12:15; Admin Dose 4 UNIT; Start 03/31/19 at 21:00 Metoclopramide HCl (Reglan) 5 mg Q6H PRN IV NAUSEA; Start 04/01/19 at 09:35 Docusate Sodium/ Ferrous Fumarate (Angela-Sequels) 1 tab DAILY PO Last administered on 04/12/19 08:06; Admin Dose 1 TAB; Start 04/02/19 at 12:30; Stop 05/02/19 at 12:29 Alfuzosin HCl (Uroxatral) 10 mg HS PO Last administered on 04/12/19 21:58; Admin Dose 10 MG; Start 04/05/19 at 21:00 Zolpidem Tartrate (Ambien) 5 mg HS PRN PO INSOMNIA Last administered on 04/12/19 21:58; Admin Dose 5 MG; Start 04/05/19 at 21:30 Insulin Glargine (Lantus) 5 units DAILY@2000 SC Last administered on 04/12/19 22:19; Admin Dose 5 UNITS; Start 04/06/19 at 20:00 Nystatin (Nystatin Susp) 5 ml Q8 PO Last administered on 04/13/19 05:20; Admin Dose 5 ML; Start 04/06/19 at 22:00; Stop 04/13/19 at 21:59 Multivit/Ca Carb/ B Cmplx/FA/Prenat (Gilda-Jennifer) 1 tab DAILY PO Last administered on 04/12/19 08:05; Admin Dose 1 TAB; Start 04/07/19 at 09:00 Heparin Sodium (Porcine) (Heparin (1000 Units/ml)) 4,500 unit AFTER DIALYSIS CATHETER Last administered on 04/11/19 14:30; Admin Dose 4,500 UNIT; Start 04/07/19 at 16:00 Ranitidine HCl (Zantac) 150 mg QHS PO Last administered on 04/12/19 21:58; Admin Dose 150 MG; Start 04/08/19 at 21:00 Losartan Potassium (Cozaar) 25 mg BID PO Last administered on 04/12/19 21:59; Admin Dose 25 MG; Start 04/09/19 at 21:00 Aspirin (Aspirin) 81 mg DAILY PO Last administered on 04/12/19 08:07; Admin Dose 81 MG; Start 04/10/19 at 09:00 Carvedilol (Coreg) 25 mg BID PO Last administered on 04/12/19 21:58; Admin Dose 25 MG; Start 04/09/19 at 21:00 Albumin Human 100 ml @ 100 mls/hr WITH DIALYSIS PRN IV SBP <90 DURING DIALYSIS; Start 04/11/19 at 12:30 Ferric Sodium Gluconate Complex 125 mg/Sodium Chloride 100 ml @ 100 mls/hr DAILY@1300 IVPB Last administered on 04/12/19at 13:49; Admin Dose 100 MLS/HR; Start 04/12/19 at 13:30; Stop 04/14/19 at 13:59 NILAM PAYNE MD Apr 13, 2019 08:29
[2019-04-13] MEDS: ASPIRIN 81 MG TAB PO SCH (09:30)
[2019-04-13] MEDS: LINAGLIPTIN 5 MG TABLET PO SCH (09:31)
[2019-04-13] MEDS: HEPARIN 5,000 UNIT/1 ML VIAL SC SCH (09:39)
[2019-04-13] MEDS: ALBUTEROL/IPRATROPIUM (NEB) 3 ML AMP HHN SCH ×3 (09:53→16:39)
[2019-04-13] MEDS: MULTIVIT/CA CARB/B CMPLX/FA TAB PO SCH (09:56)
[2019-04-13] MEDS: FERROUS FUMARATE (SR) TAB PO SCH (12:06)
--- NOTE | 2019-04-13 12:13 | CONS ---
Consult Date/Type/Reason Admit Date/Time Mar 23, 2019 at 06:13 Initial Consult Date 03/28/19 Type of Consult Pulmonary Requesting Provider: JOSE PARRY MD Date/Time of Note DATE: 04/13/19 TIME: 12:12 Subjective Patient stable. No new events. Objective Vital Signs Date Temp Pulse Resp B/P (MAP) Pulse Ox O2 O2 Flow FiO2 Time Delivery Rate 04/13/19 98.2 69 17 107/53 95 11:25 (71) 04/13/19 Room Air 11:00 04/13/19 21 09:54 04/12/19 2.0 09:09 Intake and Output 04/12/19 04/12/19 04/13/19 1515:00 23:00 07:00 IntakeIntake Total 360 ml 340 ml 440 ml OutputOutput Total 1100 ml BalanceBalance 360 ml 340 ml -660 ml Exam GENERAL: Elderly gentleman comfortable at rest no acute distress VITAL SIGNS: per chart NECK: Supple. No JVD or lymphadenopathy. CARDIAC EXAM: S1, S2. No added sounds or murmurs. CHEST: clear bilaterally, No added sounds, rales or wheezes ABDOMEN: Soft, nontender. No guarding or rebound. EXTREMITIES: No cyanosis, clubbing or edema. NEUROLOGIC: Generalized weakness. No focal deficits. Vent Setting Fraction of Inspired Oxygen pe: 21 Results/Medications Result Diagram: 04/13/19 0554 04/13/19 0554 Results 24 hrs Laboratory Tests Test 04/12/19 16:53 04/12/19 22:03 04/12/19 22:04 04/13/19 05:54 Bedside Glucose 118 169 163 White Blood Count 5.8 Red Blood Count 2.51 L Hemoglobin 7.6 L Hematocrit 24.6 L Mean Corpuscular 98.0 Volume Mean Corpuscular 30.3 Hemoglobin Mean Corpuscular 30.9 L Hemoglobin Concent Red Cell 18.1 H Distribution Width Platelet Count 139 L Mean Platelet Volume 11.2 H Immature 1.600 H Granulocytes % Neutrophils % 72.3 Lymphocytes % 11.6 L Monocytes % 9.5 Eosinophils % 5.0 Basophils % 0.0 Nucleated Red Blood 0.3 H Cells % Immature 0.090 H Granulocytes # Neutrophils # 4.2 Lymphocytes # 0.7 L Monocytes # 0.6 Eosinophils # 0.3 Basophils # 0.0 Nucleated Red Blood 0.0 Cells # Sodium Level 132 L Potassium Level 5.4 H Chloride Level 99 Carbon Dioxide Level 26 Anion Gap 7 Blood Urea Nitrogen 48 #H Creatinine 4.37 #H Est Glomerular 13 L Filtrat Rate mL/min Glucose Level 87 Calcium Level 7.4 L Phosphorus Level 2.6 Total Bilirubin 0.3 Direct Bilirubin 0.00 Indirect Bilirubin 0.3 Aspartate Amino 25 Transf (AST/SGOT) Alanine 16 Aminotransferase (AL T/SGPT) Alkaline Phosphatase 73 Total Protein 4.7 L Albumin 2.5 L Globulin 2.20 Albumin/Globulin 1.13 Ratio Test 04/13/19 07:53 04/13/19 12:04 Bedside Glucose 106 113 Medications Current Medications Atorvastatin Calcium (Lipitor) 40 mg QHS PO Last administered on 04/12/19at 21:58; Admin Dose 40 MG; Start 03/23/19 at 21:00 Linagliptin (Tradjenta) 5 mg DAILY PO Last administered on 04/13/19at 09:31; Admin Dose 5 MG; Start 03/24/19 at 09:00 Ondansetron HCl (Zofran Inj) 4 mg Q4H PRN IV NAUSEA AND/OR VOMITING Last administered on 04/05/19at 06:29; Admin Dose 4 MG; Start 03/23/19 at 18:00 Hydromorphone HCl (Dilaudid) 2 mg Q4H PRN IV SEVERE PAIN LEVEL 7-10 Last admi nistered on 04/13/19at 05:20; Admin Dose 2 MG; Start 03/23/19 at 18:00 Miscellaneous Information 1 ea NOTE XX ; Start 03/23/19 at 18:30 Glucose (Glutose) 15 gm Q15M PRN PO DECREASED GLUCOSE; Start 03/23/19 at 18:30 Glucose (Glutose) 22.5 gm Q15M PRN PO DECREASED GLUCOSE; Start 03/23/19 at 18:30 Dextrose (D50w Syringe) 25 ml Q15M PRN IV DECREASED GLUCOSE; Start 03/23/19 at 18:30 Dextrose (D50w Syringe) 50 ml Q15M PRN IV DECREASED GLUCOSE; Start 03/23/19 at 18:30 Glucagon (Glucagen) 1 mg Q15M PRN IM DECREASED GLUCOSE; Start 03/23/19 at 18:30 Glucose (Glutose) 15 gm Q15M PRN BUCCAL DECREASED GLUCOSE; Start 03/23/19 at 18:30 Epoetin Joseph-epbx (Retacrit (Esrd)) 10,000 unit TuThSa@1700 SC Last admin istered on 04/11/19 17:00; Admin Dose 10,000 UNIT; Start 03/24/19 at 17:00 Acetaminophen/ Hydrocodone Bitart ([place] (5/325)) 1 tab Q6H PRN PO .MOD PAIN 4- 6 Last administered on 04/11/19 16:50; Admin Dose 1 TAB; Start 03/24/19 at 22:30 Albuterol/ Ipratropium (Duoneb) 3 ml Q4HWA RESP THERAPY HHN Last administered on 04/13/19 09:53; Admin Dose 3 ML; Start 03/27/19 at 21:00 Heparin Sodium (Porcine) (Heparin (5000 Units/1ml)) 5,000 unit BID SC Last administered on 04/13/19 09:39; Admin Dose 5,000 UNIT; Start 03/29/19 at 21:00 Metoclopramide HCl (Reglan) 5 mg Q6 IV Last administered on 04/13/19 12:06; Admin Dose 5 MG; Start 03/29/19 at 18:00 Diagnostic Test (Pha) (Accu-Chek) 1 ea 02 XX Last administered on 04/08/19 02:13; Admin Dose 1 EA; Start 04/01/19 at 02:00 Insulin Aspart (Novolog Insulin Pen) NOVOLOG *MODERATE* ALGORITHM WITH MEALS BEDTIME SC Last administered on 04/12/19 12:15; Admin Dose 4 UNIT; Start 03/31/19 at 21:00 Metoclopramide HCl (Reglan) 5 mg Q6H PRN IV NAUSEA; Start 04/01/19 at 09:35 Docusate Sodium/ Ferrous Fumarate (Angela-Sequels) 1 tab DAILY PO Last adm inistered on 04/13/19 12:06; Admin Dose 1 TAB; Start 04/02/19 at 12:30; Stop 05/02/19 at 12:29 Alfuzosin HCl (Uroxatral) 10 mg HS PO Last administered on 04/12/19 21:58; Admin Dose 10 MG; Start 04/05/19 at 21:00 Zolpidem Tartrate (Ambien) 5 mg HS PRN PO INSOMNIA Last administered on 04/12/19 21:58; Admin Dose 5 MG; Start 04/05/19 at 21:30 Insulin Glargine (Lantus) 5 units DAILY@2000 SC Last administered on 04/12/19 22:19; Admin Dose 5 UNITS; Start 04/06/19 at 20:00 Nystatin (Nystatin Susp) 5 ml Q8 PO Last administered on 04/13/19 05:20; Admin Dose 5 ML; Start 04/06/19 at 22:00; Stop 04/13/19 at 21:59 Multivit/Ca Carb/ B Cmplx/FA/Prenat (Gilda-Jennifer) 1 tab DAILY PO Last administered on 04/13/19 09:56; Admin Dose 1 TAB; Start 04/07/19 at 09:00 Heparin Sodium (Porcine) (Heparin (1000 Units/ml)) 4,500 unit AFTER DIALYSIS CATHETER Last administered on 04/11/19 14:30; Admin Dose 4,500 UNIT; Start 04/07/19 at 16:00 Ranitidine HCl (Zantac) 150 mg QHS PO Last administered on 04/12/19 21:58; Admin Dose 150 MG; Start 04/08/19 at 21:00 Losartan Potassium (Cozaar) 25 mg BID PO Last administered on 04/12/19 21:59; Admin Dose 25 MG; Start 04/09/19 at 21:00 Aspirin (Aspirin) 81 mg DAILY PO Last administered on 04/13/19 09:30; Admin Dose 81 MG; Start 04/10/19 at 09:00 Carvedilol (Coreg) 25 mg BID PO Last administered on 04/12/19 21:58; Admin Dose 25 MG; Start 04/09/19 at 21:00 Albumin Human 100 ml @ 100 mls/hr WITH DIALYSIS PRN IV SBP <90 DURING DIALYSIS; Start 04/11/19 at 12:30 Ferric Sodium Gluconate Complex 125 mg/Sodium Chloride 100 ml @ 100 mls/hr DAILY@1300 IVPB Last administered on 04/12/19 13:49; Admin Dose 100 MLS/HR; Start 04/12/19 at 13:30; Stop 04/14/19 at 13:59 Assessment/Plan Hospital Course (Demo Recall) IMP: 1. s/p Acute hypoxemic respiratory failure significant radiographic changes concerning for pulmonary edema versus opportunistic infection vs. organizing pneumonia 2. Acute on chronic renal failure, now requiring dialysis. 3. Peripheral vascular disease, status post revascularization. 4. Likely aspiration pneumonia as well. 5. Diabetes mellitus. 6. History of hypertension. 7. Benign prostatic hypertrophy. RECS: 1. Off O2 2. Aspiration precautions continue antibiotics per infectious diseases currently on meropenem 3. HD/UF as per Renal DC planning. Consider SNF [facility]E [facility] Apr 13, 2019 12:13
--- NOTE | 2019-04-13 13:16 | CONS ---
Assessment/Plan Assessment/Plan Assessment/Plan (Daily) Status post respiratory failure Renal failure on dialysis Peripheral arterial disease status post bypass Hypertension Episode of nonsustained V. tach but with preserved left ventricular ejection fraction echocardiogram January 2019 Diabetes Recommendations: Continue beta-jillian and titrate if needed. Continue losartan as tolerated Fluid management via hemodialysis as per nephrology Continue statin and aspirin therapy if no contraindication Consultation Date/Type/Reason Admit Date/Time Mar 23, 2019 at 06:13 Initial Consult Date 03/28/19 Type of Consult Cardiology Requesting Provider: JOSE PARRY MD Date/Time of Note DATE: 04/13/19 TIME: 13:16 24 HR Interval Summary Free Text/Dictation the aptient with no change Exam/Review of Systems Vital Signs Vitals Vital Signs Date Temp Pulse Resp B/P (MAP) Pulse Ox O2 O2 Flow FiO2 Time Delivery Rate 04/13/19 70 13:00 04/13/19 98.2 17 107/53 95 11:25 (71) 04/13/19 Room Air 11:00 04/13/19 21 09:54 04/12/19 2.0 09:09 Intake and Output 04/12/19 04/12/19 04/13/19 1515:00 23:00 07:00 IntakeIntake Total 360 ml 340 ml 440 ml OutputOutput Total 1100 ml BalanceBalance 360 ml 340 ml -660 ml Labs Result Diagram: 04/13/19 0554 04/13/19 0554 Results 24hrs Laboratory Tests Test 04/12/19 16:53 04/12/19 22:03 04/12/19 22:04 04/13/19 05:54 Bedside Glucose 118 169 163 White Blood Count 5.8 Red Blood Count 2.51 L Hemoglobin 7.6 L Hematocrit 24.6 L Mean Corpuscular 98.0 Volume Mean Corpuscular 30.3 Hemoglobin Mean Corpuscular 30.9 L Hemoglobin Concent Red Cell 18.1 H Distribution Width Platelet Count 139 L Mean Platelet Volume 11.2 H Immature 1.600 H Granulocytes % Neutrophils % 72.3 Lymphocytes % 11.6 L Monocytes % 9.5 Eosinophils % 5.0 Basophils % 0.0 Nucleated Red Blood 0.3 H Cells % Immature 0.090 H Granulocytes # Neutrophils # 4.2 Lymphocytes # 0.7 L Monocytes # 0.6 Eosinophils # 0.3 Basophils # 0.0 Nucleated Red Blood 0.0 Cells # Sodium Level 132 L Potassium Level 5.4 H Chloride Level 99 Carbon Dioxide Level 26 Anion Gap 7 Blood Urea Nitrogen 48 #H Creatinine 4.37 #H Est Glomerular 13 L Filtrat Rate mL/min Glucose Level 87 Calcium Level 7.4 L Phosphorus Level 2.6 Total Bilirubin 0.3 Direct Bilirubin 0.00 Indirect Bilirubin 0.3 Aspartate Amino 25 Transf (AST/SGOT) Alanine 16 Aminotransferase (AL T/SGPT) Alkaline Phosphatase 73 Total Protein 4.7 L Albumin 2.5 L Globulin 2.20 Albumin/Globulin 1.13 Ratio Test 04/13/19 07:53 04/13/19 12:04 Bedside Glucose 106 113 Medications Medications Current Medications Atorvastatin Calcium (Lipitor) 40 mg QHS PO Last administered on 04/12/19at 21:58; Admin Dose 40 MG; Start 03/23/19 at 21:00 Linagliptin (Tradjenta) 5 mg DAILY PO Last administered on 04/13/19at 09:31; Admin Dose 5 MG; Start 03/24/19 at 09:00 Ondansetron HCl (Zofran Inj) 4 mg Q4H PRN IV NAUSEA AND/OR VOMITING Last administered on 04/05/19at 06:29; Admin Dose 4 MG; Start 03/23/19 at 18:00 Hydromorphone HCl (Dilaudid) 2 mg Q4H PRN IV SEVERE PAIN LEVEL 7-10 Last administered on 04/13/19at 05:20; Admin Dose 2 MG; Start 03/23/19 at 18:00 Miscellaneous Information 1 ea NOTE XX ; Start 03/23/19 at 18:30 Glucose (Glutose) 15 gm Q15M PRN PO DECREASED GLUCOSE; Start 03/23/19 at 18:30 Glucose (Glutose) 22.5 gm Q15M PRN PO DECREASED GLUCOSE; Start 03/23/19 at 18:30 Dextrose (D50w Syringe) 25 ml Q15M PRN IV DECREASED GLUCOSE; Start 03/23/19 at 18:30 Dextrose (D50w Syringe) 50 ml Q15M PRN IV DECREASED GLUCOSE; Start 03/23/19 at 18:30 Glucagon (Glucagen) 1 mg Q15M PRN IM DECREASED GLUCOSE; Start 03/23/19 at 18:30 Glucose (Glutose) 15 gm Q15M PRN BUCCAL DECREASED GLUCOSE; Start 03/23/19 at 18:30 Epoetin Joseph-epbx (Retacrit (Esrd)) 10,000 unit TuThSa@1700 SC Last administered on 04/11/19 17:00; Admin Dose 10,000 UNIT; Start 03/24/19 at 17:00 Acetaminophen/ Hydrocodone Bitart ([place] (5/325)) 1 tab Q6H PRN PO .MOD PAIN 4- 6 Last administered on 04/11/19 16:50; Admin Dose 1 TAB; Start 03/24/19 at 22:30 Albuterol/ Ipratropium (Duoneb) 3 ml Q4HWA RESP THERAPY HHN Last administered on 04/13/19 09:53; Admin Dose 3 ML; Start 03/27/19 at 21:00 Heparin Sodium (Porcine) (Heparin (5000 Units/1ml)) 5,000 unit BID SC Last administered on 04/13/19 09:39; Admin Dose 5,000 UNIT; Start 03/29/19 at 21:00 Metoclopramide HCl (Reglan) 5 mg Q6 IV Last administered on 04/13/19 12:06; Admin Dose 5 MG; Start 03/29/19 at 18:00 Diagnostic Test (Pha) (Accu-Chek) 1 ea 02 XX Last administered on 04/08/19 02:13; Admin Dose 1 EA; Start 04/01/19 at 02:00 Insulin Aspart (Novolog Insulin Pen) NOVOLOG *MODERATE* ALGORITHM WITH MEALS BEDTIME SC Last administered on 04/12/19 12:15; Admin Dose 4 UNIT; Start 03/31/19 at 21:00 Metoclopramide HCl (Reglan) 5 mg Q6H PRN IV NAUSEA; Start 04/01/19 at 09:35 Docusate Sodium/ Ferrous Fumarate (Angela-Sequels) 1 tab DAILY PO Last administered on 04/13/19 12:06; Admin Dose 1 TAB; Start 04/02/19 at 12:30; Stop 05/02/19 at 12:29 Alfuzosin HCl (Uroxatral) 10 mg HS PO Last administered on 04/12/19 21:58; Admin Dose 10 MG; Start 04/05/19 at 21:00 Zolpidem Tartrate (Ambien) 5 mg HS PRN PO INSOMNIA Last administered on 04/12/19 21:58; Admin Dose 5 MG; Start 04/05/19 at 21:30 Insulin Glargine (Lantus) 5 units DAILY@2000 SC Last administered on 04/12/19 22:19; Admin Dose 5 UNITS; Start 04/06/19 at 20:00 Nystatin (Nystatin Susp) 5 ml Q8 PO Last administered on 04/13/19 05:20; Admin Dose 5 ML; Start 04/06/19 at 22:00; Stop 04/13/19 at 21:59 Multivit/Ca Carb/ B Cmplx/FA/Prenat (Gilda-Jennifer) 1 tab DAILY PO Last administered on 04/13/19 09:56; Admin Dose 1 TAB; Start 04/07/19 at 09:00 Heparin Sodium (Porcine) (Heparin (1000 Units/ml)) 4,500 unit AFTER DIALYSIS CATHETER Last administered on 04/11/19 14:30; Admin Dose 4,500 UNIT; Start 04/07/19 at 16:00 Ranitidine HCl (Zantac) 150 mg QHS PO Last administered on 04/12/19 21:58; Admin Dose 150 MG; Start 04/08/19 at 21:00 Losartan Potassium (Cozaar) 25 mg BID PO Last administered on 04/12/19 21:59; Admin Dose 25 MG; Start 04/09/19 at 21:00 Aspirin (Aspirin) 81 mg DAILY PO Last administered on 04/13/19 09:30; Admin Dose 81 MG; Start 04/10/19 at 09:00 Carvedilol (Coreg) 25 mg BID PO Last administered on 04/12/19 21:58; Admin Dose 25 MG; Start 04/09/19 at 21:00 Albumin Human 100 ml @ 100 mls/hr WITH DIALYSIS PRN IV SBP <90 DURING DIALYSIS; Start 04/11/19 at 12:30 Ferric Sodium Gluconate Complex 125 mg/Sodium Chloride 100 ml @ 100 mls/hr DAILY@1300 IVPB Last administered on 04/12/19 13:49; Admin Dose 100 MLS/HR; Start 04/12/19 at 13:30; Stop 04/14/19 at 13:59 PAULIE NORTON MD Apr 13, 2019 13:16
[2019-04-13] MEDS: HEPARIN 1000 UNITS/ML 10 ML INJ CATHETER SCH (13:35)
[2019-04-13] MEDS: SOD FERRIC GLUC COMPLX 125 MG in SOD CHLORIDE 0.9% 100 ML IVPB SCH (14:55)
[2019-04-13] MEDS: LOSARTAN 25 MG TAB PO SCH (14:59)
--- NOTE | 2019-04-13 15:12 | CONS ---
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 - h/o amputation of R 5th toe - s/p revision R TMA surgery 04/09/2019 - s/p R TMA with wound VAC placement 04/06/19 - PVD of RLE - h/o percutaneous intervention of RLE in the past - h/o occluded R popliteal artery in doppler in 01/2019 - s/p R SFA to posterior tibial bypass using in situ greater saphenous vein from R thigh and calf on 03/23/2019 - Pt completed meropenem (03/29/2019-04/04/2019), pip/tazo (03/25/19-03/28/19) and IV vancomycin (03/25/19-03/30/19) # other conditions - thrush noted 04/06/19-->resolved after PO fluconazole x 3 days (04/06/2019- 04/09/2019) and nystatin swish and spit x 7 days (04/06/19-04/13/2019) - DM - Hgb A1c 5.7% - anemia of chronic disease - former smoker - constipation Recommendations: - monitor Pt off systemic antibiotics Management discussed with patient and with Dr. Somers Consultation Date/Type/Reason Admit Date/Time Mar 23, 2019 at 06:13 Initial Consult Date 03/28/19 Type of Consult Infectious Disease Requesting Provider: JOSE PARRY MD Date/Time of Note DATE: 04/13/19 TIME: 15:11 24 HR Interval Summary Free Text/Dictation Pt denies pain, SOB, n/v/d. Pt asking when he can go home. Awaiting outpatient HD arrangement per chart review. Exam/Review of Systems Exam Vitals Vital Signs Date Temp Pulse Resp B/P (MAP) Pulse Ox O2 O2 Flow FiO2 Time Delivery Rate 04/13/19 80 14:00 04/13/19 16 95 21 13:20 04/13/19 98.2 107/53 11:25 (71) 04/13/19 Room Air 11:00 04/12/19 2.0 09:09 Intake and Output 04/12/19 04/12/19 04/13/19 1515:00 23:00 07:00 IntakeIntake Total 360 ml 340 ml 440 ml OutputOutput Total 1100 ml BalanceBalance 360 ml 340 ml -660 ml Constitutional: alert, oriented, well developed Psych: no complaints Head: normocephalic, atraumatic Eyes: nl conjunctiva, nl lids, nl sclera ENMT: nl external ears & nose, nl nasal mucosa & septum, mucosa pink and moist Neck: supple Respiratory: clear to auscultation, normal air movement Cardiovascular: regular rate and rhythm, nl pulses; No edema Gastrointestinal: soft, non-tender; No distended Genitourinary - Male: other (HD pt) Musculoskeletal: other (RLE bypass site is well approximated with few steristrips with no drainage or signs of infection) Extremities: other (R TMA dressed c/d/i) Neurological: ADOBE FLEX DEVELOPER II-XII intact, nl mental status, nl speech (Martiniquais speaking) Skin: nl turgor; No rash or lesions Results Result Diagram: 04/13/19 0554 04/13/19 0554 Results 24hrs Laboratory Tests Test 04/12/19 16:53 04/12/19 22:03 04/12/19 22:04 04/13/19 05:54 Bedside Glucose 118 169 163 White Blood Count 5.8 Red Blood Count 2.51 L Hemoglobin 7.6 L Hematocrit 24.6 L Mean Corpuscular 98.0 Volume Mean Corpuscular 30.3 Hemoglobin Mean Corpuscular 30.9 L Hemoglobin Concent Red Cell 18.1 H Distribution Width Platelet Count 139 L Mean Platelet Volume 11.2 H Immature 1.600 H Granulocytes % Neutrophils % 72.3 Lymphocytes % 11.6 L Monocytes % 9.5 Eosinophils % 5.0 Basophils % 0.0 Nucleated Red Blood 0.3 H Cells % Immature 0.090 H Granulocytes # Neutrophils # 4.2 Lymphocytes # 0.7 L Monocytes # 0.6 Eosinophils # 0.3 Basophils # 0.0 Nucleated Red Blood 0.0 Cells # Sodium Level 132 L Potassium Level 5.4 H Chloride Level 99 Carbon Dioxide Level 26 Anion Gap 7 Blood Urea Nitrogen 48 #H Creatinine 4.37 #H Est Glomerular 13 L Filtrat Rate mL/min Glucose Level 87 Calcium Level 7.4 L Phosphorus Level 2.6 Total Bilirubin 0.3 Direct Bilirubin 0.00 Indirect Bilirubin 0.3 Aspartate Amino 25 Transf (AST/SGOT) Alanine 16 Aminotransferase (AL T/SGPT) Alkaline Phosphatase 73 Total Protein 4.7 L Albumin 2.5 L Globulin 2.20 Albumin/Globulin 1.13 Ratio Test 04/13/19 07:53 04/13/19 12:04 Bedside Glucose 106 113 Medications Medication Current Medications Atorvastatin Calcium (Lipitor) 40 mg QHS PO Last administered on 04/12/19at 21:58; Admin Dose 40 MG; Start 03/23/19 at 21:00 Linagliptin (Tradjenta) 5 mg DAILY PO Last administered on 04/13/19at 09:31; Admin Dose 5 MG; Start 03/24/19 at 09:00 Ondansetron HCl (Zofran Inj) 4 mg Q4H PRN IV NAUSEA AND/OR VOMITING Last a dministered on 04/05/19at 06:29; Admin Dose 4 MG; Start 03/23/19 at 18:00 Hydromorphone HCl (Dilaudid) 2 mg Q4H PRN IV SEVERE PAIN LEVEL 7-10 Last administered on 04/13/19at 05:20; Admin Dose 2 MG; Start 03/23/19 at 18:00 Miscellaneous Information 1 ea NOTE XX ; Start 03/23/19 at 18:30 Glucose (Glutose) 15 gm Q15M PRN PO DECREASED GLUCOSE; Start 03/23/19 at 18:30 Glucose (Glutose) 22.5 gm Q15M PRN PO DECREASED GLUCOSE; Start 03/23/19 at 18:30 Dextrose (D50w Syringe) 25 ml Q15M PRN IV DECREASED GLUCOSE; Start 03/23/19 at 18:30 Dextrose (D50w Syringe) 50 ml Q15M PRN IV DECREASED GLUCOSE; Start 03/23/19 at 18:30 Glucagon (Glucagen) 1 mg Q15M PRN IM DECREASED GLUCOSE; Start 03/23/19 at 18:30 Glucose (Glutose) 15 gm Q15M PRN BUCCAL DECREASED GLUCOSE; Start 03/23/19 at 18:30 Epoetin Joseph-epbx (Retacrit (Esrd)) 10,000 unit TuThSa@1700 SC Last administered on 04/11/19 17:00; Admin Dose 10,000 UNIT; Start 03/24/19 at 17:00 Acetaminophen/ Hydrocodone Bitart ([place] (5/325)) 1 tab Q6H PRN PO .MOD PAIN 4- 6 Last administered on 04/11/19 16:50; Admin Dose 1 TAB; Start 03/24/19 at 22:30 Albuterol/ Ipratropium (Duoneb) 3 ml Q4HWA RESP THERAPY HHN Last administered on 04/13/19 13:19; Admin Dose 3 ML; Start 03/27/19 at 21:00 Heparin Sodium (Porcine) (Heparin (5000 Units/1ml)) 5,000 unit BID SC Last administered on 04/13/19 09:39; Admin Dose 5,000 UNIT; Start 03/29/19 at 21:00 Metoclopramide HCl (Reglan) 5 mg Q6 IV Last administered on 04/13/19 12:06; Admin Dose 5 MG; Start 03/29/19 at 18:00 Diagnostic Test (Pha) (Accu-Chek) 1 ea 02 XX Last administered on 04/08/19 02:13; Admin Dose 1 EA; Start 04/01/19 at 02:00 Insulin Aspart (Novolog Insulin Pen) NOVOLOG *MODERATE* ALGORITHM WITH MEALS BEDTIME SC Last administered on 04/12/19 12:15; Admin Dose 4 UNIT; Start 03/31/19 at 21:00 Metoclopramide HCl (Reglan) 5 mg Q6H PRN IV NAUSEA; Start 04/01/19 at 09:35 Docusate Sodium/ Ferrous Fumarate (Angela-Sequels) 1 tab DAILY PO Last administered on 04/13/19 12:06; Admin Dose 1 TAB; Start 04/02/19 at 12:30; Stop 05/02/19 at 12:29 Alfuzosin HCl (Uroxatral) 10 mg HS PO Last administered on 04/12/19 21:58; Admin Dose 10 MG; Start 04/05/19 at 21:00 Zolpidem Tartrate (Ambien) 5 mg HS PRN PO INSOMNIA Last administered on 04/12/19 21:58; Admin Dose 5 MG; Start 04/05/19 at 21:30 Insulin Glargine (Lantus) 5 units DAILY@2000 SC Last administered on 04/12/19 22:19; Admin Dose 5 UNITS; Start 04/06/19 at 20:00 Nystatin (Nystatin Susp) 5 ml Q8 PO Last administered on 04/13/19 15:00; Admin Dose 5 ML; Start 04/06/19 at 22:00; Stop 04/13/19 at 21:59 Multivit/Ca Carb/ B Cmplx/FA/Prenat (Gilda-Jennifer) 1 tab DAILY PO Last administered on 04/13/19 09:56; Admin Dose 1 TAB; Start 04/07/19 at 09:00 Heparin Sodium (Porcine) (Heparin (1000 Units/ml)) 4,500 unit AFTER DIALYSIS CATHETER Last administered on 04/13/19 13:35; Admin Dose 4,500 UNIT; Start 04/07/19 at 16:00 Ranitidine HCl (Zantac) 150 mg QHS PO Last administered on 04/12/19 21:58; Admin Dose 150 MG; Start 04/08/19 at 21:00 Losartan Potassium (Cozaar) 25 mg BID PO Last administered on 04/13/19 14:59; Admin Dose 25 MG; Start 04/09/19 at 21:00 Aspirin (Aspirin) 81 mg DAILY PO Last administered on 04/13/19 09:30; Admin Dose 81 MG; Start 04/10/19 at 09:00 Carvedilol (Coreg) 25 mg BID PO Last administered on 04/13/19 14:59; Admin Dose 25 MG; Start 04/09/19 at 21:00 Albumin Human 100 ml @ 100 mls/hr WITH DIALYSIS PRN IV SBP <90 DURING DIALYSIS; Start 04/11/19 at 12:30 Ferric Sodium Gluconate Complex 125 mg/Sodium Chloride 100 ml @ 100 mls/hr DAILY@1300 IVPB Last administered on 04/13/19 14:55; Admin Dose 100 MLS/HR; Start 04/12/19 at 13:30; Stop 04/14/19 at 13:59 LEONIE MIRANDA NP Apr 13, 2019 15:12
--- NOTE | 2019-04-13 16:58 | PDOCDIS ---
Discharge Instructions DIAGNOSIS Discharge Diagnosis R foot gangrene w/ RLE PVD s/p revascularization, s/p transmetatarsal amputation; acute on chronic renal failure leading to permanent ESRD; nosocomial pneumonia, resolved; T2DM, HTN, hyperlipidemia, BPH, anemia of chronic kidney disease CONDITION [id number] Patient Condition: [id number] Fair HOME CARE INSTRUCTIONS: [id number] Diet Instructions: [id number] renal, carb controlled ACTIVITY: [id number] Activity Restrictions: [id number] Slowly Increase Activity Partial Weight Bearing (RLE) [id number] Bathing Restrictions: [id number] Tub Bath FOLLOW UP/APPOINTMENTS Follow-up Plan f/u w/ Dr. Monaco 2 weeks; f/u w/ Dr. Mtz 2 weeks; f/u w/ Dr. Queen in hemodialysis as scheduled. JOSE MTZ MD Apr 13, 2019 16:58
--- NOTE | 2019-04-13 17:15 | DS ---
Date/Time of Note Date/Time of Note DATE: 04/13/19 TIME: 17:07 Discharge Summary Admission/Discharge Info Admit Date/Time Mar 23, 2019 at 06:13 Discharge Date/Time 04/13/2019 @ 1800 Discharge Diagnosis R foot gangrene w/ RLE PVD s/p revascularization, s/p transmetatarsal amputation; acute on chronic renal failure leading to permanent ESRD; nosocomial pneumonia, resolved; T2DM, HTN, hyperlipidemia, BPH, anemia of chronic kidney disease Patient Condition: Fair Consults Cullen Monaco, vascular surgery; Solo Caal, podiatry; Pranay Queen, nephrology; Michele Richard, cardiology; Zuri Carrillo, ID; Guille Pham. pulmonology Procedures 03/23/19: Right SFA to posterior tibial bypass using in situ greater saphenous vein from the right thigh and calf; 03/30/19: Patchy bilateral ground-glass and consolidative opacities in a predominantly perihilar distribution. These are most consistent with a multifocal pneumonia. Small to moderate right and small left pleural effusions. Anterior mediastinal, right paratracheal, and subcarinal lymphadenopathy, probably reactive. Mild atherosclerotic calcifications; 04/06/19: Insertion of right internal jugular vein tunneled hemodialysis catheter using ultrasound and fluoroscopic guidance; 04/06/19: Open transmetatarsal amputation of right foot, Application of wound VAC to right foot; Hx of Present Illness 68 y/o H M w/ h/o T2DM, PVD s/p toe amputations, HTN, CKD stage 4, p/w new gangrenous changes R great and 2nd toes 1 week ago. Local cellulitis effectively treated w/ antibiotics. Now returns for scheduled revascularization of RLE. S/p R fem-posterior tibialis bypass graft, POD#0. C/o pain and nausea but o/w doing well. Hospital Course Pt. had complicated course post-operatively. By HD#4 he had developed a significant rise in serum Cr and had to begin hemodialysis. Subsequently developed respiratory distress which was initially felt to be due to volume overload so dialysis was increased. However, evaluation of chest revealed pneumonia requiring expansion of antibiotic coverage, stay in ICU w/ high flow O2, and IV steroids. Pt. stabilized clinically and was able to have his transmetatarsal amputation. Pt. has done well with this. Requires wheelchair to ambulate. Status of vascular grafting is good and viable tissue remains on foot. Pneumonia resolved and pt. stable on HD. Has f/u w/ HD and ready for d/c. Home Meds Active Scripts Carvedilol* (Carvedilol*) 25 Mg Tablet, 25 MG PO BID for 30 Days, #60 TAB 5 Refills Prov:MICHELE MTZ MD 04/13/19 Multivit/Ca Carb/B Cmplx/Fa* (Gilda-Jennifer*) 1 Tab Tab, 1 TAB PO DAILY for 30 Days, #30 TAB 5 Refills Prov:MICHELE MTZ MD 04/13/19 [Insulin Glargine] 100 UNITS/ML SOLN No Conflict Check, 5 UNITS SC DAILY@1999 for 30 Days, #1 SYR 5 Refills Prov:MICHELE MTZ MD 04/13/19 Aspirin (Aspirin) 81 Mg Chew, 81 MG PO DAILY for 30 Days, #30 TAB 5 Refills Prov:MICHELE MTZ MD 04/13/19 Losartan Potassium* (Cozaar*) 25 Mg Tablet, 25 MG PO BID for 30 Days, #60 TAB 5 Refills Prov:MICHELE MTZ MD 04/13/19 Amoxicillin/Potassium Clav (Amox-Clav 875-125 mg Tablet) 875-125 mg Tab, 1 TAB PO BID for 5 Days, #10 TAB 0 Refills Prov:MICHELE MTZ MD 03/18/19 Linagliptin (TRADJENTA) 5 Mg Tablet, 5 MG PO DAILY for 30 Days, #30 TAB 3 Refills Prov:MICHELE MTZ MD 03/18/19 Hydrocodone Bit-Acetaminophen (Hydrocodone Bit-APAP) 5-325MG Tablet, 1 TAB PO Q6H PRN for .MOD PAIN 4-6 for 5 Days, #20 TAB 0 Refills Prov:MICHELE MTZ MD 03/18/19 Ferrous Sulfate* (Ferrous Sulfate*) 325 Mg Tabec, 325 MG PO TID for 30 Days, #90 TAB 2 Refills Prov:MICHELE MTZ MD 03/18/19 Ranitidine Hcl* (Ranitidine Hcl*) 150 Mg Tablet, 150 MG PO DAILY for 30 Days, #30 TAB 5 Refills Prov:MICHELE MTZ MD 02/02/19 Metoclopramide Hcl* (Metoclopramide Hcl*) 5 Mg Tablet, 5 MG PO AC MEALS for 30 Days, #90 TAB 5 Refills Prov:MICHELE MTZ MD 02/02/19 Carvedilol* (Carvedilol*) 12.5 Mg Tablet, 12.5 MG PO BID for 30 Days, #60 TAB 5 Refills Prov:MICHELE MTZ MD 02/02/19 Cilostazol* (Cilostazol*) 100 Mg Tablet, 50 MG PO BID for 30 Days, #30 TAB 5 Refills Prov:MICHELE MTZ MD 02/02/19 Reported Medications Glycopyrrolate* (Glycopyrrolate*) 1 Mg Tablet, 1 MG PO BID, TAB 01/29/19 Amlodipine Besylate* (Norvasc*) 5 Mg Tablet, 5 MG PO DAILY, TAB 01/29/19 Ergocalciferol (Vitamin D2) (VITAMIN D2) 50,000 Unit Capsule, 18281 UNIT PO Q FRI, CAP 01/29/19 Atorvastatin* (Atorvastatin*) 40 Mg Tablet, 40 MG PO QHS, #30 TAB 01/29/19 Follow-up Plan f/u w/ Dr. Monaco 2 weeks; f/u w/ Dr. Mtz 2 weeks; f/u w/ Dr. Queen in hemodialysis as scheduled. Primary Care Provider Not On Staff Doctor Time spent on discharge: > 30 minutes Pending Labs Laboratory Tests Test 04/12/19 22:03 04/12/19 22:04 04/13/19 05:54 04/13/19 07:53 Bedside 169 163 106 Glucose mg/dL (70-220) mg/dL (70-220) mg/dL (70-220) White Blood 5.8 Count 10^3/ul (4.8-1 0.8) Red Blood 2.51 Count 10^6/ul (4.70- 6.10) Hemoglobin 7.6 g/dl (14.0-18. 0) Hematocrit 24.6 % (42.0-52.0) Mean 98.0 Corpuscular fl (82.0-101.0 Volume ) Mean 30.3 Corpuscular pg (29.0-33.0) Hemoglobin Mean 30.9 Corpuscular g/dl (32.0-37. Hemoglobin Conc 0) ent Red Cell 18.1 Distribution % (11.5-14.5) Width Platelet Count 139 10^3/UL (140-4 15) Mean Platelet 11.2 Volume fl (7.4-10.4) Immature 1.600 Granulocytes % % (0.001-0.429 ) Neutrophils % 72.3 % (39.0-77.0) Lymphocytes % 11.6 % (15.0-51.0) Monocytes % 9.5 % (0.0-11.0) Eosinophils % 5.0 % (0.0-7.0) Basophils % 0.0 % (0.0-2.0) Nucleated Red 0.3 Blood Cells % /100WBC (0.0-0 .0) Immature 0.090 Granulocytes # 10^3/ul (0.0-0 .031) Neutrophils # 4.2 10^3/ul (1.6-7 .5) Lymphocytes # 0.7 10^3/ul (0.8-2 .9) Monocytes # 0.6 10^3/ul (0.3-0 .9) Eosinophils # 0.3 10^3/ul (0.0-0 .5) Basophils # 0.0 10^3/ul (0.0-0 .1) Nucleated Red 0.0 Blood Cells # 10^3/ul (0.0-0 .0) Sodium Level 132 mmol/L (135-14 4) Potassium 5.4 Level mmol/L (3.5-5. 1) Chloride Level 99 mmol/L (97-110 ) Carbon Dioxide 26 Level mmol/L (21-31) Anion Gap 7 (5-13) Blood Urea 48 Nitrogen mg/dl (7-20) Creatinine 4.37 mg/dl (0.61-1. 24) Est Glomerular 13 Filtrat mL/min (>60) Rate mL/min Glucose Level 87 mg/dl (70-220) Calcium Level 7.4 mg/dl (8.4-10. 2) Phosphorus 2.6 Level mg/dl (2.5-4.9 ) Total 0.3 Bilirubin mg/dl (0.2-1.3 ) Direct 0.00 Bilirubin mg/dl (0.00-0. 20) Indirect 0.3 Bilirubin mg/dl (0-1.1) Aspartate Amino 25 Transf (AST/SGO IU/L (15-46) T) Alanine 16 Aminotransferas IU/L (13-69) e (ALT/SGPT) Alkaline 73 Phosphatase IU/L (42-121) Total Protein 4.7 g/dl (6.1-8.1) Albumin 2.5 g/dl (3.3-4.9) Globulin 2.20 g/dl (1.3-3.2) Albumin/Globuli 1.13 n Ratio Test 04/13/19 12:04 Bedside 113 Glucose mg/dL (70-220) MICHELE MTZ MD Apr 13, 2019 17:15
== END 2019-04-13 18:09 | disposition home health service (06) | DRG 239 ==
LOC: REC 06:13 → ICU 11:20 → 6WM 03-24 23:29 → ICU 03-27 11:28 → TEL 04-07 23:05
PROVIDERS: ADMIT Surgery Vascular Surgery; ATTEND Surgery Vascular Surgery
PROC: 041K09N Bypass Right Femoral Artery to Posterior Tibial Artery with Autologous Venous Tissue, Open Approach (ICD-10-PCS; principal; 2019-03-23 07:30)
PROC: 30233N1 Transfusion of Nonautologous Red Blood Cells into Peripheral Vein, Percutaneous Approach (ICD-10-PCS; 2019-03-26)
PROC: 5A1D70Z Performance of Urinary Filtration, Intermittent, Less than 6 Hours Per Day (ICD-10-PCS; 2019-03-27)
PROC: 0Y6M0Z9 Detachment at Right Foot, Partial 1st Ray, Open Approach (ICD-10-PCS; 2019-04-06)
PROC: 0Y6M0ZB Detachment at Right Foot, Partial 2nd Ray, Open Approach (ICD-10-PCS; 2019-04-06)
PROC: 0Y6M0ZC Detachment at Right Foot, Partial 3rd Ray, Open Approach (ICD-10-PCS; 2019-04-06)
PROC: 0Y6M0ZD Detachment at Right Foot, Partial 4th Ray, Open Approach (ICD-10-PCS; 2019-04-06)
PROC: 0Y6M0ZF Detachment at Right Foot, Partial 5th Ray, Open Approach (ICD-10-PCS; 2019-04-06)
PROC: 0JH63XZ Insertion of Tunneled Vascular Access Device into Chest Subcutaneous Tissue and Fascia, Percutaneous Approach (ICD-10-PCS; 2019-04-06)
PROC: 02H633Z Insertion of Infusion Device into Right Atrium, Percutaneous Approach (ICD-10-PCS; 2019-04-06)
PROC: 0HXMXZZ Transfer Right Foot Skin, External Approach (ICD-10-PCS; 2019-04-09)
PROC: 0QBN0ZZ Excision of Right Metatarsal, Open Approach (ICD-10-PCS; 2019-04-09)
DX: E11.52 Type 2 diabetes mellitus with diabetic peripheral angiopathy with gangrene (principal); J96.01 Acute respiratory failure with hypoxia; J18.9 Pneumonia, unspecified organism; N18.6 End stage renal disease; D62 Acute posthemorrhagic anemia; I96 Gangrene, not elsewhere classified; N13.8 Other obstructive and reflux uropathy; N17.9 Acute kidney failure, unspecified; I12.0 Hypertensive chronic kidney disease with stage 5 chronic kidney disease or end stage renal disease; I47.2 Ventricular tachycardia; E11.22 Type 2 diabetes mellitus with diabetic chronic kidney disease; D63.1 Anemia in chronic kidney disease; D72.829 Elevated white blood cell count, unspecified; E11.42 Type 2 diabetes mellitus with diabetic polyneuropathy; E78.5 Hyperlipidemia, unspecified; E87.5 Hyperkalemia; E55.9 Vitamin D deficiency, unspecified; F10.11 Alcohol abuse, in remission; K11.7 Disturbances of salivary secretion; K59.00 Constipation, unspecified; N40.1 Benign prostatic hyperplasia with lower urinary tract symptoms; R60.9 Edema, unspecified; R11.0 Nausea; Y95 Nosocomial condition; Z87.891 Personal history of nicotine dependence; Z99.2 Dependence on renal dialysis; Z89.412 Acquired absence of left great toe; Z79.84 Long term (current) use of oral hypoglycemic drugs
CPT/HCPCS: 36430; 36600; 71045; 71250; 73620; 74018; 76856; 80048; 80053; 80202; 81001; 82550; 82553; 82728; 82803; 82962; 83540; 83605; 83735; 83880; 84100; 84132; 84145; 84300; 84484; 85025; 85335; 85610; 85730; 86644; 86706; 86850; 86900; 86901; 86920; 87070; 87081; 87086; 87340; 88304; 88305; 88311; 90935; 93005; 93970; 94640; 94660; 94664; 94668; 94669; 97110; 97116; 97162; 97164; 97530; J0360; J0690; J1100; J1170; J1644; J1815; J1940; J2185; J2250; J2405; J2543; J2710; J2765; J2795; J2916; J2920; J2930; J2997; J3010; J3370; J3475; J7030; J7040; J7050; J7070; J7120; P9016; P9047; Q5105